=== PATIENT | female | born 1955 | race Caucasian/White ===

== ENCOUNTER 2017-04-08 17:59 | Inpatient (IN) | payer MEDICARE, OTHER ==
[~2017-04-08] VITALS: Ht 162.6 cm; Wt 87.8 kg
[~2017-04-08 17:59] MED LIST: AMLO10 PO; ASPI81TA45 PO; CITA-48 PO; COLL30OI3 TOP; DOCU1CAP39 PO; ERTA1P IVPB; HYDRA50 PO; LANSO30 PO; LEVEMIR SQ; METO25 PO; NOVOINJ SQ; NYSTT TOP; POTA10IN2 PO; VITA500C PO; [UNRECOGNIZED DRUG - CODE] PO; [UNRECOGNIZED DRUG - CODE] PO
[2017-04-08 18:08] VITALS: BP 173/101; PULSE 96; RESP 28; TEMP 97.7; O2SAT 97
[2017-04-08] MEDS ORDERED: THERM PO (18:49)
[2017-04-08] MEDS ORDERED: METO25TA3 PO (18:49)
[2017-04-08] MEDS ORDERED: FERR325T8 PO (18:49)
[2017-04-08] MEDS ORDERED: HYDR-3583 PO (18:49)
[2017-04-08] MEDS ORDERED: BUME1TAB PO (18:49)
[2017-04-08] MEDS ORDERED: [UNRECOGNIZED DRUG - CODE] PO (18:49)
[2017-04-08] MEDS ORDERED: GABA100C4 PO (18:49)
[2017-04-08] MEDS ORDERED: AMLO10TA2 PO (18:49)
[2017-04-08] MEDS ORDERED: SERT-132 PO (18:49)
[2017-04-08] MEDS ORDERED: SENN8.6T36 PO (18:49)
[2017-04-08] MEDS ORDERED: POTA10CA PO (18:49)
[2017-04-08] MEDS ORDERED: HYDR-3801 PO (18:49)
[2017-04-08] MEDS ORDERED: LEVEMIR SQ (18:49)
[2017-04-08] MEDS ORDERED: OMEP20TA PO (18:49)
[2017-04-08] MEDS ORDERED: SPIR25TA PO (18:49)
[2017-04-08] MEDS ORDERED: LORA-373 PO (18:49)
[2017-04-08] MEDS ORDERED: ASPI81TA11 PO (18:49)
[2017-04-08] MEDS ORDERED: RISP0.5T2 PO (18:49)
--- NOTE | 2017-04-08 19:01 | PD ---
HPI Chief Complaint: Respiratory Symptoms Time Seen by Provider: 18:43 Travel History International Travel<30 days: No Contact w/Intl Traveler<30days: No Traveled to known affect area: No History of Present Illness HPI 61-year-old female brought in from [facility] with question of pneumonia. Patient has history of left hemiplegia and hemiparesis following a cerebral infarction, GCS of 6, history of essential hypertension, dysphagia, or depressive disorder, type 2 diabetes, schizophrenia, and history of atrial fibrillation. Patient has a history of MRSA. Patient is very limited in her ability to converse. Call was placed to the nursing facility to determine why they sent her over here specifically. [facility] staff reported that she was found with cyanosis around the lips and mottling of the hands and fingers with decreased O2 sat. Patient was placed on 4 L of O2 and did improve, but then had episodes of dropping into the high 80s low 90s on an O2 sat. EMS was called have her evaluated here. She is noted to be 100% on room air with 2 L nasal cannula. Vital signs are stable. Temperature is 97.7 orally. Patient has history of MRSA as well as recurrent urinary tract infections. Patient has no known drug allergies. PFSH Past Medical History Anemia: Yes Arthritis: Yes Asthma: No Atrial Fibrillation: Yes Blood Disorders: No Bipolar Disorder: Yes Anxiety: Yes Depression: Yes Heart Rhythm Problems: Yes (TACHYCARDIA ) Cancer: No Cardiac Catheterization: Yes (2007) Cardiovascular Problems: Yes High Cholesterol: No Chemotherapy: No Chest Pain: No Congestive Heart Failure: No COPD: No Cerebrovascular Accident: Yes Coronary Artery Disease: Yes Diabetes: Yes Patient Takes Glucophage: No Diminished Hearing: No GERD: No Glaucoma: No Genitourinary: Yes (HYDRONEPHROSIS, KIDNEY CALCULUS ) Headaches: Yes Hepatitis: No Hiatal Hernia: No Hypertension: Yes Kidney Stones: No Musculoskeletal: Yes Neurologic: Yes Psychiatric: Yes Immunizations Current: No Migraines: No Myocardial Infarction: No Radiation Therapy: No Renal Failure: No Schizophrenia: Yes Seizures: No Sickle Cell Disease: No Sleep Apnea: No Thyroid Disease: No Ulcer: No PNEUMOCCOCAL Vaccine (Year): 1 Menopausal: Yes : 1 Para: 1 Past Surgical History Abdominal Surgery: Yes (HYSTERECTOMY) AICD: No Appendectomy: No Arteriovenous Shunt: No Body Medical Devices: CARDIAC STENT Section: Yes Cholecystectomy: No Coronary Stent: Yes Endocrine Surgery: No Gynecologic Surgery: Yes (HYSTRECTOMY ) Hysterectomy: Yes (1988) Insulin Pump: No Joint Replacement: No Neurologic Surgery: Yes (unknown) Oral Surgery: Yes (EXTRACTION) Pacemaker: No Tonsillectomy: Yes Other Surgery: Yes Social History Alcohol Use: No Tobacco Use: No Substance Use: No Allergies-Medications (Allergen,Severity, Reaction): Coded Allergies: *MDRO Multi-Drug Resistant Organism (Verified Adverse Reaction, Unknown, 05/23/15) 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 ESBL + E. 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 Thera M Plus (Multivitamins/Minerals Therapeutic) 1 Tab 1 Tab PO DAILY Spironolactone 25 Mg Tab 25 Mg PO DAILY Sertraline (Sertraline HCl) 50 Mg Tab 50 Mg PO DAILY Senna-Tabs (Sennosides) 8.6 Mg Tab 8.6 Mg PO BID Risperidone 0.5 Mg Tab 0.5 Mg PO TID Potassium Chloride ER (Potassium Chloride) 10 Meq Cap 10 Meq PO DAILY Omeprazole 20 Mg Tab 20 Mg PO DAILY Metoprolol Tartrate 25 Mg Tab 25 Mg PO BID Lorazepam 0.5 Mg Tab 0.5 Mg PO TID PRN Hydrocodone-Acetaminophen 10-325 mg Tab 1 Tab PO Q4H PRN Hydralazine (Hydralazine HCl) 100 Mg Tab 50 Mg PO TID Take with meals Review of Systems ROS Limitations: Unresponsive, Speech Impaired, Poor Historian, Other: (GCS 6 is her norm.) General / Constitutional: No: Fever Eyes: No: Visual changes HENT: No: Headaches Cardiovascular: No: Chest Pain or Discomfort Respiratory: No: Shortness of Breath Gastrointestinal: No: Abdominal Pain Genitourinary: No: Dysuria Musculoskeletal: No: Pain Skin: No Rash Neurologic: No: Weakness Psychiatric: No: Depression Endocrine: No: Polydipsia Hematologic/Lymphatic: No: Easy Bruising Physical Exam Narrative GENERAL: Patient appears to be resting comfortably. SKIN: Warm and dry. Normal color. Normal turgor. HEAD: Atraumatic. Normocephalic. EYES: Pupils equal and round. No scleral icterus. No injection or drainage. Patient has cataract and older appearing ulceration of the right eye. Left eye appears normal with reactive pupil. ENT: No nasal bleeding or discharge. Mucous membranes pink and moist. NECK: Trachea midline. Supple. CARDIOVASCULAR: Regular rate and rhythm. RESPIRATORY: No accessory muscle use. Clear to auscultation. Breath sounds equal bilaterally. GASTROINTESTINAL: Abdomen soft, non-tender, nondistended. Hepatic and splenic margins not palpable. MUSCULOSKELETAL: Extremities without clubbing, cyanosis, or edema. No obvious deformities. NEUROLOGICAL: Awake and alert. No obvious cranial nerve deficits. Motor grossly within normal limits. Five out of 5 muscle strength in the arms and legs. Normal speech. PSYCHIATRIC: Appropriate mood and affect; insight and judgment normal. Data Data Last Documented VS Vital Signs Date Time Temp Pulse Resp B/P (MAP) Pulse Ox O2 Delivery O2 Flow Rate FiO2 04/08/17 20:18 100 3.00 04/08/17 20:18 Nasal Cannula 04/08/17 19:19 75 12 Orders Orders Electrocardiogram (04/08/17 19:02) Complete Blood Count With Diff (04/08/17 19:02) Comprehensive Metabolic Panel (04/08/17 19:02) Lactic Acid Sepsis Protocol (04/08/17 19:02) Magnesium (Mg) (04/08/17 19:02) Urinalysis - C+S If Indicated (04/08/17 19:02) Blood Culture (04/08/17 19:02) Chest, Single Ap (04/08/17 19:02) Blood Glucose (04/08/17 19:02) Ecg Monitoring (04/08/17 19:02) Iv Access Insert/Monitor (04/08/17 19:02) Cath For Specimen (04/08/17:02) Oximetry (04/08/17 19:02) Oxygen Administration (04/08/17 19:02) Sodium Chlorid 0.9% 500 Ml Inj (Ns 500 M (04/08/17 20:45) Urinary Catheter Insert/Apply (04/08/17 20:59) Ct Brain W/O Iv Contrast(Rout) (04/08/17 21:06) Admit Order (Ed Use Only) (04/08/17 21:28) Primer Inspector / Telemetry ROSITA.Q8H (04/08/17 21:28) Vital Signs (Adult) Q4H (04/08/17 21:28) Activity Bed Rest (04/08/17 21:28) Notify Dr: Other (04/08/17 21:28) Labs Laboratory Tests Test 04/08/17 19:45 White Blood Count 13.7 TH/MM3 Red Blood Count 3.67 MIL/MM3 Hemoglobin 10.1 GM/DL Hematocrit 32.0 % Mean Corpuscular Volume 87.2 FL Mean Corpuscular Hemoglobin 27.5 PG Mean Corpuscular Hemoglobin Concent 31.5 % Red Cell Distribution Width 14.6 % Platelet Count 246 TH/MM3 Mean Platelet Volume 9.3 FL Neutrophils (%) (Auto) 74.5 % Lymphocytes (%) (Auto) 17.7 % Monocytes (%) (Auto) 6.5 % Eosinophils (%) (Auto) 0.8 % Basophils (%) (Auto) 0.5 % Neutrophils # (Auto) 10.2 TH/MM3 Lymphocytes # (Auto) 2.4 TH/MM3 Monocytes # (Auto) 0.9 TH/MM3 Eosinophils # (Auto) 0.1 TH/MM3 Basophils # (Auto) 0.1 TH/MM3 CBC Comment DIFF FINAL Differential Comment Urine Color YELLOW Urine Turbidity CLOUDY Urine pH 7.0 Urine Specific Halsey 1.018 Urine Protein 100 mg/dL Urine Glucose (UA) NEG mg/dL Urine Ketones NEG mg/dL Urine Occult Blood MOD Urine Nitrite NEG Urine Bilirubin NEG Urine Urobilinogen LESS THAN 2.0 MG/DL Urine Leukocyte Esterase LARGE Urine RBC 20 /hpf Urine WBC /hpf Urine Squamous Epithelial Cells 2 /hpf Urine Amorphous Sediment RARE Urine Bacteria MANY /hpf Microscopic Urinalysis Comment CATH-CULTURE IND Blood Urea Nitrogen 56 MG/DL Creatinine 3.43 MG/DL Random Glucose 137 MG/DL Total Protein 8.8 GM/DL Albumin 3.0 GM/DL Calcium Level 10.3 MG/DL Magnesium Level 2.7 MG/DL Alkaline Phosphatase 132 U/L Aspartate Amino Transf (AST/SGOT) 38 U/L Alanine Aminotransferase (ALT/SGPT) 32 U/L Total Bilirubin 0.4 MG/DL Sodium Level 145 MEQ/L Potassium Level 4.5 MEQ/L Chloride Level 105 MEQ/L Carbon Dioxide Level 28.7 MEQ/L Anion Gap 11 MEQ/L Estimat Glomerular Filtration Rate 14 ML/MIN Lactic Acid Level 0.3 mmol/L [facility] Medical Decision Making Medical Screen Exam Complete: Yes Emergency Medical Condition: Yes Differential Diagnosis Hypoxia. PE. Pneumonia. Electrolyte imbalance. Dehydration. Anemia. Renal insufficiency. Sepsis. Narrative Course Patient appears medically stable at time of exam. O2 sat is maintaining her 100 % with 2 L nasal cannula. Labs ordered including CBC, CMP,, blood cultures 2, and urinalysis. CT the head is ordered. Chest x-ray is ordered. CTA of the lungs are ordered to rule out PE pending creatinine. Chest x-ray is read as cardiomegaly with no acute pulmonary disease per radiologist. CBC shows leukocytosis of 13.7. Hemoglobin was 10.1. Hematocrit is 32.1. Chemistries show normal electrolytes but a BUN of 56, creatinine of 3.43 which is markedly elevated from her previous creatinine of 2.27 from October 2016. Random glucose is 137, calcium is 10.3, MBs of 2.7, AST is 38, ALT is 32, alkaline phosphatase 132, Lactic acid is 0.3. CTA of the lungs is canceled. IV bolus of 500 mL of normal saline. Patient is discussed with Dr. Perdomo who agrees with this plan. The hospitalist was called for admission due to the patient's acute on chronic kidney failure, elevated serum creatinine, and dehydration. Diagnosis Primary Impression: Acute on chronic kidney failure Qualified Codes: N17.9 - Acute kidney failure, unspecified; N18.9 - Chronic kidney disease, unspecified Additional Impressions: Elevated serum creatinine Dehydration Admitting Information Admitting Physician Requests: Admit Condition: Stable Julio Morales Apr 08, 2017 19:01
[2017-04-08 19:19] VITALS: BP 134/72; PULSE 75; RESP 12; O2SAT 100
--- NOTE | 2017-04-08 19:47 | RADRPT ---
EXAM DATE/TIME: 04/08/2017 19:12 [facility] COMPARISON: CHEST SINGLE AP, June 01, 2015, 13:36. INDICATIONS : Cough. MEDICAL HISTORY : unobtainable SURGICAL HISTORY : unobtainable ENCOUNTER: Initial ACUITY: 1 day PAIN SCORE: Non-responsive. LOCATION: Bilateral chest FINDINGS: The cardiac silhouette is enlarged in transverse diameter. The lungs are free of acute parenchymal op acity. No effusions are identified. The aortic knob is prominent with tortuosity of the descending th oracic aorta. CONCLUSION: 1. Cardiomegaly. No acute pulmonary disease. Lexa Glass MD on April 08, 2017 at 19:45 Board Certified Radiologist. This report was verified electronically.
[2017-04-08 20:00] LABS: AUTOMATED NEUTROPHIL # 10.2 TH/MM3 (1.8-7.7); BASOPHIL # 0.1 TH/MM3 (0-0.2); BASOPHIL % 0.5 % (0.0-2.0); EOSINOPHIL # 0.1 TH/MM3 (0-0.4); EOSINOPHIL % 0.8 % (0.0-4.0); HEMO FLAGS DIFF FINAL; LYMPH % 17.7 % (9.0-44.0); LYMPHOCYTE # 2.4 TH/MM3 (1.0-4.8); MEAN CELL VOLUME 87.2 FL (80.0-100.0); MEAN CORPUSCULAR HEMOGLOBIN 27.5 PG (27.0-34.0); MEAN CORPUSCULAR HGB CONC 31.5 % (32.0-36.0); MONO % 6.5 % (0.0-8.0); NEUT % 74.5 % (16.0-70.0); PLATELET COUNT 246 TH/MM3 (150-450); RED BLOOD COUNT 3.67 MIL/MM3 (4.00-5.30); RED CELL DISTRIBUTION WIDTH 14.6 % (11.6-17.2); WHITE BLOOD COUNT 13.7 TH/MM3 (4.0-11.0)
[2017-04-08 20:15] LABS: ALT (GPT) 32 U/L (10-53)
[2017-04-08 20:18] VITALS: O2SAT 100
[2017-04-08 20:18] LABS: ALKALINE PHOSPHATASE 132 U/L (45-117); TOTAL BILIRUBIN ADULT 0.4 MG/DL (0.2-1.0)
[2017-04-08 20:21] LABS: ANION GAP 11 MEQ/L (5-15); AST (GOT) 38 U/L (15-37); BICARBONATE 28.7 MEQ/L (21.0-32.0); BLOOD UREA NITROGEN 56 MG/DL (7-18); CHLORIDE 105 MEQ/L (98-107); GLOMERULAR FILTRATION RATE 14 ML/MIN (>89); MAGNESIUM 2.7 MG/DL (1.5-2.5); POTASSIUM 4.5 MEQ/L (3.5-5.1); SODIUM (NA) 145 MEQ/L (136-145)
[2017-04-08] MEDS ORDERED: SODIUM CHLORID 0.9% 500 ML INJ 500 ML IV ONE (20:45)
[2017-04-08 21:40] LABS: BACTERIA, URINE MANY /hpf; BLOOD, URINE MOD (NEG); GLUCOSE,URINE NEG (NEG); KETONE, URINE NEG (NEG); NITRITE,URINE NEG (NEG); SQUAMOUS EPITHELIAL CELL URINE 2 /hpf (0-5); URINE COLOR YELLOW (YELLW/STRAW)
[2017-04-08 21:41] LABS: COMMENT (UR) CATH-CULTURE IND; CULTURE IF INDICATED CATH CULTURE IND
[2017-04-08] MEDS ORDERED: cefTRIAXone INJ 1,000 MG in SODIUM CHLORIDE 0.9% INJ 100 ML IV SCH (22:45)
[2017-04-08] MEDS ORDERED: NALOXONE HCL 0.4 MG/ML AMP IV PUSH PRN (22:45)
[2017-04-08] MEDS ORDERED: ACETAMINOPHEN 325 MG TAB PO PRN (22:45)
[2017-04-08] MEDS ORDERED: BISACODYL 10 MG SUPP RECTAL PRN (22:45)
[2017-04-08] MEDS ORDERED: SODIUM CHLORIDE 0.9% FLUSH 10 ML FLUSH IV FLUSH PRN (22:45)
[2017-04-08] MEDS ORDERED: MAGNESIUM HYDROXIDE SUSP 30 ML CUP PO PRN (22:45)
[2017-04-08] MEDS ORDERED: ONDANSETRON HCL 4 MG/2 ML VIAL IVP PRN (22:45)
[2017-04-08] MEDS ORDERED: SENNOSIDES 8.6 MG TAB PO PRN (22:45)
[2017-04-08] MEDS ORDERED: LACTULOSE SYRUP 20 GM/30 ML CUP PO PRN (22:45)
--- NOTE | 2017-04-08 22:46 | RADRPT ---
EXAM DATE/TIME: 04/08/2017 22:35 [facility] COMPARISON: CT BRAIN W/O CONTRAST, February 10, 2014, 6:23. INDICATIONS : Altered mental status. RADIATION DOSE: 32.52 CTDIvol (mGy) MEDICAL HISTORY : Cardiovascular disease. Cerebrovascular disease. Hypertension. SURGICAL HISTORY : Coronary artery stent. Hysterectomy. ENCOUNTER: Initial ACUITY: 1 day PAIN SCALE: Non-responsive LOCATION: cranial TECHNIQUE: Multiple contiguous axial images were obtained of the head. Using automated exposure control and adj ustment of the mA and/or kV according to patient size, radiation dose was kept as low as reasonably a chievable to obtain optimal diagnostic quality images. DICOM format image data is available electro nically for review and comparison. FINDINGS: There is no evidence of acute cortical infarction, acute hemorrhage, mass effect or midline shift. Th ere is old right temporoparietal infarct with cystic encephalomalacia and calcification. There is ex vacuo dilatation of the body of the right lateral ventricle. Posterior fossa structures are unremarka ble. CONCLUSION: 1. Large old right temporoparietal infarct. 2. No evidence of acute intracranial pathology. No masses are identified. Lexa Glass MD on April 08, 2017 at 22:43 Board Certified Radiologist. This report was verified electronically.
[2017-04-08 23:00] VITALS: O2SAT 99
[2017-04-08] MEDS: HEPARIN SODIUM - SQ 10,000 UNITS/ML VIAL SQ SCH (23:49)
[2017-04-08] MEDS: SODIUM CHLOR 0.45% 1000 ML INJ 1,000 ML IV SCH (23:49)
[2017-04-09] VITALS (8 sets, daily range): BP systolic 123–143; BP diastolic 55–79; PULSE 60–99; RESP 14–18; TEMP 97.5–98.2; O2SAT 95–100
[2017-04-09] MEDS: SODIUM CHLORIDE 0.9% FLUSH 10 ML FLUSH IV FLUSH SCH ×2 (07:30→19:35)
[2017-04-09 08:22] LABS: AUTOMATED NEUTROPHIL # 9.2 TH/MM3 (1.8-7.7); BASOPHIL % 0.4 % (0.0-2.0); EOSINOPHIL # 0.1 TH/MM3 (0-0.4); HEMATOCRIT 31.7 % (35.0-46.0); HEMO FLAGS DIFF FINAL; LYMPH % 16.8 % (9.0-44.0); LYMPHOCYTE # 2.1 TH/MM3 (1.0-4.8); MEAN CORPUSCULAR HEMOGLOBIN 27.8 PG (27.0-34.0); MEAN CORPUSCULAR HGB CONC 31.6 % (32.0-36.0); MONO % 6.4 % (0.0-8.0); NEUT % 75.4 % (16.0-70.0); PLATELET COUNT 228 TH/MM3 (150-450); RED BLOOD COUNT 3.61 MIL/MM3 (4.00-5.30); RED CELL DISTRIBUTION WIDTH 14.4 % (11.6-17.2); WHITE BLOOD COUNT 12.2 TH/MM3 (4.0-11.0)
[2017-04-09 08:47] LABS: POTASSIUM 4.1 MEQ/L (3.5-5.1)
[2017-04-09] MEDS ORDERED: RESP: ALBUTEROL 2.5 MG/IPRATROPIUM 0.5 MG NEB (PRN) NEB (09:30)
--- NOTE | 2017-04-09 09:56 | EKG ---
Date Performed: 04/08/2017 Time Performed: 21:07:45 PTAGE: 61 years EKG: Sinus rhythm NONSPECIFIC T-WAVE ABNORMALITY BORDERLINE ECG Compared to prior tracing no significant change DOCTOR: Lexa So Interpretating Date/Time 04/09/2017 09:55:30
--- NOTE | 2017-04-09 11:52 | HHI.HP ---
[facility] Unknown Admission Diagnosis Elevated Troponin/Dehydration Diagnoses: Chief Complaint: low saturation Travel History International Travel<30 Days: No Contact w/Intl Traveler <30 Da: No Traveled to Known Affected Are: No History of Present Illness Mrs. Wilson is a 61-year-old white female is a resident from a local prison , significant past medical history of stroke with left-sided hemiparesis, frequent UTIs and hematuria, renal stones, history of ESBL infection, hypertension, schizophrenia, type 2 diabetes, renal insufficiency. Patient was sent from a local prison after she was noted cyanotic around the lips and mottling of the hands and fingers with decreased O2 sats. Patient was placed on 2 L and sats improved. She was noted dropping sats to the 80s 90s. EMS was called, she was noted with 100% sats on 2 L. There was no reported fever, no chills. Patient is not able to provide any information, at this time she is lethargic. Patient was evaluated in the emergency room, laboratory workup was completed. CT of the head was unremarkable. Chest x-ray show cardiomegaly but no acute findings. CBC remarkable for leukocytosis of 13.7, hemoglobin 10.1 hematocrit 32.1. BMP remarkable for BUN of 56, creatinine 3.43. The rest of the laboratory workup was unremarkable. Lactic acid was 0.3. Rebolledo catheter was inserted. Urinalysis positive for leukocyte esterase, bacteriuria. Patient was given IV fluid bolus, cultures were obtained and she was started on empiric antibiotics. Facility send medical records, patient does have a history of hematuria and renal stones. She follows up with Dr. Ascencio. Apparently she had a recent renal ultrasound that showed right hydronephrosis and left atrophic kidney. She had a follow-up CT of the abdomen that showed bilateral nonobstructive stones. No intervention was indicated at that time. Patient is now evaluated, she is lethargic, she awakes to voice but falls back asleep. She's noted with diffuse coarse rhonchi. Sats are 97% on 3 L. She's noted dehydrated. Patient is a full code, there are no advance directives. Patient is admitted for further evaluation and treatment. Review of Systems ROS Limitations: Clinical Condition, Altered Mental Status Past Family Social History Past Medical History CVA with left-sided hemiparesis, bipolar, schizophrenia, depression and anxiety , CAD, hypertension, atrial fibrillation on Xarelto, hyperlipidemia, diabetes mellitus, osteoarthritis, decubitus ulcer on heel and sacral area chronic, history of carotid stenosis and recently hospitalized March 2015 for severe sepsis History kidney stones, hematuria. History of ESBL infection Past Surgical History Hysterectomy, cardiac stent RCA and LAD, tonsillectomy, ORIF left hip, dental extractions, placement of urinary stent Reported Medications Reported Meds & Active Scripts Active Reported Gabapentin 100 Mg Cap 100 Mg PO DAILY Ferrous Sulfate 325 Mg (65 Mg Iron) Tablet 325 Mg PO TIDPC Bumetanide 1 Mg Tab 1 Mg PO DAILY Aspirin EC (Aspirin) 81 Mg Tabdr 81 Mg PO DAILY Amlodipine (Amlodipine Besylate) 10 Mg Tab 10 Mg PO DAILY Glytrol (Nut.tx.gluc.intoler,Lac-Fr,Soy) 1,000 Ml Liquid 60 Ml PO TID Levemir Inj (Insulin Detemir) 1,000 unit/ 10 ML Vial 7 Units SQ HS Do not mix with any other Insulin. Thera M Plus (Multivitamins/Minerals Therapeutic) 1 Tab 1 Tab PO DAILY Spironolactone 25 Mg Tab 25 Mg PO DAILY Sertraline (Sertraline HCl) 50 Mg Tab 50 Mg PO DAILY Senna-Tabs (Sennosides) 8.6 Mg Tab 8.6 Mg PO BID Risperidone 0.5 Mg Tab 0.5 Mg PO TID Potassium Chloride ER (Potassium Chloride) 10 Meq Cap 10 Meq PO DAILY Omeprazole 20 Mg Tab 20 Mg PO DAILY Metoprolol Tartrate 25 Mg Tab 25 Mg PO BID Lorazepam 0.5 Mg Tab 0.5 Mg PO TID PRN Hydrocodone-Acetaminophen 10-325 mg Tab 1 Tab PO Q4H PRN Hydralazine (Hydralazine HCl) 100 Mg Tab 50 Mg PO TID Take with meals Allergies: Coded Allergies: *MDRO Multi-Drug Resistant Organism (Verified Adverse Reaction, Unknown, 05/23/15) 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 ESBL + E. 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 Ordered Medications Inpatient Medications Acetaminophen (Tylenol) 650 mg Q4H PRN PO TEMP > 100.4; Start 04/08/17 at 22:45 Albuterol/ Ipratropium (Duoneb Neb) 1 ampule Q4HR NEB PRN NEB WHEEZING; Start 04/09/17 at 09:30 Amlodipine Besylate (Norvasc) 10 mg DAILY PO ; Start 04/10/17 at 09:00 Aspirin (Ecotrin Ec) 81 mg DAILY PO ; Start 04/10/17 at 09:00 Bisacodyl (Dulcolax Supp) 10 mg DAILY PRN RECTAL SEVERE CONSITIPATION; Start 04/08/17 at 22:45 Ceftriaxone Sodium 1000 mg/ Sodium Chloride 100 ml @ 200 mls/hr Q24H IV Last administered on 04/08/17t 23:49; Start 04/08/17 at 22:45 Ferrous Sulfate (Ferrous Sulfate) 325 mg TIDPC PO ; Start 04/09/17 at 09:30 Heparin Sodium (Porcine) (Heparin Inj) 5,000 units Q12H SQ Last administered on 04/08/17 23:49; Start 04/08/17 at 23:00 Hydralazine HCl (Apresoline) 50 mg TID PO ; Start 04/09/17 at 13:00 Lactulose (Lactulose Liq) 30 ml DAILY PRN PO SEVERE CONSITIPATION; Start at 22:45 Lorazepam (Ativan) 0.5 mg TID PRN PO ANXIETY; Start 04/09/17 at 09:30 Magnesium Hydroxide (Milk Of Magnesia Liq) 30 ml Q12H PRN PO MILD - MODERATE CONSTIPATION; Start 04/08/17 at 22:45 Metoprolol Tartrate (Lopressor) 25 mg BID PO ; Start 04/09/17 at 21:00 Naloxone HCl (Narcan Inj) 0.4 mg UNSCH PRN IV PUSH SEE LABEL COMMENTS; Start 04/08/17 at 22:45 Ondansetron HCl (Zofran Inj) 4 mg Q6H PRN IVP NAUSEA OR VOMITING; Start at 22:45 Pantoprazole Sodium (Protonix) 20 mg DAILY PO ; Start 04/10/17 at 09:00 Potassium Chloride (KCl) 10 meq DAILY PO ; Start 04/10/17 at 09:00 Risperidone (risperDAL) 0.5 mg TID PO ; Start 04/09/17 at 13:00 Sennosides (Senokot) 17.2 mg Q12H PRN PO MODERATE - SEVERE CONSTIPATION; Start 04/08/17 at 22:45 Sertraline HCl (Zoloft) 50 mg DAILY PO ; Start 04/10/17 at 09:00 Sodium Chloride 1,000 ml @ 100 mls/hr Q10H IV Last administered on 04/08/17 23:49; Start 04/08/17 at 23:00 Sodium Chloride (NS Flush) 2 ml BID IV FLUSH Last administered on 04/09/17 07 :30; Start 04/09/17 at 09:00 Family History Reviewed and noncontributory Social History Patient currently lives [facility] No report of EtOH use tobacco use or illicit drug use Physical Exam Vital Signs Vital Signs Date Time Temp Pulse Resp B/P (MAP) Pulse Ox O2 Delivery O2 Flow Rate FiO2 04/09/17 11:24 Nasal Cannula 3.00 04/09/17 08:06 98.0 70 18 127/58 (81) 100 04/09/17 04:00 97.5 64 16 129/79 (96) 100 04/09/17 02:58 60 04/09/17 01:45 Nasal Cannula 3.00 04/09/17 01:20 98.0 88 14 124/76 (92) 97 04/08/17 23:00 99 Nasal Cannula 3.00 04/08/17 20:18 100 3.00 04/08/17 20:18 100 Nasal Cannula 3.00 04/08/17 20:18 100 Nasal Cannula 3.00 04/08/17 19:19 75 12 134/72 (92) 100 Physical Exam GENERAL: This is a chronically ill appearing female, appears older than stated age. Lethargic. SKIN: No rashes, ecchymoses or lesions. Cool and dry. HEAD: Atraumatic. Normocephalic. No temporal or scalp tenderness. EYES: Pupils equal round and reactive. Extraocular motions intact. No scleral icterus. No injection or drainage. ENT: Nose without bleeding, purulent drainage or septal hematoma. Airway patent. Oral mucosa with dry secretions, mucosa dry. NECK: Trachea midline. No JVD or lymphadenopathy. Supple, nontender, no meningeal signs. CARDIOVASCULAR: Regular rate and rhythm without murmurs, gallops, or rubs. RESPIRATORY: Coarse rhonchi throughout. GASTROINTESTINAL: Abdomen soft, non-tender, nondistended. No hepato-splenomegaly , or palpable masses. No guarding. : Cloudy urine via Rebolledo MUSCULOSKELETAL: Atrophy noted to both lower extremities. Left wrist contracture. Bilateral lower extremities with trace pretibial edema. Pedal pulses 2+ bilaterally. NEUROLOGICAL: Lethargic, verbalizing very little. Not following commands. Left -sided hemiparesis from previous CVA. Laboratory Laboratory Tests Test 04/08/17 19:45 04/09/17 06:45 White Blood Count 13.7 12.2 Red Blood Count 3.67 3.61 Hemoglobin 10.1 10.0 Hematocrit 32.0 31.7 Mean Corpuscular Volume 87.2 88.0 Mean Corpuscular Hemoglobin 27.5 27.8 Mean Corpuscular Hemoglobin Concent 31.5 31.6 Red Cell Distribution Width 14.6 14.4 Platelet Count 246 228 Mean Platelet Volume 9.3 9.0 Neutrophils (%) (Auto) 74.5 75.4 Lymphocytes (%) (Auto) 17.7 16.8 Monocytes (%) (Auto) 6.5 6.4 Eosinophils (%) (Auto) 0.8 1.0 Basophils (%) (Auto) 0.5 0.4 Neutrophils # (Auto) 10.2 9.2 Lymphocytes # (Auto) 2.4 2.1 Monocytes # (Auto) 0.9 0.8 Eosinophils # (Auto) 0.1 0.1 Basophils # (Auto) 0.1 0.0 CBC Comment DIFF FINAL DIFF FINAL Differential Comment Urine Color YELLOW Urine Turbidity CLOUDY Urine pH 7.0 Urine Specific [place] 1.018 Urine Protein 100 Urine Glucose (UA) NEG Urine Ketones NEG Urine Occult Blood MOD Urine Nitrite NEG Urine Bilirubin NEG Urine Urobilinogen LESS THAN 2.0 Urine Leukocyte Esterase LARGE Urine RBC 20 Urine WBC Urine Squamous Epithelial Cells 2 Urine Amorphous Sediment RARE Urine Bacteria MANY Microscopic Urinalysis Comment CATH-CULTURE IND Blood Urea Nitrogen 56 56 Creatinine 3.43 3.30 Random Glucose 137 141 Total Protein 8.8 Albumin 3.0 Calcium Level 10.3 10.1 Magnesium Level 2.7 Alkaline Phosphatase 132 Aspartate Amino Transf (AST/SGOT) 38 Alanine Aminotransferase (ALT/SGPT) 32 Total Bilirubin 0.4 Sodium Level 145 145 Potassium Level 4.5 4.1 Chloride Level 105 108 Carbon Dioxide Level 28.7 28.0 Anion Gap 11 9 Estimat Glomerular Filtration Rate 14 14 Lactic Acid Level 0.3 Date/Time Source Procedure Growth Status 04/08/17 19:46 Blood Peripheral Aerobic Blood Culture - Preliminary NO GROWTH IN 1 DAY Resulted 04/08/17 19:46 Anaerobic Blood Culture - Preliminary Gram Negative Chapo Resulted 04/08/17 19:45 Urine Catheterized Urine Urine Culture Pending Received Result Diagram: 04/09/17 0645 04/09/17 0645 Imaging Last Impressions Head CT 04/08/[id number] Signed Impressions: Service Date/Time: Saturday, April 08, 2017 22:35 - CONCLUSION: 1. Large old right temporoparietal infarct. 2. No evidence of acute intracranial pathology. No masses are identified. Lexa Glass MD Chest X-Ray 04/08/[id number] Signed Impressions: Service Date/Time: Saturday, April 08, 2017 19:12 - CONCLUSION: 1. Cardiomegaly. No acute pulmonary disease. MD Kendal Herzog VTE Risk Assessment Caprini VTE Risk Assessment: Mod/High Risk (score >= 2) Caprini Risk Assessment Model Point Value = 1 Point Value = 2 Point Value = 3 Point Value = 5 Age 41-60 Minor surgery BMI > 25 kg/m2 Swollen legs Varicose veins or History of unexplained or recurrent spontaneous Oral contraceptives or hormone replacement Sepsis (< 1 month) Serious lung disease, including pneumonia (< 1 month) Abnormal pulmonary function Acute myocardial infarction Congestive heart failure (< 1 month) History of inflammatory bowel disease Medical patient at bed rest Age 61-74 Arthroscopic surgery Major open surgery (> 45 min) Laparoscopic surgery (> 45 min) Malignancy Confined to bed (> 72 hours) Immobilizing plaster cast Central venous access Age >= 75 History of VTE Family history of VTE Factor V Leiden Prothrombin [id number] Lupus anticoagulant Anticardiolipin antibodies Elevated serum homocysteine Heparin-induced thrombocytopenia Other congenital or acquired thrombophilia Stroke (< 1 month) Elective arthroplasty Hip, pelvis, or leg fracture Acute spinal cord injury (< 1 month) Prophylaxis Regimen Total Risk Factor Score Risk Level Prophylaxis Regimen 0-1 Low Early ambulation 2 Moderate Order ONE of the following: *Sequential Compression Device (SCD) *Heparin 5000 units SQ BID 3-4 Higher Order ONE of the following medications: *Heparin 5000 units SQ TID *Enoxaparin/Lovenox 40 mg SQ daily (WT < 150 kg, CrCl > 30 mL/min) *Enoxaparin/Lovenox 30 mg SQ daily (WT < 150 kg, CrCl > 10-29 mL/min) *Enoxaparin/Lovenox 30 mg SQ BID (WT < 150 kg, CrCl > 30 mL/min) AND/OR *Sequential Compression Device (SCD) 5 or more Highest Order ONE of the following medications: *Heparin 5000 units SQ TID (Preferred with Epidurals) *Enoxaparin/Lovenox 40 mg SQ daily (WT < 150 kg, CrCl > 30 mL/min) *Enoxaparin/Lovenox 30 mg SQ daily (WT < 150 kg, CrCl > 10-29 mL/min) *Enoxaparin/Lovenox 30 mg SQ BID (WT < 150 kg, CrCl > 30 mL/min) AND *Sequential Compression Device (SCD) Assessment and Plan Problem List: (1) Altered mental status ICD Codes: R41.82 - Altered mental status, unspecified Status: Acute (2) Hypoxia ICD Codes: R09.02 - Hypoxemia Status: Acute (3) Dehydration ICD Codes: E86.0 - Dehydration Status: Acute (4) Acute on chronic kidney failure ICD Codes: N17.9 - Acute kidney failure, unspecified; N18.9 - Chronic kidney disease, unspecified Status: Acute (5) History of CVA with residual deficit ICD Codes: I69.30 - Unspecified sequelae of cerebral infarction Status: Chronic (6) UTI (urinary tract infection) ICD Codes: N39.0 - Urinary tract infection, site not specified Status: Acute (7) Atrial fibrillation ICD Codes: I48.91 - Unspecified atrial fibrillation Status: Chronic (8) Kidney calculus ICD Codes: N20.0 - Calculus of kidney Status: Acute (9) CAD (coronary artery disease) ICD Codes: I25.10 - CAD (coronary artery disease) Status: Chronic (10) Dyslipidemia ICD Codes: E78.5 - Hyperlipidemia, unspecified Status: Chronic (11) Schizophrenia ICD Codes: F20.9 - Schizophrenia, unspecified Status: Chronic Assessment and Plan Admit to Dr. Huerta 61-year-old female with history of CVA, kidney stones, UTI. Patient was [facility] from prison for hypoxia, altered mental status. Altered mental status, likely multifactorial -secondary to infectious process, dehydration, acute kidney injury -Continue with IV fluids -Monitor neuro status -Check ammonia now -Keep nothing by mouth for now Recurrent UTI, history of ESBL in the past -Continue with empiric antibiotics and follow cultures Reported hypoxia Noted with coarse rhonchi, possibly pulmonary process -Continue with oxygen at 2 L to keep his sats greater than 92 -We'll repeat chest x-ray in the morning. -DuoNeb's 4 times a day and when necessary Acute on chronic kidney injury, history of renal stones. Dehydration -Continue with Rebolledo catheter -Avoid nephrotoxic agents -We'll check renal ultrasound -Continue with IV fluid -BMP in the morning History of CVA with left-sided hemiparesis -Continue with medical management History of A. fib, currently sinus rhythm. Patient used to be on Xarelto, no longer on anticoagulation due to hematuria. -Continuous cardiac telemetry -Continue beta brayan History Schizophrenia -Continue medical management Home medications have been reviewed, initiated as indicated Heparin 5000 units subcutaneous twice a day for DVT prophylaxis Per review of prison records, patient has no advance directives. She is to remain a full code Plan of care has been discussed with attending and RN. Further management of the patient will be dependent on the hospital course Condition is guarded This patient was seen by myself and Dr. Huerta, this H&P is written on his behalf Physician Certification 2 Midnight Certification Type: Admission for Inpatient Services Order for Inpatient Services The services are ordered in accordance with Medicare regulations or non- Medicare payer requirements, as applicable. In the case of services not specified as inpatient-only, they are appropriately provided as inpatient services in accordance with the 2-midnight benchmark. Estimated LOS (days): 2 2 days is the estimated time the patient will need to remain in the hospital, assuming treatment plan goals are met and no additional complications. Post-Hospital Plan: SNF Problem Qualifiers (1) Altered mental status: Qualified Codes: R41.82 - Altered mental status, unspecified (2) Acute on chronic kidney failure: Qualified Codes: N17.9 - Acute kidney failure, unspecified; N18.9 - Chronic kidney disease, unspecified (3) UTI (urinary tract infection): (4) Atrial fibrillation: Qualified Codes: I48.91 - Unspecified atrial fibrillation (5) CAD (coronary artery disease): Qualified Codes: I25.10 - Atherosclerotic heart disease of [place] coronary artery without angina pectoris (6) Schizophrenia: Qualified Codes: F20.9 - Schizophrenia, unspecified Taylor Nielson Apr 09, 2017 11:52
[2017-04-09] MEDS: FERROUS SULFATE 325 MG (65 MG ELEMENTAL IRON) TAB PO SCH ×3 (13:30→18:30)
[2017-04-09] MEDS: hydrALAZINE HCL 50 MG TAB PO SCH ×2 (13:40→18:00)
[2017-04-09] MEDS: HEPARIN SODIUM - SQ 10,000 UNITS/ML VIAL SQ SCH ×2 (13:42→22:31)
[2017-04-09] MEDS: SODIUM CHLOR 0.45% 1000 ML INJ 1,000 ML IV SCH ×2 (13:42→19:35)
[2017-04-09] MEDS: risperiDONE 0.5 MG TAB PO SCH ×2 (13:51→18:00)
[2017-04-09] MEDS: AZITHROMYCIN INJ 500 MG in SODIUM CHLOR 0.9% 250 ML INJ 250 ML IV SCH (13:51)
--- NOTE | 2017-04-09 15:48 | RADRPT ---
EXAM DATE/TIME: 04/09/2017 14:33 [facility] COMPARISON: CHEST SINGLE AP, April 08, 2017, 19:12. CT ABDOMEN & PELVIS W/O CONTRAST, June 01, 2015, 16:04 . US KIDNEY/RENAL/BLADDER, May 25, 2015, 11:59. INDICATIONS : Increased Bun and Creatinine. MEDICAL HISTORY : Renal calculus. Cardiovascular disease. Cerebrovascular disease. Hypertension. SURGICAL HISTORY : Coronary artery stent. Hysterectomy. ENCOUNTER: Subsequent ACUITY: 1 day PAIN SCORE: Nonresponsive. LOCATION: Bilateral flank MEASUREMENTS: RIGHT KIDNEY: 12.1 x 7.1 x 5.9 cm LEFT KIDNEY: Non visualized FINDINGS: There are multiple stones within the right kidney without hydronephrosis the largest measuring 15 mm in the renal pelvis. There is echogenic debris within the calyces which may reflect pyonephrosis. Th e left kidney is not visualized but is small and atrophic on previous CT scan. CONCLUSION: 1. Right renal stone with possible pyonephrosis. Lexa Glass MD on April 09, 2017 at 15:39 Board Certified Radiologist. This report was verified electronically.
[2017-04-09] MEDS: RESP: ALBUTEROL 2.5 MG/IPRATROPIUM 0.5 MG NEB (SCH) NEB ×2 (16:19→20:54)
[2017-04-09] MEDS ORDERED: MIDAZOLAM HCL 2 MG/2 ML VIAL ONE ×2 (16:54→17:38)
[2017-04-09] MEDS ORDERED: Vancomycin Consult Pharmacy 1 EA OTHER SCH (17:45)
[2017-04-09] MEDS ORDERED: VANCOMYCIN INJ 1,000 MG in SODIUM CHLOR 0.9% 250 ML INJ 250 ML IV ONE (17:45)
--- NOTE | 2017-04-09 17:53 | PD.RAD ---
Post Procedure Progress Note Pre Procedure Diagnosis: (1) Fever Post Procedure Diagnosis: (1) Fever Procedure Date: Apr 09, 2017 Supervising Radiologist: Lexa Glass Proceduralist/Assist: Marilu Greene, RT(R)(), RT Nicholas(R) Anesthesia: Conscious Sedation Plan of Activity Patient to Unit: Nursing Unit Patient Condition: Fair See PACS Report for procedural detail/treatment Drainage Procedure Procedure 1 Imaging Guidance: Fluoroscopy Side: Right Procedure Type: Nephrostomy Procedure: Placement Welsh: 8 (pyonephrosis present specimen sent to lab) Drainage: [place] drainage Fluid Description: Cloudy, Purulent Lexa Glass MD Apr 09, 2017 17:53
[2017-04-09] MEDS ORDERED: IOHEXOL 350 MG/ML 50 ML BTL (for RAD DIAG) OTHER ONE (18:03)
[2017-04-09] MEDS ORDERED: CEFEPIME INJ 2,000 MG in SODIUM CHLORIDE 0.9% INJ 100 ML IV SCH ×2 (18:06→21:00)
[2017-04-09] MEDS ORDERED: VANCOMYCIN INJ 2,000 MG in SODIUM CHLORID 0.9% 500 ML INJ 500 ML IV ONE (18:30)
[2017-04-09] MEDS: METOPROLOL TARTRATE 25 MG TAB PO SCH (20:20)
[2017-04-10] VITALS (9 sets, daily range): BP systolic 114–148; BP diastolic 55–68; PULSE 61–77; RESP 16–24; TEMP 98.3–99.5; O2SAT 93–98
--- NOTE | 2017-04-10 06:42 | RADRPT ---
EXAM DATE/TIME: 04/10/2017 05:58 [facility] COMPARISON: CHEST SINGLE AP, April 08, 2017, 19:12. INDICATIONS : Congestion. MEDICAL HISTORY : Renal calculi. SURGICAL HISTORY : Coronary artery stent. Hysterectomy. ENCOUNTER: Subsequent ACUITY: 2 days PAIN SCORE: Non-responsive. LOCATION: Bilateral chest FINDINGS: A single view of the chest demonstrates the lungs to be symmetrically aerated without evidence of mas s, infiltrate or effusion. The cardiomediastinal contours are unremarkable. Osseous structures are intact. CONCLUSION: No acute disease. Vinny Blount MD on April 10, 2017 at 6:41 Board Certified Radiologist. This report was verified electronically.
[2017-04-10] MEDS: PANTOPRAZOLE SOD 20 MG DELAYED RELEASE TAB PO SCH (09:17)
[2017-04-10] MEDS: ASPIRIN EC 81 MG TABEC PO SCH (09:17)
[2017-04-10] MEDS: SERTRALINE HCL 50 MG TAB PO SCH (09:17)
[2017-04-10] MEDS: hydrALAZINE HCL 50 MG TAB PO SCH ×3 (09:17→17:13)
[2017-04-10] MEDS: risperiDONE 0.5 MG TAB PO SCH ×3 (09:17→17:13)
[2017-04-10] MEDS: METOPROLOL TARTRATE 25 MG TAB PO SCH ×2 (09:17→21:19)
[2017-04-10] MEDS: FERROUS SULFATE 325 MG (65 MG ELEMENTAL IRON) TAB PO SCH ×3 (09:17→17:13)
[2017-04-10] MEDS: SODIUM CHLOR 0.45% 1000 ML INJ 1,000 ML IV SCH ×3 (09:18→18:30)
[2017-04-10] MEDS: HEPARIN SODIUM - SQ 10,000 UNITS/ML VIAL SQ SCH ×2 (09:18→21:20)
[2017-04-10] MEDS: POTASSIUM CHLORIDE 10 MEQ CAP PO SCH (09:18)
[2017-04-10] MEDS: SODIUM CHLORIDE 0.9% FLUSH 10 ML FLUSH IV FLUSH SCH ×2 (09:18→21:19)
[2017-04-10 09:29] LABS: HEMATOCRIT 28.8 % (35.0-46.0); MEAN CELL VOLUME 87.9 FL (80.0-100.0); MEAN CORPUSCULAR HEMOGLOBIN 28.1 PG (27.0-34.0); MEAN CORPUSCULAR HGB CONC 31.9 % (32.0-36.0); PLATELET COUNT 249 TH/MM3 (150-450); RED BLOOD COUNT 3.28 MIL/MM3 (4.00-5.30); RED CELL DISTRIBUTION WIDTH 14.6 % (11.6-17.2); REVIEW FLAG FINAL; WHITE BLOOD COUNT 8.9 TH/MM3 (4.0-11.0)
[2017-04-10 09:59] LABS: BICARBONATE 25.5 MEQ/L (21.0-32.0); POTASSIUM 4.1 MEQ/L (3.5-5.1)
[2017-04-10] MEDS: RESP: ALBUTEROL 2.5 MG/IPRATROPIUM 0.5 MG NEB (SCH) NEB ×3 (11:34→20:02)
--- NOTE | 2017-04-10 12:03 | RADRPT ---
EXAM DATE/TIME: 04/09/2017 17:00 [facility] COMPARISON: NEPHROSTOMY, RIGHT, April 12, 2015, 14:46. INDICATIONS : Patient presents with renal failure in need of right nephrostomy tube placement for drainage. MEDICAL HISTORY : CVA with left-sided hemiparesis Bipolar SchizophreniA Depression and anxiety CAD, Hypertension Atrial fibrillation Hyperlipidemia Diabetes mellitus Osteoarthritis Decubitus ulcer on heel and sacral area Chronic history of carotid stenosis and recently hospitalized Severe sepsis History kidney stones Hematuria. History of ESBL infection SURGICAL HISTORY : Hysterectomy Cardiac stent RCA and LAD Tonsillectomy ORIF left hip Dental extractions Placement of urinary stent ENCOUNTER: Initial ACUITY: 1 day PAIN SCORE: Non-responsive LOCATION: N/A FLUORO TIME: 6.4 minutes IMAGE SERIES: 4 SEDATION TIME: 40 minutes CONTRAST: 40 cc Omnipaque (iohexol) 350 MEDICATION(S): 1.) 3 mg midazolam (Versed) IV 2.) 150 mcg fentanyl (Sublimaze) IV DEVICE(S): 1.) 8 Colombian 25CM EXPEL nephrostomy catheter PROCEDURE : 1. Ultrasound-guided puncture of the kidney. 2. Antegrade percutaneous pyelogram. 3. Percutaneous nephrostomy placement. 4. Conscious sedation with continuous EKG and oximetry monitoring. The risks, benefits and alternatives to the procedure were explained and verbal and written consent w as obtained. The site was prepped in sterile fashion. Full sterile technique was used, including ca p, mask, sterile gloves and gown and a large sterile sheet. Hand hygiene and 2% chlorhexidine and/or betadine/alcohol prep was utilized per protocol for cutaneous antisepsis. Sterile gel and sterile probe cover were utilized for ultrasound guidance. The skin and subcutaneous tissues were infiltrate d with local anesthetic solution. With ultrasound and fluoroscopic guidance the selected kidney was punctured and a percutaneous antegr rosa pyelogram was performed demonstrating a dilated collecting system. Serial dilatation was perform ed and a prescribed nephrostomy tube was placed within the renal pelvis and sutured in place. Specimen demonstrated andrea hydronephrosis and was sent to the lab Conscious sedation was performed with the prescribed dosages and duration as above in the presence of an independent trained radiology nurse to assist in the monitoring of the patient. EKG and oximetry remained stable throughout the procedure. The patient tolerated the procedure well and there were n o complications. The patient was sent to post anesthesia recovery in stable condition. CONCLUSION: Uncomplicated nephrostomy tube placement as above. Lexa Glass MD on April 10, 2017 at 10:48 Board Certified Radiologist. This report was verified electronically.
[2017-04-10] MEDS: AZITHROMYCIN INJ 500 MG in SODIUM CHLOR 0.9% 250 ML INJ 250 ML IV SCH (12:52)
--- NOTE | 2017-04-10 16:46 | PD.CONS ---
HPI Service Urology Consult Requested By Dr. Huerta Reason for Consult Pyonephrosis right kidney Primary Care Physician Unknown Diagnosis: History of Present Illness 61-year-old female with multiple medical problems who is a patient of Dr. Pelletier and status post placement of a right ureteral stent back in 2014 for multiple right renal calculi. Patient was recently admitted from a local longterm as she was noted to have cyanosis involving her lips and mottling of her hands and fingers with decreased O2 sats. Upon arrival to the emergency room the patient was noted to have leukocytosis, elevation of serum creatinine and urinalysis consistent with a UTI. Further workup included a renal ultrasound that demonstrated changes consistent with Pyonephrosis of the right kidney without hydronephrosis as well as a atrophic left kidney. An interventional radiology consult was placed and the patient underwent percutaneous placement of a right nephrostomy tube with immediate drainage of purulent urine. The interventional radiologist had contact me and he informed me that it appeared that the indwelling right ureteral stent was markedly calcified with stone formation involving the proximal loop. At the time of consultation the patient's nephrostomy tube was draining janae appearing urine. Patient denied any pain. Apparently the patient had a recent CT scan done which demonstrated bilateral nonobstructing renal calculi. Review of Systems Constitutional: DENIES: Fever Cardiovascular: DENIES: Chest pain Gastrointestinal: DENIES: Abdominal pain Genitourinary: DENIES: Hematuria Musculoskeletal: DENIES: Back pain Except as stated in HPI: all other systems reviewed are Neg Past Family Social History Past Medical History History CVA Diabetes mellitus Hypertension Schizophrenia Coronary artery disease Atrial fibrillation Hyperlipidemia Osteoarthritis Anxiety/depression Carotid artery stenosis Past Surgical History Hysterectomy Status post cardiac stent placement Status post open reduction internal fixation left hip Status post right ureteral stent placed 2014 Reported Medications Refer to EMR Allergies: Coded Allergies: *MDRO Multi-Drug Resistant Organism (Verified Adverse Reaction, Unknown, 05/23/15) 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 ESBL + E. 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 Ordered Medications Refer to EMR Family History Reviewed and noncontributory Social History longterm resident No history tobacco, alcohol or intravenous drug abuse Physical Exam Vital Signs Date Time Temp Pulse Resp B/P (MAP) Pulse Ox O2 Delivery O2 Flow Rate FiO2 04/10/17 12:00 98.7 64 18 120/68 (85) 93 04/10/17 09:08 Nasal Cannula 3.00 04/10/17 08:18 97 Nasal Cannula 3.00 04/10/17 08:00 98.4 61 18 119/62 (81) 98 04/10/17 04:00 98.6 71 16 114/55 (74) 98 04/10/17 00:00 99.5 76 16 125/60 (81) 98 04/09/17 20:55 97 Nasal Cannula 3.00 04/09/17 20:00 Nasal Cannula 3.00 04/09/17 20:00 71 04/09/17 20:00 97.6 71 16 123/55 (77) 96 04/09/17 18:43 75 12 111/57 (75) 97 Nasal Cannula 3 04/09/17 18:30 75 12 118/61 (80) 97 Nasal Cannula 3 04/09/17 18:15 98.7 79 12 106/44 (64) 98 Nasal Cannula 3 Physical Exam GENERAL: Resting quietly and in no apparent distress. SKIN: No rashes, ecchymoses or lesions. Cool and dry. HEAD: Atraumatic. Normocephalic. No temporal or scalp tenderness. EYES: Pupils equal round and reactive. Extraocular motions intact. No scleral icterus. No injection or drainage. ENT: Nose without bleeding, purulent drainage or septal hematoma. Throat without erythema, tonsillar hypertrophy or exudate. Uvula midline. Airway patent. NECK: Trachea midline. No JVD or lymphadenopathy. Supple, nontender, no meningeal signs. GASTROINTESTINAL: Abdomen soft, non-tender, nondistended. No hepato-splenomegaly , or palpable masses. No guarding. GENITOURINARY: Right Nephrostomy tube in place draining janae urine. MUSCULOSKELETAL: Extremities without clubbing, cyanosis, or edema. NEUROLOGICAL: Awake and alert. Normal speech. Lab results reviewed: Yes Laboratory Tests Test 04/10/17 07:35 White Blood Count 8.9 Red Blood Count 3.28 Hemoglobin 9.2 Hematocrit 28.8 Mean Corpuscular Volume 87.9 Mean Corpuscular Hemoglobin 28.1 Mean Corpuscular Hemoglobin Concent 31.9 Red Cell Distribution Width 14.6 Platelet Count 249 Mean Platelet Volume 9.3 Blood Urea Nitrogen 50 Creatinine 3.07 Random Glucose 134 Calcium Level 10.0 Sodium Level 148 Potassium Level 4.1 Chloride Level 112 Carbon Dioxide Level 25.5 Anion Gap 11 Estimat Glomerular Filtration Rate 15 Date/Time Source Procedure Growth Status 04/08/17 19:46 Blood Peripheral Aerobic Blood Culture - Final Escherichia Coli Esbl Positive Resulted 04/08/17 19:46 Anaerobic Blood Culture - Preliminary Escherichia Coli Resulted 04/08/17 19:45 Urine Catheterized Urine Urine Culture - Preliminary Escherichia Coli Esbl Positive Gram Negative Chapo Resulted 04/09/17 17:43 Abscess Other Gram Stain - Final Resulted 04/09/17 17:43 Wound Culture - Preliminary Gram Negative Chapo Resulted Result Diagram: 04/10/17 0735 04/10/17 0735 Personally reviewed images: Yes Imaging Last Impressions Chest X-Ray 04/10/17 0600 Signed Impressions: Service Date/Time: Monday, April 10, 2017 05:58 - CONCLUSION: No acute disease. Vinny Blount MD Renal Ultrasound 04/09/17 0000 Signed Impressions: Service Date/Time: Sunday, April 09, 2017 14:33 - CONCLUSION: 1. Right renal stone with possible pyonephrosis. Lexa Glass MD Nephrostomy 04/09/17 0000 Signed Impressions: Service Date/Time: Sunday, April 09, 2017 17:00 - CONCLUSION: Uncomplicated nephrostomy tube placement as above. Lexa Glass MD Head CT 04/08/172105 Signed Impressions: Service Date/Time: Saturday, April 08, 2017 22:35 - CONCLUSION: 1. Large old right temporoparietal infarct. 2. No evidence of acute intracranial pathology. No masses are identified. Lexa Glass MD Assessment and Plan Assessment and Plan Urologic impression: #1 right pyonephrosis secondary to long-standing retained ureteral stent with calcified proximal loop #2 status post placement of a right nephrostomy tube #3 atrophic left kidney Recommendations: #1 continue right nephrostomy to gravity drainage #2 agree with antibiotic therapy #3 patient will require extracorporeal shockwave lithotripsy of the calcified right ureteral stent prior to removal #4 patient may elect to follow up with her established urologist Dr. Pelletier for further urologic care after hospital discharge Edgar Chong MD Apr 10, 2017 16:46
--- NOTE | 2017-04-10 17:59 | HHI.PR ---
Subjective Remarks Patient has some mild ache in her back otherwise no complaint She is alert and oriented 3 Has no chest pain no shortness of breath no abdominal pain [place] no nausea vomiting Review of system for 10 point system otherwise unremarkable Objective Objective Results - Vital Signs Date Time Temp Pulse Resp B/P (MAP) Pulse Ox O2 Delivery O2 Flow Rate FiO2 04/10/17 16:00 99.2 69 18 127/68 (87) 93 04/10/17 12:00 98.7 64 18 120/68 (85) 93 04/10/17 09:08 Nasal Cannula 3.00 04/10/17 08:18 97 Nasal Cannula 3.00 04/10/17 08:00 98.4 61 18 119/62 (81) 98 04/10/17 04:00 98.6 71 16 114/55 (74) 98 04/10/17 00:00 99.5 76 16 125/60 (81) 98 04/09/17 20:55 97 Nasal Cannula 3.00 04/09/17 20:00 Nasal Cannula 3.00 04/09/17 20:00 71 04/09/17 20:00 97.6 71 16 123/55 (77) 96 04/09/17 18:43 75 12 111/57 (75) 97 Nasal Cannula 3 04/09/17 18:30 75 12 118/61 (80) 97 Nasal Cannula 3 04/09/17 18:15 98.7 79 12 106/44 (64) 98 Nasal Cannula 3 I/O 04/09/17 04/09/17 04/09/17 04/10/17 04/10/17 04/10/17 06:59 14:59 22:59 06:59 14:59 22:59 Intake Total 1000 ml 420 ml Output Total 650 ml 1300 ml 950 ml 1075 ml Balance -650 ml 1000 ml -880 ml -950 ml -1075 ml Intake Oral 420 ml IV Total 1000 ml Output Urine Total 650 ml 1300 ml 100 ml Drainage Total 850 ml 1075 ml # Bowel Movements 1 Result Diagram: 04/10/17 0735 04/10/17 0735 Imaging Last Impressions Head CT 04/08/172105 Signed Impressions: Service Date/Time: Saturday, April 08, 2017 22:35 - CONCLUSION: 1. Large old right temporoparietal infarct. 2. No evidence of acute intracranial pathology. No masses are identified. Lexa Glass MD Chest X-Ray 04/08/171901 Signed Impressions: Service Date/Time: Saturday, April 08, 2017 19:12 - CONCLUSION: 1. Cardiomegaly. No acute pulmonary disease. Lexa Glass MD Other Results Laboratory Tests Test 04/10/17 07:35 White Blood Count 8.9 Red Blood Count 3.28 Hemoglobin 9.2 Hematocrit 28.8 Mean Corpuscular Volume 87.9 Mean Corpuscular Hemoglobin 28.1 Mean Corpuscular Hemoglobin Concent 31.9 Red Cell Distribution Width 14.6 Platelet Count 249 Mean Platelet Volume 9.3 Blood Urea Nitrogen 50 Creatinine 3.07 Random Glucose 134 Calcium Level 10.0 Sodium Level 148 Potassium Level 4.1 Chloride Level 112 Carbon Dioxide Level 25.5 Anion Gap 11 Estimat Glomerular Filtration Rate 15 Date/Time Source Procedure Growth Status 04/08/17 19:46 Blood Peripheral Aerobic Blood Culture - Final Escherichia Coli Esbl Positive Resulted 04/08/17 19:46 Anaerobic Blood Culture - Preliminary Escherichia Coli Resulted 04/08/17 19:45 Urine Catheterized Urine Urine Culture - Preliminary Escherichia Coli Esbl Positive Gram Negative Chapo Resulted 04/09/17 17:43 Abscess Other Gram Stain - Final Resulted 04/09/17 17:43 Wound Culture - Preliminary Gram Negative Chapo Resulted Physical Exam Physical Exam GENERAL: This is a chronically ill appearing female, appears older than stated age. Alert oriented SKIN: No rashes, ecchymoses or lesions. Cool and dry. HEAD: Atraumatic. Normocephalic. No temporal or scalp tenderness. EYES: Pupils equal round and reactive. Extraocular motions intact. No scleral icterus. No injection or drainage. ENT: Oral mucosa moist NECK: Trachea midline. No JVD or lymphadenopathy. Supple, nontender, no meningeal signs. CARDIOVASCULAR: Regular rate and rhythm without murmurs, gallops, or rubs. RESPIRATORY: Coarse breathing. GASTROINTESTINAL: Abdomen soft, non-tender, nondistended. No hepato-splenomegaly , or palpable masses. No guarding. : Clear urine in urine bag from urostomy tube MUSCULOSKELETAL: Atrophy noted to both lower extremities. Left wrist contracture. Bilateral lower extremities with trace pretibial edema. Pedal pulses 2+ bilaterally. NEUROLOGICAL: Alert oriented. Left-sided hemiparesis from previous CVA. A/P Assessment and Plan (1) Altered mental status ICD Codes: R41.82 - Altered mental status, unspecified Status: Acute (2) Hypoxia ICD Codes: R09.02 - Hypoxemia Status: Acute (3) Dehydration ICD Codes: E86.0 - Dehydration Status: Acute (4) Acute on chronic kidney failure ICD Codes: N17.9 - Acute kidney failure, unspecified; N18.9 - Chronic kidney disease, unspecified Status: Acute (5) History of CVA with residual deficit ICD Codes: I69.30 - Unspecified sequelae of cerebral infarction Status: Chronic (6) UTI (urinary tract infection) ICD Codes: N39.0 - Urinary tract infection, site not specified Status: Acute (7) Atrial fibrillation ICD Codes: I48.91 - Unspecified atrial fibrillation Status: Chronic (8) Kidney calculus ICD Codes: N20.0 - Calculus of kidney Status: Acute (9) CAD (coronary artery disease) ICD Codes: I25.10 - CAD (coronary artery disease) Status: Chronic (10) Dyslipidemia ICD Codes: E78.5 - Hyperlipidemia, unspecified Status: Chronic (11) Schizophrenia ICD Codes: F20.9 - Schizophrenia, unspecified Status: Chronic Plan Admit to Dr. Huerta 61-year-old female with history of CVA, kidney stones, UTI. Patient was sent from [facility] for hypoxia, altered mental status. Altered mental status, likely multifactorial -secondary to infectious process, dehydration, acute kidney injury. Metabolic encephalopathy on admission now seems like back to baseline -Continue with IV fluids -Monitor neuro status -Within normal ammonia now Recurrent UTI, history of ESBL in the past -Continue with empiric antibiotics and urine culture showing ESBL will change antibiotic plan for ID cancer Reported hypoxia Noted with coarse rhonchi, possibly pulmonary process -Continue with oxygen at 2 L to keep his sats greater than 92 -We'll repeat chest x-ray in the morning. -DuoNeb's 4 times a day and when necessary Acute on chronic kidney injury, history of renal stones. Dehydration -Continue with Rebolledo catheter -Avoid nephrotoxic agents -Report of renal ultrasound reviewed showing pyelonephrosis status post urostomy tube right side -Continue with IV fluid -Labs reviewed. Hypernatremia will monitor and adjust IV fluids History of CVA with left-sided hemiparesis -Continue with medical management History of A. fib, currently sinus rhythm. Patient used to be on Xarelto, no longer on anticoagulation due to hematuria. -Continuous cardiac telemetry -Continue beta brayan History Schizophrenia -Continue medical management Home medications have been reviewed, initiated as indicated Heparin 5000 units subcutaneous twice a day for DVT prophylaxis Per review of [facility] records, patient has no advance directives. She is to remain a full code Plan of care has been discussed with patient. Further management of the patient will be dependent on the hospital course Israel Huerta MD Apr 10, 2017 17:59
[2017-04-10] MEDS ORDERED: ERTAPENEM SODIUM 1000 MG VIAL IM SCH (22:00)
[2017-04-11] VITALS (10 sets, daily range): BP systolic 119–153; BP diastolic 63–83; PULSE 69–76; RESP 16–20; TEMP 97.3–97.8; O2SAT 68–100
[2017-04-11] MEDS: SODIUM CHLOR 0.45% 1000 ML INJ 1,000 ML IV SCH ×2 (05:55→14:51)
[2017-04-11 07:33] LABS: HEMATOCRIT 30.5 % (35.0-46.0); MEAN CORPUSCULAR HEMOGLOBIN 27.7 PG (27.0-34.0); MEAN CORPUSCULAR HGB CONC 31.8 % (32.0-36.0); PLATELET COUNT 274 TH/MM3 (150-450); RED BLOOD COUNT 3.51 MIL/MM3 (4.00-5.30); RED CELL DISTRIBUTION WIDTH 14.2 % (11.6-17.2); REVIEW FLAG FINAL; WHITE BLOOD COUNT 8.7 TH/MM3 (4.0-11.0)
[2017-04-11 08:02] LABS: BICARBONATE 24.5 MEQ/L (21.0-32.0); POTASSIUM 4.3 MEQ/L (3.5-5.1)
[2017-04-11] MEDS: RESP: ALBUTEROL 2.5 MG/IPRATROPIUM 0.5 MG NEB (SCH) NEB ×4 (08:52→21:04)
[2017-04-11] MEDS: SODIUM CHLORIDE 0.9% FLUSH 10 ML FLUSH IV FLUSH SCH ×2 (09:00→21:55)
[2017-04-11] MEDS: risperiDONE 0.5 MG TAB PO SCH ×3 (09:36→17:43)
[2017-04-11] MEDS: PANTOPRAZOLE SOD 20 MG DELAYED RELEASE TAB PO SCH (09:36)
[2017-04-11] MEDS: FERROUS SULFATE 325 MG (65 MG ELEMENTAL IRON) TAB PO SCH ×3 (09:36→17:49)
[2017-04-11] MEDS: POTASSIUM CHLORIDE 10 MEQ CAP PO SCH (09:36)
[2017-04-11] MEDS: ASPIRIN EC 81 MG TABEC PO SCH (09:37)
[2017-04-11] MEDS: SERTRALINE HCL 50 MG TAB PO SCH (09:37)
[2017-04-11] MEDS: hydrALAZINE HCL 50 MG TAB PO SCH ×3 (09:37→17:43)
[2017-04-11] MEDS: METOPROLOL TARTRATE 25 MG TAB PO SCH ×2 (09:37→21:55)
--- NOTE | 2017-04-11 10:12 | PD.ID.CON ---
History of Present Illness Service ID Consult Requested By Reason for Consult Evaluation and Mment of Sepsis, ESBL bacteremia and recurrent UTI in pt with renal stent. Primary Care Physician Unknown Diagnoses: History of Present Illness Mrs. Wilson is a 61-year-old white female is a resident from a local snf , significant past medical history of stroke with left-sided hemiparesis, frequent UTIs and hematuria, renal stones, history of ESBL infection, hypertension, schizophrenia, type 2 diabetes, renal insufficiency. Patient was sent from a local snf after she was noted cyanotic around the lips and mottling of the hands and fingers with decreased O2 sats. Patient was placed on 2 L and sats improved. She was noted dropping sats to the 80s 90s. EMS was called, she was noted with 100% sats on 2 L. There was no reported fever, no chills. Patient is not able to provide any information, at this time she is lethargic. Patient was evaluated in the emergency room, laboratory workup was completed. CT of the head was unremarkable. Chest x-ray show cardiomegaly but no acute findings. CBC remarkable for leukocytosis of 13.7, hemoglobin 10.1 hematocrit 32.1. BMP remarkable for BUN of 56, creatinine 3.43. The rest of the laboratory workup was unremarkable. Lactic acid was 0.3. Rebolledo catheter was inserted. Urinalysis positive for leukocyte esterase, bacteriuria. Patient was given IV fluid bolus, cultures were obtained and she was started on empiric antibiotics. Facility send medical records, patient does have a history of hematuria and renal stones. She follows up with Dr. Ascencio. Apparently she had a recent renal ultrasound that showed right hydronephrosis and left atrophic kidney. She had a follow-up CT of the abdomen that showed bilateral nonobstructive stones. No intervention was indicated at that time. Patient is now evaluated, she is lethargic, she awakes to voice but falls back asleep. She's noted with diffuse coarse rhonchi. Sats are 97% on 3 L. Sepsis workup positive for ESBL bacteremia and UTI. s.p Nephrostomy tube placement. ID consulted for evaluation and Mment of Sepsis, ESBL bacteremia, ESBL UTI. Review of Systems ROS Limitations: Altered Mental Status Past Family Social History Allergies: Coded Allergies: *MDRO Multi-Drug Resistant Organism (Verified Adverse Reaction, Unknown, 05/23/15) 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 ESBL + E. 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 Past Medical History CVA with left-sided hemiparesis, bipolar, schizophrenia, depression anxiety, CAD, hypertension, atrial fibrillation on Xarelto, hyperlipidemia, diabetes mellitus, osteoarthritis, decubitus ulcer on heel and sacral area chronic, history of carotid stenosis and recently hospitalized March 2015 for severe sepsis History kidney stones, hematuria. History of ESBL infection *MDRO Multi-Drug Resistant Organism (Verified Adverse Reaction, Unknown, ) 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 ESBL + E. 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 Past Surgical History Hysterectomy, cardiac stent RCA and LAD, tonsillectomy, ORIF left hip, dental extractions, placement of urinary stent Reported Medications I attest I obtained, reviewed or updated the home and current meds for name, dose, freq and route of administration. Reported Meds & Active Scripts Active Reported Gabapentin 100 Mg Cap 100 Mg PO DAILY Ferrous Sulfate 325 Mg (65 Mg Iron) Tablet 325 Mg PO TIDPC Bumetanide 1 Mg Tab 1 Mg PO DAILY Aspirin EC (Aspirin) 81 Mg Tabdr 81 Mg PO DAILY Amlodipine (Amlodipine Besylate) 10 Mg Tab 10 Mg PO DAILY Glytrol (Nut.tx.gluc.intoler,Lac-Fr,Soy) 1,000 Ml Liquid 60 Ml PO TID Levemir Inj (Insulin Detemir) 1,000 unit/ 10 ML Vial 7 Units SQ HS Do not mix with any other Insulin. Thera M Plus (Multivitamins/Minerals Therapeutic) 1 Tab 1 Tab PO DAILY Spironolactone 25 Mg Tab 25 Mg PO DAILY Sertraline (Sertraline HCl) 50 Mg Tab 50 Mg PO DAILY Senna-Tabs (Sennosides) 8.6 Mg Tab 8.6 Mg PO BID Risperidone 0.5 Mg Tab 0.5 Mg PO TID Potassium Chloride ER (Potassium Chloride) 10 Meq Cap 10 Meq PO DAILY Omeprazole 20 Mg Tab 20 Mg PO DAILY Metoprolol Tartrate 25 Mg Tab 25 Mg PO BID Lorazepam 0.5 Mg Tab 0.5 Mg PO TID PRN Hydrocodone-Acetaminophen 10-325 mg Tab 1 Tab PO Q4H PRN Hydralazine (Hydralazine HCl) 100 Mg Tab 50 Mg PO TID Take with meals Active Ordered Medications Current Medications Medications (Trade) Dose Ordered Sig/Sukhi Route Start Time Stop Time Status Last Admin (NS Flush) 2 ml UNSCH PRN IV FLUSH 04/08/17 22:45 (NS Flush) 2 ml BID IV FLUSH 04/09/17 09:00 04/10/17 21:19 (Tylenol) 650 mg Q4H PRN PO 04/08/17 22:45 (Zofran Inj) 4 mg Q6H PRN IVP 04/08/17 22:45 (Heparin Inj) 5,000 units Q12H SQ 04/08/17 23:00 04/10/17 21:20 (Narcan Inj) 0.4 mg UNSCH PRN IV PUSH 04/08/17 22:45 (Milk Of Magnesia Liq) 30 ml Q12H PRN PO 04/08/17 22:45 (Senokot) 17.2 mg Q12H PRN PO 04/08/17 22:45 (Dulcolax Supp) 10 mg DAILY PRN RECTAL 04/08/17 22:45 (Lactulose Liq) 30 ml DAILY PRN PO 04/08/17 22:45 (Duoneb Neb) 1 ampule QID NEB NEB 04/09/17 12:00 04/11/17 08:52 (Duoneb Neb) 1 ampule Q4HR NEB PRN NEB 04/09/17 09:30 (Norvasc) 10 mg DAILY PO 04/10/17 09:00 04/11/17 09:37 (Ecotrin Ec) 81 mg DAILY PO 04/10/17 09:00 04/11/17 09:37 (Ferrous Sulfate) 325 mg TIDPC PO 04/09/17 09:30 04/11/17 09:36 (Apresoline) 50 mg TID PO 04/09/17 13:00 04/11/17 09:37 (Ativan) 0.5 mg TID PRN PO 04/09/17 09:30 (Lopressor) 25 mg BID PO 04/09/17 21:00 04/11/17 09:37 (KCl) 10 meq DAILY PO 04/10/17 09:00 04/11/17 09:36 (risperDAL) 0.5 mg TID PO 04/09/17 13:00 04/11/17 09:36 (Zoloft) 50 mg DAILY PO 04/10/17 09:00 04/11/17 09:37 (Protonix) 20 mg DAILY PO 04/10/17 09:00 04/11/17 09:36 Azithromycin 500 mg/Sodium Chloride 250 ml @ 250 mls/hr Q24H IV 04/09/17 13:00 04/10/17 12:52 (INVanz INJ) 1,000 mg DAILY IM 04/10/17 22:00 04/11/17 00:01 Sodium Chloride 1,000 ml @ 84 mls/hr [id number] IV 04/10/17 18:00 04/11/17 05:55 Family History could not be obtained. Social History Patient currently lives shelter [facility] No report of EtOH use tobacco use or illicit drug use Physical Exam Vital Signs Vital Signs Date Time Temp Pulse Resp B/P (MAP) Pulse Ox O2 Delivery O2 Flow Rate FiO2 04/11/17 08:54 97 Nasal Cannula 2.00 04/11/17 08:00 97.7 69 20 153/83 (106) 100 04/11/17 04:35 97.5 69 18 125/75 (92) 68 04/11/17 03:29 97 04/10/17 23:50 99.0 77 20 148/65 (92) 97 04/10/17 20:12 98.3 76 24 138/63 (88) 93 04/10/17 20:00 74 04/10/17 20:00 Nasal Cannula 3.00 04/10/17 16:00 99.2 69 18 127/68 (87) 93 04/10/17 12:00 98.7 64 18 120/68 (85) 93 Physical Exam GENERAL: This is a well-nourished, well-developed patient, in no apparent distress. SKIN: No rashes, ecchymoses or lesions. Cool and dry. HEAD: Atraumatic. Normocephalic. No temporal or scalp tenderness. EYES: Pupils equal round and reactive. Extraocular motions intact. No scleral icterus. No injection or drainage. ENT: Nose without bleeding, purulent drainage or septal hematoma. Throat without erythema, tonsillar hypertrophy or exudate. Uvula midline. Airway patent. NECK: Trachea midline. Supple, nontender, no meningeal signs. CARDIOVASCULAR: Regular rate and rhythm RESPIRATORY: Clear to auscultation. Breath sounds equal bilaterally. No wheezes , rales, or rhonchi. GASTROINTESTINAL: Abdomen soft, non-tender, nondistended. No hepato-splenomegaly , or palpable masses. No guarding. MUSCULOSKELETAL: Extremities without clubbing, cyanosis, or edema. No joint tenderness, effusion, or edema noted. No calf tenderness. Negative Homans sign bilaterally. NEUROLOGICAL: Awake and alert. follows commands. ? orientation. baseline not known. Psych cooperative IV line sites with no e.o infection. Laboratory Laboratory Tests Test 04/11/17 06:36 White Blood Count 8.7 Red Blood Count 3.51 Hemoglobin 9.7 Hematocrit 30.5 Mean Corpuscular Volume 87.0 Mean Corpuscular Hemoglobin 27.7 Mean Corpuscular Hemoglobin Concent 31.8 Red Cell Distribution Width 14.2 Platelet Count 274 Mean Platelet Volume 9.2 Blood Urea Nitrogen 45 Creatinine 2.64 Random Glucose 164 Calcium Level 9.4 Sodium Level 139 Potassium Level 4.3 Chloride Level 107 Carbon Dioxide Level 24.5 Anion Gap 8 Estimat Glomerular Filtration Rate 18 Random Vancomycin Level 21.1 Date/Time Source Procedure Growth Status 04/08/17 19:46 Blood Peripheral Aerobic Blood Culture - Final Escherichia Coli Esbl Positive Resulted 04/08/17 19:46 Anaerobic Blood Culture - Preliminary Escherichia Coli Resulted 04/08/17 19:45 Urine Catheterized Urine Urine Culture - Preliminary Escherichia Coli Esbl Positive Gram Negative Chapo Resulted 04/09/17 17:43 Abscess Other Gram Stain - Final Resulted 04/09/17 17:43 Wound Culture - Preliminary Gram Negative Chapo Resulted Result Diagram: 04/11/17 0636 04/11/17 0636 Imaging Last Impressions Chest X-Ray 04/10/17 0600 Signed Impressions: Service Date/Time: Monday, April 10, 2017 05:58 - CONCLUSION: No acute disease. Vinny Blount MD Renal Ultrasound 04/09/17 0000 Signed Impressions: Service Date/Time: Sunday, April 09, 2017 14:33 - CONCLUSION: 1. Right renal stone with possible pyonephrosis. Lexa Glass MD Nephrostomy 04/09/17 0000 Signed Impressions: Service Date/Time: Sunday, April 09, 2017 17:00 - CONCLUSION: Uncomplicated nephrostomy tube placement as above. Lexa Glass MD Head CT 04/08/172105 Signed Impressions: Service Date/Time: Saturday, April 08, 2017 22:35 - CONCLUSION: 1. Large old right temporoparietal infarct. 2. No evidence of acute intracranial pathology. No masses are identified. Lexa Glass MD Assessment and Plan Assessment and Plan ESBL E.coli bacteremia ESBL E.coli UTI Renal stent with calcification. s/p right nephrostomy this admission ? baseline Dementia Recs Continue Ertapenem IV Repeat blood cultures Follow cultures Follow clinically. Will d/w Urology about the plan for stent replacement timing. Will need IV antibiotics on discharge. No PICC till cleared by ID. Discussed Condition With Patient is a full code, there are no advance directives in alf records. Will attempt to contact family. Teagan Landaverde MD Apr 11, 2017 10:12
[2017-04-11] MEDS ORDERED: Vancomycin Consult Pharmacy 1 EA OTHER SCH (14:30)
[2017-04-11] MEDS: HEPARIN SODIUM - SQ 10,000 UNITS/ML VIAL SQ SCH ×2 (14:44→23:50)
--- NOTE | 2017-04-11 20:58 | HHI.PR ---
Subjective Remarks Patient has some mild ache in her back otherwise no complaint She is alert and oriented 3 Has no chest pain no shortness of breath no abdominal pain [place] no nausea vomiting Review of system for 10 point system otherwise unremarkable dw rn had some body ach this am Objective Objective Results - Vital Signs Date Time Temp Pulse Resp B/P (MAP) Pulse Ox O2 Delivery O2 Flow Rate FiO2 04/11/17 16:00 97.6 75 20 135/68 (90) 97 04/11/17 12:00 97.8 73 20 119/63 (81) 97 04/11/17 09:36 Nasal Cannula 2.00 04/11/17 08:54 97 Nasal Cannula 2.00 04/11/17 08:00 97.7 69 20 153/83 (106) 100 04/11/17 04:35 97.5 69 18 125/75 (92) 68 04/11/17 03:29 97 04/10/17 23:50 99.0 77 20 148/65 (92) 97 I/O 04/10/17 04/10/17 04/10/17 04/11/17 04/11/17 04/11/17 06:59 14:59 22:59 06:59 14:59 22:59 Intake Total 960 ml 2240 ml 1000 ml 720 ml Output Total 950 ml 2000 ml 1750 ml 1100 ml Balance -950 ml -1040 ml 490 ml 1000 ml -380 ml Intake Oral 960 ml 240 ml 720 ml IV Total 2000 ml 1000 ml Output Urine Total 100 ml 150 ml 250 ml 500 ml Drainage Total 850 ml 1850 ml 1500 ml 600 ml # Bowel Movements 0 0 0 Result Diagram: 04/11/1736 04/11/1736 Imaging Last Impressions Head CT 04/08/172105 Signed Impressions: Service Date/Time: Saturday, April 08, 2017 22:35 - CONCLUSION: 1. Large old right temporoparietal infarct. 2. No evidence of acute intracranial pathology. No masses are identified. Lexa Glass MD Chest X-Ray 04/08/171901 Signed Impressions: Service Date/Time: Saturday, April 08, 2017 19:12 - CONCLUSION: 1. Cardiomegaly. No acute pulmonary disease. Lexa Glass MD Other Results Laboratory Tests Test 04/11/17 06:36 White Blood Count 8.7 Red Blood Count 3.51 Hemoglobin 9.7 Hematocrit 30.5 Mean Corpuscular Volume 87.0 Mean Corpuscular Hemoglobin 27.7 Mean Corpuscular Hemoglobin Concent 31.8 Red Cell Distribution Width 14.2 Platelet Count 274 Mean Platelet Volume 9.2 Blood Urea Nitrogen 45 Creatinine 2.64 Random Glucose 164 Calcium Level 9.4 Sodium Level 139 Potassium Level 4.3 Chloride Level 107 Carbon Dioxide Level 24.5 Anion Gap 8 Estimat Glomerular Filtration Rate 18 Random Vancomycin Level 21.1 Date/Time Source Procedure Growth Status 04/11/17 14:26 Blood Other Aerobic Blood Culture Pending Received 04/11/17 14:26 Blood Other Anaerobic Blood Culture Pending Received 04/08/17 19:45 Urine Catheterized Urine Urine Culture - Final Escherichia Coli Esbl Positive Escherichia Coli Viridans Streptococcus Grp Complete 04/09/17 17:43 Abscess Other Gram Stain - Final Resulted 04/09/17 17:43 Wound Culture - Preliminary Escherichia Coli Gram Negative Chapo Group D Enterococcus Resulted Physical Exam Physical Exam GENERAL: This is a chronically ill appearing female, appears older than stated age. Alert oriented SKIN: No rashes, ecchymoses or lesions. Cool and dry. HEAD: Atraumatic. Normocephalic. No temporal or scalp tenderness. EYES: Pupils equal round and reactive. Extraocular motions intact. No scleral icterus. No injection or drainage. ENT: Oral mucosa moist NECK: Trachea midline. No JVD or lymphadenopathy. Supple, nontender, no meningeal signs. CARDIOVASCULAR: Regular rate and rhythm without murmurs, gallops, or rubs. RESPIRATORY: Coarse breathing. GASTROINTESTINAL: Abdomen soft, non-tender, nondistended. No hepato-splenomegaly , or palpable masses. No guarding. : Clear urine in urine bag from urostomy tube MUSCULOSKELETAL: Atrophy noted to both lower extremities. Left wrist contracture. Bilateral lower extremities with trace pretibial edema. Pedal pulses 2+ bilaterally. NEUROLOGICAL: Alert oriented. Left-sided hemiparesis from previous CVA. A/P Assessment and Plan (1) Altered mental status ICD Codes: R41.82 - Altered mental status, unspecified Status: Acute (2) Hypoxia ICD Codes: R09.02 - Hypoxemia Status: Acute (3) Dehydration ICD Codes: E86.0 - Dehydration Status: Acute (4) Acute on chronic kidney failure ICD Codes: N17.9 - Acute kidney failure, unspecified; N18.9 - Chronic kidney disease, unspecified Status: Acute (5) History of CVA with residual deficit ICD Codes: I69.30 - Unspecified sequelae of cerebral infarction Status: Chronic (6) UTI (urinary tract infection) ICD Codes: N39.0 - Urinary tract infection, site not specified Status: Acute (7) Atrial fibrillation ICD Codes: I48.91 - Unspecified atrial fibrillation Status: Chronic (8) Kidney calculus ICD Codes: N20.0 - Calculus of kidney Status: Acute (9) CAD (coronary artery disease) ICD Codes: I25.10 - CAD (coronary artery disease) Status: Chronic (10) Dyslipidemia ICD Codes: E78.5 - Hyperlipidemia, unspecified Status: Chronic (11) Schizophrenia ICD Codes: F20.9 - Schizophrenia, unspecified Status: Chronic Plan 61-year-old female with history of CVA, kidney stones, UTI. [facility], altered mental status. Altered mental status, likely multifactorial -secondary to infectious process, dehydration, acute kidney injury. Metabolic encephalopathy on admission now seems like back to baseline -Continue with IV fluids -Monitor neuro status -Within normal ammonia now Recurrent UTI, history of ESBL in the past -Continue with empiric antibiotics and urine culture showing ESBL kelly ID input abx per ID Reported hypoxia Noted with coarse rhonchi, now good air entry -Continue with oxygen at 2 L to keep his sats greater than 92 -xrray report reviewed. -DuoNeb's 4 times a day and when necessary Acute on chronic kidney injury, history of renal stones. Dehydration -Continue with Rebolledo catheter -Avoid nephrotoxic agents -Report of renal ultrasound reviewed showing pyelonephrosis status post urostomy tube right side -Continue with IV fluid -Labs reviewed. Hypernatremia improved - kidney fx improving History of CVA with left-sided hemiparesis -Continue with medical management History of A. fib, currently sinus rhythm. Patient used to be on Xarelto, no longer on anticoagulation due to hematuria. -Continuous cardiac telemetry -Continue beta brayan History Schizophrenia -Continue medical management Home medications have been reviewed, initiated as indicated Heparin 5000 units subcutaneous twice a day for DVT prophylaxis Per review of [facility] records, patient has no advance directives. She is to remain a full code Plan of care has been discussed with patient. Further management of the patient will be dependent on the hospital course Israel Huerta MD Apr 11, 2017 20:58
[2017-04-11] MEDS: ERTAPENEM 1,000 MG/NS 100 ML IV SCH ×2 (21:47)
[2017-04-11] MEDS: ACETAMINOPHEN/HYDROcodone 325 MG/5 MG TAB PO PRN (23:59)
[2017-04-12] VITALS (10 sets, daily range): BP systolic 121–147; BP diastolic 68–79; PULSE 51–83; RESP 16–20; TEMP 97.4–99; O2SAT 95–99
[2017-04-12] MEDS: SODIUM CHLOR 0.45% 1000 ML INJ 1,000 ML IV SCH ×2 (03:25→17:40)
[2017-04-12] MEDS: ACETAMINOPHEN/HYDROcodone 325 MG/5 MG TAB PO PRN ×2 (06:25→21:52)
[2017-04-12 08:10] LABS: HEMATOCRIT 30.7 % (35.0-46.0); MEAN CELL VOLUME 86.4 FL (80.0-100.0); MEAN CORPUSCULAR HEMOGLOBIN 27.3 PG (27.0-34.0); MEAN CORPUSCULAR HGB CONC 31.6 % (32.0-36.0); PLATELET COUNT 284 TH/MM3 (150-450); RED BLOOD COUNT 3.55 MIL/MM3 (4.00-5.30); RED CELL DISTRIBUTION WIDTH 14.3 % (11.6-17.2); REVIEW FLAG FINAL; WHITE BLOOD COUNT 7.8 TH/MM3 (4.0-11.0)
[2017-04-12] MEDS: RESP: ALBUTEROL 2.5 MG/IPRATROPIUM 0.5 MG NEB (SCH) NEB ×4 (08:25→19:30)
[2017-04-12 08:46] LABS: BICARBONATE 23.5 MEQ/L (21.0-32.0)
[2017-04-12] MEDS: SODIUM CHLORIDE 0.9% FLUSH 10 ML FLUSH IV FLUSH SCH ×2 (09:00→21:52)
[2017-04-12] MEDS: METOPROLOL TARTRATE 25 MG TAB PO SCH ×2 (10:06→21:52)
[2017-04-12] MEDS: FERROUS SULFATE 325 MG (65 MG ELEMENTAL IRON) TAB PO SCH ×3 (10:06→17:48)
[2017-04-12] MEDS: ASPIRIN EC 81 MG TABEC PO SCH (10:06)
[2017-04-12] MEDS: POTASSIUM CHLORIDE 10 MEQ CAP PO SCH (10:06)
[2017-04-12] MEDS: SERTRALINE HCL 50 MG TAB PO SCH (10:06)
[2017-04-12] MEDS: hydrALAZINE HCL 50 MG TAB PO SCH ×3 (10:06→17:48)
[2017-04-12] MEDS: PANTOPRAZOLE SOD 20 MG DELAYED RELEASE TAB PO SCH (10:06)
[2017-04-12] MEDS: risperiDONE 0.5 MG TAB PO SCH ×3 (10:07→17:48)
[2017-04-12] MEDS: HEPARIN SODIUM - SQ 10,000 UNITS/ML VIAL SQ SCH ×2 (11:00→21:51)
--- NOTE | 2017-04-12 14:13 | EKG ---
Date Performed: 04/12/2017 Time Performed: 11:00:27 PTAGE: 61 years EKG: Sinus rhythm LOW QRS VOLTAGE IN PRECORDIAL LEADS NONSPECIFIC T-WAVE ABNORMALITY BORDERLINE ECG PREVIOUS TRACING : 04/08/2017 21.07 No change from previous tracing noted DOCTOR: Rj Steward Interpretating Date/Time 04/12/2017 14:11:24
--- NOTE | 2017-04-12 14:58 | HHI.IDPN ---
Subjective Subjective Remarks Mrs. Wilson is a 61-year-old white female is a resident from a local [facility] , significant past medical history of stroke with left-sided hemiparesis, frequent UTIs and hematuria, renal stones, history of ESBL infection, hypertension, schizophrenia, type 2 diabetes, renal insufficiency. Patient was sent from a local [facility] after she was noted cyanotic around the lips and mottling of the hands and fingers with decreased O2 sats. Patient was placed on 2 L and sats improved. She was noted dropping sats to the 80s 90s. EMS was called, she was noted with 100% sats on 2 L. There was no reported fever, no chills. Patient is not able to provide any information, at this time she is lethargic. Patient was evaluated in the emergency room, laboratory workup was completed. CT of the head was unremarkable. Chest x-ray show cardiomegaly but no acute findings. CBC remarkable for leukocytosis of 13.7, hemoglobin 10.1 hematocrit 32.1. BMP remarkable for BUN of 56, creatinine 3.43. The rest of the laboratory workup was unremarkable. Lactic acid was 0.3. Rebolledo catheter was inserted. Urinalysis positive for leukocyte esterase, bacteriuria. Patient was given IV fluid bolus, cultures were obtained and she was started on empiric antibiotics. Facility send medical records, patient does have a history of hematuria and renal stones. She follows up with Dr. Ascencio. Apparently she had a recent renal ultrasound that showed right hydronephrosis and left atrophic kidney. She had a follow-up CT of the abdomen that showed bilateral nonobstructive stones. No intervention was indicated at that time. Patient is now evaluated, she is lethargic, she awakes to voice but falls back asleep. She's noted with diffuse coarse rhonchi. Sats are 97% on 3 L. Sepsis workup positive for ESBL bacteremia and UTI. s.p Nephrostomy tube placement. ID consulted for evaluation and Mment of Sepsis, ESBL bacteremia, ESBL UTI. Overnight events with reviewed. No fever No rash No diarrhea Mentation appears to be at baseline. Antibiotics Ertapenem IV Vanco IV Lines Line sites with no e.o infection Past Medical History reviewed Allergies: Coded Allergies: *MDRO Multi-Drug Resistant Organism (Verified Adverse Reaction, Unknown, 05/23/15) 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 ESBL + E. 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 Vital Signs Date Time Temp Pulse Resp B/P (MAP) Pulse Ox O2 Delivery O2 Flow Rate FiO2 04/12/17 12:00 97.6 63 18 147/68 (94) 99 04/12/17 08:26 98 Nasal Cannula 2.00 04/12/17 08:02 51 04/12/17 08:00 97.4 60 16 121/69 (86) 99 04/12/17 04:15 97.5 67 16 130/71 (90) 99 04/11/17 23:38 97.7 72 16 126/79 (95) 98 04/11/17 21:06 97 Nasal Cannula 2.00 04/11/17 20:30 74 04/11/17 20:30 Nasal Cannula 2.00 04/11/17 20:12 97.3 76 16 126/77 (93) 98 04/11/17 16:00 97.6 75 20 135/68 (90) 97 . Laboratory Tests Test 04/11/17 06:36 04/12/17 07:08 White Blood Count 8.7 TH/MM3 7.8 TH/MM3 Red Blood Count 3.51 MIL/MM3 3.55 MIL/MM3 Hemoglobin 9.7 GM/DL 9.7 GM/DL Hematocrit 30.5 % 30.7 % Mean Corpuscular Volume 87.0 FL 86.4 FL Mean Corpuscular Hemoglobin 27.7 PG 27.3 PG Mean Corpuscular Hemoglobin Concent 31.8 % 31.6 % Red Cell Distribution Width 14.2 % 14.3 % Platelet Count 274 TH/MM3 284 TH/MM3 Mean Platelet Volume 9.2 FL 8.5 FL Laboratory Tests Test 04/11/17 06:36 04/12/17 07:08 Blood Urea Nitrogen 45 MG/DL 39 MG/DL Creatinine 2.64 MG/DL 2.19 MG/DL Random Glucose 164 MG/DL 130 MG/DL Calcium Level 9.4 MG/DL 9.7 MG/DL Sodium Level 139 MEQ/L 137 MEQ/L Potassium Level 4.3 MEQ/L 4.0 MEQ/L Chloride Level 107 MEQ/L 104 MEQ/L Carbon Dioxide Level 24.5 MEQ/L 23.5 MEQ/L Anion Gap 8 MEQ/L 10 MEQ/L Estimat Glomerular Filtration Rate 18 ML/MIN 23 ML/MIN Magnesium Level 2.1 MG/DL Microbiology Date/Time Source Procedure Growth Status 04/11/17 14:26 Blood Other Aerobic Blood Culture - Preliminary NO GROWTH IN 1 DAY Resulted 04/11/17 14:26 Blood Other Anaerobic Blood Culture - Preliminary NO GROWTH IN 1 DAY Resulted 04/11/17 14:21 Blood Other Aerobic Blood Culture - Preliminary NO GROWTH IN 1 DAY Resulted 04/11/17 14:21 Blood Other Anaerobic Blood Culture - Preliminary NO GROWTH IN 1 DAY Resulted 04/09/17 17:43 Abscess Other Gram Stain - Final Resulted 04/09/17 17:43 Wound Culture - Preliminary Escherichia Coli Proteus Mirabilis Enterococcus Faecalis Resulted Imaging Last Impressions Chest X-Ray 04/10/17 0600 Signed Impressions: Service Date/Time: Monday, April 10, 2017 05:58 - CONCLUSION: No acute disease. Vinny Blount MD Renal Ultrasound 04/09/17 0000 Signed Impressions: Service Date/Time: Sunday, April 09, 2017 14:33 - CONCLUSION: 1. Right renal stone with possible pyonephrosis. Lexa Glass MD Nephrostomy 04/09/17 0000 Signed Impressions: Service Date/Time: Sunday, April 09, 2017 17:00 - CONCLUSION: Uncomplicated nephrostomy tube placement as above. Lexa Glass MD Head CT 04/08/172105 Signed Impressions: Service Date/Time: Saturday, April 08, 2017 22:35 - CONCLUSION: 1. Large old right temporoparietal infarct. 2. No evidence of acute intracranial pathology. No masses are identified. Lexa Glass MD Physical Exam GENERAL: This is a well-nourished, well-developed patient, in no apparent distress. SKIN: No rashes, ecchymoses or lesions. Cool and dry. HEAD: Atraumatic. Normocephalic. No temporal or scalp tenderness. EYES: Pupils equal round and reactive. Extraocular motions intact. No scleral icterus. No injection or drainage. ENT: Nose without bleeding, purulent drainage or septal hematoma. Throat without erythema, tonsillar hypertrophy or exudate. Uvula midline. Airway patent. NECK: Trachea midline. Supple, nontender, no meningeal signs. CARDIOVASCULAR: Regular rate and rhythm RESPIRATORY: Clear to auscultation. Breath sounds equal bilaterally. No wheezes , rales, or rhonchi. GASTROINTESTINAL: Abdomen soft, non-tender, nondistended. No hepato-splenomegaly , or palpable masses. No guarding. MUSCULOSKELETAL: Extremities without clubbing, cyanosis, or edema. No joint tenderness, effusion, or edema noted. No calf tenderness. Negative Homans sign bilaterally. NEUROLOGICAL: Awake and alert. follows commands. ? orientation. baseline not known. Psych cooperative IV line sites with no e.o infection. Assessment & Plan Remarks ESBL E.coli bacteremia ESBL E.coli UTI Renal stent with calcification. s/p right nephrostomy this admission ? baseline Dementia Recs Continue Ertapenem IV Continue vanco IV Follow repeat blood cultures Follow cultures Follow clinically. Will d/w Urology about the plan for stent replacement timing. Will need IV antibiotics on discharge. No PICC till cleared by ID. Teagan Landaverde MD Apr 12, 2017 14:58
[2017-04-12] MEDS ORDERED: VANCOMYCIN INJ 1,750 MG in SODIUM CHLORID 0.9% 500 ML INJ 500 ML IV ONE (15:00)
[2017-04-12] MEDS: LEVOFLOXACIN 500 MG TAB PO SCH (16:16)
--- NOTE | 2017-04-12 16:59 | HHI.PR ---
Subjective Remarks Patient is more alert and active looking No pain today She is alert and oriented 3 Has no chest pain no shortness of breath no abdominal pain [place] no nausea vomiting Review of system for 10 point system otherwise unremarkable Objective Objective Results - Vital Signs Date Time Temp Pulse Resp B/P (MAP) Pulse Ox O2 Delivery O2 Flow Rate FiO2 04/12/17 15:29 04/12/17 15:28 68 04/12/17 12:00 97.6 63 18 147/68 (94) 99 04/12/17 09:00 Nasal Cannula 2.00 04/12/17 08:26 98 Nasal Cannula 2.00 04/12/17 08:02 51 04/12/17 08:00 97.4 60 16 121/69 (86) 99 04/12/17 04:15 97.5 67 16 130/71 (90) 99 04/11/17 23:38 97.7 72 16 126/79 (95) 98 04/11/17 21:06 97 Nasal Cannula 2.00 04/11/17 20:30 74 04/11/17 20:30 Nasal Cannula 2.00 04/11/17 20:12 97.3 76 16 126/77 (93) 98 I/O 04/11/17 04/11/17 04/11/17 04/12/17 04/12/17 04/12/17 07:00 15:00 23:00 07:00 15:00 23:00 Intake Total 2240 ml 1000 ml 820 ml 240 ml Output Total 1750 ml 1100 ml 1550 ml Balance 490 ml 1000 ml -280 ml -1310 ml Intake Oral 240 ml 720 ml 240 ml IV Total 2000 ml 1000 ml 100 ml Output Urine Total 250 ml 500 ml 100 ml Drainage Total 1500 ml 600 ml 1450 ml # Bowel Movements 0 0 1 Result Diagram: 04/12/17 0708 04/12/17 0708 Imaging Last Impressions Head CT 04/08/172105 Signed Impressions: Service Date/Time: Saturday, April 08, 2017 22:35 - CONCLUSION: 1. Large old right temporoparietal infarct. 2. No evidence of acute intracranial pathology. No masses are identified. Lexa Glass MD Chest X-Ray 04/08/17 1902 Signed Impressions: Service Date/Time: Saturday, April 08, 2017 19:12 - CONCLUSION: 1. Cardiomegaly. No acute pulmonary disease. Lexa Glass MD Other Results Laboratory Tests Test 04/12/17 07:08 White Blood Count 7.8 Red Blood Count 3.55 Hemoglobin 9.7 Hematocrit 30.7 Mean Corpuscular Volume 86.4 Mean Corpuscular Hemoglobin 27.3 Mean Corpuscular Hemoglobin Concent 31.6 Red Cell Distribution Width 14.3 Platelet Count 284 Mean Platelet Volume 8.5 Blood Urea Nitrogen 39 Creatinine 2.19 Random Glucose 130 Calcium Level 9.7 Sodium Level 137 Potassium Level 4.0 Chloride Level 104 Carbon Dioxide Level 23.5 Anion Gap 10 Estimat Glomerular Filtration Rate 23 Magnesium Level 2.1 Random Vancomycin Level 16.3 Date/Time Source Procedure Growth Status 04/11/17 14:26 Blood Other Aerobic Blood Culture - Preliminary NO GROWTH IN 1 DAY Resulted 04/11/17 14:26 Blood Other Anaerobic Blood Culture - Preliminary NO GROWTH IN 1 DAY Resulted 04/08/17 19:45 Urine Catheterized Urine Urine Culture - Final Escherichia Coli Esbl Positive Escherichia Coli Viridans Streptococcus Grp Complete 04/09/17 17:43 Abscess Other Gram Stain - Final Resulted 04/09/17 17:43 Wound Culture - Preliminary Escherichia Coli Proteus Mirabilis Enterococcus Faecalis Resulted Physical Exam Physical Exam GENERAL: This is a chronically ill appearing female, appears older than stated age. Alert oriented SKIN: No rashes, ecchymoses or lesions. Cool and dry. HEAD: Atraumatic. Normocephalic. No temporal or scalp tenderness. EYES: Pupils equal round and reactive. Extraocular motions intact. No scleral icterus. No injection or drainage. ENT: Oral mucosa moist NECK: Trachea midline. No JVD or lymphadenopathy. Supple, nontender, no meningeal signs. CARDIOVASCULAR: Regular rate and rhythm without murmurs, gallops, or rubs. RESPIRATORY: Coarse breathing. GASTROINTESTINAL: Abdomen soft, non-tender, nondistended. No hepato-splenomegaly , or palpable masses. No guarding. : Clear urine in urine bag from urostomy tube MUSCULOSKELETAL: Atrophy noted to both lower extremities. Left wrist contracture. Bilateral lower extremities with trace pretibial edema. Pedal pulses 2+ bilaterally. NEUROLOGICAL: Alert oriented. Left-sided hemiparesis from previous CVA. A/P Assessment and Plan (1) Altered mental status ICD Codes: R41.82 - Altered mental status, unspecified Status: Acute (2) Hypoxia ICD Codes: R09.02 - Hypoxemia Status: Acute (3) Dehydration ICD Codes: E86.0 - Dehydration Status: Acute (4) Acute on chronic kidney failure ICD Codes: N17.9 - Acute kidney failure, unspecified; N18.9 - Chronic kidney disease, unspecified Status: Acute (5) History of CVA with residual deficit ICD Codes: I69.30 - Unspecified sequelae of cerebral infarction Status: Chronic (6) UTI (urinary tract infection) ICD Codes: N39.0 - Urinary tract infection, site not specified Status: Acute (7) Atrial fibrillation ICD Codes: I48.91 - Unspecified atrial fibrillation Status: Chronic (8) Kidney calculus ICD Codes: N20.0 - Calculus of kidney Status: Acute (9) CAD (coronary artery disease) ICD Codes: I25.10 - CAD (coronary artery disease) Status: Chronic (10) Dyslipidemia ICD Codes: E78.5 - Hyperlipidemia, unspecified Status: Chronic (11) Schizophrenia ICD Codes: F20.9 - Schizophrenia, unspecified Status: Chronic Plan 61-year-old female with history of CVA, kidney stones, UTI. Patient was sent from assisted for hypoxia, altered mental status. Altered mental status, likely multifactorial -secondary to infectious process, dehydration, acute kidney injury. Metabolic encephalopathy on admission now seems like back to baseline -Continue with IV fluids -Monitor neuro status -Within normal ammonia now Recurrent UTI, history of ESBL in the past -Continue with empiric antibiotics and urine culture showing ESBL kelly ID input abx per ID Reported hypoxia Noted with coarse rhonchi on admission, now good air entry -Continue with oxygen at 2 L to keep his sats greater than 92 -xrray report reviewed. -DuoNeb's 4 times a day and when necessary Acute on chronic kidney injury, history of renal stones. Dehydration -Continue with Rebolledo catheter -Avoid nephrotoxic agents -Report of renal ultrasound reviewed showing pyelonephrosis status post urostomy tube right side -Continue with IV fluid -Labs reviewed. Hypernatremia improved - kidney fx improving -Appreciate urology input to follow as outpatient with primary urologist, as per hospital urologist History of CVA with left-sided hemiparesis -Continue with medical management History of A. fib, currently sinus rhythm. Patient used to be on Xarelto, no longer on anticoagulation due to hematuria. -Continuous cardiac telemetry -Continue beta brayan History Schizophrenia -Continue medical management Home medications have been reviewed, initiated as indicated Heparin 5000 units subcutaneous twice a day for DVT prophylaxis Per review of assisted records, patient has no advance directives. She is to remain a full code Plan of care has been discussed with patient. Further management of the patient will be dependent on the hospital course Israel Huerta MD Apr 12, 2017 16:59
[2017-04-12] MEDS: ERTAPENEM 1,000 MG/NS 100 ML IV SCH ×2 (21:52)
[2017-04-13] VITALS (8 sets, daily range): BP systolic 121–149; BP diastolic 66–80; PULSE 63–85; RESP 16–20; TEMP 97.4–98.6; O2SAT 95–99
[2017-04-13] MEDS: SODIUM CHLOR 0.45% 1000 ML INJ 1,000 ML IV SCH ×2 (06:16→17:30)
[2017-04-13 08:53] LABS: BICARBONATE 20.8 MEQ/L (21.0-32.0); POTASSIUM 4.1 MEQ/L (3.5-5.1)
[2017-04-13] MEDS: FERROUS SULFATE 325 MG (65 MG ELEMENTAL IRON) TAB PO SCH ×3 (10:46→18:30)
[2017-04-13] MEDS: METOPROLOL TARTRATE 25 MG TAB PO SCH ×2 (10:46→21:30)
[2017-04-13] MEDS: LEVOFLOXACIN 500 MG TAB PO SCH (10:46)
[2017-04-13] MEDS: POTASSIUM CHLORIDE 10 MEQ CAP PO SCH (10:46)
[2017-04-13] MEDS: risperiDONE 0.5 MG TAB PO SCH ×3 (10:46→18:00)
[2017-04-13] MEDS: PANTOPRAZOLE SOD 20 MG DELAYED RELEASE TAB PO SCH (10:47)
[2017-04-13] MEDS: SERTRALINE HCL 50 MG TAB PO SCH (10:47)
[2017-04-13] MEDS: hydrALAZINE HCL 50 MG TAB PO SCH ×3 (10:47→18:00)
[2017-04-13] MEDS: ASPIRIN EC 81 MG TABEC PO SCH (10:47)
[2017-04-13] MEDS: SODIUM CHLORIDE 0.9% FLUSH 10 ML FLUSH IV FLUSH SCH ×2 (10:49→21:00)
[2017-04-13] MEDS: HEPARIN SODIUM - SQ 10,000 UNITS/ML VIAL SQ SCH ×2 (10:52→23:47)
[2017-04-13] MEDS: ACETAMINOPHEN/HYDROcodone 325 MG/5 MG TAB PO PRN (10:52)
--- NOTE | 2017-04-13 11:04 | HHI.PR ---
Subjective Remarks Patient is more alert and active looking No pain today She is alert and oriented 3 Has no chest pain no shortness of breath no abdominal pain [place] no nausea vomiting Review of system for 10 point system otherwise unremarkable Objective Objective Results - Vital Signs Date Time Temp Pulse Resp B/P (MAP) Pulse Ox O2 Delivery O2 Flow Rate FiO2 04/13/17 08:06 98.3 74 20 132/66 (88) 96 04/13/17 04:00 98.0 73 18 130/80 (97) 95 04/13/17 00:00 98.6 68 18 121/74 (90) 96 04/12/17 20:15 Nasal Cannula 2.00 04/12/17 20:15 79 04/12/17 20:00 99.0 83 18 138/75 (96) 96 04/12/17 19:32 95 04/12/17 16:00 98.0 82 20 126/79 (95) 98 04/12/17 15:29 04/12/17 15:28 68 04/12/17 12:00 97.6 63 18 147/68 (94) 99 I/O 04/12/17 04/12/17 04/12/17 04/13/17 04/13/17 04/13/17 07:00 15:00 23:00 07:00 15:00 23:00 Intake Total 240 ml 480 ml 2780 ml 1000 ml Output Total 1550 ml 550 ml 1500 ml Balance -1310 ml -70 ml 2780 ml -500 ml Intake Oral 240 ml 480 ml IV Total 2780 ml 1000 ml Output Urine Total 100 ml 550 ml 550 ml Drainage Total 1450 ml 950 ml # Bowel Movements 1 0 Result Diagram: 04/12/17 0708 04/13/17 07 Imaging Last Impressions Head CT 04/08/172105 Signed Impressions: Service Date/Time: Saturday, April 08, 2017 22:35 - CONCLUSION: 1. Large old right temporoparietal infarct. 2. No evidence of acute intracranial pathology. No masses are identified. Lexa Glass MD Chest X-Ray 04/08/171901 Signed Impressions: Service Date/Time: Saturday, April 08, 2017 19:12 - CONCLUSION: 1. Cardiomegaly. No acute pulmonary disease. Lexa Glass MD Other Results Laboratory Tests Test 04/13/17 07:05 Blood Urea Nitrogen 31 Creatinine 1.94 Random Glucose 115 Calcium Level 9.3 Sodium Level 134 Potassium Level 4.1 Chloride Level 104 Carbon Dioxide Level 20.8 Anion Gap 9 Estimat Glomerular Filtration Rate 26 Date/Time Source Procedure Growth Status 04/11/17 14:26 Blood Other Aerobic Blood Culture - Preliminary NO GROWTH IN 1 DAY Resulted 04/11/17 14:26 Blood Other Anaerobic Blood Culture - Preliminary NO GROWTH IN 1 DAY Resulted 04/08/17 19:45 Urine Catheterized Urine Urine Culture - Final Escherichia Coli Esbl Positive Escherichia Coli Viridans Streptococcus Grp Complete 04/09/17 17:43 Abscess Other Gram Stain - Final Resulted 04/09/17 17:43 Wound Culture - Preliminary Escherichia Coli Proteus Mirabilis Enterococcus Faecalis S. Aureus Mrsa Resulted Physical Exam Physical Exam GENERAL: This is a chronically ill appearing female, appears older than stated age. Alert oriented SKIN: No rashes, ecchymoses or lesions. Cool and dry. HEAD: Atraumatic. Normocephalic. No temporal or scalp tenderness. EYES: Pupils equal round and reactive. Extraocular motions intact. No scleral icterus. No injection or drainage. ENT: Oral mucosa moist NECK: Trachea midline. No JVD or lymphadenopathy. Supple, nontender, no meningeal signs. CARDIOVASCULAR: Regular rate and rhythm without murmurs, gallops, or rubs. RESPIRATORY: Coarse breathing. GASTROINTESTINAL: Abdomen soft, non-tender, nondistended. No hepato-splenomegaly , or palpable masses. No guarding. : Clear urine in urine bag from urostomy tube MUSCULOSKELETAL: Atrophy noted to both lower extremities. Left wrist contracture. Bilateral lower extremities with trace pretibial edema. Pedal pulses 2+ bilaterally. NEUROLOGICAL: Alert oriented. Left-sided hemiparesis from previous CVA. A/P Assessment and Plan (1) Altered mental status ICD Codes: R41.82 - Altered mental status, unspecified Status: Acute (2) Hypoxia ICD Codes: R09.02 - Hypoxemia Status: Acute (3) Dehydration ICD Codes: E86.0 - Dehydration Status: Acute (4) Acute on chronic kidney failure ICD Codes: N17.9 - Acute kidney failure, unspecified; N18.9 - Chronic kidney disease, unspecified Status: Acute (5) History of CVA with residual deficit ICD Codes: I69.30 - Unspecified sequelae of cerebral infarction Status: Chronic (6) UTI (urinary tract infection) ICD Codes: N39.0 - Urinary tract infection, site not specified Status: Acute (7) Atrial fibrillation ICD Codes: I48.91 - Unspecified atrial fibrillation Status: Chronic (8) Kidney calculus ICD Codes: N20.0 - Calculus of kidney Status: Acute (9) CAD (coronary artery disease) ICD Codes: I25.10 - CAD (coronary artery disease) Status: Chronic (10) Dyslipidemia ICD Codes: E78.5 - Hyperlipidemia, unspecified Status: Chronic (11) Schizophrenia ICD Codes: F20.9 - Schizophrenia, unspecified Status: Chronic Plan 61-year-old female with history of CVA, kidney stones, UTI. Patient was sent from [facility] for hypoxia, altered mental status. Altered mental status, likely multifactorial -secondary to infectious process, dehydration, acute kidney injury. Metabolic encephalopathy on admission now seems like back to baseline -Continue with IV fluids -Monitor neuro status. Better back to the baseline -Within normal ammonia now Recurrent UTI, history of ESBL in the past -Continue with empiric antibiotics and urine culture showing ESBL kelly ID input abx per ID Reported hypoxia Noted with coarse rhonchi on admission, now good air entry -Continue with oxygen at 2 L to keep his sats greater than 92 -xrray report reviewed. -DuoNeb's 4 times a day and when necessary Acute on chronic kidney injury, history of renal stones. Dehydration -Continue with Rebolledo catheter -Avoid nephrotoxic agents -Report of renal ultrasound reviewed showing pyelonephrosis status post urostomy tube right side -Continue with IV fluid -Labs reviewed. Hypernatremia improved - kidney fx improving -Appreciate urology input to follow as outpatient with primary urologist, as per hospital urologist History of CVA with left-sided hemiparesis -Continue with medical management History of A. fib, currently sinus rhythm. Patient used to be on Xarelto, no longer on anticoagulation due to hematuria. -Continuous cardiac telemetry -Continue beta brayan History Schizophrenia -Continue medical management Home medications have been reviewed, initiated as indicated Heparin 5000 units subcutaneous twice a day for DVT prophylaxis Per review of [facility] records, patient has no advance directives. She is to remain a full code Plan of care has been discussed with patient. Further management of the patient will be dependent on the hospital course BMP for tomorrow Israel Huerta MD Apr 13, 2017 11:04
[2017-04-13] MEDS ORDERED: Vancomycin Consult Pharmacy 1 EA OTHER SCH (17:30)
[2017-04-13] MEDS ORDERED: VANCOMYCIN 1,000 MG/NS 250 ML IV ONE ×2 (17:30)
[2017-04-13] MEDS: ERTAPENEM 1,000 MG/NS 100 ML IV SCH ×2 (21:30)
[2017-04-14] VITALS (10 sets, daily range): BP systolic 150–164; BP diastolic 74–80; PULSE 65–81; RESP 16–20; TEMP 97.1–98.7; O2SAT 93–98
[2017-04-14] MEDS: LORazepam 0.5 MG TAB PO PRN ×2 (00:05→23:19)
[2017-04-14] MEDS: SODIUM CHLOR 0.45% 1000 ML INJ 1,000 ML IV SCH ×3 (05:25→21:53)
[2017-04-14 08:20] LABS: BICARBONATE 20.4 MEQ/L (21.0-32.0)
[2017-04-14] MEDS: ASPIRIN EC 81 MG TABEC PO SCH (09:04)
[2017-04-14] MEDS: risperiDONE 0.5 MG TAB PO SCH ×3 (09:04→18:44)
[2017-04-14] MEDS: SERTRALINE HCL 50 MG TAB PO SCH (09:04)
[2017-04-14] MEDS: PANTOPRAZOLE SOD 20 MG DELAYED RELEASE TAB PO SCH (09:04)
[2017-04-14] MEDS: hydrALAZINE HCL 50 MG TAB PO SCH ×3 (09:04→18:44)
[2017-04-14] MEDS: POTASSIUM CHLORIDE 10 MEQ CAP PO SCH (09:04)
[2017-04-14] MEDS: FERROUS SULFATE 325 MG (65 MG ELEMENTAL IRON) TAB PO SCH ×3 (09:04→18:44)
[2017-04-14] MEDS: LEVOFLOXACIN 500 MG TAB PO SCH (09:04)
[2017-04-14] MEDS: METOPROLOL TARTRATE 25 MG TAB PO SCH ×2 (09:04→21:54)
[2017-04-14] MEDS: SODIUM CHLORIDE 0.9% FLUSH 10 ML FLUSH IV FLUSH SCH ×2 (09:05→21:00)
[2017-04-14] MEDS: ACETAMINOPHEN/HYDROcodone 325 MG/5 MG TAB PO PRN ×2 (09:15→18:44)
--- NOTE | 2017-04-14 13:23 | HHI.PR ---
Subjective Remarks Patient is more alert and active looking some nausea today and some back pain today She is alert and oriented 3 Has no chest pain no shortness of breath no abdominal pain [place] no nausea vomiting Review of system for 10 point system otherwise unremarkable Objective Objective Results - Vital Signs Date Time Temp Pulse Resp B/P (MAP) Pulse Ox O2 Delivery O2 Flow Rate FiO2 04/14/17 08:06 98.4 77 19 164/75 (104) 97 04/14/17 04:00 97.1 80 16 162/74 (103) 98 04/14/17 04:00 Nasal Cannula 2.00 04/14/17 00:00 98.7 76 16 158/80 (106) 97 04/14/17 00:00 Nasal Cannula 2.00 04/13/17 23:58 Nasal Cannula 2.00 04/13/17 21:02 98 21 04/13/17 20:00 77 04/13/17 20:00 97.7 79 16 143/74 (97) 99 04/13/17 16:06 97.4 70 20 140/74 (96) 98 I/O 04/13/17 04/13/17 04/13/17 04/14/17 04/14/17 04/14/17 07:00 15:00 23:00 07:00 15:00 23:00 Intake Total 1000 ml 584 ml Output Total 1500 ml 1300 ml 1900 ml Balance -500 ml -716 ml -1900 ml IV Total 1000 ml 584 ml Output Urine Total 550 ml 500 ml Drainage Total 950 ml 1300 ml 1400 ml Result Diagram: 04/12/17 0708 04/14/17 0611 Imaging Last Impressions Head CT 04/08/172105 Signed Impressions: Service Date/Time: Saturday, April 08, 2017 22:35 - CONCLUSION: 1. Large old right temporoparietal infarct. 2. No evidence of acute intracranial pathology. No masses are identified. Lexa Glass MD Chest X-Ray 04/08/171901 Signed Impressions: Service Date/Time: Saturday, April 08, 2017 19:12 - CONCLUSION: 1. Cardiomegaly. No acute pulmonary disease. Lexa Glass MD Other Results Laboratory Tests Test 04/14/17 06:11 Blood Urea Nitrogen 27 Creatinine 1.77 Random Glucose 132 Calcium Level 9.2 Sodium Level 136 Potassium Level 4.0 Chloride Level 105 Carbon Dioxide Level 20.4 Anion Gap 11 Estimat Glomerular Filtration Rate 29 Random Vancomycin Level 36.3 Date/Time Source Procedure Growth Status 04/11/17 14:26 Blood Other Aerobic Blood Culture - Preliminary NO GROWTH IN 3 DAYS Resulted 04/11/17 14:26 Blood Other Anaerobic Blood Culture - Preliminary NO GROWTH IN 3 DAYS Resulted 04/08/17 19:45 Urine Catheterized Urine Urine Culture - Final Escherichia Coli Esbl Positive Escherichia Coli Viridans Streptococcus Grp Complete 04/09/17 17:43 Abscess Other Gram Stain - Final Complete 04/09/17 17:43 Wound Culture - Final Escherichia Coli Proteus Mirabilis Enterococcus Faecalis S. Aureus Mrsa Complete Physical Exam Physical Exam GENERAL: This is a chronically ill appearing female, appears older than stated age. Alert oriented SKIN: No rashes, ecchymoses or lesions. Cool and dry. HEAD: Atraumatic. Normocephalic. No temporal or scalp tenderness. EYES: Pupils equal round and reactive. Extraocular motions intact. No scleral icterus. No injection or drainage. ENT: Oral mucosa moist NECK: Trachea midline. No JVD or lymphadenopathy. Supple, nontender, no meningeal signs. CARDIOVASCULAR: Regular rate and rhythm without murmurs, gallops, or rubs. RESPIRATORY: Coarse breathing. GASTROINTESTINAL: Abdomen soft, non-tender, nondistended. No hepato-splenomegaly , or palpable masses. No guarding. : Clear urine in urine bag from urostomy tube MUSCULOSKELETAL: Atrophy noted to both lower extremities. Left wrist contracture. Bilateral lower extremities with trace pretibial edema. Pedal pulses 2+ bilaterally. NEUROLOGICAL: Alert oriented. Left-sided hemiparesis from previous CVA. A/P Assessment and Plan (1) Altered mental status ICD Codes: R41.82 - Altered mental status, unspecified Status: Acute (2) Hypoxia ICD Codes: R09.02 - Hypoxemia Status: Acute (3) Dehydration ICD Codes: E86.0 - Dehydration Status: Acute (4) Acute on chronic kidney failure ICD Codes: N17.9 - Acute kidney failure, unspecified; N18.9 - Chronic kidney disease, unspecified Status: Acute (5) History of CVA with residual deficit ICD Codes: I69.30 - Unspecified sequelae of cerebral infarction Status: Chronic (6) UTI (urinary tract infection) ICD Codes: N39.0 - Urinary tract infection, site not specified Status: Acute (7) Atrial fibrillation ICD Codes: I48.91 - Unspecified atrial fibrillation Status: Chronic (8) Kidney calculus ICD Codes: N20.0 - Calculus of kidney Status: Acute (9) CAD (coronary artery disease) ICD Codes: I25.10 - CAD (coronary artery disease) Status: Chronic (10) Dyslipidemia ICD Codes: E78.5 - Hyperlipidemia, unspecified Status: Chronic (11) Schizophrenia ICD Codes: F20.9 - Schizophrenia, unspecified Status: Chronic Plan 61-year-old female with history of CVA, kidney stones, UTI. Patient was sent [facility] for hypoxia, altered mental status. Altered mental status, likely multifactorial -secondary to infectious process, dehydration, acute kidney injury. Metabolic encephalopathy on admission now seems like back to baseline -Continue with IV fluids -Monitor neuro status. Better back to the baseline -Within normal ammonia now Recurrent UTI, history of ESBL in the past -Continue with empiric antibiotics and urine culture showing ESBL kelly ID input abx per ID Reported hypoxia Noted with coarse rhonchi on admission, now good air entry -Continue with oxygen at 2 L to keep his sats greater than 92 -xrray report reviewed. -DuoNeb's 4 times a day and when necessary Acute on chronic kidney injury, history of renal stones. Dehydration -Continue with Rebolledo catheter -Avoid nephrotoxic agents -Report of renal ultrasound reviewed showing pyelonephrosis status post urostomy tube right side -Continue with IV fluid -Labs reviewed. Hypernatremia improved - kidney fx improving -Appreciate urology input to follow as outpatient with primary urologist, as per hospital urologist -has MRSa in abcess culture add vanco and pharmacy to dose History of CVA with left-sided hemiparesis -Continue with medical management History of A. fib, currently sinus rhythm. Patient used to be on Xarelto, no longer on anticoagulation due to hematuria. -Continuous cardiac telemetry -Continue beta brayan History Schizophrenia -Continue medical management Home medications have been reviewed, initiated as indicated Heparin 5000 units subcutaneous twice a day for DVT prophylaxis Per review of long-term records, patient has no advance directives. She is to remain a full code Plan of care has been discussed with patient. Further management of the patient will be dependent on the hospital course Israel Huerta MD Apr 14, 2017 13:23
[2017-04-14] MEDS: HEPARIN SODIUM - SQ 10,000 UNITS/ML VIAL SQ SCH ×2 (13:31→23:19)
[2017-04-14] MEDS: ERTAPENEM 1,000 MG/NS 100 ML IV SCH ×2 (21:54)
[2017-04-15] VITALS (8 sets, daily range): BP systolic 99–158; BP diastolic 53–83; PULSE 45–73; RESP 16–21; TEMP 97.6–98.6; O2SAT 94–98
--- NOTE | 2017-04-15 08:58 | HHI.PR ---
Subjective Remarks Patient is more alert and active looking some nausea today and some back pain today She is alert and oriented 3 Has no chest pain no shortness of breath no abdominal pain [place] no nausea vomiting Review of system for 10 point system otherwise unremarkable Objective Objective Results - Vital Signs Date Time Temp Pulse Resp B/P (MAP) Pulse Ox O2 Delivery O2 Flow Rate FiO2 04/15/17 04:00 Nasal Cannula 2.00 04/15/17 04:00 98.6 68 19 108/58 (75) 94 04/15/17 00:00 Nasal Cannula 2.00 04/15/17 00:00 98.2 65 17 99/53 (68) 96 04/14/17 21:06 96 21 04/14/17 20:00 Nasal Cannula 2.00 04/14/17 20:00 97.9 81 20 150/76 (100) 93 04/14/17 19:57 74 04/14/17 17:00 96 04/14/17 16:02 98.2 76 19 158/74 (102) 98 04/14/17 12:06 98.4 77 19 164/75 (104) 97 I/O 04/14/17 04/14/17 04/14/17 04/15/17 04/15/17 04/15/17 07:00 15:00 23:00 07:00 15:00 23:00 Intake Total 2845 ml 480 ml Output Total 1900 ml 2750 ml 2250 ml Balance -1900 ml 95 ml -1770 ml Intake Oral 380 ml 480 ml IV Total 2465 ml Output Urine Total 500 ml 1200 ml 500 ml Drainage Total 1400 ml 1550 ml 1750 ml # Bowel Movements 0 1 Result Diagram: 04/12/17 0708 04/14/17 0611 Imaging Last Impressions Head CT 04/08/172105 Signed Impressions: Service Date/Time: Saturday, April 08, 2017 22:35 - CONCLUSION: 1. Large old right temporoparietal infarct. 2. No evidence of acute intracranial pathology. No masses are identified. Lexa Glass MD Chest X-Ray 04/08/171901 Signed Impressions: Service Date/Time: Saturday, April 08, 2017 19:12 - CONCLUSION: 1. Cardiomegaly. No acute pulmonary disease. Lexa Glass MD Other Results Laboratory Tests Test 04/15/17 06:47 Random Vancomycin Level 26.5 Date/Time Source Procedure Growth Status 04/11/17 14:26 Blood Other Aerobic Blood Culture - Preliminary NO GROWTH IN 3 DAYS Resulted 04/11/17 14:26 Blood Other Anaerobic Blood Culture - Preliminary NO GROWTH IN 3 DAYS Resulted 04/08/17 19:45 Urine Catheterized Urine Urine Culture - Final Escherichia Coli Esbl Positive Escherichia Coli Viridans Streptococcus Grp Complete 04/09/17 17:43 Abscess Other Gram Stain - Final Complete 04/09/17 17:43 Wound Culture - Final Escherichia Coli Proteus Mirabilis Enterococcus Faecalis S. Aureus Mrsa Complete Physical Exam Physical Exam GENERAL: This is a chronically ill appearing female, appears older than stated age. Alert oriented SKIN: No rashes, ecchymoses or lesions. Cool and dry. HEAD: Atraumatic. Normocephalic. No temporal or scalp tenderness. EYES: Pupils equal round and reactive. Extraocular motions intact. No scleral icterus. No injection or drainage. ENT: Oral mucosa moist NECK: Trachea midline. No JVD or lymphadenopathy. Supple, nontender, no meningeal signs. CARDIOVASCULAR: Regular rate and rhythm without murmurs, gallops, or rubs. RESPIRATORY: Coarse breathing. GASTROINTESTINAL: Abdomen soft, non-tender, nondistended. No hepato-splenomegaly , or palpable masses. No guarding. : Clear urine in urine bag from urostomy tube MUSCULOSKELETAL: Atrophy noted to both lower extremities. Left wrist contracture. Bilateral lower extremities with trace pretibial edema. Pedal pulses 2+ bilaterally. NEUROLOGICAL: Alert oriented. Left-sided hemiparesis from previous CVA. A/P Assessment and Plan (1) Altered mental status ICD Codes: R41.82 - Altered mental status, unspecified Status: Acute (2) Hypoxia ICD Codes: R09.02 - Hypoxemia Status: Acute (3) Dehydration ICD Codes: E86.0 - Dehydration Status: Acute (4) Acute on chronic kidney failure ICD Codes: N17.9 - Acute kidney failure, unspecified; N18.9 - Chronic kidney disease, unspecified Status: Acute (5) History of CVA with residual deficit ICD Codes: I69.30 - Unspecified sequelae of cerebral infarction Status: Chronic (6) UTI (urinary tract infection) ICD Codes: N39.0 - Urinary tract infection, site not specified Status: Acute (7) Atrial fibrillation ICD Codes: I48.91 - Unspecified atrial fibrillation Status: Chronic (8) Kidney calculus ICD Codes: N20.0 - Calculus of kidney Status: Acute (9) CAD (coronary artery disease) ICD Codes: I25.10 - CAD (coronary artery disease) Status: Chronic (10) Dyslipidemia ICD Codes: E78.5 - Hyperlipidemia, unspecified Status: Chronic (11) Schizophrenia ICD Codes: F20.9 - Schizophrenia, unspecified Status: Chronic Plan 61-year-old female with history of CVA, kidney stones, UTI. Patient was sent from [facility] for hypoxia, altered mental status. Altered mental status, likely multifactorial -secondary to infectious process, dehydration, acute kidney injury. Metabolic encephalopathy on admission now seems like back to baseline -Continue with IV fluids -Monitor neuro status. Better back to the baseline -Within normal ammonia now Recurrent UTI, history of ESBL in the past -Continue with empiric antibiotics and urine culture showing ESBL kelly ID input , abx per ID Reported hypoxia Noted with coarse rhonchi on admission, now good air entry -Continue with oxygen at 2 L to keep his sats greater than 92 -xrray report reviewed. -DuoNeb's 4 times a day and when necessary Acute on chronic kidney injury, history of renal stones. Dehydration -Continue with Rebolledo catheter -Avoid nephrotoxic agents -Report of renal ultrasound reviewed showing pyelonephrosis status post urostomy tube right side -Continue with IV fluid -Labs reviewed. Hypernatremia improved - kidney fx improving -Appreciate urology input to follow as outpatient with primary urologist, as per hospital urologist -has MRSa in abcess culture add vanco and pharmacy to dose History of CVA with left-sided hemiparesis -Continue with medical management History of A. fib, currently sinus rhythm. Patient used to be on Xarelto, no longer on anticoagulation due to hematuria. -Continuous cardiac telemetry -Continue beta brayan History Schizophrenia -Continue medical management Home medications have been reviewed, initiated as indicated Heparin 5000 units subcutaneous twice a day for DVT prophylaxis Per review of [facility] records, patient has no advance directives. She is to remain a full code Plan of care has been discussed with patient. Further management of the patient will be dependent on the hospital course plan for labs tomorrow Israel Huerta MD Apr 15, 2017 08:58
[2017-04-15] MEDS: LEVOFLOXACIN 500 MG TAB PO SCH (09:06)
[2017-04-15] MEDS: risperiDONE 0.5 MG TAB PO SCH ×3 (09:06→18:39)
[2017-04-15] MEDS: hydrALAZINE HCL 50 MG TAB PO SCH ×3 (09:06→18:39)
[2017-04-15] MEDS: METOPROLOL TARTRATE 25 MG TAB PO SCH ×2 (09:06→22:09)
[2017-04-15] MEDS: PANTOPRAZOLE SOD 20 MG DELAYED RELEASE TAB PO SCH (09:06)
[2017-04-15] MEDS: FERROUS SULFATE 325 MG (65 MG ELEMENTAL IRON) TAB PO SCH ×3 (09:06→18:39)
[2017-04-15] MEDS: SERTRALINE HCL 50 MG TAB PO SCH (09:07)
[2017-04-15] MEDS: ASPIRIN EC 81 MG TABEC PO SCH (09:07)
[2017-04-15] MEDS: ACETAMINOPHEN/HYDROcodone 325 MG/5 MG TAB PO PRN (09:07)
[2017-04-15] MEDS: POTASSIUM CHLORIDE 10 MEQ CAP PO SCH (09:07)
[2017-04-15] MEDS: SODIUM CHLORIDE 0.9% FLUSH 10 ML FLUSH IV FLUSH SCH ×2 (09:08→21:00)
[2017-04-15] MEDS: SODIUM CHLOR 0.45% 1000 ML INJ 1,000 ML IV SCH ×2 (11:02→17:10)
--- NOTE | 2017-04-15 12:29 | HHI.IDPN ---
Subjective Subjective Remarks ID COVERAGE Mrs. Wilson is a 61-year-old white female is a resident from a local skilled nursing , significant past medical history of stroke with left-sided hemiparesis, frequent UTIs and hematuria, renal stones, history of ESBL infection, hypertension, schizophrenia, type 2 diabetes, renal insufficiency. Patient was sent from a local skilled nursing after she was noted cyanotic around the lips and mottling of the hands and fingers with decreased O2 sats. Patient was placed on 2 L and sats improved. She was noted dropping sats to the 80s 90s. EMS was called, she was noted with 100% sats on 2 L. There was no reported fever, no chills. Patient is not able to provide any information, at this time she is lethargic. Patient was evaluated in the emergency room, laboratory workup was completed. CT of the head was unremarkable. Chest x-ray show cardiomegaly but no acute findings. CBC remarkable for leukocytosis of 13.7, hemoglobin 10.1 hematocrit 32.1. BMP remarkable for BUN of 56, creatinine 3.43. The rest of the laboratory workup was unremarkable. Lactic acid was 0.3. Rebolledo catheter was inserted. Urinalysis positive for leukocyte esterase, bacteriuria. Patient was given IV fluid bolus, cultures were obtained and she was started on empiric antibiotics. Facility send medical records, patient does have a history of hematuria and renal stones. She follows up with Dr. Ascencio. Apparently she had a recent renal ultrasound that showed right hydronephrosis and left atrophic kidney. She had a follow-up CT of the abdomen that showed bilateral nonobstructive stones. No intervention was indicated at that time. Patient is now evaluated, she is lethargic, she awakes to voice but falls back asleep. She's noted with diffuse coarse rhonchi. Sats are 97% on 3 L. Sepsis workup positive for ESBL bacteremia and UTI. s.p Nephrostomy tube placement. ID consulted for evaluation and Mment of Sepsis, ESBL bacteremia, ESBL UTI. Notes reviewed Has R PCN C/S from PCN with E coli, Proteus, Enterococcus and MRSA Creatinine is improving Temps ok WBC down to normal No fever No rash No diarrhea Mentation appears to be at baseline. Antibiotics Ertapenem IV Vanco IV Lines Line sites with no e.o infection Past Medical History reviewed Allergies: Coded Allergies: *MDRO Multi-Drug Resistant Organism (Verified Adverse Reaction, Unknown, 05/23/15) 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 ESBL + E. 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 Vital Signs Date Time Temp Pulse Resp B/P (MAP) Pulse Ox O2 Delivery O2 Flow Rate FiO2 04/15/17 08:04 97.6 71 20 158/74 (102) 98 04/15/17 04:00 Nasal Cannula 2.00 04/15/17 04:00 98.6 68 19 108/58 (75) 94 04/15/17 00:00 Nasal Cannula 2.00 04/15/17 00:00 98.2 65 17 99/53 (68) 96 04/14/17 21:06 96 21 04/14/17 20:00 Nasal Cannula 2.00 04/14/17 20:00 97.9 81 20 150/76 (100) 93 04/14/17 19:57 74 04/14/17 17:00 96 04/14/17 16:02 98.2 76 19 158/74 (102) 98 04/15/17 04/15/17 04/16/17 15:00 23:00 07:00 Intake Total 1000 ml Balance 1000 ml IV Total 1000 ml . Laboratory Tests Test 04/14/17 06:11 Blood Urea Nitrogen 27 MG/DL Creatinine 1.77 MG/DL Random Glucose 132 MG/DL Calcium Level 9.2 MG/DL Sodium Level 136 MEQ/L Potassium Level 4.0 MEQ/L Chloride Level 105 MEQ/L Carbon Dioxide Level 20.4 MEQ/L Anion Gap 11 MEQ/L Estimat Glomerular Filtration Rate 29 ML/MIN Imaging Last Impressions Chest X-Ray 04/10/17 0600 Signed Impressions: Service Date/Time: Monday, April 10, 2017 05:58 - CONCLUSION: No acute disease. Vinny Blount MD Renal Ultrasound 04/09/17 0000 Signed Impressions: Service Date/Time: Sunday, April 09, 2017 14:33 - CONCLUSION: 1. Right renal stone with possible pyonephrosis. Lexa Glass MD Nephrostomy 04/09/17 0000 Signed Impressions: Service Date/Time: Sunday, April 09, 2017 17:00 - CONCLUSION: Uncomplicated nephrostomy tube placement as above. Lexa Glass MD Head CT 04/08/172105 Signed Impressions: Service Date/Time: Saturday, April 08, 2017 22:35 - CONCLUSION: 1. Large old right temporoparietal infarct. 2. No evidence of acute intracranial pathology. No masses are identified. Lexa Glass MD Physical Exam GENERAL: Awake and alert, following commands, in no apparent distress. SKIN: No rashes, ecchymoses or lesions. Cool and dry. HEAD: Atraumatic. Normocephalic. No temporal or scalp tenderness. EYES: Pupils equal round and reactive. Extraocular motions intact. No scleral icterus. No injection or drainage. ENT: Nose without bleeding, purulent drainage or septal hematoma. Throat without erythema, tonsillar hypertrophy or exudate. Uvula midline. Airway patent. NECK: Trachea midline. Supple, nontender, no meningeal signs. CARDIOVASCULAR: Regular rate and rhythm RESPIRATORY: Clear to auscultation. Breath sounds equal bilaterally. No wheezes , rales, or rhonchi. GASTROINTESTINAL: Abdomen soft, non-tender, nondistended. No hepato-splenomegaly , or palpable masses. No guarding. MUSCULOSKELETAL: Extremities without clubbing, cyanosis. Mild pedal edema. No joint tenderness. No calf tenderness. . NEUROLOGICAL: Awake and alert. follows commands. Psych cooperative IV line sites with no e.o infection. Rebolledo in place, and has R PCN - urine looks clear Assessment & Plan Remarks ESBL E.coli bacteremia UTI, complicated, C/S E coli, proteus, MRSA and Enterococcus Renal stent with calcification. s/p right nephrostomy this admission ? baseline Dementia Recs Continue Ertapenem IV Continue vanco IV - pharmacy doing dosing Follow repeat blood cultures Repeat UA and C/S Follow cultures Follow clinically. Will need IV antibiotics on discharge. No PICC till cleared by ID. Nicole oMctezuma MD Apr 15, 2017 12:29
[2017-04-15] MEDS: HEPARIN SODIUM - SQ 10,000 UNITS/ML VIAL SQ SCH (14:33)
[2017-04-15 18:10] LABS: BACTERIA, URINE OCC /hpf; BLOOD, URINE MOD (NEG); COMMENT (UR) CULTURE INDICATED; CULTURE IF INDICATED CULTURE INDICATED; GLUCOSE,URINE NEG (NEG); HYALINE CAST, URINE 1 /lpf (RARE); KETONE, URINE NEG (NEG); NITRITE,URINE NEG (NEG); URINE COLOR LIGHT-YELLOW (YELLW/STRAW)
[2017-04-15] MEDS: ERTAPENEM 1,000 MG/NS 100 ML IV SCH ×2 (22:08)
[2017-04-16] VITALS (8 sets, daily range): BP systolic 141–161; BP diastolic 69–78; PULSE 52–73; RESP 18–20; TEMP 97.6–98.6; O2SAT 96–100
[2017-04-16] MEDS: SODIUM CHLOR 0.45% 1000 ML INJ 1,000 ML IV SCH (00:34)
[2017-04-16] MEDS: HEPARIN SODIUM - SQ 10,000 UNITS/ML VIAL SQ SCH ×3 (00:35→22:49)
[2017-04-16 08:10] LABS: MEAN CELL VOLUME 85.9 FL (80.0-100.0); MEAN CORPUSCULAR HEMOGLOBIN 27.9 PG (27.0-34.0); MEAN CORPUSCULAR HGB CONC 32.5 % (32.0-36.0); PLATELET COUNT 224 TH/MM3 (150-450); RED CELL DISTRIBUTION WIDTH 14.2 % (11.6-17.2); REVIEW FLAG FINAL; WHITE BLOOD COUNT 8.3 TH/MM3 (4.0-11.0)
[2017-04-16 08:38] LABS: BICARBONATE 22.2 MEQ/L (21.0-32.0); POTASSIUM 4.4 MEQ/L (3.5-5.1)
[2017-04-16] MEDS: SODIUM CHLORIDE 0.9% FLUSH 10 ML FLUSH IV FLUSH SCH ×2 (09:00→22:46)
[2017-04-16] MEDS: hydrALAZINE HCL 50 MG TAB PO SCH ×3 (09:56→18:01)
[2017-04-16] MEDS: FERROUS SULFATE 325 MG (65 MG ELEMENTAL IRON) TAB PO SCH ×3 (09:56→18:01)
[2017-04-16] MEDS: POTASSIUM CHLORIDE 10 MEQ CAP PO SCH (09:57)
[2017-04-16] MEDS: SERTRALINE HCL 50 MG TAB PO SCH (09:57)
[2017-04-16] MEDS: PANTOPRAZOLE SOD 20 MG DELAYED RELEASE TAB PO SCH (09:57)
[2017-04-16] MEDS: LEVOFLOXACIN 500 MG TAB PO SCH (09:57)
[2017-04-16] MEDS: risperiDONE 0.5 MG TAB PO SCH ×3 (09:57→18:01)
[2017-04-16] MEDS: ASPIRIN EC 81 MG TABEC PO SCH (09:57)
[2017-04-16] MEDS: METOPROLOL TARTRATE 25 MG TAB PO SCH ×2 (09:57→22:45)
--- NOTE | 2017-04-16 10:57 | HHI.PR ---
Subjective Remarks Patient is more alert and active looking some nausea today and some back pain today She is alert and oriented 3 Has no chest pain no shortness of breath no abdominal pain no nausea vomiting Review of system for 10 point system otherwise unremarkable Objective Objective Results - Vital Signs Date Time Temp Pulse Resp B/P (MAP) Pulse Ox O2 Delivery O2 Flow Rate FiO2 04/16/17 08:00 98.0 54 18 158/78 (104) 100 04/16/17 05:19 97.9 70 18 142/69 (93) 96 04/16/17 01:24 97.6 73 18 156/74 (101) 98 04/15/17 21:00 Nasal Cannula 2.00 04/15/17 21:00 70 04/15/17 20:26 98.4 73 16 152/83 (106) 98 04/15/17 16:04 98.2 62 20 158/72 (100) 96 04/15/17 12:04 98.1 58 21 134/63 (86) 98 I/O 04/15/17 04/15/17 04/15/17 04/16/17 04/16/17 04/16/17 07:00 15:00 23:00 07:00 15:00 23:00 Intake Total 480 ml 1000 ml 1608 ml 1100 ml Output Total 2250 ml 1430 ml 1000 ml Balance -1770 ml 1000 ml 178 ml 100 ml Intake Oral 480 ml 600 ml IV Total 1000 ml 1008 ml 1100 ml Output Urine Total 500 ml 150 ml 200 ml Drainage Total 1750 ml 1280 ml 800 ml # Bowel Movements 1 1 Result Diagram: 04/16/1771104/16/17711 Imaging Last Impressions Head CT 04/08/172105 Signed Impressions: Service Date/Time: Saturday, April 08, 2017 22:35 - CONCLUSION: 1. Large old right temporoparietal infarct. 2. No evidence of acute intracranial pathology. No masses are identified. Lexa Glass MD Chest X-Ray 04/08/171901 Signed Impressions: Service Date/Time: Saturday, April 08, 2017 19:12 - CONCLUSION: 1. Cardiomegaly. No acute pulmonary disease. Lexa Glass MD Other Results Laboratory Tests Test 04/15/17 17:15 04/16/17 07:12 Urine Color LIGHT-YELLOW Urine Turbidity HAZY Urine pH 6.0 Urine Specific Randolph 1.010 Urine Protein 30 Urine Glucose (UA) NEG Urine Ketones NEG Urine Occult Blood MOD Urine Nitrite NEG Urine Bilirubin NEG Urine Urobilinogen LESS THAN 2.0 Urine Leukocyte Esterase LARGE Urine RBC 127 Urine WBC 107 Urine WBC Clumps FEW Urine Bacteria OCC Urine Hyaline Casts 1 Microscopic Urinalysis Comment CULTURE INDICATED White Blood Count 8.3 Red Blood Count 3.50 Hemoglobin 9.8 Hematocrit 30.0 Mean Corpuscular Volume 85.9 Mean Corpuscular Hemoglobin 27.9 Mean Corpuscular Hemoglobin Concent 32.5 Red Cell Distribution Width 14.2 Platelet Count 224 Mean Platelet Volume 8.5 Blood Urea Nitrogen 24 Creatinine 1.51 Random Glucose 118 Calcium Level 9.8 Sodium Level 137 Potassium Level 4.4 Chloride Level 107 Carbon Dioxide Level 22.2 Anion Gap 8 Estimat Glomerular Filtration Rate 35 Random Vancomycin Level 20.8 Date/Time Source Procedure Growth Status 04/11/17 14:26 Blood Other Aerobic Blood Culture - Preliminary NO GROWTH IN 4 DAYS Resulted 04/11/17 14:26 Blood Other Anaerobic Blood Culture - Preliminary NO GROWTH IN 4 DAYS Resulted 04/15/17 17:15 Urine Clean Catch Urine Culture Pending Received 04/09/17 17:43 Abscess Other Gram Stain - Final Complete 04/09/17 17:43 Wound Culture - Final Escherichia Coli Proteus Mirabilis Enterococcus Faecalis S. Aureus Mrsa Complete Physical Exam Physical Exam GENERAL: This is a chronically ill appearing female, appears older than stated age. Alert oriented SKIN: No rashes, ecchymoses or lesions. Cool and dry. HEAD: Atraumatic. Normocephalic. No temporal or scalp tenderness. EYES: Pupils equal round and reactive. Extraocular motions intact. No scleral icterus. No injection or drainage. ENT: Oral mucosa moist NECK: Trachea midline. No JVD or lymphadenopathy. Supple, nontender, no meningeal signs. CARDIOVASCULAR: Regular rate and rhythm without murmurs, gallops, or rubs. RESPIRATORY: Coarse breathing. GASTROINTESTINAL: Abdomen soft, non-tender, nondistended. No hepato-splenomegaly , or palpable masses. No guarding. : Clear urine in urine bag from urostomy tube MUSCULOSKELETAL: Atrophy noted to both lower extremities. Left wrist contracture. Bilateral lower extremities with trace pretibial edema. Pedal pulses 2+ bilaterally. NEUROLOGICAL: Alert oriented. Left-sided hemiparesis from previous CVA. A/P Assessment and Plan (1) Altered mental status ICD Codes: R41.82 - Altered mental status, unspecified Status: Acute (2) Hypoxia ICD Codes: R09.02 - Hypoxemia Status: Acute (3) Dehydration ICD Codes: E86.0 - Dehydration Status: Acute (4) Acute on chronic kidney failure ICD Codes: N17.9 - Acute kidney failure, unspecified; N18.9 - Chronic kidney disease, unspecified Status: Acute (5) History of CVA with residual deficit ICD Codes: I69.30 - Unspecified sequelae of cerebral infarction Status: Chronic (6) UTI (urinary tract infection) ICD Codes: N39.0 - Urinary tract infection, site not specified Status: Acute (7) Atrial fibrillation ICD Codes: I48.91 - Unspecified atrial fibrillation Status: Chronic (8) Kidney calculus ICD Codes: N20.0 - Calculus of kidney Status: Acute (9) CAD (coronary artery disease) ICD Codes: I25.10 - CAD (coronary artery disease) Status: Chronic (10) Dyslipidemia ICD Codes: E78.5 - Hyperlipidemia, unspecified Status: Chronic (11) Schizophrenia ICD Codes: F20.9 - Schizophrenia, unspecified Status: Chronic Plan 61-year-old female with history of CVA, kidney stones, UTI. Patient was sent from care home for hypoxia, altered mental status. Altered mental status, likely multifactorial -secondary to infectious process, dehydration, acute kidney injury. Metabolic encephalopathy on admission now seems like back to baseline -Continue with IV fluids -Monitor neuro status. Better back to the baseline -Within normal ammonia now Recurrent UTI, history of ESBL in the past -Continue with empiric antibiotics and urine culture showing ESBL kelly ID input , abx per ID Reported hypoxia Noted with coarse rhonchi on admission, now good air entry -Continue with oxygen at 2 L to keep his sats greater than 92 -xrray report reviewed. -DuoNeb's 4 times a day and when necessary Acute on chronic kidney injury, history of renal stones. Dehydration -Continue with Rebolledo catheter -Avoid nephrotoxic agents -Report of renal ultrasound reviewed showing pyelonephrosis status post urostomy tube right side -Continue with IV fluid -Labs reviewed. Hypernatremia improved - kidney fx improving -Appreciate urology input to follow as outpatient with primary urologist, as per hospital urologist -has MRSa in abcess culture add vanco and pharmacy to dose History of CVA with left-sided hemiparesis -Continue with medical management History of A. fib, currently sinus rhythm. Patient used to be on Xarelto, no longer on anticoagulation due to hematuria. -Continuous cardiac telemetry -Continue beta brayan History Schizophrenia -Continue medical management Anemia stable H&H Home medications have been reviewed, initiated as indicated Heparin 5000 units subcutaneous twice a day for DVT prophylaxis Per review of care home records, patient has no advance directives. She is to remain a full code Plan of care has been discussed with patient. Further management of the patient will be dependent on the hospital course Israel Huerta MD Apr 16, 2017 10:57
--- NOTE | 2017-04-16 14:38 | HHI.IDPN ---
Subjective Subjective Remarks ID COVERAGE Mrs. Wilson is a 61-year-old white female is a resident from a local longterm , significant past medical history of stroke with left-sided hemiparesis, frequent UTIs and hematuria, renal stones, history of ESBL infection, hypertension, schizophrenia, type 2 diabetes, renal insufficiency. Patient was sent from a local longterm after she was noted cyanotic around the lips and mottling of the hands and fingers with decreased O2 sats. Patient was placed on 2 L and sats improved. She was noted dropping sats to the 80s 90s. EMS was called, she was noted with 100% sats on 2 L. There was no reported fever, no chills. Patient is not able to provide any information, at this time she is lethargic. Patient was evaluated in the emergency room, laboratory workup was completed. CT of the head was unremarkable. Chest x-ray show cardiomegaly but no acute findings. CBC remarkable for leukocytosis of 13.7, hemoglobin 10.1 hematocrit 32.1. BMP remarkable for BUN of 56, creatinine 3.43. The rest of the laboratory workup was unremarkable. Lactic acid was 0.3. Rebolledo catheter was inserted. Urinalysis positive for leukocyte esterase, bacteriuria. Patient was given IV fluid bolus, cultures were obtained and she was started on empiric antibiotics. Facility send medical records, patient does have a history of hematuria and renal stones. She follows up with Dr. Ascencio. Apparently she had a recent renal ultrasound that showed right hydronephrosis and left atrophic kidney. She had a follow-up CT of the abdomen that showed bilateral nonobstructive stones. No intervention was indicated at that time. Patient is now evaluated, she is lethargic, she awakes to voice but falls back asleep. She's noted with diffuse coarse rhonchi. Sats are 97% on 3 L. Sepsis workup positive for ESBL bacteremia and UTI. s.p Nephrostomy tube placement. ID consulted for evaluation and Mment of Sepsis, ESBL bacteremia, ESBL UTI. Notes reviewed Repeat UA for PCN still with pyuria Repeat UC negative so far Creatinine better Temps ok Mental status better Has R PCN C/S from PCN with E coli, Proteus, Enterococcus and MRSA WBC down to normal No fever No rash No diarrhea Vanco level - 20 Antibiotics Ertapenem IV Vanco IV Lines Line sites with no e.o infection Past Medical History reviewed Allergies: Coded Allergies: *MDRO Multi-Drug Resistant Organism (Verified Adverse Reaction, Unknown, 05/23/15) 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 ESBL + E. 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 Vital Signs Date Time Temp Pulse Resp B/P (MAP) Pulse Ox O2 Delivery O2 Flow Rate FiO2 04/16/17 08:00 98.0 54 18 158/78 (104) 100 04/16/17 05:19 97.9 70 18 142/69 (93) 96 04/16/17 01:24 97.6 73 18 156/74 (101) 98 04/15/17 21:00 Nasal Cannula 2.00 04/15/17 21:00 70 04/15/17 20:26 98.4 73 16 152/83 (106) 98 04/15/17 16:04 98.2 62 20 158/72 (100) 96 . Laboratory Tests Test 04/16/17 07:12 White Blood Count 8.3 TH/MM3 Red Blood Count 3.50 MIL/MM3 Hemoglobin 9.8 GM/DL Hematocrit 30.0 % Mean Corpuscular Volume 85.9 FL Mean Corpuscular Hemoglobin 27.9 PG Mean Corpuscular Hemoglobin Concent 32.5 % Red Cell Distribution Width 14.2 % Platelet Count 224 TH/MM3 Mean Platelet Volume 8.5 FL Laboratory Tests Test 04/16/17 07:12 Blood Urea Nitrogen 24 MG/DL Creatinine 1.51 MG/DL Random Glucose 118 MG/DL Calcium Level 9.8 MG/DL Sodium Level 137 MEQ/L Potassium Level 4.4 MEQ/L Chloride Level 107 MEQ/L Carbon Dioxide Level 22.2 MEQ/L Anion Gap 8 MEQ/L Estimat Glomerular Filtration Rate 35 ML/MIN Microbiology Date/Time Source Procedure Growth Status 04/15/17 17:15 Urine Clean Catch Urine Culture - Preliminary NO GROWTH IN 24 HOURS. Resulted Imaging Last Impressions Chest X-Ray 04/10/17 0600 Signed Impressions: Service Date/Time: Monday, April 10, 2017 05:58 - CONCLUSION: No acute disease. Vinny Blount MD Renal Ultrasound 04/09/17 0000 Signed Impressions: Service Date/Time: Sunday, April 09, 2017 14:33 - CONCLUSION: 1. Right renal stone with possible pyonephrosis. Lexa Glass MD Nephrostomy 04/09/17 0000 Signed Impressions: Service Date/Time: Sunday, April 09, 2017 17:00 - CONCLUSION: Uncomplicated nephrostomy tube placement as above. Lexa Glass MD Head CT 04/08/17 2106 Signed Impressions: Service Date/Time: Saturday, April 08, 2017 22:35 - CONCLUSION: 1. Large old right temporoparietal infarct. 2. No evidence of acute intracranial pathology. No masses are identified. Lexa Glass MD Physical Exam GENERAL: Awake and alert, following commands, in no apparent distress. SKIN: No rashes, ecchymoses or lesions. Cool and dry. HEAD: Atraumatic. Normocephalic. No temporal or scalp tenderness. EYES: Pupils equal round and reactive. Extraocular motions intact. No scleral icterus. No injection or drainage. ENT: Nose without bleeding, purulent drainage or septal hematoma. Throat without erythema, tonsillar hypertrophy or exudate. Uvula midline. Airway patent. NECK: Trachea midline. Supple, nontender, no meningeal signs. CARDIOVASCULAR: Regular rate and rhythm RESPIRATORY: Clear to auscultation. Breath sounds equal bilaterally. No wheezes , rales, or rhonchi. GASTROINTESTINAL: Abdomen soft, non-tender, nondistended. No hepato-splenomegaly , or palpable masses. No guarding. MUSCULOSKELETAL: Extremities without clubbing, cyanosis. Mild pedal edema. No joint tenderness. No calf tenderness. . NEUROLOGICAL: Awake and alert. follows commands. Psych cooperative IV line sites with no e.o infection. Rebolledo in place, and has R PCN - urine looks clear Assessment & Plan Remarks ESBL E.coli bacteremia UTI, complicated, C/S E coli, proteus, MRSA and Enterococcus Renal stent with calcification. s/p right nephrostomy this admission ? baseline Dementia Recs Continue Ertapenem IV Continue vanco IV - pharmacy doing dosing Follow repeat blood cultures - if negative should be ok to place PICC Follow cultures Monitor progress Will need IV antibiotics on discharge. Nicole Moctezuma MD Apr 16, 2017 14:38
[2017-04-16] MEDS: ERTAPENEM 1,000 MG/NS 100 ML IV SCH ×2 (23:59)
[2017-04-17] VITALS (8 sets, daily range): BP systolic 120–146; BP diastolic 61–71; PULSE 54–68; RESP 16–18; TEMP 96.3–98.7; O2SAT 96–99
[2017-04-17] MEDS: SODIUM CHLOR 0.45% 1000 ML INJ 1,000 ML IV SCH ×2 (06:11→12:48)
[2017-04-17] MEDS: SODIUM CHLORIDE 0.9% FLUSH 10 ML FLUSH IV FLUSH SCH (07:38)
[2017-04-17] MEDS: LEVOFLOXACIN 500 MG TAB PO SCH (09:19)
[2017-04-17] MEDS: FERROUS SULFATE 325 MG (65 MG ELEMENTAL IRON) TAB PO SCH ×3 (09:19→17:19)
[2017-04-17] MEDS: risperiDONE 0.5 MG TAB PO SCH ×3 (09:19→17:19)
[2017-04-17] MEDS: ASPIRIN EC 81 MG TABEC PO SCH (09:19)
[2017-04-17] MEDS: PANTOPRAZOLE SOD 20 MG DELAYED RELEASE TAB PO SCH (09:19)
[2017-04-17] MEDS: hydrALAZINE HCL 50 MG TAB PO SCH ×3 (09:19→17:19)
[2017-04-17] MEDS: METOPROLOL TARTRATE 25 MG TAB PO SCH (09:19)
[2017-04-17] MEDS: SERTRALINE HCL 50 MG TAB PO SCH (09:19)
[2017-04-17] MEDS: POTASSIUM CHLORIDE 10 MEQ CAP PO SCH (09:19)
--- NOTE | 2017-04-17 10:48 | HHI.FF ---
Infusion Therapy Location of Infusion Therapy: [facility] Infusion Therapy Order Patient Information Patient Weight 87.8 kg Diagnosis: Diagnosis E coli sepsis Coded Allergies: *MDRO Multi-Drug Resistant Organism (Verified Adverse Reaction, Unknown, 05/23/15) 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 ESBL + E. 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 Administer Medication Ertapenem 1 gram IV q 24 hours Stop Treatment: Apr 25, 2017 Administer Medication Levaquin 500 mg po daily Start Treatment: Apr 25, 2017 Stop Treatment: May 02, 2017 Additional Information Venous access: Other (Midline) Additional Instructions [x] Peripheral flush and dressing changes per protocol [x] Implanted port and central interline clerk: * Implanted port: 10 ml Normal Saline followed by 5 ml Heparin 100 units/ml Heparin flush after each use and monthly to maintain. [] May leave port accessed during therapy. [] May leave peripheral site accessed for duration of therapy. [x] If patient has SOB or respiratory distress, check oxygen saturation. If less than 90% or clinical signs of respiratory distress, administer oxygen at 2 L/min. via nasal cannula and notify physician. [x] Anaphylaxis/Reaction orders: * Stop infusion. * Keep IV line open with saline flush. * Notify physician. * Monitor vital signs every 15 minutes until symptoms resolve. * Check Oxygen saturation; Oxygen at 2 L/min. via nasal cannula if less than 90% or clinical signs of respiratory distress. * Administer diphenhydramine (Benadryl) 25 mg IV STAT, (unless patient has received as pre-med). May repeat once, if necessary. * Solu-Cortef 250 mg IVP over 30-60 seconds, use 100 mg vials for each dissolution. * Epinephrine (1mg/1 ml) 0.3 mg subcutaneously or IVP now with any signs of respiratory distress. * Check with physician for new additional pre-med orders if patient is re- challenged or re-treated. [x] May remove PICC line when treatment complete, after confirming with Physician. [x] If the patient is admitted to the hospital, the ED, or transferred via [facility] , complete transfer form including medication reconciliation order sheet. Laboratory Tests Weekly Labs: CBC w/diff, Creatinine (On Tuesdays while on IV Abx) Nicole Moctezuma MD Apr 17, 2017 10:48
[2017-04-17] MEDS ORDERED: VANCOMYCIN INJ 1,500 MG in SODIUM CHLORID 0.9% 500 ML INJ 500 ML IV ONE (11:00)
--- NOTE | 2017-04-17 12:07 | HHI.PR ---
Subjective Remarks Patient is more alert and active looking Offering no complaint She is alert and oriented 3 Has no chest pain no shortness of breath no abdominal pain no nausea vomiting Review of system for 10 point system otherwise unremarkable Objective Objective Results - Vital Signs Date Time Temp Pulse Resp B/P (MAP) Pulse Ox O2 Delivery O2 Flow Rate FiO2 04/17/17 10:58 99 Nasal Cannula 2.00 04/17/17 08:00 96.3 59 18 122/65 (84) 99 04/17/17 06:48 66 04/17/17 04:00 97.8 68 16 146/64 (91) 96 04/17/17 00:00 98.6 66 16 120/61 (80) 97 04/16/17 20:00 98.6 71 18 141/72 (95) 99 04/16/17 19:34 98.6 71 18 141/72 (95) 99 04/16/17 19:28 Nasal Cannula 2.00 04/16/17 16:02 97.8 56 20 154/76 (102) 98 04/16/17 16:00 98.0 62 18 151/70 (97) 98 I/O 04/16/17 04/16/17 04/16/17 04/17/17 04/17/17 04/17/17 06:59 14:59 22:59 06:59 14:59 22:59 Intake Total 1100 ml 480 ml 1100 ml Output Total 1450 ml 3100 ml 1560 ml Balance -350 ml -2620 ml -460 ml Intake Oral 480 ml IV Total 1100 ml 1100 ml Output Urine Total 300 ml 1625 ml 500 ml Drainage Total 1150 ml 1475 ml 1060 ml # Bowel Movements 0 Result Diagram: 04/16/1712 04/16/17711 Imaging Last Impressions Head CT 04/08/172105 Signed Impressions: Service Date/Time: Saturday, April 08, 2017 22:35 - CONCLUSION: 1. Large old right temporoparietal infarct. 2. No evidence of acute intracranial pathology. No masses are identified. Lexa Glass MD Chest X-Ray 04/08/171901 Signed Impressions: Service Date/Time: Saturday, April 08, 2017 19:12 - CONCLUSION: 1. Cardiomegaly. No acute pulmonary disease. Lexa Glass MD Other Results Laboratory Tests Test 04/17/17 06:01 Random Vancomycin Level 14.6 Date/Time Source Procedure Growth Status 04/11/17 14:26 Blood Other Aerobic Blood Culture - Final NO GROWTH IN 5 DAYS Complete 04/11/17 14:26 Blood Other Anaerobic Blood Culture - Final NO GROWTH IN 5 DAYS Complete 04/15/17 17:15 Urine Clean Catch Urine Culture - Final NO GROWTH IN 48 HOURS. Complete 04/09/17 17:43 Abscess Other Gram Stain - Final Complete 04/09/17 17:43 Wound Culture - Final Escherichia Coli Proteus Mirabilis Enterococcus Faecalis S. Aureus Mrsa Complete Physical Exam Physical Exam GENERAL: This is a chronically ill appearing female, appears older than stated age. Alert oriented SKIN: No rashes, ecchymoses or lesions. Cool and dry. HEAD: Atraumatic. Normocephalic. No temporal or scalp tenderness. EYES: Pupils equal round and reactive. Extraocular motions intact. No scleral icterus. No injection or drainage. ENT: Oral mucosa moist NECK: Trachea midline. No JVD or lymphadenopathy. Supple, nontender, no meningeal signs. CARDIOVASCULAR: Regular rate and rhythm without murmurs, gallops, or rubs. RESPIRATORY: Coarse breathing. GASTROINTESTINAL: Abdomen soft, non-tender, nondistended. No hepato-splenomegaly , or palpable masses. No guarding. : Clear urine in urine bag from urostomy tube MUSCULOSKELETAL: Atrophy noted to both lower extremities. Left wrist contracture. Bilateral lower extremities with trace pretibial edema. Pedal pulses 2+ bilaterally. NEUROLOGICAL: Alert oriented. Left-sided hemiparesis from previous CVA. A/P Assessment and Plan (1) Altered mental status ICD Codes: R41.82 - Altered mental status, unspecified Status: Acute (2) Hypoxia ICD Codes: R09.02 - Hypoxemia Status: Acute (3) Dehydration ICD Codes: E86.0 - Dehydration Status: Acute (4) Acute on chronic kidney failure ICD Codes: N17.9 - Acute kidney failure, unspecified; N18.9 - Chronic kidney disease, unspecified Status: Acute (5) History of CVA with residual deficit ICD Codes: I69.30 - Unspecified sequelae of cerebral infarction Status: Chronic (6) UTI (urinary tract infection) ICD Codes: N39.0 - Urinary tract infection, site not specified Status: Acute (7) Atrial fibrillation ICD Codes: I48.91 - Unspecified atrial fibrillation Status: Chronic (8) Kidney calculus ICD Codes: N20.0 - Calculus of kidney Status: Acute (9) CAD (coronary artery disease) ICD Codes: I25.10 - CAD (coronary artery disease) Status: Chronic (10) Dyslipidemia ICD Codes: E78.5 - Hyperlipidemia, unspecified Status: Chronic (11) Schizophrenia ICD Codes: F20.9 - Schizophrenia, unspecified Status: Chronic Plan 61-year-old female with history of CVA, kidney stones, UTI. Patient was sent from group home for hypoxia, altered mental status. Altered mental status, likely multifactorial -secondary to infectious process, dehydration, acute kidney injury. Metabolic encephalopathy on admission now seems like back to baseline -IV fluids -Monitor neuro status. Better back to the baseline -Within normal ammonia now Recurrent UTI, history of ESBL in the past -Continue with antibiotics and urine culture showing ESBL kelly ID input ,abx per ID . Discussed with ID on the floor Reported hypoxia now good air entry -On oxygen at 2 L to keep his sats greater than 99% -xrray report reviewed. -DuoNeb's 4 times a day and when necessary basis Acute on chronic kidney injury, history of renal stones. Dehydration -Continue with Rebolledo catheter -Avoid nephrotoxic agents -Report of renal ultrasound reviewed showing pyelonephrosis status post urostomy tube right side -Continue with IV fluid -Labs reviewed. Hypernatremia improved - kidney fx improving significantly better -Appreciate urology input to follow as outpatient with primary urologist, as per hospital urologist -has MRSa in abcess culture add vanco and pharmacy to dose History of CVA with left-sided hemiparesis -Continue with medical management History of A. fib, currently sinus rhythm. Patient used to be on Xarelto, no longer on anticoagulation due to hematuria. -Continuous cardiac telemetry -Continue beta brayan History Schizophrenia -Continue medical management Anemia stable H&H Home medications have been reviewed, initiated as indicated On Heparin 5000 units subcutaneous twice a day for DVT prophylaxis Per review of group home records, patient has no advance directives. She is to remain a full code Plan of care has been discussed with explained to patient. Discussed with RN no acute event or issues. Discussed with infectious disease Plan to discharge her back to her facility Discussed with disease case manager about DC planning Israel Huerta MD Apr 17, 2017 12:07
[2017-04-17] MEDS: HEPARIN SODIUM - SQ 10,000 UNITS/ML VIAL SQ SCH (12:08)
[2017-04-17] MEDS ORDERED: LORA-373 PO (12:11)
[2017-04-17] MEDS ORDERED: HYDR-3583 PO (12:11)
[2017-04-17] MEDS ORDERED: LEVA500T20 PO (12:11)
[2017-04-17] MEDS ORDERED: ZYVO600T PO (12:13)
--- NOTE | 2017-04-17 12:56 | HHI.IDPN ---
Subjective Subjective Remarks ID COVERAGE Mrs. Wilson is a 61-year-old white female is a [facility] a local [facility] , significant past medical history of stroke with left-sided hemiparesis, frequent UTIs and hematuria, renal stones, history of ESBL infection, hypertension, schizophrenia, type 2 diabetes, renal insufficiency. Patient was sent from a local [facility] after she was noted cyanotic around the lips and mottling of the hands and fingers with decreased O2 sats. Patient was placed on 2 L and sats improved. She was noted dropping sats to the 80s 90s. EMS was called, she was noted with 100% sats on 2 L. There was no reported fever, no chills. Patient is not able to provide any information, at this time she is lethargic. Patient was evaluated in the emergency room, laboratory workup was completed. CT of the head was unremarkable. Chest x-ray show cardiomegaly but no acute findings. CBC remarkable for leukocytosis of 13.7, hemoglobin 10.1 hematocrit 32.1. BMP remarkable for BUN of 56, creatinine 3.43. The rest of the laboratory workup was unremarkable. Lactic acid was 0.3. Rebolledo catheter was inserted. Urinalysis positive for leukocyte esterase, bacteriuria. Patient was given IV fluid bolus, cultures were obtained and she was started on empiric antibiotics. Facility send medical records, patient does have a history of hematuria and renal stones. She follows up with Dr. Ascencio. Apparently she had a recent renal ultrasound that showed right hydronephrosis and left atrophic kidney. She had a follow-up CT of the abdomen that showed bilateral nonobstructive stones. No intervention was indicated at that time. Patient is now evaluated, she is lethargic, she awakes to voice but falls back asleep. She's noted with diffuse coarse rhonchi. Sats are 97% on 3 L. Sepsis workup positive for ESBL bacteremia and UTI. s.p Nephrostomy tube placement. ID consulted for evaluation and Mment of Sepsis, ESBL bacteremia, ESBL UTI. Notes reviewed D/W Dr Huerta No fever NO complaints Repeat UA for PCN still with pyuria, but UC negative NO new (+) BC One BC withh E coli (not ESBL+) First UC with E coli ESBL, E coli, Viridans Strep R PCN UC with E coli, Proteus, MRSA, Enterococcus Repeat UC negative so far Creatinine better WBC down to normal No fever No rash No diarrhea Antibiotics Ertapenem IV Vanco IV Lines Line sites with no e.o infection Past Medical History reviewed Allergies: Coded Allergies: *MDRO Multi-Drug Resistant Organism (Verified Adverse Reaction, Unknown, 05/23/15) 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 ESBL + E. 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 Vital Signs Date Time Temp Pulse Resp B/P (MAP) Pulse Ox O2 Delivery O2 Flow Rate FiO2 04/17/17 10:58 99 Nasal Cannula 2.00 04/17/17 08:00 96.3 59 18 122/65 (84) 99 04/17/17 06:48 66 04/17/17 04:00 97.8 68 16 146/64 (91) 96 04/17/17 00:00 98.6 66 16 120/61 (80) 97 04/16/17 20:00 98.6 71 18 141/72 (95) 99 04/16/17 19:34 98.6 71 18 141/72 (95) 99 04/16/17 19:28 Nasal Cannula 2.00 04/16/17 16:02 97.8 56 20 154/76 (102) 98 04/16/17 16:00 98.0 62 18 151/70 (97) 98 . Laboratory Tests Test 04/16/17 07:12 White Blood Count 8.3 TH/MM3 Red Blood Count 3.50 MIL/MM3 Hemoglobin 9.8 GM/DL Hematocrit 30.0 % Mean Corpuscular Volume 85.9 FL Mean Corpuscular Hemoglobin 27.9 PG Mean Corpuscular Hemoglobin Concent 32.5 % Red Cell Distribution Width 14.2 % Platelet Count 224 TH/MM3 Mean Platelet Volume 8.5 FL Laboratory Tests Test 04/16/17 07:12 Blood Urea Nitrogen 24 MG/DL Creatinine 1.51 MG/DL Random Glucose 118 MG/DL Calcium Level 9.8 MG/DL Sodium Level 137 MEQ/L Potassium Level 4.4 MEQ/L Chloride Level 107 MEQ/L Carbon Dioxide Level 22.2 MEQ/L Anion Gap 8 MEQ/L Estimat Glomerular Filtration Rate 35 ML/MIN Microbiology Date/Time Source Procedure Growth Status 04/15/17 17:15 Urine Clean Catch Urine Culture - Final NO GROWTH IN 48 HOURS. Complete Imaging Last Impressions Chest X-Ray 04/10/17 0600 Signed Impressions: Service Date/Time: Monday, April 10, 2017 05:58 - CONCLUSION: No acute disease. Vinny Blount MD Renal Ultrasound 04/09/17 0000 Signed Impressions: Service Date/Time: Sunday, April 09, 2017 14:33 - CONCLUSION: 1. Right renal stone with possible pyonephrosis. Lexa Glass MD Nephrostomy 04/09/17 0000 Signed Impressions: Service Date/Time: Sunday, April 09, 2017 17:00 - CONCLUSION: Uncomplicated nephrostomy tube placement as above. Lexa Glass MD Head CT 04/08/17 2106 Signed Impressions: Service Date/Time: Saturday, April 08, 2017 22:35 - CONCLUSION: 1. Large old right temporoparietal infarct. 2. No evidence of acute intracranial pathology. No masses are identified. Lexa Glass MD Physical Exam GENERAL: Awake and alert, following commands, in no apparent distress. SKIN: No rashes, ecchymoses or lesions. Cool and dry. HEAD: Atraumatic. Normocephalic. No temporal or scalp tenderness. EYES: Pupils equal round and reactive. Extraocular motions intact. No scleral icterus. No injection or drainage. ENT: Nose without bleeding, purulent drainage or septal hematoma. Throat without erythema, tonsillar hypertrophy or exudate. Uvula midline. Airway patent. NECK: Trachea midline. Supple, nontender, no meningeal signs. CARDIOVASCULAR: Regular rate and rhythm RESPIRATORY: Clear to auscultation. Breath sounds equal bilaterally. No wheezes , rales, or rhonchi. GASTROINTESTINAL: Abdomen soft, non-tender, nondistended. No hepato-splenomegaly , or palpable masses. No guarding. MUSCULOSKELETAL: Extremities without clubbing, cyanosis. Mild pedal edema. No joint tenderness. No calf tenderness. . NEUROLOGICAL: Awake and alert. follows commands. Psych cooperative IV line sites with no e.o infection. Rebolledo in place, and has R PCN - urine looks clear Assessment & Plan Remarks ESBL E.coli bacteremia UTI, complicated, C/S E coli, proteus, MRSA and Enterococcus Renal stent with calcification. s/p right nephrostomy this admission ? baseline Dementia Recs Continue Ertapenem IV - give 14 days then po levaquin Zyvox on D/C Midline Abx form filled out OK for D/C Urology follow-up to decide on removal of stent - per here will need lithotripsy D/W Nicole Lorenz MD Apr 17, 2017 12:56
[2017-04-17] MEDS: ERTAPENEM 1,000 MG/NS 100 ML IV SCH ×2 (15:42)
== END 2017-04-17 18:17 | DRG 71 ==
LOC: NEPC 17:59 → NEDA 21:33 → N04B 04-09 01:42
PROVIDERS: ADMIT Specialist; ATTEND Specialist
PROC: 0T9B70Z Drainage of Bladder with Drainage Device, Via Natural or Artificial Opening (ICD-10-PCS; 2017-04-08)
PROC: 0T9030Z Drainage of Right Kidney with Drainage Device, Percutaneous Approach (ICD-10-PCS; principal; 2017-04-09)
DX: G93.41 Metabolic encephalopathy (principal); N17.9 Acute kidney failure, unspecified; E87.0 Hyperosmolality and hypernatremia; E11.22 Type 2 diabetes mellitus with diabetic chronic kidney disease; F03.90 Unspecified dementia, unspecified severity, without behavioral disturbance, psychotic disturbance, mood disturbance, and anxiety; I69.354 Hemiplegia and hemiparesis following cerebral infarction affecting left non-dominant side; N13.6 Pyonephrosis; I48.91 Unspecified atrial fibrillation; I12.9 Hypertensive chronic kidney disease with stage 1 through stage 4 chronic kidney disease, or unspecified chronic kidney disease; E86.0 Dehydration; R13.10 Dysphagia, unspecified; N18.9 Chronic kidney disease, unspecified; Z86.14 Personal history of Methicillin resistant Staphylococcus aureus infection; I25.10 Atherosclerotic heart disease of native coronary artery without angina pectoris; Z95.5 Presence of coronary angioplasty implant and graft; Z87.442 Personal history of urinary calculi; Z87.440 Personal history of urinary (tract) infections; F20.9 Schizophrenia, unspecified; F31.9 Bipolar disorder, unspecified; M19.90 Unspecified osteoarthritis, unspecified site; R74.8 Abnormal levels of other serum enzymes; N20.0 Calculus of kidney; E78.5 Hyperlipidemia, unspecified; R09.02 Hypoxemia; F41.9 Anxiety disorder, unspecified; I65.29 Occlusion and stenosis of unspecified carotid artery; B96.20 Unspecified Escherichia coli [E. coli] as the cause of diseases classified elsewhere; Z16.12 Extended spectrum beta lactamase (ESBL) resistance; D64.9 Anemia, unspecified
CPT/HCPCS: 36569; 50432; 70450; 71010; 76775; 76937; 80048; 80053; 80202; 81001; 82140; 83605; 83735; 85025; 85027; 86403; 87040; 87070; 87077; 87086; 87147; 87186; 87205; 93005; 94640; 94664; 96360; 99152; 99153; C1729; C1769; J0456; J0692; J0696; J1335; J1644; J2250; J2405; J3010; J3370; J7040; J7050; Q9967

== ENCOUNTER 2017-06-05 05:40 | Inpatient (IN) | payer MEDICARE, OTHER ==
[2017-06-05] VITALS (9 sets, daily range): BP systolic 108–166; BP diastolic 52–84; PULSE 68–98; RESP 12–20; TEMP 98.8–99.3; O2SAT 92–100
[~2017-06-05] VITALS: Ht 177.8 cm; Wt 88.0 kg
[~2017-06-05 05:40] MED LIST changes: -AMLO10 PO; +AMLO10TA2 PO; +ASPI81TA23 PO; -ASPI81TA45 PO; -CITA-48 PO; -COLL30OI3 TOP; -DOCU1CAP39 PO; -ERTA1P IVPB; +FERR325T18 PO; +GABA100C4 PO; +HYDR-3583 PO; +HYDR-3801 PO; -HYDRA50 PO; -LANSO30 PO; +LEVA500T33 PO; +LORA0.5T PO; -METO25 PO; +METO25TA3 PO; -NOVOINJ SQ; -NYSTT TOP; +OMEP20TA93 PO; +POTA10CA PO; -POTA10IN2 PO; +RISP0.5T2 PO; +SENN8.6T36 PO; +SERT-132 PO; +SPIR25TA PO; +THERM PO; -VITA500C PO; +ZYVO600T PO; +[UNRECOGNIZED DRUG - CODE] PO; -[UNRECOGNIZED DRUG - CODE] PO; -[UNRECOGNIZED DRUG - CODE] PO
[2017-06-05] MEDS ORDERED: NALOXONE HCL 0.4 MG/ML AMP IV PUSH ONE (06:15)
[2017-06-05] MEDS: RESP: ALBUTEROL 2.5 MG/IPRATROPIUM 0.5 MG NEB (SCH) INH (06:21)
[2017-06-05 06:23] LABS: AUTOMATED NEUTROPHIL # 11.9 TH/MM3 (1.8-7.7); BASOPHIL # 0.1 TH/MM3 (0-0.2); BASOPHIL % 0.5 % (0.0-2.0); EOSINOPHIL # 0.5 TH/MM3 (0-0.4); EOSINOPHIL % 3.2 % (0.0-4.0); HEMATOCRIT 31.6 % (35.0-46.0); HEMO FLAGS DIFF FINAL; LYMPH % 14.8 % (9.0-44.0); LYMPHOCYTE # 2.3 TH/MM3 (1.0-4.8); MEAN CELL VOLUME 85.8 FL (80.0-100.0); MEAN CORPUSCULAR HGB CONC 31.4 % (32.0-36.0); MONO % 4.7 % (0.0-8.0); NEUT % 76.8 % (16.0-70.0); PLATELET COUNT 246 TH/MM3 (150-450); RED BLOOD COUNT 3.69 MIL/MM3 (4.00-5.30); RED CELL DISTRIBUTION WIDTH 15.4 % (11.6-17.2); WHITE BLOOD COUNT 15.4 TH/MM3 (4.0-11.0)
--- NOTE | 2017-06-05 06:25 | RADRPT ---
EXAM DATE/TIME: 06/05/2017 06:04 [facility] COMPARISON: CHEST SINGLE AP, April 10, 2017, 5:58. INDICATIONS : Shortness of breath. MEDICAL HISTORY : Hypertension. Cardiovascular disease. SURGICAL HISTORY : Coronary artery stent. ENCOUNTER: Initial ACUITY: 1 day PAIN SCORE: Non-responsive. LOCATION: Bilateral chest FINDINGS: A single view of the chest demonstrates the lungs to be symmetrically aerated without evidence of mas s, infiltrate or effusion. The cardiomediastinal contours are unremarkable. Osseous structures are intact. CONCLUSION: No acute disease. Rosales Jay MD on June 05, 2017 at 6:23 Board Certified Radiologist. This report was verified electronically.
[2017-06-05] MEDS ORDERED: LOPE2TAB21 PO (06:29)
[2017-06-05] MEDS ORDERED: ALUMSUS3 PO (06:29)
[2017-06-05] MEDS ORDERED: BISA10SU3 RECTAL (06:29)
[2017-06-05] MEDS ORDERED: TYLE325T PO (06:29)
[2017-06-05 06:34] LABS: BACTERIA, URINE MOD /hpf; BLOOD, URINE MOD (NEG); GLUCOSE,URINE NEG (NEG); KETONE, URINE NEG (NEG); MUCUS URINE FEW /lpf (OCC); NITRITE,URINE POS (NEG); SQUAMOUS EPITHELIAL CELL URINE 1 /hpf (0-5); URINE COLOR YELLOW (YELLW/STRAW)
[2017-06-05 06:35] LABS: COMMENT (UR) CATH-CULTURE IND; CULTURE IF INDICATED CATH CULTURE IND
[2017-06-05 06:39] LABS: ANION GAP 8 MEQ/L (5-15); AST (GOT) 10 U/L (15-37); BLOOD UREA NITROGEN 34 MG/DL (7-18); CHLORIDE 103 MEQ/L (98-107); GLOMERULAR FILTRATION RATE 23 ML/MIN (>89); POTASSIUM 5.4 MEQ/L (3.5-5.1); SODIUM (NA) 136 MEQ/L (136-145)
[2017-06-05 06:40] LABS: ALT (GPT) 11 U/L (10-53)
[2017-06-05 06:42] LABS: ALKALINE PHOSPHATASE 91 U/L (45-117); TOTAL BILIRUBIN ADULT 0.3 MG/DL (0.2-1.0)
[2017-06-05] MEDS ORDERED: SODIUM CHLOR 0.9% 1000 ML INJ 1,000 ML IV ONE (06:45)
[2017-06-05] MEDS ORDERED: cefTRIAXone INJ 1,000 MG in SODIUM CHLORIDE 0.9% INJ 100 ML IV ONE (06:45)
--- NOTE | 2017-06-05 06:49 | PD ---
HPI Chief Complaint: Complaint Time Seen by Provider: 05:54 Travel History International Travel<30 days: No Contact w/Intl Traveler<30days: No Traveled to known affect area: No History of Present Illness HPI 61-year-old female with history of left hemiparesis from a stroke and some the prison after dislodging her left nephrostomy tube. Patient has the tube put in for a large ureteral calculus. She also has a indwelling Rebolledo catheter. As per the paramedics patient was awake en route. However after coming to the ER at the registration patient suddenly became unresponsive. She did maintain her airway breathing spontaneously. Her oxygenation dropped to high 80s and she was started on nasal cannula. When she was awake en route she was alert, aao 3 and talking. No history of any pain as per the paramedics. However when I saw the patient she was somnolent enough where she was unable to answer any questions. PFSH Past Medical History Narrative Medical List of her past medical, surgical, social and family history is reviewed from the nursing note. Anemia: Yes Arthritis: Yes Asthma: No Atrial Fibrillation: Yes Blood Disorders: No Bipolar Disorder: Yes Anxiety: Yes Depression: Yes Heart Rhythm Problems: Yes (TACHYCARDIA ) Cancer: No Cardiac Catheterization: Yes (2007) Cardiovascular Problems: Yes High Cholesterol: No Chemotherapy: No Chest Pain: No Congestive Heart Failure: No COPD: No Cerebrovascular Accident: Yes Coronary Artery Disease: Yes Diabetes: Yes Patient Takes Glucophage: No Diminished Hearing: No GERD: No Glaucoma: No Genitourinary: Yes (HYDRONEPHROSIS, KIDNEY CALCULUS ) Headaches: Yes (unknown) Hepatitis: No Hiatal Hernia: No Hypertension: Yes (unknown) Kidney Stones: No Musculoskeletal: Yes Neurologic: Yes Psychiatric: Yes Immunizations Current: No Migraines: No Myocardial Infarction: No Radiation Therapy: No Renal Failure: No Schizophrenia: Yes Seizures: No Sickle Cell Disease: No Sleep Apnea: No Thyroid Disease: No Ulcer: No PNEUMOCCOCAL Vaccine (Year): 1 Menopausal: Yes : 1 Para: 1 Past Surgical History Abdominal Surgery: Yes (HYSTERECTOMY) AICD: No Appendectomy: No Arteriovenous Shunt: No Body Medical Devices: CARDIAC STENT Section: Yes Cholecystectomy: No Coronary Stent: Yes Endocrine Surgery: No Gynecologic Surgery: Yes (HYSTRECTOMY ) Hysterectomy: Yes (1988) Insulin Pump: No Joint Replacement: No Neurologic Surgery: Yes (UNKNOWN) Oral Surgery: Yes (EXTRACTION) Pacemaker: No Tonsillectomy: Yes Other Surgery: Yes Social History Alcohol Use: No Tobacco Use: No Substance Use: No Allergies-Medications (Allergen,Severity, Reaction): Coded Allergies: *MDRO Multi-Drug Resistant Organism (Verified Adverse Reaction, Unknown, 06/05/17) 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 ESBL + E. 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 Comments List of her allergies reviewed from the nursing note. Reported Meds & Prescriptions Reported Meds & Active Scripts Active Reported Bisacodyl Supp (Bisacodyl) 10 Mg Supp 10 Mg RECTAL DAILY PRN Gabapentin 100 Mg Cap 100 Mg PO DAILY Ferrous Sulfate 325 Mg (65 Mg Iron) Tablet 325 Mg PO TIDPC Aspirin EC (Aspirin) 81 Mg Tabdr 81 Mg PO DAILY Amlodipine (Amlodipine Besylate) 10 Mg Tab 10 Mg PO DAILY Glytrol (Nut.tx.gluc.intoler,Lac-Fr,Soy) 1,000 Ml Liquid 60 Ml PO TID Levemir Inj (Insulin Detemir) 1,000 unit/ 10 ML Vial 7 Units SQ HS Do not mix with any other Insulin. Thera M Plus (Multivitamins/Minerals Therapeutic) 1 Tab 1 Tab PO DAILY Sertraline (Sertraline HCl) 50 Mg Tab 50 Mg PO DAILY Senna-Tabs (Sennosides) 8.6 Mg Tab 8.6 Mg PO BID Risperidone 0.5 Mg Tab 0.5 Mg PO TID Omeprazole 20 Mg Tab 20 Mg PO DAILY Metoprolol Tartrate 25 Mg Tab 25 Mg PO BID Hydralazine (Hydralazine HCl) 100 Mg Tab 50 Mg PO TID Take with meals Narrative Medication List of her home medications reviewed from the nursing note. Review of Systems ROS Limitations: Altered Mental Status Except as stated in HPI: all other systems reviewed are Neg Physical Exam Narrative GENERAL: Obese, bedbound, unresponsive SKIN: Focused skin assessment warm/dry. Pale HEAD: Atraumatic. Normocephalic. EYES: Pupils equal and round. No scleral icterus. No injection or drainage. ENT: No nasal bleeding or discharge. Mucous membranes pink and moist. NECK: Trachea midline. No JVD. CARDIOVASCULAR: Regular rate and rhythm. No murmur appreciated. RESPIRATORY: No accessory muscle use. Clear to auscultation. Breath sounds equal bilaterally. GASTROINTESTINAL: Abdomen soft, non-tender, nondistended. Hepatic and splenic margins not palpable. MUSCULOSKELETAL: No obvious deformities. No clubbing. No cyanosis. No edema. NEUROLOGICAL: GCS of 10 PSYCHIATRIC: Unable to assess Data Data Last Documented VS Orders Orders Sepsis Workup Initiated (06/05/17 ) Complete Blood Count With Diff (06/05/17 05:54) Comprehensive Metabolic Panel (06/05/17 05:54) Lactic Acid Sepsis Protocol (06/05/17 05:54) Urinalysis - C+S If Indicated (06/05/17 05:54) Blood Culture (06/05/17 05:54) Chest, Single Ap (06/05/17 05:54) Blood Glucose (06/05/17 05:54) Ecg Monitoring (06/05/17 05:54) Iv Access Insert/Monitor (06/05/17 05:54) Oximetry (06/05/17 05:54) Oxygen Administration (06/05/17 05:54) Ct Abd/Pel W/O Iv Contrast (06/05/17 ) Type And Screen (06/05/17 05:54) Ct Brain W/O Iv Contrast(Rout) (06/05/17 ) Naloxone Inj (Narcan Inj) (06/05/17 06:15) Albuterol-Ipratropium Neb (Duoneb Neb) (06/05/17 06:15) Urine Culture (06/05/17 06:05) Sodium Chlor 0.9% 1000 Ml Inj (Ns 1000 M (06/05/17 06:45) Ceftriaxone Inj (Rocephin Inj) (06/05/17 06:45) Sodium Chlorid 0.9% 500 Ml Inj (Ns 500 M (06/05/17 10:30) Admit Order (Ed Use Only) (06/05/17 10:43) Place In Observation (06/05/17 ) Vital Signs (Adult) Q4H (06/05/17 10:43) Activity Oob With Assistance (06/05/17 10:43) Sodium Chlor 0.9% 1000 Ml Inj (Ns 1000 M (06/05/17 10:43) Sodium Chloride 0.9% Flush (Ns Flush) (06/05/17 10:45) Sodium Chloride 0.9% Flush (Ns Flush) (06/05/17 21:00) Ondansetron Inj (Zofran Inj) (06/05/17 10:45) Basic Metabolic Panel (Bmp) (06/06/17 06:00) Comprehensive Metabolic Panel (06/06/17 06:00) Scd Bilateral/Knee High ROSITA.BID (06/05/17 10:43) Naloxone Inj (Narcan Inj) (06/05/17 10:45) Docusate Sodium-Senna (Wendi-Colace) (06/05/17 21:00) Magnesium Hydroxide Liq (Milk Of Magnesi (06/05/17 10:45) Sennosides (Senokot) (06/05/17 10:45) Bisacodyl Supp (Dulcolax Supp) (06/05/17 10:45) Lactulose Liq (Lactulose Liq) (06/05/17 10:45) Ceftriaxone Inj (Rocephin Inj) (06/06/17 09:00) Nephrostomy (06/07/17 ) Labs Laboratory Tests Test 06/05/17 06:05 06/05/17 06:10 Urine Color YELLOW Urine Turbidity CLOUDY Urine pH 7.0 Urine Specific [place] 1.013 Urine Protein 100 mg/dL Urine Glucose (UA) NEG mg/dL Urine Ketones NEG mg/dL Urine Occult Blood MOD Urine Nitrite POS Urine Bilirubin NEG Urine Urobilinogen LESS THAN 2.0 MG/DL Urine Leukocyte Esterase LARGE Urine RBC 88 /hpf Urine WBC /hpf Urine WBC Clumps MANY Urine Squamous Epithelial Cells 1 /hpf Urine Bacteria MOD /hpf Urine Mucus FEW /lpf Microscopic Urinalysis Comment CATH-CULTURE IND White Blood Count 15.4 TH/MM3 Red Blood Count 3.69 MIL/MM3 Hemoglobin 9.9 GM/DL Hematocrit 31.6 % Mean Corpuscular Volume 85.8 FL Mean Corpuscular Hemoglobin 27.0 PG Mean Corpuscular Hemoglobin Concent 31.4 % Red Cell Distribution Width 15.4 % Platelet Count 246 TH/MM3 Mean Platelet Volume 8.4 FL Neutrophils (%) (Auto) 76.8 % Lymphocytes (%) (Auto) 14.8 % Monocytes (%) (Auto) 4.7 % Eosinophils (%) (Auto) 3.2 % Basophils (%) (Auto) 0.5 % Neutrophils # (Auto) 11.9 TH/MM3 Lymphocytes # (Auto) 2.3 TH/MM3 Monocytes # (Auto) 0.7 TH/MM3 Eosinophils # (Auto) 0.5 TH/MM3 Basophils # (Auto) 0.1 TH/MM3 CBC Comment DIFF FINAL Differential Comment Blood Urea Nitrogen 34 MG/DL Creatinine 2.13 MG/DL Random Glucose 89 MG/DL Total Protein 7.9 GM/DL Albumin 3.4 GM/DL Calcium Level 9.3 MG/DL Alkaline Phosphatase 91 U/L Aspartate Amino Transf (AST/SGOT) 10 U/L Alanine Aminotransferase (ALT/SGPT) 11 U/L Total Bilirubin 0.3 MG/DL Sodium Level 136 MEQ/L Potassium Level 5.4 MEQ/L Chloride Level 103 MEQ/L Carbon Dioxide Level 25.0 MEQ/L Anion Gap 8 MEQ/L Estimat Glomerular Filtration Rate 23 ML/MIN Lactic Acid Level 2.0 mmol/L MDM Medical Decision Making Medical Screen Exam Complete: Yes Emergency Medical Condition: Yes Medical Record Reviewed: Yes Differential Diagnosis Sepsis, intracranial bleed, metabolic encephalopathy Narrative Course 6:48 AM patient was given 0.4 mg of Narcan after which she woke up significantly. GCS improved to 14. Blood test results of back and patient has leukocytosis as well as renal insufficiency. UA strongly positive for UTI. I' ve ordered CT scan of her brain and abdomen and pelvis given the fact that the tube recently got dislodged and 2 cc the current location of the stone. Patient will require to be admitted if she has significant obstruction on the affected could be have ordered IV fluid as well as IV Rocephin. Case will be signed over to the oncoming ER physician. Procedures EKG Prior to Arrival: No Scripts Ertapenem Inj (Invanz Inj) 1 Gm Addvial 1 GM IV Q24H for Infection for 10 Days, INJECTION 0 Refills ADMINISTER IN 100ML NS Prov: Jana Sweeney MD 06/08/17 Epinephrine Inj (Epinephrine Inj) 1 Mg/Ml (1 Ml) Inj 0.3 MG SQ ONCE Y for ALLERGIC REACTION, #1 VIAL Give with any signs of respiratory distress. Prov: Jana Sweeney MD 06/08/17 Epinephrine Inj (Epinephrine Inj) 1 Mg/Ml (1 Ml) Inj 0.3 MG IV PUSH ONCE Y for ALLERGIC REACTION, #1 VIAL Prov: Jana Sweeney MD 06/08/17 Hydrocortisone Inj (Solu-Cortef Inj) 250 Mg/2 Ml Inj 250 MG IV PUSH ONCE Y for ALLERGIC REACTION, #1 VIAL 0 Refills Give over 30-60 seconds. Prov: Jana Sweeney MD 06/08/17 Lorazepam (Ativan) 0.5 Mg Tab 0.5 MG PO DAILY Y for ANXIETY, #3 TAB Prov: Sid Singh MD 06/08/17 Hydrocodone-Acetaminophen (Hydrocodone-Acetaminophen) 10-325 mg Tab 1 TAB PO Q8H Y for PAIN for 14 Days, #12 TAB 0 Refills Prov: Sid Singh MD 06/08/17 Hannah Ferguson MD Jun 05, 2017 06:49
--- NOTE | 2017-06-05 06:57 | RADRPT ---
EXAM DATE/TIME: 06/05/2017 06:42 [facility] COMPARISON: CT BRAIN W/O CONTRAST, April 08, 2017, 22:35. INDICATIONS : Altered mental status. RADIATION DOSE: 32.06 CTDIvol (mGy) ; Patient motion MEDICAL HISTORY : Cerebrovascular disease. Hypertension. Diabetes. SURGICAL HISTORY : Coronary artery stent. Hysterectomy ENCOUNTER: Initial ACUITY: 1 day PAIN SCALE: 0/10 LOCATION: cranial TECHNIQUE: Multiple contiguous axial images were obtained of the head. Using automated exposure control and adj ustment of the mA and/or kV according to patient size, radiation dose was kept as low as reasonably a chievable to obtain optimal diagnostic quality images. DICOM format image data is available electro nically for review and comparison. FINDINGS: Stable appearance with large area of encephalomalacia involving the right middle cerebral artery territories especially the parietal and occipital lobe. There are multiple stable dystrophic appeari ng calcifications. There is ex vacuo change involving the right lateral ventricle. There is no acute hemorrhage mass effect or midline shift. There is no evidence of acute infarction. No extra-axial flu id collections identified. The posterior fossa and brainstem remain stable and intact. The bone windo ws are unremarkable. CONCLUSION: 1. Stable chronic right middle cerebral artery territory infarct. 2. No acute hemorrhage or mass effect. Rosales Jay MD on June 05, 2017 at 6:51 Board Certified Radiologist. This report was verified electronically.
--- NOTE | 2017-06-05 07:23 | RADRPT ---
EXAM DATE/TIME: 06/05/2017 06:47 [facility] COMPARISON: CT ABDOMEN & PELVIS W/O CONTRAST, June 01, 2015, 16:04. INDICATIONS : Abdominal pain, right nephrostomy tube came out. ORAL CONTRAST: No oral contrast ingested. RADIATION DOSE: 23.81 CTDIvol (mGy) MEDICAL HISTORY : Renal calculi. Hydronephrosis. Diabetes. CVA. SURGICAL HISTORY : Hysterectomy. Right kidney stent. ENCOUNTER: Initial ACUITY: 1 day PAIN SCALE: 6/10 LOCATION: Abdomen. TECHNIQUE: Volumetric scanning of the abdomen and pelvis was performed. Using automated exposure control and ad justment of the mA and/or kV according to patient size, radiation dose was kept as low as reasonably achievable to obtain optimal diagnostic quality images. DICOM format image data is available electro nically for review and comparison. FINDINGS: Today's examination is compared to study of 06/01/2015. There is a double-J right nephrostomy tube in place. There is hydronephrosis of the right collecting system. This appears to be mildly increased co mpared to the prior examination. There are calcified stones in the mid and lower pole of the right ki dney. The left kidney is small and atrophic. No left-sided hydronephrosis. There also appears to be s ome calcifications adjacent to the proximal right double-J stents. The liver, spleen, gallbladder, pa ncreas and adrenal are unremarkable and stable. Bowel gas pattern is within normal limits. No inflamm atory changes. There is stool throughout the colon. There is a Rebolledo catheter in the urinary bladder which is decompressed. The bony structures are stable the diffuse degenerative changes. There is a ne w infiltrate in the right lung base. CONCLUSION: 1. There is a double-J stent in the right collecting system. There is hydronephrosis of the right col lecting system which appears to be mildly increased compared to 2014. 2. There are multiple calcified stones in the right kidney and right renal pelvis. 3. Otherwise, no other significant changes compared to the prior exam from 2014. Yo Joiner MD on June 05, 2017 at 7:17 Board Certified Radiologist. This report was verified electronically.
[2017-06-05] MEDS ORDERED: SODIUM CHLORID 0.9% 500 ML INJ 500 ML IV ONE (10:30)
--- NOTE | 2017-06-05 10:40 | PD ---
Physical Exam Narrative GENERAL: Well-nourished, well-developed patient. SKIN: Warm and dry. HEAD: Normocephalic EYES: No injection or drainage. ENT: No nasal drainage noted. NECK: Supple, trachea midline. CARDIOVASCULAR: Regular rate and rhythm RESPIRATORY: no increased effort. No accessory muscle use. NEUROLOGICAL: opens eyes to voice. moves extremities. clear speech. Data Data Last Documented VS Vital Signs Date Time Temp Pulse Resp B/P (MAP) Pulse Ox O2 Delivery O2 Flow Rate FiO2 06/05/17 08:33 75 12 116/62 (80) 99 Nasal Cannula 2.00 06/05/17 05:51 98.8 Orders Orders Sepsis Workup Initiated (06/05/17 ) Complete Blood Count With Diff (06/05/17 05:54) Comprehensive Metabolic Panel (06/05/17 05:54) Lactic Acid Sepsis Protocol (06/05/17 05:54) Urinalysis - C+S If Indicated (06/05/17 05:54) Blood Culture (06/05/17 05:54) Chest, Single Ap (06/05/17 05:54) Blood Glucose (06/05/17 05:54) Ecg Monitoring (06/05/17 05:54) Iv Access Insert/Monitor (06/05/17 05:54) Oximetry (06/05/17 05:54) Oxygen Administration (06/05/17 05:54) Ct Abd/Pel W/O Iv Contrast (06/05/17 ) Type And Screen (06/05/17 05:54) Ct Brain W/O Iv Contrast(Rout) (06/05/17 ) Naloxone Inj (Narcan Inj) (06/05/17 06:15) Albuterol-Ipratropium Neb (Duoneb Neb) (06/05/17 06:15) Urine Culture (06/05/17 06:05) Sodium Chlor 0.9% 1000 Ml Inj (Ns 1000 M (06/05/17 06:45) Ceftriaxone Inj (Rocephin Inj) (06/05/17 06:45) Invasive Rad Dept Consult (06/05/17 ) Sodium Chlorid 0.9% 500 Ml Inj (Ns 500 M (06/05/17 10:30) Admit Order (Ed Use Only) (06/05/17 10:43) Place In Observation (06/05/17 ) Vital Signs (Adult) Q4H (06/05/17 10:43) Activity Oob With Assistance (06/05/17 10:43) Diet Npo (06/05/17 Lunch) Sodium Chlor 0.9% 1000 Ml Inj (Ns 1000 M (06/05/17 10:43) Sodium Chloride 0.9% Flush (Ns Flush) (06/05/17 10:45) Sodium Chloride 0.9% Flush (Ns Flush) (06/05/17 21:00) Ondansetron Inj (Zofran Inj) (06/05/17 10:45) Basic Metabolic Panel (Bmp) (06/06/17 06:00) Comprehensive Metabolic Panel (06/06/17 06:00) Scd Bilateral/Knee High ROSITA.BID (06/05/17 10:43) Naloxone Inj (Narcan Inj) (06/05/17 10:45) Docusate Sodium-Senna (Wendi-Colace) (06/05/17 21:00) Magnesium Hydroxide Liq (Milk Of Magnesi (06/05/17 10:45) Sennosides (Senokot) (06/05/17 10:45) Bisacodyl Supp (Dulcolax Supp) (06/05/17 10:45) Lactulose Liq (Lactulose Liq) (06/05/17 10:45) Ceftriaxone Inj (Rocephin Inj) (06/05/17 10:45) Labs Laboratory Tests Test 06/05/17 06:05 06/05/17 06:10 Urine Color YELLOW Urine Turbidity CLOUDY Urine pH 7.0 Urine Specific [place] 1.013 Urine Protein 100 mg/dL Urine Glucose (UA) NEG mg/dL Urine Ketones NEG mg/dL Urine Occult Blood MOD Urine Nitrite POS Urine Bilirubin NEG Urine Urobilinogen LESS THAN 2.0 MG/DL Urine Leukocyte Esterase LARGE Urine RBC 88 /hpf Urine WBC /hpf Urine WBC Clumps MANY Urine Squamous Epithelial Cells 1 /hpf Urine Bacteria MOD /hpf Urine Mucus FEW /lpf Microscopic Urinalysis Comment CATH-CULTURE IND White Blood Count 15.4 TH/MM3 Red Blood Count 3.69 MIL/MM3 Hemoglobin 9.9 GM/DL Hematocrit 31.6 % Mean Corpuscular Volume 85.8 FL Mean Corpuscular Hemoglobin 27.0 PG Mean Corpuscular Hemoglobin Concent 31.4 % Red Cell Distribution Width 15.4 % Platelet Count 246 TH/MM3 Mean Platelet Volume 8.4 FL Neutrophils (%) (Auto) 76.8 % Lymphocytes (%) (Auto) 14.8 % Monocytes (%) (Auto) 4.7 % Eosinophils (%) (Auto) 3.2 % Basophils (%) (Auto) 0.5 % Neutrophils # (Auto) 11.9 TH/MM3 Lymphocytes # (Auto) 2.3 TH/MM3 Monocytes # (Auto) 0.7 TH/MM3 Eosinophils # (Auto) 0.5 TH/MM3 Basophils # (Auto) 0.1 TH/MM3 CBC Comment DIFF FINAL Differential Comment Blood Urea Nitrogen 34 MG/DL Creatinine 2.13 MG/DL Random Glucose 89 MG/DL Total Protein 7.9 GM/DL Albumin 3.4 GM/DL Calcium Level 9.3 MG/DL Alkaline Phosphatase 91 U/L Aspartate Amino Transf (AST/SGOT) 10 U/L Alanine Aminotransferase (ALT/SGPT) 11 U/L Total Bilirubin 0.3 MG/DL Sodium Level 136 MEQ/L Potassium Level 5.4 MEQ/L Chloride Level 103 MEQ/L Carbon Dioxide Level 25.0 MEQ/L Anion Gap 8 MEQ/L Estimat Glomerular Filtration Rate 23 ML/MIN Lactic Acid Level 2.0 mmol/L [facility] Supervised Visit with KARMEN: No Interpretation(s) Last 24 hours Impressions Chest X-Ray 06/05/17 0554 Signed Impressions: Service Date/Time: Monday, June 05, 2017 06:04 - CONCLUSION: No acute disease. Rosales Jay MD Head CT 06/05/17 0000 Signed Impressions: Service Date/Time: Monday, June 05, 2017 06:42 - CONCLUSION: 1. Stable chronic right middle cerebral artery territory infarct. 2. No acute hemorrhage or mass effect. Rosales Jay MD Abdomen/Pelvis CT 06/05/17 0000 Signed Impressions: Service Date/Time: Monday, June 05, 2017 06:47 - CONCLUSION: 1. There is a double-J stent in the right collecting system. There is hydronephrosis of the right collecting system which appears to be mildly increased compared to 2015. 2. There are multiple calcified stones in the right kidney and right renal pelvis. 3. Otherwise, no other significant changes compared to the prior exam from 2015. Yo Joiner MD Narrative Course signed over to me to follow ct abdomen pelvis and will need IR to replace nephrostomy tube CT abdomen pelvis still shows calculus, patient has mild bump in her renal insufficiency, patient here with leukocytosis and persistent UTI. She'll be admitted to the hospital for observation to continue to get antibiotics while awaiting nephrostomy tube replacement Physician Communication Physician Communication dr amaya agrees to admit Diagnosis Primary Impression: Altered mental status Qualified Codes: R41.82 - Altered mental status, unspecified Additional Impressions: UTI (urinary tract infection) Qualified Codes: N39.0 - Urinary tract infection, site not specified Renal insufficiency Nephrostomy tube displaced Admitting Information Admitting Physician Requests: Observation Sowmya Jean Baptiste MD Jun 05, 2017 10:40
[2017-06-05] MEDS ORDERED: LACTULOSE SYRUP 20 GM/30 ML CUP PO PRN (10:45)
[2017-06-05] MEDS ORDERED: SENNOSIDES 8.6 MG TAB PO PRN (10:45)
[2017-06-05] MEDS ORDERED: MAGNESIUM HYDROXIDE SUSP 30 ML CUP PO PRN (10:45)
[2017-06-05] MEDS ORDERED: NALOXONE HCL 0.4 MG/ML AMP IV PUSH PRN (10:45)
[2017-06-05] MEDS ORDERED: BISACODYL 10 MG SUPP RECTAL PRN ×2 (10:45→21:15)
[2017-06-05] MEDS ORDERED: SODIUM CHLORIDE 0.9% FLUSH 10 ML FLUSH IV FLUSH PRN (10:45)
[2017-06-05] MEDS ORDERED: ONDANSETRON HCL 4 MG/2 ML VIAL IVP PRN (10:45)
[2017-06-05] MEDS ORDERED: IOHEXOL 350 MG/ML 50 ML BTL (for RAD DIAG) OTHER ONE (10:47)
[2017-06-05] MEDS: SODIUM CHLOR 0.9% 1000 ML INJ 1,000 ML IV SCH (12:11)
--- NOTE | 2017-06-05 14:02 | HHI.HP ---
HPI Service [facility] Primary Care Physician Nii Stone M.D. Admission Diagnosis uti, renal insufficiency, altered mental status episode Diagnoses: Chief Complaint: altered mental status Travel History International Travel<30 Days: No Contact w/Intl Traveler <30 Da: No Traveled to Known Affected Are: No History of Present Illness Patient is a 61-year-old female with history of left hemiparesis and speech difficulty from a previous stroke, bipolar, schizophrenia, depression and anxiety, CAD, hypertension, atrial fibrillation, hyperlipidemia, diabetes mellitus, osteoarthritis, decubitus ulcer on heel and sacral area chronic, history of carotid stenosis and recently hospitalized March 2015 for severe sepsis [facility] dis[facility]ging her left nephrostomy tube. Patient has the to put in for a large ureteral calculus. She also has a indwelling Rebolledo catheter. As per the paramedics patient was awake on route. However after coming to the ER at the registration patient suddenly became unresponsive. She did maintain her airway breathing spontaneously. Her oxygenation dropped to high 80s and she was started on nasal cannula. When she was awake on route she was alert, aao 3 and talking. No history of any pain as per the paramedics. Patient is sleepy but able to answer some questions. Review of Systems ROS Limitations: Altered Mental Status, Poor Historian Except as stated in HPI: all other systems reviewed are Neg Past Family Social History Past Medical History CVA with left-sided hemiparesis, bipolar, schizophrenia, depression and anxiety , CAD, hypertension, atrial fibrillation on Xarelto, hyperlipidemia, diabetes mellitus, osteoarthritis, decubitus ulcer on heel and sacral area chronic, history of carotid stenosis and recently hospitalized March 2015 for severe sepsis History kidney stones, hematuria. History of ESBL infection Past Surgical History Hysterectomy, cardiac stent RCA and LAD, tonsillectomy, ORIF left hip, dental extractions, placement of urinary stent, placement nephrostomy tube Reported Medications Reported Meds & Active Scripts Active Zyvox (Linezolid) 600 Mg Tab 600 Mg PO Q12H 7 Days Levaquin (Levofloxacin) 500 Mg Tablet 500 Mg PO DAILY 14 Days Lorazepam 0.5 Mg Tab 0.5 Mg PO TID PRN 10 Days Hydrocodone-Acetaminophen 10-325 mg Tab 1 Tab PO Q4H PRN 14 Days Reported Loperamide (Loperamide HCl) 2 Mg Tablet 4 Mg PO PRN Bisacodyl Supp (Bisacodyl) 10 Mg Supp 10 Mg RECTAL DAILY PRN Alum-Mag Hydroxide-Simeth Liq (Mag Hydrox/Aluminum Hyd/Simeth) 200 Mg-200 Mg-20 Mg/5 Ml Oral.susp 30 Ml PO Q4HR Tylenol (Acetaminophen) 325 Mg Tab 650 Mg PO Q4HR PRN Gabapentin 100 Mg Cap 100 Mg PO DAILY Ferrous Sulfate 325 Mg (65 Mg Iron) Tablet 325 Mg PO TIDPC Aspirin EC (Aspirin) 81 Mg Tabdr 81 Mg PO DAILY Amlodipine (Amlodipine Besylate) 10 Mg Tab 10 Mg PO DAILY Glytrol (Nut.tx.gluc.intoler,Lac-Fr,Soy) 1,000 Ml Liquid 60 Ml PO TID Levemir Inj (Insulin Detemir) 1,000 unit/ 10 ML Vial 7 Units SQ HS Do not mix with any other Insulin. Thera M Plus (Multivitamins/Minerals Therapeutic) 1 Tab 1 Tab PO DAILY Spironolactone 25 Mg Tab 25 Mg PO DAILY Sertraline (Sertraline HCl) 50 Mg Tab 50 Mg PO DAILY Senna-Tabs (Sennosides) 8.6 Mg Tab 8.6 Mg PO BID Risperidone 0.5 Mg Tab 0.5 Mg PO TID Potassium Chloride ER (Potassium Chloride) 10 Meq Cap 10 Meq PO DAILY Omeprazole 20 Mg Tab 20 Mg PO DAILY Metoprolol Tartrate 25 Mg Tab 25 Mg PO BID Hydralazine (Hydralazine HCl) 100 Mg Tab 50 Mg PO TID Take with meals Allergies: Coded Allergies: *MDRO Multi-Drug Resistant Organism (Verified Adverse Reaction, Unknown, 06/05/17) 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 ESBL + E. 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 Physical Exam Vital Signs Vital Signs Date Time Temp Pulse Resp B/P (MAP) Pulse Ox O2 Delivery O2 Flow Rate FiO2 06/05/17 13:14 98.9 80 18 133/66 (88) 100 06/05/17 13:03 06/05/17 10:30 68 20 108/58 (75) 98 Nasal Cannula 2.00 06/05/17 09:30 70 13 111/52 (71) 99 Nasal Cannula 2.00 06/05/17 08:33 75 12 116/62 (80) 99 Nasal Cannula 2.00 06/05/17 05:58 95 Nasal Cannula 2.00 06/05/17 05:58 79 18 128/54 (78) 95 Room Air 06/05/17 05:58 98 BiPAP 06/05/17 05:58 80 20 06/05/17 05:51 98.8 76 18 128/54 (78) 96 Physical Exam GENERAL: This is a 61 yo F, lethargic, well-nourished, well-developed patient. SKIN: No rashes, ecchymoses or lesions. Cool and dry. HEAD: Atraumatic. Normocephalic. No temporal or scalp tenderness. EYES: Pupils equal round and reactive. Extraocular motions intact. No scleral icterus. No injection or drainage. ENT: Nose without bleeding, purulent drainage or septal hematoma. Throat without erythema, tonsillar hypertrophy or exudate. Uvula midline. Airway patent. NECK: Trachea midline. No JVD or lymphadenopathy. Supple, nontender, no meningeal signs. CARDIOVASCULAR: Regular rate and rhythm without murmurs, gallops, or rubs. RESPIRATORY: Clear to auscultation. Breath sounds equal bilaterally. No wheezes , rales, or rhonchi. GASTROINTESTINAL: Abdomen soft, non-tender, nondistended. No hepato-splenomegaly , or palpable masses. No guarding. MUSCULOSKELETAL: Extremities without clubbing, cyanosis, or edema. No joint tenderness, effusion, or edema noted. No calf tenderness. Negative Homans sign bilaterally. NEUROLOGICAL: Lethargic. Laboratory Laboratory Tests Test 06/05/17 06:05 06/05/17 06:10 Urine Color YELLOW Urine Turbidity CLOUDY Urine pH 7.0 Urine Specific [place] 1.013 Urine Protein 100 Urine Glucose (UA) NEG Urine Ketones NEG Urine Occult Blood MOD Urine Nitrite POS Urine Bilirubin NEG Urine Urobilinogen LESS THAN 2.0 Urine Leukocyte Esterase LARGE Urine RBC 88 Urine WBC Urine WBC Clumps MANY Urine Squamous Epithelial Cells 1 Urine Bacteria MOD Urine Mucus FEW Microscopic Urinalysis Comment CATH-CULTURE IND White Blood Count 15.4 Red Blood Count 3.69 Hemoglobin 9.9 Hematocrit 31.6 Mean Corpuscular Volume 85.8 Mean Corpuscular Hemoglobin 27.0 Mean Corpuscular Hemoglobin Concent 31.4 Red Cell Distribution Width 15.4 Platelet Count 246 Mean Platelet Volume 8.4 Neutrophils (%) (Auto) 76.8 Lymphocytes (%) (Auto) 14.8 Monocytes (%) (Auto) 4.7 Eosinophils (%) (Auto) 3.2 Basophils (%) (Auto) 0.5 Neutrophils # (Auto) 11.9 Lymphocytes # (Auto) 2.3 Monocytes # (Auto) 0.7 Eosinophils # (Auto) 0.5 Basophils # (Auto) 0.1 CBC Comment DIFF FINAL Differential Comment Blood Urea Nitrogen 34 Creatinine 2.13 Random Glucose 89 Total Protein 7.9 Albumin 3.4 Calcium Level 9.3 Alkaline Phosphatase 91 Aspartate Amino Transf (AST/SGOT) 10 Alanine Aminotransferase (ALT/SGPT) 11 Total Bilirubin 0.3 Sodium Level 136 Potassium Level 5.4 Chloride Level 103 Carbon Dioxide Level 25.0 Anion Gap 8 Estimat Glomerular Filtration Rate 23 Lactic Acid Level 2.0 Date/Time Source Procedure Growth Status 06/05/17 06:10 Blood Peripheral Aerobic Blood Culture Pending Received 06/05/17 06:10 Blood Peripheral Anaerobic Blood Culture Pending Received 06/05/17 06:05 Urine Catheterized Urine Urine Culture Pending Received Result Diagram: 06/05/17 0610 06/05/17 0610 Caprini VTE Risk Assessment Caprini VTE Risk Assessment: Mod/High Risk (score >= 2) Caprini Risk Assessment Model Point Value = 1 Point Value = 2 Point Value = 3 Point Value = 5 Age 41-60 Minor surgery BMI > 25 kg/m2 Swollen legs Varicose veins or History of unexplained or recurrent spontaneous Oral contraceptives or hormone replacement Sepsis (< 1 month) Serious lung disease, including pneumonia (< 1 month) Abnormal pulmonary function Acute myocardial infarction Congestive heart failure (< 1 month) History of inflammatory bowel disease Medical patient at bed rest Age 61-74 Arthroscopic surgery Major open surgery (> 45 min) Laparoscopic surgery (> 45 min) Malignancy Confined to bed (> 72 hours) Immobilizing plaster cast Central venous access Age >= 75 History of VTE Family history of VTE Factor V Leiden Prothrombin [id number] Lupus anticoagulant Anticardiolipin antibodies Elevated serum homocysteine Heparin-induced thrombocytopenia Other congenital or acquired thrombophilia Stroke (< 1 month) Elective arthroplasty Hip, pelvis, or leg fracture Acute spinal cord injury (< 1 month) Prophylaxis Regimen Total Risk Factor Score Risk Level Prophylaxis Regimen 0-1 Low Early ambulation 2 Moderate Order ONE of the following: *Sequential Compression Device (SCD) *Heparin 5000 units SQ BID 3-4 Higher Order ONE of the following medications: *Heparin 5000 units SQ TID *Enoxaparin/Lovenox 40 mg SQ daily (WT < 150 kg, CrCl > 30 mL/min) *Enoxaparin/Lovenox 30 mg SQ daily (WT < 150 kg, CrCl > 10-29 mL/min) *Enoxaparin/Lovenox 30 mg SQ BID (WT < 150 kg, CrCl > 30 mL/min) AND/OR *Sequential Compression Device (SCD) 5 or more Highest Order ONE of the following medications: *Heparin 5000 units SQ TID (Preferred with Epidurals) *Enoxaparin/Lovenox 40 mg SQ daily (WT < 150 kg, CrCl > 30 mL/min) *Enoxaparin/Lovenox 30 mg SQ daily (WT < 150 kg, CrCl > 10-29 mL/min) *Enoxaparin/Lovenox 30 mg SQ BID (WT < 150 kg, CrCl > 30 mL/min) AND *Sequential Compression Device (SCD) Assessment and Plan Assessment and Plan 61-year-old female with history of CVA, kidney stones with recent nephrostomy tube placement, UTI. Recurrent UTI (urinary tract infection) with multiple organisms, consider ID consult Leukocytosis without sepsis criteria Renal insufficiency Nephrostomy tube displaced Altered mental status, likely multifactorial -secondary to infectious process, dehydration, acute kidney injury CT abdomen pelvis reviewed, shows calculus, nephrostomy tube displaced. Blood cultures, urine cultures pending Start IV abx, rocephin IV continue linezolid PO, ID consult. Consult IR to replace nephrostomy tube Keep NPO Continue with IV fluids Monitor neuro status Consult urology was seen by Dr Chong last admission History of CVA with left-sided hemiparesis Continue home meds as appropriate History of A. fib, currently sinus rhythm. Patient used to be on Xarelto, no longer on anticoagulation due to hematuria. Continue beta brayan. Monitor History of Schizophrenia Continue home meds as appropriate DVT ppx SCD.TEDs consider chemical ppx after nephrostomy tube placement Dafne Louis MD Jun 05, 2017 14:02
[2017-06-05] MEDS ORDERED: ACETAMINOPHEN/HYDROcodone 325 MG/5 MG TAB PO PRN (15:00)
--- NOTE | 2017-06-05 18:50 | PD.CONS ---
HPI Service Urology Consult Requested By Reason for Consult Nephrolithiasis, UTI Primary Care Physician Nii Stone M.D. 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 It is unclear when this stent was placed. However CT scan images identify significant stone burden noted in the right kidney as well as the distal portion of this ureteral stent, suggesting this stent may have been in place for a prolonged period of time. She had a right nephrostomy tube in place which was accidentally pulled out. It appears she is planning to undergo procedure to remove the stone and stents with Dr. Stevenson in the near future. At this time the patient is non verbal, not answering questions appropriately. She does not appear in pain. History obtained from nursing staff and prior notes. Review of Systems ROS Limitations: Clinical Condition Constitutional: DENIES: Fever Eyes: DENIES: Diplopia Ears, nose, mouth, throat: DENIES: Hearing loss Respiratory: DENIES: Cough Cardiovascular: DENIES: Chest pain Gastrointestinal: DENIES: Abdominal pain Genitourinary: DENIES: Hematuria Musculoskeletal: COMPLAINS OF: Back pain Neurologic: DENIES: Headache Psychiatric: COMPLAINS OF: Confusion, DENIES: Anxiety Except as stated in HPI: all other systems reviewed are Neg Past Family Social History Past Medical History CVA with left-sided hemiparesis, bipolar, schizophrenia, depression and anxiety , CAD, hypertension, atrial fibrillation on Xarelto, hyperlipidemia, diabetes mellitus, osteoarthritis, decubitus ulcer on heel and sacral area chronic, history of carotid stenosis and recently hospitalized March 2015 for severe sepsis History kidney stones, hematuria. History of ESBL infection Past Surgical History Hysterectomy, cardiac stent RCA and LAD, tonsillectomy, ORIF left hip, dental extractions, placement of urinary stent, placement nephrostomy tube Reported Medications Reported Meds & Active Scripts Active Zyvox (Linezolid) 600 Mg Tab 600 Mg PO Q12H 7 Days Levaquin (Levofloxacin) 500 Mg Tablet 500 Mg PO DAILY 14 Days Lorazepam 0.5 Mg Tab 0.5 Mg PO TID PRN 10 Days Hydrocodone-Acetaminophen 10-325 mg Tab 1 Tab PO Q4H PRN 14 Days Reported Loperamide (Loperamide HCl) 2 Mg Tablet 4 Mg PO PRN Bisacodyl Supp (Bisacodyl) 10 Mg Supp 10 Mg RECTAL DAILY PRN Alum-Mag Hydroxide-Simeth Liq (Mag Hydrox/Aluminum Hyd/Simeth) 200 Mg-200 Mg-20 Mg/5 Ml Oral.susp 30 Ml PO Q4HR Tylenol (Acetaminophen) 325 Mg Tab 650 Mg PO Q4HR PRN Gabapentin 100 Mg Cap 100 Mg PO DAILY Ferrous Sulfate 325 Mg (65 Mg Iron) Tablet 325 Mg PO TIDPC Aspirin EC (Aspirin) 81 Mg Tabdr 81 Mg PO DAILY Amlodipine (Amlodipine Besylate) 10 Mg Tab 10 Mg PO DAILY Glytrol (Nut.tx.gluc.intoler,Lac-Fr,Soy) 1,000 Ml Liquid 60 Ml PO TID Levemir Inj (Insulin Detemir) 1,000 unit/ 10 ML Vial 7 Units SQ HS Do not mix with any other Insulin. Thera M Plus (Multivitamins/Minerals Therapeutic) 1 Tab 1 Tab PO DAILY Spironolactone 25 Mg Tab 25 Mg PO DAILY Sertraline (Sertraline HCl) 50 Mg Tab 50 Mg PO DAILY Senna-Tabs (Sennosides) 8.6 Mg Tab 8.6 Mg PO BID Risperidone 0.5 Mg Tab 0.5 Mg PO TID Potassium Chloride ER (Potassium Chloride) 10 Meq Cap 10 Meq PO DAILY Omeprazole 20 Mg Tab 20 Mg PO DAILY Metoprolol Tartrate 25 Mg Tab 25 Mg PO BID Hydralazine (Hydralazine HCl) 100 Mg Tab 50 Mg PO TID Take with meals Allergies: Coded Allergies: *MDRO Multi-Drug Resistant Organism (Verified Adverse Reaction, Unknown, 06/05/17) 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 ESBL + E. 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 Ordered Medications Current Medications Medications (Trade) Dose Ordered Sig/Sukhi Route Start Time Stop Time Status Last Admin (NS Flush) 2 ml UNSCH PRN IV FLUSH 06/05/17 10:45 (NS Flush) 2 ml BID IV FLUSH 06/05/17 21:00 (Zofran Inj) 4 mg Q6H PRN IVP 06/05/17 10:45 (Narcan Inj) 0.4 mg UNSCH PRN IV PUSH 06/05/17 10:45 (Wendi-Colace) 1 tab BID PO 06/05/17 21:00 06/06/17 09:00 (Milk Of Magnesia Liq) 30 ml Q12H PRN PO 06/05/17 10:45 (Lactulose Liq) 30 ml DAILY PRN PO 06/05/17 10:45 Ceftriaxone Sodium 1000 mg/ Sodium Chloride 100 ml @ 200 mls/hr Q24H IV 06/06/17 09:00 06/06/17 09:00 (Tylenol) 650 mg Q4HR PRN PO 06/05/17 21:15 (Norvasc) 10 mg DAILY PO 06/06/17 09:00 06/06/17 09:00 (Dulcolax Supp) 10 mg DAILY PRN RECTAL 06/05/17 21:15 (Ferrous Sulfate) 325 mg TIDPC PO 06/06/17 09:30 06/06/17 17:10 (Neurontin) 100 mg DAILY PO 06/06/17 09:00 06/06/17 09:00 (Apresoline) 50 mg TID PO 06/06/17 09:00 06/06/17 17:10 ([place] 10-325 Mg) 1 tab Q4H PRN PO 06/05/17 21:15 (Levemir Inj) 7 units HS SQ 06/06/17 21:00 (Zyvox) 600 mg Q12H PO 06/05/17 23:00 06/06/17 11:00 (Mag-Al Plus Susp Liq) 30 ml Q4HR PO 06/06/17 00:00 06/06/17 17:10 (Lopressor) 25 mg BID PO 06/06/17 09:00 06/06/17 09:00 (Theragran M Tab) 1 tab DAILY PO 06/06/17 09:00 06/06/17 09:00 (KCl) 10 meq DAILY PO 06/06/17 09:00 06/06/17 09:00 (risperDAL) 0.5 mg TID PO 06/06/17 09:00 06/06/17 17:10 (Senokot) 8.6 mg BID PO 06/06/17 09:00 06/06/17 09:00 (Zoloft) 50 mg DAILY PO 06/06/17 09:00 06/06/17 09:00 (Aldactone) 25 mg DAILY PO 06/06/17 09:00 06/06/17 09:00 (Imodium) 4 mg UNSCH X1 PRN PO 06/05/17 21:15 06/12/17 21:14 (Protonix) 20 mg DAILY PO 06/06/17 09:00 06/06/17 09:00 (Ativan) 0.5 mg DAILY PRN PO 06/06/17 14:15 (NovoLOG SUPPLEMENTAL SCALE) 1 ACHS SLIDING SCALE SQ 06/06/17 17:00 (D50w (Vial) Inj) 50 ml UNSCH PRN IV PUSH 06/06/17 14:45 (Glucagon Inj) 1 mg UNSCH PRN OTHER 06/06/17 14:45 Family History Family history reviewed and noncontributory to present illness Social History No report of EtOH use, tobacco use or illicit drug use. Physical Exam Vital Signs Date Time Temp Pulse Resp B/P (MAP) Pulse Ox O2 Delivery O2 Flow Rate FiO2 06/05/17 16:10 99.2 68 20 142/70 (94) 98 06/05/17 13:14 98.9 80 18 133/66 (88) 100 06/05/17 13:03 06/05/17 10:30 68 20 108/58 (75) 98 Nasal Cannula 2.00 06/05/17 09:30 70 13 111/52 (71) 99 Nasal Cannula 2.00 06/05/17 08:33 75 12 116/62 (80) 99 Nasal Cannula 2.00 06/05/17 05:58 95 Nasal Cannula 2.00 06/05/17 05:58 79 18 128/54 (78) 95 Room Air 06/05/17 05:58 98 BiPAP 06/05/17 05:58 80 20 06/05/17 05:51 98.8 76 18 128/54 (78) 96 Physical Exam GENERAL: This is a well-nourished, well-developed patient, in no apparent distress. SKIN: No rashes, ecchymoses or lesions. Cool and dry. HEAD: Atraumatic. Normocephalic. EYES: Extraocular motions intact. No scleral icterus. No injection or drainage. ENT: Nose without bleeding, purulent drainage. Airway patent. NECK: Trachea midline. CARDIOVASCULAR: Normal pulses RESPIRATORY: Nonlabored GASTROINTESTINAL: Abdomen soft, non-tender, nondistended. MUSCULOSKELETAL: Extremities without clubbing, cyanosis, or edema NEUROLOGICAL: Awake, not responding appropriately. Motor and sensory grossly within normal limits, however contraction of the left UE noted Lab results reviewed: Yes Laboratory Tests Test 06/05/17 06:05 06/05/17 06:10 Urine Color YELLOW Urine Turbidity CLOUDY Urine pH 7.0 Urine Specific [place] 1.013 Urine Protein 100 Urine Glucose (UA) NEG Urine Ketones NEG Urine Occult Blood MOD Urine Nitrite POS Urine Bilirubin NEG Urine Urobilinogen LESS THAN 2.0 Urine Leukocyte Esterase LARGE Urine RBC 88 Urine WBC Urine WBC Clumps MANY Urine Squamous Epithelial Cells 1 Urine Bacteria MOD Urine Mucus FEW Microscopic Urinalysis Comment CATH-CULTURE IND White Blood Count 15.4 Red Blood Count 3.69 Hemoglobin 9.9 Hematocrit 31.6 Mean Corpuscular Volume 85.8 Mean Corpuscular Hemoglobin 27.0 Mean Corpuscular Hemoglobin Concent 31.4 Red Cell Distribution Width 15.4 Platelet Count 246 Mean Platelet Volume 8.4 Neutrophils (%) (Auto) 76.8 Lymphocytes (%) (Auto) 14.8 Monocytes (%) (Auto) 4.7 Eosinophils (%) (Auto) 3.2 Basophils (%) (Auto) 0.5 Neutrophils # (Auto) 11.9 Lymphocytes # (Auto) 2.3 Monocytes # (Auto) 0.7 Eosinophils # (Auto) 0.5 Basophils # (Auto) 0.1 CBC Comment DIFF FINAL Differential Comment Blood Urea Nitrogen 34 Creatinine 2.13 Random Glucose 89 Total Protein 7.9 Albumin 3.4 Calcium Level 9.3 Alkaline Phosphatase 91 Aspartate Amino Transf (AST/SGOT) 10 Alanine Aminotransferase (ALT/SGPT) 11 Total Bilirubin 0.3 Sodium Level 136 Potassium Level 5.4 Chloride Level 103 Carbon Dioxide Level 25.0 Anion Gap 8 Estimat Glomerular Filtration Rate 23 Lactic Acid Level 2.0 Date/Time Source Procedure Growth Status 06/05/17 06:10 Blood Peripheral Aerobic Blood Culture Pending Received 06/05/17 06:10 Blood Peripheral Anaerobic Blood Culture Pending Received 06/05/17 06:05 Urine Catheterized Urine Urine Culture Pending Received Result Diagram: 06/05/1710 06/05/17609 Personally reviewed images: Yes Imaging Last Impressions Chest X-Ray 06/05/1754 Signed Impressions: Service Date/Time: Monday, June 05, 2017 06:04 - CONCLUSION: No acute disease. Rosales Jay MD Head CT 06/05/17 0000 Signed Impressions: Service Date/Time: Monday, June 05, 2017 06:42 - CONCLUSION: 1. Stable chronic right middle cerebral artery territory infarct. 2. No acute hemorrhage or mass effect. Rosales Jay MD Abdomen/Pelvis CT 06/05/17 0000 Signed Impressions: Service Date/Time: Monday, June 05, 2017 06:47 - CONCLUSION: 1. There is a double-J stent in the right collecting system. There is hydronephrosis of the right collecting system which appears to be mildly increased compared to 2015. 2. There are multiple calcified stones in the right kidney and right renal pelvis. 3. Otherwise, no other significant changes compared to the prior exam from 2014. Yo Joiner MD Assessment and Plan Assessment and Plan -IR to place new right nephrostomy tube -She will need definitive management of her stone burden with a right PCNL and cystolitholapaxy to remove the the distal portion of the stent and stones surrounding it. Patient is followed by Dr. Stevenson in Urology -Patient is clear for discharge from Urology standpoint after medical stabilization and placement of the right nephrostomy tube with plans for follow- up in Urology Clinic -Please call with questions Nelson Trevizo MD Jun 05, 2017 18:50
[2017-06-05] MEDS: DOCUSATE SODIUM 50 MG/SENNA 8.6 MG TAB PO SCH (21:00)
[2017-06-05] MEDS: SODIUM CHLORIDE 0.9% FLUSH 10 ML FLUSH IV FLUSH SCH (21:00)
[2017-06-05] MEDS ORDERED: ACETAMINOPHEN 325 MG TAB PO PRN (21:15)
[2017-06-05] MEDS ORDERED: LOPERAMIDE HCL 2 MG CAP PO PRN (21:15)
[2017-06-05] MEDS ORDERED: LORazepam 0.5 MG TAB PO PRN (21:15)
[2017-06-06] MEDS: ALUMINUM/MAGNESIUM/SIMETH 30 ML CUP PO SCH ×6 (00:47→21:33)
[2017-06-06] MEDS: LINEZOLID 600 MG TAB PO SCH ×3 (00:47→21:33)
[2017-06-06] MEDS: SODIUM CHLOR 0.9% 1000 ML INJ 1,000 ML IV SCH ×2 (03:23→11:23)
[2017-06-06 03:37] VITALS: BP 156/78; PULSE 93; RESP 18; TEMP 98.5; O2SAT 99
[2017-06-06 07:16] LABS: ALKALINE PHOSPHATASE 77 U/L (45-117); ALT (GPT) 13 U/L (10-53); ANION GAP 7 MEQ/L (5-15); AST (GOT) 8 U/L (15-37); BICARBONATE 25.6 MEQ/L (21.0-32.0); BLOOD UREA NITROGEN 28 MG/DL (7-18); CHLORIDE 109 MEQ/L (98-107); GLOMERULAR FILTRATION RATE 27 ML/MIN (>89); POTASSIUM 4.6 MEQ/L (3.5-5.1); SODIUM (NA) 142 MEQ/L (136-145); TOTAL BILIRUBIN ADULT 0.2 MG/DL (0.2-1.0)
[2017-06-06 08:53] VITALS: BP 158/79; PULSE 70; RESP 18; TEMP 98.6; O2SAT 95
[2017-06-06] MEDS: cefTRIAXone INJ 1,000 MG in SODIUM CHLORIDE 0.9% INJ 100 ML IV SCH (09:00)
[2017-06-06] MEDS: METOPROLOL TARTRATE 25 MG TAB PO SCH ×2 (09:00→21:33)
[2017-06-06] MEDS: risperiDONE 0.5 MG TAB PO SCH ×3 (09:00→17:10)
[2017-06-06] MEDS: SODIUM CHLORIDE 0.9% FLUSH 10 ML FLUSH IV FLUSH SCH ×2 (09:00→21:33)
[2017-06-06] MEDS: POTASSIUM CHLORIDE 10 MEQ CAP PO SCH (09:00)
[2017-06-06] MEDS: GABAPENTIN 100 MG CAP PO SCH (09:00)
[2017-06-06] MEDS: MULTIVITAMINS/MINERALS THERAPEUTIC TAB PO SCH (09:00)
[2017-06-06] MEDS: hydrALAZINE HCL 100 MG TAB PO SCH ×3 (09:00→17:10)
[2017-06-06] MEDS ORDERED: NUT TX GLUC INTOLER LAC FR SOY PO SCH (09:00)
[2017-06-06] MEDS: SPIRONOLACTONE 25 MG TAB PO SCH (09:00)
[2017-06-06] MEDS: PANTOPRAZOLE SOD 20 MG DELAYED RELEASE TAB PO SCH (09:00)
[2017-06-06] MEDS: SERTRALINE HCL 50 MG TAB PO SCH (09:00)
[2017-06-06] MEDS: DOCUSATE SODIUM 50 MG/SENNA 8.6 MG TAB PO SCH ×2 (09:00→21:33)
[2017-06-06] MEDS ORDERED: [UNRECOGNIZED DRUG - OTHER] PO SCH (09:00)
[2017-06-06] MEDS: SENNOSIDES 8.6 MG TAB PO SCH ×2 (09:00→21:33)
[2017-06-06] MEDS: FERROUS SULFATE 325 MG (65 MG ELEMENTAL IRON) TAB PO SCH ×3 (09:30→17:10)
[2017-06-06 11:27] VITALS: BP 148/92; PULSE 70; RESP 16; TEMP 97.8; O2SAT 99
--- NOTE | 2017-06-06 13:54 | HHI.PR ---
Subjective Remarks The patient was being fed a medication from her nurse. The patient was not very coherent with her speech. She described generalized pain in her lower extremities. Discussed with nursing and KARMEN. Objective Vitals Vital Signs Date Time Temp Pulse Resp B/P (MAP) Pulse Ox O2 Delivery O2 Flow Rate FiO2 06/06/17 11:27 97.8 70 16 148/92 (110) 99 06/06/17 08:53 98.6 70 18 158/79 (105) 95 06/06/17 03:37 98.5 93 18 156/78 (104) 99 06/05/17 23:57 99.3 98 18 166/84 (111) 92 06/05/17 21:33 98.8 83 18 152/72 (98) 94 06/05/17 16:10 99.2 68 20 142/70 (94) 98 I/O 06/05/17 06/05/17 06/05/17 06/06/17 06/06/17 06/06/17 07:00 15:00 23:00 07:00 15:00 23:00 Intake Total 1600 ml 240 ml Balance 1600 ml 240 ml Intake Oral 240 ml IV Total 1600 ml Result Diagram: 06/05/17 0610 06/06/17 0610 Imaging Last Impressions Chest X-Ray 06/05/17 0554 Signed Impressions: Service Date/Time: Monday, June 05, 2017 06:04 - CONCLUSION: No acute disease. Rosales Jay MD Head CT 06/05/17 0000 Signed Impressions: Service Date/Time: Monday, June 05, 2017 06:42 - CONCLUSION: 1. Stable chronic right middle cerebral artery territory infarct. 2. No acute hemorrhage or mass effect. Rosales Jay MD Abdomen/Pelvis CT 06/05/17 0000 Signed Impressions: Service Date/Time: Monday, June 05, 2017 06:47 - CONCLUSION: 1. There is a double-J stent in the right collecting system. There is hydronephrosis of the right collecting system which appears to be mildly increased compared to 2015. 2. There are multiple calcified stones in the right kidney and right renal pelvis. 3. Otherwise, no other significant changes compared to the prior exam from 2014. Yo Joiner MD Objective Remarks GENERAL: No distress. SKIN: No rashes, ecchymoses or lesions. Cool and dry. HEAD: Atraumatic. Normocephalic. No temporal or scalp tenderness. EYES: Pupils equal round and reactive. Extraocular motions intact. No scleral icterus. No injection or drainage. ENT: Nose without bleeding, purulent drainage or septal hematoma. Throat without erythema, tonsillar hypertrophy or exudate. Uvula midline. Airway patent. NECK: Trachea midline. No JVD or lymphadenopathy. Supple, nontender, no meningeal signs. CARDIOVASCULAR: Regular rate and rhythm without murmurs, gallops, or rubs. RESPIRATORY: Clear to auscultation. Breath sounds equal bilaterally. No wheezes , rales, or rhonchi. GASTROINTESTINAL: Abdomen soft, non-tender, nondistended. No hepato-splenomegaly , or palpable masses. No guarding. MUSCULOSKELETAL: Extremities with 2+ edema in the LLE, 1+ edema in the RLE. NEUROLOGICAL: Awake and confused. Medications and IVs Current Medications Medications (Trade) Dose Ordered Sig/Sukhi Route Start Time Stop Time Status Last Admin Sodium Chloride 1,000 ml @ 60 mls/hr [id number] IV 06/05/17 10:43 06/06/17 11:23 (NS Flush) 2 ml UNSCH PRN IV FLUSH 06/05/17 10:45 (NS Flush) 2 ml BID IV FLUSH 06/05/17 21:00 (Zofran Inj) 4 mg Q6H PRN IVP 06/05/17 10:45 (Narcan Inj) 0.4 mg UNSCH PRN IV PUSH 06/05/17 10:45 (Wendi-Colace) 1 tab BID PO 06/05/17 21:00 06/06/17 09:00 (Milk Of Magnesia Liq) 30 ml Q12H PRN PO 06/05/17 10:45 (Lactulose Liq) 30 ml DAILY PRN PO 06/05/17 10:45 Ceftriaxone Sodium 1000 mg/ Sodium Chloride 100 ml @ 200 mls/hr Q24H IV 06/06/17 09:00 06/06/17 09:00 (Tylenol) 650 mg Q4HR PRN PO 06/05/17 21:15 (Norvasc) 10 mg DAILY PO 06/06/17 09:00 06/06/17 09:00 (Dulcolax Supp) 10 mg DAILY PRN RECTAL 06/05/17 21:15 (Ferrous Sulfate) 325 mg TIDPC PO 06/06/17 09:30 06/06/17 13:54 (Neurontin) 100 mg DAILY PO 06/06/17 09:00 06/06/17 09:00 (Apresoline) 50 mg TID PO 06/06/17 09:00 06/06/17 13:54 ([place] 10-325 Mg) 1 tab Q4H PRN PO 06/05/17 21:15 (Levemir Inj) 7 units HS SQ 06/06/17 21:00 (Zyvox) 600 mg Q12H PO 06/05/17 23:00 06/06/17 11:00 (Ativan) 0.5 mg TID PRN PO 06/05/17 21:15 (Mag-Al Plus Susp Liq) 30 ml Q4HR PO 06/06/17 00:00 06/06/17 13:54 (Lopressor) 25 mg BID PO 06/06/17 09:00 06/06/17 09:00 (Theragran M Tab) 1 tab DAILY PO 06/06/17 09:00 06/06/17 09:00 (KCl) 10 meq DAILY PO 06/06/17 09:00 06/06/17 09:00 (risperDAL) 0.5 mg TID PO 06/06/17 09:00 06/06/17 13:54 (Senokot) 8.6 mg BID PO 06/06/17 09:00 06/06/17 09:00 (Zoloft) 50 mg DAILY PO 06/06/17 09:00 06/06/17 09:00 (Aldactone) 25 mg DAILY PO 06/06/17 09:00 06/06/17 09:00 (Imodium) 4 mg UNSCH X1 PRN PO 06/05/17 21:15 06/12/17 21:14 (Protonix) 20 mg DAILY PO 06/06/17 09:00 06/06/17 09:00 A/P Assessment and Plan 61-year-old female with history of CVA, kidney stones with recent nephrostomy tube placement, UTI. Acute on chronic renal insufficiency CT abdomen pelvis reviewed, shows calculus, nephrostomy tube displaced. Urology consult appreciated. Creatinine currently stable. - Consult IR to replace nephrostomy tube. The pt medically needs the nephrostomy tube placed to prevent worsening of her medical condition. FIDELINA Rolon agrees with medical necessity of nephrostomy tube placement. - NPO with IVFs. - IR to place nephrostomy tube. - urology following. - d/c IVFs. UTI/ Leukocytosis Has a history of ESBL. - Blood cultures, urine cultures pending. - continue PO linezolid. Start IV ceftriaxone. - consider ID consult. - repeat CBC. Altered mental status Multifactorial. Has a history of CVA with left-sided hemiparesis. - treat infection as above. - resume home meds. Hold unnecessary sedating meds. - PT/ OT. History of A. fib Currently sinus rhythm. Patient used to be on Xarelto, no longer on anticoagulation due to hematuria. - Continue beta brayan. Monitor DVT ppx SCD.TEDs consider chemical ppx after nephrostomy tube placement Discharge Planning Awaiting nephrostomy tube placement Rosales Lucero DO Jun 06, 2017 13:54
[2017-06-06] MEDS ORDERED: LORazepam 0.5 MG TAB PO PRN (14:15)
[2017-06-06] MEDS ORDERED: GLUCAGON 1 MG/ML VIAL OTHER PRN (14:45)
[2017-06-06] MEDS ORDERED: DEXTROSE 50% IN WATER 50 ML VIAL(D50) IV PUSH PRN (14:45)
[2017-06-06 16:00] LABS: AUTOMATED NEUTROPHIL # 7.3 TH/MM3 (1.8-7.7); BASOPHIL # 0.1 TH/MM3 (0-0.2); BASOPHIL % 0.8 % (0.0-2.0); EOSINOPHIL # 0.3 TH/MM3 (0-0.4); EOSINOPHIL % 2.9 % (0.0-4.0); HEMATOCRIT 31.8 % (35.0-46.0); HEMO FLAGS DIFF FINAL; LYMPH % 17.4 % (9.0-44.0); LYMPHOCYTE # 1.7 TH/MM3 (1.0-4.8); MEAN CELL VOLUME 85.8 FL (80.0-100.0); MEAN CORPUSCULAR HGB CONC 32.7 % (32.0-36.0); MONO % 3.7 % (0.0-8.0); NEUT % 75.2 % (16.0-70.0); PLATELET COUNT 223 TH/MM3 (150-450); RED CELL DISTRIBUTION WIDTH 14.8 % (11.6-17.2); WHITE BLOOD COUNT 9.7 TH/MM3 (4.0-11.0)
[2017-06-06 16:07] LABS: APTT (PATIENT) 31.6 SEC (24.3-30.1); PROTHROMBIN TIME - PATIENT 10.5 SEC (9.8-11.6)
[2017-06-06 16:09] VITALS: BP 146/77; PULSE 68; RESP 16; TEMP 98.1; O2SAT 99
[2017-06-06] MEDS: INSULIN ASPART SUPPLEMENTAL SCALE SQ SCH ×2 (17:00→20:28)
[2017-06-06 20:36] VITALS: BP 153/69; PULSE 77; RESP 18; TEMP 98.8; O2SAT 95
[2017-06-06] MEDS: INSULIN DETEMIR 100 UNITS/ML VIAL SQ SCH (21:33)
[2017-06-07] VITALS (8 sets, daily range): BP systolic 135–146; BP diastolic 71–84; PULSE 54–71; RESP 17–19; TEMP 97.8–99.1; O2SAT 97–99
[2017-06-07] MEDS: ALUMINUM/MAGNESIUM/SIMETH 30 ML CUP PO SCH ×7 (05:32→23:29)
[2017-06-07] MEDS: INSULIN ASPART SUPPLEMENTAL SCALE SQ SCH ×4 (07:30→21:00)
[2017-06-07] MEDS ORDERED: MIDAZOLAM HCL 2 MG/2 ML VIAL ONE (08:04)
--- NOTE | 2017-06-07 10:39 | RADRPT ---
EXAM DATE/TIME: 06/07/2017 09:22 [facility] COMPARISON: NEPHROSTOMY, RIGHT, April 09, 2017, 17:00. INDICATIONS : Patient with history of prior nephrostomy catheter, accidentally removed approximately 2.5 days ago. Attempted catheter replacement through existing tract or new percutaneous access has been requested. MEDICAL HISTORY : CVA, CAD, HTN, A-Fib, HLD, Diabetes, Carotid stenosis, Severe sepsis, Kidney stones, Anemia, Tachycar cely SURGICAL HISTORY : Cardiac stent, Hysterectomy, Urinary stent ENCOUNTER: Subsequent ACUITY: 2 months PAIN SCORE: Non-responsive FLUORO TIME: 1.5 minutes IMAGE SERIES: 0 SEDATION TIME: 15 minutes CONTRAST: 15 cc Omnipaque (iohexol) 350 MEDICATION(S): 1.) 2 mg midazolam (Versed) IV 2.) 100 mcg fentanyl (Sublimaze) IV DEVICE(S): 1.) 8 [place] [id number] Expel nephrostomy catheter PROCEDURE : 1. Ultrasound-guided puncture of the kidney. 2. Placement of new per cutaneous nephrostomy catheter through existing tract 4. Conscious sedation with continuous EKG and oximetry monitoring. The risks, benefits and alternatives to the procedure were explained and verbal and written consent w as obtained. The site was prepped in sterile fashion. Full sterile technique was used, including ca p, mask, sterile gloves and gown and a large sterile sheet. Hand hygiene and 2% chlorhexidine and/or betadine/alcohol prep was utilized per protocol for cutaneous antisepsis. Sterile gel and sterile probe cover were utilized for ultrasound guidance. The skin and subcutaneous tissues were infiltrate d with local anesthetic solution. 4 [place] dilator was advanced through the existing tract and a Glidewire the following multiple attem pts was successfully advanced into the renal collecting system. Position was confirmed a small amount of contrast. Next, tract was dilated and a new 8 [place] catheter was advanced over the wire and form ed into position. Catheter was then secured to the skin with suture. Conscious sedation was performed with the prescribed dosages and duration as above in the presence of an independent trained radiology nurse to assist in the monitoring of the patient. EKG and oximetry remained stable throughout the procedure. The patient tolerated the procedure well and there were n o complications. The patient was sent to post anesthesia recovery in stable condition. CONCLUSION: 1. Technically successful placement of new nephrostomy catheter through existing percutaneous tract. Jadon Canales MD on June 07, 2017 at 9:17 Board Certified Radiologist. This report was verified electronically.
[2017-06-07] MEDS: cefTRIAXone INJ 1,000 MG in SODIUM CHLORIDE 0.9% INJ 100 ML IV SCH (10:41)
[2017-06-07] MEDS: SODIUM CHLORIDE 0.9% FLUSH 10 ML FLUSH IV FLUSH SCH ×2 (10:42→21:14)
[2017-06-07] MEDS ORDERED: MISCELLANEOUS PHARMACY INFORMATION XX PRN (12:00)
[2017-06-07] MEDS ORDERED: ASP: ID consult, note reason in consult order PRN (12:00)
--- NOTE | 2017-06-07 12:07 | HHI.PR ---
Subjective Remarks The patient was resting comfortably following nephrostomy tube placement. She had no acute complaints at this time. Objective Vitals Vital Signs Date Time Temp Pulse Resp B/P (MAP) Pulse Ox O2 Delivery O2 Flow Rate FiO2 06/07/17 09:45 56 17 137/74 (95) 98 06/07/17 09:15 54 18 139/71 (93) 98 06/07/17 09:00 97.8 58 17 139/75 (96) 97 06/07/17 03:19 98.1 64 18 146/84 (104) 97 06/07/17 00:15 98.4 71 18 136/78 (97) 98 06/06/17 20:36 98.8 77 18 153/69 (97) 95 06/06/17 16:09 98.1 68 16 146/77 (100) 99 I/O 06/06/17 06/06/17 06/06/17 06/07/17 06/07/17 06/07/17 07:00 15:00 23:00 07:00 15:00 23:00 Output Total 2000 ml 700 ml Balance -2000 ml -700 ml Output Urine Total 2000 ml 700 ml Result Diagram: 06/06/17 1515 06/06/17 0610 Imaging Last Impressions Nephrostomy 06/07/17 0000 Signed Impressions: Service Date/Time: Wednesday, June 07, 2017 09:22 - CONCLUSION: 1. Technically successful placement of new nephrostomy catheter through existing percutaneous tract. Jadon Canales MD Chest X-Ray 06/05/17 0554 Signed Impressions: Service Date/Time: Monday, June 05, 2017 06:04 - CONCLUSION: No acute disease. Rosales Jay MD Head CT 06/05/17 0000 Signed Impressions: Service Date/Time: Monday, June 05, 2017 06:42 - CONCLUSION: 1. Stable chronic right middle cerebral artery territory infarct. 2. No acute hemorrhage or mass effect. Rosales Jay MD Abdomen/Pelvis CT 06/05/17 0000 Signed Impressions: Service Date/Time: Monday, June 05, 2017 06:47 - CONCLUSION: 1. There is a double-J stent in the right collecting system. There is hydronephrosis of the right collecting system which appears to be mildly increased compared to 2015. 2. There are multiple calcified stones in the right kidney and right renal pelvis. 3. Otherwise, no other significant changes compared to the prior exam from 2015. Yo Joiner MD Objective Remarks GENERAL: No distress. SKIN: No rashes, ecchymoses or lesions. Cool and dry. HEAD: Atraumatic. Normocephalic. No temporal or scalp tenderness. EYES: Pupils equal round and reactive. Extraocular motions intact. No scleral icterus. No injection or drainage. ENT: Nose without bleeding, purulent drainage or septal hematoma. Throat without erythema, tonsillar hypertrophy or exudate. Uvula midline. Airway patent. NECK: Trachea midline. No JVD or lymphadenopathy. Supple, nontender, no meningeal signs. CARDIOVASCULAR: Regular rate and rhythm without murmurs, gallops, or rubs. RESPIRATORY: Clear to auscultation. Breath sounds equal bilaterally. No wheezes , rales, or rhonchi. GASTROINTESTINAL: Abdomen soft, non-tender, nondistended. No hepato-splenomegaly , or palpable masses. No guarding. MUSCULOSKELETAL: Extremities with 1+ edema in the LEs. Nephrostomy tube on the right. NEUROLOGICAL: No gross deficits. Procedures Nephrostomy tube placement Medications and IVs Current Medications Medications (Trade) Dose Ordered Sig/Sukhi Route Start Time Stop Time Status Last Admin (NS Flush) 2 ml UNSCH PRN IV FLUSH 06/05/17 10:45 (NS Flush) 2 ml BID IV FLUSH 06/05/17 21:00 06/07/17 10:42 (Zofran Inj) 4 mg Q6H PRN IVP 06/05/17 10:45 (Narcan Inj) 0.4 mg UNSCH PRN IV PUSH 06/05/17 10:45 (Wendi-Colace) 1 tab BID PO 06/05/17 21:00 06/06/17 21:33 (Milk Of Magnesia Liq) 30 ml Q12H PRN PO 06/05/17 10:45 (Lactulose Liq) 30 ml DAILY PRN PO 06/05/17 10:45 (Tylenol) 650 mg Q4HR PRN PO 06/05/17 21:15 (Norvasc) 10 mg DAILY PO 06/06/17 09:00 06/06/17 09:00 (Dulcolax Supp) 10 mg DAILY PRN RECTAL 06/05/17 21:15 (Ferrous Sulfate) 325 mg TIDPC PO 06/06/17 09:30 06/06/17 17:10 (Neurontin) 100 mg DAILY PO 06/06/17 09:00 06/06/17 09:00 (Apresoline) 50 mg TID PO 06/06/17 09:00 06/06/17 17:10 ([place] 10-325 Mg) 1 tab Q4H PRN PO 06/05/17 21:15 (Levemir Inj) 7 units HS SQ 06/06/17 21:00 06/06/17 21:33 (Zyvox) 600 mg Q12H PO 06/05/17 23:00 06/06/17 21:33 (Mag-Al Plus Susp Liq) 30 ml Q4HR PO 06/06/17 00:00 06/07/17 05:32 (Lopressor) 25 mg BID PO 06/06/17 09:00 06/06/17 21:33 (Theragran M Tab) 1 tab DAILY PO 06/06/17 09:00 06/06/17 09:00 (KCl) 10 meq DAILY PO 06/06/17 09:00 06/06/17 09:00 (risperDAL) 0.5 mg TID PO 06/06/17 09:00 06/06/17 17:10 (Senokot) 8.6 mg BID PO 06/06/17 09:00 06/06/17 21:33 (Zoloft) 50 mg DAILY PO 06/06/17 09:00 06/06/17 09:00 (Aldactone) 25 mg DAILY PO 06/06/17 09:00 06/06/17 09:00 (Imodium) 4 mg UNSCH X1 PRN PO 06/05/17 21:15 06/12/17 21:14 (Protonix) 20 mg DAILY PO 06/06/17 09:00 06/06/17 09:00 (Ativan) 0.5 mg DAILY PRN PO 06/06/17 14:15 (NovoLOG SUPPLEMENTAL SCALE) 1 ACHS SLIDING SCALE SQ 06/06/17 17:00 (D50w (Vial) Inj) 50 ml UNSCH PRN IV PUSH 06/06/17 14:45 (Glucagon Inj) 1 mg UNSCH PRN OTHER 06/06/17 14:45 (ASP Crit: Infectious disease consult) 1 UNSCH X1 PRN XX 06/07/17 12:00 06/08/17 11:59 UNV ([facility] 1 UNSCH X1 PRN XX 06/07/17 12:00 06/08/17 11:59 UNV Ertapenem 1000 mg/ Sodium Chloride 100 ml @ 200 mls/hr Q24H IV 06/07/17 12:00 UNV A/P Assessment and Plan 61-year-old female with history of CVA, kidney stones with recent nephrostomy tube placement, UTI. Acute on chronic renal insufficiency CT abdomen pelvis reviewed, shows calculus, nephrostomy tube displaced. Urology consult appreciated. Creatinine currently stable. S/p nephrostomy tube replacement by IR. - urology following. - d/c IVFs. - follow BMP and avoid nephrotoxic agents. UTI/ Leukocytosis Has a history of ESBL. Urine culture growing ESBL. - Blood cultures pending. - continue PO linezolid. D/c IV ceftriaxone. Start IV ertapenem. - ID consult placed. - repeat CBC. Altered mental status Multifactorial. Has a history of CVA with left-sided hemiparesis. - treat infection as above. - resume home meds. Hold unnecessary sedating meds. - PT/ OT. History of A. fib Currently sinus rhythm. Patient used to be on Xarelto, no longer on anticoagulation due to hematuria. - Continue beta brayan. Monitor DVT ppx: Heparin Discharge Planning Awaiting ID consult Rosales Lucero DO Jun 07, 2017 12:07
[2017-06-07] MEDS: risperiDONE 0.5 MG TAB PO SCH ×3 (13:00→21:13)
[2017-06-07] MEDS: hydrALAZINE HCL 100 MG TAB PO SCH ×3 (13:00→18:00)
[2017-06-07] MEDS: FERROUS SULFATE 325 MG (65 MG ELEMENTAL IRON) TAB PO SCH ×3 (13:30→18:23)
[2017-06-07 13:40] LABS: HEMATOCRIT 33.8 % (35.0-46.0); MEAN CORPUSCULAR HEMOGLOBIN 28.3 PG (27.0-34.0); MEAN CORPUSCULAR HGB CONC 32.6 % (32.0-36.0); PLATELET COUNT 214 TH/MM3 (150-450); RED BLOOD COUNT 3.89 MIL/MM3 (4.00-5.30); RED CELL DISTRIBUTION WIDTH 14.8 % (11.6-17.2); REVIEW FLAG FINAL; WHITE BLOOD COUNT 9.1 TH/MM3 (4.0-11.0)
[2017-06-07] MEDS: SPIRONOLACTONE 25 MG TAB PO SCH (13:41)
[2017-06-07] MEDS: METOPROLOL TARTRATE 25 MG TAB PO SCH ×2 (13:42→21:13)
[2017-06-07] MEDS: PANTOPRAZOLE SOD 20 MG DELAYED RELEASE TAB PO SCH (13:42)
[2017-06-07] MEDS: POTASSIUM CHLORIDE 10 MEQ CAP PO SCH (13:43)
[2017-06-07] MEDS: MULTIVITAMINS/MINERALS THERAPEUTIC TAB PO SCH (13:43)
[2017-06-07] MEDS: SENNOSIDES 8.6 MG TAB PO SCH ×2 (13:43→21:13)
[2017-06-07 13:44] LABS: BICARBONATE 24.8 MEQ/L (21.0-32.0); MAGNESIUM 2.4 MG/DL (1.5-2.5)
[2017-06-07] MEDS: SERTRALINE HCL 50 MG TAB PO SCH (13:44)
[2017-06-07] MEDS: DOCUSATE SODIUM 50 MG/SENNA 8.6 MG TAB PO SCH ×2 (13:44→21:13)
[2017-06-07] MEDS: LINEZOLID 600 MG TAB PO SCH ×2 (13:44→22:13)
[2017-06-07] MEDS: GABAPENTIN 100 MG CAP PO SCH (13:44)
[2017-06-07 13:49] LABS: POTASSIUM 4.6 MEQ/L (3.5-5.1)
[2017-06-07] MEDS: ERTAPENEM INJ 1,000 MG in SODIUM CHLORIDE 0.9% INJ 100 ML IV SCH (16:01)
--- NOTE | 2017-06-07 18:05 | PD.ID.CON ---
History of Present Illness Service ID Consult Requested By Dr Lucero Reason for Consult ESBL + E.coli UTI Primary Care Physician Nii Stone M.D. Diagnoses: History of Present Illness 61 yo female with history of stroke resulting in left-sided hemiparesis as well as schizophrenia, diabetes as well as history of nephrolithiasis with an indwelling right ureteral stent in place. It is unclear when this stent was placed. Pt has a indwelling Rebolledo catheter. After coming to the ER at the registration patient suddenly became unresponsive. Pt was evaluated by urologist , found to have dislodged left nephrostomy tube. IR replaced it today Urine clx + for ESBL + E.coli Pt was switched from CFTX to Ertapenem At presentation pt had substantial leukocytosis of 15 K and worsening renal function Her creatinine is going down Blood clx are negative @ 2 days Review of Systems ROS Limitations: Clinical Condition, Altered Mental Status, Poor Historian Past Family Social History Allergies: Coded Allergies: *MDRO Multi-Drug Resistant Organism (Verified Adverse Reaction, Unknown, 06/05/17) 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 ESBL + E. 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 Past Medical History CVA with left-sided hemiparesis, bipolar, schizophrenia, depression and anxiety , CAD, hypertension, atrial fibrillation on Xarelto, hyperlipidemia, diabetes mellitus, osteoarthritis, decubitus ulcer on heel and sacral area chronic, history of carotid stenosis and recently hospitalized March 2015 for severe sepsis History kidney stones, hematuria. History of ESBL infection Past Surgical History Hysterectomy, cardiac stent RCA and LAD, tonsillectomy, ORIF left hip, dental extractions, placement of urinary stent, placement nephrostomy tube Active Ordered Medications Medications where reviewed in EMR Antibiotics Include: Ertapenem Family History reviewed non contributory Social History No report of EtOH use, tobacco use or illicit drug use. Physical Exam Vital Signs Vital Signs Date Time Temp Pulse Resp B/P (MAP) Pulse Ox O2 Delivery O2 Flow Rate FiO2 06/07/17 13:33 99.1 66 18 135/74 (94) 06/07/17 09:45 56 17 137/74 (95) 98 06/07/17 09:15 54 18 139/71 (93) 98 06/07/17 09:00 97.8 58 17 139/75 (96) 97 06/07/17 03:19 98.1 64 18 146/84 (104) 97 06/07/17 00:15 98.4 71 18 136/78 (97) 98 06/06/17 20:36 98.8 77 18 153/69 (97) 95 Physical Exam CONSTITUTIONAL/GENERAL: This is an obese elderly female patient, in no apparent distress. TUBES/LINES/DRAINS: SKIN: No jaundice, rashes, or lesions. Ecchymoses on upper extremities. No wounds seen anteriorly. Skin temperature appropriate. Not diaphoretic. HEAD: Atraumatic. Normocephalic. EYES: Pupils equal and round and reactive. Extraocular motions intact. No scleral icterus. No injection or drainage. Fundi not examined. ENT: Hearing grossly normal. Nose without bleeding or purulent drainage. Throat without visible erythema, exudates, masses, or lesions. NECK: Trachea midline. Supple, nontender. CARDIOVASCULAR: Regular rate and rhythm without murmurs, gallops, or rubs. No JVD. Peripheral pulses symmetric. RESPIRATORY/CHEST: Symmetric, unlabored respirations. Clear to auscultation. Breath sounds equal bilaterally. No wheezes, rales, or rhonchi. GASTROINTESTINAL: Abdomen soft, non-tender, nondistended. No hepato-splenomegaly , or palpable masses. No guarding. Bowel sounds present. GENITOURINARY: Without palpable bladder distension. Rebolledo catheter in place with cloudy urine R nephrostomy in place with faily clear urine MUSCULOSKELETAL: Extremities without clubbing, cyanosis, or edema. No joint tenderness or effusion noted. No calf tenderness. No mottling or clubbing. LYMPHATICS: No palpable cervical or supraclavicular adenopathy. NEUROLOGICAL: Awake and alert. Very confuse d. Orineted x 1 only. Motor and sensory grossly within normal limits. Follows commands. Incoherent speech. Moves all extremities. PSYCHIATRIC: Flat affect Laboratory Laboratory Tests Test 06/07/17 12:58 White Blood Count 9.1 Red Blood Count 3.89 Hemoglobin 11.0 Hematocrit 33.8 Mean Corpuscular Volume 87.0 Mean Corpuscular Hemoglobin 28.3 Mean Corpuscular Hemoglobin Concent 32.6 Red Cell Distribution Width 14.8 Platelet Count 214 Mean Platelet Volume 8.6 Blood Urea Nitrogen 24 Creatinine 1.76 Random Glucose 82 Calcium Level 9.5 Magnesium Level 2.4 Sodium Level 138 Potassium Level 4.6 Chloride Level 108 Carbon Dioxide Level 24.8 Anion Gap 5 Estimat Glomerular Filtration Rate 29 Date/Time Source Procedure Growth Status 06/05/17 06:10 Blood Peripheral Aerobic Blood Culture - Preliminary NO GROWTH IN 2 DAYS Resulted 06/05/17 06:10 Blood Peripheral Anaerobic Blood Culture - Preliminary NO GROWTH IN 2 DAYS Resulted 06/05/17 06:05 Urine Catheterized Urine Urine Culture - Final Escherichia Coli Esbl Positive Complete Result Diagram: 06/07/17 1258 06/07/17 1258 Imaging Last Impressions Nephrostomy 06/07/17 0000 Signed Impressions: Service Date/Time: Wednesday, June 07, 2017 09:22 - CONCLUSION: 1. Technically successful placement of new nephrostomy catheter through existing percutaneous tract. Jadon Canales MD Chest X-Ray 06/05/17 0554 Signed Impressions: Service Date/Time: Monday, June 05, 2017 06:04 - CONCLUSION: No acute disease. Rosales Jay MD Head CT 06/05/17 0000 Signed Impressions: Service Date/Time: Monday, June 05, 2017 06:42 - CONCLUSION: 1. Stable chronic right middle cerebral artery territory infarct. 2. No acute hemorrhage or mass effect. Rosales Jay MD Abdomen/Pelvis CT 06/05/17 0000 Signed Impressions: Service Date/Time: Monday, June 05, 2017 06:47 - CONCLUSION: 1. There is a double-J stent in the right collecting system. There is hydronephrosis of the right collecting system which appears to be mildly increased compared to 2015. 2. There are multiple calcified stones in the right kidney and right renal pelvis. 3. Otherwise, no other significant changes compared to the prior exam from 2014. Yo Joiner MD Assessment and Plan Assessment and Plan Complicate ESBL+ E.coli UTI in pt with R sided nephrostomy Leukocytosis - clinciallly improved Sp new nephrostomy placement Ertapenem x 2 weeks (ASP: no reliable sensitivity to other abx, including R to FQ and bactrim) PICC Jana Sweeney MD Jun 07, 2017 18:05
[2017-06-07] MEDS: INSULIN DETEMIR 100 UNITS/ML VIAL SQ SCH (21:00)
[2017-06-07] MEDS: ACETAMINOPHEN/HYDROcodone 325 MG/10 MG TAB PO PRN (21:14)
[2017-06-08] VITALS: BP 95/58; PULSE 60; RESP 18; TEMP 97.5; O2SAT 99
[2017-06-08] MEDS: ALUMINUM/MAGNESIUM/SIMETH 30 ML CUP PO SCH ×2 (04:00→08:54)
[2017-06-08 06:43] LABS: BICARBONATE 20.1 MEQ/L (21.0-32.0); MAGNESIUM 2.2 MG/DL (1.5-2.5); MEAN CELL VOLUME 90.4 FL (80.0-100.0); MEAN CORPUSCULAR HEMOGLOBIN 28.7 PG (27.0-34.0); MEAN CORPUSCULAR HGB CONC 31.7 % (32.0-36.0); PLATELET COUNT 175 TH/MM3 (150-450); POTASSIUM 4.5 MEQ/L (3.5-5.1); RED BLOOD COUNT 3.31 MIL/MM3 (4.00-5.30); REVIEW FLAG FINAL; WHITE BLOOD COUNT 7.8 TH/MM3 (4.0-11.0)
[2017-06-08 08:00] VITALS: BP 139/69; PULSE 61; RESP 15; TEMP 96.8; O2SAT 98
[2017-06-08] MEDS: INSULIN ASPART SUPPLEMENTAL SCALE SQ SCH ×4 (08:53→19:40)
[2017-06-08] MEDS: hydrALAZINE HCL 100 MG TAB PO SCH ×3 (08:54→17:43)
[2017-06-08] MEDS: risperiDONE 0.5 MG TAB PO SCH ×3 (08:54→17:43)
[2017-06-08] MEDS: SPIRONOLACTONE 25 MG TAB PO SCH (08:55)
[2017-06-08] MEDS: MULTIVITAMINS/MINERALS THERAPEUTIC TAB PO SCH (08:56)
[2017-06-08] MEDS: PANTOPRAZOLE SOD 20 MG DELAYED RELEASE TAB PO SCH (08:56)
[2017-06-08] MEDS: METOPROLOL TARTRATE 25 MG TAB PO SCH ×2 (08:56→19:38)
[2017-06-08] MEDS: FERROUS SULFATE 325 MG (65 MG ELEMENTAL IRON) TAB PO SCH ×3 (08:56→17:43)
[2017-06-08] MEDS: GABAPENTIN 100 MG CAP PO SCH (08:56)
[2017-06-08] MEDS: DOCUSATE SODIUM 50 MG/SENNA 8.6 MG TAB PO SCH ×2 (08:56→19:38)
[2017-06-08] MEDS: SENNOSIDES 8.6 MG TAB PO SCH (08:56)
[2017-06-08] MEDS: POTASSIUM CHLORIDE 10 MEQ CAP PO SCH (08:57)
[2017-06-08] MEDS: SODIUM CHLORIDE 0.9% FLUSH 10 ML FLUSH IV FLUSH SCH ×2 (08:58→19:38)
[2017-06-08] MEDS: LINEZOLID 600 MG TAB PO SCH (09:02)
[2017-06-08] MEDS: ACETAMINOPHEN/HYDROcodone 325 MG/10 MG TAB PO PRN (11:30)
[2017-06-08 12:00] VITALS: BP 128/83; PULSE 62; RESP 17; TEMP 97.9; O2SAT 98
[2017-06-08] MEDS ORDERED: SODIUM CHLOR 0.9% 1000 ML INJ 1,000 ML IV SCH (12:30)
[2017-06-08] MEDS: ERTAPENEM INJ 1,000 MG in SODIUM CHLORIDE 0.9% INJ 100 ML IV SCH (14:22)
--- NOTE | 2017-06-08 14:39 | HHI.PR ---
Subjective Remarks Follow-up complicated UTI. Complains of back pain when she has a nephrostomy tube. Discussed with RN, patient states she has chronic indwelling catheter. We will exchange Objective Vitals Vital Signs Date Time Temp Pulse Resp B/P (MAP) Pulse Ox O2 Delivery O2 Flow Rate FiO2 06/08/17 12:00 97.9 62 17 128/83 (98) 98 06/08/17 08:00 96.8 61 15 139/69 (92) 98 06/08/17 00:00 97.5 60 18 95/58 (70) 99 06/07/17 20:00 Nasal Cannula 2.00 06/07/17 20:00 97.9 62 19 140/82 (101) 98 06/07/17 17:59 98.3 63 18 145/71 (95) 99 I/O 06/07/17 06/07/17 06/07/17 06/08/17 06/08/17 06/08/17 07:00 15:00 23:00 07:00 15:00 23:00 Intake Total 0 ml 180 ml Output Total 700 ml 300 ml 200 ml 1350 ml Balance -700 ml -300 ml -200 ml -1170 ml Intake Oral 180 ml IV Total 0 ml Output Urine Total 700 ml 200 ml 100 ml Drainage Total 300 ml 1250 ml # Bowel Movements 1 Result Diagram: 06/08/1729 06/08/1729 Imaging Last Impressions Nephrostomy 06/07/17 0000 Signed Impressions: Service Date/Time: Wednesday, June 07, 2017 09:22 - CONCLUSION: 1. Technically successful placement of new nephrostomy catheter through existing percutaneous tract. Jadon Canales MD Chest X-Ray 06/05/17 0554 Signed Impressions: Service Date/Time: Monday, June 05, 2017 06:04 - CONCLUSION: No acute disease. Rosales Jay MD Head CT 06/05/17 0000 Signed Impressions: Service Date/Time: Monday, June 05, 2017 06:42 - CONCLUSION: 1. Stable chronic right middle cerebral artery territory infarct. 2. No acute hemorrhage or mass effect. Rosales Jay MD Abdomen/Pelvis CT 06/05/17 0000 Signed Impressions: Service Date/Time: Monday, June 05, 2017 06:47 - CONCLUSION: 1. There is a double-J stent in the right collecting system. There is hydronephrosis of the right collecting system which appears to be mildly increased compared to 2015. 2. There are multiple calcified stones in the right kidney and right renal pelvis. 3. Otherwise, no other significant changes compared to the prior exam from 2015. Yo Joiner MD Objective Remarks GENERAL: No distress. Well-developed and well-nourished SKIN: No rashes, ecchymoses or lesions. Cool and dry. CARDIOVASCULAR: Regular rate and rhythm without murmurs, gallops, or rubs. RESPIRATORY: Clear to auscultation. Breath sounds equal bilaterally. No wheezes , rales, or rhonchi. GASTROINTESTINAL: Abdomen soft, non-tender, nondistended. No guarding. MUSCULOSKELETAL: Extremities with 1+ edema in the LEs. Nephrostomy tube on the right. NEUROLOGICAL: Awake with chronic left-sided weakness Procedures Nephrostomy tube placement A/P Problem List: (1) UTI (urinary tract infection) ICD Code: N39.0 - Urinary tract infection, site not specified Status: Acute (2) History of CVA with residual deficit ICD Code: I69.30 - Unspecified sequelae of cerebral infarction Status: Chronic Assessment and Plan 61-year-old female with history of CVA, kidney stones with recent nephrostomy tube placement, UTI. Acute on chronic kidney disease stage CT abdomen pelvis reviewed, shows calculus, nephrostomy tube displaced. Urology consult appreciated. Creatinine slightly worse. S/p nephrostomy tube replacement by IR. - urology following. - Gentle IV hydration until tonight. - follow BMP and avoid nephrotoxic agents. Discontinue Aldactone UTI/ Leukocytosis Has a history of ESBL. Urine culture growing ESBL. - Blood cultures negative to date -Status post linezolid. D/c IV ceftriaxone. Continue IV ertapenem. - ID recommended 2 weeks of IV ertapenem via PICC line Altered mental status resolved, patient awake and answering questions appropriately and following simple commands Multifactorial. Has a history of CVA with left-sided hemiparesis. - treat infection as above. - resume home meds. Hold unnecessary sedating meds. - PT/ OT. History of A. fib Currently sinus rhythm. Patient used to be on Xarelto, no longer on anticoagulation due to hematuria. - Continue beta brayan. Monitor DVT ppx: Heparin Problem Qualifiers (1) UTI (urinary tract infection): Qualified Codes: N39.0 - Urinary tract infection, site not specified Sid Singh MD Jun 08, 2017 14:39
[2017-06-08] MEDS ORDERED: HYDR-3583 PO (14:45)
[2017-06-08] MEDS ORDERED: LORA-392 PO (14:45)
--- NOTE | 2017-06-08 14:46 | HHI.DCPOC ---
Discharge Care Plan Diagnosis: (1) UTI (urinary tract infection) Your Health Problems Are: Difficulty with ADL Exercise Tolerance Goals to Promote Your Health * To prevent worsening of your condition and complications * To maintain your health at the optimal level Directions to Meet Your Goals Take your medications as prescribed Follow your dietary instruction Follow activity as directed Keep your appointments as scheduled Take your immunizations and boosters as scheduled If your symptoms worsen call your PCP, if no PCP go to Urgent Care Center or Emergency Room Smoking is Dangerous to Your Health. Avoid second hand smoke Call the 24-hour hour crisis hotline for domestic abuse at Sid Singh MD Jun 08, 2017 14:46
[2017-06-08 16:00] VITALS: BP 116/65; PULSE 78; RESP 16; TEMP 98.3; O2SAT 97
[2017-06-08] MEDS: HEPARIN SODIUM - SQ 10,000 UNITS/ML VIAL SQ SCH (19:38)
[2017-06-08] MEDS: INSULIN DETEMIR 100 UNITS/ML VIAL SQ SCH (19:38)
[2017-06-08 20:02] VITALS: BP 121/67; PULSE 72; RESP 17; TEMP 98.7; O2SAT 99
--- NOTE | 2017-06-08 20:11 | HHI.FF ---
Infusion Therapy Location of Infusion Therapy: [facility] Infusion Therapy Order Patient Information Patient Weight 88.2 kg Diagnosis: Diagnosis UTI Coded Allergies: *MDRO Multi-Drug Resistant Organism (Verified Adverse Reaction, Unknown, 06/05/17) 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 ESBL + E. 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 [] May leave port accessed during therapy. [] May leave peripheral site accessed for duration of therapy. [x] If patient has SOB or respiratory distress, check oxygen saturation. If less than 90% or clinical signs of respiratory distress, administer oxygen at 2 L/min. via nasal cannula and notify physician. [x] Anaphylaxis/Reaction orders: * Stop infusion. * Keep IV line open with saline flush. * Notify physician. * Monitor vital signs every 15 minutes until symptoms resolve. * Check Oxygen saturation; Oxygen at 2 L/min. via nasal cannula if less than 90% or clinical signs of respiratory distress. * Administer diphenhydramine (Benadryl) 25 mg IV STAT, (unless patient has received as pre-med). May repeat once, if necessary. * Solu-Cortef 250 mg IVP over 30-60 seconds, use 100 mg vials for each dissolution. * Epinephrine (1mg/1 ml) 0.3 mg subcutaneously or IVP now with any signs of respiratory distress. * Check with physician for new additional pre-med orders if patient is re- challenged or re-treated. [x] May remove PICC line when treatment complete, after confirming with Physician. [x] If the patient is admitted to the hospital, the ED, or transferred via [facility] , complete transfer form including medication reconciliation order sheet. Laboratory Tests Weekly Labs: CBC w/diff, Creatinine Jana Sweeney MD Jun 08, 2017 20:11
[2017-06-08] MEDS ORDERED: INVA1INJ IV (20:12)
[2017-06-08] MEDS ORDERED: SOLU250I IV PUSH (20:12)
[2017-06-08] MEDS ORDERED: EPIN1INJ21 SQ (20:12)
[2017-06-08] MEDS ORDERED: EPIN1INJ21 IV PUSH (20:12)
[2017-06-08 23:53] VITALS: BP 128/61; PULSE 75; RESP 18; TEMP 96.8; O2SAT 95
[2017-06-09 08:00] VITALS: BP 152/76; PULSE 71; RESP 15; TEMP 97.9; O2SAT 98
[2017-06-09] MEDS: INSULIN ASPART SUPPLEMENTAL SCALE SQ SCH ×4 (08:00→19:45)
[2017-06-09 08:28] LABS: AUTOMATED NEUTROPHIL # 5.6 TH/MM3 (1.8-7.7); BASOPHIL # 0.1 TH/MM3 (0-0.2); BASOPHIL % 0.7 % (0.0-2.0); EOSINOPHIL # 0.2 TH/MM3 (0-0.4); EOSINOPHIL % 2.8 % (0.0-4.0); HEMATOCRIT 28.1 % (35.0-46.0); HEMO FLAGS DIFF FINAL; LYMPH % 17.8 % (9.0-44.0); LYMPHOCYTE # 1.4 TH/MM3 (1.0-4.8); MEAN CELL VOLUME 86.9 FL (80.0-100.0); MEAN CORPUSCULAR HEMOGLOBIN 28.1 PG (27.0-34.0); MEAN CORPUSCULAR HGB CONC 32.4 % (32.0-36.0); MONO % 7.9 % (0.0-8.0); NEUT % 70.8 % (16.0-70.0); PLATELET COUNT 178 TH/MM3 (150-450); RED BLOOD COUNT 3.23 MIL/MM3 (4.00-5.30); RED CELL DISTRIBUTION WIDTH 14.8 % (11.6-17.2); WHITE BLOOD COUNT 7.9 TH/MM3 (4.0-11.0)
[2017-06-09 08:50] LABS: BICARBONATE 25.6 MEQ/L (21.0-32.0); MAGNESIUM 2.2 MG/DL (1.5-2.5)
[2017-06-09] MEDS: FERROUS SULFATE 325 MG (65 MG ELEMENTAL IRON) TAB PO SCH ×3 (09:05→17:12)
[2017-06-09] MEDS: risperiDONE 0.5 MG TAB PO SCH ×3 (09:05→17:12)
[2017-06-09] MEDS: DOCUSATE SODIUM 50 MG/SENNA 8.6 MG TAB PO SCH ×2 (09:05→19:43)
[2017-06-09] MEDS: ASPIRIN EC 81 MG TABEC PO SCH (09:05)
[2017-06-09] MEDS: GABAPENTIN 100 MG CAP PO SCH (09:06)
[2017-06-09] MEDS: hydrALAZINE HCL 100 MG TAB PO SCH ×3 (09:06→17:12)
[2017-06-09] MEDS: PANTOPRAZOLE SOD 20 MG DELAYED RELEASE TAB PO SCH (09:06)
[2017-06-09] MEDS: METOPROLOL TARTRATE 25 MG TAB PO SCH ×2 (09:06→19:43)
[2017-06-09] MEDS: MULTIVITAMINS/MINERALS THERAPEUTIC TAB PO SCH (09:06)
[2017-06-09] MEDS: SODIUM CHLORIDE 0.9% FLUSH 10 ML FLUSH IV FLUSH SCH ×2 (09:07→19:42)
[2017-06-09] MEDS: HEPARIN SODIUM - SQ 10,000 UNITS/ML VIAL SQ SCH ×2 (09:07→19:43)
[2017-06-09 12:00] VITALS: BP 121/55; PULSE 65; RESP 17; TEMP 97.8; O2SAT 97
--- NOTE | 2017-06-09 13:54 | HHI.PR ---
Subjective Remarks Follow-up UTI. She is doing okay awaiting PICC line consent from son. Discussed with RN Objective Vitals Vital Signs Date Time Temp Pulse Resp B/P (MAP) Pulse Ox O2 Delivery O2 Flow Rate FiO2 06/09/17 12:00 97.8 65 17 121/55 (77) 97 06/09/17 08:00 97.9 71 15 152/76 (101) 98 06/08/17 23:53 96.8 75 18 128/61 (83) 95 06/08/17 20:02 98.7 72 17 121/67 (85) 99 06/08/17 19:38 Nasal Cannula 2.00 06/08/17 16:00 98.3 78 16 116/65 (82) 97 I/O 06/08/17 06/08/17 06/08/17 06/09/17 06/09/17 06/09/17 06:59 14:59 22:59 06:59 14:59 22:59 Intake Total 180 ml 718 ml 480 ml Output Total 1350 ml 800 ml Balance -1170 ml 718 ml -320 ml Intake Oral 180 ml 300 ml 480 ml IV Total 418 ml Output Urine Total 100 ml 100 ml Drainage Total 1250 ml 700 ml # Bowel Movements 0 Result Diagram: 06/09/17 0731 06/09/17 0731 Imaging Last Impressions Nephrostomy 06/07/17 0000 Signed Impressions: Service Date/Time: Wednesday, June 07, 2017 09:22 - CONCLUSION: 1. Technically successful placement of new nephrostomy catheter through existing percutaneous tract. Jadon Canales MD Chest X-Ray 06/05/17 0554 Signed Impressions: Service Date/Time: Monday, June 05, 2017 06:04 - CONCLUSION: No acute disease. Rosales Jay MD Head CT 06/05/17 0000 Signed Impressions: Service Date/Time: Monday, June 05, 2017 06:42 - CONCLUSION: 1. Stable chronic right middle cerebral artery territory infarct. 2. No acute hemorrhage or mass effect. Rosales Jay MD Abdomen/Pelvis CT 06/05/17 0000 Signed Impressions: Service Date/Time: Monday, June 05, 2017 06:47 - CONCLUSION: 1. There is a double-J stent in the right collecting system. There is hydronephrosis of the right collecting system which appears to be mildly increased compared to 2015. 2. There are multiple calcified stones in the right kidney and right renal pelvis. 3. Otherwise, no other significant changes compared to the prior exam from 2015. Yo Joiner MD Objective Remarks GENERAL: No distress. Well-developed and well-nourished SKIN: No rashes, ecchymoses or lesions. Cool and dry. CARDIOVASCULAR: Regular rate and rhythm without murmurs, gallops, or rubs. RESPIRATORY: Clear to auscultation. Breath sounds equal bilaterally. No wheezes , rales, or rhonchi. GASTROINTESTINAL: Abdomen soft, non-tender, nondistended. No guarding. MUSCULOSKELETAL: Extremities with 1+ edema in the LEs. Nephrostomy tube on the right. NEUROLOGICAL: Awake with chronic left-sided weakness Procedures Nephrostomy tube placement A/P Problem List: (1) UTI (urinary tract infection) ICD Code: N39.0 - Urinary tract infection, site not specified Status: Acute (2) History of CVA with residual deficit ICD Code: I69.30 - Unspecified sequelae of cerebral infarction Status: Chronic Assessment and Plan 61-year-old female with history of CVA, kidney stones with recent nephrostomy tube placement, UTI. Acute on chronic kidney disease stage 3 CT abdomen pelvis reviewed, shows calculus, nephrostomy tube displaced. Urology consult appreciated. Creatinine improving status post IV hydration. S/p nephrostomy tube replacement by IR. - urology following. - follow BMP and avoid nephrotoxic agents. Discontinue Aldactone UTI/ Leukocytosis Has a history of ESBL. Urine culture growing ESBL. - Blood cultures negative to date - Status post linezolid. D/c IV ceftriaxone. Continue IV ertapenem until June 20. - ID recommended 2 weeks of IV ertapenem via PICC line Altered mental status resolved, patient awake and answering questions appropriately and following simple commands Multifactorial. Has a history of CVA with left-sided hemiparesis. - treat infection as above. - resume home meds. Hold unnecessary sedating meds. - PT/ OT. History of A. fib Currently sinus rhythm. Patient used to be on Xarelto, no longer on anticoagulation due to hematuria. - Continue beta brayan. Monitor DVT ppx: Heparin Discharge Planning Stable for discharge after PICC line placement Problem Qualifiers (1) UTI (urinary tract infection): Qualified Codes: N39.0 - Urinary tract infection, site not specified Sid Singh MD Jun 09, 2017 13:53
--- NOTE | 2017-06-09 13:54 | HHI.DS ---
Discharge Summary Admission Date Jun 07, 2017 at 12:07 Discharge Date: Jun 10, 2017 Admitting Diagnosis uti, renal insufficiency, altered mental status episode (1) UTI (urinary tract infection) ICD Code: N39.0 - Urinary tract infection, site not specified Diagnosis: Principal Status: Acute (2) History of CVA with residual deficit ICD Code: I69.30 - Unspecified sequelae of cerebral infarction Diagnosis: Principal Status: Chronic Procedures Nephrostomy tube placement Brief History - From Admission Patient is a 61-year-old female with history of left hemiparesis and speech difficulty from a previous stroke, bipolar, schizophrenia, depression and anxiety, CAD, hypertension, atrial fibrillation, hyperlipidemia, diabetes mellitus, osteoarthritis, decubitus ulcer on heel and sacral area chronic, history of carotid stenosis and recently hospitalized March 2015 for severe sepsis She came from the halfway after dislodging her left nephrostomy tube. Patient has the to put in for a large ureteral calculus. She also has a indwelling Rebolledo catheter. As per the paramedics patient was awake on route. However after coming to the ER at the registration patient suddenly became unresponsive. She did maintain her airway breathing spontaneously. Her oxygenation dropped to high 80s and she was started on nasal cannula. When she was awake on route she was alert, aao 3 and talking. No history of any pain as per the paramedics. Patient is sleepy but able to answer some questions. CBC/BMP: 06/09/17 0731 06/09/17 0731 Significant Findings Laboratory Tests Test 06/06/17 15:15 06/07/17 12:58 06/08/17 05:29 06/09/17 07:31 Red Blood Count 3.70 MIL/MM3 (4.00-5.30) 3.89 MIL/MM3 (4.00-5.30) 3.31 MIL/MM3 (4.00-5.30) 3.23 MIL/MM3 (4.00-5.30) Hemoglobin 10.4 GM/DL (11.6-15.3) 11.0 GM/DL (11.6-15.3) 9.5 GM/DL (11.6-15.3) 9.1 GM/DL (11.6-15.3) Hematocrit 31.8 % (35.0-46.0) 33.8 % (35.0-46.0) 30.0 % (35.0-46.0) 28.1 % (35.0-46.0) Neutrophils (%) (Auto) 75.2 % (16.0-70.0) 70.8 % (16.0-70.0) Activated Partial Thromboplast Time 31.6 SEC (24.3-30.1) Blood Urea Nitrogen 24 MG/DL (7-18) 22 MG/DL (7-18) 21 MG/DL (7-18) Creatinine 1.76 MG/DL (0.50-1.00) 1.87 MG/DL (0.50-1.00) 1.77 MG/DL (0.50-1.00) Chloride Level 108 MEQ/L (98-107) 109 MEQ/L (98-107) 111 MEQ/L (98-107) Estimat Glomerular Filtration Rate 29 ML/MIN (>89) 27 ML/MIN (>89) 29 ML/MIN (>89) Mean Corpuscular Hemoglobin Concent 31.7 % (32.0-36.0) Carbon Dioxide Level 20.1 MEQ/L (21.0-32.0) Imaging Last Impressions Nephrostomy 06/07/17 0000 Signed Impressions: Service Date/Time: Wednesday, June 07, 2017 09:22 - CONCLUSION: 1. Technically successful placement of new nephrostomy catheter through existing percutaneous tract. Jadon Canales MD Chest X-Ray 06/05/17 0554 Signed Impressions: Service Date/Time: Monday, June 05, 2017 06:04 - CONCLUSION: No acute disease. Rosales Jay MD Head CT 06/05/17 0000 Signed Impressions: Service Date/Time: Monday, June 05, 2017 06:42 - CONCLUSION: 1. Stable chronic right middle cerebral artery territory infarct. 2. No acute hemorrhage or mass effect. Rosales Jay MD Abdomen/Pelvis CT 06/05/17 0000 Signed Impressions: Service Date/Time: Monday, June 05, 2017 06:47 - CONCLUSION: 1. There is a double-J stent in the right collecting system. There is hydronephrosis of the right collecting system which appears to be mildly increased compared to 2015. 2. There are multiple calcified stones in the right kidney and right renal pelvis. 3. Otherwise, no other significant changes compared to the prior exam from 2015. Yo Joiner MD PE at Discharge GENERAL: No distress. Well-developed and well-nourished SKIN: No rashes, ecchymoses or lesions. Cool and dry. CARDIOVASCULAR: Regular rate and rhythm without murmurs, gallops, or rubs. RESPIRATORY: Clear to auscultation. Breath sounds equal bilaterally. No wheezes , rales, or rhonchi. GASTROINTESTINAL: Abdomen soft, non-tender, nondistended. No guarding. MUSCULOSKELETAL: Extremities with 1+ edema in the LEs. Nephrostomy tube on the right. NEUROLOGICAL: Awake with chronic left-sided weakness Hospital Course 61-year-old female with history of CVA, kidney stones with recent nephrostomy tube placement, UTI. Acute on chronic kidney disease stage 3 CT abdomen pelvis reviewed, shows calculus, nephrostomy tube displaced. Urology consult appreciated. Creatinine improving status post IV hydration. S/p nephrostomy tube replacement by IR. - urology following. - follow BMP and avoid nephrotoxic agents. Discontinue Aldactone UTI/ Leukocytosis Has a history of ESBL. Urine culture growing ESBL. - Blood cultures negative to date - Status post linezolid. D/c IV ceftriaxone. Continue IV ertapenem until June 20. - ID recommended 2 weeks of IV ertapenem via PICC line Altered mental status resolved, patient awake and answering questions appropriately and following simple commands Multifactorial. Has a history of CVA with left-sided hemiparesis. - treat infection as above. - resume home meds. Hold unnecessary sedating meds. - PT/ OT. History of A. fib Currently sinus rhythm. Patient used to be on Xarelto, no longer on anticoagulation due to hematuria. - Continue beta brayan. Monitor DVT ppx: Heparin Pt Condition on Discharge: Stable Discharge Disposition: Discharge to SNF Discharge Time: > 30 minutes Discharge Instructions DIET: Follow Instructions for: Heart Healthy Diet, Diabetic Diet Speech Therapy-Diet Recommends: Pureed, [place] Thickened Liquids Activities you can perform: Regular-No Restrictions, Non Weight Bearing Follow up Referrals: PCP Follow-up - 1 Week New Orders: BASIC METABOLIC PROF - 06/12/17 New Medications: Epinephrine Inj (Epinephrine Inj) 1 Mg/Ml (1 Ml) Inj 0.3 MG IV PUSH ONCE PRN for ALLERGIC REACTION, #1 VIAL Epinephrine Inj (Epinephrine Inj) 1 Mg/Ml (1 Ml) Inj 0.3 MG SQ ONCE PRN for ALLERGIC REACTION, #1 VIAL Give with any signs of respiratory distress. Ertapenem Inj (Invanz Inj) 1 Gm Addvial 1 GM IV Q24H for Infection for 10 Days, INJECTION 0 Refills ADMINISTER IN 100ML NS Hydrocortisone Inj (Solu-Cortef Inj) 250 Mg/2 Ml Inj 250 MG IV PUSH ONCE PRN for ALLERGIC REACTION, #1 VIAL 0 Refills Give over 30-60 seconds. Lorazepam (Ativan) 0.5 Mg Tab 0.5 MG PO DAILY PRN for ANXIETY, #3 TAB Changed Medications: Hydrocodone-Acetaminophen (Hydrocodone-Acetaminophen) 10-325 mg Tab 1 TAB PO Q8H PRN for PAIN for 14 Days, #12 TAB 0 Refills (Changed from: Q4H; 84) Continued Medications: Amlodipine (Amlodipine) 10 Mg Tab 10 MG PO DAILY for Blood Pressure Management, #30 TAB [address] (Aspirin EC) 81 Mg Tabdr 81 MG PO DAILY, TAB 0 Refills Bisacodyl Supp (Bisacodyl Supp) 10 Mg Supp 10 MG RECTAL DAILY PRN for CONSTIPATION, SUPP 0 Refills Ferrous Sulfate (Ferrous Sulfate) 325 Mg (65 Mg Iron) Tablet 325 MG PO TIDPC for Nutritional Supplement, #90 TAB 0 Refills Gabapentin (Gabapentin) 100 Mg Cap 100 MG PO DAILY, #60 CAP 0 Refills Hydralazine (Hydralazine) 100 Mg Tab 50 MG PO TID for Blood Pressure Management, TAB 0 Refills Take with meals Insulin Detemir Inj (Levemir Inj) 1,000 unit/ 10 ML Vial 7 UNITS SQ HS for Blood Sugar Management, VIAL 0 Refills Do not mix with any other Insulin. Metoprolol Tartrate (Metoprolol Tartrate) 25 Mg Tab 25 MG PO BID, #60 TAB 0 Refills Multiple Vitamins W/ Minerals (Thera M Plus) 1 Tab 1 TAB PO DAILY for Nutritional Supplement, TAB 0 Refills Nut.tx.gluc.intoler,Lac-Fr,Soy (Glytrol) 1,000 Ml Liquid 60 ML PO TID Omeprazole (Omeprazole) 20 Mg Tab 20 MG PO DAILY, #30 TAB 0 Refills Risperidone (Risperidone) 0.5 Mg Tab 0.5 MG PO TID, #30 TAB 0 Refills Sennosides (Senna-Tabs) 8.6 Mg Tab 8.6 MG PO BID for Constipation, #30 TAB 0 Refills Sertraline (Sertraline) 50 Mg Tab 50 MG PO DAILY, #30 TAB 0 Refills Discontinued Medications: Acetaminophen (Tylenol) 325 Mg Tab 650 MG PO Q4HR PRN for PAIN SCALE 5 TO 7, #1 TAB 0 Refills Levofloxacin (Levaquin) 500 Mg Tablet 500 MG PO DAILY for infection for 14 Days, #14 TAB Linezolid (Zyvox) 600 Mg Tab 600 MG PO Q12H for Infection for 7 Days, #14 TAB 0 Refills Loperamide HCl (Loperamide) 2 Mg Tablet 4 MG PO PRN for Diarrhea Lorazepam (Lorazepam) 0.5 Mg Tab 0.5 MG PO TID PRN for ANXIETY for 10 Days, TAB 0 Refills Mag Hydrox/Aluminum Hyd/Simeth (Alum-Mag Hydroxide-Simeth Liq) 200 Mg-200 Mg-20 Mg/5 Ml Oral.susp 30 ML PO Q4HR Potassium Chloride ER (Potassium Chloride ER) 10 Meq Cap 10 MEQ PO DAILY for Electrolyte Replacement, #30 CAP 0 Refills Spironolactone (Spironolactone) 25 Mg Tab 25 MG PO DAILY, #30 TAB 0 Refills Sid Singh MD Jun 09, 2017 13:54
[2017-06-09 16:00] VITALS: BP 131/65; PULSE 65; RESP 16; TEMP 98.7; O2SAT 97
[2017-06-09] MEDS: ERTAPENEM INJ 1,000 MG in SODIUM CHLORIDE 0.9% INJ 100 ML IV SCH (17:05)
[2017-06-09] MEDS: INSULIN DETEMIR 100 UNITS/ML VIAL SQ SCH (19:45)
[2017-06-09 20:15] VITALS: BP 159/76; PULSE 68; RESP 17; TEMP 96.7; O2SAT 96
[2017-06-10 00:22] VITALS: BP 134/72; PULSE 74; RESP 18; TEMP 96.3; O2SAT 96
[2017-06-10 08:00] VITALS: BP 145/66; PULSE 62; RESP 18; TEMP 98.1; O2SAT 97
[2017-06-10 08:18] LABS: BICARBONATE 26.9 MEQ/L (21.0-32.0); MAGNESIUM 2.2 MG/DL (1.5-2.5); POTASSIUM 4.2 MEQ/L (3.5-5.1)
[2017-06-10] MEDS: INSULIN ASPART SUPPLEMENTAL SCALE SQ SCH ×3 (09:16→17:00)
[2017-06-10] MEDS: DOCUSATE SODIUM 50 MG/SENNA 8.6 MG TAB PO SCH (09:18)
[2017-06-10] MEDS: GABAPENTIN 100 MG CAP PO SCH (09:18)
[2017-06-10] MEDS: METOPROLOL TARTRATE 25 MG TAB PO SCH (09:18)
[2017-06-10] MEDS: HEPARIN SODIUM - SQ 10,000 UNITS/ML VIAL SQ SCH (09:18)
[2017-06-10] MEDS: MULTIVITAMINS/MINERALS THERAPEUTIC TAB PO SCH (09:18)
[2017-06-10] MEDS: SODIUM CHLORIDE 0.9% FLUSH 10 ML FLUSH IV FLUSH SCH (09:18)
[2017-06-10] MEDS: risperiDONE 0.5 MG TAB PO SCH ×3 (09:18→17:50)
[2017-06-10] MEDS: ASPIRIN EC 81 MG TABEC PO SCH (09:18)
[2017-06-10] MEDS: PANTOPRAZOLE SOD 20 MG DELAYED RELEASE TAB PO SCH (09:18)
[2017-06-10] MEDS: hydrALAZINE HCL 100 MG TAB PO SCH ×3 (09:18→17:50)
[2017-06-10] MEDS: FERROUS SULFATE 325 MG (65 MG ELEMENTAL IRON) TAB PO SCH ×3 (09:18→17:50)
[2017-06-10 12:00] VITALS: BP 139/70; PULSE 66; RESP 20; TEMP 98.1; O2SAT 96
[2017-06-10] MEDS: ACETAMINOPHEN/HYDROcodone 325 MG/10 MG TAB PO PRN (13:04)
[2017-06-10] MEDS: ERTAPENEM INJ 1,000 MG in SODIUM CHLORIDE 0.9% INJ 100 ML IV SCH (15:27)
[2017-06-10 16:00] VITALS: BP 141/77; PULSE 63; RESP 20; TEMP 96.9; O2SAT 95
== END 2017-06-10 18:25 | DRG 699 ==
LOC: NEPC 05:40 → NEDA 10:46 → NEPFCDU 13:12 → OBSVTOIN 06-07 12:07 → N07A 06-07 17:10
PROVIDERS: ADMIT Internal Medicine; ATTEND Internal Medicine
PROC: 0T9030Z Drainage of Right Kidney with Drainage Device, Percutaneous Approach (ICD-10-PCS; principal; 2017-06-07)
PROC: 02HV33Z Insertion of Infusion Device into Superior Vena Cava, Percutaneous Approach (ICD-10-PCS; 2017-06-10)
DX: T83.022A Displacement of nephrostomy catheter, initial encounter (principal); N17.9 Acute kidney failure, unspecified; E11.22 Type 2 diabetes mellitus with diabetic chronic kidney disease; I69.354 Hemiplegia and hemiparesis following cerebral infarction affecting left non-dominant side; N18.3 Chronic kidney disease, stage 3 (moderate); I48.91 Unspecified atrial fibrillation; I12.9 Hypertensive chronic kidney disease with stage 1 through stage 4 chronic kidney disease, or unspecified chronic kidney disease; E86.0 Dehydration; N13.2 Hydronephrosis with renal and ureteral calculous obstruction; N39.0 Urinary tract infection, site not specified; F20.9 Schizophrenia, unspecified; M19.90 Unspecified osteoarthritis, unspecified site; I25.10 Atherosclerotic heart disease of native coronary artery without angina pectoris; E78.5 Hyperlipidemia, unspecified; R41.82 Altered mental status, unspecified; F31.9 Bipolar disorder, unspecified; F41.9 Anxiety disorder, unspecified; B96.20 Unspecified Escherichia coli [E. coli] as the cause of diseases classified elsewhere; Y73.2 Prosthetic and other implants, materials and accessory gastroenterology and urology devices associated with adverse incidents; Z16.12 Extended spectrum beta lactamase (ESBL) resistance; Z79.01 Long term (current) use of anticoagulants; Z79.4 Long term (current) use of insulin; Z95.5 Presence of coronary angioplasty implant and graft
CPT/HCPCS: 50432; 70450; 71010; 74176; 80048; 80053; 81001; 82948; 83605; 83735; 85025; 85027; 85610; 85730; 86850; 86900; 86901; 87040; 87077; 87086; 87186; 94640; 94664; 96361; 96365; 96366; 96375; 99152; C1729; C1769; G0378; G8996-GN; G8997-GN; J0696; J1335; J1644; J1815; J2250; J2310; J3010; J7030; J7040; Q9967

== ENCOUNTER 2017-07-16 17:05 | Observation (INO) | payer MEDICARE, OTHER ==
[~2017-07-16] VITALS: Ht 172.7 cm; Wt 89.0 kg
[~2017-07-16 17:05] MED LIST changes: +BISA10SU3 RECTAL; +EPIN1INJ21 IV PUSH; +EPIN1INJ21 SQ; +INVA1INJ IV; -LEVA500T33 PO; +LORA-392 PO; -LORA0.5T PO; -POTA10CA PO; +SOLU250I IV PUSH; -SPIR25TA PO; -ZYVO600T PO
[2017-07-16 17:15] VITALS: BP 141/85; PULSE 65; RESP 16; TEMP 98.1; O2SAT 98
[2017-07-16] MEDS ORDERED: TYLE325T PO (18:25)
[2017-07-16] MEDS ORDERED: HYDR-3800 PO (18:25)
[2017-07-16] MEDS ORDERED: PERC5TAB12 PO (18:25)
--- NOTE | 2017-07-16 18:29 | PD ---
HPI Chief Complaint: Complaint Time Seen by Provider: 18:15 Travel History International Travel<30 days: No Contact w/Intl Traveler<30days: No Traveled to known affect area: No History of Present Illness HPI 62-year-old female with a history of CVA with left hemiparesis, aphasia, bipolar disorder, schizophrenia, atrial fibrillation, diabetes presents emergency department from her shelter facility, [facility], with a request for right nephrostomy tube replacement. Patient seems alert and oriented although does not know why she is here today. Patient does complain of left flank pain but says this as chronic. She is a poor historian. PFSH Past Medical History Anemia: Yes Arthritis: Yes Asthma: No Atrial Fibrillation: Yes Blood Disorders: No Bipolar Disorder: Yes Anxiety: Yes Depression: Yes Heart Rhythm Problems: Yes (TACHYCARDIA ) Cancer: No Cardiac Catheterization: Yes (2007) Cardiovascular Problems: Yes High Cholesterol: No Chemotherapy: No Chest Pain: No Congestive Heart Failure: No COPD: No Cerebrovascular Accident: Yes Coronary Artery Disease: Yes Diabetes: Yes Patient Takes Glucophage: No Diminished Hearing: No GERD: No Glaucoma: No Genitourinary: Yes (HYDRONEPHROSIS, KIDNEY CALCULUS ) Headaches: Yes (unknown) Hepatitis: No Hiatal Hernia: No Hypertension: Yes (unknown) Kidney Stones: No Musculoskeletal: Yes Neurologic: Yes Psychiatric: Yes Immunizations Current: No Migraines: No Myocardial Infarction: No Radiation Therapy: No Renal Failure: No Schizophrenia: Yes Seizures: No Sickle Cell Disease: No Sleep Apnea: No Thyroid Disease: No Ulcer: No Tetanus Vaccination: > 5 Years Influenza Vaccination: Yes PNEUMOCCOCAL Vaccine (Year): 1 ?: Not Menopausal: Yes : 1 Para: 1 Past Surgical History Abdominal Surgery: Yes (HYSTERECTOMY) AICD: No Appendectomy: No Arteriovenous Shunt: No Body Medical Devices: CARDIAC STENT Section: Yes Cholecystectomy: No Coronary Stent: Yes Endocrine Surgery: No Gynecologic Surgery: Yes (HYSTRECTOMY ) Hysterectomy: Yes (1988) Insulin Pump: No Joint Replacement: No Neurologic Surgery: Yes (UNKNOWN) Oral Surgery: Yes (EXTRACTION) Pacemaker: No Tonsillectomy: Yes Other Surgery: Yes Social History Alcohol Use: No Tobacco Use: No Substance Use: No Allergies-Medications (Allergen,Severity, Reaction): Coded Allergies: *MDRO Multi-Drug Resistant Organism (Verified Adverse Reaction, Unknown, 06/05/17) 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 ESBL + E. 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 Reported Meds & Prescriptions Reported Meds & Active Scripts Active Hydrocodone-Acetaminophen 10-325 mg Tab 1 Tab PO Q8H PRN 14 Days Reported Tylenol (Acetaminophen) 325 Mg Tab 650 Mg PO Q6H PRN Percocet (Oxycodone-Acetaminophen) 5-325 mg Tab 1-2 Tab PO Q6H PRN Hydralazine HCl 50 Mg Tablet 50 Mg PO TID Bisacodyl Supp (Bisacodyl) 10 Mg Supp 10 Mg RECTAL DAILY PRN Gabapentin 100 Mg Cap 100 Mg PO BID Ferrous Sulfate 325 Mg (65 Mg Iron) Tablet 325 Mg PO TIDPC Aspirin EC (Aspirin) 81 Mg Tabdr 81 Mg PO DAILY Amlodipine (Amlodipine Besylate) 10 Mg Tab 10 Mg PO DAILY Glytrol (Nut.tx.gluc.intoler,Lac-Fr,Soy) 1,000 Ml Liquid 60 Ml PO TID Levemir Inj (Insulin Detemir) 1,000 unit/ 10 ML Vial 7 Units SQ HS Do not mix with any other Insulin. Thera M Plus (Multivitamins/Minerals Therapeutic) 1 Tab 1 Tab PO DAILY Sertraline (Sertraline HCl) 50 Mg Tab 50 Mg PO DAILY Senna-Tabs (Sennosides) 8.6 Mg Tab 8.6 Mg PO BID Risperidone 0.5 Mg Tab 0.5 Mg PO TID Omeprazole 20 Mg Tab 20 Mg PO DAILY Metoprolol Tartrate 25 Mg Tab 25 Mg PO BID Review of Systems Except as stated in HPI: all other systems reviewed are Neg Physical Exam Narrative GENERAL: Well-developed well-nourished obese, non toxic appearing. SKIN: Focused skin assessment warm/dry. right flank with dry dressing where previous tube placed. HEAD: Atraumatic. Normocephalic. EYES: Pupils equal and round. No scleral icterus. No injection or drainage. ENT: No nasal bleeding or discharge. Mucous membranes pink and moist. NECK: Trachea midline. No JVD. No lymphadenopathy CARDIOVASCULAR: Regular rate and rhythm. No murmur appreciated. RESPIRATORY: No accessory muscle use. Clear to auscultation. Breath sounds equal bilaterally. GASTROINTESTINAL: Abdomen soft, non-tender, nondistended. Protuberant abdomen. hepatic and splenic margins not palpable. Nephrostomy tube port right sided without drainage. MUSCULOSKELETAL: No obvious deformities. No clubbing. No cyanosis. No edema. Left upper extremity severe contracture : indwelling catheter in place with scant urine. NEUROLOGICAL: Awake and alert. Motor grossly within normal limits. Patient answering yes or no questions only, chronic PSYCHIATRIC: Appropriate mood and affect; insight and judgment normal. Data Data Last Documented VS Vital Signs Date Time Temp Pulse Resp B/P (MAP) Pulse Ox O2 Delivery O2 Flow Rate FiO2 07/16/17 19:02 16 07/16/17 17:15 98.1 65 141/85 (103) 98 Orders Orders Morphine Inj (Morphine Inj) (07/16/17 18:45) Ct Abd/Pel W/O Iv Contrast (07/16/17 ) Complete Blood Count With Diff (07/16/17 18:58) Comprehensive Metabolic Panel (07/16/17 18:58) Lipase (07/16/17 18:58) Prothrombin Time / Inr (Pt) (07/16/17 18:58) Act Partial Throm Time (Ptt) (07/16/17 18:58) Urinalysis - C+S If Indicated (07/16/17 18:58) Urine Culture (07/16/17 19:30) Morphine Inj (Morphine Inj) (07/16/17 20:45) Sodium Chlorid 0.9% 500 Ml Inj (Ns 500 M (07/16/17 21:30) Piperacil-Tazo 3.375 Gm Premix (Zosyn 3. (07/16/17 21:30) Admit Order (Ed Use Only) (07/16/17 21:24) Labs Laboratory Tests Test 07/16/17 19:30 White Blood Count 10.0 TH/MM3 Red Blood Count 3.92 MIL/MM3 Hemoglobin 10.6 GM/DL Hematocrit 33.2 % Mean Corpuscular Volume 84.7 FL Mean Corpuscular Hemoglobin 27.0 PG Mean Corpuscular Hemoglobin Concent 31.9 % Red Cell Distribution Width 14.9 % Platelet Count 231 TH/MM3 Mean Platelet Volume 8.8 FL Neutrophils (%) (Auto) 56.3 % Lymphocytes (%) (Auto) 32.9 % Monocytes (%) (Auto) 5.3 % Eosinophils (%) (Auto) 4.9 % Basophils (%) (Auto) 0.6 % Neutrophils # (Auto) 5.6 TH/MM3 Lymphocytes # (Auto) 3.3 TH/MM3 Monocytes # (Auto) 0.5 TH/MM3 Eosinophils # (Auto) 0.5 TH/MM3 Basophils # (Auto) 0.1 TH/MM3 CBC Comment AUTO DIFF Differential Comment AUTO DIFF CONFIRMED Toxic Vacuolation PRESENT Platelet Estimate NORMAL Platelet Morphology Comment NORMAL Red Cell Morphology Comment NORMAL Prothrombin Time 10.3 SEC Prothromb Time International Ratio 1.0 RATIO Activated Partial Thromboplast Time 28.3 SEC Urine Color YELLOW Urine Turbidity CLOUDY Urine pH 7.0 Urine Specific [place] 1.014 Urine Protein 100 mg/dL Urine Glucose (UA) NEG mg/dL Urine Ketones NEG mg/dL Urine Occult Blood MOD Urine Nitrite NEG Urine Bilirubin NEG Urine Urobilinogen LESS THAN 2.0 MG/DL Urine Leukocyte Esterase LARGE Urine RBC /hpf Urine WBC /hpf Urine WBC Clumps MANY Urine Squamous Epithelial Cells 4 /hpf Urine Bacteria MANY /hpf Microscopic Urinalysis Comment CULTURE INDICATED Blood Urea Nitrogen 34 MG/DL Creatinine 1.75 MG/DL Random Glucose 83 MG/DL Total Protein 8.1 GM/DL Albumin 3.4 GM/DL Calcium Level 9.3 MG/DL Alkaline Phosphatase 84 U/L Aspartate Amino Transf (AST/SGOT) 16 U/L Alanine Aminotransferase (ALT/SGPT) 17 U/L Total Bilirubin 0.2 MG/DL Sodium Level 139 MEQ/L Potassium Level 4.3 MEQ/L Chloride Level 106 MEQ/L Carbon Dioxide Level 25.6 MEQ/L Anion Gap 7 MEQ/L Estimat Glomerular Filtration Rate 29 ML/MIN Lipase 200 U/L [facility] Medical Decision Making Medical Screen Exam Complete: Yes Emergency Medical Condition: Yes 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 Patient seems alert and oriented although does not know why she is here today. Patient does complain of left flank pain but says this as chronic. She is a poor historian. Vital signs stable. Physical exam findings consistent with a 62y female with significant left upper extremity contractures, nephrostomy port clean and dry. Abdomen protuberant and nontender. Mild lower extremity edema. Scant urine in hernandez catheter. I spoke with Dr. Flores regarding the CT abdomen pelvis and he recommended a urology consult. I discussed this case with Dr. Rendon, urology, who recommended an IR consult for nephrostomy tube replacement in the morning as her right kidney as the only functioning kidney. In addition, her double j stent is calcified and which is concerning for future obstruction. Left kidney atrophied. 500cc NS bolus will be administered along with Zosyn for possible UTI. Reviewed previous C&S and she has a history of EBSL, sensitive to Zosyn. Pt complained of flank pain during the visit so total 4mg IV morphine administered throughout ER stay. Patient will be admitted to OBs with IR consult for nephrostomy tube replacement in the morning. Pt was stable as of transfer of care. Diagnosis Primary Impression: Nephrostomy tube displaced Additional Impression: UTI (urinary tract infection) Qualified Codes: T83.511A - Infection and inflammatory reaction due to indwelling urethral catheter, initial encounter; N39.0 - Urinary tract infection , site not specified Admitting Information Admitting Physician Requests: Observation Condition: Stable Margaret Woodall Jul 16, 2017 18:29
[2017-07-16] MEDS ORDERED: MORPHINE SULFATE 2 MG/ML INJ IV PUSH ONE ×2 (18:45→20:45)
--- NOTE | 2017-07-16 19:23 | RADRPT ---
EXAM DATE/TIME: 07/16/2017 19:06 [facility] COMPARISON: CT ABDOMEN & PELVIS W/O CONTRAST, June 05, 2017, 6:47. INDICATIONS : Abdominal pain, right nephrostomy tube came out. ORAL CONTRAST: No oral contrast ingested. RADIATION DOSE: 16.86 CTDIvol (mGy) MEDICAL HISTORY : Renal calculi. Hydronephrosis. Diabetes. CVA. SURGICAL HISTORY : Hysterectomy. Right kidney stent. ENCOUNTER: Initial ACUITY: 1 day PAIN SCALE: 4/10 LOCATION: Abdomen. TECHNIQUE: Volumetric scanning of the abdomen and pelvis was performed. Using automated exposure control and ad justment of the mA and/or kV according to patient size, radiation dose was kept as low as reasonably achievable to obtain optimal diagnostic quality images. DICOM format image data is available electro nically for review and comparison. FINDINGS: LOWER LUNGS: The visualized lower lungs are clear. LIVER: Homogeneous density without lesion. There is no dilation of the biliary tree. No calcified gallston es. SPLEEN: Normal size without lesion. PANCREAS: Within normal limits. KIDNEYS: The left kidney is very atrophic and unchanged in the prior study. Right kidney shows a double-J sten t in good position. A tract is seen from prior nephrostomy tube. Multiple renal calculi are seen thro ughout the collecting system of the right kidney. There is mild hydronephrosis. Overall this appearan ce is unchanged from the prior exam. In particular, the degree of distention of the collecting system is no different. ADRENAL GLANDS: Within normal limits. VASCULAR: There is no aortic aneurysm. BOWEL/MESENTERY: The stomach, small bowel, and colon demonstrate no acute abnormality. There is no free intraperitone al air or fluid. ABDOMINAL WALL: Within normal limits. RETROPERITONEUM: There is no lymphadenopathy. BLADDER: No wall thickening or mass. There is calcification seen involving the urinary bladder centered around the distal cope of the double-J stent. REPRODUCTIVE: Within normal limits. INGUINAL: There is no lymphadenopathy or hernia. MUSCULOSKELETAL: Bilateral femoral neck screws with intramedullary rods. Degenerative changes involving the SI joints and lumbar spine. CONCLUSION: 1. The left kidney is very atrophic. 2. No nephrostomy tube seen on the right although a tract is seen leading from the skin to the kidney . This patient does have a double-J stent on the right. There is mild hydronephrosis on the right whi ch is unchanged from the prior exam. 3. Multiple renal stones on the right. The largest measures 1.5 cm. 4. Calcification associated with the distal cope of the double-J stent within the urinary bladder. I' m unsure if this relates to a bladder stone or significant calcification involving the stent itself. Chetan Flores Jr., MD on July 16, 2017 at 19:15 Board Certified Radiologist. This report was verified electronically.
[2017-07-16 20:07] LABS: PROTHROMBIN TIME - PATIENT 10.3 SEC (9.8-11.6)
[2017-07-16 20:11] LABS: AUTOMATED NEUTROPHIL # 5.6 TH/MM3 (1.8-7.7); BASOPHIL # 0.1 TH/MM3 (0-0.2); BASOPHIL % 0.6 % (0.0-2.0); EOSINOPHIL # 0.5 TH/MM3 (0-0.4); EOSINOPHIL % 4.9 % (0.0-4.0); HEMATOCRIT 33.2 % (35.0-46.0); HEMOGLOBIN 10.6 GM/DL (11.6-15.3); LYMPH % 32.9 % (9.0-44.0); LYMPHOCYTE # 3.3 TH/MM3 (1.0-4.8); MEAN CELL VOLUME 84.7 FL (80.0-100.0); MEAN CORPUSCULAR HGB CONC 31.9 % (32.0-36.0); MEAN PLATELET VOLUME 8.8 FL (7.0-11.0); MONO % 5.3 % (0.0-8.0); MONOCYTE # 0.5 TH/MM3 (0-0.9); NEUT % 56.3 % (16.0-70.0); PLATELET COUNT 231 TH/MM3 (150-450); RED BLOOD COUNT 3.92 MIL/MM3 (4.00-5.30); RED CELL DISTRIBUTION WIDTH 14.9 % (11.6-17.2)
[2017-07-16 20:13] LABS: BACTERIA, URINE MANY /hpf; BILIRUBIN, URINE NEG (NEG); BLOOD, URINE MOD (NEG); GLUCOSE,URINE NEG (NEG); KETONE, URINE NEG (NEG); NITRITE,URINE NEG (NEG); SQUAMOUS EPITHELIAL CELL URINE 4 /hpf (0-5); URINE COLOR YELLOW (YELLW/STRAW); URINE LEUKOCYTE ESTERASE LARGE (NEG); WHITE BLOOD CELL CLUMPS MANY
[2017-07-16 20:27] LABS: ALBUMIN 3.4 GM/DL (3.4-5.0); AST (GOT) 16 U/L (15-37); BICARBONATE 25.6 MEQ/L (21.0-32.0); BLOOD UREA NITROGEN 34 MG/DL (7-18); CALCIUM 9.3 MG/DL (8.5-10.1); CHLORIDE 106 MEQ/L (98-107); CREATININE 1.75 MG/DL (0.50-1.00); GLOMERULAR FILTRATION RATE 29 ML/MIN (>89); GLUCOSE,RANDOM 83 MG/DL (74-106); LIPASE 200 U/L (73-393); SODIUM (NA) 139 MEQ/L (136-145)
[2017-07-16 20:28] LABS: ALT (GPT) 17 U/L (10-53)
[2017-07-16 20:30] LABS: ALKALINE PHOSPHATASE 84 U/L (45-117); TOTAL BILIRUBIN ADULT 0.2 MG/DL (0.2-1.0); TOTAL PROTEIN 8.1 GM/DL (6.4-8.2)
[2017-07-16] MEDS ORDERED: IOHEXOL 350 MG/ML 50 ML BTL (for RAD DIAG) OTHER ONE (21:27)
[2017-07-16] MEDS ORDERED: PIPERACIL-TAZO 3.375 GM PREMIX 50 ML IV ONE (21:30)
[2017-07-16] MEDS ORDERED: SODIUM CHLORID 0.9% 500 ML INJ 500 ML IV ONE (21:30)
[2017-07-16 21:34] LABS: TOXIC VACUOLATION PRESENT (NONE SEEN)
[2017-07-16] MEDS ORDERED: NALOXONE HCL 0.4 MG/ML AMP IV PUSH PRN (21:45)
[2017-07-16] MEDS ORDERED: SODIUM CHLORIDE 0.9% FLUSH 10 ML FLUSH IV FLUSH PRN (21:45)
[2017-07-17] VITALS (8 sets, daily range): BP systolic 139–167; BP diastolic 69–79; PULSE 62–86; RESP 12–24; TEMP 98–99; O2SAT 96–97
--- NOTE | 2017-07-17 04:38 | HHI.HP ---
[facility] Service [place] [facility] Primary Care Physician Nii Stone M.D. Admission Diagnosis UTI, nephrostomy tube dislodged Diagnoses: Travel History International Travel<30 Days: No Contact w/Intl Traveler <30 Da: No Traveled to Known Affected Are: No History of Present Illness History from ER PA communication, review of medical records, and residential transfer notes. Patient herself is elderly lady who looks much older than her age. She only answers yes or no questions. However she does not answer most of them though. She has baseline left hemiparesis secondary to prior CVA. Per residential transfer notes, patient was sent to the hospital for nephrostomy tube dislodgment. Her case was discussed with invasive radiology doctors by ER PA. They have requested for patient to be admitted overnight for observation with plans for nephrostomy to be placed in the morning. Patient herself only complains about lower extremity pains. She has chronic peripheral lower extremity edema. She was recently admitted to our hospital around June 09, 2017. She has history of atrial fibrillation and was on Xarelto. This was stopped for hematuria. Review of Systems ROS Limitations: Altered Mental Status (since to have baseline encephalopathy from prior CVA. Does not answer most questions.), Poor Historian Past Family Social History Past Medical History Hypertension Hyperlipidemia Diabetes CAD Atrial fibrillation on Xarelto. This was stopped on June 09, 2017 hospital admission due to hematuria CVA with left-sided hemiparesis History of carotid artery stenosis History of sepsis History of renal stones History of ESBL infection/VRE/MRSA Decubitus ulcer on heel and sacral area chronic Osteoarthritis Schizophrenia/bipolar disorder Past Surgical History Coronary angiogram with stenting in RCA and LAD Hysterectomy Tonsillectomy Left hip ORIF Urinary stent Nephrostomy tube placements Dental extractions Allergies: Coded Allergies: *MDRO Multi-Drug Resistant Organism (Verified Adverse Reaction, Unknown, 06/05/17) 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 ESBL + E. 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 Family History Unknown per EMR Social History Per EMR: No prior history of alcohol abuse/smoking/drug abuse. Currently residential patient Physical Exam Vital Signs Vital Signs Date Time Temp Pulse Resp B/P (MAP) Pulse Ox O2 Delivery O2 Flow Rate FiO2 07/17/17 04:35 63 07/17/17 04:09 98.4 63 22 167/72 (103) 07/17/17 00:00 86 16 142/72 (95) 96 Room Air 07/16/17 19:02 16 07/16/17 17:15 98.1 65 16 141/85 (103) 98 07/16/17 17:15 17 Physical Exam GENERAL: This is an elderly lady, looks much older than her age, mostly staring SKIN: No rashes, ecchymoses or lesions. Cool and dry. HEAD: Atraumatic. Normocephalic. No temporal or scalp tenderness. EYES: . No scleral icterus. No injection or drainage. ENT: Nose without bleeding, purulent drainage or septal hematoma. Airway patent. NECK: Trachea midline. No JVD Supple, nontender, no meningeal signs. CARDIOVASCULAR: Regular rate and rhythm without murmurs, gallops, or rubs. RESPIRATORY: Bilaterally decreased air entry. Poor inspiratory effort. GASTROINTESTINAL: Abdomen soft, non-tender, nondistended. Obese abdomen. No guarding. MUSCULOSKELETAL: Extremities without clubbing, cyanosis. Bilateral lower extremity 3+ pitting edema all the way up to thighs. Left upper extremity contracture NEUROLOGICAL: Awake.. Normal speech. Would not follow commands to perform full neurologic exam. Left upper extremity contracted power is 0 out of 5. Lower extremities with chronic edema and chronic impaired mobility. Laboratory Laboratory Tests Test 07/16/17 19:30 White Blood Count 10.0 Red Blood Count 3.92 Hemoglobin 10.6 Hematocrit 33.2 Mean Corpuscular Volume 84.7 Mean Corpuscular Hemoglobin 27.0 Mean Corpuscular Hemoglobin Concent 31.9 Red Cell Distribution Width 14.9 Platelet Count 231 Mean Platelet Volume 8.8 Neutrophils (%) (Auto) 56.3 Lymphocytes (%) (Auto) 32.9 Monocytes (%) (Auto) 5.3 Eosinophils (%) (Auto) 4.9 Basophils (%) (Auto) 0.6 Neutrophils # (Auto) 5.6 Lymphocytes # (Auto) 3.3 Monocytes # (Auto) 0.5 Eosinophils # (Auto) 0.5 Basophils # (Auto) 0.1 CBC Comment AUTO DIFF Differential Comment AUTO DIFF CONFIRMED Toxic Vacuolation PRESENT Platelet Estimate NORMAL Platelet Morphology Comment NORMAL Red Cell Morphology Comment NORMAL Prothrombin Time 10.3 Prothromb Time International Ratio 1.0 Activated Partial Thromboplast Time 28.3 Urine Color YELLOW Urine Turbidity CLOUDY Urine pH 7.0 Urine Specific [place] 1.014 Urine Protein 100 Urine Glucose (UA) NEG Urine Ketones NEG Urine Occult Blood MOD Urine Nitrite NEG Urine Bilirubin NEG Urine Urobilinogen LESS THAN 2.0 Urine Leukocyte Esterase LARGE Urine RBC Urine WBC Urine WBC Clumps MANY Urine Squamous Epithelial Cells 4 Urine Bacteria MANY Microscopic Urinalysis Comment CULTURE INDICATED Blood Urea Nitrogen 34 Creatinine 1.75 Random Glucose 83 Total Protein 8.1 Albumin 3.4 Calcium Level 9.3 Alkaline Phosphatase 84 Aspartate Amino Transf (AST/SGOT) 16 Alanine Aminotransferase (ALT/SGPT) 17 Total Bilirubin 0.2 Sodium Level 139 Potassium Level 4.3 Chloride Level 106 Carbon Dioxide Level 25.6 Anion Gap 7 Estimat Glomerular Filtration Rate 29 Lipase 200 Date/Time Source Procedure Growth Status 07/16/17 19:30 Urine Random Urine Urine Culture Pending Worksheet Result Diagram: 07/16/17192907/16/171929 Imaging Last 48 hours Impressions Abdomen/Pelvis CT 07/16/17 0000 Signed Impressions: Service Date/Time: Sunday, July 16, 2017 19:06 - CONCLUSION: 1. The left kidney is very atrophic. 2. No nephrostomy tube seen on the right although a tract is seen leading from the skin to the kidney. This patient does have a double-J stent on the right. There is mild hydronephrosis on the right which is unchanged from the prior exam. 3. Multiple renal stones on the right. The largest measures 1.5 cm. 4. Calcification associated with the distal cope of the double-J stent within the urinary bladder. I'm unsure if this relates to a bladder stone or significant calcification involving the stent itself. MD Hamilton Bauer Jr.i VTE Risk Assessment Caprini VTE Risk Assessment: Mod/High Risk (score >= 2) Caprini Risk Assessment Model Point Value = 1 Point Value = 2 Point Value = 3 Point Value = 5 Age 41-60 Minor surgery BMI > 25 kg/m2 Swollen legs Varicose veins or History of unexplained or recurrent spontaneous Oral contraceptives or hormone replacement Sepsis (< 1 month) Serious lung disease, including pneumonia (< 1 month) Abnormal pulmonary function Acute myocardial infarction Congestive heart failure (< 1 month) History of inflammatory bowel disease Medical patient at bed rest Age 61-74 Arthroscopic surgery Major open surgery (> 45 min) Laparoscopic surgery (> 45 min) Malignancy Confined to bed (> 72 hours) Immobilizing plaster cast Central venous access Age >= 75 History of VTE Family history of VTE Factor V Leiden Prothrombin [id number] Lupus anticoagulant Anticardiolipin antibodies Elevated serum homocysteine Heparin-induced thrombocytopenia Other congenital or acquired thrombophilia Stroke (< 1 month) Elective arthroplasty Hip, pelvis, or leg fracture Acute spinal cord injury (< 1 month) Prophylaxis Regimen Total Risk Factor Score Risk Level Prophylaxis Regimen 0-1 Low Early ambulation 2 Moderate Order ONE of the following: *Sequential Compression Device (SCD) *Heparin 5000 units SQ BID 3-4 Higher Order ONE of the following medications: *Heparin 5000 units SQ TID *Enoxaparin/Lovenox 40 mg SQ daily (WT < 150 kg, CrCl > 30 mL/min) *Enoxaparin/Lovenox 30 mg SQ daily (WT < 150 kg, CrCl > 10-29 mL/min) *Enoxaparin/Lovenox 30 mg SQ BID (WT < 150 kg, CrCl > 30 mL/min) AND/OR *Sequential Compression Device (SCD) 5 or more Highest Order ONE of the following medications: *Heparin 5000 units SQ TID (Preferred with Epidurals) *Enoxaparin/Lovenox 40 mg SQ daily (WT < 150 kg, CrCl > 30 mL/min) *Enoxaparin/Lovenox 30 mg SQ daily (WT < 150 kg, CrCl > 10-29 mL/min) *Enoxaparin/Lovenox 30 mg SQ BID (WT < 150 kg, CrCl > 30 mL/min) AND *Sequential Compression Device (SCD) Assessment and Plan Assessment and Plan Impression: Nephrostomy tube dislodgment Abnormal UA. Unsure whether she is symptomatic as she is poor historian. Hypertension Hyperlipidemia Diabetes CAD Atrial fibrillation on Xarelto. This was stopped on June 09, 2017 hospital admission due to hematuria CVA with left-sided hemiparesis History of carotid artery stenosis History of sepsis History of renal stones History of ESBL infection/VRE/MRSA Decubitus ulcer on heel and sacral area chronic Osteoarthritis Schizophrenia/bipolar disorder Plan: Nothing by mouth for breakfast. Invasive radiology is aware of the case. Patient to go for nephrostomy tube placement in a.m. Currently patient has Rebolledo catheter draining urine. Monitor fingersticks every 4 hours. Hold long-acting insulin and oral hypoglycemics. Patient was given Zosyn in ER for UTI. We'll continue Zosyn as patient will be going for a urology procedure as well. Upon discharge to residential, which likely discharge patient on Cipro. [facility]FP M.D. to decide antibiotics choice based on cultures and sensitivity results. lactobacilus Resume residential meds. DVT prophylaxis with Lovenox post procedure. Discussed Condition With patient, her nurse, ER Cielo Schumacher MD Jul 17, 2017 04:38
[2017-07-17] MEDS ORDERED: oxyCODONE/ACETAMINOPHEN 5 MG/325 MG TAB PO PRN (04:45)
[2017-07-17] MEDS ORDERED: ACETAMINOPHEN 325 MG TAB PO PRN (04:45)
[2017-07-17] MEDS ORDERED: BISACODYL 10 MG SUPP RECTAL PRN (04:45)
[2017-07-17] MEDS ORDERED: GLUCAGON 1 MG/ML VIAL OTHER PRN (05:15)
[2017-07-17] MEDS ORDERED: PIPERACIL-TAZO 4.5 GM PREMIX 100 ML IV SCH (05:15)
[2017-07-17] MEDS ORDERED: DEXTROSE 50% IN WATER 50 ML VIAL(D50) IV PUSH PRN (05:15)
[2017-07-17 06:48] LABS: AUTOMATED NEUTROPHIL # 5.4 TH/MM3 (1.8-7.7); BASOPHIL % 0.6 % (0.0-2.0); EOSINOPHIL # 0.3 TH/MM3 (0-0.4); EOSINOPHIL % 4.2 % (0.0-4.0); HEMATOCRIT 30.7 % (35.0-46.0); HEMOGLOBIN 10.1 GM/DL (11.6-15.3); LYMPH % 22.2 % (9.0-44.0); LYMPHOCYTE # 1.8 TH/MM3 (1.0-4.8); MEAN CELL VOLUME 84.5 FL (80.0-100.0); MEAN CORPUSCULAR HEMOGLOBIN 27.9 PG (27.0-34.0); MEAN PLATELET VOLUME 8.8 FL (7.0-11.0); MONO % 5.3 % (0.0-8.0); MONOCYTE # 0.4 TH/MM3 (0-0.9); NEUT % 67.7 % (16.0-70.0); PLATELET COUNT 211 TH/MM3 (150-450); RED BLOOD COUNT 3.64 MIL/MM3 (4.00-5.30); RED CELL DISTRIBUTION WIDTH 14.9 % (11.6-17.2)
[2017-07-17 07:13] LABS: BICARBONATE 29.6 MEQ/L (21.0-32.0); CREATININE 1.63 MG/DL (0.50-1.00)
[2017-07-17] MEDS: risperiDONE 0.5 MG TAB PO SCH ×3 (09:00→17:30)
[2017-07-17] MEDS: SODIUM CHLORIDE 0.9% FLUSH 10 ML FLUSH IV FLUSH SCH ×2 (09:00→20:05)
[2017-07-17] MEDS: hydrALAZINE HCL 50 MG TAB PO SCH ×3 (09:00→17:31)
[2017-07-17] MEDS: SENNOSIDES 8.6 MG TAB PO SCH (09:00)
[2017-07-17] MEDS: MULTIVITAMINS/MINERALS THERAPEUTIC TAB PO SCH (09:00)
[2017-07-17] MEDS: LACTOBACILLUS ACIDOPHILUS 1 GM PACKET PO SCH ×3 (09:00→17:31)
[2017-07-17] MEDS: SERTRALINE HCL 50 MG TAB PO SCH (09:00)
--- NOTE | 2017-07-17 10:06 | HHI.PR ---
Subjective Remarks Follow up on patient with nephrostomy tube dislodgment. Patient seen and examined. Patient tracks with her eyes but does not verbally respond to any of my questioning. She is scheduled to undergo nephrostomy tube placement by IR later this morning. Objective Vitals Vital Signs Date Time Temp Pulse Resp B/P (MAP) Pulse Ox O2 Delivery O2 Flow Rate FiO2 07/17/17 08:30 98.0 62 24 145/73 (97) 96 07/17/17 04:35 63 07/17/17 04:09 98.4 63 22 167/72 (103) 07/17/17 00:00 86 16 142/72 (95) 96 Room Air 07/16/17 19:02 16 07/16/17 17:15 98.1 65 16 141/85 (103) 98 07/16/17 17:15 17 I/O 07/16/17 07/16/17 07/16/17 07/17/17 07/17/17 07/17/17 07:00 15:00 23:00 07:00 15:00 23:00 Output Total 750 ml Balance -750 ml Output Urine Total 750 ml Result Diagram: 07/17/17 0611 07/17/17 0611 Imaging Last Impressions Abdomen/Pelvis CT 07/16/17 0000 Signed Impressions: Service Date/Time: Sunday, July 16, 2017 19:06 - CONCLUSION: 1. The left kidney is very atrophic. 2. No nephrostomy tube seen on the right although a tract is seen leading from the skin to the kidney. This patient does have a double-J stent on the right. There is mild hydronephrosis on the right which is unchanged from the prior exam. 3. Multiple renal stones on the right. The largest measures 1.5 cm. 4. Calcification associated with the distal cope of the double-J stent within the urinary bladder. I'm unsure if this relates to a bladder stone or significant calcification involving the stent itself. Chetan Flores Jr., MD Objective Remarks GENERAL: This is an elderly lady, looks much older than her age, mostly staring. Nonverbal. Tracks with her eyes. SKIN: No rashes, ecchymoses or lesions. Warm and dry. HEAD: Atraumatic. Normocephalic. EYES: . No scleral icterus. No injection or drainage. ENT: Nose without bleeding, purulent drainage or septal hematoma. Airway patent. NECK: Trachea midline. CARDIOVASCULAR: Regular rate and rhythm without murmurs, gallops, or rubs. RESPIRATORY: Poor inspiratory effort. Bilaterally decreased air entry. GASTROINTESTINAL: Abdomen soft, non-tender, nondistended. No guarding. MUSCULOSKELETAL: Extremities without clubbing, cyanosis. Bilateral lower extremity 3+ pitting edema all the way up to thighs. Left upper extremity contracture. NEUROLOGICAL: Awake. Nonverbal. Would not follow commands to perform full neurologic exam. Left upper extremity contracted, motor function 0 out of 5. Lower extremities with chronic edema and chronic impaired mobility. Medications and IVs Current Medications Medications (Trade) Dose Ordered Sig/Sukhi Route Start Time Stop Time Status Last Admin (NS Flush) 2 ml UNSCH PRN IV FLUSH 07/16/17 21:45 (NS Flush) 2 ml BID IV FLUSH 07/17/17 09:00 (Narcan Inj) 0.4 mg UNSCH PRN IV PUSH 07/16/17 21:45 (Tylenol) 650 mg Q6H PRN PO 07/17/17 04:45 (Norvasc) 10 mg DAILY PO 07/17/17 09:00 (Ecotrin Ec) 81 mg DAILY PO 07/17/17 09:00 (Dulcolax Supp) 10 mg DAILY PRN RECTAL 07/17/17 04:45 (Ferrous Sulfate) 325 mg TIDPC PO 07/17/17 09:30 (Neurontin) 100 mg BID PO 07/17/17 09:00 (Apresoline) 50 mg TID PO 07/17/17 09:00 (Levemir Inj) 7 units HS SQ 07/17/17 21:00 (Lopressor) 25 mg BID PO 07/17/17 09:00 (Theragran M Tab) 1 tab DAILY PO 07/17/17 09:00 (Percocet 5-325 Mg) 1 tab Q6H PRN PO 07/17/17 04:45 (risperDAL) 0.5 mg TID PO 07/17/17 09:00 (Senokot) 8.6 mg BID PO 07/17/17 09:00 (Zoloft) 50 mg DAILY PO 07/17/17 09:00 (Protonix) 20 mg DAILY PO 07/17/17 09:00 (D50w (Vial) Inj) 50 ml UNSCH PRN IV PUSH 07/17/17 05:15 (Glucagon Inj) 1 mg UNSCH PRN OTHER 07/17/17 05:15 (Lactinex Pkt) 1 gm QID PO 07/17/17 09:00 A/P Assessment and Plan Nephrostomy tube dislodgment - IR consulted for replacement - keep NPO for now UTI Hx of ESBL/VRE/MRSA - continue on IV Zosyn - follow up on urine culture results Atrial fibrillation - rate controlled - previously on Xarelto but discontinued 06/09/17 due to hematuria - continue on Metoprolol 25mg BID Hypertension - adequate control - continue patient on Norvasc 10mg daily, hydralazine 50mg TID, metoprolol 25mg BID - monitor BP and adjust treatment accordingly CAD CVA with left sided hemiparesis - continue on ASA daily DM - resume home Levemir dose 7u sq - accuchek - ISS CKD - creatinine appears to be near baseline - avoid nephrotoxic agents - monitor kidney function as indicated Anemia - suspect due to chronic disease - chronic, stable Decubitus ulcer on heel and sacral area - chronic - float heels off bed - wound care consult Schizophrenia Bipolar disorder - chronic - resume home meds DVT prophylaxis - hold chemoprophylaxis secondary to IR procedure - bilateral SCDs Eli Rolon Jul 17, 2017 10:06
[2017-07-17] MEDS: FERROUS SULFATE 325 MG (65 MG ELEMENTAL IRON) TAB PO SCH ×3 (10:16→17:31)
[2017-07-17] MEDS: ASPIRIN EC 81 MG TABEC PO SCH (10:16)
[2017-07-17] MEDS: PANTOPRAZOLE SOD 20 MG DELAYED RELEASE TAB PO SCH (10:16)
[2017-07-17] MEDS: GABAPENTIN 100 MG CAP PO SCH (10:16)
[2017-07-17] MEDS: METOPROLOL TARTRATE 25 MG TAB PO SCH (10:16)
[2017-07-17] MEDS ORDERED: SODIUM CHLOR 0.9% 1000 ML INJ 1,000 ML IV SCH (17:30)
[2017-07-17] MEDS: DEXT 5%-NACL 0.9% 1000 ML INJ 1,000 ML IV SCH (17:44)
[2017-07-17] MEDS ORDERED: LORazepam 2 MG/ML VIAL ONE (18:25)
[2017-07-17] MEDS ORDERED: fentaNYL CITRATE 250 MCG/5 ML AMP ONE (18:25)
--- NOTE | 2017-07-17 19:12 | PD.RAD ---
Post Procedure Progress Note Pre Procedure Diagnosis: (1) Hydronephrosis (2) Severe sepsis with acute organ dysfunction Post Procedure Diagnosis: (1) Hydronephrosis (2) Severe sepsis with acute organ dysfunction Procedure Date: Jul 17, 2017 Supervising Radiologist: Manpreet Zamudio Estimated blood loss: none Anesthesia: Local, Analgesia Plan of Activity Patient to Unit: Other Patient Condition: Poor Additional Comments: Right Nephrostomy tube replaced without difficulty through the existing tract. New tube verified in good position. 5cc of purulent material aspirated from the new tube. New tube placed to bag drainage See PACS Report for procedural detail/treatment Manpreet Zamudio MD Jul 17, 2017 19:12
[2017-07-17] MEDS ORDERED: INSULIN DETEMIR 100 UNITS/ML VIAL SQ SCH (21:00)
[2017-07-18] VITALS (9 sets, daily range): BP systolic 120–190; BP diastolic 74–99; PULSE 59–88; RESP 17–20; TEMP 97.7–98.7; O2SAT 95–98
[2017-07-18] MEDS ORDERED: MORPHINE SULFATE 2 MG/ML INJ IV PUSH ONE (02:45)
[2017-07-18] MEDS: DEXT 5%-NACL 0.9% 1000 ML INJ 1,000 ML IV SCH ×2 (06:27→20:54)
--- NOTE | 2017-07-18 08:52 | HHI.PR ---
Subjective Remarks More awake and alert today. Deneis any fevers or chills.No abd pain. No n/v/d/ c. patient failed bedside swallow eval, awaiting ST evaluation. Objective Vitals Vital Signs Date Time Temp Pulse Resp B/P (MAP) Pulse Ox O2 Delivery O2 Flow Rate FiO2 07/18/17 08:00 97.7 75 18 176/77 (110) 95 07/18/17 04:00 68 07/18/17 02:37 98.6 66 18 174/83 (113) 97 07/18/17 00:02 98.6 64 18 178/81 (113) 97 07/18/17 00:00 59 07/17/17 19:53 98.8 66 18 139/69 (92) 96 07/17/17 16:35 69 07/17/17 14:22 99.0 63 18 151/75 (100) 97 07/17/17 12:00 98.8 64 12 164/79 (107) 96 I/O 07/17/17 07/17/17 07/17/17 07/18/17 07/18/17 07/18/17 07:00 15:00 23:00 07:00 15:00 23:00 Intake Total 5 ml Output Total 750 ml 750 ml 875 ml 1350 ml Balance -750 ml -750 ml -870 ml -1350 ml Intake IV Total 5 ml Output Urine Total 750 ml 750 ml 875 ml 1350 ml Result Diagram: 07/17/17 0611 07/17/17 0611 Imaging Last Impressions Abdomen/Pelvis CT 07/16/17 0000 Signed Impressions: Service Date/Time: Sunday, July 16, 2017 19:06 - CONCLUSION: 1. The left kidney is very atrophic. 2. No nephrostomy tube seen on the right although a tract is seen leading from the skin to the kidney. This patient does have a double-J stent on the right. There is mild hydronephrosis on the right which is unchanged from the prior exam. 3. Multiple renal stones on the right. The largest measures 1.5 cm. 4. Calcification associated with the distal cope of the double-J stent within the urinary bladder. I'm unsure if this relates to a bladder stone or significant calcification involving the stent itself. Chetan Flores Jr., MD Objective Remarks GENERAL: This is an elderly lady, looks much older than her age, mostly staring. Nonverbal. Tracks with her eyes. CARDIOVASCULAR: Regular rate and rhythm without murmurs, gallops, or rubs. RESPIRATORY: Poor inspiratory effort. Bilaterally decreased air entry. GASTROINTESTINAL: Abdomen soft, non-tender, nondistended. No guarding. MUSCULOSKELETAL: Extremities without clubbing, cyanosis. Bilateral lower extremity 3+ pitting edema all the way up to thighs. Left upper extremity contracture. NEUROLOGICAL: Awake. Nonverbal. Would not follow commands to perform full neurologic exam. Left upper extremity contracted, motor function 0 out of 5. Lower extremities with chronic edema and chronic impaired mobility. A/P Assessment and Plan Nephrostomy tube dislodgment - S/p replacement by IR. Discussed with Dr Winslow IR patient with medical necessity to have nephrostomy tube replaced. UTI Hx of ESBL/VRE/MRSA - continue on IV Zosyn - follow up on urine culture results Atrial fibrillation - rate controlled - previously on Xarelto but discontinued 06/09/17 due to hematuria - continue on Metoprolol 25mg BID Hypertension - adequate control - continue patient on Norvasc 10mg daily, hydralazine 50mg TID, metoprolol 25mg BID - monitor BP and adjust treatment accordingly CAD CVA with left sided hemiparesis - continue on ASA daily DM - resume home Levemir dose 7u sq - accuchek - ISS CKD - creatinine appears to be near baseline - avoid nephrotoxic agents - monitor kidney function as indicated Anemia - suspect due to chronic disease - chronic, stable Decubitus ulcer on heel and sacral area - chronic - float heels off bed - wound care consult Schizophrenia Bipolar disorder - chronic - resume home meds DVT prophylaxis - hold chemoprophylaxis secondary to IR procedure - bilateral SCDs Dafne Louis MD Jul 18, 2017 08:52
[2017-07-18] MEDS: SODIUM CHLORIDE 0.9% FLUSH 10 ML FLUSH IV FLUSH SCH ×2 (09:00→21:00)
--- NOTE | 2017-07-18 09:36 | RADRPT ---
EXAM DATE/TIME: 07/17/2017 19:36 [place] COMPARISON: PERCUTANEOUS ANTEGRADE PYELO,RT, July 17, 2017, 0:00. INDICATIONS : Patient with a history of dislodged nephrostomy tube, needs replaced. MEDICAL HISTORY : HTN Hyperlipidemia Diabetes CAD AFIB CVA History of sepsis History of carotid artery stenosis History of renal stones Osteoarthritis SURGICAL HISTORY : Coronary angiogram Hysterectomy Tonsillectomy Left hip ORIF Urinary stent Nephrostomy tube placements ENCOUNTER: Subsequent ACUITY: 3 months PAIN SCORE: 0/10 FLUORO TIME: 3.6 minutes IMAGE SERIES: 1 CONTRAST: 10 cc Omnipaque (iohexol) 350 MEDICATION(S): 1.) 1 mg lorazepam (Ativan) IV DEVICE(S): 1.) 8 [place] nephrostomy catheter PROCEDURE : 1. Ultrasound-guided puncture of the kidney. 2. Antegrade percutaneous pyelogram. 3. Percutaneous nephrostomy placement. 4. Conscious sedation with continuous EKG and oximetry monitoring. The patient had an indwelling right nephrostomy tube which was dislodged. The patient is currently se ptic. The patient has a known ureteral stent in place on the right as well. We're asked to replace th e nephrostomy tube. The risks, benefits and alternatives to the procedure were explained to the patient. The patient was not being competent to sign consent. There were multiple attempts made to contact the family member o mina a 12 hour period. The attending physician was contacted via telephone. The attending physician fe lt this was medically emergent due to the patient's sepsis. The site was prepped in sterile fashion. Full sterile technique was used, including cap, mask, ster ile gloves and gown and a large sterile sheet. Hand hygiene and 2% chlorhexidine and/or betadine/alc ohol prep was utilized per protocol for cutaneous antisepsis. Sterile gel and sterile probe cover w ere utilized for ultrasound guidance. The skin and subcutaneous tissues were infiltrated with local anesthetic solution. The tract from the previous tube was identified. A small injection of contrast through the track demo nstrate connection down to the collecting system. A 0.035 angled Glidewire was advanced through the t ract into the kidney. A 8 Australian nephrostomy tube was advanced over the wire. There was immediate ret urn of approximately 50 cc of purulent urine. Analgesia was performed with the prescribed dosages and duration as above in the presence of an [facility] trained radiology nurse to assist in the monitoring of the patient. EKG and oximetry remained stable throughout the procedure. The patient tolerated the procedure well and there were no complic ations. The patient was sent to post anesthesia recovery in stable condition. CONCLUSION: Uncomplicated nephrostomy tube replacement as above. Manpreet Zamudio MD on July 18, 2017 at 9:31 Board Certified Radiologist. This report was verified electronically.
--- NOTE | 2017-07-18 14:29 | PD.CONS ---
Consult Service Palliative Care Consult Requested By Dr. Rolon . Primary Care Physician Nii Stone M.D. . Reason for Consultation a. To assist with evaluation and management of symptoms including: Agitation, suspected pain b. To assist medical decision maker(s) with: better understanding of current medical conditions; weighing benefits/burdens of medical treatment options; making medical treatment decisions. . HPI History of Present Illness This 62-year-old female, with a past history of right MCA stroke with left hemiparesis, diabetes, CAD/stenting, psychiatric illness, anemia, and chronic kidney disease, was sent back to the hospital because her nephrostomy tube was displaced. This appears to be the 27th hospital admission for this patient, many of those admissions for exacerbations of psychiatric illness, but also including admissions for severe sepsis in 2014, elevated troponin last year, the right MCA stroke in 2013, etc. The patient has been a resident at a [facility] for many years, and she currently resides at [facility]. Upon arrival at the emergency department here on 07/16/17, findings included: * Alert, hypertonic legs and left arm * Temp 98.9, pulse 63, respirations 22, blood pressure 167/72, oxygen saturation 96% on room air * White count 10.0, hemoglobin 10.6 * Sodium 139, creatinine 1.75, albumin 3.4 * CT abdomen/pelvis with mild hydronephrosis on the right and an absent nephrostomy tube on the right Following admission, the patient was taken to interventional radiology where the nephrostomy tube was replaced. Some purulent material was noted during the procedure. A speech therapy evaluation on 07/17/17 revealed evidence of some dysphagia and dysarthria. A pured diet was recommended. It is apparent from reading records from the past 14 years that this patient has been a long-term group home resident and has been declining during that time, particularly since her stroke 4 years ago. She reportedly says just a word or 2 now at a time, but does follow commands and apparently makes her needs known. Speech therapy has requested that she be fed. There has been no obvious pain during this hospital stay, and she has not appeared to have hallucinations or marked agitation. Palliative Care was consulted to assist with symptom management, and to engage family in a discussion of the patient's many medical problems, her prognosis, and the benefits and burdens of various treatment choices. . Function/Cognitive Trajectory The patient is a long-term group home resident, and is nonambulatory. She reportedly says a couple words at a time, but does not carry on a conversation. . Review of Systems ROS Limitations: Clinical Condition (ROS from current hospital records and visual appearance/exam), Altered Mental Status (psychiatric illness and large stroke) Constitutional: DENIES: Fever Endocrine: DENIES: Polyuria Eyes: DENIES: Eye inflammation Ears, nose, mouth, throat: DENIES: Epistaxis Respiratory: DENIES: Shortness of breath Cardiovascular: DENIES: Lower Extremity Edema Gastrointestinal: DENIES: Bloody stools, Diarrhea Genitourinary: DENIES: Hematuria Musculoskeletal: DENIES: Joint Swelling Integumentary: DENIES: Rash Hematologic/Lymphatics: DENIES: Bruising Immunologic/Allergic: DENIES: Urticaria Neurologic: COMPLAINS OF: Headache (history of migraines), Localized weakness ( left arm contracted, both legs hypertonic in extension) Psychiatric: DENIES: Hallucinations (none obvious), Agitation (none apparent) Past Family Social History Coded Allergies: *MDRO Multi-Drug Resistant Organism (Verified Adverse Reaction, Unknown, 06/05/17) 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 ESBL + E. 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 Past Medical History * Psychiatric illness, long-standing, multiple prior hospitalizations * Chronic kidney disease * CAD, history of coronary stent * Right MCA stroke 2013, with left hemiparesis * Diabetes * COPD * History of chronic headaches * Anemia * History of atrial fibrillation * Renal calculi * Bilateral nephrostomy tubes * Carotid stenosis * History of decubiti * History of sepsis * Hypertension . Past Surgical History * Coronary angiogram with stenting in RCA and LAD * Hysterectomy * Tonsillectomy * Left hip ORIF 2013 * Right hip ORIF 2005 * Right knee surgery * Urinary stent, nephrostomy tubes * Left ankle ORIF . Reported Medications . Reported Meds & Active Scripts Active Hydrocodone-Acetaminophen 10-325 mg Tab 1 Tab PO Q8H PRN 14 Days Reported Tylenol (Acetaminophen) 325 Mg Tab 650 Mg PO Q6H PRN Percocet (Oxycodone-Acetaminophen) 5-325 mg Tab 1-2 Tab PO Q6H PRN Hydralazine HCl 50 Mg Tablet 50 Mg PO TID Bisacodyl Supp (Bisacodyl) 10 Mg Supp 10 Mg RECTAL DAILY PRN Gabapentin 100 Mg Cap 100 Mg PO BID Ferrous Sulfate 325 Mg (65 Mg Iron) Tablet 325 Mg PO TIDPC Aspirin EC (Aspirin) 81 Mg Tabdr 81 Mg PO DAILY Amlodipine (Amlodipine Besylate) 10 Mg Tab 10 Mg PO DAILY Glytrol (Nut.tx.gluc.intoler,Lac-Fr,Soy) 1,000 Ml Liquid 60 Ml PO TID Levemir Inj (Insulin Detemir) 1,000 unit/ 10 ML Vial 7 Units SQ HS Do not mix with any other Insulin. Thera M Plus (Multivitamins/Minerals Therapeutic) 1 Tab 1 Tab PO DAILY Sertraline (Sertraline HCl) 50 Mg Tab 50 Mg PO DAILY Senna-Tabs (Sennosides) 8.6 Mg Tab 8.6 Mg PO BID Risperidone 0.5 Mg Tab 0.5 Mg PO TID Omeprazole 20 Mg Tab 20 Mg PO DAILY Metoprolol Tartrate 25 Mg Tab 25 Mg PO BID . Current Medications Medications (Trade) Dose Ordered Sig/Sukhi Route Start Time Stop Time Status Last Admin (NS Flush) 2 ml UNSCH PRN IV FLUSH 07/16/17 21:45 (NS Flush) 2 ml BID IV FLUSH 07/17/17 09:00 07/17/17 20:05 (Narcan Inj) 0.4 mg UNSCH PRN IV PUSH 07/16/17 21:45 (Norvasc) 10 mg DAILY PO 07/17/17 09:00 Future Hold 07/17/17 10:16 (Ecotrin Ec) 81 mg DAILY PO 07/17/17 09:00 Future Hold 07/17/17 10:16 (Dulcolax Supp) 10 mg DAILY PRN RECTAL 07/17/17 04:45 (Ferrous Sulfate) 325 mg TIDPC PO 07/17/17 09:30 Future Hold 07/17/17 17:31 (Neurontin) 100 mg BID PO 07/17/17 09:00 Future Hold 07/17/17 10:16 (Apresoline) 50 mg TID PO 07/17/17 09:00 Future Hold 07/17/17 17:31 (Levemir Inj) 7 units HS SQ 07/17/17 21:00 Future Hold (Lopressor) 25 mg BID PO 07/17/17 09:00 Future Hold 07/17/17 10:16 (Theragran M Tab) 1 tab DAILY PO 07/17/17 09:00 Future Hold (Percocet 5-325 Mg) 1 tab Q6H PRN PO 07/17/17 04:45 Future Hold (risperDAL) 0.5 mg TID PO 07/17/17 09:00 Future Hold 07/17/17 17:30 (Senokot) 8.6 mg BID PO 07/17/17 09:00 Future Hold (Zoloft) 50 mg DAILY PO 07/17/17 09:00 Future Hold (Protonix) 20 mg DAILY PO 07/17/17 09:00 Future Hold 07/17/17 10:16 (D50w (Vial) Inj) 50 ml UNSCH PRN IV PUSH 07/17/17 05:15 (Glucagon Inj) 1 mg UNSCH PRN OTHER 07/17/17 05:15 (Lactinex Pkt) 1 gm QID PO 07/17/17 09:00 Future Hold 07/17/17 17:31 Dextrose/Sodium Chloride 1,000 ml @ 75 mls/hr [id number] IV 07/17/17 18:00 07/18/17 06:27 Family History Unknown per EMR, patient unable to provide any information, unable to reach son by telephone . Substance Use Tobacco: Reportedly smokes about half pack per day for many years Alcohol: None reported Prescription med abuse: None reported Illicits: None reported . Psychosocial History The patient is a long-term group home resident. The medical record here indicates that she is . The record was 1 son, Dev Wilson, in the computer. . Spiritual/Cultural Factors Evaluation pending . Health Care Surrogate: Copy in medical record Date completed: 04/17/13 . Health Care Surrogate(s): Patient's son, Dev Wilson . Today's verbally stated goals: Patient unable to provide . Family/friends goals: Unable to reach son by telephone . Ethical and Legal Issues There are no ethical issues that would impact her care or decision-making at this time. The patient lacks capacity for decision-making, and she will not regain that capacity. Her healthcare surrogate form signed in 2012 designates her son Dev Wilson as HCS. . Physical Exam Vital Signs Date Time Temp Pulse Resp B/P (MAP) Pulse Ox O2 Delivery O2 Flow Rate FiO2 1/18/18 12:00 98.7 75 18 120/74 (89) 95 07/18/17 08:00 97.7 75 18 176/77 (110) 95 07/18/17 04:00 68 07/18/17 02:37 98.6 66 18 174/83 (113) 97 07/18/17 00:02 98.6 64 18 178/81 (113) 97 07/18/17 00:00 59 07/17/17 19:53 98.8 66 18 139/69 (92) 96 07/17/17 16:35 69 07/17/17 14:22 99.0 63 18 151/75 (100) 97 07/18/17 07/19/17 19:00 07:00 Output Total 450 ml Balance -450 ml Output Urine Total 50 ml Drainage Total 400 ml Exam CONSTITUTIONAL/GENERAL: This is an adequately nourished patient, in no apparent distress. She is nonverbal while I am in the room TUBES/LINES/DRAINS: Padding in a contracted left hand, nephrostomies SKIN: No jaundice, rashes, or lesions. Ecchymoses on upper extremities. No wounds seen anteriorly. Skin temperature appropriate. Not diaphoretic. HEAD: Atraumatic. Normocephalic. EYES: Left pupil round, right pupil obscured by corneal scarring. Extraocular motions intact. No scleral icterus. No injection or drainage. Fundi not examined. ENT: Unable to assess hearing adequately. Nose without bleeding or purulent drainage. NECK: Trachea midline. Supple, nontender. No palpable thyroid enlargement or nodularity. CARDIOVASCULAR: Regular rate and rhythm without murmurs, gallops, or rubs. No JVD. Peripheral pulses diminished. RESPIRATORY/CHEST: Symmetric, unlabored respirations. Clear to auscultation. Breath sounds equal bilaterally. No wheezes, rales, or rhonchi. GASTROINTESTINAL: Abdomen soft, non-tender, nondistended. No hepato-splenomegaly , or palpable masses. No guarding. Bowel sounds present. GENITOURINARY: Without palpable bladder distension. MUSCULOSKELETAL: Extremities without clubbing, cyanosis, or mottling. There is 1-2+ edema of both feet and lower legs. There is hypertonic extension of both legs/ankles/feet, and flexion contractures with hypertonicity of the left arm/ hand. LYMPHATICS: No palpable cervical or supraclavicular adenopathy. NEUROLOGICAL: Awake and alert. There is hypertonic extension of both legs/ankles /feet, and flexion contractures with hypertonicity of the left arm/hand. She follows simple command of squeezing my fingers with her right hand. The nurse reports the patient says a couple words but I was unable to get her to speak. PSYCHIATRIC: No obvious anxiety/depression. no apparent hallucinations or other psychotic thought process. . Diagnostic Tests Laboratory Laboratory Tests Test 07/16/17 19:30 07/17/17 06:11 White Blood Count 10.0 TH/MM3 (4.0-11.0) 8.0 TH/MM3 (4.0-11.0) Red Blood Count 3.92 MIL/MM3 (4.00-5.30) 3.64 MIL/MM3 (4.00-5.30) Hemoglobin 10.6 GM/DL (11.6-15.3) 10.1 GM/DL (11.6-15.3) Hematocrit 33.2 % (35.0-46.0) 30.7 % (35.0-46.0) Mean Corpuscular Volume 84.7 FL (80.0-100.0) 84.5 FL (80.0-100.0) Mean Corpuscular Hemoglobin 27.0 PG (27.0-34.0) 27.9 PG (27.0-34.0) Mean Corpuscular Hemoglobin Concent 31.9 % (32.0-36.0) 33.0 % (32.0-36.0) Red Cell Distribution Width 14.9 % (11.6-17.2) 14.9 % (11.6-17.2) Platelet Count 231 TH/MM3 (150-450) 211 TH/MM3 (150-450) Mean Platelet Volume 8.8 FL (7.0-11.0) 8.8 FL (7.0-11.0) Neutrophils (%) (Auto) 56.3 % (16.0-70.0) 67.7 % (16.0-70.0) Lymphocytes (%) (Auto) 32.9 % (9.0-44.0) 22.2 % (9.0-44.0) Monocytes (%) (Auto) 5.3 % (0.0-8.0) 5.3 % (0.0-8.0) Eosinophils (%) (Auto) 4.9 % (0.0-4.0) 4.2 % (0.0-4.0) Basophils (%) (Auto) 0.6 % (0.0-2.0) 0.6 % (0.0-2.0) Neutrophils # (Auto) 5.6 TH/MM3 (1.8-7.7) 5.4 TH/MM3 (1.8-7.7) Lymphocytes # (Auto) 3.3 TH/MM3 (1.0-4.8) 1.8 TH/MM3 (1.0-4.8) Monocytes # (Auto) 0.5 TH/MM3 (0-0.9) 0.4 TH/MM3 (0-0.9) Eosinophils # (Auto) 0.5 TH/MM3 (0-0.4) 0.3 TH/MM3 (0-0.4) Basophils # (Auto) 0.1 TH/MM3 (0-0.2) 0.0 TH/MM3 (0-0.2) CBC Comment AUTO DIFF DIFF FINAL Differential Comment AUTO DIFF CONFIRMED Toxic Vacuolation PRESENT (NONE SEEN) Platelet Estimate NORMAL (NORMAL) Platelet Morphology Comment NORMAL (NORMAL) Red Cell Morphology Comment NORMAL (NORMAL) Prothrombin Time 10.3 SEC (9.8-11.6) Prothromb Time International Ratio 1.0 RATIO Activated Partial Thromboplast Time 28.3 SEC (24.3-30.1) Urine Color YELLOW (YELLW/STRAW) Urine Turbidity CLOUDY (CLEAR) Urine pH 7.0 (5.0-8.5) Urine Specific [place] 1.014 (1.002-1.035) Urine Protein 100 mg/dL (NEG-TRACE) Urine Glucose (UA) NEG mg/dL (NEG) Urine Ketones NEG mg/dL (NEG) Urine Occult Blood MOD (NEG) Urine Nitrite NEG (NEG) Urine Bilirubin NEG (NEG) Urine Urobilinogen LESS THAN 2.0 MG/DL (LESS Urine Leukocyte Esterase LARGE (NEG) Urine RBC /hpf (0-3) Urine WBC /hpf (0-5) Urine WBC Clumps MANY (NONE) Urine Squamous Epithelial Cells 4 /hpf (0-5) Urine Bacteria MANY /hpf (NONE) Microscopic Urinalysis Comment CULTURE INDICATED Blood Urea Nitrogen 34 MG/DL (7-18) 33 MG/DL (7-18) Creatinine 1.75 MG/DL (0.50-1.00) 1.63 MG/DL (0.50-1.00) Random Glucose 83 MG/DL (74-106) 82 MG/DL (74-106) Total Protein 8.1 GM/DL (6.4-8.2) Albumin 3.4 GM/DL (3.4-5.0) Calcium Level 9.3 MG/DL (8.5-10.1) 9.0 MG/DL (8.5-10.1) Alkaline Phosphatase 84 U/L (45-117) Aspartate Amino Transf (AST/SGOT) 16 U/L (15-37) Alanine Aminotransferase (ALT/SGPT) 17 U/L (10-53) Total Bilirubin 0.2 MG/DL (0.2-1.0) Sodium Level 139 MEQ/L (136-145) 143 MEQ/L (136-145) Potassium Level 4.3 MEQ/L (3.5-5.1) 4.0 MEQ/L (3.5-5.1) Chloride Level 106 MEQ/L (98-107) 108 MEQ/L (98-107) Carbon Dioxide Level 25.6 MEQ/L (21.0-32.0) 29.6 MEQ/L (21.0-32.0) Anion Gap 7 MEQ/L (5-15) 5 MEQ/L (5-15) Estimat Glomerular Filtration Rate 29 ML/MIN (>89) 32 ML/MIN (>89) Lipase 200 U/L (73-393) Result Diagram: 07/17/17 0611 07/17/17 0611 Microbiology Microbiology Date/Time Source Procedure Growth Status 07/16/17 19:30 Urine Random Urine Urine Culture - Preliminary Pseudomonas Species Resulted Imaging Last Impressions Nephrostomy 07/17/17 0000 Signed Impressions: Service Date/Time: Monday, July 17, 2017 19:36 - CONCLUSION: Uncomplicated nephrostomy tube replacement as above. Manpreet Zamudio MD Abdomen/Pelvis CT 07/16/17 0000 Signed Impressions: Service Date/Time: Sunday, July 16, 2017 19:06 - CONCLUSION: 1. The left kidney is very atrophic. 2. No nephrostomy tube seen on the right although a tract is seen leading from the skin to the kidney. This patient does have a double-J stent on the right. There is mild hydronephrosis on the right which is unchanged from the prior exam. 3. Multiple renal stones on the right. The largest measures 1.5 cm. 4. Calcification associated with the distal cope of the double-J stent within the urinary bladder. I'm unsure if this relates to a bladder stone or significant calcification involving the stent itself. Chetan Flores Jr., MD Procedures Replacement of right nephrostomy tube 07/17/17 . Patient/Family Conference Present at Family Conference: I have been unable to reach the patient's son on either of the phone numbers that I have available. There are no voice mails on either one. . Issues Discussed: These issues will be discussed if I'm able to reach the patient's son: * Palliative care role, purpose, approach * Additional medical, psychosocial, and spiritual history * Patients general health, functional status, and cognitive changes in the months leading up to the current hospitalization * Patient/family understanding of the current medical problems * Patient/family understanding of prognosis * Patients goals of care as best understood from advance directives and/or conversations and/or values * Current medical treatment options and benefits/burdens of those options * Likely scenarios comparing ongoing aggressive care with a transition to comfort measures only * Questions answered to the best of my ability * Palliative care contact information provided Assessment and Plan Disease Oriented Problem List: (1) dislodging of nephrostomy tube, replaced 07/17/17 (2) probable UTI, recurrent (3) psychiatric illness, long history with multiple hospitalizations (4) chronic kidney disease (5) renal calculi with nephrostomy tubes (6) coronary artery disease, history of stents (7) right MCA stroke 2013, with left hemiparesis (8) COPD (9) depression (10) carotid stenosis (11) history of decubiti (12) hypertension Symptom Scale: (1) pain 0-10 Scale: Unable to quantify (history of chronic headaches, stroke with hypertonicity and flexion contracture, bedbound status) Pertinent Non-Medical Issues Psychosocial: Long-term psychiatric illness and long-term group home care. One son is listed in the computer. Spiritual: Unknown Legal: The patient lacks capacity for decision-making, and she will not regain that capacity. Her healthcare surrogate form signed in 2012 designates her son Dev Wilson as HCS. Ethical issues impacting care: None . Important Contacts Son: Dev Wilson [phone], the number indicated on the healthcare surrogate form from 2013; no answer or voicemail on multiple attempts [phone], the number listed in the "contacts" in the computer record; no answer or voicemail on multiple attempts . Prognosis The patient has multiple medical problems and has been declining over the past few years, particularly since her stroke in 2013. However, her nutritional status seems to be adequate and she has no obvious terminal illness at this time. Because of her multiple comorbidities and group home existence, one would not expect her to live very many months or years, but rather to have repeated complications such as infections. . Code Status: Full Code Plan * FULL CODE (I see no indication of any other CODE STATUS in prior records) * DECISION-MAKING: The patient lacks capacity for decision-making, and she will not regain that capacity. Her healthcare surrogate form signed in 2012 designates her son Dev Wilson as HCS. * GOALS: Both phone numbers that I have for the patient's son (Dev Wilson) go unanswered with no voice mails. I will continue trying. * SYMPTOMS: Pain: The patient has a history of chronic headaches, and has bedbound status with history of decubiti as well as flexion contractures and hypertonic limbs, so she probably has musculoskeletal or neuropathic discomfort. At her group home, she had PRN Percocet and scheduled Neurontin, and it would be reasonable to continue those here... * Palliative Care will continue to follow the patient during this hospitalization. . Thank you for the opportunity to participate in the care of Ms. Wilson. Attestation To help prompt me to consider important information that might be impacting today's encounter and assessment, information from prior notes written by myself or my colleagues may have been "brought forward" into today's note. My signature on this note, however, is an attestation that I personally performed the exam, history, and/or decision-making noted today, and, unless otherwise indicated, the interactions with patient, family, and staff as well as the review of records all occurred today. I also attest that the listed assessment and stated plan reflect my best clinical judgment today based on the combination of historical information, prior notes, and today's exam/ interactions. When time spent is documented, it refers only to time spent today by the signer, or if indicated, combined time spent today by collaborating physician/nurse practitioner. Darya Vasquez MD Jul 18, 2017 14:29
[2017-07-18] MEDS: ACETAMINOPHEN/HYDROcodone 325 MG/5 MG TAB PO PRN (16:17)
[2017-07-19] VITALS: PULSE 64
[2017-07-19] MEDS: ACETAMINOPHEN/HYDROcodone 325 MG/5 MG TAB PO PRN (01:50)
[2017-07-19 04:00] VITALS: PULSE 59
[2017-07-19 04:54] VITALS: BP 164/72; PULSE 68; RESP 16; TEMP 98.8; O2SAT 98
[2017-07-19 07:46] VITALS: BP 143/81; PULSE 69; RESP 18; TEMP 99.5; O2SAT 97
[2017-07-19] MEDS ORDERED: cefTRIAXone INJ 1,000 MG in SODIUM CHLORIDE 0.9% INJ 100 ML IV SCH (08:00)
[2017-07-19] MEDS: SODIUM CHLORIDE 0.9% FLUSH 10 ML FLUSH IV FLUSH SCH (09:00)
[2017-07-19] MEDS: DEXT 5%-NACL 0.9% 1000 ML INJ 1,000 ML IV SCH (09:07)
--- NOTE | 2017-07-19 09:18 | HHI.PR ---
Subjective Remarks ore awake and alert. Feels improving. No n/v/d/c. Denies chest pain or sob. Feels better and wants to go back to snf. Objective Vitals Vital Signs Date Time Temp Pulse Resp B/P (MAP) Pulse Ox O2 Delivery O2 Flow Rate FiO2 07/19/17 07:46 99.5 69 18 143/81 (101) 97 07/19/17 04:54 98.8 68 16 164/72 (102) 98 07/19/17 04:00 59 07/19/17 02:50 15 07/19/17 00:00 64 07/18/17 23:05 98.5 86 17 190/89 (122) 98 07/18/17 20:00 98.7 72 17 133/83 (100) 95 07/18/17 20:00 70 07/18/17 16:21 98.6 88 20 185/99 (127) 97 07/18/17 12:00 98.7 75 18 120/74 (89) 95 I/O 07/18/17 07/18/17 07/18/17 07/19/17 07/19/17 07/19/17 07:00 15:00 23:00 07:00 15:00 23:00 Output Total 1350 ml 450 ml 800 ml 850 ml Balance -1350 ml -450 ml -800 ml -850 ml Output Urine Total 1350 ml 50 ml Drainage Total 400 ml 800 ml 850 ml Result Diagram: 07/17/17 0611 07/17/17 0611 Imaging Last Impressions Nephrostomy 07/17/17 0000 Signed Impressions: Service Date/Time: Monday, July 17, 2017 19:36 - CONCLUSION: Uncomplicated nephrostomy tube replacement as above. Manpreet Zamudio MD Abdomen/Pelvis CT 07/16/17 0000 Signed Impressions: Service Date/Time: Sunday, July 16, 2017 19:06 - CONCLUSION: 1. The left kidney is very atrophic. 2. No nephrostomy tube seen on the right although a tract is seen leading from the skin to the kidney. This patient does have a double-J stent on the right. There is mild hydronephrosis on the right which is unchanged from the prior exam. 3. Multiple renal stones on the right. The largest measures 1.5 cm. 4. Calcification associated with the distal cope of the double-J stent within the urinary bladder. I'm unsure if this relates to a bladder stone or significant calcification involving the stent itself. Chetan Flores Jr., MD Objective Remarks GENERAL: This is an elderly lady, looks much older than her age, mostly staring. Nonverbal. Tracks with her eyes. CARDIOVASCULAR: Regular rate and rhythm without murmurs, gallops, or rubs. RESPIRATORY: Poor inspiratory effort. Bilaterally decreased air entry. GASTROINTESTINAL: Abdomen soft, non-tender, nondistended. No guarding. MUSCULOSKELETAL: Extremities without clubbing, cyanosis. Bilateral lower extremity 3+ pitting edema all the way up to thighs. Left upper extremity contracture. NEUROLOGICAL: Awake. Nonverbal. Would not follow commands to perform full neurologic exam. Left upper extremity contracted, motor function 0 out of 5. Lower extremities with chronic edema and chronic impaired mobility. A/P Assessment and Plan Nephrostomy tube dislodgment - S/p replacement by IR. Discussed with Dr Winslow IR patient with medical necessity to have nephrostomy tube replaced. Patient imprpved significantly after tube replaced. UTI Hx of ESBL/VRE/MRSA - continue on IV Zosyn - follow up on urine culture results Atrial fibrillation - rate controlled - previously on Xarelto but discontinued 06/09/17 due to hematuria - continue on Metoprolol 25mg BID Hypertension - adequate control - continue patient on Norvasc 10mg daily, hydralazine 50mg TID, metoprolol 25mg BID - monitor BP and adjust treatment accordingly CAD CVA with left sided hemiparesis - continue on ASA daily DM - resume home Levemir dose 7u sq - accuchek - ISS CKD - creatinine appears to be near baseline - avoid nephrotoxic agents - monitor kidney function as indicated Anemia - suspect due to chronic disease - chronic, stable Decubitus ulcer on heel and sacral area - chronic - float heels off bed - wound care consult Schizophrenia Bipolar disorder - chronic - resume home meds DVT prophylaxis - hold chemoprophylaxis secondary to IR procedure - bilateral SCDs Dafne Louis MD Jul 19, 2017 09:18
[2017-07-19] MEDS ORDERED: PERC5TAB12 PO (09:20)
[2017-07-19] MEDS ORDERED: CEFU1TAB18 PO (09:20)
[2017-07-19] MEDS ORDERED: LACTCHW3 CHEW (09:21)
--- NOTE | 2017-07-19 09:21 | HHI.DS ---
Discharge Summary Admission Date Jul 16, 2017 at 21:26 Discharge Date: Jul 19, 2017 Admitting Diagnosis UTI, nephrostomy tube dislodged (1) CVA (cerebral infarction) ICD Code: I63.9 - CVA (cerebral infarction) Status: Acute (2) Diabetes mellitus ICD Code: E11.9 - Diabetes mellitus Status: Acute (3) dislodging of nephrostomy tube, replaced 07/17/17 (4) Nephrostomy tube displaced ICD Code: T83.022A - Displacement of nephrostomy catheter, initial encounter Status: Acute (5) UTI (urinary tract infection) ICD Code: N39.0 - Urinary tract infection, site not specified Status: Acute Procedures replacement of dislodged nephrostomy tube by IR on 07/17/17 Brief History - From Admission History from ER PA communication, review of medical records, and skilled nursing transfer notes. Patient herself is elderly lady who looks much older than her age. She only answers yes or no questions. However she does not answer most of them though. She has baseline left hemiparesis secondary to prior CVA. Per skilled nursing transfer notes, patient was sent to the hospital for nephrostomy tube dislodgment. Her case was discussed with invasive radiology doctors by ER PA. They have requested for patient to be admitted overnight for observation with plans for nephrostomy to be placed in the morning. Patient herself only complains about lower extremity pains. She has chronic peripheral lower extremity edema. She was recently admitted to our hospital around June 09, 2017. She has history of atrial fibrillation and was on Xarelto. This was stopped for hematuria. CBC/BMP: 07/17/17 0611 07/17/17 0611 Significant Findings Laboratory Tests Test 07/16/17 19:30 07/17/17 06:11 Red Blood Count 3.92 MIL/MM3 (4.00-5.30) 3.64 MIL/MM3 (4.00-5.30) Hemoglobin 10.6 GM/DL (11.6-15.3) 10.1 GM/DL (11.6-15.3) Hematocrit 33.2 % (35.0-46.0) 30.7 % (35.0-46.0) Mean Corpuscular Hemoglobin Concent 31.9 % (32.0-36.0) Eosinophils (%) (Auto) 4.9 % (0.0-4.0) 4.2 % (0.0-4.0) Eosinophils # (Auto) 0.5 TH/MM3 (0-0.4) Toxic Vacuolation PRESENT (NONE SEEN) Urine Turbidity CLOUDY (CLEAR) Urine Protein 100 mg/dL (NEG-TRACE) Urine Occult Blood MOD (NEG) Urine Leukocyte Esterase LARGE (NEG) Urine WBC Clumps MANY (NONE) Urine Bacteria MANY /hpf (NONE) Blood Urea Nitrogen 34 MG/DL (7-18) 33 MG/DL (7-18) Creatinine 1.75 MG/DL (0.50-1.00) 1.63 MG/DL (0.50-1.00) Estimat Glomerular Filtration Rate 29 ML/MIN (>89) 32 ML/MIN (>89) Chloride Level 108 MEQ/L (98-107) Imaging Last Impressions Nephrostomy 07/17/17 0000 Signed Impressions: Service Date/Time: Monday, July 17, 2017 19:36 - CONCLUSION: Uncomplicated nephrostomy tube replacement as above. Manpreet Zamudio MD Abdomen/Pelvis CT 07/16/17 0000 Signed Impressions: Service Date/Time: Sunday, July 16, 2017 19:06 - CONCLUSION: 1. The left kidney is very atrophic. 2. No nephrostomy tube seen on the right although a tract is seen leading from the skin to the kidney. This patient does have a double-J stent on the right. There is mild hydronephrosis on the right which is unchanged from the prior exam. 3. Multiple renal stones on the right. The largest measures 1.5 cm. 4. Calcification associated with the distal cope of the double-J stent within the urinary bladder. I'm unsure if this relates to a bladder stone or significant calcification involving the stent itself. Chetan Flores Jr., MD PE at Discharge GENERAL: This is an elderly lady, looks much older than her age, mostly staring. Nonverbal. Tracks with her eyes. CARDIOVASCULAR: Regular rate and rhythm without murmurs, gallops, or rubs. RESPIRATORY: Poor inspiratory effort. Bilaterally decreased air entry. GASTROINTESTINAL: Abdomen soft, non-tender, nondistended. No guarding. MUSCULOSKELETAL: Extremities without clubbing, cyanosis. Bilateral lower extremity 3+ pitting edema all the way up to thighs. Left upper extremity contracture. NEUROLOGICAL: Awake. Nonverbal. Would not follow commands to perform full neurologic exam. Left upper extremity contracted, motor function 0 out of 5. Lower extremities with chronic edema and chronic impaired mobility. Hospital Course Nephrostomy tube dislodgment- S/p replacement by IR. Discussed with Dr Winslow IR patient with medical necessity to have nephrostomy tube replaced. Patient imprpved significantly after tube replaced. UTI,. Received IV Zosyn. Urine culture pseudomonas, discharged on ceftin Atrial fibrillation, rate controlled. previously on Xarelto but discontinued 04/16 due to hematuria, continue on Metoprolol 25mg BID continue patient on Norvasc 10mg daily, hydralazine 50mg TID, metoprolol 25mg BID Hypertension, adequate control on home meds CAD/ CVA with left sided hemiparesis, continue on ASA daily DM, resume home Levemir dose 7u sq CKD, creatinine appears to be near baseline, avoid nephrotoxic agents, monitor kidney function as indicated Anemia, suspect due to chronic disease Decubitus ulcer on heel and sacral area, wound care consult Schizophrenia/ Bipolar disorder, chronic, resume home meds Improved, DC to snf instable condition to follow up as OP with pcp and consultants Pt Condition on Discharge: Stable Discharge Disposition: Discharge to SNF Discharge Time: > 30 minutes Discharge Instructions DIET: Follow Instructions for: Heart Healthy Diet, Diabetic Diet Speech Therapy-Diet Recommends: Pureed, [place] Thickened Liquids Activities you can perform: Regular-No Restrictions Follow up Referrals: PCP Follow-up - 2-3 Days New Medications: Cefuroxime (Ceftin) 250 Mg Tab 250 MG PO BID for uti for 7 Days, #14 TAB Lactobacillus Acidophilus (Lactinex) 1 Chew 1 TAB CHEW DAILY for Nutritional Supplement, #30 TAB 0 Refills Continued Medications: Acetaminophen (Tylenol) 325 Mg Tab 650 MG PO Q6H PRN for PAIN/DISCOMFORT/TEMP >101, TAB 0 Refills Amlodipine (Amlodipine) 10 Mg Tab 10 MG PO DAILY for Blood Pressure Management, #30 TAB [address] (Aspirin EC) 81 Mg Tabdr 81 MG PO DAILY, TAB 0 Refills Bisacodyl Supp (Bisacodyl Supp) 10 Mg Supp 10 MG RECTAL DAILY PRN for CONSTIPATION, SUPP 0 Refills Ferrous Sulfate (Ferrous Sulfate) 325 Mg (65 Mg Iron) Tablet 325 MG PO TIDPC for Nutritional Supplement, #90 TAB 0 Refills Gabapentin (Gabapentin) 100 Mg Cap 100 MG PO BID for Neuropathy Pain, #60 CAP 0 Refills Hydralazine HCl (Hydralazine HCl) 50 Mg Tablet 50 MG PO TID Insulin Detemir Inj (Levemir Inj) 1,000 unit/ 10 ML Vial 7 UNITS SQ HS for Blood Sugar Management, VIAL 0 Refills Do not mix with any other Insulin. Metoprolol Tartrate (Metoprolol Tartrate) 25 Mg Tab 25 MG PO BID, #60 TAB 0 Refills Multiple Vitamins W/ Minerals (Thera M Plus) 1 Tab 1 TAB PO DAILY for Nutritional Supplement, TAB 0 Refills Nut.tx.gluc.intoler,Lac-Fr,Soy (Glytrol) 1,000 Ml Liquid 60 ML PO TID for Nutritional Supplement Omeprazole (Omeprazole) 20 Mg Tab 20 MG PO DAILY, #30 TAB 0 Refills Oxycodone-Acetaminophen (Percocet) 5-325 mg Tab 1-2 TAB PO Q6H PRN for MILD TO SEVERE PAIN, #20 TAB 0 Refills (This prescription has been renewed) Risperidone (Risperidone) 0.5 Mg Tab 0.5 MG PO TID, #30 TAB 0 Refills Sennosides (Senna-Tabs) 8.6 Mg Tab 8.6 MG PO BID for Constipation, #30 TAB 0 Refills Sertraline (Sertraline) 50 Mg Tab 50 MG PO DAILY, #30 TAB 0 Refills Discontinued Medications: Hydrocodone-Acetaminophen (Hydrocodone-Acetaminophen) 10-325 mg Tab 1 TAB PO Q8H PRN for PAIN for 14 Days, #12 TAB 0 Refills Dafne Louis MD Jul 19, 2017 09:21
[2017-07-19] MEDS: ASPIRIN EC 81 MG TABEC PO SCH (10:18)
[2017-07-19] MEDS: hydrALAZINE HCL 50 MG TAB PO SCH (10:18)
[2017-07-19] MEDS: SENNOSIDES 8.6 MG TAB PO SCH (10:18)
[2017-07-19] MEDS: risperiDONE 0.5 MG TAB PO SCH (10:19)
[2017-07-19] MEDS: METOPROLOL TARTRATE 25 MG TAB PO SCH (10:19)
[2017-07-19] MEDS: FERROUS SULFATE 325 MG (65 MG ELEMENTAL IRON) TAB PO SCH (10:19)
[2017-07-19] MEDS: PANTOPRAZOLE SOD 20 MG DELAYED RELEASE TAB PO SCH (10:19)
[2017-07-19] MEDS: GABAPENTIN 100 MG CAP PO SCH (10:19)
[2017-07-19] MEDS: LACTOBACILLUS ACIDOPHILUS 1 GM PACKET PO SCH (10:19)
[2017-07-19] MEDS: MULTIVITAMINS/MINERALS THERAPEUTIC TAB PO SCH (10:19)
[2017-07-19] MEDS: SERTRALINE HCL 50 MG TAB PO SCH (10:19)
--- NOTE | 2017-07-19 11:18 | PD.WCN.NOT ---
Wound Consult Description: Received consult from Eli KITCHEN for evaluation of pressure injury to sacrum and L heel Communicated with: FARNAZ ROCKWELL and Doctor Louis Recommendation: 1.Please keep sacral, buttocks and coccyx areas clean and dry. 2. Please turn patient every 2 hours and PRN for comfort and offloading pressure from chung prominences 3. Please obtain heel raiser boots for patient to offload pressure from heel areas Additional Information: Patient seen on G pod for evaluation of pressure injury to sacrum and L heel. Assessed heels with FARNAZ Hernandez assisting. Patient presents with bilateral foot drop, Blanchable Erythema noted to L heel. Patinet was then positioned to R side and brief was removed to reveal scar tissue to the L buttock area, but otherwise skin is unremarkable to sacral and coccyx areas. No pressure injuries are seen at this time. Isabelle Wilson [facility] Jul 19, 2017 11:18
== END 2017-07-19 17:03 | disposition home or self-care (01) ==
LOC: NEPC 17:05 → NEDA 21:26 → NEDH 07-17 02:08 → NEPGCP 07-17 14:19
PROVIDERS: ADMIT Hospitalist; ATTEND Hospitalist
DX: T83.022A Displacement of nephrostomy catheter, initial encounter (principal); T83.511A Infection and inflammatory reaction due to indwelling urethral catheter, initial encounter; N39.0 Urinary tract infection, site not specified; B96.5 Pseudomonas (aeruginosa) (mallei) (pseudomallei) as the cause of diseases classified elsewhere; I69.354 Hemiplegia and hemiparesis following cerebral infarction affecting left non-dominant side; I69.320 Aphasia following cerebral infarction; N13.2 Hydronephrosis with renal and ureteral calculous obstruction; M21.371 Foot drop, right foot; M21.372 Foot drop, left foot; L89.609 Pressure ulcer of unspecified heel, unspecified stage; I12.9 Hypertensive chronic kidney disease with stage 1 through stage 4 chronic kidney disease, or unspecified chronic kidney disease; N18.9 Chronic kidney disease, unspecified; E11.22 Type 2 diabetes mellitus with diabetic chronic kidney disease; E78.5 Hyperlipidemia, unspecified; I25.10 Atherosclerotic heart disease of native coronary artery without angina pectoris; I48.91 Unspecified atrial fibrillation; F17.210 Nicotine dependence, cigarettes, uncomplicated; F20.9 Schizophrenia, unspecified; F31.9 Bipolar disorder, unspecified; J44.9 Chronic obstructive pulmonary disease, unspecified; M19.90 Unspecified osteoarthritis, unspecified site; Z79.01 Long term (current) use of anticoagulants; Y73.2 Prosthetic and other implants, materials and accessory gastroenterology and urology devices associated with adverse incidents; Y84.6 Urinary catheterization as the cause of abnormal reaction of the patient, or of later complication, without mention of misadventure at the time of the procedure; Z95.5 Presence of coronary angioplasty implant and graft; Z90.710 Acquired absence of both cervix and uterus
CPT/HCPCS: 50432; 74176; 80048; 80053; 81001; 82948; 83690; 85025; 85610; 85730; 87077; 87086; 87186; 92526; 92610; 96361; 96365; 96374; 96375; 96376; 99285; C1729; C1769; G0378; G8996; G8997; J0696; J2060; J2270; J2543; J3010; J7030; J7040; J7042; Q9967

== ENCOUNTER 2017-08-19 11:16 | Emergency (ER) | payer MEDICARE, OTHER ==
[~2017-08-19 11:16] MED LIST changes: +CEFU1TAB18 PO; -EPIN1INJ21 IV PUSH; -EPIN1INJ21 SQ; -HYDR-3583 PO; +HYDR-3800 PO; -HYDR-3801 PO; -INVA1INJ IV; +LACTCHW3 CHEW; -LORA-392 PO; +PERC5TAB12 PO; -SOLU250I IV PUSH; +TYLE325T PO
[2017-08-19] MEDS ORDERED: IOHEXOL 350 MG/ML 10 ML VIAL (for RAD DIAG) IVCONTRAST ONE (11:17)
[2017-08-19 11:38] VITALS: BP 157/76; PULSE 58; RESP 19; TEMP 99.4; O2SAT 97
--- NOTE | 2017-08-19 11:57 | PD ---
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 [facility] neph[facility]omy tube dislodged today. Patient is not able to provide any history or review of systems. She is nonverbal and has had a massive stroke in the past. Her nephrostomy tube was replaced by radiology one month ago and is now pulled out again. PFSH Past Medical History Anemia: Yes Arthritis: Yes Asthma: No Atrial Fibrillation: Yes Blood Disorders: No Bipolar Disorder: Yes Anxiety: Yes Depression: Yes Heart Rhythm Problems: Yes (TACHYCARDIA ) Cancer: No Cardiac Catheterization: Yes (2007) Cardiovascular Problems: Yes (HTN/A-FIB) High Cholesterol: No Chemotherapy: No Chest Pain: No Congestive Heart Failure: No COPD: No Cerebrovascular Accident: Yes Coronary Artery Disease: Yes Diabetes: Yes Diminished Hearing: No GERD: No Glaucoma: No Genitourinary: Yes (HYDRONEPHROSIS, KIDNEY CALCULUS ) Headaches: Yes (unknown) Hepatitis: No Hiatal Hernia: No Hypertension: Yes (unknown) Kidney Stones: No Musculoskeletal: Yes Neurologic: Yes Psychiatric: Yes Immunizations Current: No Migraines: No Myocardial Infarction: No Radiation Therapy: No Renal Failure: No Schizophrenia: Yes Seizures: No Sickle Cell Disease: No Sleep Apnea: No Thyroid Disease: No Ulcer: No PNEUMOCCOCAL Vaccine (Year): 1 Menopausal: Yes : 1 Para: 1 Past Surgical History Abdominal Surgery: Yes (HYSTERECTOMY) AICD: No Appendectomy: No Arteriovenous Shunt: No Body Medical Devices: CARDIAC STENT Section: Yes Cholecystectomy: No Coronary Stent: Yes Endocrine Surgery: No Gynecologic Surgery: Yes (HYSTRECTOMY ) Hysterectomy: Yes (1988) Insulin Pump: No Joint Replacement: No Neurologic Surgery: Yes (UNKNOWN) Oral Surgery: Yes (EXTRACTION) Pacemaker: No Tonsillectomy: Yes Other Surgery: Yes Social History Alcohol Use: No Tobacco Use: No Substance Use: No Allergies-Medications (Allergen,Severity, Reaction): Coded Allergies: *MDRO Multi-Drug Resistant Organism (Verified Adverse Reaction, Unknown, ) 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 ESBL + E. 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 Reported Meds & Prescriptions Reported Meds & Active Scripts Active Lactinex (Lactobacillus Acidophilus) 1 Chew 1 Tab CHEW DAILY Percocet (Oxycodone-Acetaminophen) 5-325 mg Tab 1-2 Tab PO Q6H PRN Reported Cefepime Inj (Cefepime HCl) 1 Gm/50 Ml Bagp 1 Gm IV Q12H Tylenol (Acetaminophen) 325 Mg Tab 650 Mg PO Q6H PRN Hydralazine HCl 50 Mg Tablet 50 Mg PO TID Bisacodyl Supp (Bisacodyl) 10 Mg Supp 10 Mg RECTAL DAILY PRN Gabapentin 100 Mg Cap 100 Mg PO BID Ferrous Sulfate 325 Mg (65 Mg Iron) Tablet 325 Mg PO TIDPC Aspirin EC (Aspirin) 81 Mg Tabdr 81 Mg PO DAILY Amlodipine (Amlodipine Besylate) 10 Mg Tab 10 Mg PO DAILY Glytrol (Nut.tx.gluc.intoler,Lac-Fr,Soy) 1,000 Ml Liquid 60 Ml PO TID Levemir Inj (Insulin Detemir) 1,000 unit/ 10 ML Vial 7 Units SQ HS Do not mix with any other Insulin. Thera M Plus (Multivitamins/Minerals Therapeutic) 1 Tab 1 Tab PO DAILY Sertraline (Sertraline HCl) 50 Mg Tab 50 Mg PO DAILY Senna-Tabs (Sennosides) 8.6 Mg Tab 8.6 Mg PO BID Risperidone 0.5 Mg Tab 0.5 Mg PO TID Omeprazole 20 Mg Tab 20 Mg PO DAILY Metoprolol Tartrate 25 Mg Tab 25 Mg PO BID Review of Systems ROS Limitations: Clinical Condition, Poor Historian Physical Exam Narrative GENERAL: Nonverbal obtunded well-developed patient in no apparent distress. SKIN: Focused skin assessment reveals a diffuse scaly rash on the back. Skin is Warm and dry. HEAD: Atraumatic. Normocephalic. EYES: Pupils equal and round. No scleral icterus. No injection or drainage. ENT: No nasal bleeding or discharge. Mucous membranes pink and moist. NECK: Trachea midline. No JVD. CARDIOVASCULAR: Regular rate and rhythm. No murmur appreciated. RESPIRATORY: No accessory muscle use. Clear to auscultation. Breath sounds equal bilaterally. GASTROINTESTINAL: Abdomen soft, non-tender, nondistended. Hepatic and splenic margins not palpable. MUSCULOSKELETAL: No obvious deformities. No clubbing. No cyanosis. No edema. Has a PICC line in place. There is a hole in her right flank were nephrostomy tube was. NEUROLOGICAL: Not particularly responsive. Impossible to accurately check strength or sensation. Nonverbal . PSYCHIATRIC: Impossible to accurately gauge mood and affect; insight and judgment poor . Data Data Last Documented VS Vital Signs Date Time Temp Pulse Resp B/P (MAP) Pulse Ox O2 Delivery O2 Flow Rate FiO2 08/19/17 11:38 99.4 58 19 157/76 (103) 97 Orders Orders Isolation 08,20 (08/19/17 11:48) Equip, Isolation Cart (08/19/17 11:48) Fentanyl Inj (Fentanyl Inj) (08/19/17 16:10) Midazolam Inj (Versed Inj) (08/19/17 16:10) Levofloxacin 500 Mg Premix Inj (Levaquin (08/19/17 16:22) Nephrostomy (08/19/17 ) Iohexol 350 Inj (Omnipaque 350 Inj) (08/19/17 11:17) [facility] Medical Decision Making Medical Screen Exam Complete: Yes Emergency Medical Condition: Yes Medical Record Reviewed: Yes Differential Diagnosis Displaced nephrostomy tube, malfunction, replacement needed Narrative Course I have reviewed the patient's electronic medical record. Reviewed her discharge summary from last month. Her nephrostomy is replaced one month ago I called and spoke with radiology specials They're going to replace the nephrostomy tube today. They report they don't need any specific lab studies. I did note to them that she was on a blood thinner Patient's power of banking attorney was not available by phone to obtain consent. The patient herself cannot provide any consent Radiology wouldn't do the procedure and less I then a note saying he was medically necessary which I do believe it is. I have discussed sign with Dr. Hdz. Patient is currently now in radiology getting a replacement nephrostomy tube. She will come back to the emergency room and after any sedation has worn off she will be sent [facility] to the [facility]. Diagnosis Primary Impression: Displacement of nephrostomy catheter, initial encounter Additional Instructions: Follow-up with [facility] Med/Other Pt SpecificInfo: Other Disposition: 03 DISCHARGE TO SNF Condition: Stable Don Watts MD Aug 19, 2017 11:56
[2017-08-19] MEDS ORDERED: CEFE1INJ2 IV (12:09)
[2017-08-19] MEDS ORDERED: MIDAZOLAM HCL 2 MG/2 ML VIAL ONE (16:10)
[2017-08-19] MEDS ORDERED: LEVOFLOXACIN 500 MG PREMIX INJ 100 ML IV ONE (16:22)
[2017-08-19 16:56] VITALS: BP 145/73; PULSE 95; RESP 16; O2SAT 97
--- NOTE | 2017-08-19 16:56 | RADRPT ---
EXAM DATE/TIME: 08/19/2017 17:08 [place] COMPARISON: NEPHROSTOMY, RIGHT, July 17, 2017, 19:36. 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 Patient present s secondary to accidental removal. MEDICAL HISTORY : Anemia Arthritis Afib Tackycardia HTN Stroke CAD Kidney calculus SURGICAL HISTORY : Hysterectomy Cardia stent Tonsillectomy ENCOUNTER: Subsequent ACUITY: 1 day PAIN SCORE: Non-responsive FLUORO TIME: 5.2 minutes IMAGE SERIES: 0 SEDATION TIME: 40 minutes CONTRAST: 30 cc Omnipaque (iohexol) 350 MEDICATION(S): 1.) 1.5 mg midazolam (Versed) IV 2.) 75 mcg fentanyl (Sublimaze) IV Intra-procedural antibiotics were given as prescribed above. DEVICE(S): 1.) 10 Czech nephrostomy catheter PROCEDURE : 1. Ultrasound-guided puncture of the kidney. 2. Antegrade percutaneous pyelogram. 3. Percutaneous nephrostomy placement. 4. Conscious sedation with continuous EKG and oximetry monitoring. The risks, benefits and alternatives to the procedure were explained and verbal and written consent w as obtained. The site was prepped in sterile fashion. Full sterile technique was used, including ca p, mask, sterile gloves and gown and a large sterile sheet. Hand hygiene and 2% chlorhexidine and/or betadine/alcohol prep was utilized per protocol for cutaneous antisepsis. Sterile gel and sterile probe cover were utilized for ultrasound guidance. The skin and subcutaneous tissues were infiltrate d with local anesthetic solution. Multiple attempts to advance a 4 Czech dilator through the existing nephrostomy tract were unsuccess ful. Therefore, this she was made to place a new nephrostomy catheter. Ultrasound evaluation did not demonstrate the calyces are sufficiently for ultrasound guided access. Therefore, a 21 gauge needle was advanced into the renal pelvis under fluoroscopic guidance. The pelv is was subsequently opacified with contrast and a posterior pole calyx was targeted with a blunt tip Jiménez needle. Access was obtained following a single puncture. Serial dilatation was performed and a prescribed nephrostomy tube was placed within the renal pelvis and sutured in place. Conscious sedation was performed with the prescribed dosages and duration as above in the presence of an independent trained radiology nurse to assist in the monitoring of the patient. EKG and oximetry remained stable throughout the procedure. The patient tolerated the procedure well and there were n o complications. The patient was sent to post anesthesia recovery in stable condition. CONCLUSION: 1. Existing nephrostomy tract is occluded and was not able to be traversed despite multiple attempts. 2. Uncomplicated placement of new 10 Czech pectineus nephrostomy catheter. Jadon Canales MD on August 19, 2017 at 16:49 Board Certified Radiologist. This report was verified electronically.
[2017-08-19 17:19] VITALS: BP 162/94; PULSE 90; RESP 18; O2SAT 98
[2017-08-19 17:45] VITALS: BP 150/85; PULSE 85; RESP 18; O2SAT 95
[2017-08-19 18:22] VITALS: BP 136/65; PULSE 80; RESP 16; O2SAT 95
[2017-08-20 00:28] VITALS: BP 117/57; PULSE 76; RESP 18; O2SAT 97
[2017-08-20 03:30] VITALS: BP 122/59; PULSE 83; RESP 18; O2SAT 96
[2017-08-20 07:40] VITALS: BP 130/65; PULSE 80; RESP 16; O2SAT 96
== END 2017-08-20 10:45 ==
LOC: NEPD 11:16
DX: T83.022A Displacement of nephrostomy catheter, initial encounter (principal); I10 Essential (primary) hypertension; I25.10 Atherosclerotic heart disease of native coronary artery without angina pectoris; I69.30 Unspecified sequelae of cerebral infarction; I48.91 Unspecified atrial fibrillation; E11.9 Type 2 diabetes mellitus without complications; F31.9 Bipolar disorder, unspecified; F20.9 Schizophrenia, unspecified; Z95.5 Presence of coronary angioplasty implant and graft; Z79.4 Long term (current) use of insulin; Z79.82 Long term (current) use of aspirin; Z79.899 Other long term (current) drug therapy
CPT/HCPCS: 50432; 96374; 99152; 99153; 99284; C1729; C1769; C1894; J1956; J2250; J3010; Q9967

== ENCOUNTER 2017-11-10 05:53 | Inpatient (IN) | payer MEDICARE, OTHER ==
[2017-11-10] VITALS (10 sets, daily range): BP systolic 95–147; BP diastolic 56–87; PULSE 57–107; RESP 16–18; TEMP 98–101.4; O2SAT 95–99
[~2017-11-10] VITALS: Ht 172.7 cm; Wt 89.3 kg
[~2017-11-10 05:53] MED LIST changes: -CEFU1TAB18 PO; +FENT12DI T-DERMAL; -LACTCHW3 CHEW; +LACTTAB13 PO
[2017-11-10] MEDS ORDERED: SODIUM CHLOR 0.9% 1000 ML INJ 100 ML IV ONE (06:01)
[2017-11-10] MEDS ORDERED: SODIUM CHLOR 0.9% 1000 ML INJ 1,000 ML IV ONE ×2 (06:01)
[2017-11-10] MEDS ORDERED: PIPERACIL-TAZO 4.5 GM PREMIX 100 ML IV STA (06:01)
[2017-11-10] MEDS ORDERED: ACETAMINOPHEN 650 MG SUPP RECTAL ONE (06:15)
[2017-11-10 06:25] LABS: HEMATOCRIT 24.9 % (35.0-46.0); HEMOGLOBIN 7.7 GM/DL (11.6-15.3); MEAN CELL VOLUME 81.1 FL (80.0-100.0); MEAN CORPUSCULAR HEMOGLOBIN 25.2 PG (27.0-34.0); PLATELET COUNT 236 TH/MM3 (150-450); RED BLOOD COUNT 3.07 MIL/MM3 (4.00-5.30); RED CELL DISTRIBUTION WIDTH 17.1 % (11.6-17.2); WHITE BLOOD COUNT 18.2 TH/MM3 (4.0-11.0)
[2017-11-10 06:40] LABS: ALBUMIN 2.6 GM/DL (3.4-5.0); ALT (GPT) 14 U/L (10-53); AST (GOT) 13 U/L (15-37); BICARBONATE 23.9 MEQ/L (21.0-32.0); BLOOD UREA NITROGEN 61 MG/DL (7-18); CHLORIDE 110 MEQ/L (98-107); CREATININE 3.97 MG/DL (0.50-1.00); GLOMERULAR FILTRATION RATE 11 ML/MIN (>89); GLUCOSE,RANDOM 165 MG/DL (74-106); SODIUM (NA) 144 MEQ/L (136-145)
--- NOTE | 2017-11-10 06:41 | PD ---
HPI Chief Complaint: Fever Time Seen by Provider: 06:01 Travel History International Travel<30 days: No Contact w/Intl Traveler<30days: No Traveled to known affect area: No History of Present Illness HPI 63-year-old female arrives by EMS. She is a resident at [facility]. She is they are due to CVA in addition to a recent septic episode. Evidently she was encountered this morning by personnel with gurgling respirations and tachypnea with an O2 sat in the 50s. Patient is nonverbal in the ED limiting history. EMS reports an axillary temp of 102.9. Nonrebreather was applied and the O2 sat increased to 100%. Heart rate 107 with a blood pressure of 147/73. Strong odor of urine was noted by EMS. PFSH Past Medical History Anemia: Yes Arthritis: Yes Asthma: No Atrial Fibrillation: Yes Blood Disorders: No Bipolar Disorder: Yes Anxiety: Yes Depression: Yes Heart Rhythm Problems: Yes (TACHYCARDIA ) Cancer: No Cardiac Catheterization: Yes (2007) Cardiovascular Problems: Yes (HTN/A-FIB) High Cholesterol: No Chemotherapy: No Chest Pain: No Congestive Heart Failure: No COPD: No Cerebrovascular Accident: Yes (LEFT SIDE DEFICIT) Coronary Artery Disease: Yes Diabetes: Yes Patient Takes Glucophage: No Diminished Hearing: No GERD: No Glaucoma: No Genitourinary: Yes (HYDRONEPHROSIS, KIDNEY CALCULUS ) Headaches: Yes Hepatitis: No Hiatal Hernia: No Hypertension: Yes (unknown) Kidney Stones: No Musculoskeletal: Yes Neurologic: Yes Psychiatric: Yes Immunizations Current: No Migraines: No Myocardial Infarction: No Radiation Therapy: No Renal Failure: No Schizophrenia: Yes Seizures: No Sickle Cell Disease: No Sleep Apnea: No Thyroid Disease: No Ulcer: No PNEUMOCCOCAL Vaccine (Year): 1 Menopausal: Yes : 1 Para: 1 Past Surgical History Abdominal Surgery: Yes (HYSTERECTOMY) AICD: No Appendectomy: No Arteriovenous Shunt: No Body Medical Devices: CARDIAC STENT Section: Yes Cholecystectomy: No Coronary Stent: Yes Endocrine Surgery: No Gynecologic Surgery: Yes (HYSTRECTOMY ) Hysterectomy: Yes (1988) Insulin Pump: No Joint Replacement: No Neurologic Surgery: Yes (UNKNOWN) Oral Surgery: Yes (EXTRACTION) Pacemaker: No Tonsillectomy: Yes Other Surgery: Yes Social History Alcohol Use: No Tobacco Use: No Substance Use: No Allergies-Medications (Allergen,Severity, Reaction): Coded Allergies: *MDRO Multi-Drug Resistant Organism (Verified Adverse Reaction, Unknown, ) 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 ESBL + E. 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 Reported Meds & Prescriptions Reported Meds & Active Scripts Active Percocet (Oxycodone-Acetaminophen) 5-325 mg Tab 1-2 Tab PO Q6H PRN Reported Floranex (Lactobacillus Acidophilus) 1 Tab 4 Tab PO QID Fentanyl Patch 72 HR (Fentanyl) 12 Mcg/Hr Patch 1 Patch T-DERMAL Q72H Remove old patch when new one placed. Tylenol (Acetaminophen) 325 Mg Tab 650 Mg PO Q6H PRN Hydralazine HCl 50 Mg Tablet 50 Mg PO TID Bisacodyl Supp (Bisacodyl) 10 Mg Supp 10 Mg RECTAL DAILY PRN Gabapentin 100 Mg Cap 100 Mg PO BID Ferrous Sulfate 325 Mg (65 Mg Iron) Tablet 325 Mg PO TIDPC Aspirin EC (Aspirin) 81 Mg Tabdr 81 Mg PO DAILY Amlodipine (Amlodipine Besylate) 10 Mg Tab 10 Mg PO DAILY Glytrol (Nut.tx.gluc.intoler,Lac-Fr,Soy) 1,000 Ml Liquid 60 Ml PO TID Levemir Inj (Insulin Detemir) 1,000 unit/ 10 ML Vial 7 Units SQ HS Do not mix with any other Insulin. Thera M Plus (Multivitamins/Minerals Therapeutic) 1 Tab 1 Tab PO DAILY Sertraline (Sertraline HCl) 50 Mg Tab 50 Mg PO DAILY Senna-Tabs (Sennosides) 8.6 Mg Tab 8.6 Mg PO BID Risperidone 0.5 Mg Tab 0.5 Mg PO TID Omeprazole 20 Mg Tab 20 Mg PO DAILY Metoprolol Tartrate 25 Mg Tab 25 Mg PO BID Review of Systems ROS Limitations: Poor Historian General / Constitutional: Positive: Fever Physical Exam Narrative GENERAL: 62 yo-year-old female moderate distress, odor of urine present Axillary temp 102.9 Vital Signs Date Time Temp Pulse Resp B/P (MAP) Pulse Ox O2 Delivery O2 Flow Rate FiO2 11/10/17 06:16 94 Nasal Cannula 3.00 11/10/17 06:02 100 Nasal Cannula 2.00 11/10/17 05:56 107 16 147/73 (97) SKIN: Warm and dry. HEAD: Atraumatic. Normocephalic. EYES: Pupils equal and round. No scleral icterus. No injection or drainage. ENT: No nasal bleeding or discharge. Mucous membranes pink and moist. NECK: Trachea midline. No JVD. CARDIOVASCULAR: Tachycardia. Regular rhythm. RESPIRATORY: No accessory muscle use. Clear to auscultation. Breath sounds equal bilaterally. GASTROINTESTINAL: Abdomen is distended. Groaning is noted with palpation. MUSCULOSKELETAL: Extremities without clubbing, cyanosis, or edema. No obvious deformities. NEUROLOGICAL: Patient groans out loud. There is a verbal response to pain. PSYCHIATRIC: Unable to assess Data Data Last Documented VS Vital Signs Date Time Temp Pulse Resp B/P (MAP) Pulse Ox O2 Delivery O2 Flow Rate FiO2 11/10/17 06:16 94 Nasal Cannula 3.00 11/10/17 05:56 107 16 147/73 (97) Orders Orders Sepsis Workup Initiated (11/10/17 ) Complete Blood Count With Diff (11/10/17 06:01) Comprehensive Metabolic Panel (11/10/17 06:01) Lactic Acid Sepsis Protocol (11/10/17 06:01) Urinalysis - C+S If Indicated (11/10/17 06:01) Blood Culture (11/10/17 06:01) Chest, Single Ap (11/10/17 06:01) Blood Glucose (11/10/17 06:01) Ecg Monitoring (11/10/17 06:01) Iv Access Insert/Monitor (11/10/17 06:01) Oximetry (11/10/17 06:01) Oxygen Administration (11/10/17 06:01) Acetaminophen Supp (Tylenol Supp) (11/10/17 06:15) Ct Abd/Pel W Iv Contrast(Rout) (11/10/17 06:01) Piperacil-Tazo 4.5 Gm Premix (Zosyn 4.5 (11/10/17 06:01) Sodium Chlor 0.9% 1000 Ml Inj (Ns 1000 M (11/10/17 06:01) Sodium Chlor 0.9% 1000 Ml Inj (Ns 1000 M (11/10/17 06:01) Sodium Chlor 0.9% 1000 Ml Inj (Ns 1000 M (11/10/17 06:01) Labs Laboratory Tests Test 5/13/18 06:10 White Blood Count 18.2 TH/MM3 Red Blood Count 3.07 MIL/MM3 Hemoglobin 7.7 GM/DL Hematocrit 24.9 % Mean Corpuscular Volume 81.1 FL Mean Corpuscular Hemoglobin 25.2 PG Mean Corpuscular Hemoglobin Concent 31.0 % Red Cell Distribution Width 17.1 % Platelet Count 236 TH/MM3 Mean Platelet Volume 9.0 FL CBC Comment AUTO DIFF MDM Medical Decision Making Medical Screen Exam Complete: Yes Emergency Medical Condition: Yes Medical Record Reviewed: Yes Differential Diagnosis Sepsis, multiorgan failure, pneumonia, UTI, urinary obstruction Narrative Course Patient meets sepsis criteria upon arrival. The sepsis workup was initiated upon arrival. There is concern for urinary in etiology potentially pneumonia as well and her intra-abdominal pathology. Zosyn started. Blood cultures drawn. IV fluids initiated. Tylenol given. Case discussed with oncoming provider Dr. Hdz at 7 AM. Follow-up blood work and imaging studies with the plan to admit the patient. It should be noted that the patient's Rebolledo catheter was found inside her diaper, outside of the urinary bladder. Manpreet Woodward MD November 10, 2017 06:41
[2017-11-10 06:42] LABS: ALKALINE PHOSPHATASE 91 U/L (45-117); TOTAL BILIRUBIN ADULT 0.3 MG/DL (0.2-1.0); TOTAL PROTEIN 7.7 GM/DL (6.4-8.2)
--- NOTE | 2017-11-10 06:43 | RADRPT ---
EXAM DATE/TIME: 11/10/2017 06:17 [facility] COMPARISON: CHEST SINGLE AP, June 05, 2017, 6:04. INDICATIONS : Difficulty breathing. MEDICAL HISTORY : Left side deficit cerebrovascular accident. Hypertnesion. AFIB. Coronary artery disease. Tachycardia. Hydronephrosis. Kidney stones. Arthritis. Diabetes. Anemia. SURGICAL HISTORY : Tonsillectomy. section. Cardiac cath. Cornary stent. Hysterectomy. Left hip fracture repair . ENCOUNTER: Initial ACUITY: 1 day PAIN SCORE: Non-responsive. LOCATION: Bilateral chest FINDINGS: A single view of the chest demonstrates the lungs to be symmetrically aerated without evidence of mas s, infiltrate or effusion. The cardiomediastinal contours are unremarkable. Osseous structures are intact. CONCLUSION: No acute disease. Rosales Jay MD on November 10, 2017 at 6:41 Board Certified Radiologist. This report was verified electronically.
[2017-11-10 06:45] LABS: BACTERIA, URINE MANY /hpf; BILIRUBIN, URINE NEG (NEG); BLOOD, URINE LARGE (NEG); GLUCOSE,URINE NEG (NEG); KETONE, URINE TRACE mg/dL (NEG); NITRITE,URINE NEG (NEG); URINE COLOR LIGHT-RED (YELLW/STRAW); URINE LEUKOCYTE ESTERASE LARGE (NEG); WHITE BLOOD CELL CLUMPS MANY
[2017-11-10] MEDS ORDERED: MILKSUS PO (06:55)
[2017-11-10] MEDS ORDERED: MAALSUS17 (06:55)
[2017-11-10] MEDS ORDERED: [UNRECOGNIZED DRUG - CODE] PO (06:55)
[2017-11-10 07:59] LABS: BANDS 10 % (0-6); LYMPHOCYTES 10 % (9-44); MONOCYTES 4 % (0-8); NEUTROPHIL # MANUAL DIFF 15.7 TH/MM3 (1.8-7.7); POLYS (SEG NEUTROPHILS) 76 % (16-70)
[2017-11-10 08:00] LABS: KERATOCYTES 1+ (NORMAL)
--- NOTE | 2017-11-10 08:23 | RADRPT ---
EXAM DATE/TIME: 11/10/2017 07:44 [facility] COMPARISON: CT ABDOMEN & PELVIS W/O CONTRAST, July 16, 2017, 19:06. INDICATIONS : Abdominal distention. ORAL CONTRAST: No oral contrast ingested. RADIATION DOSE: 16.98 CTDIvol (mGy) MEDICAL HISTORY : Hypertension. Renal calculi. diabetes SURGICAL HISTORY : Hysterectomy. nephrostomy ENCOUNTER: Initial ACUITY: 1 day PAIN SCALE: Non-responsive LOCATION: Bilateral abdomen TECHNIQUE: Volumetric scanning of the abdomen and pelvis was performed. Using automated exposure control and ad justment of the mA and/or kV according to patient size, radiation dose was kept as low as reasonably achievable to obtain optimal diagnostic quality images. DICOM format image data is available electro nically for review and comparison. FINDINGS: LOWER LUNGS: There are small bilateral pleural effusions present. LIVER: Homogeneous density without lesion. There is no dilation of the biliary tree. No calcified gallston es. SPLEEN: Normal size without lesion. PANCREAS: Within normal limits. KIDNEYS: There is a right-sided nephrostomy tube present as well as a pigtail catheter involving the right kid giuseppe. Multiple coarse calcifications consistent with large renal stones and persistent moderate dilati on of the right renal collecting system. There is persistent circumferential soft tissue thickening s urrounding the proximal right ureter. The left kidney is atretic. ADRENAL GLANDS: Within normal limits. VASCULAR: There is no aortic aneurysm. There is extensive atherosclerosis present. BOWEL/MESENTERY: There is asymmetric abnormal wall thickening surrounding the colon in the region of the hepatic flexu re with the wall thickening measuring 9 mm. There is fluid surrounding this segment of bowel with flu id tracking within the right paracolic gutter and anterior to the right pararenal space. The remainde r of the large and small bowel is unremarkable. ABDOMINAL WALL: Within normal limits. RETROPERITONEUM: There is no lymphadenopathy. BLADDER: Decompressed. REPRODUCTIVE: Patient is status post prior hysterectomy. INGUINAL: There is no lymphadenopathy or hernia. MUSCULOSKELETAL: Surgical hardware identified within the bilateral femurs. Extensive osteopenia and degenerative escobar e. CONCLUSION: 1.Focal abnormal circumferential wall thickening involving the descending colon at the level of the h epatic flexure with significant adjacent fluid tracking within the right paracardiac color. Given the extensive atherosclerosis and focal finding concern is for possible infarct. Infection is also withi n the differential diagnosis. 2. Interval placement of a right-sided percutaneous nephrostomy tube. Stable appearance of the right kidney with multiple renal stones. Josefa Hair MD on November 10, 2017 at 8:09 Board Certified Radiologist. This report was verified electronically.
[2017-11-10] MEDS ORDERED: NALOXONE HCL 0.4 MG/ML AMP IV PUSH PRN (11:15)
[2017-11-10] MEDS ORDERED: SODIUM CHLORIDE 0.9% FLUSH 10 ML FLUSH IV FLUSH PRN (11:15)
[2017-11-10] MEDS ORDERED: ONDANSETRON ODT 4 MG TAB PO PRN (11:15)
--- NOTE | 2017-11-10 11:40 | HHI.HP ---
HPI Service [facility] Hospitalists Primary Care Physician Unknown Admission Diagnosis sepsis, multiorgan failure, uti Diagnoses: Chief Complaint: Altered mental status. Travel History International Travel<30 Days: No Contact w/Intl Traveler <30 Da: No Traveled to Known Affected Are: No Sepsis Criteria SIRS Criteria (2 or more): Temp > 100.9 or < 96.8, Heart rate over 90, WBC > 19662, < 4000 or > 10% bands Sepsis Criteria (SIRS+source): Infect source susp/known Severe Sepsis (+one): Acute Oliguria/Renal Failure Criteria Outcome: Meets sepsis criteria History of Present Illness This is a 59-year-old female with past medical history as stated below and history of CVA who presents to [facility]. The patient is a resident at [facility]. The patient is there due to a CVA in addition to a recent septic episode. Please note that the patient is lethargic and unable to provide any type of history. History is obtained from medical records and ED physicians documentation and verbal report. Apparently the patient was encountered this morning by personnel with gurgling respirations, tachypnea and oxygen saturation in the 50s. EMS reported Temp of 102.9, the patient was placed on a nonrebreather mask and her oxygen saturation increased to 100%. There was reported a strong odor of urine by EMS. Review of Systems Unable to obtain secondary to lethargy. Past Family Social History Past Medical History Hypertension Hyperlipidemia Diabetes CAD Atrial fibrillation on Xarelto. This was stopped on June 09, 2017 hospital admission due to hematuria CVA with left-sided hemiparesis History of carotid artery stenosis History of sepsis History of renal stones History of ESBL infection/VRE/MRSA Decubitus ulcer on heel and sacral area chronic Osteoarthritis Schizophrenia/bipolar disorder Past Surgical History Coronary angiogram with stenting in RCA and LAD Hysterectomy Tonsillectomy Left hip ORIF Urinary stent Nephrostomy tube placements Dental extractions Reported Medications Reported Meds & Active Scripts Active Percocet (Oxycodone-Acetaminophen) 5-325 mg Tab 1-2 Tab PO Q6H PRN Reported Milk of Magnesia Liq (Magnesium Hydroxide) 400 Mg/5 Ml Susp 30 Ml PO DAILY PRN Maalox Maximum Strength Susp (Mag Hydrox/Aluminum Hyd/Simeth) 400 Mg-400 Mg-40 Mg/5 Ml Oral.susp Glytrol (Nut.tx.gluc.intoler,Lac-Fr,Soy) 1,000 Ml Liquid 3 Can PO DAILY Tylenol (Acetaminophen) 325 Mg Tab 650 Mg PO Q6H PRN Hydralazine HCl 50 Mg Tablet 50 Mg PO TID Bisacodyl Supp (Bisacodyl) 10 Mg Supp 10 Mg RECTAL DAILY PRN Gabapentin 100 Mg Cap 100 Mg PO BID Glytrol (Nut.tx.gluc.intoler,Lac-Fr,Soy) 1,000 Ml Liquid 60 Ml PO TID Levemir Inj (Insulin Detemir) 1,000 unit/ 10 ML Vial 7 Units SQ HS Do not mix with any other Insulin. Thera M Plus (Multivitamins/Minerals Therapeutic) 1 Tab 1 Tab PO DAILY Sertraline (Sertraline HCl) 50 Mg Tab 50 Mg PO DAILY Senna-Tabs (Sennosides) 8.6 Mg Tab 8.6 Mg PO BID Risperidone 0.5 Mg Tab 0.5 Mg PO TID Omeprazole 20 Mg Tab 20 Mg PO DAILY Metoprolol Tartrate 25 Mg Tab 25 Mg PO BID Allergies: Coded Allergies: *MDRO Multi-Drug Resistant Organism (Verified Adverse Reaction, Unknown, ) 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 ESBL + E. 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 Family History Unable to obtain due to lethargy. Social History Unable to obtain due to lethargy. Physical Exam Vital Signs Vital Signs Date Time Temp Pulse Resp B/P (MAP) Pulse Ox O2 Delivery O2 Flow Rate FiO2 11/10/17 09:43 78 18 122/87 (99) 97 Nasal Cannula 2.00 11/10/17 07:00 92 18 145/61 (89) 95 Nasal Cannula 4.00 11/10/17 06:16 94 Nasal Cannula 3.00 11/10/17 06:02 100 Nasal Cannula 2.00 11/10/17 05:56 101.4 107 16 147/73 (97) Physical Exam GENERAL: This is a well-nourished, well-developed patient, lethargic. SKIN: No rashes, ecchymoses or lesions. Cool and dry. HEAD: Atraumatic. Normocephalic. No temporal or scalp tenderness. EYES: Pupils equal round and reactive. Extraocular motions intact. No scleral icterus. No injection or drainage. ENT: Nose without bleeding, purulent drainage or septal hematoma. Throat without erythema, tonsillar hypertrophy or exudate. Uvula midline. Airway patent. NECK: Trachea midline. No JVD or lymphadenopathy. Supple, nontender, no meningeal signs. CARDIOVASCULAR: Regular rate and rhythm without murmurs, gallops, or rubs. RESPIRATORY: Clear to auscultation. Breath sounds equal bilaterally. No wheezes , rales, + coarse rhochi BL. GASTROINTESTINAL: Abdomen soft, tender to palpation, distended. No hepato- splenomegaly, or palpable masses. No guarding. MUSCULOSKELETAL: Extremities without clubbing, cyanosis, or edema. No joint tenderness, effusion, or edema noted. No calf tenderness. Negative Homans sign bilaterally. NEUROLOGICAL:Lethargic, moans when painful stimuli inflicted. Unavble to asses rest of mental status. Laboratory Laboratory Tests Test 11/10/17 06:10 11/10/17 06:20 White Blood Count 18.2 Red Blood Count 3.07 Hemoglobin 7.7 Hematocrit 24.9 Mean Corpuscular Volume 81.1 Mean Corpuscular Hemoglobin 25.2 Mean Corpuscular Hemoglobin Concent 31.0 Red Cell Distribution Width 17.1 Platelet Count 236 Mean Platelet Volume 9.0 CBC Comment AUTO DIFF Differential Total Cells Counted 100 Neutrophils % (Manual) 76 Band Neutrophils % 10 Lymphocytes % 10 Monocytes % 4 Neutrophils # (Manual) 15.7 Differential Comment FINAL DIFF MANUAL Platelet Estimate NORMAL Platelet Morphology Comment NORMAL Keratocytes 1+ Blood Urea Nitrogen 61 Creatinine 3.97 Random Glucose 165 Total Protein 7.7 Albumin 2.6 Calcium Level 9.0 Alkaline Phosphatase 91 Aspartate Amino Transf (AST/SGOT) 13 Alanine Aminotransferase (ALT/SGPT) 14 Total Bilirubin 0.3 Sodium Level 144 Potassium Level 4.1 Chloride Level 110 Carbon Dioxide Level 23.9 Anion Gap 10 Estimat Glomerular Filtration Rate 11 Lactic Acid Level 0.9 Urine Color LIGHT-RED Urine Turbidity CLOUDY Urine pH 6.0 Urine Specific Dyke 1.025 Urine Protein 300 Urine Glucose (UA) NEG Urine Ketones TRACE Urine Occult Blood LARGE Urine Nitrite NEG Urine Bilirubin NEG Urine Urobilinogen LESS THAN 2.0 Urine Leukocyte Esterase LARGE Urine RBC Urine WBC Urine WBC Clumps MANY Urine Bacteria MANY Microscopic Urinalysis Comment CATH-CULTURE IND Date/Time Source Procedure Growth Status 11/10/17 06:15 Blood Peripheral Aerobic Blood Culture Pending Received 11/10/17 06:15 Blood Peripheral Anaerobic Blood Culture Pending Received 11/10/17 06:20 Urine Catheterized Urine Urine Culture Pending Received Result Diagram: 11/10/1760911/10/17609 Imaging Last Impressions Chest X-Ray 11/10/17600 Signed Impressions: Service Date/Time: Friday, November 10, 2017 06:17 - CONCLUSION: No acute disease. Rosales Jay MD Abdomen/Pelvis CT 11/10/17600 Signed Impressions: Service Date/Time: Friday, November 10, 2017 07:44 - CONCLUSION: 1.Focal abnormal circumferential wall thickening involving the descending colon at the level of the hepatic flexure with significant adjacent fluid tracking within the right paracardiac color. Given the extensive atherosclerosis and focal finding concern is for possible infarct. Infection is also within the differential diagnosis. 2. Interval placement of a right-sided percutaneous nephrostomy tube. Stable appearance of the right kidney with multiple renal stones. Josefa Hair MD Reviewed by me Edmonds VTE Risk Assessment Caprini VTE Risk Assessment: Mod/High Risk (score >= 2) Caprini Risk Assessment Model Point Value = 1 Point Value = 2 Point Value = 3 Point Value = 5 Age 41-60 Minor surgery BMI > 25 kg/m2 Swollen legs Varicose veins or History of unexplained or recurrent spontaneous Oral contraceptives or hormone replacement Sepsis (< 1 month) Serious lung disease, including pneumonia (< 1 month) Abnormal pulmonary function Acute myocardial infarction Congestive heart failure (< 1 month) History of inflammatory bowel disease Medical patient at bed rest Age 61-74 Arthroscopic surgery Major open surgery (> 45 min) Laparoscopic surgery (> 45 min) Malignancy Confined to bed (> 72 hours) Immobilizing plaster cast Central venous access Age >= 75 History of VTE Family history of VTE Factor V Leiden Prothrombin [id number] Lupus anticoagulant Anticardiolipin antibodies Elevated serum homocysteine Heparin-induced thrombocytopenia Other congenital or acquired thrombophilia Stroke (< 1 month) Elective arthroplasty Hip, pelvis, or leg fracture Acute spinal cord injury (< 1 month) Prophylaxis Regimen Total Risk Factor Score Risk Level Prophylaxis Regimen 0-1 Low Early ambulation 2 Moderate Order ONE of the following: *Sequential Compression Device (SCD) *Heparin 5000 units SQ BID 3-4 Higher Order ONE of the following medications: *Heparin 5000 units SQ TID *Enoxaparin/Lovenox 40 mg SQ daily (WT < 150 kg, CrCl > 30 mL/min) *Enoxaparin/Lovenox 30 mg SQ daily (WT < 150 kg, CrCl > 10-29 mL/min) *Enoxaparin/Lovenox 30 mg SQ BID (WT < 150 kg, CrCl > 30 mL/min) AND/OR *Sequential Compression Device (SCD) 5 or more Highest Order ONE of the following medications: *Heparin 5000 units SQ TID (Preferred with Epidurals) *Enoxaparin/Lovenox 40 mg SQ daily (WT < 150 kg, CrCl > 30 mL/min) *Enoxaparin/Lovenox 30 mg SQ daily (WT < 150 kg, CrCl > 10-29 mL/min) *Enoxaparin/Lovenox 30 mg SQ BID (WT < 150 kg, CrCl > 30 mL/min) AND *Sequential Compression Device (SCD) Assessment and Plan Problem List: (1) UTI (urinary tract infection) ICD Code: N39.0 - Urinary tract infection, site not specified (2) Encephalopathy acute ICD Code: G93.40 - Encephalopathy, unspecified (3) Leukocytosis ICD Code: D72.829 - Elevated white blood cell count, unspecified (4) Abnormal CT scan ICD Code: R93.8 - Abnormal findings on diagnostic imaging of other specified body structures (5) SIMBA (acute kidney injury) ICD Code: N17.9 - Acute kidney failure, unspecified (6) Diabetes ICD Code: E11.9 - Type 2 diabetes mellitus without complications (7) Severe sepsis ICD Code: A41.9 - Sepsis, unspecified organism; R65.20 - Severe sepsis without septic shock Assessment and Plan Sepsis present on admission with leukocytosis, tachycardia and fever. Sepsis likely secondary to UTI and suspected abscess versus intestinal ischemia. UA positive, CT of the abdomen reviewed by me showed a focal abnormal circumferential wall thickening involving the descending colon at the level of the hepatic flexure with significant adjacent fluid tracking within the right. Focal findings concerning for possible infarct versus infection. Admit the patient is a significant care unit given the degree of lethargy. Encephalopathy likely metabolic. Placed on IV normal saline, the patient was given IV Zosyn in the ER which will be continued. Monitor vital signs Consult general surgery. Keep n.p.o. Zofran as needed for nausea vomiting. Objective Tylenol as needed for fever. I will stat head CT without contrast to assess for any acute ischemic process especially since patient has a history of CVA. Follow-up blood and urine cultures. SCDs for DVT prophylaxis, once acute process without by CT scan of the head and will start on heparin subcutaneously. We will place on SSI with insulin NovoLog and hold outpatient insulin for now. Monitor Accu-Cheks. Patient has a SIMBA on CKD stage III. Baseline creatinine around 1.6-1.7. Likely prerenal azotemia versus ATN given current sepsis syndrome. Place Rebolledo catheter and continue IV fluids. Monitor BUN/creatinine, we nephrotoxins and strict I's and O's. Code Status Full code Discussed Condition With ED physician, RN. Physician Certification 2 Midnight Certification Type: Admission for Inpatient Services Order for Inpatient Services The services are ordered in accordance with Medicare regulations or non- Medicare payer requirements, as applicable. In the case of services not specified as inpatient-only, they are appropriately provided as inpatient services in accordance with the 2-midnight benchmark. Estimated LOS (days): 3 days is the estimated time the patient will need to remain in the hospital, assuming treatment plan goals are met and no additional complications. 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
[2017-11-10] MEDS ORDERED: ACETAMINOPHEN 325 MG TAB PO PRN (11:45)
[2017-11-10] MEDS ORDERED: SODIUM CHLOR 0.9% 250 ML INJ 250 ML IV ONE (11:45)
[2017-11-10] MEDS ORDERED: diphenhydrAMINE HCL 25 MG CAP PO PRN (11:45)
--- NOTE | 2017-11-10 12:08 | RADRPT ---
EXAM DATE/TIME: 11/10/2017 11:22 [place] COMPARISON: CT BRAIN W/O CONTRAST, June 05, 2017, 6:42. INDICATIONS : Altered mental status. RADIATION DOSE: 56.35 CTDIvol (mGy) ; Patient motion MEDICAL HISTORY : Cerebrovascular disease. AFIB SURGICAL HISTORY : Hysterectomy. ENCOUNTER: Initial ACUITY: 1 day PAIN SCALE: 0/10 LOCATION: cranial TECHNIQUE: Multiple contiguous axial images were obtained of the head. Using automated exposure control and adj ustment of the mA and/or kV according to patient size, radiation dose was kept as low as reasonably a chievable to obtain optimal diagnostic quality images. DICOM format image data is available electro nically for review and comparison. FINDINGS: CEREBRUM: Stable area of extensive encephalomalacia involving the right middle cerebral artery territories with in the parietal and occipital lobe. Stable dystrophic calcifications. Extraocular dilation of the keith tricles secondary to old infarct and diffuse atrophic white matter changes. No new abnormality. POSTERIOR FOSSA: The cerebellum and brainstem are intact. The 4th ventricle is midline. The cerebellopontine angle i s unremarkable. EXTRACRANIAL: The visualized portion of the orbits is intact. SKULL: The calvaria is intact. No evidence of skull fracture. CONCLUSION: Stable exam. No acute abnormality.. Josefa Hair MD on November 10, 2017 at 12:03 Board Certified Radiologist. This report was verified electronically.
[2017-11-10] MEDS: SODIUM CHLOR 0.45% 1000 ML INJ 1,000 ML IV SCH (12:43)
--- NOTE | 2017-11-10 12:45 | PD.CONS ---
HPI Service General Surgery Consult Requested By Dr. Jackson Reason for Consult colitis Primary Care Physician Nii Stone M.D. History of Present Illness 62 yo F presents from [facility] due to altered mental status and fever. It looks like she had a nephrostomy tube on the right side replaced 3 days ago. She was reported to have had a fever of 102 at the facility and 101.4 here in the emergency department. She has leukocytosis of 18,000 with 10 % bands. UA is consistent with urinary tract infection. CT the abdomen and pelvis shows inflammation and thickening of the colon mainly at the hepatic flexure, and extensive atherosclerotic disease. There is concern for ischemic colon. The patient can give no history. I placed a call to the patient's son but cannot get an answer. My history is from the EMR and from transfer paperwork. Review of Systems ROS Limitations: Clinical Condition, Altered Mental Status Constitutional: COMPLAINS OF: Fever Other Unable to obtain any clinical information from the patient Past Family Social History Past Medical History Hypertension Hyperlipidemia Diabetes CAD Atrial fibrillation on Xarelto. This was stopped on June 09, 2017 hospital admission due to hematuria CVA with left-sided hemiparesis History of carotid artery stenosis History of sepsis History of renal stones History of ESBL infection/VRE/MRSA Decubitus ulcer on heel and sacral area chronic Osteoarthritis Schizophrenia/bipolar disorder Past Surgical History Coronary angiogram with stenting in RCA and LAD Hysterectomy Tonsillectomy Left hip ORIF Urinary stent Nephrostomy tube placements Dental extractions Reported Medications Reported Meds & Active Scripts Active Percocet (Oxycodone-Acetaminophen) 5-325 mg Tab 1-2 Tab PO Q6H PRN Reported Milk of Magnesia Liq (Magnesium Hydroxide) 400 Mg/5 Ml Susp 30 Ml PO DAILY PRN Maalox Maximum Strength Susp (Mag Hydrox/Aluminum Hyd/Simeth) 400 Mg-400 Mg-40 Mg/5 Ml Oral.susp Glytrol (Nut.tx.gluc.intoler,Lac-Fr,Soy) 1,000 Ml Liquid 3 Can PO DAILY Tylenol (Acetaminophen) 325 Mg Tab 650 Mg PO Q6H PRN Hydralazine HCl 50 Mg Tablet 50 Mg PO TID Bisacodyl Supp (Bisacodyl) 10 Mg Supp 10 Mg RECTAL DAILY PRN Gabapentin 100 Mg Cap 100 Mg PO BID Glytrol (Nut.tx.gluc.intoler,Lac-Fr,Soy) 1,000 Ml Liquid 60 Ml PO TID Levemir Inj (Insulin Detemir) 1,000 unit/ 10 ML Vial 7 Units SQ HS Do not mix with any other Insulin. Thera M Plus (Multivitamins/Minerals Therapeutic) 1 Tab 1 Tab PO DAILY Sertraline (Sertraline HCl) 50 Mg Tab 50 Mg PO DAILY Senna-Tabs (Sennosides) 8.6 Mg Tab 8.6 Mg PO BID Risperidone 0.5 Mg Tab 0.5 Mg PO TID Omeprazole 20 Mg Tab 20 Mg PO DAILY Metoprolol Tartrate 25 Mg Tab 25 Mg PO BID Allergies: Coded Allergies: *MDRO Multi-Drug Resistant Organism (Verified Adverse Reaction, Unknown, ) 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 ESBL + E. 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 Ordered Medications Current Medications Medications (Trade) Dose Ordered Sig/Sukhi Route Start Time Stop Time Status Last Admin Sodium Chloride 1,000 ml @ 75 mls/hr [id number] IV 11/10/17 11:13 (NS Flush) 2 ml UNSCH PRN IV FLUSH 11/10/17 11:15 (NS Flush) 2 ml BID IV FLUSH 11/10/17 21:00 (Zofran Odt) 4 mg Q6H PRN PO 11/10/17 11:15 (Narcan Inj) 0.4 mg UNSCH PRN IV PUSH 11/10/17 11:15 Piperacillin Sod/ Tazobactam Sod 50 ml @ 100 mls/hr Q8H IV 11/10/17 14:00 Sodium Chloride 250 ml @ 15 mls/hr ONCE ONCE IV 11/10/17 11:45 11/11/17 04:24 (Tylenol) 650 mg Q4H PRN PO 11/10/17 11:45 (Benadryl) 25 mg Q4H PRN PO 11/10/17 11:45 Family History Noncontributory Social History Lives at [facility] currently. Do not know status of tobacco and alcohol use. Physical Exam Vital Signs Vital Signs Date Time Temp Pulse Resp B/P (MAP) Pulse Ox O2 Delivery O2 Flow Rate FiO2 11/10/17 09:43 78 18 122/87 (99) 97 Nasal Cannula 2.00 11/10/17 07:00 92 18 145/61 (89) 95 Nasal Cannula 4.00 11/10/17 06:16 94 Nasal Cannula 3.00 11/10/17 06:02 100 Nasal Cannula 2.00 11/10/17 05:56 101.4 107 16 147/73 (97) Physical Exam GENERAL: Altered. Difficult to arouse. Obese. HEAD: Normocephalic. Atraumatic. EYES: Pupils left side round and reactive. Right side cloudy. Pale conjunctivae. NECK: Trachea midline. CHEST: Nonlabored. No respiratory distress. CARDIOVASCULAR: Regular rate and rhythm. ABDOMEN: Lower midline scar. Distended. Soft, no guarding. Groans significantly with bilateral upper abdominal palpation. SKIN: Pale. Laboratory Laboratory Tests Test 11/10/17 06:10 11/10/17 06:20 White Blood Count 18.2 Red Blood Count 3.07 Hemoglobin 7.7 Hematocrit 24.9 Mean Corpuscular Volume 81.1 Mean Corpuscular Hemoglobin 25.2 Mean Corpuscular Hemoglobin Concent 31.0 Red Cell Distribution Width 17.1 Platelet Count 236 Mean Platelet Volume 9.0 CBC Comment AUTO DIFF Differential Total Cells Counted 100 Neutrophils % (Manual) 76 Band Neutrophils % 10 Lymphocytes % 10 Monocytes % 4 Neutrophils # (Manual) 15.7 Differential Comment FINAL DIFF MANUAL Platelet Estimate NORMAL Platelet Morphology Comment NORMAL Keratocytes 1+ Blood Urea Nitrogen 61 Creatinine 3.97 Random Glucose 165 Total Protein 7.7 Albumin 2.6 Calcium Level 9.0 Alkaline Phosphatase 91 Aspartate Amino Transf (AST/SGOT) 13 Alanine Aminotransferase (ALT/SGPT) 14 Total Bilirubin 0.3 Sodium Level 144 Potassium Level 4.1 Chloride Level 110 Carbon Dioxide Level 23.9 Anion Gap 10 Estimat Glomerular Filtration Rate 11 Lactic Acid Level 0.9 Urine Color LIGHT-RED Urine Turbidity CLOUDY Urine pH 6.0 Urine Specific [place] 1.025 Urine Protein 300 Urine Glucose (UA) NEG Urine Ketones TRACE Urine Occult Blood LARGE Urine Nitrite NEG Urine Bilirubin NEG Urine Urobilinogen LESS THAN 2.0 Urine Leukocyte Esterase LARGE Urine RBC Urine WBC Urine WBC Clumps MANY Urine Bacteria MANY Microscopic Urinalysis Comment CATH-CULTURE IND Date/Time Source Procedure Growth Status 11/10/17 06:15 Blood Peripheral Aerobic Blood Culture Pending Received 11/10/17 06:15 Blood Peripheral Anaerobic Blood Culture Pending Received 11/10/17 06:20 Urine Catheterized Urine Urine Culture Pending Received Result Diagram: 11/10/17 0610 11/10/1710 Imaging Last Impressions Chest X-Ray 11/10/17600 Signed Impressions: Service Date/Time: Friday, November 10, 2017 06:17 - CONCLUSION: No acute disease. Rosales Jay MD Abdomen/Pelvis CT 11/10/17600 Signed Impressions: Service Date/Time: Friday, November 10, 2017 07:44 - CONCLUSION: 1.Focal abnormal circumferential wall thickening involving the descending colon at the level of the hepatic flexure with significant adjacent fluid tracking within the right paracardiac color. Given the extensive atherosclerosis and focal finding concern is for possible infarct. Infection is also within the differential diagnosis. 2. Interval placement of a right-sided percutaneous nephrostomy tube. Stable appearance of the right kidney with multiple renal stones. Josefa Hair MD Head CT 11/10/17 0000 Signed Impressions: Service Date/Time: Friday, November 10, 2017 11:22 - CONCLUSION: Stable exam. No acute abnormality.. Josefa Hair MD Assessment and Plan Assessment and Plan 62-year-old female history of CVA with right-sided nephrostomy tube who has an urinary tract infection and colitis most notable at the hepatic flexure. Unclear the etiology of the colitis. Could be infectious versus ischemic especially with the vascular calcifications and her urinary tract infection which may have created a low flow state. We will check for C. difficile. She is on Zosyn and add Flagyl. Await C. difficile testing. I discussed the case with Dr. Jackson. Also discussed with Dr. Bonilla and will consult him for consideration of colonoscopy if he feels this will be beneficial. I will plan to reevaluate in the morning or after colonoscopy. If worsening she may require operative intervention for at least evaluation of the colon and possible treatment. Luke Guerrero MD November 10, 2017 12:45
--- NOTE | 2017-11-10 14:08 | PD.CONS ---
HPI History of Present Illness This is a 62 year old F with significant PMH who is a resident at [facility] S/P CVA and septic episode. Pt was transferred to ER due to reports of decreased O2 saturation with abnormal respirations. In ER pt was found to be febrile with leukocytosis. CT abdomen and pelvis W/O IV contrast was done which reveals focal abnormal circumferential wall thickening involving the descending colon at the level of the hepatic flexure with significant adjacent fluid tracking within the right paracardiac color. Given the extensive arthrosclerosis and focal finding concern is for possible infarct, infection is also within differential diagnosis. Pt with known a-fib and was previously on Xarelto, this was discontinued in May for hematuria. Surgery has evaluated pt and ordered a C. diff stool test and started pt on IV Flagyl. (Teresa Martinez) PFSH Past Medical History Hypertension Hyperlipidemia Diabetes CAD Atrial fibrillation on Xarelto. This was stopped on June 09, 2017 hospital admission due to hematuria CVA with left-sided hemiparesis History of carotid artery stenosis History of sepsis History of renal stones History of ESBL infection/VRE/MRSA Decubitus ulcer on heel and sacral area chronic Osteoarthritis Schizophrenia/bipolar disorder Past Surgical History Coronary angiogram with stenting in RCA and LAD Hysterectomy Tonsillectomy Left hip ORIF Urinary stent Nephrostomy tube placements Dental extractions (Teresa Martinez) Coded Allergies: *MDRO Multi-Drug Resistant Organism (Verified Adverse Reaction, Unknown, ) 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 ESBL + E. 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 Family History Unable to obtain due to lethargy. Social History Unable to obtain due to lethargy. (Teresa Martinez) Review of Systems Unable to obtain (Teresa Martinez) GI Exam Vitals I&O Vital Signs Date Time Temp Pulse Resp B/P (MAP) Pulse Ox O2 Delivery O2 Flow Rate FiO2 11/10/17 12:39 99.9 66 18 133/68 (89) 99 Nasal Cannula 3.00 11/10/17 09:43 78 18 122/87 (99) 97 Nasal Cannula 2.00 11/10/17 07:00 92 18 145/61 (89) 95 Nasal Cannula 4.00 11/10/17 06:16 94 Nasal Cannula 3.00 11/10/17 06:02 100 Nasal Cannula 2.00 11/10/17 05:56 101.4 107 16 147/73 (97) I/O 11/09/17 11/09/17 11/09/17 11/10/17 11/10/17 11/10/17 07:00 15:00 23:00 07:00 15:00 23:00 Output Total 320 ml Balance -320 ml Output Urine Total 300 ml Drainage Total 20 ml # Voids 0 Imaging Last Impressions Chest X-Ray 11/10/17600 Signed Impressions: Service Date/Time: Friday, November 10, 2017 06:17 - CONCLUSION: No acute disease. Rosales Jay MD Abdomen/Pelvis CT 11/10/17600 Signed Impressions: Service Date/Time: Friday, November 10, 2017 07:44 - CONCLUSION: 1.Focal abnormal circumferential wall thickening involving the descending colon at the level of the hepatic flexure with significant adjacent fluid tracking within the right paracardiac color. Given the extensive atherosclerosis and focal finding concern is for possible infarct. Infection is also within the differential diagnosis. 2. Interval placement of a right-sided percutaneous nephrostomy tube. Stable appearance of the right kidney with multiple renal stones. Josefa Hair MD Head CT 11/10/17 0000 Signed Impressions: Service Date/Time: Friday, November 10, 2017 11:22 - CONCLUSION: Stable exam. No acute abnormality.. Josefa Hair MD Laboratory Test 11/10/17 06:10 11/10/17 06:20 White Blood Count 18.2 TH/MM3 Red Blood Count 3.07 MIL/MM3 Hemoglobin 7.7 GM/DL Hematocrit 24.9 % Mean Corpuscular Volume 81.1 FL Mean Corpuscular Hemoglobin 25.2 PG Mean Corpuscular Hemoglobin Concent 31.0 % Red Cell Distribution Width 17.1 % Platelet Count 236 TH/MM3 Mean Platelet Volume 9.0 FL CBC Comment AUTO DIFF Differential Total Cells Counted 100 Neutrophils % (Manual) 76 % Band Neutrophils % 10 % Lymphocytes % 10 % Monocytes % 4 % Neutrophils # (Manual) 15.7 TH/MM3 Differential Comment FINAL DIFF MANUAL Platelet Estimate NORMAL Platelet Morphology Comment NORMAL Keratocytes 1+ Blood Urea Nitrogen 61 MG/DL Creatinine 3.97 MG/DL Random Glucose 165 MG/DL Total Protein 7.7 GM/DL Albumin 2.6 GM/DL Calcium Level 9.0 MG/DL Alkaline Phosphatase 91 U/L Aspartate Amino Transf (AST/SGOT) 13 U/L Alanine Aminotransferase (ALT/SGPT) 14 U/L Total Bilirubin 0.3 MG/DL Sodium Level 144 MEQ/L Potassium Level 4.1 MEQ/L Chloride Level 110 MEQ/L Carbon Dioxide Level 23.9 MEQ/L Anion Gap 10 MEQ/L Estimat Glomerular Filtration Rate 11 ML/MIN Lactic Acid Level 0.9 mmol/L Urine Color LIGHT-RED Urine Turbidity CLOUDY Urine pH 6.0 Urine Specific [place] 1.025 Urine Protein 300 mg/dL Urine Glucose (UA) NEG mg/dL Urine Ketones TRACE mg/dL Urine Occult Blood LARGE Urine Nitrite NEG Urine Bilirubin NEG Urine Urobilinogen LESS THAN 2.0 MG/DL Urine Leukocyte Esterase LARGE Urine RBC /hpf Urine WBC /hpf Urine WBC Clumps MANY Urine Bacteria MANY /hpf Microscopic Urinalysis Comment CATH-CULTURE IND Date/Time Source Procedure Growth Status 11/10/17 06:15 Blood Peripheral Aerobic Blood Culture Pending Received 11/10/17 06:15 Blood Peripheral Anaerobic Blood Culture Pending Received 11/10/17 06:20 Urine Catheterized Urine Urine Culture Pending Received Physical Examination HEENT: Normocephalic; atraumatic CHEST: Even/unlabored- 3 L O2 via NC ABDOMEN: Distended, soft, bowel sounds active EXTREMITIES: No clubbing, cyanosis, or edema. SKIN: Pale (Bonnette,Teresa SENIOR RESEARCH PROJECT MANAGER) Assessment and Plan Plan Assessment: - Colitis- infectious vs ischemic- unable to obtain history from patient CT abdomen and pelvis W/O IV contrast (11/10) --> Focal abnormal circumferential wall thickening involving the descending colon at the level of the hepatic flexure with significant adjacent fluid tracking within the right paracardiac color. Given the extensive atherosclerosis and focal finding concern is for possible infarct. Infection is also within the differential diagnosis. Interval placement of a right-sided percutaneous nephrostomy tube. Stable appearance of the right kidney with multiple renal stones. Febrile with leukocytosis C diff stool ordered by GS, pt started on IV Flagyl and Zosyn - Anemia, microcytic, hypochromic- hgb 10 in July Plan: Colonoscopy tomorrow Obtain consent NPO after MN Place NG tube for bowel prep Half-lytely prep through NG C diff pending Flagyl and Zosyn Further recommendations based on findings of above and clinical course Pt has been seen and examined by myself and Dr. Bonilla and this note is written on his behalf (Teresa Martinez) Physician Comments Seen and examined with SENIOR RESEARCH PROJECT MANAGER, colonoscopy planned for tomorrow if can tolerate prep. NG for bowel prep. Stool studies, discussed with Dr. Guerrero. Dr. Donahue will follow. Thank you (Anny Bonilla MD) Teresa Martinez November 10, 2017 14:08 Anny Bonilla MD November 10, 2017 21:00
[2017-11-10] MEDS: metroNIDAZOLE 500 MG INJ 100 ML IV SCH ×2 (14:44→18:11)
[2017-11-10] MEDS ORDERED: PEG (High)/E-LYTE SOLN 4000 ML BTL NG ONE (15:00)
[2017-11-10] MEDS: PIPERACIL-TAZO 2.25 GM PREMIX 50 ML IV SCH ×2 (17:00→21:50)
[2017-11-10] MEDS: SODIUM CHLORIDE 0.9% FLUSH 10 ML FLUSH IV FLUSH SCH (21:49)
[2017-11-11] VITALS (9 sets, daily range): BP systolic 133–176; BP diastolic 64–87; PULSE 62–83; RESP 18–22; TEMP 98–99.9; O2SAT 92–97
[2017-11-11] MEDS: SODIUM CHLOR 0.45% 1000 ML INJ 1,000 ML IV SCH ×2 (00:12→13:14)
[2017-11-11] MEDS: metroNIDAZOLE 500 MG INJ 100 ML IV SCH ×4 (00:15→18:08)
[2017-11-11] MEDS: PIPERACIL-TAZO 2.25 GM PREMIX 50 ML IV SCH ×3 (05:03→23:08)
[2017-11-11 06:59] LABS: AUTOMATED NEUTROPHIL # 11.9 TH/MM3 (1.8-7.7); BASOPHIL # 0.1 TH/MM3 (0-0.2); BASOPHIL % 0.5 % (0.0-2.0); EOSINOPHIL # 0.3 TH/MM3 (0-0.4); EOSINOPHIL % 2.4 % (0.0-4.0); HEMATOCRIT 25.6 % (35.0-46.0); HEMOGLOBIN 8.4 GM/DL (11.6-15.3); LYMPH % 10.7 % (9.0-44.0); LYMPHOCYTE # 1.6 TH/MM3 (1.0-4.8); MEAN CELL VOLUME 80.9 FL (80.0-100.0); MEAN CORPUSCULAR HEMOGLOBIN 26.4 PG (27.0-34.0); MEAN CORPUSCULAR HGB CONC 32.7 % (32.0-36.0); MEAN PLATELET VOLUME 8.8 FL (7.0-11.0); MONO % 4.6 % (0.0-8.0); MONOCYTE # 0.7 TH/MM3 (0-0.9); NEUT % 81.8 % (16.0-70.0); PLATELET COUNT 227 TH/MM3 (150-450); RED BLOOD COUNT 3.17 MIL/MM3 (4.00-5.30); RED CELL DISTRIBUTION WIDTH 16.6 % (11.6-17.2); WHITE BLOOD COUNT 14.6 TH/MM3 (4.0-11.0)
[2017-11-11 07:25] LABS: ALBUMIN 2.2 GM/DL (3.4-5.0); AST (GOT) 11 U/L (15-37); BICARBONATE 24.2 MEQ/L (21.0-32.0); BLOOD UREA NITROGEN 56 MG/DL (7-18); CALCIUM 8.5 MG/DL (8.5-10.1); CHLORIDE 116 MEQ/L (98-107); CREATININE 3.05 MG/DL (0.50-1.00); GLOMERULAR FILTRATION RATE 15 ML/MIN (>89); GLUCOSE,RANDOM 108 MG/DL (74-106); SODIUM (NA) 149 MEQ/L (136-145)
[2017-11-11 07:26] LABS: ALT (GPT) 11 U/L (10-53)
[2017-11-11 07:29] LABS: ALKALINE PHOSPHATASE 75 U/L (45-117); TOTAL BILIRUBIN ADULT 0.5 MG/DL (0.2-1.0); TOTAL PROTEIN 6.9 GM/DL (6.4-8.2)
--- NOTE | 2017-11-11 07:56 | HHI.PR ---
Subjective Subjective Notes She looks better. Awake and alert, watching tv. She is able to respond to some questioning. She does say yes when asked if her abdomen hurts. It looks like she has not had much of the bowel prep. Objective Vitals/I&O Vital Signs Date Time Temp Pulse Resp B/P (MAP) Pulse Ox O2 Delivery O2 Flow Rate FiO2 11/11/17 04:20 99.1 74 22 159/74 (102) 93 11/10/17 19:45 Nasal Cannula 3.00 Labs Laboratory Tests Test 11/11/17 06:20 White Blood Count 14.6 Red Blood Count 3.17 Hemoglobin 8.4 Hematocrit 25.6 Mean Corpuscular Volume 80.9 Mean Corpuscular Hemoglobin 26.4 Mean Corpuscular Hemoglobin Concent 32.7 Red Cell Distribution Width 16.6 Platelet Count 227 Mean Platelet Volume 8.8 Neutrophils (%) (Auto) 81.8 Lymphocytes (%) (Auto) 10.7 Monocytes (%) (Auto) 4.6 Eosinophils (%) (Auto) 2.4 Basophils (%) (Auto) 0.5 Neutrophils # (Auto) 11.9 Lymphocytes # (Auto) 1.6 Monocytes # (Auto) 0.7 Eosinophils # (Auto) 0.3 Basophils # (Auto) 0.1 CBC Comment DIFF FINAL Differential Comment Blood Urea Nitrogen 56 Creatinine 3.05 Random Glucose 108 Total Protein 6.9 Albumin 2.2 Calcium Level 8.5 Alkaline Phosphatase 75 Aspartate Amino Transf (AST/SGOT) 11 Alanine Aminotransferase (ALT/SGPT) 11 Total Bilirubin 0.5 Sodium Level 149 Potassium Level 3.4 Chloride Level 116 Carbon Dioxide Level 24.2 Anion Gap 9 Estimat Glomerular Filtration Rate 15 Date/Time Source Procedure Growth Status 11/10/17 06:15 Blood Peripheral Aerobic Blood Culture Pending Received 11/10/17 06:15 Blood Peripheral Anaerobic Blood Culture Pending Received 11/10/17 06:20 Urine Catheterized Urine Urine Culture Pending Received Radiology Last Impressions Chest X-Ray 11/10/17 0601 Signed Impressions: Service Date/Time: Friday, November 10, 2017 06:17 - CONCLUSION: No acute disease. Rosales Jay MD Abdomen/Pelvis CT 11/10/17 0601 Signed Impressions: Service Date/Time: Friday, November 10, 2017 07:44 - CONCLUSION: 1.Focal abnormal circumferential wall thickening involving the descending colon at the level of the hepatic flexure with significant adjacent fluid tracking within the right paracardiac color. Given the extensive atherosclerosis and focal finding concern is for possible infarct. Infection is also within the differential diagnosis. 2. Interval placement of a right-sided percutaneous nephrostomy tube. Stable appearance of the right kidney with multiple renal stones. Josefa Hair MD Head CT 11/10/17 0000 Signed Impressions: Service Date/Time: Friday, November 10, 2017 11:22 - CONCLUSION: Stable exam. No acute abnormality.. Josefa Hair MD Narrative Exam Awake. Much more alert than last night. CV: RRR Abd: distended. left side nontender. RLQ mild ttp, RUQ severe ttp. A/P Assessment and Plan 62 yo F with h/o CVA, with UTI and colitis at hepatic flexure. Infectious vs ischemic colitis. C dif has not been sent. Planned for colonoscopy although it doesn't look like she has had prep. WBC improved, mental status improved, persistent abdominal tenderness. Await colonoscopy results, c dif testing, continue IV zosyn and flagyl. D/w patient's bedside nurse Jack and charge nurse. CesarLuke MD November 11, 2017 07:56
[2017-11-11] MEDS: SODIUM CHLORIDE 0.9% FLUSH 10 ML FLUSH IV FLUSH SCH ×2 (08:47→23:08)
--- NOTE | 2017-11-11 11:07 | HHI.GIFU ---
Subjective Remarks Pt was to have colonoscopy today but she pulled out NGT before getting much of her prep. Nurse has not been able to reach her son for consents. She denies abd pain. + BM yesterday. (Mayra Avery) Objective Vitals I&O Vital Signs Date Time Temp Pulse Resp B/P (MAP) Pulse Ox O2 Delivery O2 Flow Rate FiO2 11/11/17 08:00 98.2 74 18 147/72 (97) 93 11/11/17 08:00 71 11/11/17 04:20 99.1 74 22 159/74 (102) 93 11/11/17 00:20 98.9 62 20 133/64 (87) 96 11/11/17 00:00 62 11/10/17 21:56 98.8 69 16 136/69 96 11/10/17 21:56 98.8 69 16 136/69 (91) 96 11/10/17 20:00 57 11/10/17 19:45 99 Nasal Cannula 3.00 11/10/17 18:56 98.2 63 18 122/58 99 11/10/17 18:17 98.1 74 18 134/63 95 11/10/17 15:30 98.0 67 16 95/56 (69) 98 11/10/17 12:39 99.9 66 18 133/68 (89) 99 Nasal Cannula 3.00 I/O 11/10/17 11/10/17 11/10/17 11/11/17 11/11/17 11/11/17 06:59 14:59 22:59 06:59 14:59 22:59 Intake Total 600 ml 150 ml Output Total 320 ml 300 ml 950 ml Balance -320 ml 300 ml -800 ml Intake IV Total 50 ml 150 ml Packed Cells 400 ml Blood Product IV Normal Saline Flush 150 ml Output Urine Total 300 ml 300 ml 725 ml Drainage Total 20 ml 225 ml # Voids 0 Laboratory Laboratory Tests Test 11/11/17 06:20 White Blood Count 14.6 Red Blood Count 3.17 Hemoglobin 8.4 Hematocrit 25.6 Mean Corpuscular Volume 80.9 Mean Corpuscular Hemoglobin 26.4 Mean Corpuscular Hemoglobin Concent 32.7 Red Cell Distribution Width 16.6 Platelet Count 227 Mean Platelet Volume 8.8 Neutrophils (%) (Auto) 81.8 Lymphocytes (%) (Auto) 10.7 Monocytes (%) (Auto) 4.6 Eosinophils (%) (Auto) 2.4 Basophils (%) (Auto) 0.5 Neutrophils # (Auto) 11.9 Lymphocytes # (Auto) 1.6 Monocytes # (Auto) 0.7 Eosinophils # (Auto) 0.3 Basophils # (Auto) 0.1 CBC Comment DIFF FINAL Differential Comment Blood Urea Nitrogen 56 Creatinine 3.05 Random Glucose 108 Total Protein 6.9 Albumin 2.2 Calcium Level 8.5 Alkaline Phosphatase 75 Aspartate Amino Transf (AST/SGOT) 11 Alanine Aminotransferase (ALT/SGPT) 11 Total Bilirubin 0.5 Sodium Level 149 Potassium Level 3.4 Chloride Level 116 Carbon Dioxide Level 24.2 Anion Gap 9 Estimat Glomerular Filtration Rate 15 Date/Time Source Procedure Growth Status 11/10/17 06:15 Blood Peripheral Aerobic Blood Culture Pending Received 11/10/17 06:15 Blood Peripheral Anaerobic Blood Culture Pending Received 11/10/17 06:20 Urine Catheterized Urine Urine Culture Pending Received Imaging Last Impressions Chest X-Ray 11/10/17600 Signed Impressions: Service Date/Time: Friday, November 10, 2017 06:17 - CONCLUSION: No acute disease. Rosales Jay MD Abdomen/Pelvis CT 11/10/17 06 Signed Impressions: Service Date/Time: Friday, November 10, 2017 07:44 - CONCLUSION: 1.Focal abnormal circumferential wall thickening involving the descending colon at the level of the hepatic flexure with significant adjacent fluid tracking within the right paracardiac color. Given the extensive atherosclerosis and focal finding concern is for possible infarct. Infection is also within the differential diagnosis. 2. Interval placement of a right-sided percutaneous nephrostomy tube. Stable appearance of the right kidney with multiple renal stones. Josefa Hair MD Head CT 11/10/17 0000 Signed Impressions: Service Date/Time: Friday, November 10, 2017 11:22 - CONCLUSION: Stable exam. No acute abnormality.. Josefa Hair MD Physical Exam HEENT: PERRL; normocephalic; atraumatic; no jaundice. CHEST: rhonchi CARDIAC: RRR ABDOMEN: semifirm, distended, nontender; no hepatosplenomegaly; bowel sounds are present in all four quadrants. EXTREMITIES: No clubbing, cyanosis, or edema. SKIN: Normal; no rash; no jaundice. 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 Given the extensive atherosclerosis and focal finding concern is for possible infarct. Infection is also within the differential diagnosis. Interval placement of a right-sided percutaneous nephrostomy tube. Stable appearance of the right kidney with multiple renal stones. Febrile with leukocytosis C diff stool ordered by GS, pt started on IV Flagyl and Zosyn - Anemia, microcytic, hypochromic- hgb 10 in 11/11/17 pulled out NGT before completing prep. agitated somewhat. Son has not been reached for consents. RN unable to reach. I tried this morning 1100 and there is no answer or voicemail. d/w primary, they will attempt to reinsert NGT this afternoon and do prep for colonoscopy. If unsuccessful placing NGT , can do EGD to place and colonoscopy following day? had BM yesterday, reportedly hard and pebbly Plan: Colonoscopy tomorrow if consent obtained continue trying to reach son for consent clears today NPO after MN Place NG tube for bowel prep Half-lytely prep through NG Flagyl and Zosyn Pt has been seen and examined by myself and and myself (Mayra Avery) Physician Comments seen, examined ngt could not be inserted, possible egd/ngt placement in am medically necessary consent if family cannot be located speech therapy evaluation as she seems to have difficult time handling secretions consider flexisigmoidoscopy in am- if bowel prep cannot be done, we can administer enemas (Maura Donahue MD) Mayra Avery November 11, 2017 11:07 Maura Donahue MD November 11, 2017 17:42
--- NOTE | 2017-11-11 11:27 | HHI.PR ---
Subjective Remarks Nursing reports that the patient apparently appears to be in acute distress possibly secondary to pain. Also there is reports of the NG tube being pulled out by the patient last night, and the oral prep designated for the colonoscopy was thus not administered. When I asked the patient myself, she is clearly impaired in her speech which is likely a chronic problem since her most recent stroke. When I lightly touch her abdomen lightly touch her thighs in the presence of the nurse, she yells out loudly. Objective Vital Signs Date Time Temp Pulse Resp B/P (MAP) Pulse Ox O2 Delivery O2 Flow Rate FiO2 11/11/17 08:00 98.2 74 18 147/72 (97) 93 11/11/17 08:00 71 11/11/17 04:20 99.1 74 22 159/74 (102) 93 11/11/17 00:20 98.9 62 20 133/64 (87) 96 11/11/17 00:00 62 11/10/17 21:56 98.8 69 16 136/69 96 11/10/17 21:56 98.8 69 16 136/69 (91) 96 11/10/17 20:00 57 11/10/17 19:45 99 Nasal Cannula 3.00 11/10/17 18:56 98.2 63 18 122/58 99 11/10/17 18:17 98.1 74 18 134/63 95 11/10/17 15:30 98.0 67 16 95/56 (69) 98 11/10/17 12:39 99.9 66 18 133/68 (89) 99 Nasal Cannula 3.00 I/O 11/10/17 11/10/17 11/10/17 11/11/17 11/11/17 11/11/17 07:00 15:00 23:00 07:00 15:00 23:00 Intake Total 600 ml 150 ml Output Total 320 ml 300 ml 950 ml Balance -320 ml 300 ml -800 ml Intake IV Total 50 ml 150 ml Packed Cells 400 ml Blood Product IV Normal Saline Flush 150 ml Output Urine Total 300 ml 300 ml 725 ml Drainage Total 20 ml 225 ml # Voids 0 Result Diagram: 11/11/17 0620 11/11/17 0620 Objective Remarks Slurred speech, very limited conversive vocabulary, left wrist is chronically clenched, abdomen is soft, minimally distended, no guarding, expiratory wheezing heard otherwise is unlabored in her breathing, no focal crackles heard, on nasal cannula A/P Assessment and Plan 62-year-old white female admitted from a long-term facility for sepsis and acute hypoxic respiratory failure Acute hypoxic respiratory failure -Chest x-ray is negative, nasal cannula, -Improving since yesterday possible aspiration, monitor Sepsis likely secondary to UTI and/or colitis - BCs pending, UC pending, abx pending Possible UTI -Continue Zosyn and Flagyl Colitis -Infectious versus ischemic dylan given radiology read concerning for infarct -Continue antibiotics as above, will start aspirin, will start Lipitor, obtain EKG to see if there is any A. 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 CT head is negative for any acute findings. -improving SIMBA on CKD -IVFs, improving, BMP in AM hx of CVA -aspirin, starting lipitor restarting home metoprolol and oxycodone heparin Discharge Planning Admitted for sepsis, consulting palliative care to assess goals of care and needing surrogate decision maker for consenting to procedures including NG tube insertion and colonoscopy Storm Draper MD November 11, 2017 11:27
[2017-11-11] MEDS ORDERED: ASPIRIN 325 MG TAB PO ONE (12:00)
--- NOTE | 2017-11-11 14:36 | PD.CONS ---
Consult Service Palliative Care Consult Requested By Dr Draper Primary Care Physician Nii Stone M.D. Reason for Consultation a. To assist with evaluation and management of symptoms including: b. To assist medical decision maker(s) with: better understanding of current medical conditions; weighing benefits/burdens of medical treatment options; making medical treatment decisions. HPI History of Present Illness This 62-year-old patient presented to the ED on 11/10/17, from her nursing facility with reports of gurgling respirations, tachypnea and O2 sats in the 50s. She apparently is a resident of [facility] due to CVA, sepsis. She is nonverbal in the ED. ED reports temperature 102.9. They applied nonrebreather with O2 sats improved to 100%. Strong urine odor was reported by EMS * ED course: WBC 18.2. Hemoglobin 7.7/hematocrit 24.9. UA positive, culture obtained. Lactic acid 0.9. BUN 61/creatinine 3.97, GFR 11. blood cultures obtained. CXR no acute process. Abdomen pelvis CT=1.Focal abnormal circumferential wall thickening involving the descending colon at the level of the hepatic flexure with significant adjacent fluid tracking within the right paracardiac color. Given the extensive atherosclerosis and focal finding concern is for possible infarct. Infection is also within the differential diagnosis. 2. Interval placement of a right-sided percutaneous nephrostomy tube. Stable appearance of the right kidney with multiple renal stones. Concern for infarct/ ischemic: Versus infection. Patient admitted for sepsis. * Acute on chronic kidney injury noted likely prerenal acidemia versus ATN given sepsis. Rebolledo catheter placed. Transfused 2 units packed cells for acute anemia. * General surgery was consulted due to CT abdomen findings. Patient with colitis most notable at hepatic flexure. Unclear etiology of colitis. Infectious versus ischemic especially with vascular calcifications, and UTI which may have created a low flow state. Will rule out C. difficile. Already on Zosyn, add Flagyl. GI consulted to consider colonoscopy if we will provide additional information. General surgery to follow. If condition worsens may require operative intervention for evaluation of colon. * GI consulted; GI plan for colonoscopy NG tube to be placed for bowel prep. C. difficile pending. * 11/11 patient apparently discontinued NG tube herself, and prep for colonoscopy was unable to be completely administered. Documented providers have not been able to reach son to provide consent. * 11/11 palliative care consulted to assist with clarification of goals of treatment. Patient seen in room no visitors present. She has eyes closed however she does respond to my verbal and interaction. She primarily states yes and no to my questions and makes grunting, groaning sounds. Asked her who her son is and she states Dev. Ask her when she saw him she says yesterday. Not clear that he has been in not sure if this is accurate. Asked her if she knows his phone number she says no. When asked if she knows where she is at currently she does not answer. Asked where she lives she said [place]. She does not answer other questions regarding orientation. She tells me she is hungry and she wants lunch. Advised I will notify her nursing and aide so they can assist her , she tells me she can eat it. Observe clear liquid tray at bedside. To exam of feet, lower extremities she begins moaning loudly even with light touch. She says her legs hurt when I asked her though she is unable to further qualify. No obvious signs of inflammation etc. to exam. Bilateral foot drop noted. Following exam attempted to call both numbers we have listed for Michele, these are the same as listed on facility facesheet-[phone] number with no answer. The [phone] number person indicates that is not his number no one affiliated with patient at that number. Discussed with primary nurse, she has not seen any visitors. They have also attempted listed number with no answer. *ACCURINTS has been requested per case management to assist with location of possible family for decision making. Function/Cognitive Trajectory Long-term resident [facility], she has also been to [facility], and [facility]. Reported to use a wheelchair in facility though not clear if she is able to transfer or requires lift. Prior records indicate patient may have been transferred using a lift. Required assistance for all ADLs. + Speech deficit secondary to CVA. Per review of available electronic records and prior admissions patient able to answer a few yes and no questions, not completely oriented baseline left hemiparesis from prior CVA.[We are able to speak with son Daniela, falling patient's first stroke she lived with him for about 7 years with some assistance, after her second stroke required full care at that point she lived in a nursing facility, has lived there about 4 years. He reports baseline very mild confusion, at times in the past has required psychiatric medications for the most recently is mildly confused and cooperative.] Review of Systems ROS Limitations: Altered Mental Status, Speech Impaired, Poor Historian (s/p CVA) Constitutional: COMPLAINS OF: Pain (to legs per pt) Respiratory: COMPLAINS OF: Shortness of breath (*per facility) Psychiatric: COMPLAINS OF: Confusion Past Family Social History Coded Allergies: *MDRO Multi-Drug Resistant Organism (Verified Adverse Reaction, Unknown, ) 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 ESBL + E. 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 Past Medical History Hypertension Hyperlipidemia Diabetes CAD Atrial fibrillation on Xarelto. This was stopped on June 09, 2017 hospital admission due to hematuria CVA with left-sided hemiparesis History of carotid artery stenosis History of sepsis History of renal stones History of ESBL infection/VRE/MRSA Decubitus ulcer on heel and sacral area chronic Osteoarthritis Schizophrenia/bipolar disorder . Past Surgical History Coronary angiogram with stenting in RCA and LAD Hysterectomy Tonsillectomy Left hip ORIF Urinary stent Nephrostomy tube replacements 11/07/17 Dental extractions Reported Medications Milk of Magnesia Liq (Magnesium Hydroxide) 400 Mg/5 Ml Susp 30 Ml PO DAILY PRN Maalox Maximum Strength Susp (Mag Hydrox/Aluminum Hyd/Simeth) 400 Mg-400 Mg-40 Mg/5 Ml Oral.susp Glytrol (Nut.tx.gluc.intoler,Lac-Fr,Soy) 1,000 Ml Liquid 3 Can PO DAILY Tylenol (Acetaminophen) 325 Mg Tab 650 Mg PO Q6H PRN Hydralazine HCl 50 Mg Tablet 50 Mg PO TID Bisacodyl Supp (Bisacodyl) 10 Mg Supp 10 Mg RECTAL DAILY PRN Gabapentin 100 Mg Cap 100 Mg PO BID Glytrol (Nut.tx.gluc.intoler,Lac-Fr,Soy) 1,000 Ml Liquid 60 Ml PO TID Levemir Inj (Insulin Detemir) 1,000 unit/ 10 ML Vial 7 Units SQ HS Do not mix with any other Insulin. Thera M Plus (Multivitamins/Minerals Therapeutic) 1 Tab 1 Tab PO DAILY Sertraline (Sertraline HCl) 50 Mg Tab 50 Mg PO DAILY Senna-Tabs (Sennosides) 8.6 Mg Tab 8.6 Mg PO BID Risperidone 0.5 Mg Tab 0.5 Mg PO TID Omeprazole 20 Mg Tab 20 Mg PO DAILY Metoprolol Tartrate 25 Mg Tab 25 Mg PO BID . Current Medications Medications (Trade) Dose Ordered Sig/Sukhi Route Start Time Stop Time Status Last Admin Sodium Chloride 1,000 ml @ 75 mls/hr [id number] IV 11/10/17 11:13 11/11/17 13:14 (NS Flush) 2 ml UNSCH PRN IV FLUSH 11/10/17 11:15 (NS Flush) 2 ml BID IV FLUSH 11/10/17 21:00 11/11/17 08:47 (Zofran Odt) 4 mg Q6H PRN PO 11/10/17 11:15 (Narcan Inj) 0.4 mg UNSCH PRN IV PUSH 11/10/17 11:15 Piperacillin Sod/ Tazobactam Sod 50 ml @ 100 mls/hr Q8H IV 11/10/17 14:00 11/11/17 13:01 (Tylenol) 650 mg Q4H PRN PO 11/10/17 11:45 (Benadryl) 25 mg Q4H PRN PO 11/10/17 11:45 Metronidazole 100 ml @ 100 mls/hr Q6H IV 11/10/17 13:00 11/11/17 13:00 (Ecotrin Ec) 81 mg DAILY PO 11/12/17 09:00 Family History Son reports family history of hypertension. Her mother is still living at age 89 and fairly healthy Substance Use Tobacco: Per EMR history of smoking 1/2 PPD x many years Alcohol: None per EMR Prescription med abuse: None per EMR Illicits: None per EMR . Psychosocial History Per review of available records: Long-term resident of [facility]. She is . Noted to have one son . *Later able to speak with son. 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 Retired due to medical issues. Lived with him for many years after her first stroke though required shelter placement after her second stroke. Only has 1 son. Spiritual/Cultural Factors None recorded . Health Care Surrogate: Copy in medical record Date completed: 03/2013 Health Care Surrogate(s): Son Dev Wilson--this was misspelled by person completing form son's name is Daniela Ethical and Legal Issues Patient confused baseline, does not appear to have capacity to make medical decisions does not appear she will regain capacity. Her son is designated as healthcare surrogate on document dated 2012. They have not been able to reach him this admission for consent, of note palliative care was consulted on this patient in July 2017 and at that time there was no answer or voicemail on my multiple attempts. Physical Exam Vital Signs Date Time Temp Pulse Resp B/P (MAP) Pulse Ox O2 Delivery O2 Flow Rate FiO2 11/11/17 12:00 78 11/11/17 12:00 98.6 79 20 171/87 (115) 92 11/11/17 08:00 98.2 74 18 147/72 (97) 93 11/11/17 08:00 71 11/11/17 04:20 99.1 74 22 159/74 (102) 93 11/11/17 00:20 98.9 62 20 133/64 (87) 96 11/11/17 00:00 62 11/10/17 21:56 98.8 69 16 136/69 96 11/10/17 21:56 98.8 69 16 136/69 (91) 96 11/10/17 20:00 57 11/10/17 19:45 99 Nasal Cannula 3.00 11/10/17 18:56 98.2 63 18 122/58 99 11/10/17 18:17 98.1 74 18 134/63 95 11/10/17 15:30 98.0 67 16 95/56 (69) 98 Exam CONSTITUTIONAL/GENERAL: Well-nourished female, in no distress TUBES/LINES/DRAINS: Peripheral IV upper extremity. Nasal cannula, Rebolledo catheter SKIN: No jaundice, rashes, or lesions. Ecchymoses on upper extremities. No wounds seen anteriorly. Skin temperature appropriate. Not diaphoretic. HEAD: Atraumatic. Normocephalic. EYES: Pupils equal and round and reactive. Extraocular motions intact. Does not fully open eyes or appear to focus, appears may have visual deficits. no scleral icterus. No injection or drainage. Fundi not examined. ENT: . Nose without bleeding or purulent drainage. Throat without visible erythema, exudates, masses, or lesions. Poor dentition. NECK: Trachea midline. Supple, nontender. No palpable thyroid enlargement or nodularity. CARDIOVASCULAR: Regular rate and rhythm without murmur. No JVD. Peripheral pulses symmetric. RESPIRATORY/CHEST: Symmetric, unlabored respirations. Scattered rhonchi. Breath sounds equal bilaterally. On nasal cannula. GASTROINTESTINAL: Abdomen soft, mildly tender, +distended. No hepato- splenomegaly, or palpable masses. + guarding. Bowel sounds hypoactive. GENITOURINARY: Without palpable bladder distension. Rebolledo catheter in place. MUSCULOSKELETAL: Extremities without clubbing, cyanosis. Trace pedal edema. + Tenderness to entire lower legs even to light touch patient unable to further qualify. Trace edema otherwise no apparent issues, did not test range of motion as she is moaning in pain.+ Bilateral foot drop. LYMPHATICS: No palpable cervical or supraclavicular adenopathy. NEUROLOGICAL: Awake . Appears oriented to self, son, prior residence in [place]. Confused to hospitalization. Limited verbalization primarily yes /no and occasional few other words. Does not consistently follow commands. Left upper extremity rigid, contracted. Right upper extremity with generalized weak movement. Does not move lower extremities to command. PSYCHIATRIC: Initially calm, though moaning out with exam to lower extremities Diagnostic Tests Laboratory Laboratory Tests Test 11/10/17 06:10 11/10/17 06:20 11/11/17 06:20 White Blood Count 18.2 TH/MM3 (4.0-11.0) 14.6 TH/MM3 (4.0-11.0) Red Blood Count 3.07 MIL/MM3 (4.00-5.30) 3.17 MIL/MM3 (4.00-5.30) Hemoglobin 7.7 GM/DL (11.6-15.3) 8.4 GM/DL (11.6-15.3) Hematocrit 24.9 % (35.0-46.0) 25.6 % (35.0-46.0) Mean Corpuscular Volume 81.1 FL (80.0-100.0) 80.9 FL (80.0-100.0) Mean Corpuscular Hemoglobin 25.2 PG (27.0-34.0) 26.4 PG (27.0-34.0) Mean Corpuscular Hemoglobin Concent 31.0 % (32.0-36.0) 32.7 % (32.0-36.0) Red Cell Distribution Width 17.1 % (11.6-17.2) 16.6 % (11.6-17.2) Platelet Count 236 TH/MM3 (150-450) 227 TH/MM3 (150-450) Mean Platelet Volume 9.0 FL (7.0-11.0) 8.8 FL (7.0-11.0) CBC Comment AUTO DIFF DIFF FINAL Differential Total Cells Counted 100 Neutrophils % (Manual) 76 % (16-70) Band Neutrophils % 10 % (0-6) Lymphocytes % 10 % (9-44) Monocytes % 4 % (0-8) Neutrophils # (Manual) 15.7 TH/MM3 (1.8-7.7) Differential Comment FINAL DIFF MANUAL Platelet Estimate NORMAL (NORMAL) Platelet Morphology Comment NORMAL (NORMAL) Keratocytes 1+ (NORMAL) Blood Urea Nitrogen 61 MG/DL (7-18) 56 MG/DL (7-18) Creatinine 3.97 MG/DL (0.50-1.00) 3.05 MG/DL (0.50-1.00) Random Glucose 165 MG/DL (74-106) 108 MG/DL (74-106) Total Protein 7.7 GM/DL (6.4-8.2) 6.9 GM/DL (6.4-8.2) Albumin 2.6 GM/DL (3.4-5.0) 2.2 GM/DL (3.4-5.0) Calcium Level 9.0 MG/DL (8.5-10.1) 8.5 MG/DL (8.5-10.1) Alkaline Phosphatase 91 U/L (45-117) 75 U/L (45-117) Aspartate Amino Transf (AST/SGOT) 13 U/L (15-37) 11 U/L (15-37) Alanine Aminotransferase (ALT/SGPT) 14 U/L (10-53) 11 U/L (10-53) Total Bilirubin 0.3 MG/DL (0.2-1.0) 0.5 MG/DL (0.2-1.0) Sodium Level 144 MEQ/L (136-145) 149 MEQ/L (136-145) Potassium Level 4.1 MEQ/L (3.5-5.1) 3.4 MEQ/L (3.5-5.1) Chloride Level 110 MEQ/L (98-107) 116 MEQ/L (98-107) Carbon Dioxide Level 23.9 MEQ/L (21.0-32.0) 24.2 MEQ/L (21.0-32.0) Anion Gap 10 MEQ/L (5-15) 9 MEQ/L (5-15) Estimat Glomerular Filtration Rate 11 ML/MIN (>89) 15 ML/MIN (>89) Lactic Acid Level 0.9 mmol/L (0.4-2.0) Urine Color LIGHT-RED (YELLW/STRAW) Urine Turbidity CLOUDY (CLEAR) Urine pH 6.0 (5.0-8.5) Urine Specific [place] 1.025 (1.002-1.035) Urine Protein 300 mg/dL (NEG-TRACE) Urine Glucose (UA) NEG mg/dL (NEG) Urine Ketones TRACE mg/dL (NEG) Urine Occult Blood LARGE (NEG) Urine Nitrite NEG (NEG) Urine Bilirubin NEG (NEG) Urine Urobilinogen LESS THAN 2.0 MG/DL (LESS Urine Leukocyte Esterase LARGE (NEG) Urine RBC /hpf (0-3) Urine WBC /hpf (0-5) Urine WBC Clumps MANY (NONE) Urine Bacteria MANY /hpf (NONE) Microscopic Urinalysis Comment CATH-CULTURE IND Neutrophils (%) (Auto) 81.8 % (16.0-70.0) Lymphocytes (%) (Auto) 10.7 % (9.0-44.0) Monocytes (%) (Auto) 4.6 % (0.0-8.0) Eosinophils (%) (Auto) 2.4 % (0.0-4.0) Basophils (%) (Auto) 0.5 % (0.0-2.0) Neutrophils # (Auto) 11.9 TH/MM3 (1.8-7.7) Lymphocytes # (Auto) 1.6 TH/MM3 (1.0-4.8) Monocytes # (Auto) 0.7 TH/MM3 (0-0.9) Eosinophils # (Auto) 0.3 TH/MM3 (0-0.4) Basophils # (Auto) 0.1 TH/MM3 (0-0.2) Result Diagram: 11/11/1761911/11/17619 Microbiology Microbiology Date/Time Source Procedure Growth Status 11/10/17 06:15 Blood Peripheral Aerobic Blood Culture - Preliminary NO GROWTH IN 1 DAY Resulted 11/10/17 06:15 Blood Peripheral Anaerobic Blood Culture - Preliminary NO GROWTH IN 1 DAY Resulted 11/10/17 06:10 Blood Peripheral Aerobic Blood Culture - Preliminary NO GROWTH IN 1 DAY Resulted 11/10/17 06:10 Blood Peripheral Anaerobic Blood Culture - Preliminary NO GROWTH IN 1 DAY Resulted 11/10/17 06:20 Urine Catheterized Urine Urine Culture - Preliminary Pseudomonas Aeruginosa Resulted Imaging Last Impressions Chest X-Ray 11/10/17600 Signed Impressions: Service Date/Time: Friday, November 10, 2017 06:17 - CONCLUSION: No acute disease. Rosales Jay MD Abdomen/Pelvis CT 11/10/17600 Signed Impressions: Service Date/Time: Friday, November 10, 2017 07:44 - CONCLUSION: 1.Focal abnormal circumferential wall thickening involving the descending colon at the level of the hepatic flexure with significant adjacent fluid tracking within the right paracardiac color. Given the extensive atherosclerosis and focal finding concern is for possible infarct. Infection is also within the differential diagnosis. 2. Interval placement of a right-sided percutaneous nephrostomy tube. Stable appearance of the right kidney with multiple renal stones. Josefa Hair MD Head CT 11/10/17 0000 Signed Impressions: Service Date/Time: Friday, November 10, 2017 11:22 - CONCLUSION: Stable exam. No acute abnormality.. Josefa Hair MD Patient/Family Conference Family Conference Time (mins): 20 Family Conference Location: Telephone Issues Discussed: 1700----- Later able to reach son, palliative public health social worker able to establish contact with him. Discussion included the following: * Palliative care role, team members, reason for consult * Additional medical/social/spiritual history * Patient cognitive / functional status in the months to weeks prior to this admission * Patient and/or family understanding of current medical conditions, prognosis, options * Review of option to transition to comfort focus at any point, patient condition currently not critical or terminal though she does remain high risk for ongoing complications and sequelae of chronic debility and multiple medical conditions. * CODE STATUS[] full code at this time based on patient's last known wishes, son indicates he has had ongoing conversations with the patient and that she has wanted to keep trying to live that she has had some reasonable quality of life in the shelter setting. * Palliative care contact information provided All questions answered to the best of my ability, provided son with palliative contact information. Called back to nursing unit notified nursing of updated contact information, provided with correct telephone number and name for son. . Assessment and Plan Disease Oriented Problem List: (1) Anemia (2) Hematuria (3) Acute kidney injury (4) ESBL (extended spectrum beta-lactamase) producing bacteria infection (5) Atrial fibrillation (6) CAD (coronary artery disease) (7) Schizophrenia (8) Dyslipidemia (9) UTI (urinary tract infection) (10) Hydronephrosis (11) Severe sepsis with acute organ dysfunction (12) right MCA stroke 2013, with left hemiparesis (13) hypertension (14) history of decubiti (15) chronic kidney disease (16) coronary artery disease, history of stents (17) dislodging of nephrostomy tube, replaced 07/17/17 Symptom Scale: (1) Confusion 0-10 Scale: Unable to quantify (2) Dyspnea 0-10 Scale: Unable to quantify (3) pain 0-10 Scale: Unable to quantify Pertinent Non-Medical Issues Psychosocial: Spiritual: Legal:Patient confused baseline, does not appear to have capacity to make medical decisions does not appear she will regain capacity. Her son is designated as healthcare surrogate on document dated 2012. They have not been able to reach him this admission for consent, of note palliative care was consulted on this patient in July 2017 and at that time there was no answer or voicemail on my multiple attempts. Her review further of old records in May 2017 case management requested wellness checks at patient's son possible address, this person did not live there. Apparently at some point in 2014 the son was incarcerated per CM notes. Not clear his location at this time , per palliative public health social worker review of [employer] record search 10/16/17 appears a Dev Wilson was arrested through [employer] however he was not incarcerated was released-- not clear if this person is related to pt. Will request Material WrldINT search to identify possible decision makers. 11/11/17 palliative public health social worker reviewed findings of accurint report and social network search--able to locate and initiate contact through Son's girlfriend number, son is actually DANIELA Wilson [phone] Ethical issues impacting care: none identified Important Contacts SON/HCS Daniela Wilson [phone] NOT Dev Wilson [phone], [phone]-->this # is NOT anyone related to pt . Prognosis This patient has multiple chronic medical conditions. She has been debilitated and lives in a shelter long-term. Due to these multiple conditions, she will likely continue to have ongoing complications, setbacks and recurrent hospitalizations. . Code Status: Full Code Plan * Legal decision maker:Patient confused baseline, does not appear to have capacity to make medical decisions does not appear she will regain capacity. Her son is designated as healthcare surrogate on document dated 2012. They have not been able to reach him this admission for consent, of note palliative care was consulted on this patient in July 2017 and at that time there was no answer or voicemail on my multiple attempts. Her review further of old records in May 2017 case management requested wellness checks at patient's son possible address, this person did not live there. Apparently at some point in 2014 the son was incarcerated per CM notes. Not clear his location at this time, per palliative public health social worker review of [employer] record search 10/16/17 appears a Dev Wilson was arrested through [email or web address] system however he was not incarcerated was released-- not clear if this person is related to pt. Will request ACCURINT search to identify possible decision makers. 11/11/17 palliative public health social worker reviewed findings of accurint report and social network search--able to locate and initiate contact through Son's girlfriend number, son is actually DANIELA Wilson [phone] * Goals: Aggressive for now, cont available treatments, including full code. I Called back to nursing unit notified nursing of updated contact information, provided with correct telephone number and name for son. * CODE STATUS: full code * SYMPTOMS: --Encephalopathy-patient status post CVA likely with some residual cognitive deficits. Also with long psychiatric history per records. May be baseline status? --Dyspnea-EMS activated for respiratory distress, low O2 sats. CXR no acute process. Tolerating nasal cannula currently.+ Some upper airway rhonchi but no apparent respiratory distress, will continue to evaluate --Pain-patient appears very tender/painful with minimal touch and exam to both lower extremities. Unable to determine specific location or quality of pain she begins moaning with any type of exam to lower extremities. No obvious erythema or edema. Trace pedal edema. Bilateral foot drop. ? Etiology chronic immobility/bedbound status. It is noted she is on gabapentin 100 mg twice daily, may have some neuropathic pain. May require additional analgesics if pain persists/worsens , though difficult to further assess/quantify, will continue to evaluate. Appears comfortable when at rest and lower extremities are not disturbed. per d/w son pt w chronic pain to BLE since bedbound. May consider tylenol prn, cautious use of opiates * Palliative care will continue to follow during hospital course as condition evolves, to assist patient/decision-maker with understanding of medical conditions, weighing benefits/burdens of treatment options, for clarification of goals of treatment. Additionally will assist with any symptoms of palliative concern . Time Spent Total Floor Time (mins): 70 (Chart review, PE, discussion with nursing, discussion with son once able to reach via phone) Thank you for the opportunity to participate in the care of Ms. Wilson. Attestation To help prompt me to consider important information that might be impacting today's encounter and assessment, information from prior notes written by myself or my colleagues may have been "brought forward" into today's note. My signature on this note, however, is an attestation that I personally performed the exam, history, and/or decision-making noted today, and, unless otherwise indicated, the interactions with patient, family, and staff as well as the review of records all occurred today. I also attest that the listed assessment and stated plan reflect my best clinical judgment today based on the combination of historical information, prior notes, and today's exam/ interactions. When time spent is documented, it refers only to time spent today by the signer, or if indicated, combined time spent today by collaborating physician/nurse practitioner. Emperatriz Morales November 11, 2017 14:35
--- NOTE | 2017-11-11 15:39 | HHI.HCPN ---
Accurint results obtained: Son: Surinder Wilson * [phone]: number just rings * [phone]: wrong number * Found potential match on social media-- private message sent. Marta Wilson, relationship unknown * [phone]: number just rings * [phone]: left message requesting call back * [phone]: Not related * [phone]: voicemail not activated * [phone]: number rings busy/disconnected * [phone]: number rings busy/disconnected * [phone]: voicemail not activated * Found potential match on social media-- private message sent All numbers listed above to same address. No other possible matches on google search. Kamla Flores, DIRECTOR OF HOTEL November 11, 2017 15:39
[2017-11-11] MEDS: oxyCODONE/ACETAMINOPHEN 5 MG/325 MG TAB PO PRN (18:58)
[2017-11-11] MEDS: GABAPENTIN 100 MG CAP PO SCH (23:07)
[2017-11-11] MEDS: ATORVASTATIN 40 MG TAB PO SCH (23:08)
[2017-11-11] MEDS: METOPROLOL TARTRATE 25 MG TAB PO SCH (23:08)
[2017-11-12] VITALS (9 sets, daily range): BP systolic 137–180; BP diastolic 60–85; PULSE 58–81; RESP 18–20; TEMP 97.3–99; O2SAT 95–99
[2017-11-12] MEDS: metroNIDAZOLE 500 MG INJ 100 ML IV SCH ×4 (01:00→18:21)
[2017-11-12] MEDS: SODIUM CHLOR 0.45% 1000 ML INJ 1,000 ML IV SCH ×2 (02:27→16:33)
[2017-11-12] MEDS ORDERED: METOPROLOL TARTRATE 25 MG TAB PO PRN (04:30)
[2017-11-12] MEDS ORDERED: INSULIN HUMAN REGULAR 1,000 UNITS/10 ML VIAL SQ PRN (04:30)
[2017-11-12] MEDS ORDERED: POVIDONE IODINE 5% (ANTISEPSIS KIT) 4 APPLICATIONS EACH NARE PRN (04:30)
[2017-11-12] MEDS ORDERED: LACTATED RINGER'S 1000 ML IV PRN (04:30)
[2017-11-12] MEDS ORDERED: SODIUM CHLORID 0.9% 500 ML IV PRN (04:30)
[2017-11-12] MEDS ORDERED: CHLORHEXIDINE GLUCONATE 2 % 1 PACK (2 CLOTHS) TOPICAL PRN (04:30)
[2017-11-12] MEDS: PIPERACIL-TAZO 2.25 GM PREMIX 50 ML IV SCH ×3 (05:18→20:32)
[2017-11-12] MEDS: oxyCODONE/ACETAMINOPHEN 5 MG/325 MG TAB PO PRN ×2 (05:18→20:32)
[2017-11-12 06:31] LABS: AUTOMATED NEUTROPHIL # 13.8 TH/MM3 (1.8-7.7); BASOPHIL # 0.1 TH/MM3 (0-0.2); BASOPHIL % 0.6 % (0.0-2.0); EOSINOPHIL # 0.3 TH/MM3 (0-0.4); EOSINOPHIL % 1.7 % (0.0-4.0); HEMOGLOBIN 8.9 GM/DL (11.6-15.3); LYMPH % 9.1 % (9.0-44.0); LYMPHOCYTE # 1.5 TH/MM3 (1.0-4.8); MEAN CELL VOLUME 81.3 FL (80.0-100.0); MEAN CORPUSCULAR HEMOGLOBIN 25.8 PG (27.0-34.0); MEAN CORPUSCULAR HGB CONC 31.7 % (32.0-36.0); MEAN PLATELET VOLUME 9.1 FL (7.0-11.0); MONO % 4.7 % (0.0-8.0); MONOCYTE # 0.8 TH/MM3 (0-0.9); NEUT % 83.9 % (16.0-70.0); PLATELET COUNT 253 TH/MM3 (150-450); RED BLOOD COUNT 3.44 MIL/MM3 (4.00-5.30); RED CELL DISTRIBUTION WIDTH 17.1 % (11.6-17.2); WHITE BLOOD COUNT 16.5 TH/MM3 (4.0-11.0)
[2017-11-12 07:48] LABS: CALCIUM 8.5 MG/DL (8.5-10.1); CREATININE 2.66 MG/DL (0.50-1.00)
[2017-11-12] MEDS: SERTRALINE HCL 50 MG TAB PO SCH (08:49)
[2017-11-12] MEDS: GABAPENTIN 100 MG CAP PO SCH ×2 (08:49→20:31)
[2017-11-12] MEDS: MORPHINE SULFATE 4 MG/ML INJ IV PRN ×2 (08:50→15:19)
[2017-11-12] MEDS: ASPIRIN EC 81 MG TABEC PO SCH (08:50)
[2017-11-12] MEDS: risperiDONE 0.5 MG TAB PO SCH ×3 (08:50→18:00)
[2017-11-12] MEDS: METOPROLOL TARTRATE 25 MG TAB PO SCH ×2 (08:51→20:31)
[2017-11-12] MEDS: SODIUM CHLORIDE 0.9% FLUSH 10 ML FLUSH IV FLUSH SCH ×2 (08:51→20:31)
--- NOTE | 2017-11-12 09:38 | EKG ---
Date Performed: 11/11/2017 Time Performed: 11:07:20 PTAGE: 62 years EKG: Sinus rhythm . Anterolateral ST-T changes are nonspecific Borderline ECG Since the PREVIOUS TRACING , no significant change noted PREVIOUS TRACIN04/12/2017 11.00 DOCTOR: Nina Conner Interpretating Date/Time 11/12/2017 09:38:01
--- NOTE | 2017-11-12 10:04 | GIPROC ---
[facility] [address] [facility]. [facility], [id number] COLONOSCOPY PROCEDURE REPORT EXAM DATE: 11/12/2017 PATIENT NAME: Cleo Wilson MR #: [id number] BIRTHDATE: 1955 ENDOSCOPIST: Maura Donahue MD ORDER #: [id number] BUSINESS SYSTEMS ADMINISTRATOR: Kb Roque and Yvonne Perez STATUS: inpatient INDICATIONS: The patient is a 62 yr old female here for a colonoscopy due to abnormal ct PROCEDURE PERFORMED: Colonoscopy with biopsy MEDICATIONS: None and Per Anesthesia. PREP QUALITY: poor PREP TYPE:Other: ESTIMATED BLOOD LOSS: None CONSENT: The patient understands the risks and benefits of the procedure and understands that these risks include, but are not limited to: sedation, allergic reaction, infection, perforation and/or bleeding. Alternative means of evaluation and treatment include, among others: physical exam, x-rays, and/or surgical intervention. The patient elects to proceed with this endoscopic procedure. medical equipment was checked for proper function. Hand hygiene and appropriate measures for infection prevention was taken. After the risks, benefits and alternatives of the procedure were thoroughly explained, Informed consent was verified, confirmed and timeout was successfully executed by the treatment team. A digital exam revealed external hemorrhoids The Pentax EC-[id number] endoscope was introduced through the anus and advanced to the cecum, which was identified by both the appendix and ileocecal valve. The instrument was then slowly withdrawn as the colon was fully examined. COLON FINDINGS: Severe diverticulosis sigmoid,descending poor prep. Biopsy descending colon egd was not done as no consent was obtained fro it ngt was palced by anesthesia with no incident , placement cecked. Retroflexed views revealed internal hemorrhoids and Retroflexed views revealed small internal hemorrhoids The scope was then completely withdrawn from the patient and the procedure terminated. ADVERSE EVENTS: There were no complications. IMPRESSIONS: 1. Severe diverticulosis sigmoid,descending poor prep 2. Retroflexed views revealed internal hemorrhoids 3. Retroflexed views revealed small internal hemorrhoids 4. Revealed external hemorrhoids RECOMMENDATIONS: 1. Await biopsy results. Biopsy results will not be ready for 7-10 days. If you don't hear from us in two weeks, call our office for results. 2. Diet as per speech therapy RECALL: Return 3 months Colonoscopy Maura Donahue MD eSigned: Maura Donahue MD 11/12/2017 10:04 AM cc:
[2017-11-12] MEDS ORDERED: DO NOT ADM ANY ANTICOAGULANT DRUGS PRN (10:08)
[2017-11-12] MEDS: *LABETALOL HCL 100 MG/20 ML VIAL PERIprocedural Use ONLY ONE (10:18)
--- NOTE | 2017-11-12 11:40 | HHI.PR ---
Subjective Subjective Notes She denies abdominal pain when questioned. Had colonoscopy showing severe diverticulosis, poor prep. Objective Vitals/I&O Vital Signs Date Time Temp Pulse Resp B/P (MAP) Pulse Ox O2 Delivery O2 Flow Rate FiO2 11/12/17 10:40 97.6 72 16 157/72 (100) 96 Nasal Cannula 2 Labs Laboratory Tests Test 11/12/17 04:28 White Blood Count 16.5 Red Blood Count 3.44 Hemoglobin 8.9 Hematocrit 28.0 Mean Corpuscular Volume 81.3 Mean Corpuscular Hemoglobin 25.8 Mean Corpuscular Hemoglobin Concent 31.7 Red Cell Distribution Width 17.1 Platelet Count 253 Mean Platelet Volume 9.1 Neutrophils (%) (Auto) 83.9 Lymphocytes (%) (Auto) 9.1 Monocytes (%) (Auto) 4.7 Eosinophils (%) (Auto) 1.7 Basophils (%) (Auto) 0.6 Neutrophils # (Auto) 13.8 Lymphocytes # (Auto) 1.5 Monocytes # (Auto) 0.8 Eosinophils # (Auto) 0.3 Basophils # (Auto) 0.1 CBC Comment DIFF FINAL Differential Comment Blood Urea Nitrogen 44 Creatinine 2.66 Random Glucose 105 Calcium Level 8.5 Sodium Level 149 Potassium Level 3.5 Chloride Level 116 Carbon Dioxide Level 23.0 Anion Gap 10 Estimat Glomerular Filtration Rate 18 Date/Time Source Procedure Growth Status 11/10/17 06:15 Blood Peripheral Aerobic Blood Culture - Preliminary NO GROWTH IN 2 DAYS Resulted 11/10/17 06:15 Blood Peripheral Anaerobic Blood Culture - Preliminary NO GROWTH IN 2 DAYS Resulted 11/10/17 06:20 Urine Catheterized Urine Urine Culture - Preliminary Pseudomonas Aeruginosa Multi-Drug Resistant Gram Negative Chapo Group D Enterococcus Resulted Radiology Last Impressions Chest X-Ray 11/10/17600 Signed Impressions: Service Date/Time: Friday, November 10, 2017 06:17 - CONCLUSION: No acute disease. Rosales Jay MD Abdomen/Pelvis CT 11/10/17600 Signed Impressions: Service Date/Time: Friday, November 10, 2017 07:44 - CONCLUSION: 1.Focal abnormal circumferential wall thickening involving the descending colon at the level of the hepatic flexure with significant adjacent fluid tracking within the right paracardiac color. Given the extensive atherosclerosis and focal finding concern is for possible infarct. Infection is also within the differential diagnosis. 2. Interval placement of a right-sided percutaneous nephrostomy tube. Stable appearance of the right kidney with multiple renal stones. Josefa Hair MD Head CT 11/10/17 0000 Signed Impressions: Service Date/Time: Friday, November 10, 2017 11:22 - CONCLUSION: Stable exam. No acute abnormality.. Josefa Hair MD Narrative Exam Awake and alert. Abd: distended. Groans with palpation both upper quadrants. A/P Assessment and Plan 62 yo F with h/o CVA, with UTI and colitis at hepatic flexure. Infectious vs ischemic colitis. D/w Dr. Donahue. Colonoscopy showed severe diverticulosis, no evidence of ischemia but prep was poor. WBC slightly increased from yesterday. Has UTI. No evidence of need for surgical intervention. Ok to proceed with slowly introducing diet from my standpoint. I will sign off and be available as needed. Luke Guerrero MD November 12, 2017 11:40
[2017-11-12] MEDS ORDERED: LIDOCAINE HCL 1% PF 5 ML SYRINGE OTHER ONE (12:00)
[2017-11-12] MEDS ORDERED: PROPOFOL 200 MG/20 ML AMP IV ONE (12:00)
--- NOTE | 2017-11-12 13:23 | HHI.PR ---
Subjective Remarks Nursing denies any deterioration since last night. Nursing reports that they were able to get consent from the son for the NG tube to EGD and the colonoscopy procedures. Patient had NG tube placed this morning, per nursing is in need of assisting restraints due to the patient trying to disrupt NG tube. Objective Vital Signs Date Time Temp Pulse Resp B/P (MAP) Pulse Ox O2 Delivery O2 Flow Rate FiO2 11/12/17 12:08 61 11/12/17 12:00 98.5 81 19 160/75 (103) 99 11/12/17 10:40 97.6 72 16 157/72 (100) 96 Nasal Cannula 2 11/12/17 10:30 67 16 162/75 (104) 95 Nasal Cannula 2 11/12/17 10:15 65 16 184/77 (112) 95 Nasal Cannula 2 11/12/17 10:08 98.0 62 16 139/65 (89) 100 Nasal Cannula 3 11/12/17 09:06 98.2 70 18 167/77 (107) 94 11/12/17 08:00 Nasal Cannula 2.00 11/12/17 08:00 99.0 70 19 170/81 (110) 95 11/12/17 04:05 58 11/12/17 04:00 99.0 69 18 168/85 (112) 97 11/12/17 04:00 Nasal Cannula 2.00 11/12/17 00:01 99.0 69 18 168/85 (112) 97 11/12/17 00:01 Nasal Cannula 2.00 11/11/17 23:53 79 11/11/17 20:00 99.9 79 19 176/84 (114) 97 11/11/17 20:00 Nasal Cannula 2.00 11/11/17 19:57 83 11/11/17 16:00 67 11/11/17 16:00 98.0 83 18 176/79 (111) 93 I/O 11/11/17 11/11/17 11/11/17 11/12/17 11/12/17 11/12/17 07:00 15:00 23:00 07:00 15:00 23:00 Intake Total 150 ml 150 ml 220 ml 1435 ml 200 ml Output Total 950 ml 1000 ml 1450 ml 350 ml Balance -800 ml 150 ml -780 ml -15 ml -150 ml Intake Oral 120 ml 480 ml IV Total 150 ml 150 ml 100 ml 955 ml 200 ml Output Urine Total 725 ml 1000 ml 950 ml 350 ml Drainage Total 225 ml 500 ml # Voids 2 # Bowel Movements 0 4 Result Diagram: 11/12/1742711/12/17427 Objective Remarks Slurred speech, very limited conversive vocabulary, left wrist is chronically clenched, abdomen is soft, obese overall, mild to moderately distended with minimal tenderness over the epigastrium and right sided quadrant A/P Assessment and Plan 62-year-old white female admitted from a long-term facility for sepsis and acute hypoxic respiratory failure Acute hypoxic respiratory failure -Chest x-ray is negative, nasal cannula, -Improving since yesterday possible aspiration, monitor Sepsis likely secondary to UTI and/or colitis - BCs pending, UC pending, abx pending Possible UTI -Continue Zosyn and Flagyl -Appears to show colonization Colitis -Infectious versus ischemic dylan given radiology read concerning for infarct -Continue antibiotics as above -aspirin, Lipitor, -Independently reviewed EKG and I see no A. fib ; monitor on telemetry to shredder picker any obvious arrhythmias -Discussed with general surgery who sees no need for surgical intervention and is signing off -GI following, status post sigmoidoscopy with no significant pertinent positive findings apart from poor prep Encephalopathy -Likely multifactorial,likely secondary to sepsis superimposed on chronic cognitive impairment secondary to prior CVA. CT head is negative for any acute findings. -improving Aspiration risks -Likely from prior CVA, speech therapy has concluded patient is not a candidate for p.o. intake. Tube feeds is safest option, placing dietitian consult and notifying palliative care to help assess goals of care especially with son's input SIMBA on CKD -IVFs, improving -BMP in AM hx of CVA -aspirin, starting lipitor home metoprolol and oxycodone heparin Discharge Planning speech therapy has concluded patient is not a candidate for p.o. intake. Tube feeds is safest option, placing dietitian consult and notifying palliative care to help assess goals of care especially with son's input. Could possibly be a candidate for hospice at long-term living facility. I called the son's phone number, no answer, left voicemail. Storm Draper MD November 12, 2017 13:23
--- NOTE | 2017-11-12 14:54 | HHI.HCPN ---
Reason for visit a. To assist with evaluation and management of symptoms including: dysphagia ,dyspnea, pain b. To assist medical decision maker(s) with: better understanding of current medical conditions; weighing benefits/burdens of medical treatment options; making medical treatment decisions. Subjective/Interval History *Palliative care reconsulted today by medical attending, palliative care already involved/ actively following this patient. Pt seen today to follow up on comfort/goals. S/p colonoscopy per GI: +findings Severe diverticulosis sigmoid,descending colon. + Hemorrhoids. Biopsy obtained , pathology pending. General surgery signed off no need for surgical intervention at this time. WBC remains elevated at 16.5. BUN and creatinine slowly improving 44/2.66. Urine culture:Pseudomonas Aeruginosa, Multi-Drug Resistant, Gram Negative Chapo, Group D Enterococcus. Patient on Zosyn, Flagyl. ST following, recommends NPO [PATIENT IS CURRENTLY DEMONSTRATING SEVERE PHARYNGEAL PHASE AND MODERATE TO SEVERE ORAL PHASE DYSPHAGIA WITH HIGH RISK OF ASPIRATION. THIS IS A DECLINE IN FUNCTION IN COMPARISON TO PRIOR GASOLINE CATALYST OPERATOR EVALUATIONS.] Known history of dysphasia and dysarthria and prior barium swallow studies. During May 2017 evaluation patient was tolerating pured diet with nectar thickened liquids. Dietitian also following patient recommendations: Glucerna 1.5 at 55 mL's an hour to provide 1980 kcals. Patient seen today in room with primary nurse Jack at bedside. Patient is alert, oriented to self and son. She does not appear to understand she is in the hospital. Limited verbalization 1 or 2 words and yes/no. Explore with her recent diagnostics explained colonoscopy findings, explained speech therapy recommendations and reason for placement of NG tube in her nose. Explore with her that I will call her son to discuss further. Ask her if there is anything she would like me to tell him, she says " come see me ". Ask her how she is feeling she does not answer, ask if she has pain she says in her legs. Ask if they hurt sometimes her all the time she says always. She is unable to further quantify or qualify. Mildly tachypneic at times. NG tube in place. Wrist restraints in place, nursing indicates patient previously pulled out NG tube. Nursing indicates spoke with son earlier on the phone and he indicated he would proceed with feeding tube if indicated. . Family/friend interactions Following exam call to son Daniela, no answer, voicemail left with my contact information. . Advance Directives Health Care Surrogate: Copy in medical record Advance Directive Specifics Date completed: 03/2013 Health Care Surrogate(s): Son Dev Wilson--this was misspelled by person completing form son's name is Daniela Objective Vital Signs Date Time Temp Pulse Resp B/P (MAP) Pulse Ox O2 Delivery O2 Flow Rate FiO2 11/12/17 12:08 61 11/12/17 12:00 98.5 81 19 160/75 (103) 99 11/12/17 10:40 97.6 72 16 157/72 (100) 96 Nasal Cannula 2 11/12/17 10:30 67 16 162/75 (104) 95 Nasal Cannula 2 11/12/17 10:15 65 16 184/77 (112) 95 Nasal Cannula 2 11/12/17 10:08 98.0 62 16 139/65 (89) 100 Nasal Cannula 3 11/12/17 09:06 98.2 70 18 167/77 (107) 94 11/12/17 08:00 Nasal Cannula 2.00 11/12/17 08:00 99.0 70 19 170/81 (110) 95 11/12/17 04:05 58 11/12/17 04:00 99.0 69 18 168/85 (112) 97 11/12/17 04:00 Nasal Cannula 2.00 11/12/17 00:01 99.0 69 18 168/85 (112) 97 11/12/17 00:01 Nasal Cannula 2.00 11/11/17 23:53 79 11/11/17 20:00 99.9 79 19 176/84 (114) 97 11/11/17 20:00 Nasal Cannula 2.00 11/11/17 19:57 83 11/11/17 16:00 67 11/11/17 16:00 98.0 83 18 176/79 (111) 93 Intake & Output 11/12/17 11/12/17 07:00 19:00 Intake Total 1535 ml 200 ml Output Total 1450 ml 350 ml Balance 85 ml -150 ml Intake Oral 480 ml IV Total 1055 ml 200 ml Output Urine Total 950 ml 350 ml Drainage Total 500 ml # Voids 2 # Bowel Movements 4 Physical Exam CONSTITUTIONAL/GENERAL: Well-nourished female, in no distress TUBES/LINES/DRAINS: Peripheral IV upper extremity. Nasal cannula, Rebolledo catheter SKIN: No jaundice, rashes, or lesions. No wounds seen anteriorly. Skin warm/dry CARDIOVASCULAR: Regular rate and rhythm without murmur. No JVD. Peripheral pulses symmetric. RESPIRATORY/CHEST: Symmetric, unlabored respirations, mildly tachypneic at times. scattered rhonchi. Breath sounds equal bilaterally. On nasal cannula. GASTROINTESTINAL: Abdomen soft, mildly tender, +distended. No hepato- splenomegaly, or palpable masses. + guarding. Bowel sounds hypoactive. GENITOURINARY: Without palpable bladder distension. Rebolledo catheter in place. MUSCULOSKELETAL: Extremities without clubbing, cyanosis. Trace pedal edema. + Edema right upper extremity. + Tenderness to entire lower legs even to light touch patient unable to further qualify. Trace edema otherwise no apparent NEUROLOGICAL: Awake . Appears oriented to self, son, prior residence in [place]. Confused to hospitalization. Limited verbalization primarily yes /no and occasional few other words. Does not consistently follow commands. Left upper extremity rigid, contracted. Right upper extremity with generalized weak movement. Does not move lower extremities to command. PSYCHIATRIC: Calm no apparent anxiety Diagnostic Tests Laboratory Laboratory Tests Test 11/10/17 06:10 11/10/17 06:20 11/11/17 06:20 11/12/17 04:28 White Blood Count 18.2 TH/MM3 (4.0-11.0) 14.6 TH/MM3 (4.0-11.0) 16.5 TH/MM3 (4.0-11.0) Red Blood Count 3.07 MIL/MM3 (4.00-5.30) 3.17 MIL/MM3 (4.00-5.30) 3.44 MIL/MM3 (4.00-5.30) Hemoglobin 7.7 GM/DL (11.6-15.3) 8.4 GM/DL (11.6-15.3) 8.9 GM/DL (11.6-15.3) Hematocrit 24.9 % (35.0-46.0) 25.6 % (35.0-46.0) 28.0 % (35.0-46.0) Mean Corpuscular Volume 81.1 FL (80.0-100.0) 80.9 FL (80.0-100.0) 81.3 FL (80.0-100.0) Mean Corpuscular Hemoglobin 25.2 PG (27.0-34.0) 26.4 PG (27.0-34.0) 25.8 PG (27.0-34.0) Mean Corpuscular Hemoglobin Concent 31.0 % (32.0-36.0) 32.7 % (32.0-36.0) 31.7 % (32.0-36.0) Red Cell Distribution Width 17.1 % (11.6-17.2) 16.6 % (11.6-17.2) 17.1 % (11.6-17.2) Platelet Count 236 TH/MM3 (150-450) 227 TH/MM3 (150-450) 253 TH/MM3 (150-450) Mean Platelet Volume 9.0 FL (7.0-11.0) 8.8 FL (7.0-11.0) 9.1 FL (7.0-11.0) CBC Comment AUTO DIFF DIFF FINAL DIFF FINAL Differential Total Cells Counted 100 Neutrophils % (Manual) 76 % (16-70) Band Neutrophils % 10 % (0-6) Lymphocytes % 10 % (9-44) Monocytes % 4 % (0-8) Neutrophils # (Manual) 15.7 TH/MM3 (1.8-7.7) Differential Comment FINAL DIFF MANUAL Platelet Estimate NORMAL (NORMAL) Platelet Morphology Comment NORMAL (NORMAL) Keratocytes 1+ (NORMAL) Blood Urea Nitrogen 61 MG/DL (7-18) 56 MG/DL (7-18) 44 MG/DL (7-18) Creatinine 3.97 MG/DL (0.50-1.00) 3.05 MG/DL (0.50-1.00) 2.66 MG/DL (0.50-1.00) Random Glucose 165 MG/DL (74-106) 108 MG/DL (74-106) 105 MG/DL (74-106) Total Protein 7.7 GM/DL (6.4-8.2) 6.9 GM/DL (6.4-8.2) Albumin 2.6 GM/DL (3.4-5.0) 2.2 GM/DL (3.4-5.0) Calcium Level 9.0 MG/DL (8.5-10.1) 8.5 MG/DL (8.5-10.1) 8.5 MG/DL (8.5-10.1) Alkaline Phosphatase 91 U/L (45-117) 75 U/L (45-117) Aspartate Amino Transf (AST/SGOT) 13 U/L (15-37) 11 U/L (15-37) Alanine Aminotransferase (ALT/SGPT) 14 U/L (10-53) 11 U/L (10-53) Total Bilirubin 0.3 MG/DL (0.2-1.0) 0.5 MG/DL (0.2-1.0) Sodium Level 144 MEQ/L (136-145) 149 MEQ/L (136-145) 149 MEQ/L (136-145) Potassium Level 4.1 MEQ/L (3.5-5.1) 3.4 MEQ/L (3.5-5.1) 3.5 MEQ/L (3.5-5.1) Chloride Level 110 MEQ/L (98-107) 116 MEQ/L (98-107) 116 MEQ/L (98-107) Carbon Dioxide Level 23.9 MEQ/L (21.0-32.0) 24.2 MEQ/L (21.0-32.0) 23.0 MEQ/L (21.0-32.0) Anion Gap 10 MEQ/L (5-15) 9 MEQ/L (5-15) 10 MEQ/L (5-15) Estimat Glomerular Filtration Rate 11 ML/MIN (>89) 15 ML/MIN (>89) 18 ML/MIN (>89) Lactic Acid Level 0.9 mmol/L (0.4-2.0) Urine Color LIGHT-RED (YELLW/STRAW) Urine Turbidity CLOUDY (CLEAR) Urine pH 6.0 (5.0-8.5) Urine Specific Rose 1.025 (1.002-1.035) Urine Protein 300 mg/dL (NEG-TRACE) Urine Glucose (UA) NEG mg/dL (NEG) Urine Ketones TRACE mg/dL (NEG) Urine Occult Blood LARGE (NEG) Urine Nitrite NEG (NEG) Urine Bilirubin NEG (NEG) Urine Urobilinogen LESS THAN 2.0 MG/DL (LESS Urine Leukocyte Esterase LARGE (NEG) Urine RBC /hpf (0-3) Urine WBC /hpf (0-5) Urine WBC Clumps MANY (NONE) Urine Bacteria MANY /hpf (NONE) Microscopic Urinalysis Comment CATH-CULTURE IND Neutrophils (%) (Auto) 81.8 % (16.0-70.0) 83.9 % (16.0-70.0) Lymphocytes (%) (Auto) 10.7 % (9.0-44.0) 9.1 % (9.0-44.0) Monocytes (%) (Auto) 4.6 % (0.0-8.0) 4.7 % (0.0-8.0) Eosinophils (%) (Auto) 2.4 % (0.0-4.0) 1.7 % (0.0-4.0) Basophils (%) (Auto) 0.5 % (0.0-2.0) 0.6 % (0.0-2.0) Neutrophils # (Auto) 11.9 TH/MM3 (1.8-7.7) 13.8 TH/MM3 (1.8-7.7) Lymphocytes # (Auto) 1.6 TH/MM3 (1.0-4.8) 1.5 TH/MM3 (1.0-4.8) Monocytes # (Auto) 0.7 TH/MM3 (0-0.9) 0.8 TH/MM3 (0-0.9) Eosinophils # (Auto) 0.3 TH/MM3 (0-0.4) 0.3 TH/MM3 (0-0.4) Basophils # (Auto) 0.1 TH/MM3 (0-0.2) 0.1 TH/MM3 (0-0.2) Result Diagram: 11/12/178 11/12/17 0428 Microbiology Microbiology Date/Time Source Procedure Growth Status 11/10/17 06:15 Blood Peripheral Aerobic Blood Culture - Preliminary NO GROWTH IN 2 DAYS Resulted 11/10/17 06:15 Blood Peripheral Anaerobic Blood Culture - Preliminary NO GROWTH IN 2 DAYS Resulted 11/10/17 06:10 Blood Peripheral Aerobic Blood Culture - Preliminary NO GROWTH IN 2 DAYS Resulted 11/10/17 06:10 Blood Peripheral Anaerobic Blood Culture - Preliminary NO GROWTH IN 2 DAYS Resulted 11/10/17 06:20 Urine Catheterized Urine Urine Culture - Preliminary Pseudomonas Aeruginosa Multi-Drug Resistant Gram Negative Chapo Group D Enterococcus Resulted Imaging Last Impressions Chest X-Ray 11/10/17 0601 Signed Impressions: Service Date/Time: Friday, November 10, 2017 06:17 - CONCLUSION: No acute disease. Rosales Jay MD Abdomen/Pelvis CT 11/10/17 0601 Signed Impressions: Service Date/Time: Friday, November 10, 2017 07:44 - CONCLUSION: 1.Focal abnormal circumferential wall thickening involving the descending colon at the level of the hepatic flexure with significant adjacent fluid tracking within the right paracardiac color. Given the extensive atherosclerosis and focal finding concern is for possible infarct. Infection is also within the differential diagnosis. 2. Interval placement of a right-sided percutaneous nephrostomy tube. Stable appearance of the right kidney with multiple renal stones. Josefa Hair MD Head CT 11/10/17 0000 Signed Impressions: Service Date/Time: Friday, November 10, 2017 11:22 - CONCLUSION: Stable exam. No acute abnormality.. Josefa Hair MD Assessment and Plan Disease Oriented Problem List: (1) Anemia (2) Hematuria (3) Acute kidney injury (4) ESBL (extended spectrum beta-lactamase) producing bacteria infection (5) Atrial fibrillation (6) CAD (coronary artery disease) (7) Schizophrenia (8) Dyslipidemia (9) UTI (urinary tract infection) (10) Hydronephrosis (11) Severe sepsis with acute organ dysfunction (12) right MCA stroke 2013, with left hemiparesis (13) hypertension (14) history of decubiti (15) chronic kidney disease (16) coronary artery disease, history of stents (17) dislodging of nephrostomy tube, replaced 07/17/17 Symptom Scale: (1) Confusion 0-10 Scale: Unable to quantify (2) Dyspnea 0-10 Scale: Unable to quantify (3) pain 0-10 Scale: Unable to quantify (4) Dysphagia 0-10 Scale: Unable to quantify Pertinent Non-Medical Issues Psychosocial: Spiritual: Legal:Patient confused baseline, does not appear to have capacity to make medical decisions does not appear she will regain capacity. Her son is designated as healthcare surrogate on document dated 2012. They have not been able to reach him this admission for consent, of note palliative care was consulted on this patient in July 2017 and at that time there was no answer or voicemail on my multiple attempts. Her review further of old records in May 2017 case management requested wellness checks at patient's son possible address, this person did not live there. Apparently at some point in 2014 the son was incarcerated per CM notes. Not clear his location at this time , per palliative psychologist social review of [employer] record search 10/16/17 appears a Dev Wilson was arrested through [employer] system however he was not incarcerated was released-- not clear if this person is related to pt. Will request ACCURINT search to identify possible decision makers. 11/11/17 palliative psychologist social reviewed findings of accurint report and social network search--able to locate and initiate contact through Son's girlfriend number, son is actually DANIELA Wilson [phone] Ethical issues impacting care: none identified Important Contacts SON/HCS Daniela Wilson [phone] NOT Dev Wilson [phone], [phone]-->this # is NOT anyone related to pt . Prognosis This patient has multiple chronic medical conditions. She has been debilitated and lives in a fpc long-term. Due to these multiple conditions, she will likely continue to have ongoing complications, setbacks and recurrent hospitalizations. . Code Status: Full Code Plan * Legal decision maker:Patient confused baseline, does not appear to have capacity to make medical decisions does not appear she will regain capacity. Her son is designated as healthcare surrogate on document dated 2012. They have not been able to reach him this admission for consent, of note palliative care was consulted on this patient in July 2017 and at that time there was no answer or voicemail on my multiple attempts. Her review further of old records in May 2017 case management requested wellness checks at patient's son possible address, this person did not live there. Apparently at some point in 2014 the son was incarcerated per CM notes. Not clear his location at this time, per palliative psychologist social review of [employer] record search 10/16/17 appears a Dev Wilson was arrested through [employer] system however he was not incarcerated was released-- not clear if this person is related to pt. Will request ACCURINT search to identify possible decision makers. 11/11/17 palliative psychologist social reviewed findings of accurint report and social network search--able to locate and initiate contact through Son's girlfriend number, son is actually DANIELA Wilson [phone] * Goals: Aggressive for now, cont available treatments, including full code. attempted to reach son again today 11/12 to discuss conditions, goals voicemail left. Nursing spoke with him earlier via phone and reported that he indicated he would proceed with feeding tube if indicated. * CODE STATUS: full code * SYMPTOMS: --Encephalopathy-patient status post CVA likely with some residual cognitive deficits. Also with long psychiatric history per records. May be baseline status? --Dyspnea-EMS activated for respiratory distress, low O2 sats. CXR no acute process. Tolerating nasal cannula currently.+ Some upper airway rhonchi but no apparent respiratory distress, will continue to evaluate --Pain-patient appears very tender/painful with minimal touch and exam to both lower extremities. Unable to determine specific location or quality of pain she begins moaning with any type of exam to lower extremities. No obvious erythema or edema. Trace pedal edema. Bilateral foot drop. ? Etiology chronic immobility/bedbound status. It is noted she is on gabapentin 100 mg twice daily, may have some neuropathic pain.consider uptitration. May require additional analgesics if pain persists/worsens , though difficult to further assess/quantify, will continue to evaluate. Appears comfortable when at rest and lower extremities are not disturbed. per d/w son pt w chronic pain to BLE since bedbound. May consider tylenol prn, cautious use of opiates. Patient today able to verbalize pain to her legs. She is unable to quantify or qualify but says they always hurt. Her son confirmed this during discussion with him yesterday, he indicated she had been having some lower extremity of pain since becoming immobile and bedbound. -- dysphagia- s/p multiple CVAs. Appears has had some degree of ongoing chronic dysphagia 2/2 to, with diet modifications in place. May be worsened this admission 2/2 to acute infectious process?, or progressive debility/ weakness, rec. ST cont to follow as swallowing ability may again improve to baseline, or she may require bypass feeding via PEG. NGT in place currently, medical administrative technician has made TF recommendations. During May 2017 evaluation patient was tolerating pured diet with nectar thickened liquids * Palliative care will continue to follow during hospital course as condition evolves, to assist patient/decision-maker with understanding of medical conditions, weighing benefits/burdens of treatment options, for clarification of goals of treatment. Additionally will assist with any symptoms of palliative concern . Time Spent Total Floor Time (mins): 25 (Chart review, PE, discussion with nursing, attempted call to family ) Attestation To help prompt me to consider important information that might be impacting today's encounter and assessment, information from prior notes written by myself or my colleagues may have been "brought forward" into today's note. My signature on this note, however, is an attestation that I personally performed the exam, history, and/or decision-making noted today, and, unless otherwise indicated, the interactions with patient, family, and staff as well as the review of records all occurred today. I also attest that the listed assessment and stated plan reflect my best clinical judgment today based on the combination of historical information, prior notes, and today's exam/ interactions. When time spent is documented, it refers only to time spent today by the signer, or if indicated, combined time spent today by collaborating physician/nurse practitioner. Emperatriz Morales November 12, 2017 14:54
[2017-11-12] MEDS: ATORVASTATIN 40 MG TAB PO SCH (20:31)
[2017-11-13] VITALS (13 sets, daily range): BP systolic 143–185; BP diastolic 72–88; PULSE 56–96; RESP 12–25; TEMP 97.8–100.3; O2SAT 94–100
[2017-11-13] MEDS: metroNIDAZOLE 500 MG INJ 100 ML IV SCH ×4 (00:54→18:23)
[2017-11-13] MEDS: PIPERACIL-TAZO 2.25 GM PREMIX 50 ML IV SCH ×3 (05:03→22:34)
[2017-11-13] MEDS: oxyCODONE/ACETAMINOPHEN 5 MG/325 MG TAB PO PRN ×2 (05:04→13:48)
[2017-11-13] MEDS: SODIUM CHLOR 0.45% 1000 ML INJ 1,000 ML IV SCH (05:53)
[2017-11-13] MEDS: SODIUM CHLORIDE 0.9% FLUSH 10 ML FLUSH IV FLUSH SCH ×2 (07:43→22:32)
[2017-11-13 08:35] LABS: BICARBONATE 25.1 MEQ/L (21.0-32.0); CALCIUM 8.4 MG/DL (8.5-10.1); CREATININE 2.14 MG/DL (0.50-1.00)
[2017-11-13] MEDS: GABAPENTIN 100 MG CAP PO SCH ×2 (08:50→22:33)
[2017-11-13] MEDS: METOPROLOL TARTRATE 25 MG TAB PO SCH ×2 (08:50→21:00)
[2017-11-13] MEDS: risperiDONE 0.5 MG TAB PO SCH ×3 (08:50→18:00)
[2017-11-13] MEDS: ASPIRIN EC 81 MG TABEC PO SCH (08:50)
[2017-11-13] MEDS: SERTRALINE HCL 50 MG TAB PO SCH (08:50)
--- NOTE | 2017-11-13 11:12 | HHI.GIFU ---
Subjective Remarks Pt resting in bed, in restraints. TF running via NGT 20ml/hr. (Mayra Avery) Objective Vitals I&O Vital Signs Date Time Temp Pulse Resp B/P (MAP) Pulse Ox O2 Delivery O2 Flow Rate FiO2 11/13/17 08:00 99.1 69 16 163/76 (105) 100 11/13/17 04:07 58 11/13/17 04:00 Nasal Cannula 2.00 11/13/17 04:00 97.8 64 22 165/75 (105) 98 11/13/17 00:17 70 11/13/17 00:00 98.2 65 20 174/72 (106) 98 11/13/17 00:00 Nasal Cannula 2.00 11/12/17 20:36 98.0 68 20 180/79 (112) 98 11/12/17 20:36 Nasal Cannula 2.00 11/12/17 20:05 58 11/12/17 16:00 97.3 67 19 137/60 (85) 98 11/12/17 16:00 71 11/12/17 12:08 62 11/12/17 12:00 98.5 81 19 160/75 (103) 99 11/12/17 12:00 70 I/O 11/12/17 11/12/17 11/12/17 11/13/17 11/13/17 11/13/17 07:00 15:00 23:00 07:00 15:00 23:00 Intake Total 1435 ml 300 ml 250 ml 957 ml Output Total 1450 ml 350 ml 950 ml 950 ml Balance -15 ml -50 ml -700 ml 7 ml Intake Oral 480 ml 0 ml IV Total 955 ml 300 ml 250 ml 805 ml Tube Feeding 92 ml Other 60 ml Output Urine Total 950 ml 350 ml 950 ml 800 ml Drainage Total 500 ml 150 ml # Voids 2 # Bowel Movements 4 0 Laboratory Laboratory Tests Test 11/13/17 07:10 Blood Urea Nitrogen 37 Creatinine 2.14 Random Glucose 116 Calcium Level 8.4 Sodium Level 150 Potassium Level 3.0 Chloride Level 116 Carbon Dioxide Level 25.1 Anion Gap 9 Estimat Glomerular Filtration Rate 23 Date/Time Source Procedure Growth Status 11/10/17 06:15 Blood Peripheral Aerobic Blood Culture - Preliminary NO GROWTH IN 3 DAYS Resulted 11/10/17 06:15 Blood Peripheral Anaerobic Blood Culture - Preliminary NO GROWTH IN 3 DAYS Resulted 11/10/17 06:20 Urine Catheterized Urine Urine Culture - Preliminary Pseudomonas Aeruginosa Multi-Drug Resistant Escherichia Coli Esbl Positive Group D Enterococcus Resulted Imaging Last Impressions Chest X-Ray 11/10/17600 Signed Impressions: Service Date/Time: Friday, November 10, 2017 06:17 - CONCLUSION: No acute disease. Rosales Jay MD Abdomen/Pelvis CT 11/10/17600 Signed Impressions: Service Date/Time: Friday, November 10, 2017 07:44 - CONCLUSION: 1.Focal abnormal circumferential wall thickening involving the descending colon at the level of the hepatic flexure with significant adjacent fluid tracking within the right paracardiac color. Given the extensive atherosclerosis and focal finding concern is for possible infarct. Infection is also within the differential diagnosis. 2. Interval placement of a right-sided percutaneous nephrostomy tube. Stable appearance of the right kidney with multiple renal stones. Josefa Hair MD Head CT 11/10/17 0000 Signed Impressions: Service Date/Time: Friday, November 10, 2017 11:22 - CONCLUSION: Stable exam. No acute abnormality.. Josefa Hair MD Physical Exam HEENT: PERRL; normocephalic; atraumatic; no jaundice. NGT CHEST: rhonchi CARDIAC: RRR ABDOMEN: soft, distended, nontender; no hepatosplenomegaly; bowel sounds are present in all four quadrants. EXTREMITIES: No clubbing, cyanosis, or edema. +restraints SKIN: Normal; no rash; no jaundice. BIOINFORMATICS ASSISTANT: mildly agitated, oriented to self (Mayra Avery CABIN CLEANING SUPERVISOR) Assessment and Plan Plan Assessment: - Colitis- infectious vs ischemic- unable to obtain history from patient CT abdomen and pelvis W/O IV contrast (11/10) --> Focal abnormal circumferential wall thickening involving the descending colon at the level of the hepatic flexure with significant adjacent fluid tracking within the right paracardiac color. Given the extensive atherosclerosis and focal finding concern is for possible infarct. Infection is also within the differential diagnosis. Interval placement of a right-sided percutaneous nephrostomy tube. Stable appearance of the right kidney with multiple renal stones. Febrile with leukocytosis C diff stool ordered by GS, pt started on IV Flagyl and Zosyn - Anemia, microcytic, hypochromic- hgb 10 in 11/11/17 pulled out NGT before completing prep. agitated somewhat. Son has not been reached for consents. RN unable to reach. I tried this morning 1100 and there is no answer or voicemail. d/w primary, they will attempt to reinsert NGT this afternoon and do prep for colonoscopy. If unsuccessful placing NGT , can do EGD to place and colonoscopy following day? had BM yesterday, reportedly hard and pebbly 11/13/17 s/p colonoscopy with poor prep, found severe diverticulosis. failed swallow eval, NPo per FRIED CAKE MAKER. TF running 20ml/hr. has UTI, hematuria Plan: await bx cont TF cont speech therapy, if continue to fail may need PEG await palliative care follow up Pt has been seen and examined by myself and and myself (Mayra Avery) Physician Comments seen, examined agree with above edema of legs up to tights possible ct finding related to recent urological procedure anemia -consider egd, if no improvement in po intake may need peg tsh iron, vit b12, ferritin abdominal us with mesenteric vessel eval for mesenteric ischemia (Maura Donahue MD) Mayra Avery November 13, 2017 11:12 Maura Donahue MD November 13, 2017 14:36
--- NOTE | 2017-11-13 15:45 | HHI.HCPN ---
Reason for visit a. To assist with evaluation and management of symptoms including: dysphagia ,dyspnea, pain b. To assist medical decision maker(s) with: better understanding of current medical conditions; weighing benefits/burdens of medical treatment options; making medical treatment decisions. Subjective/Interval History *Palliative care reconsulted 11/12/17 by medical attending, palliative care already involved/ actively following this patient. Pt seen today to follow up on comfort/goals. S/p colonoscopy per GI: +findings Severe diverticulosis sigmoid,descending colon. + Hemorrhoids. Biopsy obtained , pathology pending. General surgery signed off no need for surgical intervention. Renal function continues to slowly improve BUN 37/creatinine 2.14. ST following, recommends NPO --patient still demonstrating aspiration. Recommends bypass feedings for now. Ongoing ST evaluation. Known history of dysphasia and dysarthria and prior barium swallow studies. During May 2017 evaluation patient was tolerating pured diet with nectar thickened liquids. Patient seen in room no visitors present. She is alert appears oriented to self ,and son. She answers with 1 or 2 words only, primarily yes or no answers. She denies shortness of breath. When asked about pain she indicates her legs still hurt though they might be a little better. She complains of a headache. Explain NG tube in place explore rationale, attempt to explore if she recalls having a PEG tube in the past she does not answer any of these questions. Following exam call to cong [facility], voicemail left. Also discussed with primary nurse regarding headache, she indicates she just gave patient a Percocet. . Advance Directives Health Care Surrogate: Copy in medical record Advance Directive Specifics Date completed: 03/2013 Health Care Surrogate(s): Cong Wilson--this was misspelled by person completing form son's name is Daniela Objective Vital Signs Date Time Temp Pulse Resp B/P (MAP) Pulse Ox O2 Delivery O2 Flow Rate FiO2 11/13/17 12:00 98.2 69 16 160/73 (102) 98 11/13/17 11:37 97 Nasal Cannula 2.00 11/13/17 08:00 99.1 69 16 163/76 (105) 100 11/13/17 04:07 58 11/13/17 04:00 Nasal Cannula 2.00 11/13/17 04:00 97.8 64 22 165/75 (105) 98 11/13/17 00:17 70 11/13/17 00:00 98.2 65 20 174/72 (106) 98 11/13/17 00:00 Nasal Cannula 2.00 11/12/17 20:36 98.0 68 20 180/79 (112) 98 11/12/17 20:36 Nasal Cannula 2.00 11/12/17 20:05 58 11/12/17 16:00 97.3 67 19 137/60 (85) 98 11/12/17 16:00 71 Intake & Output 11/13/17 11/13/17 07:00 19:00 Intake Total 1107 ml Output Total 950 ml Balance 157 ml Intake Oral 0 ml IV Total 955 ml Tube Feeding 92 ml Other 60 ml Output Urine Total 800 ml Drainage Total 150 ml # Bowel Movements 0 Physical Exam CONSTITUTIONAL/GENERAL: Well-nourished female, in no distress TUBES/LINES/DRAINS: Peripheral IV upper extremity. NG tube. Nasal cannula, Rebolledo catheter SKIN: No jaundice, rashes, or lesions. No wounds seen anteriorly. Skin warm/dry CARDIOVASCULAR: Regular rate and rhythm without murmur. No JVD. Peripheral pulses symmetric. RESPIRATORY/CHEST: Symmetric, unlabored respirations, scattered rhonchi. Breath sounds equal bilaterally. On nasal cannula. GASTROINTESTINAL: Abdomen soft, nontender, nondistended. No hepato-splenomegaly , or palpable masses. Bowel sounds hypoactive. GENITOURINARY: Without palpable bladder distension. Rebolledo catheter in place. MUSCULOSKELETAL: Extremities without clubbing, cyanosis. Trace pedal edema. + Edema right upper extremity. + Tenderness to entire lower legs even to light touch patient unable to further qualify. Trace edema otherwise no apparent NEUROLOGICAL: Awake .oriented to self, son. Confused to hospitalization. Limited verbalization primarily yes/no and occasional few other words. Follows some simple commands. Left upper extremity rigid, contracted. Right upper extremity with generalized weak movement. Does not move lower extremities to command. PSYCHIATRIC: Calm no apparent anxiety Diagnostic Tests Laboratory Laboratory Tests Test 11/11/17 06:20 11/12/17 04:28 11/13/17 07:10 White Blood Count 14.6 TH/MM3 (4.0-11.0) 16.5 TH/MM3 (4.0-11.0) Red Blood Count 3.17 MIL/MM3 (4.00-5.30) 3.44 MIL/MM3 (4.00-5.30) Hemoglobin 8.4 GM/DL (11.6-15.3) 8.9 GM/DL (11.6-15.3) Hematocrit 25.6 % (35.0-46.0) 28.0 % (35.0-46.0) Mean Corpuscular Volume 80.9 FL (80.0-100.0) 81.3 FL (80.0-100.0) Mean Corpuscular Hemoglobin 26.4 PG (27.0-34.0) 25.8 PG (27.0-34.0) Mean Corpuscular Hemoglobin Concent 32.7 % (32.0-36.0) 31.7 % (32.0-36.0) Red Cell Distribution Width 16.6 % (11.6-17.2) 17.1 % (11.6-17.2) Platelet Count 227 TH/MM3 (150-450) 253 TH/MM3 (150-450) Mean Platelet Volume 8.8 FL (7.0-11.0) 9.1 FL (7.0-11.0) Neutrophils (%) (Auto) 81.8 % (16.0-70.0) 83.9 % (16.0-70.0) Lymphocytes (%) (Auto) 10.7 % (9.0-44.0) 9.1 % (9.0-44.0) Monocytes (%) (Auto) 4.6 % (0.0-8.0) 4.7 % (0.0-8.0) Eosinophils (%) (Auto) 2.4 % (0.0-4.0) 1.7 % (0.0-4.0) Basophils (%) (Auto) 0.5 % (0.0-2.0) 0.6 % (0.0-2.0) Neutrophils # (Auto) 11.9 TH/MM3 (1.8-7.7) 13.8 TH/MM3 (1.8-7.7) Lymphocytes # (Auto) 1.6 TH/MM3 (1.0-4.8) 1.5 TH/MM3 (1.0-4.8) Monocytes # (Auto) 0.7 TH/MM3 (0-0.9) 0.8 TH/MM3 (0-0.9) Eosinophils # (Auto) 0.3 TH/MM3 (0-0.4) 0.3 TH/MM3 (0-0.4) Basophils # (Auto) 0.1 TH/MM3 (0-0.2) 0.1 TH/MM3 (0-0.2) CBC Comment DIFF FINAL DIFF FINAL Differential Comment Blood Urea Nitrogen 56 MG/DL (7-18) 44 MG/DL (7-18) 37 MG/DL (7-18) Creatinine 3.05 MG/DL (0.50-1.00) 2.66 MG/DL (0.50-1.00) 2.14 MG/DL (0.50-1.00) Random Glucose 108 MG/DL (74-106) 105 MG/DL (74-106) 116 MG/DL (74-106) Total Protein 6.9 GM/DL (6.4-8.2) Albumin 2.2 GM/DL (3.4-5.0) Calcium Level 8.5 MG/DL (8.5-10.1) 8.5 MG/DL (8.5-10.1) 8.4 MG/DL (8.5-10.1) Alkaline Phosphatase 75 U/L (45-117) Aspartate Amino Transf (AST/SGOT) 11 U/L (15-37) Alanine Aminotransferase (ALT/SGPT) 11 U/L (10-53) Total Bilirubin 0.5 MG/DL (0.2-1.0) Sodium Level 149 MEQ/L (136-145) 149 MEQ/L (136-145) 150 MEQ/L (136-145) Potassium Level 3.4 MEQ/L (3.5-5.1) 3.5 MEQ/L (3.5-5.1) 3.0 MEQ/L (3.5-5.1) Chloride Level 116 MEQ/L (98-107) 116 MEQ/L (98-107) 116 MEQ/L (98-107) Carbon Dioxide Level 24.2 MEQ/L (21.0-32.0) 23.0 MEQ/L (21.0-32.0) 25.1 MEQ/L (21.0-32.0) Anion Gap 9 MEQ/L (5-15) 10 MEQ/L (5-15) 9 MEQ/L (5-15) Estimat Glomerular Filtration Rate 15 ML/MIN (>89) 18 ML/MIN (>89) 23 ML/MIN (>89) Result Diagram: 11/12/17 0428 11/13/17 0710 Imaging Last Impressions Chest X-Ray 11/10/17 0601 Signed Impressions: Service Date/Time: Friday, November 10, 2017 06:17 - CONCLUSION: No acute disease. Rosales Jay MD Abdomen/Pelvis CT 11/10/17 0601 Signed Impressions: Service Date/Time: Friday, November 10, 2017 07:44 - CONCLUSION: 1.Focal abnormal circumferential wall thickening involving the descending colon at the level of the hepatic flexure with significant adjacent fluid tracking within the right paracardiac color. Given the extensive atherosclerosis and focal finding concern is for possible infarct. Infection is also within the differential diagnosis. 2. Interval placement of a right-sided percutaneous nephrostomy tube. Stable appearance of the right kidney with multiple renal stones. Josfea Hair MD Head CT 11/10/17 0000 Signed Impressions: Service Date/Time: Friday, November 10, 2017 11:22 - CONCLUSION: Stable exam. No acute abnormality.. Josefa Hair MD Assessment and Plan Disease Oriented Problem List: (1) Anemia (2) Hematuria (3) Acute kidney injury (4) ESBL (extended spectrum beta-lactamase) producing bacteria infection (5) Atrial fibrillation (6) CAD (coronary artery disease) (7) Schizophrenia (8) Dyslipidemia (9) UTI (urinary tract infection) (10) Hydronephrosis (11) Severe sepsis with acute organ dysfunction (12) right MCA stroke 2013, with left hemiparesis (13) hypertension (14) history of decubiti (15) chronic kidney disease (16) coronary artery disease, history of stents (17) dislodging of nephrostomy tube, replaced 07/17/17 Symptom Scale: (1) Confusion 0-10 Scale: Unable to quantify (2) Dyspnea 0-10 Scale: Unable to quantify (3) pain 0-10 Scale: Unable to quantify (4) Dysphagia 0-10 Scale: Unable to quantify Pertinent Non-Medical Issues Psychosocial: Spiritual: Legal:Patient confused baseline, does not appear to have capacity to make medical decisions does not appear she will regain capacity. Her son is designated as healthcare surrogate on document dated 2012. They have not been able to reach him this admission for consent, of note palliative care was consulted on this patient in July 2017 and at that time there was no answer or voicemail on my multiple attempts. Her review further of old records in May 2017 case management requested wellness checks at patient's son possible address, this person did not live there. Apparently at some point in 2014 the son was incarcerated per CM notes. Not clear his location at this time , per palliative child welfare social worker review of [employer] record search 10/16/17 appears luana Wilson was arrested through [employer] however he was not incarcerated was released-- not clear if this person is related to pt. Will request [employer] search to identify possible decision makers. 11/11/17 palliative child welfare social worker reviewed findings of accurint report and social network search--able to locate and initiate contact through Son's girlfriend number, son is actually DANIELA Wilson [phone] Ethical issues impacting care: none identified Important Contacts SON/HCS Daniela Wilson [phone] NOT Dev Wilson [phone], [phone]-->this # is NOT anyone related to pt . Prognosis This patient has multiple chronic medical conditions. She has been debilitated and lives in a skilled nursing long-term. Due to these multiple conditions, she will likely continue to have ongoing complications, setbacks and recurrent hospitalizations. . Code Status: Full Code Plan * Legal decision maker:Patient confused baseline, does not appear to have capacity to make medical decisions does not appear she will regain capacity. Her son is designated as healthcare surrogate on document dated 2012. They have not been able to reach him this admission for consent, of note palliative care was consulted on this patient in July 2017 and at that time there was no answer or voicemail on my multiple attempts. Her review further of old records in May 2017 case management requested wellness checks at patient's son possible address, this person did not live there. Apparently at some point in 2014 the son was incarcerated per CM notes. Not clear his location at this time, per palliative child welfare social worker review of [employer] record search 10/16/17 appears luana Wilson was arrested through [employer] however he was not incarcerated was released-- not clear if this person is related to pt. Will request [employer] search to identify possible decision makers. 11/11/17 palliative child welfare social worker reviewed findings of accurint report and social network search--able to locate and initiate contact through Son's girlfriend number, son is actually DANIELA Wilson [phone] * Goals: Aggressive for now, cont available treatments, including full code. attempted to reach son again today 11/12 to discuss conditions, goals voicemail left. Nursing spoke with him earlier via phone and reported that he indicated he would proceed with feeding tube if indicated. * 11/13 voicemail left for son again * CODE STATUS: full code * SYMPTOMS: --Encephalopathy-patient status post CVA likely with some residual cognitive deficits. Also with long psychiatric history per records. May be baseline status? --Dyspnea-EMS activated for respiratory distress, low O2 sats. CXR no acute process. Tolerating nasal cannula currently.+ Some upper airway rhonchi but no apparent respiratory distress, will continue to evaluate --Pain-patient appears very tender/painful with minimal touch and exam to both lower extremities. Unable to determine specific location or quality of pain she begins moaning with any type of exam to lower extremities. No obvious erythema or edema. Trace pedal edema. Bilateral foot drop. ? Etiology chronic immobility/bedbound status. It is noted she is on gabapentin 100 mg twice daily, may have some neuropathic pain.consider uptitration. May require additional analgesics if pain persists/worsens , though difficult to further assess/quantify, will continue to evaluate. Appears comfortable when at rest and lower extremities are not disturbed. per d/w son pt w chronic pain to BLE since bedbound. May consider tylenol prn, cautious use of opiates. Patient today able to verbalize pain to her legs. She is unable to quantify or qualify but says they always hurt. Her son confirmed this during discussion with him , he indicated she had been having some lower extremity of pain since becoming immobile and bedbound. today c/o headache, nurse provided PRN -- dysphagia- s/p multiple CVAs. Appears has had some degree of ongoing chronic dysphagia 2/2 to, with diet modifications in place. May be worsened this admission 2/2 to acute infectious process?, or progressive debility/ weakness, rec. ST cont to follow as swallowing ability may again improve to baseline, or she may require bypass feeding via PEG. NGT in place currently, architecture manager has made TF recommendations. During May 2017 evaluation patient was tolerating pured diet with nectar thickened liquids * Palliative care will continue to follow during hospital course as condition evolves, to assist patient/decision-maker with understanding of medical conditions, weighing benefits/burdens of treatment options, for clarification of goals of treatment. Additionally will assist with any symptoms of palliative concern . Time Spent Total Floor Time (mins): 20 (chart review, PE, d/w nursing) Attestation To help prompt me to consider important information that might be impacting today's encounter and assessment, information from prior notes written by myself or my colleagues may have been "brought forward" into today's note. My signature on this note, however, is an attestation that I personally performed the exam, history, and/or decision-making noted today, and, unless otherwise indicated, the interactions with patient, family, and staff as well as the review of records all occurred today. I also attest that the listed assessment and stated plan reflect my best clinical judgment today based on the combination of historical information, prior notes, and today's exam/ interactions. When time spent is documented, it refers only to time spent today by the signer, or if indicated, combined time spent today by collaborating physician/nurse practitioner. Emperatriz Morlaes November 13, 2017 15:45
[2017-11-13 16:35] LABS: IRON (FE) 13 MCG/DL (50-170)
[2017-11-13] MEDS ORDERED: FUROSEMIDE 40 MG/4 ML VIAL ONE (16:41)
[2017-11-13] MEDS ORDERED: methylPREDNISolone SOD SUCC 125 MG/2 ML VIAL IV PUSH ONE (16:45)
[2017-11-13] MEDS ORDERED: FUROSEMIDE 40 MG/4 ML VIAL IV PUSH ONE (16:45)
[2017-11-13 17:01] LABS: % SATURATION IRON PROFILE 8.4 % (20-50); FERRITIN 328 NG/ML (8-252); TOTAL IRON BINDING CAPACITY 155 MCG/DL (250-450)
--- NOTE | 2017-11-13 17:10 | RADRPT ---
EXAM DATE/TIME: 11/13/2017 16:42 [facility] COMPARISON: CHEST SINGLE AP, November 10, 2017, 6:17. INDICATIONS : Difficulty breathing. Halicat code. MEDICAL HISTORY : Cerebrovascular disease. AFIB SURGICAL HISTORY : Hysterectomy. ENCOUNTER: Subsequent ACUITY: 1 day PAIN SCORE: 0/10 LOCATION: Bilateral chest FINDINGS: A single view of the chest demonstrates the lungs to be symmetrically aerated without evidence of mas s, infiltrate or effusion. Nasogastric tube across the GE junction. Mild cardiomegaly. Osseous str uctures are intact. CONCLUSION: Mild compensated cardiomegaly otherwise negative Gamal Zamudio MD FACR on November 13, 2017 at 17:07 Board Certified Radiologist. This report was verified electronically.
[2017-11-13 17:11] LABS: FOLATE GREATER THAN 20.0 NG/ML (3.1-17.5)
--- NOTE | 2017-11-13 17:21 | PD.CONS ---
[facility] Service Critical Care Medicine Consult Requested By Dr. Louis Reason for Consult acute respiratory failure Primary Care Physician Nii Stone M.D. History of Present Illness This is a 62yF with history of stroke and admitted for acute colitis and multi- organism UTI. She has a history of dysphagia and was currently NPO on tube feeding. Today she had sudden onset of acute hypoxia with spo2 82% on nc o2. she was placed on NRB. She has noted ronchi bilaterally. she has significant edema and grossly appears volume overloaded. she was admitted with Cr >3 and has been gently diuresed and SIMBA is slowly improving. rapid response was called and she was emergently transferred to the ICU. due to her current mental status (and reported baseline mental status), no additional information is obtainable from the patient, and she only moans. ABG demonstrates severe respiratory acidosis. I attempted to contact her son and medical decision maker but was unable to reach him. Palliative care is following and has also not been able to reach him today. ROS unobtainable. Review of Systems ROS Limitations: Clinical Condition, Altered Mental Status Past Family Social History Allergies: Coded Allergies: *MDRO Multi-Drug Resistant Organism (Verified Adverse Reaction, Unknown, ) 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 ESBL + E. 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 Past Medical History unobtainable due to the medical condition of the patient. Please refer to Dr. Jackson's H&P from 11/10 for additional information. Per medical record review: Hypertension Hyperlipidemia Diabetes CAD Atrial fibrillation on Xarelto. This was stopped on June 09, 2017 hospital admission due to hematuria CVA with left-sided hemiparesis History of carotid artery stenosis History of sepsis History of renal stones History of ESBL infection/VRE/MRSA Decubitus ulcer on heel and sacral area chronic Osteoarthritis Schizophrenia/bipolar disorder Past Surgical History unobtainable due to mental status. per medical record review: Coronary angiogram with stenting in RCA and LAD Hysterectomy Tonsillectomy Left hip ORIF Urinary stent Nephrostomy tube placements Dental extractions Reported Medications Percocet (Oxycodone-Acetaminophen) 5-325 mg Tab 1-2 Tab PO Q6H PRN Milk of Magnesia Liq (Magnesium Hydroxide) 400 Mg/5 Ml Susp 30 Ml PO DAILY PRN Maalox Maximum Strength Susp (Mag Hydrox/Aluminum Hyd/Simeth) 400 Mg-400 Mg-40 Mg/5 Ml Oral.susp Glytrol (Nut.tx.gluc.intoler,Lac-Fr,Soy) 1,000 Ml Liquid 3 Can PO DAILY Tylenol (Acetaminophen) 325 Mg Tab 650 Mg PO Q6H PRN Hydralazine HCl 50 Mg Tablet 50 Mg PO TID Bisacodyl Supp (Bisacodyl) 10 Mg Supp 10 Mg RECTAL DAILY PRN Gabapentin 100 Mg Cap 100 Mg PO BID Glytrol (Nut.tx.gluc.intoler,Lac-Fr,Soy) 1,000 Ml Liquid 60 Ml PO TID Levemir Inj (Insulin Detemir) 1,000 unit/ 10 ML Vial 7 Units SQ HS Do not mix with any other Insulin. Thera M Plus (Multivitamins/Minerals Therapeutic) 1 Tab 1 Tab PO DAILY Sertraline (Sertraline HCl) 50 Mg Tab 50 Mg PO DAILY Senna-Tabs (Sennosides) 8.6 Mg Tab 8.6 Mg PO BID Risperidone 0.5 Mg Tab 0.5 Mg PO TID Omeprazole 20 Mg Tab 20 Mg PO DAILY Metoprolol Tartrate 25 Mg Tab 25 Mg PO BID Active Ordered Medications See MAR Family History unobtainable due to the clinical condition of the patient. Social History unobtainable due to the patient's clinical condition. Physical Exam Vital Signs Vital Signs Date Time Temp Pulse Resp B/P (MAP) Pulse Ox O2 Delivery O2 Flow Rate FiO2 11/13/17 12:00 98.2 69 16 160/73 (102) 98 11/13/17 11:37 97 Nasal Cannula 2.00 11/13/17 08:00 99.1 69 16 163/76 (105) 100 11/13/17 04:07 58 11/13/17 04:00 Nasal Cannula 2.00 11/13/17 04:00 97.8 64 22 165/75 (105) 98 11/13/17 00:17 70 11/13/17 00:00 98.2 65 20 174/72 (106) 98 11/13/17 00:00 Nasal Cannula 2.00 11/12/17 20:36 98.0 68 20 180/79 (112) 98 11/12/17 20:36 Nasal Cannula 2.00 11/12/17 20:05 58 Physical Exam gen: middle-aged female lying in bed, appears older than stated age. in severe respiratory distress. heent: nc. at. perrl. mucous membranes moist. neck: +jvd. trachea midline chest: labored. NRB in place. bilateral ronchi. cv: tachycardic rate, regular rhythm. abd: soft, nontender, nondistended, no guarding. extr: 2+ edema. distal pulses palpable neuro: RASS -2. withdraws to pain. protecting airway. does not follow commands. Laboratory Laboratory Tests Test 11/13/17 07:10 11/13/17 16:12 Blood Urea Nitrogen 37 Creatinine 2.14 Random Glucose 116 Calcium Level 8.4 Sodium Level 150 Potassium Level 3.0 Chloride Level 116 Carbon Dioxide Level 25.1 Anion Gap 9 Estimat Glomerular Filtration Rate 23 Iron Level 13 Blood Gas Puncture Site LT RADIAL Blood Gas Patient Temperature 98.6 Blood Gas HCO3 25 Blood Gas Base Excess -2.9 Blood Gas Oxygen Saturation 92 Arterial Blood pH 7.17 Arterial Blood Partial Pressure CO2 71 Arterial Blood Partial Pressure O2 77 Arterial Blood Oxygen Content 13.3 Arterial Blood Carboxyhemoglobin 1.0 Arterial Blood Methemoglobin 1.1 Blood Gas Hemoglobin 10.2 Blood Gas Liter Flow 4 Date/Time Source Procedure Growth Status 11/10/17 06:15 Blood Peripheral Aerobic Blood Culture - Preliminary NO GROWTH IN 3 DAYS Resulted 11/10/17 06:15 Blood Peripheral Anaerobic Blood Culture - Preliminary NO GROWTH IN 3 DAYS Resulted 11/10/17 06:20 Urine Catheterized Urine Urine Culture - Final Pseudomonas Aeruginosa Multi-Drug Resistant Escherichia Coli Esbl Positive Enterococcus Faecalis Complete Result Diagram: 11/12/17 0428 11/13/17 0710 Imaging Last Impressions Chest X-Ray 11/10/17600 Signed Impressions: Service Date/Time: Friday, November 10, 2017 06:17 - CONCLUSION: No acute disease. Rosales Jay MD Abdomen/Pelvis CT 11/10/17600 Signed Impressions: Service Date/Time: Friday, November 10, 2017 07:44 - CONCLUSION: 1.Focal abnormal circumferential wall thickening involving the descending colon at the level of the hepatic flexure with significant adjacent fluid tracking within the right paracardiac color. Given the extensive atherosclerosis and focal finding concern is for possible infarct. Infection is also within the differential diagnosis. 2. Interval placement of a right-sided percutaneous nephrostomy tube. Stable appearance of the right kidney with multiple renal stones. Josefa Hair MD Head CT 11/10/17 0000 Signed Impressions: Service Date/Time: Friday, November 10, 2017 11:22 - CONCLUSION: Stable exam. No acute abnormality.. Josefa Hair MD Septic Shock Reassessment Septic shock perfusion: reassessment completed Assessment and Plan Assessment and Plan Assessment: 62yF with multiple medical problems and now has acute hypoxic and hypercarbic respiratory failure which is now life-threatening. very critically ill. we will attempt NIPPV as life-support, intubation, and mechanical ventilation may be life-ending for her. Would have low threshold for intubation with history of aspiration. Active Problems: Acute hypoxic and hypercarbic respiratory failure Aspiration pneumonia Acute metabolic encephalopathy Plan: admit to ICU BiPAP wean fio2 for goal spo2 > 90% abg in an hour: if no improvements, will proceed with intubation vent bundle hob elevated patient already on broad spectrum coverage for HCAP aspiration agree with palliative involvement. frequent neuro checks avoid long-acting sedatives d/c opiates. NPO Critical care time: 58 minutes, exclusive of separately billable procedures. Kee Cooper MD November 13, 2017 17:21
--- NOTE | 2017-11-13 17:39 | HHI.FPPN ---
Addendum to progress note ADDENDUM Reason for addendum: Additonal documentation Additional information S: Yuriyalbatonya called on overhead intercom at approx [address] Ronquillo responded to Rm 1421 where Ms Wilson had increased RR and was moaning in pain. There was an NG tube in place. Pt was admitted from [facility] for SOB, ESBL Ecoli, MDR Pseudomonas and Enterococcus faecalis UTI, sepsis, multiorgan failure and AMS likely 2/2 sepsis. Nursing noticed a change in her breathing at approx 1610 hours. Pt is on tube feeding. Nursing believes pt may have aspirated. O: Initial VS @ 4:30PM: T: 99.6 / HR 115 / BP 219/98 / RR? / 82% on 4L NC, quickly corrected to 96% on partial rebreather mask In ISC @ 5:26PM: HR 100 / BP 143/80 / RR 19 / 100% BiPAP on 100% FiO2 Vital Signs Date Time Temp Pulse Resp B/P (MAP) Pulse Ox O2 Delivery O2 Flow Rate FiO2 11/13/17 17:05 100 100 11/13/17 16:20 4.00 11/13/17 12:00 98.2 69 16 160/73 (102) 11/13/17 11:37 Nasal Cannula GENERAL: Obese female patient in respiratory distress with partial rebreather at 100% FiO2. SKIN: Warm and dry. HEAD: Normocephalic. EYES: No scleral icterus. No injection or drainage. NECK: Supple, trachea midline. CARDIOVASCULAR: Tachycardic without murmurs, gallops, or rubs. RESPIRATORY: Pt in respiratory distress with accessory muscle use; coarse breath sounds bilaterally. GASTROINTESTINAL: Abdomen soft, non-tender, nondistended. : Healing stage I/II sacral decubitus ulcer on right buttocks; hernandez draining dooley red urine. EXTREMITIES: No cyanosis; 2+ pitting edema over dorsum of bilateral feet. NEUROLOGICAL: Awake, alert, following simple commands. A/P: 62 YO female admitted with UTI, sepsis and dyspnea with possible aspiration event at approx 1610 hours resulting in respiratory distress. Will r/ o cardiac etiology. PLAN: 1. ABG with pH 7.17, PCO2 71, PO2 77, HCO3 25 2. CXR 3. EKG 4. CBC 5. CMP 6. Troponin 7. Lasix 40mg IV push once 8. Solumedrol 125mg 9. Pt transfer to [facility] -Spoke to Dr Casillas to coordinate pt transfer; Dr Cooper came to see pt -Spoke to Dr Louis, pt attending prior to transfer, who oversaw city recorder Rubén Ronquillo MD R1 November 13, 2017 17:39
--- NOTE | 2017-11-13 18:36 | HHI.PR ---
Subjective Remarks late entry The patient was seen earlier today. She complained of some pain. She received [place] around noon. However patient was noted in the afternoon no shortness of breath. Jairt called. The patient is seen at the bedside. Patient is with labored breathing. Chest x-ray, ABG, EKG troponin, CBC, CMP. Will give Lasix 40 mg by 1 time and solu Medrol 125 one time. ABG stat reviewed, patient instructed to the environmental planning engineer care as she may need intubation discussed with Dr. Flores environmental planning engineer Objective Vitals Vital Signs Date Time Temp Pulse Resp B/P (MAP) Pulse Ox O2 Delivery O2 Flow Rate FiO2 11/13/17 17:05 100 100 11/13/17 16:20 94 4.00 11/13/17 12:00 98.2 69 16 160/73 (102) 98 11/13/17 11:37 97 Nasal Cannula 2.00 11/13/17 08:00 99.1 69 16 163/76 (105) 100 11/13/17 04:07 58 11/13/17 04:00 Nasal Cannula 2.00 11/13/17 04:00 97.8 64 22 165/75 (105) 98 11/13/17 00:17 70 11/13/17 00:00 98.2 65 20 174/72 (106) 98 11/13/17 00:00 Nasal Cannula 2.00 11/12/17 20:36 98.0 68 20 180/79 (112) 98 11/12/17 20:36 Nasal Cannula 2.00 11/12/17 20:05 58 I/O 11/12/17 11/12/17 11/12/17 11/13/17 11/13/17 11/13/17 06:59 14:59 22:59 06:59 14:59 22:59 Intake Total 1435 ml 300 ml 250 ml 957 ml Output Total 1450 ml 350 ml 950 ml 950 ml Balance -15 ml -50 ml -700 ml 7 ml Intake Oral 480 ml 0 ml IV Total 955 ml 300 ml 250 ml 805 ml Tube Feeding 92 ml Other 60 ml Output Urine Total 950 ml 350 ml 950 ml 800 ml Drainage Total 500 ml 150 ml # Voids 2 # Bowel Movements 4 0 Result Diagram: 11/12/17 0428 11/13/17 0710 Imaging Last Impressions Chest X-Ray 11/13/17 0000 Signed Impressions: Service Date/Time: Monday, November 13, 2017 16:42 - CONCLUSION: Mild compensated cardiomegaly otherwise negative Gamal Zamudio MD FACR Abdomen/Pelvis CT 11/10/17 0601 Signed Impressions: Service Date/Time: Friday, November 10, 2017 07:44 - CONCLUSION: 1.Focal abnormal circumferential wall thickening involving the descending colon at the level of the hepatic flexure with significant adjacent fluid tracking within the right paracardiac color. Given the extensive atherosclerosis and focal finding concern is for possible infarct. Infection is also within the differential diagnosis. 2. Interval placement of a right-sided percutaneous nephrostomy tube. Stable appearance of the right kidney with multiple renal stones. Josefa Hair MD Head CT 11/10/17 0000 Signed Impressions: Service Date/Time: Friday, November 10, 2017 11:22 - CONCLUSION: Stable exam. No acute abnormality.. Josefa Hair MD Objective Remarks GENERAL: The patient is reading, chronically ill. Acute distress with shortness of breath. SKIN: Warm and dry. HEAD: Normocephalic. EYES: No scleral icterus. No injection or drainage. NECK: Supple, trachea midline. No JVD or lymphadenopathy. CARDIOVASCULAR: Regular rate and rhythm without murmurs, gallops, or rubs. RESPIRATORY: Shortness of breath, in acute distress, labored breathing, positive rhonchi, some accessory muscle use. GASTROINTESTINAL: Abdomen soft, non-tender, nondistended. MUSCULOSKELETAL: No cyanosis, or edema. NEURO: Slurred speech, very limited conversive vocabulary, left wrist is chronically clenched BACK: Nontender without obvious deformity. No CVA tenderness. A/P Problem List: (1) UTI (urinary tract infection) ICD Code: N39.0 - Urinary tract infection, site not specified (2) Encephalopathy acute ICD Code: G93.40 - Encephalopathy, unspecified (3) Leukocytosis ICD Code: D72.829 - Elevated white blood cell count, unspecified (4) Abnormal CT scan ICD Code: R93.8 - Abnormal findings on diagnostic imaging of other specified body structures (5) SIMBA (acute kidney injury) ICD Code: N17.9 - Acute kidney failure, unspecified (6) Diabetes ICD Code: E11.9 - Type 2 diabetes mellitus without complications (7) Severe sepsis ICD Code: A41.9 - Sepsis, unspecified organism; R65.20 - Severe sepsis without septic shock Assessment and Plan 62-year-old white female admitted from a long-term facility for sepsis and acute hypoxic respiratory failure Acute hypoxic and hypercarbic respiratory failure requiring BIPAP and poss intubation Aspiration pneumonia Acute metabolic encephalopathy noted on 11/13 Patient is noted with labored breathing. Chest x-ray, ABG, EKG troponin, CBC, CMP. Will give Lasix 40 mg by 1 time and solu Medrol 125 one time. Placed on BIPAP and trabsfer to ICU ABG stat reviewe Placed on bipap, she may need intubation discussed with Dr. Flores environmental planning engineer. Transfer care to the environmental planning engineer Continue IV abx DC pain meds NPO Sepsis likely secondary to UTI and/or colitis/ aspiration PNA - BCs pending, UC pending, abx pending Possible UTI -Continue Zosyn and Flagyl -Appears to show colonization Colitis -Infectious versus ischemic dylan given radiology read concerning for infarct -Continue antibiotics as above -aspirin, Lipitor, -Independently reviewed EKG and I see no A. fib ; monitor on telemetry to chicken picker any obvious arrhythmias -Discussed with general surgery who sees no need for surgical intervention and is signing off -GI following, status post sigmoidoscopy with no significant pertinent positive findings apart from poor prep Encephalopathy -Likely multifactorial,likely secondary to sepsis superimposed on chronic cognitive impairment secondary to prior CVA. CT head is negative for any acute findings. -improving Aspiration risks -Likely from prior CVA, speech therapy has concluded patient is not a candidate for p.o. intake. Tube feeds is safest option, placing dietitian consult and notifying palliative care to help assess goals of care especially with son's input SIMBA on CKD -IVFs, improving -BMP in AM hx of CVA -aspirin, starting lipitor home metoprolol heparin Discharge Planning candidate for hospice at long-term living facility. pallpiative care ff Patient is full code however Patient reading with acute respiratory failure requiring bipap and poss intubation. 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
[2017-11-13 18:45] LABS: HEMATOCRIT 27.7 % (35.0-46.0); HEMOGLOBIN 8.6 GM/DL (11.6-15.3); MEAN CELL VOLUME 82.2 FL (80.0-100.0); MEAN CORPUSCULAR HEMOGLOBIN 25.4 PG (27.0-34.0); MEAN CORPUSCULAR HGB CONC 30.9 % (32.0-36.0); MEAN PLATELET VOLUME 8.6 FL (7.0-11.0); PLATELET COUNT 263 TH/MM3 (150-450); RED BLOOD COUNT 3.37 MIL/MM3 (4.00-5.30); RED CELL DISTRIBUTION WIDTH 17.2 % (11.6-17.2)
[2017-11-13 19:36] LABS: BANDS 2 % (0-6); LYMPHOCYTES 5 % (9-44); METAMYELOCYTES 1 % (0-1); MONOCYTES 2 % (0-8); NEUTROPHIL # MANUAL DIFF 13.8 TH/MM3 (1.8-7.7); POLYS (SEG NEUTROPHILS) 88 % (16-70); PROMYELOCYTES 1 % (0-0)
[2017-11-13 21:10] LABS: ALBUMIN 2.3 GM/DL (3.4-5.0); ALT (GPT) LESS THAN 6 U/L (10-53); AST (GOT) 13 U/L (15-37); BICARBONATE 22.1 MEQ/L (21.0-32.0); BLOOD UREA NITROGEN 35 MG/DL (7-18); CALCIUM 8.5 MG/DL (8.5-10.1); CHLORIDE 113 MEQ/L (98-107); CREATININE 2.27 MG/DL (0.50-1.00); GLOMERULAR FILTRATION RATE 22 ML/MIN (>89); GLUCOSE,RANDOM 158 MG/DL (74-106); SODIUM (NA) 148 MEQ/L (136-145)
[2017-11-13 21:14] LABS: ALKALINE PHOSPHATASE 84 U/L (45-117); TOTAL BILIRUBIN ADULT 0.3 MG/DL (0.2-1.0); TOTAL PROTEIN 6.9 GM/DL (6.4-8.2); TROPONIN I LESS THAN 0.02 NG/ML (0.02-0.05)
[2017-11-13] MEDS ORDERED: POTASSIUM CHLORIDE 25 MEQ EFFERVESCENT TAB NG ONE (21:45)
[2017-11-13] MEDS: ATORVASTATIN 40 MG TAB PO SCH (22:33)
[2017-11-13] MEDS: hydrALAZINE HCL 20 MG/ML VIAL IV PUSH PRN (22:45)
[2017-11-14] VITALS (14 sets, daily range): BP systolic 148–168; BP diastolic 66–82; PULSE 43–86; RESP 12–20; TEMP 98.3–99; O2SAT 98–100
[2017-11-14] MEDS: metroNIDAZOLE 500 MG INJ 100 ML IV SCH ×4 (01:13→18:47)
[2017-11-14] MEDS: hydrALAZINE HCL 20 MG/ML VIAL IV PUSH PRN (04:43)
[2017-11-14] MEDS: PIPERACIL-TAZO 2.25 GM PREMIX 50 ML IV SCH ×3 (05:01→21:21)
[2017-11-14 06:13] LABS: BASOPHIL % 0.1 % (0.0-2.0); EOSINOPHIL % 0.1 % (0.0-4.0); HEMATOCRIT 31.5 % (35.0-46.0); HEMOGLOBIN 9.9 GM/DL (11.6-15.3); LYMPH % 5.2 % (9.0-44.0); LYMPHOCYTE # 0.8 TH/MM3 (1.0-4.8); MEAN CELL VOLUME 82.1 FL (80.0-100.0); MEAN CORPUSCULAR HEMOGLOBIN 25.8 PG (27.0-34.0); MEAN CORPUSCULAR HGB CONC 31.5 % (32.0-36.0); MEAN PLATELET VOLUME 8.5 FL (7.0-11.0); MONO % 0.5 % (0.0-8.0); MONOCYTE # 0.1 TH/MM3 (0-0.9); NEUT % 94.1 % (16.0-70.0); PLATELET COUNT 313 TH/MM3 (150-450); RED BLOOD COUNT 3.84 MIL/MM3 (4.00-5.30); RED CELL DISTRIBUTION WIDTH 17.5 % (11.6-17.2)
[2017-11-14 07:15] LABS: BANDS 10 % (0-6); LYMPHOCYTES 7 % (9-44); METAMYELOCYTES 1 % (0-1); MONOCYTES 3 % (0-8); MYELOCYTES 3 % (0-0); NEUTROPHIL # MANUAL DIFF 14.4 TH/MM3 (1.8-7.7); POLYS (SEG NEUTROPHILS) 76 % (16-70)
[2017-11-14 07:32] LABS: ALBUMIN 2.6 GM/DL (3.4-5.0); ALT (GPT) 9 U/L (10-53); AST (GOT) 12 U/L (15-37); BICARBONATE 23.4 MEQ/L (21.0-32.0); BLOOD UREA NITROGEN 42 MG/DL (7-18); CALCIUM 9.1 MG/DL (8.5-10.1); CHLORIDE 114 MEQ/L (98-107); CREATININE 2.31 MG/DL (0.50-1.00); GLOMERULAR FILTRATION RATE 21 ML/MIN (>89); GLUCOSE,RANDOM 178 MG/DL (74-106); MAGNESIUM 1.9 MG/DL (1.5-2.5); PHOSPHORUS 3.2 MG/DL (2.5-4.9); SODIUM (NA) 148 MEQ/L (136-145)
[2017-11-14 07:34] LABS: ALKALINE PHOSPHATASE 86 U/L (45-117); TOTAL BILIRUBIN ADULT 0.3 MG/DL (0.2-1.0); TOTAL PROTEIN 7.8 GM/DL (6.4-8.2)
[2017-11-14] MEDS: ASPIRIN EC 81 MG TABEC PO SCH (08:49)
--- NOTE | 2017-11-14 08:59 | HHI.CCPN ---
Subjective Remarks/Hospital Course Hospital Course: This is a 62yF with history of stroke and admitted for acute colitis and multi- organism UTI. She has a history of dysphagia and was currently NPO on tube feeding. Today she had sudden onset of acute hypoxia with spo2 82% on nc o2. she was placed on NRB. She has noted ronchi bilaterally. she has significant edema and grossly appears volume overloaded. she was admitted with Cr >3 and has been gently diuresed and SIMBA is slowly improving. rapid response was called and she was emergently transferred to the ICU. due to her current mental status (and reported baseline mental status), no additional information is obtainable from the patient, and she only moans. ABG demonstrates severe respiratory acidosis. I attempted to contact her son and medical decision maker but was unable to reach him. Palliative care is following and has also not been able to reach him today. ROS unobtainable. Subjective: 11/14: respiratory status improving. acute hypercarbic failure resolved. on 3L nc. mental status back to baseline. lungs are much clearer today. Objective Vital Signs Date Time Temp Pulse Resp B/P (MAP) Pulse Ox O2 Delivery O2 Flow Rate FiO2 11/14/17 07:59 98 Nasal Cannula 3.00 11/14/17 06:00 61 11/14/17 05:45 30 11/14/17 04:00 98.4 12 160/74 (102) Intake and Output 11/14/17 11/14/17 11/15/17 08:00 16:00 00:00 Intake Total 150 ml Output Total 2550 ml Balance -2400 ml Result Diagram: 11/14/17 0600 11/14/17 0600 Other Results Laboratory Tests Test 11/13/17 16:12 11/13/17 17:52 11/14/17 05:55 Blood Gas Puncture Site LT RADIAL RT RADIAL RT RADIAL Blood Gas Patient Temperature 98.6 98.6 98.6 Blood Gas HCO3 25 mmol/L (22-26) 23 mmol/L (22-26) 24 mmol/L (22-26) Blood Gas Base Excess -2.9 mmol/L (-2-2) -1.9 mmol/L (-2-2) -0.9 mmol/L (-2-2) Blood Gas Oxygen Saturation 92 % (90-100) 98 % (90-100) 97 % (90-100) Arterial Blood pH 7.17 (7.380-7.420) 7.31 (7.380-7.420) 7.38 (7.380-7.420) Arterial Blood Partial Pressure CO2 71 mmHg (38-42) 48 mmHg (38-42) 41 mmHg (38-42) Arterial Blood Partial Pressure O2 77 mmHg (61-120) 240 mmHg (61-120) 149 mmHg (61-120) Arterial Blood Oxygen Content 13.3 Vol % (12.0-20.0) 13.0 Vol % (12.0-20.0) 14.7 Vol % (12.0-20.0) Arterial Blood Carboxyhemoglobin 1.0 % (0-4) 1.1 % (0-4) 1.0 % (0-4) Arterial Blood Methemoglobin 1.1 % (0-2) 0.9 % (0-2) 1.1 % (0-2) Blood Gas Hemoglobin 10.2 G/DL (12.0-16.0) 9.0 G/DL (12.0-16.0) 10.6 G/DL (12.0-16.0) Blood Gas Liter Flow 4 L/M Oxygen Delivery Device BIPAP BIPAP Blood Gas Ventilator Setting 15/5/60% 15/5 Blood Gas Inspired Oxygen 60 % 35 % Imaging Last Impressions Chest X-Ray 11/10/17 06 Signed Impressions: Service Date/Time: Friday, November 10, 2017 06:17 - CONCLUSION: No acute disease. Rosales Jay MD Abdomen/Pelvis CT 11/10/17 0601 Signed Impressions: Service Date/Time: Friday, November 10, 2017 07:44 - CONCLUSION: 1.Focal abnormal circumferential wall thickening involving the descending colon at the level of the hepatic flexure with significant adjacent fluid tracking within the right paracardiac color. Given the extensive atherosclerosis and focal finding concern is for possible infarct. Infection is also within the differential diagnosis. 2. Interval placement of a right-sided percutaneous nephrostomy tube. Stable appearance of the right kidney with multiple renal stones. Josefa Hair MD Head CT 11/10/17 0000 Signed Impressions: Service Date/Time: Friday, November 10, 2017 11:22 - CONCLUSION: Stable exam. No acute abnormality.. Josefa Hair MD Objective Remarks gen: middle-aged female lying in bed, appears older than stated age. no acute distress today. heent: nc. at. perrl. mucous membranes moist. neck: -jvd. trachea midline chest: unlabored. 3L o2 by NC. cv: normal rate, regular rhythm. abd: soft, nontender, nondistended, no guarding. extr: 2+ edema. distal pulses palpable neuro: RASS 0. follows commands. from prior documented exams, appears to be back to neurologic baseline. A/P Assessment and Plan Assessment: 62yF with multiple medical problems, complicated by acute hypercarbic respiratory failure which is resolving. continue management of multiple medical comorbidities. will ask hospitalist service to assume care. Active Problems: Acute hypoxic and hypercarbic respiratory failure - resolving. Aspiration pneumonia Acute metabolic encephalopathy- resolving. Plan: nc o2 as tolerated. wean fio2 for goal spo2 > 90% serial abg's have improved. patient already on broad spectrum coverage for HCAP aspiration agree with palliative involvement. avoid long-acting sedatives d/c opiates. NPO speech eval. Kee Cooper MD November 14, 2017 08:59
[2017-11-14] MEDS: METOPROLOL TARTRATE 25 MG TAB PO SCH ×2 (09:00→21:21)
--- NOTE | 2017-11-14 09:07 | RADRPT ---
EXAM DATE/TIME: 11/14/2017 07:56 [place] COMPARISON: CT ABDOMEN & PELVIS W/O CONTRAST, November 10, 2017, 7:44. INDICATIONS : Abnormal CT. MEDICAL HISTORY : Stroke. Hypertension. Atrial fibrillation. Hydronephrosis. Kidney calculus. Schizophrenia. Depressio n. Anxiety. Bipolar disorder. MRSA. SURGICAL HISTORY : Tonsillectomy. Hysterectomy. Cardiac catheterization. Repair fracture to left hip. ENCOUNTER: Initial ACUITY: 1 day PAIN SCORE: 0/10 LOCATION: Abdomen. AORTA: SAGITTAL PROXIMAL: 142 cm/sec SAGITTAL MID: 147 cm/sec SAGITTAL DISTAL: 193 cm/sec CELIAC ARTERY: CA ORIGIN: 149 cm/sec CA PROXIMAL: 147 cm/sec CA MID: 142 cm/sec CA DISTAL: 235 cm/sec HEPATIC ARTERY: 306 cm/sec SPLENIC ARTERY: 247 cm/sec SUPERIOR MESENTERIC ARTERY: SMA PROXIMAL: 355 cm/sec SMA MID: 168 cm/sec SMA DISTAL: 259 cm/sec FINDINGS: The vascular structures appear patent. However, there is elevated velocity in the proximal SMA which raises the possibility of focal stenosis. CONCLUSION: 1. There is elevated velocity within the proximal SMA which raises the possibility of a focal stenosi s. 2. The vessels imaged and appear to be patent. Yo Joiner MD on November 14, 2017 at 9:01 Board Certified Radiologist. This report was verified electronically.
[2017-11-14] MEDS: risperiDONE 0.5 MG TAB PO SCH ×2 (09:25→13:22)
[2017-11-14] MEDS: SERTRALINE HCL 50 MG TAB PO SCH (09:25)
[2017-11-14] MEDS: SODIUM CHLORIDE 0.9% FLUSH 10 ML FLUSH IV FLUSH SCH ×2 (09:25→21:21)
[2017-11-14] MEDS: GABAPENTIN 100 MG CAP PO SCH ×2 (09:25→21:20)
[2017-11-14] MEDS: MORPHINE SULFATE 4 MG/ML INJ IV PRN ×2 (09:48→22:37)
--- NOTE | 2017-11-14 14:11 | HHI.GIFU ---
Subjective Remarks Pt resting in bed Per RN pt had small BM over night Pt has NGT to R nostril, clamped Pt answers yes to some questions but no other verbal response (Teresa Martinez) Objective Vitals I&O Vital Signs Date Time Temp Pulse Resp B/P (MAP) Pulse Ox O2 Delivery O2 Flow Rate FiO2 11/14/17 12:00 98.3 73 16 164/77 (106) 100 11/14/17 12:00 76 11/14/17 10:00 75 11/14/17 09:53 18 11/14/17 08:00 54 11/14/17 08:00 98.4 54 18 164/81 (108) 100 11/14/17 07:59 98 Nasal Cannula 3.00 11/14/17 07:00 99 Bi-Pap 4.00 35 11/14/17 06:00 61 11/14/17 05:45 100 30 11/14/17 04:00 98.4 58 12 160/74 (102) 100 11/14/17 04:00 61 11/14/17 02:00 44 11/14/17 01:24 100 50 11/14/17 00:00 43 11/14/17 00:00 98.3 54 19 154/66 (95) 100 11/13/17 22:00 56 11/13/17 21:02 100 60 11/13/17 20:00 66 11/13/17 20:00 98.7 66 12 185/88 (120) 100 11/13/17 19:00 100 Bi-Pap 60 11/13/17 17:05 100 100 11/13/17 16:20 94 4.00 11/13/17 16:00 100 Bi-Pap 60 11/13/17 16:00 100.3 96 25 143/80 (101) 100 I/O 11/13/17 11/13/17 11/13/17 11/14/17 11/14/17 11/14/17 07:00 15:00 23:00 07:00 15:00 23:00 Intake Total 957 ml 200 ml Output Total 950 ml 830 ml 2550 ml Balance 7 ml -830 ml -2350 ml Intake Oral 0 ml IV Total 805 ml 200 ml Tube Feeding 92 ml Other 60 ml Output Urine Total 800 ml 800 ml 2550 ml Drainage Total 150 ml 30 ml 0 ml # Bowel Movements 0 1 1 Laboratory Laboratory Tests Test 11/13/17 16:12 11/13/17 17:52 11/13/17 18:09 11/14/17 05:55 Blood Gas Puncture Site LT RADIAL RT RADIAL RT RADIAL Blood Gas Patient Temperature 98.6 98.6 98.6 Blood Gas HCO3 25 23 24 Blood Gas Base Excess -2.9 -1.9 -0.9 Blood Gas Oxygen Saturation 92 98 97 Arterial Blood pH 7.17 7.31 7.38 Arterial Blood Partial Pressure CO2 71 48 41 Arterial Blood Partial Pressure O2 77 240 149 Arterial Blood Oxygen Content 13.3 13.0 14.7 Arterial Blood Carboxyhemoglobin 1.0 1.1 1.0 Arterial Blood Methemoglobin 1.1 0.9 1.1 Blood Gas Hemoglobin 10.2 9.0 10.6 Blood Gas Liter Flow 4 Oxygen Delivery Device BIPAP BIPAP Blood Gas Ventilator Setting 15/5/60% 15/5 Blood Gas Inspired Oxygen 60 35 White Blood Count 15.0 Red Blood Count 3.37 Hemoglobin 8.6 Hematocrit 27.7 Mean Corpuscular Volume 82.2 Mean Corpuscular Hemoglobin 25.4 Mean Corpuscular Hemoglobin Concent 30.9 Red Cell Distribution Width 17.2 Platelet Count 263 Mean Platelet Volume 8.6 CBC Comment AUTO DIFF Differential Total Cells Counted 100 Neutrophils % (Manual) 88 Band Neutrophils % 2 Lymphocytes % 5 Monocytes % 2 Eosinophils % 1 Neutrophils # (Manual) 13.8 Metamyelocytes 1 Promyelocytes 1 Differential Comment FINAL DIFF MANUAL Platelet Estimate NORMAL Platelet Morphology Comment NORMAL Blood Urea Nitrogen 35 Creatinine 2.27 Random Glucose 158 Total Protein 6.9 Albumin 2.3 Calcium Level 8.5 Alkaline Phosphatase 84 Aspartate Amino Transf (AST/SGOT) 13 Alanine Aminotransferase (ALT/SGPT) LESS THAN 6 Total Bilirubin 0.3 Sodium Level 148 Potassium Level 3.0 Chloride Level 113 Carbon Dioxide Level 22.1 Anion Gap 13 Estimat Glomerular Filtration Rate 22 Troponin I LESS THAN 0.02 Test 11/14/17 06:00 11/14/17 12:15 White Blood Count 16.0 Red Blood Count 3.84 Hemoglobin 9.9 Hematocrit 31.5 Mean Corpuscular Volume 82.1 Mean Corpuscular Hemoglobin 25.8 Mean Corpuscular Hemoglobin Concent 31.5 Red Cell Distribution Width 17.5 Platelet Count 313 Mean Platelet Volume 8.5 Neutrophils (%) (Auto) 94.1 Lymphocytes (%) (Auto) 5.2 Monocytes (%) (Auto) 0.5 Eosinophils (%) (Auto) 0.1 Basophils (%) (Auto) 0.1 Neutrophils # (Auto) 15.0 Lymphocytes # (Auto) 0.8 Monocytes # (Auto) 0.1 Eosinophils # (Auto) 0.0 Basophils # (Auto) 0.0 CBC Comment AUTO DIFF Differential Total Cells Counted 100 Neutrophils % (Manual) 76 Band Neutrophils % 10 Lymphocytes % 7 Monocytes % 3 Neutrophils # (Manual) 14.4 Metamyelocytes 1 Myelocytes 3 Differential Comment FINAL DIFF MANUAL Platelet Estimate NORMAL Platelet Morphology Comment NORMAL Nasal Screen MRSA (PCR) MRSA DETECTED Blood Urea Nitrogen 42 Creatinine 2.31 Random Glucose 178 Total Protein 7.8 Albumin 2.6 Calcium Level 9.1 Phosphorus Level 3.2 Magnesium Level 1.9 Alkaline Phosphatase 86 Aspartate Amino Transf (AST/SGOT) 12 Alanine Aminotransferase (ALT/SGPT) 9 Total Bilirubin 0.3 Sodium Level 148 Potassium Level 3.8 Chloride Level 114 Carbon Dioxide Level 23.4 Anion Gap 11 Estimat Glomerular Filtration Rate 21 Blood Gas Puncture Site RT RADIAL Blood Gas Patient Temperature 98.6 Blood Gas HCO3 25 Blood Gas Base Excess 0.2 Blood Gas Oxygen Saturation 97 Arterial Blood pH 7.36 Arterial Blood Partial Pressure CO2 45 Arterial Blood Partial Pressure O2 129 Arterial Blood Oxygen Content 14.1 Arterial Blood Carboxyhemoglobin 1.2 Arterial Blood Methemoglobin 1.0 Blood Gas Hemoglobin 10.1 Oxygen Delivery Device NASAL CANNULA Blood Gas Liter Flow 3 Date/Time Source Procedure Growth Status 11/10/17 06:15 Blood Peripheral Aerobic Blood Culture - Preliminary NO GROWTH IN 4 DAYS Resulted 11/10/17 06:15 Blood Peripheral Anaerobic Blood Culture - Preliminary NO GROWTH IN 4 DAYS Resulted 11/10/17 06:20 Urine Catheterized Urine Urine Culture - Final Pseudomonas Aeruginosa Multi-Drug Resistant Escherichia Coli Esbl Positive Enterococcus Faecalis Complete Imaging Last Impressions Abdomen Ultrasound 11/14/17 0000 Signed Impressions: Service Date/Time: October 07:56 - CONCLUSION: 1. There is elevated velocity within the proximal SMA which raises the possibility of a focal stenosis. 2. The vessels imaged and appear to be patent. Yo Joiner MD Chest X-Ray 11/13/17 0000 Signed Impressions: Service Date/Time: Monday, November 13, 2017 16:42 - CONCLUSION: Mild compensated cardiomegaly otherwise negative Gamal Zamudio MD FACR Abdomen/Pelvis CT 11/10/17 0601 Signed Impressions: Service Date/Time: Friday, November 10, 2017 07:44 - CONCLUSION: 1.Focal abnormal circumferential wall thickening involving the descending colon at the level of the hepatic flexure with significant adjacent fluid tracking within the right paracardiac color. Given the extensive atherosclerosis and focal finding concern is for possible infarct. Infection is also within the differential diagnosis. 2. Interval placement of a right-sided percutaneous nephrostomy tube. Stable appearance of the right kidney with multiple renal stones. Josefa Hair MD Head CT 11/10/17 0000 Signed Impressions: Service Date/Time: Friday, November 10, 2017 11:22 - CONCLUSION: Stable exam. No acute abnormality.. Josefa Hair MD Physical Exam HEENT: Normocephalic; atraumatic CHEST: Coarse BS ABDOMEN: Distended, soft, nontender, bowel sounds active SKIN: Normal; no rash; no jaundice. LOTTERY OFFICE MANAGER: Awake, answers yes to some questions (Teresa Martinez) Assessment and Plan Plan Assessment: - Colitis- infectious vs ischemic- unable to obtain history from patient CT abdomen and pelvis W/O IV contrast (11/10) --> Focal abnormal circumferential wall thickening involving the descending colon at the level of the hepatic flexure with significant adjacent fluid tracking within the right paracardiac color. Given the extensive atherosclerosis and focal finding concern is for possible infarct. Infection is also within the differential diagnosis. Interval placement of a right-sided percutaneous nephrostomy tube. Stable appearance of the right kidney with multiple renal stones. Febrile with leukocytosis C diff stool ordered by GS, pt started on IV Flagyl and Zosyn - Anemia, microcytic, hypochromic- hgb 10 in July Colonoscopy (11/12) --> Severe diverticulosis in the sigmoid and descending colon. Poor prep. Biopsy from descending colon. Internal and external hemorrhoids. Pathology ( descending colon) focal acute colitis with non-specific features. (11/14) Pt remains in ICU, respiratory status seems to be improving on NC. She still has NGT to R nostril, not receiving any feedings at this time. PIANO MECHANIC APPRENTICE has recommended NPO Abdominal US with mesenteric vessels --> There is elevated velocity within the proximal SMA which raises the possibility of a focal stenosis. The vessels imaged and appear to be patent. H/H is improving, last transfusion on the . No obvious source of GIB. Iron panel: Iron-13 TIBC-155 %sat-8.4 Ferritin-328 (transfused on the ) TSH WNL. Leukocytosis noted- pt on Zosyn and Flagyl Plan: Start TF- Glucerna 1.5 at 55 mL/hr Monitor H/H- seems to be improving Possible need for EGD/PEG- would be early next week Palliative to determine goals of care Zosyn and Flagyl- pathology consistent with acute colitis Supportive care Further recommendations based on clinical course Pt has been seen and examined by myself and and this note is written on her behalf (Teresa Martinez) Teresa Martinez November 14, 2017 14:11 Maura Donahue MD November 14, 2017 18:12
--- NOTE | 2017-11-14 17:10 | HHI.HCPN ---
Reason for visit a. To assist with evaluation and management of symptoms including: dysphagia ,dyspnea, pain, confusion b. To assist medical decision maker(s) with: better understanding of current medical conditions; weighing benefits/burdens of medical treatment options; making medical treatment decisions. Subjective/Interval History *Palliative care reconsulted 11/12/17 by medical attending, palliative care already involved/ actively following this patient. S/p colonoscopy per GI: +findings Severe diverticulosis sigmoid,descending colon. + Hemorrhoids. Biopsy significant for focal acute colitis with nonspecific features. General surgery signed off no need for surgical intervention. ST following, recommends NPO --patient still demonstrating aspiration. Recommends bypass feedings for now. Ongoing ST evaluation. Known history of dysphasia and dysarthria and prior barium swallow studies. During May 2017 evaluation patient was tolerating pured diet with nectar thickened liquids. Patient was transferred to the intensive care unit yesterday after sudden onset of acute hypoxia with oxygen saturations dropping to 82%. She was placed on a nonrebreather. Patient was noted to have rhonchi bilaterally; she had significant edema and appeared to be volume overloaded. ABG demonstrated severe respiratory acidosis. On exam today, patient's respiratory status appears to have improved. Patient denies feeling short of breath. Oxygen saturations in the high 90s on 3 L via nasal cannula. Patient is alert oriented to self and son. She is able to respond to simple questions with brief, 1-2 word answers, becoming increasingly confused. When asked if she has any other children, patient nods and states "3 million." Patient reporting severe, stabbing pain in her legs bilaterally. Bilateral lower extremities are edematous and painful to touch as evidenced by moaning and grimacing. PRN morphine is available q6 hours and has been administered 1 time in the past 24 hours; will notify nurse. Following exam call to cong Daniela. Patient remains NPO at this time; patient' s son indicating he plans to proceed with PEG tube placement if indicated. Goals remain aggressive. Update provided on patient's clinical condition, plan to transfer patient to regular floor later today. Questions answered to the best of my ability. . . Family/friend interactions See interval history . Advance Directives Health Care Surrogate: Copy in medical record Advance Directive Specifics Date completed: 03/2013 Health Care Surrogate(s): Cong Méndez Steve--this was misspelled by person completing form son's name is Daniela Objective Vital Signs Date Time Temp Pulse Resp B/P (MAP) Pulse Ox O2 Delivery O2 Flow Rate FiO2 11/14/17 16:00 59 11/14/17 12:00 98.3 73 16 164/77 (106) 100 11/14/17 12:00 76 11/14/17 10:00 75 11/14/17 09:53 18 11/14/17 08:00 54 11/14/17 08:00 98.4 54 18 164/81 (108) 100 11/14/17 07:59 98 Nasal Cannula 3.00 11/14/17 07:00 99 Bi-Pap 4.00 35 11/14/17 06:00 61 11/14/17 05:45 100 30 11/14/17 04:00 98.4 58 12 160/74 (102) 100 11/14/17 04:00 61 11/14/17 02:00 44 11/14/17 01:24 100 50 11/14/17 00:00 43 11/14/17 00:00 98.3 54 19 154/66 (95) 100 11/13/17 22:00 56 11/13/17 21:02 100 60 11/13/17 20:00 66 11/13/17 20:00 98.7 66 12 185/88 (120) 100 11/13/17 19:00 100 Bi-Pap 60 11/13/17 17:05 100 100 Intake & Output 11/14/17 11/14/17 07:00 19:00 Intake Total 200 ml 200 ml Output Total 2550 ml 2800 ml Balance -2350 ml -2600 ml IV Total 200 ml 200 ml Output Urine Total 2550 ml 2800 ml Drainage Total 0 ml # Bowel Movements 1 . Physical Exam CONSTITUTIONAL/GENERAL: Well-nourished female, in no distress TUBES/LINES/DRAINS: Peripheral IV upper extremity. NG tube. Nasal cannula, Rebolledo catheter SKIN: No jaundice, rashes, or lesions. No wounds seen anteriorly. Skin warm/dry CARDIOVASCULAR: Regular rate and rhythm without murmur. No JVD. Peripheral pulses symmetric. RESPIRATORY/CHEST: Symmetric, unlabored respirations. Breath sounds diminished bilaterally. On nasal cannula. GASTROINTESTINAL: Abdomen soft, nontender, nondistended. No hepato-splenomegaly , or palpable masses. Bowel sounds hypoactive. GENITOURINARY: Without palpable bladder distension. Rebolledo catheter in place. MUSCULOSKELETAL: Extremities without clubbing, cyanosis. 2+ pedal edema. + Edema right upper extremity. + Tenderness to entire lower legs even to light touch patient unable to further qualify. NEUROLOGICAL: Awake . Oriented to self, son. Intermittently confused stating she has "3 million children. Limited verbalization primarily yes/no and occasional few other words. Left upper extremity rigid, contracted. Right upper extremity with generalized weak movement. Does not move lower extremities to command. PSYCHIATRIC: Calm with no apparent anxiety. . Diagnostic Tests Laboratory Laboratory Tests Test 11/12/17 04:28 11/13/17 07:10 11/13/17 16:12 11/13/17 17:52 White Blood Count 16.5 TH/MM3 (4.0-11.0) Red Blood Count 3.44 MIL/MM3 (4.00-5.30) Hemoglobin 8.9 GM/DL (11.6-15.3) Hematocrit 28.0 % (35.0-46.0) Mean Corpuscular Volume 81.3 FL (80.0-100.0) Mean Corpuscular Hemoglobin 25.8 PG (27.0-34.0) Mean Corpuscular Hemoglobin Concent 31.7 % (32.0-36.0) Red Cell Distribution Width 17.1 % (11.6-17.2) Platelet Count 253 TH/MM3 (150-450) Mean Platelet Volume 9.1 FL (7.0-11.0) Neutrophils (%) (Auto) 83.9 % (16.0-70.0) Lymphocytes (%) (Auto) 9.1 % (9.0-44.0) Monocytes (%) (Auto) 4.7 % (0.0-8.0) Eosinophils (%) (Auto) 1.7 % (0.0-4.0) Basophils (%) (Auto) 0.6 % (0.0-2.0) Neutrophils # (Auto) 13.8 TH/MM3 (1.8-7.7) Lymphocytes # (Auto) 1.5 TH/MM3 (1.0-4.8) Monocytes # (Auto) 0.8 TH/MM3 (0-0.9) Eosinophils # (Auto) 0.3 TH/MM3 (0-0.4) Basophils # (Auto) 0.1 TH/MM3 (0-0.2) CBC Comment DIFF FINAL Differential Comment Blood Urea Nitrogen 44 MG/DL (7-18) 37 MG/DL (7-18) Creatinine 2.66 MG/DL (0.50-1.00) 2.14 MG/DL (0.50-1.00) Random Glucose 105 MG/DL (74-106) 116 MG/DL (74-106) Calcium Level 8.5 MG/DL (8.5-10.1) 8.4 MG/DL (8.5-10.1) Sodium Level 149 MEQ/L (136-145) 150 MEQ/L (136-145) Potassium Level 3.5 MEQ/L (3.5-5.1) 3.0 MEQ/L (3.5-5.1) Chloride Level 116 MEQ/L (98-107) 116 MEQ/L (98-107) Carbon Dioxide Level 23.0 MEQ/L (21.0-32.0) 25.1 MEQ/L (21.0-32.0) Anion Gap 10 MEQ/L (5-15) 9 MEQ/L (5-15) Estimat Glomerular Filtration Rate 18 ML/MIN (>89) 23 ML/MIN (>89) Iron Level 13 MCG/DL (50-170) Total Iron Binding Capacity 155 MCG/DL (250-450) Percent Iron Saturation 8.4 % (20-50) Ferritin 328 NG/ML (8-252) Vitamin B12 Level 590 PG/ML (193-986) Folate GREATER THAN 20.0 NG/ML Thyroid Stimulating Hormone 3rd Gen 1.220 uIU/ML (0.358-3.740) Blood Gas Puncture Site LT RADIAL RT RADIAL Blood Gas Patient Temperature 98.6 98.6 Blood Gas HCO3 25 mmol/L (22-26) 23 mmol/L (22-26) Blood Gas Base Excess -2.9 mmol/L (-2-2) -1.9 mmol/L (-2-2) Blood Gas Oxygen Saturation 92 % (90-100) 98 % (90-100) Arterial Blood pH 7.17 (7.380-7.420) 7.31 (7.380-7.420) Arterial Blood Partial Pressure CO2 71 mmHg (38-42) 48 mmHg (38-42) Arterial Blood Partial Pressure O2 77 mmHg (61-120) 240 mmHg (61-120) Arterial Blood Oxygen Content 13.3 Vol % (12.0-20.0) 13.0 Vol % (12.0-20.0) Arterial Blood Carboxyhemoglobin 1.0 % (0-4) 1.1 % (0-4) Arterial Blood Methemoglobin 1.1 % (0-2) 0.9 % (0-2) Blood Gas Hemoglobin 10.2 G/DL (12.0-16.0) 9.0 G/DL (12.0-16.0) Blood Gas Liter Flow 4 L/M Oxygen Delivery Device BIPAP Blood Gas Ventilator Setting 15/5/60% Blood Gas Inspired Oxygen 60 % Test 11/13/17 18:09 11/14/17 05:55 11/14/17 06:00 11/14/17 12:15 White Blood Count 15.0 TH/MM3 (4.0-11.0) 16.0 TH/MM3 (4.0-11.0) Red Blood Count 3.37 MIL/MM3 (4.00-5.30) 3.84 MIL/MM3 (4.00-5.30) Hemoglobin 8.6 GM/DL (11.6-15.3) 9.9 GM/DL (11.6-15.3) Hematocrit 27.7 % (35.0-46.0) 31.5 % (35.0-46.0) Mean Corpuscular Volume 82.2 FL (80.0-100.0) 82.1 FL (80.0-100.0) Mean Corpuscular Hemoglobin 25.4 PG (27.0-34.0) 25.8 PG (27.0-34.0) Mean Corpuscular Hemoglobin Concent 30.9 % (32.0-36.0) 31.5 % (32.0-36.0) Red Cell Distribution Width 17.2 % (11.6-17.2) 17.5 % (11.6-17.2) Platelet Count 263 TH/MM3 (150-450) 313 TH/MM3 (150-450) Mean Platelet Volume 8.6 FL (7.0-11.0) 8.5 FL (7.0-11.0) CBC Comment AUTO DIFF AUTO DIFF Differential Total Cells Counted 100 100 Neutrophils % (Manual) 88 % (16-70) 76 % (16-70) Band Neutrophils % 2 % (0-6) 10 % (0-6) Lymphocytes % 5 % (9-44) 7 % (9-44) Monocytes % 2 % (0-8) 3 % (0-8) Eosinophils % 1 % (0-4) Neutrophils # (Manual) 13.8 TH/MM3 (1.8-7.7) 14.4 TH/MM3 (1.8-7.7) Metamyelocytes 1 % (0-1) 1 % (0-1) Promyelocytes 1 % (0-0) Differential Comment FINAL DIFF MANUAL FINAL DIFF MANUAL Platelet Estimate NORMAL (NORMAL) NORMAL (NORMAL) Platelet Morphology Comment NORMAL (NORMAL) NORMAL (NORMAL) Blood Urea Nitrogen 35 MG/DL (7-18) 42 MG/DL (7-18) Creatinine 2.27 MG/DL (0.50-1.00) 2.31 MG/DL (0.50-1.00) Random Glucose 158 MG/DL (74-106) 178 MG/DL (74-106) Total Protein 6.9 GM/DL (6.4-8.2) 7.8 GM/DL (6.4-8.2) Albumin 2.3 GM/DL (3.4-5.0) 2.6 GM/DL (3.4-5.0) Calcium Level 8.5 MG/DL (8.5-10.1) 9.1 MG/DL (8.5-10.1) Alkaline Phosphatase 84 U/L (45-117) 86 U/L (45-117) Aspartate Amino Transf (AST/SGOT) 13 U/L (15-37) 12 U/L (15-37) Alanine Aminotransferase (ALT/SGPT) LESS THAN 6 U/L (10-53) 9 U/L (10-53) Total Bilirubin 0.3 MG/DL (0.2-1.0) 0.3 MG/DL (0.2-1.0) Sodium Level 148 MEQ/L (136-145) 148 MEQ/L (136-145) Potassium Level 3.0 MEQ/L (3.5-5.1) 3.8 MEQ/L (3.5-5.1) Chloride Level 113 MEQ/L (98-107) 114 MEQ/L (98-107) Carbon Dioxide Level 22.1 MEQ/L (21.0-32.0) 23.4 MEQ/L (21.0-32.0) Anion Gap 13 MEQ/L (5-15) 11 MEQ/L (5-15) Estimat Glomerular Filtration Rate 22 ML/MIN (>89) 21 ML/MIN (>89) Troponin I LESS THAN 0.02 NG/ML Blood Gas Puncture Site RT RADIAL RT RADIAL Blood Gas Patient Temperature 98.6 98.6 Blood Gas HCO3 24 mmol/L (22-26) 25 mmol/L (22-26) Blood Gas Base Excess -0.9 mmol/L (-2-2) 0.2 mmol/L (-2-2) Blood Gas Oxygen Saturation 97 % (90-100) 97 % (90-100) Arterial Blood pH 7.38 (7.380-7.420) 7.36 (7.380-7.420) Arterial Blood Partial Pressure CO2 41 mmHg (38-42) 45 mmHg (38-42) Arterial Blood Partial Pressure O2 149 mmHg (61-120) 129 mmHg (61-120) Arterial Blood Oxygen Content 14.7 Vol % (12.0-20.0) 14.1 Vol % (12.0-20.0) Arterial Blood Carboxyhemoglobin 1.0 % (0-4) 1.2 % (0-4) Arterial Blood Methemoglobin 1.1 % (0-2) 1.0 % (0-2) Blood Gas Hemoglobin 10.6 G/DL (12.0-16.0) 10.1 G/DL (12.0-16.0) Oxygen Delivery Device BIPAP NASAL CANNULA Blood Gas Ventilator Setting 15/5 Blood Gas Inspired Oxygen 35 % Neutrophils (%) (Auto) 94.1 % (16.0-70.0) Lymphocytes (%) (Auto) 5.2 % (9.0-44.0) Monocytes (%) (Auto) 0.5 % (0.0-8.0) Eosinophils (%) (Auto) 0.1 % (0.0-4.0) Basophils (%) (Auto) 0.1 % (0.0-2.0) Neutrophils # (Auto) 15.0 TH/MM3 (1.8-7.7) Lymphocytes # (Auto) 0.8 TH/MM3 (1.0-4.8) Monocytes # (Auto) 0.1 TH/MM3 (0-0.9) Eosinophils # (Auto) 0.0 TH/MM3 (0-0.4) Basophils # (Auto) 0.0 TH/MM3 (0-0.2) Myelocytes 3 % (0-0) Nasal Screen MRSA (PCR) MRSA DETECTED (NOT DETECT) Phosphorus Level 3.2 MG/DL (2.5-4.9) Magnesium Level 1.9 MG/DL (1.5-2.5) Blood Gas Liter Flow 3 L/M . Result Diagram: 11/14/17 0600 11/14/17 0600 Imaging Last 72 hours Impressions Abdomen Ultrasound 11/14/17 0000 Signed Impressions: Service Date/Time: October 07:56 - CONCLUSION: 1. There is elevated velocity within the proximal SMA which raises the possibility of a focal stenosis. 2. The vessels imaged and appear to be patent. Yo Joiner MD Chest X-Ray 11/13/17 0000 Signed Impressions: Service Date/Time: Monday, November 13, 2017 16:42 - CONCLUSION: Mild compensated cardiomegaly otherwise negative Gamal Zamudio MD FACR . Assessment and Plan Disease Oriented Problem List: (1) Anemia (2) Hematuria (3) Acute kidney injury (4) ESBL (extended spectrum beta-lactamase) producing bacteria infection (5) Atrial fibrillation (6) CAD (coronary artery disease) (7) Schizophrenia (8) Dyslipidemia (9) UTI (urinary tract infection) (10) Hydronephrosis (11) Severe sepsis with acute organ dysfunction (12) right MCA stroke 2013, with left hemiparesis (13) hypertension (14) history of decubiti (15) chronic kidney disease (16) coronary artery disease, history of stents (17) dislodging of nephrostomy tube, replaced 07/17/17 Symptom Scale: (1) Confusion 0-10 Scale: Unable to quantify (2) Dyspnea 0-10 Scale: Unable to quantify (3) pain 0-10 Scale: Unable to quantify (4) Dysphagia 0-10 Scale: Unable to quantify Pertinent Non-Medical Issues Psychosocial: Spiritual: Legal:Patient confused baseline, does not appear to have capacity to make medical decisions does not appear she will regain capacity. Her son is designated as healthcare surrogate on document dated 2012. They have not been able to reach him this admission for consent, of note palliative care was consulted on this patient in July 2017 and at that time there was no answer or voicemail on my multiple attempts. Her review further of old records in May 2017 case management requested wellness checks at patient's son possible address, this person did not live there. Apparently at some point in 2014 the son was incarcerated per CM notes. Not clear his location at this time , per palliative marriage and family social worker review of [employer] record search 10/16/17 appears a Dev Wilson was arrested through [employer] however he was not incarcerated was released-- not clear if this person is related to pt. Will request [employer] search to identify possible decision makers. 11/11/17 palliative marriage and family social worker reviewed findings of accurint report and social network search--able to locate and initiate contact through Son's girlfriend number, son is actually DANIELA Wilson [phone] Ethical issues impacting care: none identified Important Contacts SON/HCS Daniela Wilson [phone] NOT Dev Wilson [phone], [phone]-->this # is NOT anyone related to pt . Prognosis This patient has multiple chronic medical conditions. She has been debilitated and lives in a intermediate long-term. Due to these multiple conditions, she will likely continue to have ongoing complications, setbacks and recurrent hospitalizations. . Code Status: Full Code Plan * Legal decision maker:Patient confused baseline, does not appear to have capacity to make medical decisions does not appear she will regain capacity. Her son is designated as healthcare surrogate on document dated 2012. Son is Daniela Wilson at [phone]. * Goals: Aggressive for now, continue all available treatments, including full code. * CODE STATUS: full code * Following exam call to cong Cadena. Patient remains NPO at this time; patient 's son indicating he plans to proceed with PEG tube placement if indicated. Goals remain aggressive. Update provided on patient's clinical condition, plan to transfer patient to regular floor later today. Questions answered to the best of my ability. * SYMPTOMS: --Encephalopathy-patient status post CVA likely with some residual cognitive deficits. Also with long psychiatric history per records. May be baseline status? --Dyspnea-EMS activated for respiratory distress, low O2 sats. CXR no acute process. Tolerating nasal cannula currently. Rapid response called 11/13/17 secondary to sudden onset, acute respiratory distress with oxygen saturations dropping into the low 80s. Scattered rhonchi noted with edema and volume overload. Patient transferred to [facility]. Symptoms have since resolved and the patient will be returning to the regular floor later today. --Pain-patient appears very tender/painful with minimal touch and exam to both lower extremities. Unable to determine specific location or quality of pain she begins moaning with any type of exam to lower extremities. No obvious erythema or edema. 1+ pedal edema. Bilateral foot drop. ? Etiology chronic immobility/bedbound status. It is noted she is on gabapentin 100 mg twice daily, may have some neuropathic pain. Consider uptitration. May require additional analgesics if pain persists/worsens , though difficult to further assess/quantify, will continue to evaluate. Appears comfortable when at rest and lower extremities are not disturbed. per d/w son pt w chronic pain to BLE since bedbound. May consider tylenol prn, cautious use of opiates. Patient today able to verbalize pain to her legs. She is unable to quantify or qualify but says they always hurt. Her son confirmed this during discussion with him, he indicated she had been having some lower extremity of pain since becoming immobile and bedbound. Current orders for IV morphine PRN; 1 dose administered in the past 24 hours. --Dysphagia- s/p multiple CVAs. Appears has had some degree of ongoing chronic dysphagia 2/2 to, with diet modifications in place. May be worsened this admission 2/2 to acute infectious process?, or progressive debility/ weakness, rec. ST cont to follow as swallowing ability may again improve to baseline, or she may require bypass feeding via PEG. NGT in place currently, lay out technician has made TF recommendations. During May 2017 evaluation patient was tolerating pured diet with nectar thickened liquids. Son plans to proceed with PEG tube placement if indicated. * Palliative care will continue to follow during hospital course as condition evolves, to assist patient/decision-maker with understanding of medical conditions, weighing benefits/burdens of treatment options, for clarification of goals of treatment. Additionally will assist with any symptoms of palliative concern . Attestation To help prompt me to consider important information that might be impacting today's encounter and assessment, information from prior notes written by myself or my colleagues may have been "brought forward" into today's note. My signature on this note, however, is an attestation that I personally performed the exam, history, and/or decision-making noted today, and, unless otherwise indicated, the interactions with patient, family, and staff as well as the review of records all occurred today. I also attest that the listed assessment and stated plan reflect my best clinical judgment today based on the combination of historical information, prior notes, and today's exam/ interactions. When time spent is documented, it refers only to time spent today by the signer, or if indicated, combined time spent today by collaborating physician/nurse practitioner. . Amy Sommers November 14, 2017 17:10
[2017-11-14] MEDS: ATORVASTATIN 40 MG TAB PO SCH (21:21)
[2017-11-15] VITALS (11 sets, daily range): BP systolic 139–188; BP diastolic 67–84; PULSE 57–73; RESP 17–21; TEMP 97.4–98.4; O2SAT 95–100
[2017-11-15] MEDS: metroNIDAZOLE 500 MG INJ 100 ML IV SCH ×4 (01:13→18:56)
[2017-11-15] MEDS: PIPERACIL-TAZO 2.25 GM PREMIX 50 ML IV SCH ×3 (05:10→21:09)
[2017-11-15] MEDS: MORPHINE SULFATE 4 MG/ML INJ IV PRN (05:11)
[2017-11-15 05:37] LABS: BICARBONATE 24.8 MEQ/L (21.0-32.0); CALCIUM 8.8 MG/DL (8.5-10.1); CREATININE 2.43 MG/DL (0.50-1.00)
[2017-11-15 06:25] LABS: HEMATOCRIT 33.9 % (35.0-46.0); HEMOGLOBIN 10.5 GM/DL (11.6-15.3); MEAN CELL VOLUME 82.4 FL (80.0-100.0); MEAN CORPUSCULAR HEMOGLOBIN 25.6 PG (27.0-34.0); MEAN CORPUSCULAR HGB CONC 31.1 % (32.0-36.0); PLATELET COUNT 307 TH/MM3 (150-450); RED BLOOD COUNT 4.11 MIL/MM3 (4.00-5.30); RED CELL DISTRIBUTION WIDTH 18.2 % (11.6-17.2); WHITE BLOOD COUNT 20.3 TH/MM3 (4.0-11.0)
--- NOTE | 2017-11-15 07:29 | HHI.PR ---
Subjective Remarks In bed appears more awake and alert. Has no pain at this time however the patient was asking the nurse for pain ,eds. Patient is breating well, feels tired. Seen by speech therapist will advance diet. Patient is refusing PEG tube placement Will keep the NGT for now. Will do calorie count. Patient denies any n/v/d/. No cp, or sob. Objective Vitals Vital Signs Date Time Temp Pulse Resp B/P (MAP) Pulse Ox O2 Delivery O2 Flow Rate FiO2 11/15/17 04:00 98.4 66 20 152/68 (96) 95 11/15/17 03:56 57 11/15/17 00:11 64 11/15/17 00:00 98.0 67 18 139/67 (91) 97 11/14/17 20:00 99.0 86 20 160/82 (108) 98 11/14/17 20:00 66 11/14/17 20:00 Nasal Cannula 2.00 11/14/17 18:01 Nasal Cannula 3.00 11/14/17 18:00 62 11/14/17 17:37 98.7 75 19 168/74 (105) 100 11/14/17 16:00 59 11/14/17 16:00 98.4 59 20 148/70 (96) 100 11/14/17 12:00 98.3 73 16 164/77 (106) 100 11/14/17 12:00 76 11/14/17 10:00 75 11/14/17 09:53 18 11/14/17 08:00 54 11/14/17 08:00 98.4 54 18 164/81 (108) 100 11/14/17 07:59 98 Nasal Cannula 3.00 I/O 11/14/17 11/14/17 11/14/17 11/15/17 11/15/17 11/15/17 07:00 15:00 23:00 07:00 15:00 23:00 Intake Total 200 ml 200 ml 250 ml 0 ml Output Total 2550 ml 3600 ml 750 ml Balance -2350 ml 200 ml -3350 ml -750 ml Intake Oral 0 ml 0 ml IV Total 200 ml 200 ml 200 ml Tube Irrigant 50 ml Output Urine Total 2550 ml 3600 ml 750 ml Drainage Total 0 ml # Bowel Movements 1 0 0 Result Diagram: 11/15/17 0333 11/15/17 0333 Imaging Last Impressions Abdomen Ultrasound 11/14/17 0000 Signed Impressions: Service Date/Time: October 07:56 - CONCLUSION: 1. There is elevated velocity within the proximal SMA which raises the possibility of a focal stenosis. 2. The vessels imaged and appear to be patent. Yo Joiner MD Chest X-Ray 11/13/17 0000 Signed Impressions: Service Date/Time: Monday, November 13, 2017 16:42 - CONCLUSION: Mild compensated cardiomegaly otherwise negative Gamal Zamudio MD FACR Abdomen/Pelvis CT 11/10/17 0601 Signed Impressions: Service Date/Time: Friday, November 10, 2017 07:44 - CONCLUSION: 1.Focal abnormal circumferential wall thickening involving the descending colon at the level of the hepatic flexure with significant adjacent fluid tracking within the right paracardiac color. Given the extensive atherosclerosis and focal finding concern is for possible infarct. Infection is also within the differential diagnosis. 2. Interval placement of a right-sided percutaneous nephrostomy tube. Stable appearance of the right kidney with multiple renal stones. Josefa Hair MD Head CT 11/10/17 0000 Signed Impressions: Service Date/Time: Friday, November 10, 2017 11:22 - CONCLUSION: Stable exam. No acute abnormality.. Josefa Hair MD Objective Remarks GENERAL: The patient is reading, chronically ill. Acute distress with shortness of breath. SKIN: Warm and dry. HEAD: Normocephalic. EYES: No scleral icterus. No injection or drainage. NECK: Supple, trachea midline. No JVD or lymphadenopathy. CARDIOVASCULAR: Regular rate and rhythm without murmurs, gallops, or rubs. RESPIRATORY: Shortness of breath, in acute distress, labored breathing, positive rhonchi, some accessory muscle use. GASTROINTESTINAL: Abdomen soft, non-tender, nondistended. MUSCULOSKELETAL: No cyanosis, or edema. NEURO: Slurred speech, very limited conversive vocabulary, left wrist is chronically clenched BACK: Nontender without obvious deformity. No CVA tenderness. A/P Problem List: (1) UTI (urinary tract infection) ICD Code: N39.0 - Urinary tract infection, site not specified (2) Encephalopathy acute ICD Code: G93.40 - Encephalopathy, unspecified (3) Leukocytosis ICD Code: D72.829 - Elevated white blood cell count, unspecified (4) Abnormal CT scan ICD Code: R93.8 - Abnormal findings on diagnostic imaging of other specified body structures (5) SIMBA (acute kidney injury) ICD Code: N17.9 - Acute kidney failure, unspecified (6) Diabetes ICD Code: E11.9 - Type 2 diabetes mellitus without complications (7) Severe sepsis ICD Code: A41.9 - Sepsis, unspecified organism; R65.20 - Severe sepsis without septic shock Assessment and Plan 62-year-old white female admitted from a long-term facility for sepsis and acute hypoxic respiratory failure Acute hypoxic and hypercarbic respiratory failure requiring BIPAP . Resolving Aspiration pneumonia, resolving Acute metabolic encephalopathy, resolving noted on 11/13 Patient is noted with labored breathing. and was on bipap Continue IV abx DC pain meds advance per ST. Do calorie count Patient is refusing PG tube Sepsis likely secondary to UTI and/or colitis/ aspiration PNA - BCs pending, UC pending, abx pending Possible UTI -Continue Zosyn and Flagyl -Appears to show colonization Colitis -Infectious versus ischemic dylan given radiology read concerning for infarct -Continue antibiotics as above -aspirin, Lipitor, -Independently reviewed EKG and I see no A. 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 CT head is negative for any acute findings. -improving Aspiration risks -Likely from prior CVA, speech therapy has concluded patient is not a candidate for p.o. intake. Tube feeds is safest option, placing dietitian consult and notifying palliative care to help assess goals of care especially with son's input SIMBA on CKD -IVFs, improving -BMP in AM hx of CVA -aspirin, starting lipitor home metoprolol heparin Discharge Planning candidate for hospice at long-term living facility. pallpiative care ff Patient is full code however Joseph count advance diet per ST recs. Patient is refusing PEG placement Problem Qualifiers (1) Diabetes: Qualified Codes: E11.65 - Type 2 diabetes mellitus with hyperglycemia; Z79.4 - skilled nursing (current) use of insulin Dafne Louis MD November 15, 2017 07:29
[2017-11-15] MEDS: METOPROLOL TARTRATE 25 MG TAB PO SCH ×2 (09:00→21:08)
[2017-11-15] MEDS: SODIUM CHLORIDE 0.9% FLUSH 10 ML FLUSH IV FLUSH SCH ×2 (09:00→21:11)
--- NOTE | 2017-11-15 09:43 | HHI.GIFU ---
Subjective Remarks Pt awake and able to answer some questions States she does not want a feeding tube TF currently running through NGT- Glucerna at 30 mL/hr Would like to try to eat Denies abdominal pain (Teresa Martinez) Objective Vitals I&O Vital Signs Date Time Temp Pulse Resp B/P (MAP) Pulse Ox O2 Delivery O2 Flow Rate FiO2 11/15/17 07:35 98.0 66 18 153/72 (99) 98 11/15/17 04:00 98.4 66 20 152/68 (96) 95 11/15/17 03:56 57 11/15/17 00:11 64 11/15/17 00:00 98.0 67 18 139/67 (91) 97 11/14/17 20:00 99.0 86 20 160/82 (108) 98 11/14/17 20:00 66 11/14/17 20:00 Nasal Cannula 2.00 11/14/17 18:01 Nasal Cannula 3.00 11/14/17 18:00 62 11/14/17 17:37 98.7 75 19 168/74 (105) 100 11/14/17 16:00 59 11/14/17 16:00 98.4 59 20 148/70 (96) 100 11/14/17 12:00 98.3 73 16 164/77 (106) 100 11/14/17 12:00 76 11/14/17 10:00 75 11/14/17 09:53 18 I/O 11/14/17 11/14/17 11/14/17 11/15/17 11/15/17 11/15/17 07:00 15:00 23:00 07:00 15:00 23:00 Intake Total 200 ml 200 ml 300 ml 250 ml Output Total 2550 ml 3600 ml 750 ml Balance -2350 ml 200 ml -3300 ml -500 ml Intake Oral 0 ml 0 ml IV Total 200 ml 200 ml 250 ml 250 ml Tube Irrigant 50 ml Output Urine Total 2550 ml 3600 ml 750 ml Drainage Total 0 ml # Bowel Movements 1 0 0 Laboratory Laboratory Tests Test 11/14/17 12:15 11/15/17 03:33 Blood Gas Puncture Site RT RADIAL Blood Gas Patient Temperature 98.6 Blood Gas HCO3 25 Blood Gas Base Excess 0.2 Blood Gas Oxygen Saturation 97 Arterial Blood pH 7.36 Arterial Blood Partial Pressure CO2 45 Arterial Blood Partial Pressure O2 129 Arterial Blood Oxygen Content 14.1 Arterial Blood Carboxyhemoglobin 1.2 Arterial Blood Methemoglobin 1.0 Blood Gas Hemoglobin 10.1 Oxygen Delivery Device NASAL CANNULA Blood Gas Liter Flow 3 White Blood Count 20.3 Red Blood Count 4.11 Hemoglobin 10.5 Hematocrit 33.9 Mean Corpuscular Volume 82.4 Mean Corpuscular Hemoglobin 25.6 Mean Corpuscular Hemoglobin Concent 31.1 Red Cell Distribution Width 18.2 Platelet Count 307 Mean Platelet Volume 9.0 Blood Urea Nitrogen 49 Creatinine 2.43 Random Glucose 172 Calcium Level 8.8 Sodium Level 150 Potassium Level 3.6 Chloride Level 114 Carbon Dioxide Level 24.8 Anion Gap 11 Estimat Glomerular Filtration Rate 20 Date/Time Source Procedure Growth Status 11/10/17 06:15 Blood Peripheral Aerobic Blood Culture - Preliminary NO GROWTH IN 4 DAYS Resulted 11/10/17 06:15 Blood Peripheral Anaerobic Blood Culture - Preliminary NO GROWTH IN 4 DAYS Resulted 11/10/17 06:20 Urine Catheterized Urine Urine Culture - Final Pseudomonas Aeruginosa Multi-Drug Resistant Escherichia Coli Esbl Positive Enterococcus Faecalis Complete Imaging Last Impressions Abdomen Ultrasound 11/14/17 0000 Signed Impressions: Service Date/Time: October 07:56 - CONCLUSION: 1. There is elevated velocity within the proximal SMA which raises the possibility of a focal stenosis. 2. The vessels imaged and appear to be patent. Yo Joiner MD Chest X-Ray 11/13/17 0000 Signed Impressions: Service Date/Time: Monday, November 13, 2017 16:42 - CONCLUSION: Mild compensated cardiomegaly otherwise negative Gamal Zamudio MD FACR Abdomen/Pelvis CT 11/10/17 0601 Signed Impressions: Service Date/Time: Friday, November 10, 2017 07:44 - CONCLUSION: 1.Focal abnormal circumferential wall thickening involving the descending colon at the level of the hepatic flexure with significant adjacent fluid tracking within the right paracardiac color. Given the extensive atherosclerosis and focal finding concern is for possible infarct. Infection is also within the differential diagnosis. 2. Interval placement of a right-sided percutaneous nephrostomy tube. Stable appearance of the right kidney with multiple renal stones. Josefa Hair MD Head CT 11/10/17 0000 Signed Impressions: Service Date/Time: Friday, November 10, 2017 11:22 - CONCLUSION: Stable exam. No acute abnormality.. Josefa Hair MD Physical Exam HEENT: Normocephalic; atraumatic CHEST: Coarse BS ABDOMEN: Distended, soft, nontender, bowel sounds active SKIN: Normal; no rash; no jaundice. FIELD SERVICE REPRESENTATIVE: Awake, answers some questions (Teresa Martinez) Assessment and Plan Plan Assessment: - Colitis- infectious vs ischemic- unable to obtain history from patient CT abdomen and pelvis W/O IV contrast (11/10) --> Focal abnormal circumferential wall thickening involving the descending colon at the level of the hepatic flexure with significant adjacent fluid tracking within the right paracardiac color. Given the extensive atherosclerosis and focal finding concern is for possible infarct. Infection is also within the differential diagnosis. Interval placement of a right-sided percutaneous nephrostomy tube. Stable appearance of the right kidney with multiple renal stones. Febrile with leukocytosis C diff stool ordered by GS, pt started on IV Flagyl and Zosyn - Anemia, microcytic, hypochromic- hgb 10 in July Colonoscopy (11/12) --> Severe diverticulosis in the sigmoid and descending colon. Poor prep. Biopsy from descending colon. Internal and external hemorrhoids. Pathology ( descending colon) focal acute colitis with non-specific features. (11/14) Pt remains in ICU, respiratory status seems to be improving on NC. She still has NGT to R nostril, not receiving any feedings at this time. MACHINE PECAN PICKER has recommended NPO Abdominal US with mesenteric vessels --> There is elevated velocity within the proximal SMA which raises the possibility of a focal stenosis. The vessels imaged and appear to be patent. H/H is improving, last transfusion on the . No obvious source of GIB. Iron panel: Iron-13 TIBC-155 %sat-8.4 Ferritin-328 (transfused on the ) TSH WNL. Leukocytosis noted- pt on Zosyn and Flagyl (11/15) Pt much more alert today, able to answer some questions. States she does not want a feeding tube. She was on a pureed diet prior to coming to the hospital. Will have speech therapy reassess patient to see if she is able to tolerate pureed diet. Increase in leukocytosis today, afebrile, pt on Zosyn and Flagyl H/H with some improvement today Palliative following and note states that son wishes for aggressive care and would be agreeable to PEG tube if that is indicated Plan: MACHINE PECAN PICKER to reassess- pt more alert now Following for possible need for PEG however pt hoping to avoid this Monitor H/H- seems to be improving Zosyn and Flagyl- pathology consistent with acute colitis Supportive care Further recommendations based on clinical course Pt has been seen and examined by myself and Dr. Donahue and this note is written on her behalf (Teresa Martinez) Teresa Martinez November 15, 2017 09:43 Maura Donahue MD November 15, 2017 18:49
[2017-11-15] MEDS: GABAPENTIN 100 MG CAP PO SCH ×2 (10:11→21:08)
[2017-11-15] MEDS: risperiDONE 0.5 MG TAB PO SCH ×3 (10:12→18:00)
[2017-11-15] MEDS: ASPIRIN EC 81 MG TABEC PO SCH (10:12)
[2017-11-15] MEDS: SERTRALINE HCL 50 MG TAB PO SCH (10:12)
--- NOTE | 2017-11-15 12:03 | EKG ---
Date Performed: 11/13/2017 Time Performed: 16:32:18 PTAGE: 62 years EKG: Sinus tachycardia with sinus arrhythmia. Poor R wave progression - probable normal variant Lateral ST-T changes may be due to myocardial ischemia Low QRS voltages in precordial leads Abnormal ECG PREVIOUS TRACING : 11/11/2017 11.07 DOCTOR: Glory Grande Interpretating Date/Time 11/15/2017 11:53:56
[2017-11-15] MEDS: ATORVASTATIN 40 MG TAB PO SCH (21:08)
[2017-11-16] VITALS (11 sets, daily range): BP systolic 136–160; BP diastolic 60–86; PULSE 58–81; RESP 16–20; TEMP 97.4–99; O2SAT 98–100
[2017-11-16] MEDS: metroNIDAZOLE 500 MG INJ 100 ML IV SCH ×4 (00:46→18:29)
[2017-11-16] MEDS: PIPERACIL-TAZO 2.25 GM PREMIX 50 ML IV SCH ×3 (05:20→21:36)
[2017-11-16] MEDS ORDERED: FUROSEMIDE 40 MG/4 ML VIAL ONE (06:48)
--- NOTE | 2017-11-16 06:51 | HHI.PR ---
Addendum to Inpatient Note Addendum Reason: Additional Documentation Additional Information Halicat [id number]-old white female with past medical history of CVA, schizophrenia admitted for sepsis due to UTI and colitis Resident team received call for a Halicat at 0623. Upon entering the patient's room the team was informed by nursing staff that patient had become tachypneic about 15-20 minutes earlier. She was placed on nonrebreather mask. Of note, she had a previous Halicat on 11/13 for the same symptoms. She was diagnosed with aspiration pneumonia and transferred to the ICU and was transferred back to the floor on the . Nursing staff informed us that patient is usually nonverbal but sometimes answers yes or no questions. When I asked if she had any pain, she said no. She shook her head yes when asked if she was having trouble breathing. O: V/S BP 164/80, HR 118, O2 saturation 99% on nonrebreather mask General: Obese white female laying in bed with increased work of breathing on nonrebreather mask Cardio: Tachycardic, regular rhythm Respiratory: Coarse breath sounds diffusely Extremities: 2+ pitting edema to above knee level laterally A/P: CXR was relatively normal ABG pH 7.28/PO2 337 (on nonrebreather mask)/PCO2 61/HCO3 27 Ordered Lasix 40 mg IV Ordered BiPAP Transfer to ICU Spoke with Dr. Murcia who agreed with her transfer SDW Berenice Broussard MD R1 November 16, 2017 06:51
--- NOTE | 2017-11-16 06:53 | RADRPT ---
EXAM DATE/TIME: 11/16/2017 06:31 [facility] COMPARISON: CHEST SINGLE AP, November 13, 2017, 16:42. INDICATIONS : Shortness of breath. MEDICAL HISTORY : Cerebrovascular disease. A-fib SURGICAL HISTORY : Hysterectomy. ENCOUNTER: Subsequent ACUITY: 4 - 6 days PAIN SCORE: Non-responsive. LOCATION: Bilateral chest FINDINGS: A single view of the chest demonstrates nasogastric tube entering stomach. Minimal basilar atelectasi s. No effusion or pneumothorax. Heart size within normal limits. CONCLUSION: 1. NG enters stomach. Minimal basilar atelectasis. Pascual Jennings MD on November 16, 2017 at 6:50 Board Certified Radiologist. This report was verified electronically.
--- NOTE | 2017-11-16 07:43 | HHI.CCPN ---
Subjective Remarks/Hospital Course This is a 62yF with history of stroke and admitted for acute colitis and multi- organism UTI. She has a history of dysphagia and was currently NPO on tube feeding. Today she had sudden onset of acute hypoxia with spo2 82% on nc o2. she was placed on NRB. She has noted ronchi bilaterally. she has significant edema and grossly appears volume overloaded. she was admitted with Cr >3 and has been gently diuresed and SIMBA is slowly improving. rapid response was called and she was emergently transferred to the ICU. due to her current mental status (and reported baseline mental status), no additional information is obtainable from the patient, and she only moans. ABG demonstrates severe respiratory acidosis. I attempted to contact her son and medical decision maker but was unable to reach him. Palliative care is following and has also not been able to reach him today. ROS unobtainable. 11/14: respiratory status improving. acute hypercarbic failure resolved. on 3L nc. mental status back to baseline. lungs are much clearer today. Subjective 11/16: LALA hand transferred to intensive care unit due to acute hypoxemia/ hypercapnic respiratory failure on the floor. Patient received 40 mg furosemide and was placed on noninvasive ventilation by hospitalist overnight. Eyes are open. Patient has chronic weakness in left upper extremity and lower extremity secondary to a right MCA CVA several years ago. Admitted with abdominal pain. Sigmoid endoscopy revealed colitis. C. difficile is still pending. Possible SMA stenosis on imaging however evaluated by Dr. Guerrero that he is to be a surgical abdomen at this time.. Currently seen on BiPAP and follows commands with right upper lower extremities. Objective Vital Signs Date Time Temp Pulse Resp B/P (MAP) Pulse Ox O2 Delivery O2 Flow Rate FiO2 11/16/17 04:00 98.3 81 20 160/86 (110) 100 11/15/17 20:15 Nasal Cannula 2.00 11/15/17 08:00 35 Intake and Output 11/16/17 11/16/17 11/17/17 08:00 16:00 00:00 Output Total 1300 ml Balance -1300 ml Result Diagram: 11/15/17 0333 11/15/17 0333 Other Results Microbiology Date/Time Source Procedure Growth Status 11/10/17 06:15 Blood Peripheral Aerobic Blood Culture - Final NO GROWTH IN 5 DAYS Complete 11/10/17 06:15 Blood Peripheral Anaerobic Blood Culture - Final NO GROWTH IN 5 DAYS Complete 11/10/17 06:20 Urine Catheterized Urine Urine Culture - Final Pseudomonas Aeruginosa Multi-Drug Resistant Escherichia Coli Esbl Positive Enterococcus Faecalis Complete Imaging Last Impressions Chest X-Ray 11/16/17 0000 Signed Impressions: Service Date/Time: Thursday, November 16, 2017 06:31 - CONCLUSION: 1. NG enters stomach. Minimal basilar atelectasis. Pascual Jennings MD Abdomen Ultrasound 11/14/17 0000 Signed Impressions: Service Date/Time: October 07:56 - CONCLUSION: 1. There is elevated velocity within the proximal SMA which raises the possibility of a focal stenosis. 2. The vessels imaged and appear to be patent. Yo Joiner MD Abdomen/Pelvis CT 11/10/17 0601 Signed Impressions: Service Date/Time: Friday, November 10, 2017 07:44 - CONCLUSION: 1.Focal abnormal circumferential wall thickening involving the descending colon at the level of the hepatic flexure with significant adjacent fluid tracking within the right paracardiac color. Given the extensive atherosclerosis and focal finding concern is for possible infarct. Infection is also within the differential diagnosis. 2. Interval placement of a right-sided percutaneous nephrostomy tube. Stable appearance of the right kidney with multiple renal stones. Josefa Hair MD Head CT 11/10/17 0000 Signed Impressions: Service Date/Time: Friday, November 10, 2017 11:22 - CONCLUSION: Stable exam. No acute abnormality.. Josefa Hair MD Objective Remarks GENERAL: 62-year-old female with mild respiratory distress SKIN: Warm and dry. Well healed sacral/heel ulcers HEAD: Atraumatic. Normocephalic. EYES: Pupils equal and round 3 mm reactive to 2 bilaterally. No scleral icterus. No injection or drainage. ENT: No nasal bleeding or discharge. Mucous membranes pink and moist. NG tube in left nares NECK: Trachea midline. No JVD. CARDIOVASCULAR: Tachycardic in a sinus arrhythmia. S1, S2. No S4, S3. Without murmur. RESPIRATORY: Diffuse coarse rhonchorous breath sounds appreciated anteriorly posteriorly. No accessory muscle use. GASTROINTESTINAL: Abdomen soft, non-tender, nondistended. Hepatic and splenic margins not palpable. MUSCULOSKELETAL: Extremities 1+ bilateral lower extremity edema. No obvious deformities. : Right nephrostomy tube in place with drainage NEUROLOGICAL: Awake and alert. Patient has weakness in left upper lower extremity with contracted left upper extremity. Follows commands with right upper extremities. Urinary Catheter: Yes Assessment to: Continue Rebolledo insert reason: Prolonged Immobilization Vascular Central Line Catheter: No Assessment to: Continue A/P Assessment and Plan Neuro/Psych: Bipolar/schizophrenia History of right MCA CVA with left-sided weakness Chronic narcotic/opioid use with oxycodone/acetaminophen Acetaminophen 650 mg by tube every 6 hours as needed fever/pain Use Ofirmev 1 g IV every 8 hours if n.p.o. Currently on Risperdal 0.5 mg by tube 3 times daily. Continue Continue gabapentin 100 mg twice daily CV: Essential hypertension Hyperlipidemia Coronary artery disease with stents to the RCA and LAD Continue aspirin 81 mg p.o. daily 2D echocardiogram 2049 revealed EF 60-65%. No regional wall motion abnormality. Mild TR. Pulmonary arterial pressure 37 mmHg Continue metoprolol tartrate 25 mg p.o. twice daily. Holding home medication hydralazine 50 mg p.o. 3 times daily. Resume when clinically indicated Resp: Acute hypoxic hypercapnic respiratory failure secondary to aspiration Titrate FiO2/oxygen to maintain saturations greater than or equal to 92% Incentive spirometry while awake Chest x-ray revealed bilateral lower lobe atelectasis. No focal infiltrates and /or effusions. Patient is currently on noninvasive ventilation 04/04 at 50%. Recheck arterial blood gas in 2 hours. Aggressive pulmonary toilet including albuterol/ipratropium aerosols every 6 hours with albuterol aerosols 2 hours as needed dyspnea Chest x-ray in a.m. 11/17 GI: Aspiration Gastroesophageal reflux disease Sigmoid diverticulosis Pancolitis Internal and external hemorrhoids Currently on lansoprazole 30 mg by tube daily. On omeprazole 20 mg daily at home Docusate sodium 100 mg twice daily, senna 8.8 mg twice daily, polyethylene glycol 17 g daily and lactulose 30 cc daily for bowel regimen. No bowel movements for 48 hours. Check KUB Currently on honey thickened/pured diet. Will make n.p.o. at the present time and order a modified barium swallow with speech therapy Patient had sigmoidoscopy endoscopy 11/15 revealed sigmoid diverticulosis, pancolitis with internal and external hemorrhoids. CT abdomen/pelvis revealed descending colon wall thickening. Atherosclerotic vascular disease. Right hydronephrosis. Atrophic left kidney. Evaluated by general surgery/Dr. Guerrero that he is to be a surgical abdomen. Noted high velocities in SMA. Cannot anticoagulate due to history of bleeding : Status post right nephrostomy tube Nephrolithiasis with right hydronephrosis Renal ultrasound revealed atrophic left kidney with right hydronephrosis with pigtail in place/nephrostomy tube Endo: Diabetes mellitus type 2 Holding insulin detemir 7 units at night. Sliding-scale insulin with Novolin R with Accu-Cheks every 6 hours to maintain euglycemia/low regimen Renal: Acute kidney injury in the setting of chronic kidney disease stage III a Right hydronephrosis status post right nephrostomy tube Right nephrolithiasis Maintain nephrostomy tube Monitor urine output Accurate I's and O's A.m. BMP pending Heme: Leukocytosis Normocytic anemia Monitor CBC daily. Follow trends. No indication for transfusion of blood products at this time. Follow-up coags ID: Multidrug-resistant ESBL positive E. coli/multidrug-resistant Pseudomonas and Enterococcus faecalis UTI likely contaminant Currently of piperacillin/tazobactam and metronidazole IV. Blood cultures 2 on admission were no growth today. Urine revealed ESBL positive E. coli. We will replete blood cultures 2, urine and sputum today. FEN: Hypernatremia We will place on half normal saline at 50 cc normal n.p.o. A.m. laboratories all pending MSK: Well healed Sacral decubitus/heel ulcers Wound care evaluation and treat Access -Utilize peripheral IV. Central line if indicated Prophylaxis -GI -lansoprazole -DVT -SCD/holding pharmacological prophylaxis in light of history of hematuria on TSOAC Level 2 follow-up Carlos Murcia MD November 16, 2017 07:43
[2017-11-16] MEDS ORDERED: RESP: ALBUTEROL 2.5 MG/3 ML NEB (PRN) NEB (07:45)
[2017-11-16] MEDS ORDERED: GLUCAGON 1 MG/ML VIAL OTHER PRN (07:45)
[2017-11-16] MEDS ORDERED: DEXTROSE 50% IN WATER 50 ML VIAL(D50) IV PUSH PRN (07:45)
[2017-11-16] MEDS: hydrALAZINE HCL 20 MG/ML VIAL IV PUSH PRN (07:56)
[2017-11-16] MEDS ORDERED: ACETAMINOPHEN 1000 MG/100 ML 100 ML IV PRN (08:00)
[2017-11-16] MEDS: SODIUM CHLOR 0.45% 1000 ML INJ 1,000 ML IV SCH (08:15)
[2017-11-16] MEDS: RESP: ALBUTEROL 2.5 MG/IPRATROPIUM 0.5 MG NEB (SCH) NEB ×3 (08:50→20:40)
[2017-11-16] MEDS: LACTULOSE SYRUP 20 GM/30 ML CUP PO SCH (09:00)
[2017-11-16] MEDS: DOCUSATE SODIUM 100 MG/10 ML UDC PO SCH ×2 (09:00→21:00)
[2017-11-16] MEDS: SODIUM CHLORIDE 0.9% FLUSH 10 ML FLUSH IV FLUSH SCH ×2 (09:00→21:00)
[2017-11-16] MEDS: MUPIROCIN 2% OINT 1 APPLIC/GM SYR EACH NARE SCH ×2 (09:00→21:34)
[2017-11-16] MEDS: SENNOSIDES SYRUP 8.8 MG/5 ML CUP PO SCH ×2 (09:00→21:00)
[2017-11-16] MEDS: ARTIFICIAL TEARS OPTH SOLN 15 ML BTL EACH EYE SCH ×2 (09:00→21:00)
[2017-11-16] MEDS: ASPIRIN EC 81 MG TABEC PO SCH (09:00)
[2017-11-16] MEDS: POLYETHYLENE GLYCOL 17 GM PKG PO SCH (09:00)
--- NOTE | 2017-11-16 09:07 | RADRPT ---
EXAM DATE/TIME: 11/16/2017 08:03 [facility] COMPARISON: ABDOMEN KUB ONLY, April 15, 2015, 11:44. INDICATIONS : Confirm NGT placement. MEDICAL HISTORY : Cerebrovascular disease. A-fib SURGICAL HISTORY : Hysterectomy. ENCOUNTER: Subsequent ACUITY: 1 day PAIN SCORE: Non-responsive. LOCATION: Abdomen. FINDINGS: Frontal view of the right upper abdomen demonstrates gastric tube tip and side port projected within the stomach. Right pigtail stent is also in place. The visualized lower lungs are clear. CONCLUSION: Gastric tube tip and side-port project within the stomach. Chetan Betlre MD on November 16, 2017 at 9:05 Board Certified Radiologist. This report was verified electronically.
--- NOTE | 2017-11-16 10:03 | RADRPT ---
EXAM DATE/TIME: 11/16/2017 08:49 [facility] COMPARISON: US LEG BILATERAL VENOUS DOPPLER, April 16, 2015, 17:45. INDICATIONS : Bilateral leg swelling. MEDICAL HISTORY : Hypertension. Cerebrovascular accident. Confusion. Afib. Coronary artery disease. Headache. Kidney stones. Schizophrenia. Bipolar disorder. Depression. Anxiety. MRSA. VRE. SURGICAL HISTORY : Coronary artery stent.Tonsillectomy. Hysterectomy. section. ENCOUNTER: Initial ACUITY: 1 day PAIN SCORE: 0/10 LOCATION: Bilateral legs. TECHNIQUE: Venous ultrasound of the left and right leg was performed from the inguinal ligament to the proximal calf. Real-time, color Doppler and spectral tracing, compression and augmentation techniques were us ed. FINDINGS: RIGHT LEG: There is normal compressibility of the deep venous system from the inguinal region to the proximal ca lf. No echogenic clot is seen in the lumen of the common femoral, femoral, popliteal, and posterior tibial veins. There is a normal response of the venous system to proximal and distal augmentation an d respiration. LEFT LEG: There is normal compressibility of the deep venous system from the inguinal region to the proximal ca lf. No echogenic clot is seen in the lumen of the common femoral, femoral, popliteal, and posterior tibial veins. Assessment with augmentation was not feasible.. CONCLUSION: No evidence of deep venous thrombosis in either lower extremity. Chetan Beltre MD on November 16, 2017 at 9:51 Board Certified Radiologist. This report was verified electronically.
[2017-11-16 10:11] LABS: BILIRUBIN, URINE NEGATIVE (NEG); GLUCOSE,URINE NEG (NEG); KETONE, URINE NEG (NEG); URINE COLOR RED (YELLW/STRAW)
[2017-11-16 10:12] LABS: BLOOD, URINE LARGE (NEG); NITRITE,URINE NEG (NEG); URINE LEUKOCYTE ESTERASE LARGE (NEG)
[2017-11-16 10:13] LABS: BACTERIA, URINE MOD /hpf; SQUAMOUS EPITHELIAL CELL URINE 5 /hpf (0-5); WHITE BLOOD CELL CLUMPS OCC
[2017-11-16 10:32] LABS: INTERNATIONAL NORMALIZED RATIO 1.1 RATIO; PROTHROMBIN TIME - PATIENT 11.4 SEC (9.8-11.6)
[2017-11-16] MEDS: METOPROLOL TARTRATE 25 MG TAB PO SCH ×2 (10:37→21:00)
[2017-11-16] MEDS: SERTRALINE HCL 50 MG TAB PO SCH (10:37)
[2017-11-16] MEDS: GABAPENTIN 100 MG CAP PO SCH ×2 (10:38→21:33)
[2017-11-16] MEDS: LANSOPRAZOLE SOLUTAB 30 MG TAB NG SCH (10:38)
[2017-11-16] MEDS ORDERED: fentaNYL DRIP 250 ML IV PRN (10:45)
[2017-11-16] MEDS ORDERED: ETOMIDATE 40 MG/20 ML VIAL IV PUSH ONE (10:45)
[2017-11-16] MEDS ORDERED: PROPOFOL 1000 MG/100 ML INJ 100 ML IV PRN (10:45)
[2017-11-16] MEDS ORDERED: ROCURONIUM INJ 100 MG/10 ML VIAL IV ONE (10:45)
[2017-11-16] MEDS ORDERED: ETOMIDATE 40 MG/20 ML VIAL ONE (10:46)
[2017-11-16] MEDS ORDERED: ROCURONIUM INJ 50 MG/5 ML VIAL ONE (10:47)
[2017-11-16 10:51] LABS: CHOLESTEROL 110 MG/DL (120-200)
[2017-11-16 10:54] LABS: CORTISOL 42.9 MCG/DL
[2017-11-16 11:00] LABS: CHOLESTEROL/ HDL RATIO 5.18 RATIO; HDL CHOLESTEROL 21.2 MG/DL (40.0-60.0); LDL CHOLESTEROL 51 MG/DL (0-99); TRIGLYCERIDES 189 MG/DL (42-150); TROPONIN I 0.09 NG/ML (0.02-0.05)
--- NOTE | 2017-11-16 11:18 | EKG ---
Date Performed: 11/16/2017 Time Performed: 09:05:16 PTAGE: 62 years EKG: Sinus rhythm NONSPECIFIC T-WAVE ABNORMALITY BORDERLINE ECG PREVIOUS TRACING : 11/13/2017 16.32 Since the previous tracing, no significant change noted DOCTOR: Popeye Schultz Interpretating Date/Time 11/16/2017 11:15:48
[2017-11-16 11:29] LABS: HEMOGLOBIN A1C 6.1 % (4.3-6.0)
[2017-11-16 11:36] LABS: BASOPHIL # 0.1 TH/MM3 (0-0.2); BASOPHIL % 0.2 % (0.0-2.0); EOSINOPHIL # 0.1 TH/MM3 (0-0.4); EOSINOPHIL % 0.4 % (0.0-4.0); HEMATOCRIT 34.2 % (35.0-46.0); HEMOGLOBIN 10.6 GM/DL (11.6-15.3); LYMPH % 9.3 % (9.0-44.0); LYMPHOCYTE # 2.5 TH/MM3 (1.0-4.8); MEAN CELL VOLUME 83.3 FL (80.0-100.0); MEAN CORPUSCULAR HEMOGLOBIN 25.9 PG (27.0-34.0); MEAN PLATELET VOLUME 8.9 FL (7.0-11.0); MONO % 3.8 % (0.0-8.0); NEUT % 86.3 % (16.0-70.0); PLATELET COUNT 351 TH/MM3 (150-450); RED BLOOD COUNT 4.11 MIL/MM3 (4.00-5.30); RED CELL DISTRIBUTION WIDTH 17.8 % (11.6-17.2); WHITE BLOOD COUNT 26.7 TH/MM3 (4.0-11.0)
--- NOTE | 2017-11-16 11:55 | RADRPT ---
EXAM DATE/TIME: 11/16/2017 11:08 [facility] COMPARISON: CHEST SINGLE AP, November 16, 2017, 6:31. INDICATIONS : Intubation. MEDICAL HISTORY : Cerebrovascular disease. A-fib SURGICAL HISTORY : Hysterectomy. ENCOUNTER: Subsequent ACUITY: 1 week PAIN SCORE: Non-responsive. LOCATION: Bilateral chest FINDINGS: Timeline endotracheal tube tip well above the moises. Gastric tube traverses the [id number]. The lungs are symmetrically aerated and clear. The heart is normal in size. moderate curvature thoraci c spine convex to the right, stable. CONCLUSION: 1. ET tube in good position. 2. The lungs are clear. Chetan Beltre MD on November 16, 2017 at 11:52 Board Certified Radiologist. This report was verified electronically.
[2017-11-16] MEDS: INSULIN NovoLIN REGULAR SUPPLEMENTAL SCALE SQ SCH ×2 (12:00→17:40)
[2017-11-16 12:04] LABS: BLOOD UREA NITROGEN 46 MG/DL (7-18); CALCIUM 8.7 MG/DL (8.5-10.1); CHLORIDE 115 MEQ/L (98-107); CREATININE 2.24 MG/DL (0.50-1.00); GLOMERULAR FILTRATION RATE 22 ML/MIN (>89); GLUCOSE,RANDOM 231 MG/DL (74-106); MAGNESIUM 1.8 MG/DL (1.5-2.5); SODIUM (NA) 152 MEQ/L (136-145)
[2017-11-16 12:05] LABS: AST (GOT) 16 U/L (15-37); PHOSPHORUS 2.9 MG/DL (2.5-4.9)
[2017-11-16 12:06] LABS: BANDS 5 % (0-6); LYMPHOCYTES 10 % (9-44); METAMYELOCYTES 2 % (0-1); MONOCYTES 2 % (0-8); MYELOCYTES 2 % (0-0); NEUTROPHIL # MANUAL DIFF 23.5 TH/MM3 (1.8-7.7); POLYS (SEG NEUTROPHILS) 79 % (16-70); TOTAL BILIRUBIN ADULT 0.4 MG/DL (0.2-1.0); TOTAL PROTEIN 8.4 GM/DL (6.4-8.2)
[2017-11-16 12:22] LABS: ALT (GPT) 11 U/L (10-53); BICARBONATE 26.7 MEQ/L (21.0-32.0)
[2017-11-16 12:24] LABS: ALKALINE PHOSPHATASE 85 U/L (45-117)
[2017-11-16] MEDS ORDERED: POTASSIUM CHLORIDE 20 MEQ PWD PACKET PO ONE (14:00)
[2017-11-16] MEDS ORDERED: MAGNESIUM SULFATE 1 GM PREMIX 100 ML IV ONE (14:00)
--- NOTE | 2017-11-16 15:19 | HHI.GIFU ---
Subjective Remarks Pt was transferred to ICU, now orally intubated Discussed with Dr. Murcia Was Halicat for respiratory distress, likely secondary to aspiration (Teresa MartinezP) Objective Vitals I&O Vital Signs Date Time Temp Pulse Resp B/P (MAP) Pulse Ox O2 Delivery O2 Flow Rate FiO2 11/16/17 12:26 50 11/16/17 12:00 98.0 69 16 137/60 (85) 100 11/16/17 12:00 60 11/16/17 11:48 100 50 11/16/17 08:00 98.1 72 20 156/76 (102) 100 Manual Cuff/Auscultation 11/16/17 07:36 98 30 11/16/17 07:36 98 BiPAP 30 11/16/17 04:00 98.3 81 20 160/86 (110) 100 11/16/17 03:41 73 11/16/17 00:00 97.4 61 19 158/72 (100) 99 11/15/17 23:41 61 11/15/17 20:15 Nasal Cannula 2.00 11/15/17 20:00 98.1 65 17 162/84 (110) 100 11/15/17 19:44 57 11/15/17 16:19 98.3 67 20 178/79 (112) 96 I/O 11/15/17 11/15/17 11/15/17 11/16/17 11/16/17 11/16/17 07:00 15:00 23:00 07:00 15:00 23:00 Intake Total 250 ml 1210 ml Output Total 750 ml 850 ml 1300 ml Balance -500 ml 360 ml -1300 ml Intake Oral 0 ml 120 ml IV Total 250 ml 250 ml Tube Feeding 480 ml Other 360 ml Output Urine Total 750 ml 850 ml 1300 ml # Bowel Movements 0 0 Laboratory Laboratory Tests Test 11/15/17 16:11 11/16/17 06:25 11/16/17 06:46 11/16/17 08:40 Lactic Acid Level 0.7 Blood Gas Puncture Site LT RADIAL Blood Gas Patient Temperature 98.6 Blood Gas HCO3 27 Blood Gas Base Excess 1.2 Blood Gas Oxygen Saturation 98 Arterial Blood pH 7.28 Arterial Blood Partial Pressure CO2 61 Arterial Blood Partial Pressure O2 337 Arterial Blood Oxygen Content 15.6 Arterial Blood Carboxyhemoglobin 1.1 Arterial Blood Methemoglobin 1.0 Blood Gas Hemoglobin 10.8 Oxygen Delivery Device NRB Blood Gas Liter Flow 15 Haptoglobin 541 Random Cortisol 42.9 Urine Color RED Urine Turbidity CLOUDY Urine pH 6.0 Urine Specific Proctor 1.012 Urine Protein 100 Urine Glucose (UA) NEG Urine Ketones NEG Urine Occult Blood LARGE Urine Nitrite NEG Urine Bilirubin NEGATIVE Urine Urobilinogen LESS THAN 2.0 Urine Leukocyte Esterase LARGE Urine RBC Urine WBC Urine WBC Clumps OCC Urine Squamous Epithelial Cells 5 Urine Bacteria MOD Urine Yeast with Hyphae OCC Urine Yeast (Budding) FEW Microscopic Urinalysis Comment CATH-CULTURE IND Test 11/16/17 09:46 11/16/17 09:52 11/16/17 12:11 White Blood Count 26.7 Red Blood Count 4.11 Hemoglobin 10.6 Hematocrit 34.2 Mean Corpuscular Volume 83.3 Mean Corpuscular Hemoglobin 25.9 Mean Corpuscular Hemoglobin Concent 31.0 Red Cell Distribution Width 17.8 Platelet Count 351 Mean Platelet Volume 8.9 Neutrophils (%) (Auto) 86.3 Lymphocytes (%) (Auto) 9.3 Monocytes (%) (Auto) 3.8 Eosinophils (%) (Auto) 0.4 Basophils (%) (Auto) 0.2 Neutrophils # (Auto) 23.0 Lymphocytes # (Auto) 2.5 Monocytes # (Auto) 1.0 Eosinophils # (Auto) 0.1 Basophils # (Auto) 0.1 CBC Comment AUTO DIFF Differential Total Cells Counted 100 Neutrophils % (Manual) 79 Band Neutrophils % 5 Lymphocytes % 10 Monocytes % 2 Neutrophils # (Manual) 23.5 Metamyelocytes 2 Myelocytes 2 Differential Comment FINAL DIFF MANUAL Platelet Estimate NORMAL Platelet Morphology Comment NORMAL Prothrombin Time 11.4 Prothromb Time International Ratio 1.1 Activated Partial Thromboplast Time 25.4 Blood Urea Nitrogen 46 Creatinine 2.24 Random Glucose 231 Total Protein 8.4 Albumin 3.0 Calcium Level 8.7 Phosphorus Level 2.9 Magnesium Level 1.8 Alkaline Phosphatase 85 Aspartate Amino Transf (AST/SGOT) 16 Alanine Aminotransferase (ALT/SGPT) 11 Lactate Dehydrogenase 279 Total Bilirubin 0.4 Sodium Level 152 Potassium Level 3.3 Chloride Level 115 Carbon Dioxide Level 26.7 Anion Gap 10 Estimat Glomerular Filtration Rate 22 Hemoglobin A1c 6.1 Lactic Acid Level 1.4 Ammonia 18 Total Creatine Kinase 71 Troponin I 0.09 Triglycerides Level 189 Cholesterol Level 110 LDL Cholesterol 51 HDL Cholesterol 21.2 Cholesterol/HDL Ratio 5.18 Amylase Level 43 Lipase 632 Thyroid Stimulating Hormone 3rd Gen 1.630 Blood Gas Puncture Site RT RADIAL RT RADIAL Blood Gas Patient Temperature 98.6 98.6 Blood Gas HCO3 27 28 Blood Gas Base Excess 1.4 2.9 Blood Gas Oxygen Saturation 97 97 Arterial Blood pH 7.29 7.35 Arterial Blood Partial Pressure CO2 58 52 Arterial Blood Partial Pressure O2 133 185 Arterial Blood Oxygen Content 15.3 14.2 Arterial Blood Carboxyhemoglobin 1.1 1.2 Arterial Blood Methemoglobin 0.8 0.9 Blood Gas Hemoglobin 11.0 10.1 Oxygen Delivery Device BIPAP VENTILATOR Blood Gas Ventilator Setting IPAP15/[id number] PRVC/AC Blood Gas Inspired Oxygen 35 50 Date/Time Source Procedure Growth Status 11/16/17 12:30 Blood Peripheral Aerobic Blood Culture Pending Received 11/16/17 12:30 Blood Peripheral Anaerobic Blood Culture Pending Received 11/16/17 08:40 Urine Catheterized Urine Urine Culture Pending Received Imaging Last Impressions Lower Extremity Ultrasound 11/16/17 0000 Signed Impressions: Service Date/Time: Thursday, November 16, 2017 08:49 - CONCLUSION: No evidence of deep venous thrombosis in either lower extremity. Chetan Beltre MD Chest X-Ray 11/16/17 0000 Signed Impressions: Service Date/Time: Thursday, November 16, 2017 11:08 - CONCLUSION: 1. ET tube in good position. 2. The lungs are clear. Chetan Beltre MD Abdomen X-Ray 11/16/17 0000 Signed Impressions: Service Date/Time: Thursday, November 16, 2017 08:03 - CONCLUSION: Gastric tube tip and side-port project within the stomach. Chetan Beltre MD Abdomen Ultrasound 11/14/17 0000 Signed Impressions: Service Date/Time: October 07:56 - CONCLUSION: 1. There is elevated velocity within the proximal SMA which raises the possibility of a focal stenosis. 2. The vessels imaged and appear to be patent. Yo Joiner MD Abdomen/Pelvis CT 11/10/17 0601 Signed Impressions: Service Date/Time: Friday, November 10, 2017 07:44 - CONCLUSION: 1.Focal abnormal circumferential wall thickening involving the descending colon at the level of the hepatic flexure with significant adjacent fluid tracking within the right paracardiac color. Given the extensive atherosclerosis and focal finding concern is for possible infarct. Infection is also within the differential diagnosis. 2. Interval placement of a right-sided percutaneous nephrostomy tube. Stable appearance of the right kidney with multiple renal stones. Josefa Hair MD Head CT 11/10/17 0000 Signed Impressions: Service Date/Time: Friday, November 10, 2017 11:22 - CONCLUSION: Stable exam. No acute abnormality.. Josefa Hair MD Physical Exam HEENT: Normocephalic; atraumatic CHEST: Respirations synchronized with vent, ETT ABDOMEN: Distended, soft, bowel sounds active SKIN: Normal; no rash; no jaundice. MAIL DISTRIBUTION SCHEME EXAMINER: Opens eyes (Teresa Martinez) Assessment and Plan Plan Assessment: - Colitis- infectious vs ischemic- unable to obtain history from patient CT abdomen and pelvis W/O IV contrast (11/10) --> Focal abnormal circumferential wall thickening involving the descending colon at the level of the hepatic flexure with significant adjacent fluid tracking within the right paracardiac color. Given the extensive atherosclerosis and focal finding concern is for possible infarct. Infection is also within the differential diagnosis. Interval placement of a right-sided percutaneous nephrostomy tube. Stable appearance of the right kidney with multiple renal stones. Febrile with leukocytosis C diff stool ordered by GS, pt started on IV Flagyl and Zosyn - Anemia, microcytic, hypochromic- hgb 10 in July Colonoscopy (11/12) --> Severe diverticulosis in the sigmoid and descending colon. Poor prep. Biopsy from descending colon. Internal and external hemorrhoids. Pathology ( descending colon) focal acute colitis with non-specific features. (11/14) Pt remains in ICU, respiratory status seems to be improving on NC. She still has NGT to R nostril, not receiving any feedings at this time. SENIOR C SOFTWARE DEVELOPER has recommended NPO Abdominal US with mesenteric vessels --> There is elevated velocity within the proximal SMA which raises the possibility of a focal stenosis. The vessels imaged and appear to be patent. H/H is improving, last transfusion on the . No obvious source of GIB. Iron panel: Iron-13 TIBC-155 %sat-8.4 Ferritin-328 (transfused on the ) TSH WNL. Leukocytosis noted- pt on Zosyn and Flagyl (11/15) Pt much more alert today, able to answer some questions. States she does not want a feeding tube. She was on a pureed diet prior to coming to the hospital. Will have speech therapy reassess patient to see if she is able to tolerate pureed diet. Increase in leukocytosis today, afebrile, pt on Zosyn and Flagyl H/H with some improvement today Palliative following and note states that son wishes for aggressive care and would be agreeable to PEG tube if that is indicated (11/16) Pt transferred to ICU for respiratory distress likely secondary to aspiration. She is now intubated. As previously noted, palliative care notes that son is OK with PEG tube if indicated Plan: EGD with PEG on Saturday if stable obtain consent Currently NPO Monitor H/H- seems to be improving Zosyn and Flagyl- pathology consistent with acute colitis Supportive care Further recommendations based on clinical course Pt has been seen and examined by myself and Dr. Donahue and this note is written on her behalf (Teresa Martinez) Teresa Martinez November 16, 2017 15:19 Maura Donahue MD November 16, 2017 18:15
[2017-11-16] MEDS: FREE WATER G-TUBE SCH (16:43)
[2017-11-16] MEDS: risperiDONE 0.5 MG TAB PO SCH (16:44)
[2017-11-16] MEDS: CHLORHEXIDINE 0.12% (ORAL KIT) 15 ML CUP MT SCH (20:00)
[2017-11-16] MEDS: ATORVASTATIN 40 MG TAB PO SCH (21:33)
[2017-11-16] MEDS: MORPHINE SULFATE 4 MG/ML INJ IV PRN (21:34)
[2017-11-17] VITALS (13 sets, daily range): BP systolic 136–184; BP diastolic 63–79; PULSE 49–89; RESP 1–23; TEMP 98.4–98.7; O2SAT 96–100
[2017-11-17] MEDS: metroNIDAZOLE 500 MG INJ 100 ML IV SCH ×4 (01:00→20:55)
[2017-11-17] MEDS: RESP: ALBUTEROL 2.5 MG/IPRATROPIUM 0.5 MG NEB (SCH) NEB ×4 (03:48→21:47)
--- NOTE | 2017-11-17 04:05 | RADRPT ---
EXAM DATE/TIME: 11/17/2017 03:20 [facility] COMPARISON: CHEST SINGLE AP, November 16, 2017, 11:08. INDICATIONS : Shortness of breath. MEDICAL HISTORY : Hypertension. Cerebrovascular accident. Confusion. Afib. Coronary artery disease. Headache. Kidney st ones. Schizophrenia. Bipolar disorder. Depression. Anxiety. MRSA. VRE SURGICAL HISTORY : Coronary artery stent.Tonsillectomy. Hysterectomy. section ENCOUNTER: Subsequent ACUITY: 1 week PAIN SCORE: Non-responsive. LOCATION: Bilateral chest FINDINGS: Endotracheal tube in good position. NG enters stomach. Mild cardiomegaly. Minimal basal atelectasis. No focal consolidation or significant effusion. CONCLUSION: 1. Minimal basal atelectasis. Endotracheal tube and nasogastric tube in good position. Pascual Jennings MD on November 17, 2017 at 4:03 Board Certified Radiologist. This report was verified electronically.
[2017-11-17] MEDS: SODIUM CHLOR 0.45% 1000 ML INJ 1,000 ML IV SCH (04:15)
[2017-11-17] MEDS: FREE WATER G-TUBE SCH ×4 (05:06→18:00)
[2017-11-17] MEDS: PIPERACIL-TAZO 2.25 GM PREMIX 50 ML IV SCH ×3 (05:07→21:43)
[2017-11-17] MEDS: hydrALAZINE HCL 20 MG/ML VIAL IV PUSH PRN ×3 (05:20→10:12)
[2017-11-17] MEDS: INSULIN NovoLIN REGULAR SUPPLEMENTAL SCALE SQ SCH ×4 (06:00→18:00)
[2017-11-17 07:13] LABS: BICARBONATE 25.4 MEQ/L (21.0-32.0); CALCIUM 8.3 MG/DL (8.5-10.1); CREATININE 1.93 MG/DL (0.50-1.00); PHOSPHORUS 1.2 MG/DL (2.5-4.9)
[2017-11-17 07:37] LABS: AUTOMATED NEUTROPHIL # 9.1 TH/MM3 (1.8-7.7); BASOPHIL # 0.1 TH/MM3 (0-0.2); BASOPHIL % 0.5 % (0.0-2.0); EOSINOPHIL # 0.1 TH/MM3 (0-0.4); EOSINOPHIL % 1.1 % (0.0-4.0); HEMATOCRIT 29.4 % (35.0-46.0); HEMOGLOBIN 9.2 GM/DL (11.6-15.3); LYMPHOCYTE # 2.2 TH/MM3 (1.0-4.8); MEAN CELL VOLUME 81.9 FL (80.0-100.0); MEAN CORPUSCULAR HEMOGLOBIN 25.6 PG (27.0-34.0); MEAN CORPUSCULAR HGB CONC 31.2 % (32.0-36.0); MEAN PLATELET VOLUME 8.6 FL (7.0-11.0); MONO % 4.7 % (0.0-8.0); MONOCYTE # 0.6 TH/MM3 (0-0.9); NEUT % 75.7 % (16.0-70.0); PLATELET COUNT 275 TH/MM3 (150-450); RED BLOOD COUNT 3.59 MIL/MM3 (4.00-5.30); RED CELL DISTRIBUTION WIDTH 17.6 % (11.6-17.2)
[2017-11-17] MEDS: POLYETHYLENE GLYCOL 17 GM PKG PO SCH (07:37)
[2017-11-17] MEDS: LACTULOSE SYRUP 20 GM/30 ML CUP PO SCH (07:37)
[2017-11-17] MEDS: SENNOSIDES SYRUP 8.8 MG/5 ML CUP PO SCH ×2 (07:38→21:00)
[2017-11-17] MEDS ORDERED: POTASSIUM CHLORIDE 20 MEQ PWD PACKET PO ONE (08:00)
[2017-11-17] MEDS: CHLORHEXIDINE 0.12% (ORAL KIT) 15 ML CUP MT SCH ×2 (08:07→20:56)
[2017-11-17] MEDS: METOPROLOL TARTRATE 25 MG TAB PO SCH ×2 (08:08→21:42)
[2017-11-17] MEDS: POTASSIUM CHLOR 10 MEQ PREMIX 100 ML IV SCH ×3 (08:08→10:44)
[2017-11-17] MEDS: ASPIRIN EC 81 MG TABEC PO SCH (08:08)
[2017-11-17] MEDS: GABAPENTIN 100 MG CAP PO SCH ×2 (08:08→21:42)
[2017-11-17] MEDS: DOCUSATE SODIUM 100 MG/10 ML UDC PO SCH ×2 (08:08→21:00)
[2017-11-17] MEDS: MUPIROCIN 2% OINT 1 APPLIC/GM SYR EACH NARE SCH ×2 (08:09→21:00)
[2017-11-17] MEDS: ARTIFICIAL TEARS OPTH SOLN 15 ML BTL EACH EYE SCH ×2 (08:09→21:00)
[2017-11-17] MEDS: SODIUM CHLORIDE 0.9% FLUSH 10 ML FLUSH IV FLUSH SCH ×2 (08:10→21:00)
[2017-11-17] MEDS: LANSOPRAZOLE SOLUTAB 30 MG TAB NG SCH (08:14)
[2017-11-17] MEDS: SERTRALINE HCL 50 MG TAB PO SCH (08:15)
[2017-11-17] MEDS: risperiDONE 0.5 MG TAB PO SCH ×3 (08:15→18:01)
[2017-11-17 08:41] LABS: CREATININE, RANDOM URINE 35.5 MG/DL
[2017-11-17] MEDS ORDERED: POTASSIUM PHOSPHATE INJ 30 MMOL in SODIUM CHLOR 0.9% 250 ML INJ 250 ML IV ONE (09:00)
[2017-11-17] MEDS: MORPHINE SULFATE 4 MG/ML INJ IV PRN (09:31)
[2017-11-17 11:19] LABS: BANDS 4 % (0-6); LYMPHOCYTES 15 % (9-44); METAMYELOCYTES 1 % (0-1); MONOCYTES 2 % (0-8); MYELOCYTES 1 % (0-0); POLYS (SEG NEUTROPHILS) 77 % (16-70)
--- NOTE | 2017-11-17 15:05 | HHI.CCPN ---
Subjective Remarks/Hospital Course This is a 62yF with history of stroke and admitted for acute colitis and multi- organism UTI. She has a history of dysphagia and was currently NPO on tube feeding. Today she had sudden onset of acute hypoxia with spo2 82% on nc o2. she was placed on NRB. She has noted ronchi bilaterally. she has significant edema and grossly appears volume overloaded. she was admitted with Cr >3 and has been gently diuresed and SIMBA is slowly improving. rapid response was called and she was emergently transferred to the ICU. due to her current mental status (and reported baseline mental status), no additional information is obtainable from the patient, and she only moans. ABG demonstrates severe respiratory acidosis. I attempted to contact her son and medical decision maker but was unable to reach him. Palliative care is following and has also not been able to reach him today. ROS unobtainable. 11/14: respiratory status improving. acute hypercarbic failure resolved. on 3L nc. mental status back to baseline. lungs are much clearer today. 11/16: LALA hand transferred to intensive care unit due to acute hypoxemia/ hypercapnic respiratory failure on the floor. Patient received 40 mg furosemide and was placed on noninvasive ventilation by hospitalist overnight. Eyes are open. Patient has chronic weakness in left upper extremity and lower extremity secondary to a right MCA CVA several years ago. Admitted with abdominal pain. Sigmoid endoscopy revealed colitis. C. difficile is still pending. Possible SMA stenosis on imaging however evaluated by Dr. Guerrero that he is to be a surgical abdomen at this time.. Currently seen on BiPAP and follows commands with right upper lower extremities. Subjective 11/17: Remains orotracheally intubated. Currently on PSV trial 10/5-30%. Will initiate tube feeding today. Hemodynamically stable. Objective Vital Signs Date Time Temp Pulse Resp B/P (MAP) Pulse Ox O2 Delivery O2 Flow Rate FiO2 11/17/17 12:00 98.6 65 23 136/63 (87) 100 11/17/17 12:00 30 11/17/17 08:00 Mechanical Ventilator 11/15/17 20:15 2.00 Intake and Output 11/17/17 11/17/17 11/17/17 07:59 15:59 23:59 Intake Total 1559 ml Output Total 700 ml Balance 859 ml Result Diagram: 11/17/17 0514 11/17/17 0514 Other Results Microbiology Date/Time Source Procedure Growth Status 11/16/17 12:30 Blood Peripheral Aerobic Blood Culture - Preliminary NO GROWTH IN 1 DAY Resulted 11/16/17 12:30 Blood Peripheral Anaerobic Blood Culture - Preliminary NO GROWTH IN 1 DAY Resulted 11/16/17 08:40 Urine Catheterized Urine Urine Culture Pending Received Imaging Last Impressions Chest X-Ray 11/17/17 0600 Signed Impressions: Service Date/Time: Friday, November 17, 2017 03:20 - CONCLUSION: 1. Minimal basal atelectasis. Endotracheal tube and nasogastric tube in good position. Pascual Jennings MD Lower Extremity Ultrasound 11/16/17 0000 Signed Impressions: Service Date/Time: Thursday, November 16, 2017 08:49 - CONCLUSION: No evidence of deep venous thrombosis in either lower extremity. Chetan Beltre MD Abdomen X-Ray 11/16/17 0000 Signed Impressions: Service Date/Time: Thursday, November 16, 2017 08:03 - CONCLUSION: Gastric tube tip and side-port project within the stomach. Chetan Beltre MD Abdomen Ultrasound 11/14/17 0000 Signed Impressions: Service Date/Time: October 07:56 - CONCLUSION: 1. There is elevated velocity within the proximal SMA which raises the possibility of a focal stenosis. 2. The vessels imaged and appear to be patent. Yo Joiner MD Abdomen/Pelvis CT 11/10/17 0601 Signed Impressions: Service Date/Time: Friday, November 10, 2017 07:44 - CONCLUSION: 1.Focal abnormal circumferential wall thickening involving the descending colon at the level of the hepatic flexure with significant adjacent fluid tracking within the right paracardiac color. Given the extensive atherosclerosis and focal finding concern is for possible infarct. Infection is also within the differential diagnosis. 2. Interval placement of a right-sided percutaneous nephrostomy tube. Stable appearance of the right kidney with multiple renal stones. Josefa Hair MD Head CT 11/10/17 0000 Signed Impressions: Service Date/Time: Friday, November 10, 2017 11:22 - CONCLUSION: Stable exam. No acute abnormality.. Josefa Hair MD Objective Remarks GENERAL: 62-year-old female currently orotracheally intubated SKIN: Warm and dry. Well healed sacral/heel ulcers HEAD: Atraumatic. Normocephalic. EYES: Pupils equal and round 3 mm reactive to 2 bilaterally. No scleral icterus. No injection or drainage. ENT: No nasal bleeding or discharge. Mucous membranes pink and moist. NG tube in left nares NECK: Trachea midline. No JVD. CARDIOVASCULAR: Tachycardic in a sinus arrhythmia. S1, S2. No S4, S3. Without murmur. RESPIRATORY: Improved rhonchorous breath sounds appreciated anteriorly posteriorly in bilateral upper and lower lung [place]. No accessory muscle use. GASTROINTESTINAL: Abdomen soft, non-tender, nondistended. Hepatic and splenic margins not palpable. MUSCULOSKELETAL: Extremities 1+ bilateral lower extremity edema. No obvious deformities. : Right nephrostomy tube in place with drainage NEUROLOGICAL: Awake and alert. Patient has weakness in left upper lower extremity with contracted left upper extremity. Follows commands with right upper extremities. Urinary Catheter: Yes Assessment to: Continue Rebolledo insert reason: Prolonged Immobilization Vascular Central Line Catheter: No Assessment to: Continue A/P Assessment and Plan Neuro/Psych: Bipolar/schizophrenia History of right MCA CVA with left-sided weakness Chronic narcotic/opioid use with oxycodone/acetaminophen Currently requiring no sedation while on ventilator Acetaminophen 650 mg by tube every 6 hours as needed fever/pain Use Ofirmev 1 g IV every 8 hours if n.p.o. for fever/pain Currently on Risperdal 0.5 mg by tube 3 times daily. Continue Continue gabapentin 100 mg twice daily CV: Essential hypertension Hyperlipidemia Coronary artery disease with stents to the RCA and LAD Continue aspirin 81 mg p.o. daily 2D echocardiogram 08/15 revealed EF 60-65%. No regional wall motion abnormality. Mild TR. Pulmonary arterial pressure 37 mmHg Continue metoprolol tartrate 25 mg p.o. twice daily. Holding home medication hydralazine 50 mg p.o. 3 times daily. Resume when clinically indicated Resp: Acute hypoxic hypercapnic respiratory failure secondary to aspiration PVRC - PSV 04/04 at 30% Chest x-ray revealed bilateral lower lobe atelectasis. No focal infiltrates and /or effusions. Ventilator bundle Aggressive pulmonary toilet including albuterol/ipratropium aerosols every 6 hours with albuterol aerosols 2 hours as needed dyspnea Chest x-ray in a.m. 11/18 GI: Aspiration Gastroesophageal reflux disease Sigmoid diverticulosis Pancolitis Internal and external hemorrhoids Currently on lansoprazole 30 mg by tube daily. On omeprazole 20 mg daily at home Docusate sodium 100 mg twice daily, senna 8.8 mg twice daily 4 bowel movements 11/16 Initiate tube feeding with Glucerna 1.5 goal 50 cc an hour per nutrition recommendations Patient had sigmoidoscopy endoscopy 11/15 revealed sigmoid diverticulosis, pancolitis with internal and external hemorrhoids. CT abdomen/pelvis revealed descending colon wall thickening. Atherosclerotic vascular disease. Right hydronephrosis. Atrophic left kidney. Evaluated by general surgery/Dr. Guerrero that he is to be a surgical abdomen. Noted high velocities in SMA. Cannot anticoagulate due to history of bleeding : Status post right nephrostomy tube Nephrolithiasis with right hydronephrosis Renal ultrasound revealed atrophic left kidney with right hydronephrosis with pigtail in place/nephrostomy tube Endo: Diabetes mellitus type 2 Holding insulin detemir 7 units at night. Sliding-scale insulin with Novolin R with Accu-Cheks every 6 hours to maintain euglycemia/low regimen Renal: Acute kidney injury in the setting of chronic kidney disease stage III a Right hydronephrosis status post right nephrostomy tube Right nephrolithiasis Maintain nephrostomy tube Monitor urine output Accurate I's and O's A.m. BMP pending Heme: Leukocytosis Normocytic anemia Monitor CBC daily. Follow trends. No indication for transfusion of blood products at this time. Follow-up coags ID: Multidrug-resistant ESBL positive E. coli/multidrug-resistant Pseudomonas and Enterococcus faecalis UTI likely contaminant Currently of piperacillin/tazobactam and metronidazole IV. Blood cultures 2 on admission were no growth tod ate. Urine revealed ESBL positive E. coli. Repeat blood cultures 2, urine and sputum 11/16 with sputum not completed. FEN: Hypernatremia Hypophosphatemia -acute Hypokalemia -acute We will place on half normal saline at 50 cc while currently n.p.o. Recheck potassium phosphorus at 1800 hrs. in a.m. replace per ICU electrolyte protocol MSK: Well healed Sacral decubitus/heel ulcers Wound care evaluation and treat Access -Utilize peripheral IV. Central line if indicated Prophylaxis -GI -lansoprazole -DVT -SCD/holding pharmacological prophylaxis in light of history of hematuria on TSOAC Level 2 follow-up Carlos Murcia MD November 17, 2017 15:05
[2017-11-17] MEDS ORDERED: POTASSIUM PHOSPHATE INJ 30 MMOL in SODIUM CHLOR 0.9% 250 ML INJ 250 ML IV PRN (15:15)
[2017-11-17] MEDS ORDERED: SODIUM PHOSPHATE INJ 30 MMOL in SODIUM CHLOR 0.9% 250 ML INJ 240 ML IV PRN (15:15)
[2017-11-17] MEDS ORDERED: MAGNESIUM SULFATE INJ 4 GM in SODIUM CHLORIDE 0.9% INJ 92 ML IV PRN (15:15)
[2017-11-17] MEDS ORDERED: MAGNESIUM OXIDE 400 MG TAB PO PRN (15:15)
[2017-11-17] MEDS ORDERED: POTASSIUM PHOSPHATE MONOBASIC 500 MG TAB PO/TUBE PRN (15:15)
[2017-11-17] MEDS ORDERED: POTASSIUM CHLORIDE 25 MEQ EFFERVESCENT TAB PO PRN (15:15)
[2017-11-17] MEDS ORDERED: POTASSIUM PHOSPHATE MONOBASIC 500 MG TAB PO PRN (15:15)
[2017-11-17] MEDS ORDERED: POTASSIUM CHLOR 40 MEQ PREMIX 100 ML IV PRN ×2 (15:15)
[2017-11-17] MEDS ORDERED: POTASSIUM CHLOR 20 MEQ PREMIX 100 ML IV PRN (15:15)
[2017-11-17] MEDS ORDERED: MAGNESIUM SULFATE INJ 2 GM in SODIUM CHLORIDE 0.9% INJ 96 ML IV PRN (15:15)
[2017-11-17 18:53] LABS: PHOSPHORUS 3.1 MG/DL (2.5-4.9)
[2017-11-17] MEDS: ATORVASTATIN 40 MG TAB PO SCH (21:43)
[2017-11-18] VITALS (14 sets, daily range): BP systolic 134–169; BP diastolic 63–80; PULSE 58–80; RESP 12–19; TEMP 98.5–99.9; O2SAT 99–100
[2017-11-18] MEDS: SODIUM CHLOR 0.45% 1000 ML INJ 1,000 ML IV SCH ×2 (00:15→21:13)
[2017-11-18] MEDS: metroNIDAZOLE 500 MG INJ 100 ML IV SCH ×4 (01:44→17:45)
[2017-11-18] MEDS: FREE WATER G-TUBE SCH ×5 (03:01→23:53)
[2017-11-18] MEDS: RESP: ALBUTEROL 2.5 MG/IPRATROPIUM 0.5 MG NEB (SCH) NEB ×4 (04:28→20:37)
[2017-11-18 05:07] LABS: AUTOMATED NEUTROPHIL # 10.1 TH/MM3 (1.8-7.7); BASOPHIL # 0.1 TH/MM3 (0-0.2); BASOPHIL % 0.4 % (0.0-2.0); EOSINOPHIL # 0.2 TH/MM3 (0-0.4); EOSINOPHIL % 1.6 % (0.0-4.0); HEMATOCRIT 28.4 % (35.0-46.0); LYMPH % 12.9 % (9.0-44.0); LYMPHOCYTE # 1.6 TH/MM3 (1.0-4.8); MEAN CORPUSCULAR HEMOGLOBIN 25.9 PG (27.0-34.0); MEAN CORPUSCULAR HGB CONC 31.6 % (32.0-36.0); MEAN PLATELET VOLUME 8.6 FL (7.0-11.0); MONO % 3.9 % (0.0-8.0); MONOCYTE # 0.5 TH/MM3 (0-0.9); NEUT % 81.2 % (16.0-70.0); PLATELET COUNT 265 TH/MM3 (150-450); RED BLOOD COUNT 3.46 MIL/MM3 (4.00-5.30); RED CELL DISTRIBUTION WIDTH 18.2 % (11.6-17.2); WHITE BLOOD COUNT 12.4 TH/MM3 (4.0-11.0)
--- NOTE | 2017-11-18 05:31 | RADRPT ---
EXAM DATE/TIME: 11/18/2017 03:31 [facility] COMPARISON: CHEST SINGLE AP, November 17, 2017, 3:20. INDICATIONS : Short of breath. MEDICAL HISTORY : Hypertension. Cerebrovascular accident. Confusion. Afib. Coronary artery disease. Headache. Kidney st ones. Schizophrenia. Bipolar disorder.Depression. Anxiety. MRSA. VRE SURGICAL HISTORY : Coronary artery stent.Tonsillectomy. Hysterectomy. section ENCOUNTER: Subsequent ACUITY: 1 week PAIN SCORE: 0/10 LOCATION: Bilateral chest FINDINGS: A single AP portable semierect view of the chest was obtained and again demonstrates endotracheal tub e in place with the tip approximately 4 cm above the moises. The nasogastric tube remains in place. T here are no confluent infiltrates or effusions. The heart size at the upper limits of normal with no perihilar edema. Mild atherosclerotic changes are present in the aorta. There are overlying electroca rdiogram leads and oxygen tubing. CONCLUSION: No significant change. The lungs are clear. Rosales Jay MD on November 18, 2017 at 5:29 Board Certified Radiologist. This report was verified electronically.
[2017-11-18 05:32] LABS: ALBUMIN 2.3 GM/DL (3.4-5.0); ALKALINE PHOSPHATASE 64 U/L (45-117); ALT (GPT) 10 U/L (10-53); AST (GOT) 18 U/L (15-37); BICARBONATE 26.4 MEQ/L (21.0-32.0); BLOOD UREA NITROGEN 29 MG/DL (7-18); CALCIUM 8.2 MG/DL (8.5-10.1); CHLORIDE 115 MEQ/L (98-107); GLOMERULAR FILTRATION RATE 28 ML/MIN (>89); GLUCOSE,RANDOM 124 MG/DL (74-106); PHOSPHORUS 2.4 MG/DL (2.5-4.9); SODIUM (NA) 151 MEQ/L (136-145); TOTAL BILIRUBIN ADULT 0.4 MG/DL (0.2-1.0); TOTAL PROTEIN 6.6 GM/DL (6.4-8.2)
[2017-11-18] MEDS: INSULIN NovoLIN REGULAR SUPPLEMENTAL SCALE SQ SCH ×5 (06:00→23:54)
[2017-11-18] MEDS: PIPERACIL-TAZO 2.25 GM PREMIX 50 ML IV SCH ×4 (06:16→23:53)
[2017-11-18] MEDS: CHLORHEXIDINE 0.12% (ORAL KIT) 15 ML CUP MT SCH ×2 (07:52→21:13)
[2017-11-18] MEDS: MUPIROCIN 2% OINT 1 APPLIC/GM SYR EACH NARE SCH ×2 (07:52→21:12)
[2017-11-18] MEDS: ARTIFICIAL TEARS OPTH SOLN 15 ML BTL EACH EYE SCH ×2 (07:52→21:13)
[2017-11-18] MEDS: SODIUM CHLORIDE 0.9% FLUSH 10 ML FLUSH IV FLUSH SCH ×2 (07:56→21:14)
[2017-11-18] MEDS: ASPIRIN EC 81 MG TABEC PO SCH (07:58)
[2017-11-18] MEDS: GABAPENTIN 100 MG CAP PO SCH ×2 (07:58→21:13)
[2017-11-18] MEDS: LACTULOSE SYRUP 20 GM/30 ML CUP PO SCH (07:58)
[2017-11-18] MEDS: METOPROLOL TARTRATE 25 MG TAB PO SCH ×2 (07:58→21:12)
[2017-11-18] MEDS: DOCUSATE SODIUM 100 MG/10 ML UDC PO SCH ×2 (07:58→20:50)
[2017-11-18] MEDS: LANSOPRAZOLE SOLUTAB 30 MG TAB NG SCH (07:58)
[2017-11-18] MEDS: POLYETHYLENE GLYCOL 17 GM PKG PO SCH (07:58)
[2017-11-18] MEDS: SERTRALINE HCL 50 MG TAB PO SCH (07:59)
[2017-11-18] MEDS: risperiDONE 0.5 MG TAB PO SCH ×3 (07:59→17:45)
[2017-11-18] MEDS: SENNOSIDES SYRUP 8.8 MG/5 ML CUP PO SCH ×2 (07:59→20:51)
[2017-11-18] MEDS ORDERED: POTASSIUM PHOSPHATE INJ 30 MMOL in SODIUM CHLOR 0.9% 250 ML INJ 250 ML IV ONE (08:30)
--- NOTE | 2017-11-18 08:59 | HHI.CCPN ---
Subjective Remarks/Hospital Course This is a 62yF with history of stroke and admitted for acute colitis and multi- organism UTI. She has a history of dysphagia and was currently NPO on tube feeding. Today she had sudden onset of acute hypoxia with spo2 82% on nc o2. she was placed on NRB. She has noted ronchi bilaterally. she has significant edema and grossly appears volume overloaded. she was admitted with Cr >3 and has been gently diuresed and SIMBA is slowly improving. rapid response was called and she was emergently transferred to the ICU. due to her current mental status (and reported baseline mental status), no additional information is obtainable from the patient, and she only moans. ABG demonstrates severe respiratory acidosis. I attempted to contact her son and medical decision maker but was unable to reach him. Palliative care is following and has also not been able to reach him today. ROS unobtainable. 11/14: respiratory status improving. acute hypercarbic failure resolved. on 3L nc. mental status back to baseline. lungs are much clearer today. 11/16: LALA hand transferred to intensive care unit due to acute hypoxemia/ hypercapnic respiratory failure on the floor. Patient received 40 mg furosemide and was placed on noninvasive ventilation by hospitalist overnight. Eyes are open. Patient has chronic weakness in left upper extremity and lower extremity secondary to a right MCA CVA several years ago. Admitted with abdominal pain. Sigmoid endoscopy revealed colitis. C. difficile is still pending. Possible SMA stenosis on imaging however evaluated by Dr. Guerrero that he is to be a surgical abdomen at this time.. Currently seen on BiPAP and follows commands with right upper lower extremities. 11/17: Remains orotracheally intubated. Currently on PSV trial 10/-30%. Will initiate tube feeding today. Hemodynamically stable. Subjective 11/18: Tube feeding currently on hold for plan PEG tube today. Remains orotracheally intubated. Arousable and stares at you on physical examination. Appears comfortable on the ventilator and afebrile Objective Vital Signs Date Time Temp Pulse Resp B/P (MAP) Pulse Ox O2 Delivery O2 Flow Rate FiO2 11/18/17 08:31 100 30 11/18/17 07:00 Mechanical Ventilator 11/18/17 04:00 99.2 62 16 156/70 (98) 11/15/17 20:15 2.00 Intake and Output 11/18/17 11/18/17 11/18/17 07:59 15:59 23:59 Intake Total 150 ml Output Total 1015 ml Balance -865 ml Result Diagram: 11/18/17 0405 11/18/17 0405 Other Results Microbiology Date/Time Source Procedure Growth Status 11/16/17 12:30 Blood Peripheral Aerobic Blood Culture - Preliminary NO GROWTH IN 1 DAY Resulted 11/16/17 12:30 Blood Peripheral Anaerobic Blood Culture - Preliminary NO GROWTH IN 1 DAY Resulted 11/16/17 08:40 Urine Catheterized Urine Urine Culture - Preliminary Yeast Species Pseudomonas Species Resulted Imaging Last Impressions Chest X-Ray 11/18/17 0600 Signed Impressions: Service Date/Time: Saturday, November 18, 2017 03:31 - CONCLUSION: No significant change. The lungs are clear. Rosales Jay MD Lower Extremity Ultrasound 11/16/17 0000 Signed Impressions: Service Date/Time: Thursday, November 16, 2017 08:49 - CONCLUSION: No evidence of deep venous thrombosis in either lower extremity. Chetan Beltre MD Abdomen X-Ray 11/16/17 0000 Signed Impressions: Service Date/Time: Thursday, November 16, 2017 08:03 - CONCLUSION: Gastric tube tip and side-port project within the stomach. Chetan Beltre MD Abdomen Ultrasound 11/14/17 0000 Signed Impressions: Service Date/Time: October 07:56 - CONCLUSION: 1. There is elevated velocity within the proximal SMA which raises the possibility of a focal stenosis. 2. The vessels imaged and appear to be patent. Yo Joiner MD Abdomen/Pelvis CT 11/10/17 0601 Signed Impressions: Service Date/Time: Friday, November 10, 2017 07:44 - CONCLUSION: 1.Focal abnormal circumferential wall thickening involving the descending colon at the level of the hepatic flexure with significant adjacent fluid tracking within the right paracardiac color. Given the extensive atherosclerosis and focal finding concern is for possible infarct. Infection is also within the differential diagnosis. 2. Interval placement of a right-sided percutaneous nephrostomy tube. Stable appearance of the right kidney with multiple renal stones. Josefa Hair MD Head CT 11/10/17 0000 Signed Impressions: Service Date/Time: Friday, November 10, 2017 11:22 - CONCLUSION: Stable exam. No acute abnormality.. Josefa Hair MD Objective Remarks GENERAL: 62-year-old female currently orotracheally intubated SKIN: Warm and dry. Well healed sacral/heel ulcers HEAD: Atraumatic. Normocephalic. EYES: Pupils equal and round 3 mm reactive to 2 bilaterally. No scleral icterus. No injection or drainage. ENT: No nasal bleeding or discharge. Mucous membranes pink and moist. NG tube in left nares NECK: Trachea midline. No JVD. CARDIOVASCULAR: Tachycardic in a sinus arrhythmia. S1, S2. No S4, S3. Without murmur. RESPIRATORY: Improved rhonchorous breath sounds appreciated anteriorly posteriorly in bilateral upper and lower lung [place]. No accessory muscle use. GASTROINTESTINAL: Abdomen soft, non-tender, nondistended. Hepatic and splenic margins not palpable. MUSCULOSKELETAL: Extremities 1+ bilateral lower extremity edema. No obvious deformities. : Right nephrostomy tube in place with drainage NEUROLOGICAL: Awake and alert. Patient has weakness in left upper lower extremity with contracted left upper extremity. Follows commands with right upper extremities. Urinary Catheter: Yes Assessment to: Continue Rebolledo insert reason: Prolonged Immobilization Vascular Central Line Catheter: No Assessment to: Continue A/P Assessment and Plan Neuro/Psych: Bipolar/schizophrenia History of right MCA CVA with left-sided weakness Chronic narcotic/opioid use with oxycodone/acetaminophen Currently requiring no sedation while on ventilator Acetaminophen 650 mg by tube every 6 hours as needed fever/pain Use Ofirmev 1 g IV every 8 hours if n.p.o. for fever/pain Currently on Risperdal 0.5 mg by tube 3 times daily. Continue along with sertraline 50 mg p.o. daily Continue gabapentin 100 mg twice daily CV: Essential hypertension Hyperlipidemia Coronary artery disease with stents to the RCA and LAD Continue aspirin 81 mg p.o. daily 2D echocardiogram 08/15 revealed EF 60-65%. No regional wall motion abnormality. Mild TR. Pulmonary arterial pressure 37 mmHg Continue metoprolol tartrate 25 mg p.o. twice daily. Holding home medication hydralazine 50 mg p.o. 3 times daily. Resume when clinically indicated Resp: Acute hypoxic hypercapnic respiratory failure secondary to aspiration PVRC - PSV 10/5 at 30% Chest x-ray revealed bilateral lower lobe atelectasis. No focal infiltrates and /or effusions. Ventilator bundle Aggressive pulmonary toilet including albuterol/ipratropium aerosols every 6 hours with albuterol aerosols 2 hours as needed dyspnea Chest x-ray in a.m. 11/18 GI: Aspiration Gastroesophageal reflux disease Sigmoid diverticulosis Pancolitis Internal and external hemorrhoids Currently on lansoprazole 30 mg by tube daily. On omeprazole 20 mg daily at home Docusate sodium 100 mg twice daily, senna 8.8 mg twice daily 4 bowel movements 11/16 Initiate tube feeding with Glucerna 1.5 goal 50 cc an hour per nutrition recommendations Patient had sigmoidoscopy endoscopy 11/15 revealed sigmoid diverticulosis, pancolitis with internal and external hemorrhoids. CT abdomen/pelvis revealed descending colon wall thickening. Atherosclerotic vascular disease. Right hydronephrosis. Atrophic left kidney. Evaluated by general surgery/Dr. Guerrero that he is to be a surgical abdomen. Noted high velocities in SMA. Cannot anticoagulate due to history of bleeding : Status post right nephrostomy tube Nephrolithiasis with right hydronephrosis Renal ultrasound revealed atrophic left kidney with right hydronephrosis with pigtail in place/nephrostomy tube Endo: Diabetes mellitus type 2 Holding insulin detemir 7 units at night. Sliding-scale insulin with Novolin R with Accu-Cheks every 6 hours to maintain euglycemia/low regimen Renal: Acute kidney injury in the setting of chronic kidney disease stage III a Right hydronephrosis status post right nephrostomy tube Right nephrolithiasis Maintain nephrostomy tube Monitor urine output Accurate I's and O's A.m. BMP pending Heme: Leukocytosis Normocytic anemia Monitor CBC daily. Follow trends. No indication for transfusion of blood products at this time. Follow-up coags ID: Multidrug-resistant ESBL positive E. coli/multidrug-resistant Pseudomonas and Enterococcus faecalis UTI likely contaminant Currently of piperacillin/tazobactam and metronidazole IV. Blood cultures 2 on admission were no growth tod ate. Urine revealed ESBL positive E. coli. Repeat blood cultures 2, urine and sputum 11/16 with sputum not completed. FEN: Hypernatremia Hypophosphatemia -acute Hypokalemia -acute We will place on half normal saline at 50 cc while currently n.p.o. Recheck potassium phosphorus at 1800 hrs. in a.m. replace per ICU electrolyte protocol MSK: Well healed Sacral decubitus/heel ulcers Wound care evaluation and treat Access -Utilize peripheral IV. Central line if indicated Prophylaxis -GI -lansoprazole -DVT -SCD/holding pharmacological prophylaxis in light of history of hematuria on TSOAC Level 2 follow-up Carlos Murcia MD November 18, 2017 08:59
[2017-11-18] MEDS ORDERED: LIDOCAINE HCL 1% PF 5 ML SYRINGE OTHER ONE (12:00)
[2017-11-18] MEDS ORDERED: PROPOFOL 200 MG/20 ML AMP IV ONE (12:00)
[2017-11-18] MEDS: LABETALOL HCL 100 MG/20 ML VIAL IV PUSH PRN ×2 (13:07→13:58)
[2017-11-18] MEDS: NITROGLYCERIN 2% OINT 1 GM PACKET TOPICAL PRN (14:20)
[2017-11-18] MEDS: niCARdipine INJ 25 MG in SODIUM CHLOR 0.9% 250 ML INJ 250 ML IV PRN (15:16)
--- NOTE | 2017-11-18 17:42 | PD.PROCEDR ---
GI Procedure PROCEDURE PERFORMED EGD with biopsy and PEG placement INDICATION FOR PROCEDURE Respiratory failure needing long-term nutritional access PROCEDURE: The procedure, risks and benefits were discussed with Patient/POA and informed consent was obtained. Anesthesia sedated Patient with Diprivan. Patient was placed in the left lateral decubitus position. EGD: The Pentax videoscope was introduced through the oropharynx and advanced to the second portion of the duodenum under direct visualization. Retroflexion was performed in the stomach. FINDINGS: The esophagus this was normal The stomach there was patchy erythema in the antrum but no ulcerations no erosions no blood or bleeding the rest of the stomach was unremarkable antral biopsies were taken for further evaluation The duodenum the duodenal mucosa appeared to be abnormal with punctate black spots noted throughout the bulb and the descending duodenum of unclear significance this was biopsied Following the evaluation of the stomach and the duodenum the stomach was insufflated with air and the area of PEG placement was identified through indentation and transillumination the area was prepped and draped in usual fashion 5 cc of lidocaine were injected locally a small incision was made then an Angiocath was passed into the stomach through which a guidewire was passed this was retrieved with the scope into that a PEG tube was attached and pulled into place and thereafter secured in usual fashion The patient tolerated procedure well and there are no immediate complications we chose the area of prior PEG placement as an entry point ESTIMATED BLOOD LOSS: None SPECIMENS REMOVED: Gastric and duodenal biopsies COMPLICATIONS: None IMPRESSION: Antral gastritis Abnormal duodenal mucosa of unclear significance Successful PEG placement PLAN: Await biopsies Continue with current supportive care 1. May use PEG tube for medications today 2. May start feeding tomorrow 3. May obtain nutritional consult for tube feeding 4. Flush tube with 50 cc of water every 4-6 hours 5. Always flush tube after feedings 6. Apply abdominal binder as necessary 7. Clamp G-tube after use and flush. Not much to add from a GI perspective at this point we will sign off Blayne Reeves MD November 18, 2017 17:42
--- NOTE | 2017-11-18 17:45 | PD.WCN.NOT ---
Wound Consult Description: Consult for Heel/sacral decubitus ulc per Dr Murcia. Communicated with: Dr Twin Junior RN Recommendation: Continue to apply Calazime skin protectant paste to bilateral buttocks. Continue to reposition patient Q2H and PRN for comfort. Continue to float heels off mattress surface. Additional Information: Patient seen with FARNAZ Junior on [address] for evaluation of heels and sacrum. Bilateral heels were visualized and noted to be intact without drainage and without odor. Scar tissue noted to left heel that is being floated off mattress surface. Patient positioned to her left side for assessment of bilateral buttocks, sacrum, coccyx which were also noted with intact skin. Patient was moist with dark liquid/soft stool and cleansed with a new underpad placed. Calazime was applied to bilateral buttocks for moisture. Patient positioned to her left side prior to leaving room. Hiral Fernandes [facility] November 18, 2017 17:45
[2017-11-18] MEDS ORDERED: MIDAZOLAM HCL 2 MG/2 ML VIAL ONE (17:46)
[2017-11-18] MEDS: ATORVASTATIN 40 MG TAB PO SCH (21:12)
[2017-11-18 22:08] LABS: PHOSPHORUS 3.7 MG/DL (2.5-4.9)
[2017-11-19] VITALS (12 sets, daily range): BP systolic 133–177; BP diastolic 59–82; PULSE 54–77; RESP 15–16; TEMP 98.3–98.7; O2SAT 96–100
[2017-11-19] MEDS: metroNIDAZOLE 500 MG INJ 100 ML IV SCH ×4 (01:51→18:00)
[2017-11-19] MEDS: hydrALAZINE HCL 20 MG/ML VIAL IV PUSH PRN ×3 (03:24→11:36)
[2017-11-19] MEDS: RESP: ALBUTEROL 2.5 MG/IPRATROPIUM 0.5 MG NEB (SCH) NEB ×4 (03:43→20:00)
--- NOTE | 2017-11-19 04:34 | RADRPT ---
EXAM DATE/TIME: 11/19/2017 03:07 [place] COMPARISON: CHEST SINGLE AP, November 18, 2017, 3:31. INDICATIONS : Respiratory failure. MEDICAL HISTORY : Hypertension. Cerebrovascular accident. Confusion. Afib. Coronary artery disease. Headache. Kid giuseppe stones. Schizophrenia. Bipolar disorder. Depression. Anxiety. MRSA. VRE SURGICAL HISTORY : Coronary artery stent. Tonsillectomy. Hysterectomy. scection. ENCOUNTER: Subsequent ACUITY: 1 week PAIN SCORE: Non-responsive. LOCATION: Bilateral chest FINDINGS: A single AP supine view of the chest demonstrates the lungs to be symmetrically aerated without evide nce of mass, infiltrate or effusion. The cardiomediastinal contours are unremarkable. Osseous struc tures are intact. The endotracheal tube remains in place with the tip approximately 5 cm above the ca yoshi. The previously noted nasogastric tube has been removed. CONCLUSION: 1. Interval removal of nasogastric tube. 2. The lungs remain clear. Rosales Jay MD on November 19, 2017 at 4:32 Board Certified Radiologist. This report was verified electronically.
[2017-11-19 04:51] LABS: ALBUMIN 2.5 GM/DL (3.4-5.0); AST (GOT) 13 U/L (15-37); BICARBONATE 24.7 MEQ/L (21.0-32.0); BLOOD UREA NITROGEN 23 MG/DL (7-18); CALCIUM 8.4 MG/DL (8.5-10.1); CHLORIDE 114 MEQ/L (98-107); CREATININE 1.76 MG/DL (0.50-1.00); GLOMERULAR FILTRATION RATE 29 ML/MIN (>89); GLUCOSE,RANDOM 118 MG/DL (74-106); MAGNESIUM 1.8 MG/DL (1.5-2.5); SODIUM (NA) 150 MEQ/L (136-145)
[2017-11-19 04:52] LABS: ALT (GPT) 10 U/L (10-53); PHOSPHORUS 3.2 MG/DL (2.5-4.9)
[2017-11-19 04:54] LABS: ALKALINE PHOSPHATASE 70 U/L (45-117); TOTAL BILIRUBIN ADULT 0.5 MG/DL (0.2-1.0); TOTAL PROTEIN 6.8 GM/DL (6.4-8.2)
[2017-11-19] MEDS: PIPERACIL-TAZO 2.25 GM PREMIX 50 ML IV SCH ×3 (05:19→17:00)
[2017-11-19] MEDS: INSULIN NovoLIN REGULAR SUPPLEMENTAL SCALE SQ SCH ×3 (05:20→17:00)
[2017-11-19] MEDS: FREE WATER G-TUBE SCH ×3 (05:20→17:00)
[2017-11-19 06:41] LABS: AUTOMATED NEUTROPHIL # 11.1 TH/MM3 (1.8-7.7); BASOPHIL # 0.1 TH/MM3 (0-0.2); BASOPHIL % 0.5 % (0.0-2.0); EOSINOPHIL # 0.2 TH/MM3 (0-0.4); EOSINOPHIL % 1.7 % (0.0-4.0); HEMOGLOBIN 9.4 GM/DL (11.6-15.3); LYMPH % 11.7 % (9.0-44.0); LYMPHOCYTE # 1.6 TH/MM3 (1.0-4.8); MEAN CELL VOLUME 81.4 FL (80.0-100.0); MEAN CORPUSCULAR HEMOGLOBIN 25.6 PG (27.0-34.0); MEAN CORPUSCULAR HGB CONC 31.4 % (32.0-36.0); MONOCYTE # 0.5 TH/MM3 (0-0.9); NEUT % 82.1 % (16.0-70.0); PLATELET COUNT 245 TH/MM3 (150-450); RED BLOOD COUNT 3.69 MIL/MM3 (4.00-5.30); RED CELL DISTRIBUTION WIDTH 18.1 % (11.6-17.2); WHITE BLOOD COUNT 13.6 TH/MM3 (4.0-11.0)
[2017-11-19] MEDS: POLYETHYLENE GLYCOL 17 GM PKG PO SCH (07:58)
[2017-11-19] MEDS: SENNOSIDES SYRUP 8.8 MG/5 ML CUP PO SCH ×2 (07:58→20:51)
[2017-11-19] MEDS: CHLORHEXIDINE 0.12% (ORAL KIT) 15 ML CUP MT SCH ×2 (07:59→20:22)
[2017-11-19] MEDS: LACTULOSE SYRUP 20 GM/30 ML CUP PO SCH (07:59)
[2017-11-19] MEDS: DOCUSATE SODIUM 100 MG/10 ML UDC PO SCH ×2 (07:59→20:51)
[2017-11-19] MEDS: LANSOPRAZOLE SOLUTAB 30 MG TAB NG SCH (08:00)
[2017-11-19] MEDS: SERTRALINE HCL 50 MG TAB PO SCH (08:00)
[2017-11-19] MEDS: MUPIROCIN 2% OINT 1 APPLIC/GM SYR EACH NARE SCH ×2 (08:00→20:50)
[2017-11-19] MEDS: GABAPENTIN 100 MG CAP PO SCH ×2 (08:00→20:51)
[2017-11-19] MEDS: ARTIFICIAL TEARS OPTH SOLN 15 ML BTL EACH EYE SCH ×2 (08:00→20:50)
[2017-11-19] MEDS: ASPIRIN 81 MG CHEW TAB CHEW SCH (08:00)
[2017-11-19] MEDS: risperiDONE 0.5 MG TAB PO SCH ×3 (08:00→17:00)
[2017-11-19] MEDS: METOPROLOL TARTRATE 25 MG TAB PO SCH ×2 (08:01→20:51)
[2017-11-19] MEDS: SODIUM CHLORIDE 0.9% FLUSH 10 ML FLUSH IV FLUSH SCH ×2 (08:01→20:50)
--- NOTE | 2017-11-19 12:40 | HHI.CCPN ---
Subjective Remarks/Hospital Course This is a 62yF with history of stroke and admitted for acute colitis and multi- organism UTI. She has a history of dysphagia and was currently NPO on tube feeding. Today she had sudden onset of acute hypoxia with spo2 82% on nc o2. she was placed on NRB. She has noted ronchi bilaterally. she has significant edema and grossly appears volume overloaded. she was admitted with Cr >3 and has been gently diuresed and SIMBA is slowly improving. rapid response was called and she was emergently transferred to the ICU. due to her current mental status (and reported baseline mental status), no additional information is obtainable from the patient, and she only moans. ABG demonstrates severe respiratory acidosis. I attempted to contact her son and medical decision maker but was unable to reach him. Palliative care is following and has also not been able to reach him today. ROS unobtainable. 11/14: respiratory status improving. acute hypercarbic failure resolved. on 3L nc. mental status back to baseline. lungs are much clearer today. 11/16: LALA hand transferred to intensive care unit due to acute hypoxemia/ hypercapnic respiratory failure on the floor. Patient received 40 mg furosemide and was placed on noninvasive ventilation by hospitalist overnight. Eyes are open. Patient has chronic weakness in left upper extremity and lower extremity secondary to a right MCA CVA several years ago. Admitted with abdominal pain. Sigmoid endoscopy revealed colitis. C. difficile is still pending. Possible SMA stenosis on imaging however evaluated by Dr. Guerrero that he is to be a surgical abdomen at this time.. Currently seen on BiPAP and follows commands with right upper lower extremities. 11/17: Remains orotracheally intubated. Currently on PSV trial 10-30%. Will initiate tube feeding today. Hemodynamically stable. 11/18: Tube feeding currently on hold for plan PEG tube today. Remains orotracheally intubated. Arousable and stares at you on physical examination. Appears comfortable on the ventilator and afebrile Subjective 11/19: T-max 99.8. Currently afebrile. Status post PEG tube placement yesterday. Will attempt extubation today. Arousable and stares at you on physical examination again. FiO2 at 30%. Objective Vital Signs Date Time Temp Pulse Resp B/P (MAP) Pulse Ox O2 Delivery O2 Flow Rate FiO2 11/19/17 11:47 100 30 11/19/17 08:00 98.7 77 16 161/74 (103) 11/19/17 07:00 Mechanical Ventilator 11/15/17 20:15 2.00 Intake and Output 11/19/17 11/19/17 11/20/17 08:00 16:00 00:00 Intake Total 400 ml Output Total 700 ml Balance -300 ml Result Diagram: 11/19/17 0407 11/19/17 0407 Other Results Microbiology Date/Time Source Procedure Growth Status 11/16/17 12:30 Blood Peripheral Aerobic Blood Culture - Preliminary NO GROWTH IN 3 DAYS Resulted 11/16/17 12:30 Blood Peripheral Anaerobic Blood Culture - Preliminary NO GROWTH IN 3 DAYS Resulted 11/16/17 08:40 Urine Catheterized Urine Urine Culture - Final Pippa Albicans Pseudomonas Aeruginosa Multi-Drug Resistant Complete Imaging Last Impressions Chest X-Ray 11/19/17 0600 Signed Impressions: Service Date/Time: Sunday, November 19, 2017 03:07 - CONCLUSION: 1. Interval removal of nasogastric tube. 2. The lungs remain clear. Rosales Jay MD Lower Extremity Ultrasound 11/16/17 0000 Signed Impressions: Service Date/Time: Thursday, November 16, 2017 08:49 - CONCLUSION: No evidence of deep venous thrombosis in either lower extremity. Chetan Beltre MD Abdomen X-Ray 11/16/17 0000 Signed Impressions: Service Date/Time: Thursday, November 16, 2017 08:03 - CONCLUSION: Gastric tube tip and side-port project within the stomach. Chetan Beltre MD Abdomen Ultrasound 11/14/17 0000 Signed Impressions: Service Date/Time: October 07:56 - CONCLUSION: 1. There is elevated velocity within the proximal SMA which raises the possibility of a focal stenosis. 2. The vessels imaged and appear to be patent. Yo Joiner MD Abdomen/Pelvis CT 11/10/17 0601 Signed Impressions: Service Date/Time: Friday, November 10, 2017 07:44 - CONCLUSION: 1.Focal abnormal circumferential wall thickening involving the descending colon at the level of the hepatic flexure with significant adjacent fluid tracking within the right paracardiac color. Given the extensive atherosclerosis and focal finding concern is for possible infarct. Infection is also within the differential diagnosis. 2. Interval placement of a right-sided percutaneous nephrostomy tube. Stable appearance of the right kidney with multiple renal stones. Josefa Hair MD Head CT 11/10/17 0000 Signed Impressions: Service Date/Time: Friday, November 10, 2017 11:22 - CONCLUSION: Stable exam. No acute abnormality.. Josefa Hair MD Objective Remarks GENERAL: 62-year-old female currently orotracheally intubated SKIN: Warm and dry. Well healed sacral/heel ulcers HEAD: Atraumatic. Normocephalic. EYES: Pupils equal and round 3 mm reactive to 2 bilaterally. No scleral icterus. No injection or drainage. ENT: No nasal bleeding or discharge. Mucous membranes pink and moist. NG tube in left nares NECK: Trachea midline. No JVD. CARDIOVASCULAR: Tachycardic in a sinus arrhythmia. S1, S2. No S4, S3. Without murmur. RESPIRATORY: Improved rhonchorous breath sounds appreciated anteriorly posteriorly in bilateral upper and lower lung [place]. No accessory muscle use. GASTROINTESTINAL: Abdomen soft, non-tender, nondistended. Hepatic and splenic margins not palpable. MUSCULOSKELETAL: Extremities 1+ bilateral lower extremity edema. No obvious deformities. : Right nephrostomy tube in place with drainage NEUROLOGICAL: Awake and alert. Patient has weakness in left upper lower extremity with contracted left upper extremity. Follows commands with right upper extremities. Urinary Catheter: Yes Assessment to: Continue Rebolledo insert reason: Prolonged Immobilization Vascular Central Line Catheter: No Assessment to: Continue A/P Assessment and Plan Neuro/Psych: Bipolar/schizophrenia History of right MCA CVA with left-sided weakness Chronic narcotic/opioid use with oxycodone/acetaminophen Currently requiring no sedation while on ventilator Acetaminophen 650 mg by tube every 6 hours as needed fever/pain Use Ofirmev 1 g IV every 8 hours if n.p.o. for fever/pain Currently on Risperdal 0.5 mg by tube 3 times daily. Continue along with sertraline 50 mg p.o. daily Continue gabapentin 100 mg twice daily CV: Essential hypertension Hyperlipidemia Coronary artery disease with stents to the RCA and LAD Continue aspirin 81 mg p.o. daily 2D echocardiogram 08/15 revealed EF 60-65%. No regional wall motion abnormality. Mild TR. Pulmonary arterial pressure 37 mmHg Continue metoprolol tartrate 25 mg p.o. twice daily. Holding home medication hydralazine 50 mg p.o. 3 times daily. Resume when clinically indicated Resp: Acute hypoxic hypercapnic respiratory failure secondary to aspiration PVRC - PSV 10/ at 30% Chest x-ray revealed bilateral lower lobe atelectasis. No focal infiltrates and /or effusions. Ventilator bundle Aggressive pulmonary toilet including albuterol/ipratropium aerosols every 6 hours with albuterol aerosols 2 hours as needed dyspnea Chest x-ray in a.m. 11/20 GI: Aspiration Gastroesophageal reflux disease Sigmoid diverticulosis Pancolitis Internal and external hemorrhoids Status post percutaneous and endoscopic gastrostomy tube placed 11/18 Currently on lansoprazole 30 mg by tube daily. On omeprazole 20 mg daily at home Docusate sodium 100 mg twice daily, senna 8.8 mg twice daily Initiate tube feeding daily via PEG tube with Glucerna 1.5 goal 50 cc an hour per nutrition recommendations Patient had sigmoidoscopy endoscopy 11/15 revealed sigmoid diverticulosis, pancolitis with internal and external hemorrhoids. CT abdomen/pelvis revealed descending colon wall thickening. Atherosclerotic vascular disease. Right hydronephrosis. Atrophic left kidney. Evaluated by general surgery/Dr. Guerrero that he is to be a surgical abdomen. Noted high velocities in SMA. Cannot anticoagulate due to history of bleeding : Status post right nephrostomy tube Nephrolithiasis with right hydronephrosis Renal ultrasound revealed atrophic left kidney with right hydronephrosis with pigtail in place/nephrostomy tube Endo: Diabetes mellitus type 2 Holding insulin detemir 7 units at night. Sliding-scale insulin with Novolin R with Accu-Cheks every 6 hours to maintain euglycemia/low regimen Renal: Acute kidney injury in the setting of chronic kidney disease stage III a Right hydronephrosis status post right nephrostomy tube Right nephrolithiasis Maintain nephrostomy tube Monitor urine output Accurate I's and O's A.m. BMP pending Heme: Leukocytosis Normocytic anemia Monitor CBC daily. Follow trends. No indication for transfusion of blood products at this time. Follow-up coags ID: Multidrug-resistant ESBL positive E. coli/multidrug-resistant Pseudomonas and Enterococcus faecalis UTI likely contaminant Currently of piperacillin/tazobactam and metronidazole IV. Blood cultures 2 on admission were no growth tod ate. Urine revealed ESBL positive E. coli. Repeat blood cultures 2, urine and sputum 11/16 with sputum not completed. FEN: Hypernatremia Hypokalemia -acute We will place on half normal saline at 50 cc while currently n.p.o. We will give 40 mEq potassium by tube 1 now. Recheck in a.m. MSK: Well healed Sacral decubitus/heel ulcers Wound care evaluation and treat Access -Utilize peripheral IV. Central line if indicated Prophylaxis -GI -lansoprazole -DVT -SCD/holding pharmacological prophylaxis in light of history of hematuria on TSOAC Level 2 follow-up Carlos Murcia MD November 19, 2017 12:40
[2017-11-19] MEDS ORDERED: POTASSIUM CHLORIDE 20 MEQ PWD PACKET PO ONE (12:45)
[2017-11-19] MEDS ORDERED: DEXAMETHASONE SOD PHOS 4 MG/ML VIAL IV PUSH SCH (14:30)
[2017-11-19] MEDS: SODIUM CHLOR 0.45% 1000 ML INJ 1,000 ML IV SCH (15:33)
--- NOTE | 2017-11-19 16:54 | EKG ---
Date Performed: 11/18/2017 Time Performed: 00:17:28 PTAGE: 62 years EKG: Sinus rhythm . Lead(s) unsuitable for analysis: V4 Prolonged QT interval Borderline ECG PREVIOUS TRACING : 11/16/2017 09.05 Since the previous tracing, no significant change noted DOCTOR: Ray Whitman Interpretating Date/Time 11/19/2017 16:53:27
--- NOTE | 2017-11-19 16:56 | HHI.HCPN ---
Reason for visit a. To assist with evaluation and management of symptoms including: dysphagia ,dyspnea, pain, encephalopathy b. To assist medical decision maker(s) with: better understanding of current medical conditions; weighing benefits/burdens of medical treatment options; making medical treatment decisions. . Subjective/Interval History Patient was transferred back to [facility] on 11/16/2017 secondary to acute hypoxemic/ hypercapnic respiratory failure requiring intubation. Patient remains intubated on mechanical, will likely attempt extubation tomorrow 11/20/2017. FiO2 at 30%. Status post PEG tube placement yesterday 11/18. Dietary recommending Glucerna 1.5 at 30 mL's per hour increase 10 mL's per hour as tolerated to goal rate of 50 mL's per hour. Recent lab work from 11/19/2017 reviewed: =WBC: 13.6, hemoglobin 9.4, hematocrit 30.0, platelets 245, neutrophils 82.1% =Sodium: 150, potassium 3.4, chloride 114, carbon dioxide 24.7, glucose 118, calcium 8.4, phosphorus 3.2, magnesium 1.8 =BUN: 23, creatinine 1.76, GFR 29 =Total bilirubin: 0.5, AST 13, ALT 10, alkaline phosphatase 70 Patient arouses to verbal stimuli. Patient appears to squeeze my hand on command but does not follow any other simple 1 step commands. Following exam call to cong Cadena; he expresses ongoing aggressive goals. Questions answered to the best of my ability. Plan for an patient to return to shelter at discharge. . Advance Directives Health Care Surrogate: Copy in medical record Advance Directive Specifics Date completed: 03/2013 Health Care Surrogate(s): Cong Wilson--this was misspelled by person completing form son's name is Daniela Objective Vital Signs Date Time Temp Pulse Resp B/P (MAP) Pulse Ox O2 Delivery O2 Flow Rate FiO2 11/19/17 15:45 100 30 11/19/17 12:00 30 11/19/17 12:00 98.5 70 15 174/82 (112) 100 11/19/17 12:00 70 11/19/17 11:47 100 30 11/19/17 08:42 30 11/19/17 08:42 98 30 11/19/17 08:00 30 11/19/17 08:00 98.7 77 16 161/74 (103) 100 11/19/17 08:00 77 11/19/17 07:00 100 Mechanical Ventilator 30 11/19/17 04:00 98.3 70 16 164/77 (106) 100 11/19/17 04:00 54 11/19/17 04:00 30 11/19/17 03:44 100 30 11/19/17 00:00 30 11/19/17 00:00 54 11/19/17 00:00 98.3 54 16 133/60 (84) 100 11/18/17 20:37 100 30 11/18/17 20:00 98.6 70 16 134/63 (86) 100 11/18/17 20:00 30 11/18/17 20:00 70 11/18/17 19:00 100 Mechanical Ventilator 30 11/18/17 18:00 72 Intake & Output 11/19/17 11/19/17 07:00 19:00 Intake Total 1400 ml Output Total 700 ml Balance 700 ml IV Total 1200 ml Other 200 ml Output Urine Total 700 ml Drainage Total 0 ml # Bowel Movements 2 . Physical Exam CONSTITUTIONAL/GENERAL: Well-nourished female, intubated on mechanical ventilator TUBES/LINES/DRAINS: Peripheral IV upper extremity, ETT, PEG, Podus boots, Rebolledo catheter SKIN: No jaundice, rashes, or lesions. No wounds seen anteriorly. Skin warm/dry CARDIOVASCULAR: Regular rate and rhythm without murmur. No JVD. Peripheral pulses symmetric. RESPIRATORY/CHEST: Symmetric, unlabored respirations. Breath sounds diminished bilaterally. GASTROINTESTINAL: Abdomen soft, nontender, nondistended. No hepato-splenomegaly , or palpable masses. Bowel sounds hypoactive. GENITOURINARY: Without palpable bladder distension. Rebolledo catheter in place. MUSCULOSKELETAL: Extremities without clubbing, cyanosis. Traqce pedal edema. + Edema right upper extremity. Left foot drop? NEUROLOGICAL: Lethargic; arouses to verbal stimuli. Stares vacantly. Possibly squeezing hand on command but does not follow any other simple, 1 step commands. PSYCHIATRIC: Calm with no apparent anxiety. . Diagnostic Tests Laboratory Laboratory Tests Test 11/17/17 05:14 11/17/17 06:03 11/17/17 17:55 11/18/17 04:05 White Blood Count 12.0 TH/MM3 (4.0-11.0) 12.4 TH/MM3 (4.0-11.0) Red Blood Count 3.59 MIL/MM3 (4.00-5.30) 3.46 MIL/MM3 (4.00-5.30) Hemoglobin 9.2 GM/DL (11.6-15.3) 9.0 GM/DL (11.6-15.3) Hematocrit 29.4 % (35.0-46.0) 28.4 % (35.0-46.0) Mean Corpuscular Volume 81.9 FL (80.0-100.0) 82.0 FL (80.0-100.0) Mean Corpuscular Hemoglobin 25.6 PG (27.0-34.0) 25.9 PG (27.0-34.0) Mean Corpuscular Hemoglobin Concent 31.2 % (32.0-36.0) 31.6 % (32.0-36.0) Red Cell Distribution Width 17.6 % (11.6-17.2) 18.2 % (11.6-17.2) Platelet Count 275 TH/MM3 (150-450) 265 TH/MM3 (150-450) Mean Platelet Volume 8.6 FL (7.0-11.0) 8.6 FL (7.0-11.0) Neutrophils (%) (Auto) 75.7 % (16.0-70.0) 81.2 % (16.0-70.0) Lymphocytes (%) (Auto) 18.0 % (9.0-44.0) 12.9 % (9.0-44.0) Monocytes (%) (Auto) 4.7 % (0.0-8.0) 3.9 % (0.0-8.0) Eosinophils (%) (Auto) 1.1 % (0.0-4.0) 1.6 % (0.0-4.0) Basophils (%) (Auto) 0.5 % (0.0-2.0) 0.4 % (0.0-2.0) Neutrophils # (Auto) 9.1 TH/MM3 (1.8-7.7) 10.1 TH/MM3 (1.8-7.7) Lymphocytes # (Auto) 2.2 TH/MM3 (1.0-4.8) 1.6 TH/MM3 (1.0-4.8) Monocytes # (Auto) 0.6 TH/MM3 (0-0.9) 0.5 TH/MM3 (0-0.9) Eosinophils # (Auto) 0.1 TH/MM3 (0-0.4) 0.2 TH/MM3 (0-0.4) Basophils # (Auto) 0.1 TH/MM3 (0-0.2) 0.1 TH/MM3 (0-0.2) CBC Comment AUTO DIFF DIFF FINAL Differential Total Cells Counted 100 Neutrophils % (Manual) 77 % (16-70) Band Neutrophils % 4 % (0-6) Lymphocytes % 15 % (9-44) Monocytes % 2 % (0-8) Neutrophils # (Manual) 10.0 TH/MM3 (1.8-7.7) Metamyelocytes 1 % (0-1) Myelocytes 1 % (0-0) Differential Comment FINAL DIFF MANUAL Platelet Estimate NORMAL (NORMAL) Platelet Morphology Comment NORMAL (NORMAL) Blood Urea Nitrogen 39 MG/DL (7-18) 29 MG/DL (7-18) Creatinine 1.93 MG/DL (0.50-1.00) 1.80 MG/DL (0.50-1.00) Random Glucose 125 MG/DL (74-106) 124 MG/DL (74-106) Calcium Level 8.3 MG/DL (8.5-10.1) 8.2 MG/DL (8.5-10.1) Phosphorus Level 1.2 MG/DL (2.5-4.9) 3.1 MG/DL (2.5-4.9) 2.4 MG/DL (2.5-4.9) Magnesium Level 2.0 MG/DL (1.5-2.5) 2.0 MG/DL (1.5-2.5) Sodium Level 152 MEQ/L (136-145) 151 MEQ/L (136-145) Potassium Level 2.8 MEQ/L (3.5-5.1) 3.9 MEQ/L (3.5-5.1) 3.5 MEQ/L (3.5-5.1) Chloride Level 115 MEQ/L (98-107) 115 MEQ/L (98-107) Carbon Dioxide Level 25.4 MEQ/L (21.0-32.0) 26.4 MEQ/L (21.0-32.0) Anion Gap 12 MEQ/L (5-15) 10 MEQ/L (5-15) Estimat Glomerular Filtration Rate 26 ML/MIN (>89) 28 ML/MIN (>89) Blood Gas Puncture Site RT RADIAL Blood Gas Patient Temperature 98.6 Blood Gas HCO3 27 mmol/L (22-26) Blood Gas Base Excess 4.0 mmol/L (-2-2) Blood Gas Oxygen Saturation 96 % (90-100) Arterial Blood pH 7.48 (7.380-7.420) Arterial Blood Partial Pressure CO2 37 mmHg (38-42) Arterial Blood Partial Pressure O2 84 mmHg (61-120) Arterial Blood Oxygen Content 11.9 Vol % (12.0-20.0) Arterial Blood Carboxyhemoglobin 1.4 % (0-4) Arterial Blood Methemoglobin 0.9 % (0-2) Blood Gas Hemoglobin 8.8 G/DL (12.0-16.0) Blood Gas Ventilator Setting Blood Gas Inspired Oxygen 30 % Total Protein 6.6 GM/DL (6.4-8.2) Albumin 2.3 GM/DL (3.4-5.0) Alkaline Phosphatase 64 U/L (45-117) Aspartate Amino Transf (AST/SGOT) 18 U/L (15-37) Alanine Aminotransferase (ALT/SGPT) 10 U/L (10-53) Total Bilirubin 0.4 MG/DL (0.2-1.0) Lipase 427 U/L (73-393) Test 11/18/17 12:00 11/18/17 20:28 11/19/17 04:07 Urine Eosinophils RARE /HPF (NONE SEEN) Potassium Level 3.6 MEQ/L (3.5-5.1) 3.4 MEQ/L (3.5-5.1) Phosphorus Level 3.7 MG/DL (2.5-4.9) 3.2 MG/DL (2.5-4.9) White Blood Count 13.6 TH/MM3 (4.0-11.0) Red Blood Count 3.69 MIL/MM3 (4.00-5.30) Hemoglobin 9.4 GM/DL (11.6-15.3) Hematocrit 30.0 % (35.0-46.0) Mean Corpuscular Volume 81.4 FL (80.0-100.0) Mean Corpuscular Hemoglobin 25.6 PG (27.0-34.0) Mean Corpuscular Hemoglobin Concent 31.4 % (32.0-36.0) Red Cell Distribution Width 18.1 % (11.6-17.2) Platelet Count 245 TH/MM3 (150-450) Mean Platelet Volume 9.0 FL (7.0-11.0) Neutrophils (%) (Auto) 82.1 % (16.0-70.0) Lymphocytes (%) (Auto) 11.7 % (9.0-44.0) Monocytes (%) (Auto) 4.0 % (0.0-8.0) Eosinophils (%) (Auto) 1.7 % (0.0-4.0) Basophils (%) (Auto) 0.5 % (0.0-2.0) Neutrophils # (Auto) 11.1 TH/MM3 (1.8-7.7) Lymphocytes # (Auto) 1.6 TH/MM3 (1.0-4.8) Monocytes # (Auto) 0.5 TH/MM3 (0-0.9) Eosinophils # (Auto) 0.2 TH/MM3 (0-0.4) Basophils # (Auto) 0.1 TH/MM3 (0-0.2) CBC Comment DIFF FINAL Differential Comment Blood Urea Nitrogen 23 MG/DL (7-18) Creatinine 1.76 MG/DL (0.50-1.00) Random Glucose 118 MG/DL (74-106) Total Protein 6.8 GM/DL (6.4-8.2) Albumin 2.5 GM/DL (3.4-5.0) Calcium Level 8.4 MG/DL (8.5-10.1) Magnesium Level 1.8 MG/DL (1.5-2.5) Alkaline Phosphatase 70 U/L (45-117) Aspartate Amino Transf (AST/SGOT) 13 U/L (15-37) Alanine Aminotransferase (ALT/SGPT) 10 U/L (10-53) Total Bilirubin 0.5 MG/DL (0.2-1.0) Sodium Level 150 MEQ/L (136-145) Chloride Level 114 MEQ/L (98-107) Carbon Dioxide Level 24.7 MEQ/L (21.0-32.0) Anion Gap 11 MEQ/L (5-15) Estimat Glomerular Filtration Rate 29 ML/MIN (>89) . Result Diagram: 11/19/1740611/19/17406 Imaging Last 72 hours Impressions Chest X-Ray 11/19/17599 Signed Impressions: Service Date/Time: Sunday, November 19, 2017 03:07 - CONCLUSION: 1. Interval removal of nasogastric tube. 2. The lungs remain clear. Rosales Jay MD Chest X-Ray 11/18/17599 Signed Impressions: Service Date/Time: Saturday, November 18, 2017 03:31 - CONCLUSION: No significant change. The lungs are clear. Rosales Jay MD Chest X-Ray 11/17/17599 Signed Impressions: Service Date/Time: Friday, November 17, 2017 03:20 - CONCLUSION: 1. Minimal basal atelectasis. Endotracheal tube and nasogastric tube in good position. Pascual Jennings MD . Procedures 11/16/2017: Intubation 11/18/2017: PEG tube placement . Assessment and Plan Disease Oriented Problem List: (1) Anemia (2) Hematuria (3) Acute kidney injury (4) ESBL (extended spectrum beta-lactamase) producing bacteria infection (5) Atrial fibrillation (6) CAD (coronary artery disease) (7) Schizophrenia (8) Dyslipidemia (9) UTI (urinary tract infection) (10) Hydronephrosis (11) Severe sepsis with acute organ dysfunction (12) right MCA stroke 2013, with left hemiparesis (13) hypertension (14) history of decubiti (15) chronic kidney disease (16) coronary artery disease, history of stents (17) dislodging of nephrostomy tube, replaced 07/17/17 Symptom Scale: (1) Confusion 0-10 Scale: Unable to quantify (2) Dyspnea 0-10 Scale: Unable to quantify (3) pain 0-10 Scale: Unable to quantify (4) Dysphagia 0-10 Scale: Unable to quantify Pertinent Non-Medical Issues Psychosocial: Spiritual: Legal:Patient confused baseline, does not appear to have capacity to make medical decisions does not appear she will regain capacity. Her son is designated as healthcare surrogate on document dated 2012. They have not been able to reach him this admission for consent, of note palliative care was consulted on this patient in July 2017 and at that time there was no answer or voicemail on my multiple attempts. Her review further of old records in May 2017 case management requested wellness checks at patient's son possible address, this person did not live there. Apparently at some point in 2014 the son was incarcerated per notes. Not clear his location at this time , per palliative executive secretary social welfare review of [employer] record search 10/16/17 appears a Dev Wilson was arrested through [employer] however he was not incarcerated was released-- not clear if this person is related to pt. Will request [employer] search to identify possible decision makers. 11/11/17 palliative executive secretary social welfare reviewed findings of accurint report and social network search--able to locate and initiate contact through Son's girlfriend number, son is actually DANIELA Wilson [phone] Ethical issues impacting care: none identified Important Contacts SON/HCS Daniela Wilson [phone] NOT Dev Wilson [phone], [phone]-->this # is NOT anyone related to pt . Prognosis This patient has multiple chronic medical conditions. She has been debilitated and lives in a shelter long-term. Due to these multiple conditions, she will likely continue to have ongoing complications, setbacks and recurrent hospitalizations. . Code Status: Full Code Plan * Legal decision maker:Patient confused baseline, does not appear to have capacity to make medical decisions does not appear she will regain capacity. Her son is designated as healthcare surrogate on document dated 2012. Son is Daniela Wilson at [phone]. * Goals: Aggressive for now, continue all available treatments, including full code. * CODE STATUS: full code * Following exam call to cong Cadena. Patient remains NPO at this time; patient 's son indicating he plans to proceed with PEG tube placement if indicated. Goals remain aggressive. Update provided on patient's clinical condition, plan to transfer patient to regular floor later today. Questions answered to the best of my ability. * SYMPTOMS: --Encephalopathy-patient status post CVA likely with some residual cognitive deficits. Also with long psychiatric history per records. May be baseline status? --Dyspnea-EMS activated for respiratory distress, low O2 sats. CXR no acute process. Rapid response called 11/13/17 and again on 11/16/17; currently intubated. Possible extubation tomorrow 11/20/17 --Pain-patient appears very tender/painful with minimal touch and exam to both lower extremities. Unable to determine specific location or quality of pain she begins moaning with any type of exam to lower extremities. No obvious erythema or edema. 1+ pedal edema. Bilateral foot drop. ? Etiology chronic immobility/bedbound status. It is noted she is on gabapentin 100 mg twice daily, may have some neuropathic pain. Consider uptitration. May require additional analgesics if pain persists/worsens , though difficult to further assess/quantify, will continue to evaluate. Appears comfortable when at rest and lower extremities are not disturbed. per d/w son pt w chronic pain to BLE since bedbound. May consider tylenol prn, cautious use of opiates. Patient today able to verbalize pain to her legs. She is unable to quantify or qualify but says they always hurt. Her son confirmed this during discussion with him, he indicated she had been having some lower extremity of pain since becoming immobile and bedbound. Current orders for IV morphine PRN- none administered in the past 24 hours. --Dysphagia- s/p multiple CVAs. Appears has had some degree of ongoing chronic dysphagia 2/2 to, with diet modifications in place. May be worsened this admission 2/2 to acute infectious process?, or progressive debility/ weakness, rec. ST cont to follow as swallowing ability may again improve to baseline, or she may require bypass feeding via PEG. NGT in place currently, gear design engineer has made TF recommendations. During May 2017 evaluation patient was tolerating pured diet with nectar thickened liquids. Status post PEG tube placement on 11/18/2017 * Palliative care will continue to follow during hospital course as condition evolves, to assist patient/decision-maker with understanding of medical conditions, weighing benefits/burdens of treatment options, for clarification of goals of treatment. Additionally will assist with any symptoms of palliative concern . Attestation To help prompt me to consider important information that might be impacting today's encounter and assessment, information from prior notes written by myself or my colleagues may have been "brought forward" into today's note. My signature on this note, however, is an attestation that I personally performed the exam, history, and/or decision-making noted today, and, unless otherwise indicated, the interactions with patient, family, and staff as well as the review of records all occurred today. I also attest that the listed assessment and stated plan reflect my best clinical judgment today based on the combination of historical information, prior notes, and today's exam/ interactions. When time spent is documented, it refers only to time spent today by the signer, or if indicated, combined time spent today by collaborating physician/nurse practitioner. . Amy Sommers November 19, 2017 16:56
[2017-11-19] MEDS: DEXAMETHASONE SOD PHOS 4 MG/ML VIAL IV PUSH SCH (20:50)
[2017-11-19] MEDS: ATORVASTATIN 40 MG TAB PO SCH (20:51)
[2017-11-20] VITALS (11 sets, daily range): BP systolic 137–181; BP diastolic 65–81; PULSE 55–78; RESP 16–27; TEMP 98.3–98.8; O2SAT 98–100
[2017-11-20] MEDS: FREE WATER G-TUBE SCH ×4 (00:11→17:02)
[2017-11-20] MEDS: PIPERACIL-TAZO 2.25 GM PREMIX 50 ML IV SCH ×4 (00:12→17:01)
[2017-11-20] MEDS: INSULIN NovoLIN REGULAR SUPPLEMENTAL SCALE SQ SCH ×4 (00:27→18:00)
[2017-11-20] MEDS: metroNIDAZOLE 500 MG INJ 100 ML IV SCH ×4 (01:28→18:20)
[2017-11-20] MEDS: DEXAMETHASONE SOD PHOS 4 MG/ML VIAL IV PUSH SCH ×2 (03:04→08:30)
[2017-11-20] MEDS: RESP: ALBUTEROL 2.5 MG/IPRATROPIUM 0.5 MG NEB (SCH) NEB ×4 (03:34→20:57)
[2017-11-20 04:35] LABS: HEMATOCRIT 29.1 % (35.0-46.0); HEMOGLOBIN 9.1 GM/DL (11.6-15.3); MEAN CELL VOLUME 82.2 FL (80.0-100.0); MEAN CORPUSCULAR HEMOGLOBIN 25.6 PG (27.0-34.0); MEAN CORPUSCULAR HGB CONC 31.2 % (32.0-36.0); MEAN PLATELET VOLUME 9.3 FL (7.0-11.0); PLATELET COUNT 257 TH/MM3 (150-450); RED BLOOD COUNT 3.55 MIL/MM3 (4.00-5.30); RED CELL DISTRIBUTION WIDTH 18.2 % (11.6-17.2); WHITE BLOOD COUNT 12.9 TH/MM3 (4.0-11.0)
[2017-11-20 04:50] LABS: BICARBONATE 20.6 MEQ/L (21.0-32.0); CALCIUM 8.5 MG/DL (8.5-10.1); CREATININE 1.6 MG/DL (0.50-1.00)
[2017-11-20] MEDS: CHLORHEXIDINE 0.12% (ORAL KIT) 15 ML CUP MT SCH ×2 (08:28→20:00)
[2017-11-20] MEDS: LANSOPRAZOLE SOLUTAB 30 MG TAB NG SCH (08:28)
[2017-11-20] MEDS: MUPIROCIN 2% OINT 1 APPLIC/GM SYR EACH NARE SCH ×2 (08:28→21:58)
[2017-11-20] MEDS: GABAPENTIN 100 MG CAP PO SCH ×2 (08:28→21:48)
[2017-11-20] MEDS: ASPIRIN 81 MG CHEW TAB CHEW SCH (08:29)
[2017-11-20] MEDS: SODIUM CHLORIDE 0.9% FLUSH 10 ML FLUSH IV FLUSH SCH ×2 (08:29→21:47)
[2017-11-20] MEDS: SENNOSIDES SYRUP 8.8 MG/5 ML CUP PO SCH ×2 (08:30→21:49)
[2017-11-20] MEDS: POLYETHYLENE GLYCOL 17 GM PKG PO SCH (08:30)
[2017-11-20] MEDS: METOPROLOL TARTRATE 25 MG TAB PO SCH ×2 (08:30→21:58)
[2017-11-20] MEDS: LACTULOSE SYRUP 20 GM/30 ML CUP PO SCH (08:30)
[2017-11-20] MEDS: risperiDONE 0.5 MG TAB PO SCH ×3 (08:30→17:01)
[2017-11-20] MEDS: DOCUSATE SODIUM 100 MG/10 ML UDC PO SCH ×2 (08:30→21:47)
[2017-11-20] MEDS: SERTRALINE HCL 50 MG TAB PO SCH (08:33)
[2017-11-20] MEDS: ARTIFICIAL TEARS OPTH SOLN 15 ML BTL EACH EYE SCH ×2 (08:33→21:47)
--- NOTE | 2017-11-20 09:04 | HHI.CCPN ---
Subjective Remarks/Hospital Course This is a 62yF with history of stroke and admitted for acute colitis and multi- organism UTI. She has a history of dysphagia and was currently NPO on tube feeding. Today she had sudden onset of acute hypoxia with spo2 82% on nc o2. she was placed on NRB. She has noted ronchi bilaterally. she has significant edema and grossly appears volume overloaded. she was admitted with Cr >3 and has been gently diuresed and SIMBA is slowly improving. rapid response was called and she was emergently transferred to the ICU. due to her current mental status (and reported baseline mental status), no additional information is obtainable from the patient, and she only moans. ABG demonstrates severe respiratory acidosis. I attempted to contact her son and medical decision maker but was unable to reach him. Palliative care is following and has also not been able to reach him today. ROS unobtainable. 11/14: respiratory status improving. acute hypercarbic failure resolved. on 3L nc. mental status back to baseline. lungs are much clearer today. 11/16: LALA hand transferred to intensive care unit due to acute hypoxemia/ hypercapnic respiratory failure on the floor. Patient received 40 mg furosemide and was placed on noninvasive ventilation by hospitalist overnight. Eyes are open. Patient has chronic weakness in left upper extremity and lower extremity secondary to a right MCA CVA several years ago. Admitted with abdominal pain. Sigmoid endoscopy revealed colitis. C. difficile is still pending. Possible SMA stenosis on imaging however evaluated by Dr. Guerrero that he is to be a surgical abdomen at this time.. Currently seen on BiPAP and follows commands with right upper lower extremities. 11/17: Remains orotracheally intubated. Currently on PSV trial 10-30%. Will initiate tube feeding today. Hemodynamically stable. 11/18: Tube feeding currently on hold for plan PEG tube today. Remains orotracheally intubated. Arousable and stares at you on physical examination. Appears comfortable on the ventilator and afebrile 11/19: T-max 99.8. Currently afebrile. Status post PEG tube placement yesterday. Will attempt extubation today. Arousable and stares at you on physical examination again. FiO2 at 30%. Subjective 11/20: Currently afebrile. Tolerating tube feeds are currently on hold. Patient did have a cuff leak yesterday therefore placed on dexamethasone 1 day. Cuff leak is apparent this a.m. Objective Vital Signs Date Time Temp Pulse Resp B/P (MAP) Pulse Ox O2 Delivery O2 Flow Rate FiO2 11/20/17 08:21 30 11/20/17 08:21 100 11/20/17 04:00 62 11/20/17 04:00 98.8 16 175/81 (112) 11/19/17 19:00 Mechanical Ventilator Intake and Output 11/20/17 11/20/17 11/20/17 07:59 15:59 23:59 Intake Total 535 ml Output Total 900 ml Balance -365 ml Result Diagram: 11/20/17 0351 11/20/17 0351 Other Results Microbiology Date/Time Source Procedure Growth Status 11/16/17 12:30 Blood Peripheral Aerobic Blood Culture - Preliminary NO GROWTH IN 3 DAYS Resulted 11/16/17 12:30 Blood Peripheral Anaerobic Blood Culture - Preliminary NO GROWTH IN 3 DAYS Resulted 11/16/17 08:40 Urine Catheterized Urine Urine Culture - Final Pippa Albicans Pseudomonas Aeruginosa Multi-Drug Resistant Complete Imaging Last Impressions Chest X-Ray 11/19/17 0600 Signed Impressions: Service Date/Time: Sunday, November 19, 2017 03:07 - CONCLUSION: 1. Interval removal of nasogastric tube. 2. The lungs remain clear. Rosales Jay MD Lower Extremity Ultrasound 11/16/17 0000 Signed Impressions: Service Date/Time: Thursday, November 16, 2017 08:49 - CONCLUSION: No evidence of deep venous thrombosis in either lower extremity. Chetan Beltre MD Abdomen X-Ray 11/16/17 0000 Signed Impressions: Service Date/Time: Thursday, November 16, 2017 08:03 - CONCLUSION: Gastric tube tip and side-port project within the stomach. Chetan Beltre MD Abdomen Ultrasound 11/14/17 0000 Signed Impressions: Service Date/Time: October 07:56 - CONCLUSION: 1. There is elevated velocity within the proximal SMA which raises the possibility of a focal stenosis. 2. The vessels imaged and appear to be patent. Yo Joiner MD Abdomen/Pelvis CT 11/10/17 0601 Signed Impressions: Service Date/Time: Friday, November 10, 2017 07:44 - CONCLUSION: 1.Focal abnormal circumferential wall thickening involving the descending colon at the level of the hepatic flexure with significant adjacent fluid tracking within the right paracardiac color. Given the extensive atherosclerosis and focal finding concern is for possible infarct. Infection is also within the differential diagnosis. 2. Interval placement of a right-sided percutaneous nephrostomy tube. Stable appearance of the right kidney with multiple renal stones. Josefa Hair MD Head CT 11/10/17 0000 Signed Impressions: Service Date/Time: Friday, November 10, 2017 11:22 - CONCLUSION: Stable exam. No acute abnormality.. Josefa Hair MD Objective Remarks GENERAL: 62-year-old female currently orotracheally intubated SKIN: Warm and dry. Well healed sacral/heel ulcers HEAD: Atraumatic. Normocephalic. EYES: Pupils equal and round 3 mm reactive to 2 bilaterally. No scleral icterus. No injection or drainage. ENT: No nasal bleeding or discharge. Mucous membranes pink and moist. NG tube in left nares NECK: Trachea midline. No JVD. CARDIOVASCULAR: Tachycardic in a sinus arrhythmia. S1, S2. No S4, S3. Without murmur. RESPIRATORY: Improved rhonchorous breath sounds appreciated anteriorly posteriorly in bilateral upper and lower lung [place]. No accessory muscle use. GASTROINTESTINAL: Abdomen soft, non-tender, nondistended. Hepatic and splenic margins not palpable. MUSCULOSKELETAL: Extremities 1+ bilateral lower extremity edema. No obvious deformities. : Right nephrostomy tube in place with drainage NEUROLOGICAL: Awake and alert. Patient has weakness in left upper lower extremity with contracted left upper extremity. Follows commands with right upper extremities. Urinary Catheter: Yes Assessment to: Continue Rebolledo insert reason: Prolonged Immobilization Vascular Central Line Catheter: No Assessment to: Continue A/P Assessment and Plan Neuro/Psych: Bipolar/schizophrenia History of right MCA CVA with left-sided weakness Chronic narcotic/opioid use with oxycodone/acetaminophen Currently requiring no sedation while on ventilator Acetaminophen 650 mg by tube every 6 hours as needed fever/pain Currently on Risperdal 0.5 mg by tube 3 times daily. Continue along with sertraline 50 mg p.o. daily Continue gabapentin 100 mg twice daily CV: Essential hypertension Hyperlipidemia Coronary artery disease with stents to the RCA and LAD Continue aspirin 81 mg p.o. daily 2D echocardiogram 2/15 revealed EF 60-65%. No regional wall motion abnormality. Mild TR. Pulmonary arterial pressure 37 mmHg Continue metoprolol tartrate 25 mg p.o. twice daily. Hydralazine 50 3 times daily. As needed Nitropaste and nicardipine drip Resp: Acute hypoxic hypercapnic respiratory failure secondary to aspiration PVRC - PSV 02/02 at 30% Chest x-ray revealed bilateral lower lobe atelectasis. No focal infiltrates and /or effusions. Ventilator bundle Aggressive pulmonary toilet including albuterol/ipratropium aerosols every 6 hours with albuterol aerosols 2 hours as needed dyspnea Chest x-ray in a.m. 11/20 GI: Aspiration Gastroesophageal reflux disease Sigmoid diverticulosis Pancolitis Internal and external hemorrhoids Status post percutaneous and endoscopic gastrostomy tube placed 11/18 Currently on lansoprazole 30 mg by tube daily. On omeprazole 20 mg daily at home Docusate sodium 100 mg twice daily, senna 8.8 mg twice daily Initiate tube feeding daily via PEG tube with Glucerna 1.5 goal 50 cc an hour per nutrition recommendations Patient had sigmoidoscopy endoscopy 11/15 revealed sigmoid diverticulosis, pancolitis with internal and external hemorrhoids. CT abdomen/pelvis revealed descending colon wall thickening. Atherosclerotic vascular disease. Right hydronephrosis. Atrophic left kidney. Evaluated by general surgery/Dr. Guerrero that he is to be a surgical abdomen. Noted high velocities in SMA. Cannot anticoagulate due to history of bleeding : Status post right nephrostomy tube Nephrolithiasis with right hydronephrosis Renal ultrasound revealed atrophic left kidney with right hydronephrosis with pigtail in place/nephrostomy tube Endo: Diabetes mellitus type 2 Holding insulin detemir 7 units at night. Sliding-scale insulin with Novolin R with Accu-Cheks every 6 hours to maintain euglycemia/low regimen Renal: Acute kidney injury in the setting of chronic kidney disease stage III a Right hydronephrosis status post right nephrostomy tube Right nephrolithiasis Maintain nephrostomy tube Monitor urine output Accurate I's and O's A.m. BMP pending Heme: Leukocytosis Normocytic anemia Monitor CBC daily. Follow trends. No indication for transfusion of blood products at this time. Follow-up coags ID: Multidrug-resistant ESBL positive E. coli/multidrug-resistant Pseudomonas and Enterococcus faecalis UTI likely contaminant Currently of piperacillin/tazobactam and metronidazole IV. Blood cultures 2 on admission were no growth tod ate. Urine revealed ESBL positive E. coli. Repeat blood cultures 2, urine and sputum 11/16 with sputum not completed. FEN: Hypernatremia We will place on half normal saline at 50 cc while currently n.p.o. MSK: Well healed Sacral decubitus/heel ulcers Wound care evaluation and treat Access -Utilize peripheral IV. Central line if indicated Prophylaxis -GI -lansoprazole -DVT -SCD/holding pharmacological prophylaxis in light of history of hematuria on TSOAC Level 2 follow-up. Stable from critical care medicine standpoint. Assign care to hospitalist in a.m. 11/21. Carlos Murcia MD November 20, 2017 09:04
[2017-11-20] MEDS ORDERED: ACETAMINOPHEN 650 MG/20.3 ML UDC PO PRN (09:15)
[2017-11-20] MEDS: NITROGLYCERIN 2% OINT 1 GM PACKET TOPICAL PRN (11:15)
[2017-11-20] MEDS: niCARdipine INJ 25 MG in SODIUM CHLOR 0.9% 250 ML INJ 250 ML IV PRN ×2 (11:32→14:21)
[2017-11-20] MEDS: SODIUM CHLOR 0.45% 1000 ML INJ 1,000 ML IV SCH (12:51)
[2017-11-20] MEDS: hydrALAZINE HCL 50 MG TAB PO SCH ×2 (13:06→22:53)
[2017-11-20] MEDS: ISOSORBIDE DINITRATE 10 MG TAB PO SCH ×2 (13:06→22:53)
--- NOTE | 2017-11-20 15:41 | PD.CONS ---
HPI Service Urology Consult Requested By Dr Murcia Reason for Consult Decrease Rt PCN output Primary Care Physician Nii Stone M.D. Diagnosis: (1) UTI (urinary tract infection) ICD Code: N39.0 - Urinary tract infection, site not specified (2) Encephalopathy acute ICD Code: G93.40 - Encephalopathy, unspecified (3) Leukocytosis ICD Code: D72.829 - Elevated white blood cell count, unspecified (4) Abnormal CT scan ICD Code: R93.8 - Abnormal findings on diagnostic imaging of other specified body structures (5) SIMBA (acute kidney injury) ICD Code: N17.9 - Acute kidney failure, unspecified (6) Diabetes ICD Code: E11.9 - Type 2 diabetes mellitus without complications (7) Severe sepsis ICD Code: A41.9 - Sepsis, unspecified organism; R65.20 - Severe sepsis without septic shock History of Present Illness 62y.o F known to Urology service for her h/o large right renal stone and recurrent UTI. She has also multiple other medical issues. Currently admitted for multi bacterial and multi resistant Urosepsis and respiratory failure, was intubated. She is currently extubated since yeterday. Urology attempted to do Right PCNL several weeks ago but due to pt's inability to easily move due to contracted arm she could not be positioned into prone position so surgery was canceled. She still has Rt PCN in place as well as right neph-u stent. Stent mainly drains her urine down to her bladder and major part of urine is drained via hernandez. So PCN out put is expected to be low. Review of Systems Except as stated in HPI: all other systems reviewed are Neg Past Family Social History Past Medical History as indicated in primary notes Past Surgical History as before, see primary team notes Allergies: Coded Allergies: *MDRO Multi-Drug Resistant Organism (Verified Adverse Reaction, Unknown, ) 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 ESBL + E. 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 Family History see primary notes Social History see primary notes Physical Exam Vital Signs Date Time Temp Pulse Resp B/P (MAP) Pulse Ox O2 Delivery O2 Flow Rate FiO2 11/20/17 14:21 67 153/68 11/20/17 11:32 58 205/91 11/20/17 10:17 100 Nasal Cannula 2.00 11/20/17 08:21 30 11/20/17 08:21 100 30 11/20/17 08:00 30 11/20/17 08:00 98.8 55 16 181/81 (114) 99 11/20/17 08:00 55 11/20/17 07:15 100 Mechanical Ventilator 30 11/20/17 04:10 98 30 11/20/17 04:00 62 11/20/17 04:00 98.8 62 16 175/81 (112) 100 11/20/17 04:00 30 11/20/17 01:10 100 30 11/20/17 00:00 30 11/20/17 00:00 64 11/20/17 00:00 98.3 64 16 137/65 (89) 100 11/19/17 20:01 100 30 11/19/17 20:00 54 11/19/17 20:00 30 11/19/17 20:00 98.6 54 16 164/74 (104) 99 11/19/17 19:00 100 Mechanical Ventilator 30 11/19/17 16:00 98.3 64 15 177/59 (98) 100 11/19/17 16:00 30 11/19/17 16:00 64 11/19/17 15:45 100 30 Physical Exam GENERAL: This is a well-nourished, well-developed patient, in no apparent distress. CARDIOVASCULAR: Regular rate and rhythm without murmurs RESPIRATORY: Clear to auscultation. Breath sounds equal bilaterally. + mild rhonchi. GASTROINTESTINAL: Abdomen soft, non-tender, nondistended. . GENITOURINARY: Rt PCN and Hernandez are in place NEUROLOGICAL: Awake and alert. Lab results reviewed: Yes Laboratory Tests Test 11/20/17 03:51 White Blood Count 12.9 Red Blood Count 3.55 Hemoglobin 9.1 Hematocrit 29.1 Mean Corpuscular Volume 82.2 Mean Corpuscular Hemoglobin 25.6 Mean Corpuscular Hemoglobin Concent 31.2 Red Cell Distribution Width 18.2 Platelet Count 257 Mean Platelet Volume 9.3 Blood Urea Nitrogen 21 Creatinine 1.60 Random Glucose 144 Calcium Level 8.5 Sodium Level 147 Potassium Level 3.9 Chloride Level 114 Carbon Dioxide Level 20.6 Anion Gap 12 Estimat Glomerular Filtration Rate 33 Date/Time Source Procedure Growth Status 11/16/17 12:30 Blood Peripheral Aerobic Blood Culture - Preliminary NO GROWTH IN 4 DAYS Resulted 11/16/17 12:30 Blood Peripheral Anaerobic Blood Culture - Preliminary NO GROWTH IN 4 DAYS Resulted 11/16/17 08:40 Urine Catheterized Urine Urine Culture - Final Pippa Albicans Pseudomonas Aeruginosa Multi-Drug Resistant Complete Result Diagram: 11/20/17 0351 11/20/17 0351 Personally reviewed images: Yes Imaging Last Impressions Chest X-Ray 11/19/17 0600 Signed Impressions: Service Date/Time: Sunday, November 19, 2017 03:07 - CONCLUSION: 1. Interval removal of nasogastric tube. 2. The lungs remain clear. Rosales Jay MD Lower Extremity Ultrasound 11/16/17 0000 Signed Impressions: Service Date/Time: Thursday, November 16, 2017 08:49 - CONCLUSION: No evidence of deep venous thrombosis in either lower extremity. Chetan Beltre MD Abdomen X-Ray 11/16/17 0000 Signed Impressions: Service Date/Time: Thursday, November 16, 2017 08:03 - CONCLUSION: Gastric tube tip and side-port project within the stomach. Chetan Beltre MD Abdomen Ultrasound 11/14/17 0000 Signed Impressions: Service Date/Time: October 07:56 - CONCLUSION: 1. There is elevated velocity within the proximal SMA which raises the possibility of a focal stenosis. 2. The vessels imaged and appear to be patent. Yo Joiner MD Abdomen/Pelvis CT 11/10/17 0601 Signed Impressions: Service Date/Time: Friday, November 10, 2017 07:44 - CONCLUSION: 1.Focal abnormal circumferential wall thickening involving the descending colon at the level of the hepatic flexure with significant adjacent fluid tracking within the right paracardiac color. Given the extensive atherosclerosis and focal finding concern is for possible infarct. Infection is also within the differential diagnosis. 2. Interval placement of a right-sided percutaneous nephrostomy tube. Stable appearance of the right kidney with multiple renal stones. Josefa Hair MD Head CT 11/10/17 0000 Signed Impressions: Service Date/Time: Friday, November 10, 2017 11:22 - CONCLUSION: Stable exam. No acute abnormality.. Josefa Hair MD Assessment and Plan Assessment and Plan 62y.o F with urosepsis. Has large right renal stone. PCN is in place. Urology consulted for decrease PCN output VS stable. pt is afebrile. Labs are improving as well. - No acute intervention needed - Continue management as per primary team - Since she had 130cc output before and it dropped to 0cc consult IR to evaluate for possible clogging - She failed Rt PCNL due to mobility issues. Pt will need to be seen as outpt by Dr Stevenson once infection is cleared and right ureteroscopy stone extraction will be scheduled Discussed Condition With Dr Stevenosn attending who agrees with this plan Problem Qualifiers (1) Diabetes: Qualified Codes: E11.65 - Type 2 diabetes mellitus with hyperglycemia; Z79.4 - FDC (current) use of insulin Dave Crandall November 20, 2017 15:41
--- NOTE | 2017-11-20 16:06 | HHI.HCPN ---
Reason for visit a. To assist with evaluation and management of symptoms including: dysphagia ,dyspnea, pain, encephalopathy, agitation b. To assist medical decision maker(s) with: better understanding of current medical conditions; weighing benefits/burdens of medical treatment options; making medical treatment decisions. Subjective/Interval History Patient was transferred back to [facility]2017 secondary to acute hypoxemic/ hypercapnic respiratory failure requiring intubation. Patient was successfully extubated earlier today.Respirations are unlabored; oxygen saturation stable at 99% on 2L via nasal cannula. Follow-up chest x-ray yesterday 11/19/2017 demonstrated the lungs to be symmetrically aerated without evidence of mass, infiltrate or effusion. The cardiomediastinal contours were unremarkable. Patient unable to tolerate attempts at modified oral diet per ST. Patient remains NPO after suspected aspiration event for with need for short-term intubation status post PEG tube placement on 11/18/2017. Dietary recommending Glucerna 1.5 at 30 mL's per hour increase 10 mL's per hour as tolerated to goal rate of 50 mL's per hour. Recent lab work from 11/20/2017 reviewed: = WBC: 12.9, hemoglobin 9.1, hematocrit 29.1, platelets 257 = Sodium 147, potassium 3.9, chloride 114, carbon dioxide 20.6, glucose 144, calcium 8.5 = BUN: 21, creatinine 1.60, GFR 33 Patient is awake, staring at this examiner. Does not respond to questions but responds to simple 1 step commands intermittently i.e opens mouth and squeezes with her right hand. Left side paresis is noticed status post previous CVA. Patient begins to yell/moan and attempts to "swing" her right arm at this examiner during assessment. Discussed with RN (Oriana) who stated she had not seen this behavior previously. Attempted to call to cong Cadena after examination; message left on his vm with palliative care contact information. Medical treatment goals have been aggressive, [facility] to [facility]. . Family/friend interactions See interval history Advance Directives Health Care Surrogate: Copy in medical record Advance Directive Specifics Date completed: 03/2013 Health Care Surrogate(s): Cong Wilson--this was misspelled by person completing form son's name is Daniela Objective Vital Signs Date Time Temp Pulse Resp B/P (MAP) Pulse Ox O2 Delivery O2 Flow Rate FiO2 11/20/17 14:21 67 153/68 11/20/17 11:32 58 205/91 11/20/17 10:17 100 Nasal Cannula 2.00 11/20/17 08:21 30 11/20/17 08:21 100 30 11/20/17 08:00 30 11/20/17 08:00 98.8 55 16 181/81 (114) 99 11/20/17 08:00 55 11/20/17 07:15 100 Mechanical Ventilator 30 11/20/17 04:10 98 30 11/20/17 04:00 62 11/20/17 04:00 98.8 62 16 175/81 (112) 100 11/20/17 04:00 30 11/20/17 01:10 100 30 11/20/17 00:00 30 11/20/17 00:00 64 11/20/17 00:00 98.3 64 16 137/65 (89) 100 11/19/17 20:01 100 30 11/19/17 20:00 54 11/19/17 20:00 30 11/19/17 20:00 98.6 54 16 164/74 (104) 99 11/19/17 19:00 100 Mechanical Ventilator 30 11/19/17 16:00 98.3 64 15 177/59 (98) 100 11/19/17 16:00 30 11/19/17 16:00 64 11/19/17 15:45 100 30 Intake & Output 11/20/17 11/20/17 07:00 19:00 Intake Total 535 ml Output Total 900 ml Balance -365 ml IV Total 200 ml Tube Feeding 135 ml Other 200 ml Output Urine Total 900 ml Drainage Total 0 ml # Bowel Movements 1 . Physical Exam CONSTITUTIONAL/GENERAL: Well-nourished female status post extubation tolerating 2 L O2 via nasal cannula TUBES/LINES/DRAINS: Peripheral IV upper extremity, nasal cannula, PEG, Podus boots, Rebolledo catheter, nephrostomy tube SKIN: No jaundice, rashes, or lesions. No wounds seen anteriorly. Skin warm/dry CARDIOVASCULAR: Regular rate and rhythm without murmur. No JVD. Peripheral pulses symmetric. RESPIRATORY/CHEST: Symmetric, unlabored respirations. Breath sounds diminished bilaterally. GASTROINTESTINAL: Abdomen soft, nontender, nondistended. Status post PEG. Normoactive bowel sounds 4 quadrants GENITOURINARY: Without palpable bladder distension. Rebolledo catheter in place. MUSCULOSKELETAL: Extremities without clubbing, cyanosis. Edema in bilateral lower extremities; left >right. + Edema right upper extremity. Left foot drop? NEUROLOGICAL: Awake and alert. Stares vacantly. Does not respond to questions. Follows some simple commands intermittently such as opening mouth and squeezing with her right hand. Residual left-sided hemiparesis status post previous CVA. PSYCHIATRIC: Patient attempted to "swing" at this examiner during assessment . Diagnostic Tests Laboratory Laboratory Tests Test 11/17/17 17:55 11/18/17 04:05 11/18/17 12:00 11/18/17 20:28 Potassium Level 3.9 MEQ/L (3.5-5.1) 3.5 MEQ/L (3.5-5.1) 3.6 MEQ/L (3.5-5.1) Phosphorus Level 3.1 MG/DL (2.5-4.9) 2.4 MG/DL (2.5-4.9) 3.7 MG/DL (2.5-4.9) White Blood Count 12.4 TH/MM3 (4.0-11.0) Red Blood Count 3.46 MIL/MM3 (4.00-5.30) Hemoglobin 9.0 GM/DL (11.6-15.3) Hematocrit 28.4 % (35.0-46.0) Mean Corpuscular Volume 82.0 FL (80.0-100.0) Mean Corpuscular Hemoglobin 25.9 PG (27.0-34.0) Mean Corpuscular Hemoglobin Concent 31.6 % (32.0-36.0) Red Cell Distribution Width 18.2 % (11.6-17.2) Platelet Count 265 TH/MM3 (150-450) Mean Platelet Volume 8.6 FL (7.0-11.0) Neutrophils (%) (Auto) 81.2 % (16.0-70.0) Lymphocytes (%) (Auto) 12.9 % (9.0-44.0) Monocytes (%) (Auto) 3.9 % (0.0-8.0) Eosinophils (%) (Auto) 1.6 % (0.0-4.0) Basophils (%) (Auto) 0.4 % (0.0-2.0) Neutrophils # (Auto) 10.1 TH/MM3 (1.8-7.7) Lymphocytes # (Auto) 1.6 TH/MM3 (1.0-4.8) Monocytes # (Auto) 0.5 TH/MM3 (0-0.9) Eosinophils # (Auto) 0.2 TH/MM3 (0-0.4) Basophils # (Auto) 0.1 TH/MM3 (0-0.2) CBC Comment DIFF FINAL Differential Comment Blood Urea Nitrogen 29 MG/DL (7-18) Creatinine 1.80 MG/DL (0.50-1.00) Random Glucose 124 MG/DL (74-106) Total Protein 6.6 GM/DL (6.4-8.2) Albumin 2.3 GM/DL (3.4-5.0) Calcium Level 8.2 MG/DL (8.5-10.1) Magnesium Level 2.0 MG/DL (1.5-2.5) Alkaline Phosphatase 64 U/L (45-117) Aspartate Amino Transf (AST/SGOT) 18 U/L (15-37) Alanine Aminotransferase (ALT/SGPT) 10 U/L (10-53) Total Bilirubin 0.4 MG/DL (0.2-1.0) Sodium Level 151 MEQ/L (136-145) Chloride Level 115 MEQ/L (98-107) Carbon Dioxide Level 26.4 MEQ/L (21.0-32.0) Anion Gap 10 MEQ/L (5-15) Estimat Glomerular Filtration Rate 28 ML/MIN (>89) Lipase 427 U/L (73-393) Urine Eosinophils RARE /HPF (NONE SEEN) Test 11/19/17 04:07 11/20/17 03:51 White Blood Count 13.6 TH/MM3 (4.0-11.0) 12.9 TH/MM3 (4.0-11.0) Red Blood Count 3.69 MIL/MM3 (4.00-5.30) 3.55 MIL/MM3 (4.00-5.30) Hemoglobin 9.4 GM/DL (11.6-15.3) 9.1 GM/DL (11.6-15.3) Hematocrit 30.0 % (35.0-46.0) 29.1 % (35.0-46.0) Mean Corpuscular Volume 81.4 FL (80.0-100.0) 82.2 FL (80.0-100.0) Mean Corpuscular Hemoglobin 25.6 PG (27.0-34.0) 25.6 PG (27.0-34.0) Mean Corpuscular Hemoglobin Concent 31.4 % (32.0-36.0) 31.2 % (32.0-36.0) Red Cell Distribution Width 18.1 % (11.6-17.2) 18.2 % (11.6-17.2) Platelet Count 245 TH/MM3 (150-450) 257 TH/MM3 (150-450) Mean Platelet Volume 9.0 FL (7.0-11.0) 9.3 FL (7.0-11.0) Neutrophils (%) (Auto) 82.1 % (16.0-70.0) Lymphocytes (%) (Auto) 11.7 % (9.0-44.0) Monocytes (%) (Auto) 4.0 % (0.0-8.0) Eosinophils (%) (Auto) 1.7 % (0.0-4.0) Basophils (%) (Auto) 0.5 % (0.0-2.0) Neutrophils # (Auto) 11.1 TH/MM3 (1.8-7.7) Lymphocytes # (Auto) 1.6 TH/MM3 (1.0-4.8) Monocytes # (Auto) 0.5 TH/MM3 (0-0.9) Eosinophils # (Auto) 0.2 TH/MM3 (0-0.4) Basophils # (Auto) 0.1 TH/MM3 (0-0.2) CBC Comment DIFF FINAL Differential Comment Blood Urea Nitrogen 23 MG/DL (7-18) 21 MG/DL (7-18) Creatinine 1.76 MG/DL (0.50-1.00) 1.60 MG/DL (0.50-1.00) Random Glucose 118 MG/DL (74-106) 144 MG/DL (74-106) Total Protein 6.8 GM/DL (6.4-8.2) Albumin 2.5 GM/DL (3.4-5.0) Calcium Level 8.4 MG/DL (8.5-10.1) 8.5 MG/DL (8.5-10.1) Phosphorus Level 3.2 MG/DL (2.5-4.9) Magnesium Level 1.8 MG/DL (1.5-2.5) Alkaline Phosphatase 70 U/L (45-117) Aspartate Amino Transf (AST/SGOT) 13 U/L (15-37) Alanine Aminotransferase (ALT/SGPT) 10 U/L (10-53) Total Bilirubin 0.5 MG/DL (0.2-1.0) Sodium Level 150 MEQ/L (136-145) 147 MEQ/L (136-145) Potassium Level 3.4 MEQ/L (3.5-5.1) 3.9 MEQ/L (3.5-5.1) Chloride Level 114 MEQ/L (98-107) 114 MEQ/L (98-107) Carbon Dioxide Level 24.7 MEQ/L (21.0-32.0) 20.6 MEQ/L (21.0-32.0) Anion Gap 11 MEQ/L (5-15) 12 MEQ/L (5-15) Estimat Glomerular Filtration Rate 29 ML/MIN (>89) 33 ML/MIN (>89) . Result Diagram: 11/20/1735011/20/17350 Imaging Last 72 hours Impressions Chest X-Ray 11/19/17599 Signed Impressions: Service Date/Time: Sunday, November 19, 2017 03:07 - CONCLUSION: 1. Interval removal of nasogastric tube. 2. The lungs remain clear. Rosales Jay MD Chest X-Ray 11/18/17599 Signed Impressions: Service Date/Time: Saturday, November 18, 2017 03:31 - CONCLUSION: No significant change. The lungs are clear. Rosales Jay MD . Procedures 11/16/2017: Intubation 11/18/2017: PEG tube placement . Assessment and Plan Disease Oriented Problem List: (1) Anemia (2) Hematuria (3) Acute kidney injury (4) ESBL (extended spectrum beta-lactamase) producing bacteria infection (5) Atrial fibrillation (6) CAD (coronary artery disease) (7) Schizophrenia (8) Dyslipidemia (9) UTI (urinary tract infection) (10) Hydronephrosis (11) Severe sepsis with acute organ dysfunction (12) right MCA stroke 2013, with left hemiparesis (13) hypertension (14) history of decubiti (15) chronic kidney disease (16) coronary artery disease, history of stents (17) dislodging of nephrostomy tube, replaced 07/17/17 Symptom Scale: (1) Dyspnea 0-10 Scale: Unable to quantify (2) Dysphagia 0-10 Scale: Unable to quantify (3) Pain 0-10 Scale: Unable to quantify (4) Agitation 0-10 Scale: Unable to quantify (5) Encephalopathy Pertinent Non-Medical Issues Psychosocial: Spiritual: Legal:Patient confused baseline, does not appear to have capacity to make medical decisions does not appear she will regain capacity. Her son is designated as healthcare surrogate on document dated 2012. They have not been able to reach him this admission for consent, of note palliative care was consulted on this patient in July 2017 and at that time there was no answer or voicemail on my multiple attempts. Her review further of old records in May 2017 case management requested wellness checks at patient's son possible address, this person did not live there. Apparently at some point in 2014 the son was incarcerated per CM notes. Not clear his location at this time , per palliative director of social services review of [employer] record search 10/16/17 appears a Dev Wilson was arrested through [employer] however he was not incarcerated was released-- not clear if this person is related to pt. Will request [employer] search to identify possible decision makers. 11/11/17 palliative director of social services reviewed findings of accur[employer] report and social network search--able to locate and initiate contact through Son's girlfriend number, son is actually DANIELA Wilson [phone] Ethical issues impacting care: none identified Important Contacts SON/HCS Daniela Wilson [phone] NOT Dev Wilson [phone], [phone]-->this # is NOT anyone related to pt . Prognosis This patient has multiple chronic medical conditions. She has been debilitated and [facility] in a [facility]. Due to these multiple conditions, she will likely continue to have ongoing complications, setbacks and recurrent hospitalizations. . Code Status: Full Code Plan * FULL CODE * Legal decision maker: Patient confused baseline, does not appear to have capacity to make medical decisions nor does it appear she will regain capacity. Son, Daniela Wilson, is the designated HCS; designation forms completed in 2012. * Goals aggressive for now; continue all available treatments, including full code. * Discussed current medical treatment goals with RN (Oriana). Attempted to call patient's son (Daniela) after examining patient. Message left on Daniela' s voicemail with palliative care contact information. * SYMPTOMS: --Encephalopathy- Patient status post CVA likely with some residual cognitive deficits. Also with long psychiatric history per records. --Dyspnea- EMS activated for respiratory distress, low O2 sats. CXR no acute process. Rapid response called 11/13/17 and again on 11/16/17 for respiratory distress. Status post extubation today 11/20/16-currently tolerating 2L via nasal cannula. --Pain: Patient begins moaning/yelling with any type of exam to lower extremities. BLE are edematous; left > right. Bilateral foot drop. ? Etiology chronic immobility/bedbound status. It is noted she is on Gabapentin 100 mg twice daily, may have some neuropathic pain. Consider uptitration. May require additional analgesics if pain persists/worsens , though difficult to further assess/quantify, will continue to evaluate. Appears comfortable when at rest and lower extremities are not disturbed. Current orders for IV morphine PRN- none administered in the past 24 hours. --Dysphagia- s/p multiple CVAs. Appears has had some degree of ongoing chronic dysphagia 2/2 to, with diet modifications in place. Patient unable to tolerate attempts at modified oral diet per ST. Patient remains NPO after suspected aspiration event for with need for short-term intubation status post PEG tube placement on 11/18/2017. Dietary recommending Glucerna 1.5 at 30 mL's per hour increase 10 mL's per hour as tolerated to goal rate of 50 mL's per hour. --Agitation: Patient with long psychiatric history per records. On risperidone 0.5 mg TID. Patient attempting to "swing" at provider today. If agitation persists or worsens- may consider increasing risperidone dosage or adding PRN Haldol. * Palliative care will continue to follow during hospital course as condition evolves, to assist patient/decision-maker with understanding of medical conditions, weighing benefits/burdens of treatment options, for clarification of goals of treatment. Additionally will assist with any symptoms of palliative concern . Amy Sommers November 20, 2017 16:06
[2017-11-20] MEDS: ATORVASTATIN 40 MG TAB PO SCH (21:48)
[2017-11-21] VITALS (9 sets, daily range): BP systolic 167–181; BP diastolic 74–84; PULSE 60–70; RESP 15–22; TEMP 98.3–98.6; O2SAT 97–100
[2017-11-21] MEDS: FREE WATER G-TUBE SCH ×4 (00:21→17:52)
[2017-11-21] MEDS: INSULIN NovoLIN REGULAR SUPPLEMENTAL SCALE SQ SCH ×4 (00:21→18:17)
[2017-11-21] MEDS: PIPERACIL-TAZO 2.25 GM PREMIX 50 ML IV SCH ×4 (00:21→17:52)
[2017-11-21] MEDS: metroNIDAZOLE 500 MG INJ 100 ML IV SCH ×4 (01:31→18:18)
[2017-11-21] MEDS: RESP: ALBUTEROL 2.5 MG/IPRATROPIUM 0.5 MG NEB (SCH) NEB ×4 (04:10→22:05)
[2017-11-21] MEDS: hydrALAZINE HCL 50 MG TAB PO SCH (05:33)
[2017-11-21] MEDS: ISOSORBIDE DINITRATE 10 MG TAB PO SCH ×3 (05:33→21:39)
[2017-11-21 06:19] LABS: HEMATOCRIT 29.1 % (35.0-46.0); MEAN CELL VOLUME 81.8 FL (80.0-100.0); MEAN CORPUSCULAR HEMOGLOBIN 25.4 PG (27.0-34.0); MEAN PLATELET VOLUME 9.6 FL (7.0-11.0); PLATELET COUNT 289 TH/MM3 (150-450); RED BLOOD COUNT 3.56 MIL/MM3 (4.00-5.30); RED CELL DISTRIBUTION WIDTH 18.1 % (11.6-17.2); WHITE BLOOD COUNT 14.2 TH/MM3 (4.0-11.0)
[2017-11-21 06:47] LABS: BICARBONATE 23.7 MEQ/L (21.0-32.0); CALCIUM 8.4 MG/DL (8.5-10.1); CREATININE 1.76 MG/DL (0.50-1.00); MAGNESIUM 1.9 MG/DL (1.5-2.5); PHOSPHORUS 2.6 MG/DL (2.5-4.9)
[2017-11-21] MEDS: CHLORHEXIDINE 0.12% (ORAL KIT) 15 ML CUP MT SCH ×2 (08:00→19:13)
[2017-11-21] MEDS: MUPIROCIN 2% OINT 1 APPLIC/GM SYR EACH NARE SCH ×2 (08:21→21:38)
[2017-11-21] MEDS: SODIUM CHLOR 0.45% 1000 ML INJ 1,000 ML IV SCH (08:21)
[2017-11-21] MEDS: ASPIRIN 81 MG CHEW TAB CHEW SCH (08:22)
[2017-11-21] MEDS: POLYETHYLENE GLYCOL 17 GM PKG PO SCH (08:22)
[2017-11-21] MEDS: SODIUM CHLORIDE 0.9% FLUSH 10 ML FLUSH IV FLUSH SCH ×2 (08:22→21:38)
[2017-11-21] MEDS: LACTULOSE SYRUP 20 GM/30 ML CUP PO SCH (08:22)
[2017-11-21] MEDS: SERTRALINE HCL 50 MG TAB PO SCH (08:22)
[2017-11-21] MEDS: GABAPENTIN 100 MG CAP PO SCH ×2 (08:22→21:38)
[2017-11-21] MEDS: risperiDONE 0.5 MG TAB PO SCH ×3 (08:22→17:52)
[2017-11-21] MEDS: DOCUSATE SODIUM 100 MG/10 ML UDC PO SCH ×2 (08:22→21:28)
[2017-11-21] MEDS: SENNOSIDES SYRUP 8.8 MG/5 ML CUP PO SCH ×2 (08:22→21:28)
[2017-11-21] MEDS: LANSOPRAZOLE SOLUTAB 30 MG TAB NG SCH (08:22)
[2017-11-21] MEDS: METOPROLOL TARTRATE 25 MG TAB PO SCH ×2 (08:22→21:38)
[2017-11-21] MEDS: POTASSIUM CHLOR 20 MEQ PREMIX 100 ML IV PRN ×2 (08:23→10:43)
[2017-11-21] MEDS: ARTIFICIAL TEARS OPTH SOLN 15 ML BTL EACH EYE SCH ×2 (08:23→21:38)
[2017-11-21] MEDS ORDERED: hydrALAZINE HCL 50 MG TAB PO ONE (09:15)
[2017-11-21] MEDS ORDERED: hydrALAZINE HCL 20 MG/ML VIAL IV PUSH PRN (12:00)
--- NOTE | 2017-11-21 12:08 | RADRPT ---
EXAM DATE: 11/21/2017 11:52 AM EDT AGE/SEX: 62 years / Female INDICATIONS: Distended abdomen CLINICAL DATA: This is the patient's subsequent encounter. Patient reports that signs and symptoms h ave been present for 4 - 6 days and indicates a pain score of Nonresponsive. MEDICAL/SURGICAL HISTORY: Hypertension. cerebrovascular accident, a-fib Coronary artery stent. Hysterectomy. section. COMPARISON: [facility] [place], ABDOMEN KUB ONLY, 11/16/2017. . FINDINGS: The abdominal bowel gas pattern is nonspecific. The previously noted NG tube has been removed. There is a right-sided double-J stent in place. There appears to be a right-sided nephrostomy catheter in place. No significant dilatation of the small or large bowel seen. The bony structures are stable. CONCLUSION: Benign-appearing abdomen. Electronically signed by: Yo Joiner MD 11/21/2017 12:07 PM EDT
[2017-11-21] MEDS: hydrALAZINE HCL 25 MG TAB PO SCH ×2 (13:36→21:39)
--- NOTE | 2017-11-21 14:11 | HHI.PR ---
Subjective Remarks Seen earlier today , discussed with the patient, nurse and Dr Mobley sde Patient has a PEG tube and is strict NPO at this time. Complaints of some abdominal distention, KUB is pending. No n/v/d/c. pain at the PEG site No fever or chills. No diarrhea or constipation. Has decreased [facility] urology consulted recommends IR for eval Objective Vitals Vital Signs Date Time Temp Pulse Resp B/P (MAP) Pulse Ox O2 Delivery O2 Flow Rate FiO2 11/21/17 12:00 98.5 68 22 178/74 (108) 99 11/21/17 12:00 68 11/21/17 08:19 99 11/21/17 08:00 63 11/21/17 08:00 98.6 66 16 181/84 (116) 99 11/21/17 07:00 99 Nasal Cannula 11/21/17 04:13 100 Nasal Cannula 2.00 11/21/17 04:00 66 11/21/17 04:00 98.3 66 15 167/77 (107) 100 11/21/17 00:00 98.3 68 17 173/81 (111) 100 11/21/17 00:00 68 11/20/17 20:58 100 Nasal Cannula 2.00 11/20/17 20:00 78 11/20/17 20:00 98.7 78 27 168/72 (104) 99 11/20/17 19:00 100 Nasal Cannula 2.00 11/20/17 16:00 70 11/20/17 16:00 98.5 70 17 154/72 (99) 100 11/20/17 14:21 67 153/68 I/O 11/20/17 11/20/17 11/20/17 11/21/17 11/21/17 11/21/17 07:00 15:00 23:00 07:00 15:00 23:00 Intake Total 535 ml 1300 ml 755 ml 1011 ml 350 ml Output Total 900 ml 800 ml 500 ml Balance -365 ml 1300 ml -45 ml 511 ml 350 ml IV Total 200 ml 1300 ml 410 ml 200 ml 350 ml Tube Feeding 135 ml 145 ml 611 ml Other 200 ml 200 ml 200 ml Output Urine Total 900 ml 800 ml 500 ml Drainage Total 0 ml 0 ml 0 ml # Bowel Movements 1 1 2 Result Diagram: 11/21/17 0458 11/21/17 0458 Imaging Last Impressions Abdomen X-Ray 11/21/17 0000 Signed Impressions: CONCLUSION: Benign-appearing abdomen. Chest X-Ray 11/19/17 0600 Signed Impressions: Service Date/Time: Sunday, November 19, 2017 03:07 - CONCLUSION: 1. Interval removal of nasogastric tube. 2. The lungs remain clear. Rosales Jay MD Lower Extremity Ultrasound 11/16/17 0000 Signed Impressions: Service Date/Time: Thursday, November 16, 2017 08:49 - CONCLUSION: No evidence of deep venous thrombosis in either lower extremity. Chetan Beltre MD Abdomen Ultrasound 11/14/17 0000 Signed Impressions: Service Date/Time: October 07:56 - CONCLUSION: 1. There is elevated velocity within the proximal SMA which raises the possibility of a focal stenosis. 2. The vessels imaged and appear to be patent. Yo Joiner MD Abdomen/Pelvis CT 11/10/17 0601 Signed Impressions: Service Date/Time: Friday, November 10, 2017 07:44 - CONCLUSION: 1.Focal abnormal circumferential wall thickening involving the descending colon at the level of the hepatic flexure with significant adjacent fluid tracking within the right paracardiac color. Given the extensive atherosclerosis and focal finding concern is for possible infarct. Infection is also within the differential diagnosis. 2. Interval placement of a right-sided percutaneous nephrostomy tube. Stable appearance of the right kidney with multiple renal stones. Josefa Hair MD Head CT 11/10/17 0000 Signed Impressions: Service Date/Time: Friday, November 10, 2017 11:22 - CONCLUSION: Stable exam. No acute abnormality.. Josefa Hair MD Objective Remarks GENERAL: The patient is bedridden, chronically ill. CARDIOVASCULAR: Regular rate and rhythm without murmurs, gallops, or rubs. RESPIRATORY: Shortness of breath, in acute distress, labored breathing, positive rhonchi, some accessory muscle use. GASTROINTESTINAL: Abdomen soft, non-tender, distended. Some pain on palpation at the PEG tube site, PEG tube in place. MUSCULOSKELETAL: No cyanosis, or edema. NEURO: Slurred speech, very limited conversive vocabulary, left wrist is chronically clenched. A/P Problem List: (1) UTI (urinary tract infection) ICD Code: N39.0 - Urinary tract infection, site not specified (2) Encephalopathy acute ICD Code: G93.40 - Encephalopathy, unspecified (3) Leukocytosis ICD Code: D72.829 - Elevated white blood cell count, unspecified (4) Abnormal CT scan ICD Code: R93.8 - Abnormal findings on diagnostic imaging of other specified body structures (5) SIMBA (acute kidney injury) ICD Code: N17.9 - Acute kidney failure, unspecified (6) Diabetes ICD Code: E11.9 - Type 2 diabetes mellitus without complications (7) Severe sepsis ICD Code: A41.9 - Sepsis, unspecified organism; R65.20 - Severe sepsis without septic shock Assessment and Plan 62-year-old white female admitted from a long-term facility for sepsis and acute hypoxic respiratory failure Acute hypoxic hypercapnic respiratory failure secondary to aspiration Was intubated, currently satting well on 3L by NC Chest x-ray revealed bilateral lower lobe atelectasis. No focal infiltrates and /or effusions. However imaging might lag Duonebs every 6 hours with albuterol aerosols 2 hours as needed dyspnea GI: Aspiration Gastroesophageal reflux disease Sigmoid diverticulosis Pancolitis Internal and external hemorrhoids Status post percutaneous and endoscopic gastrostomy tube placed 11/18 Currently on lansoprazole 30 mg by tube daily. On omeprazole 20 mg daily at home Docusate sodium 100 mg twice daily, senna 8.8 mg twice daily Initiate tube feeding daily via PEG tube with Glucerna 1.5 goal 50 cc an hour per nutrition recommendations Patient had sigmoidoscopy endoscopy 11/15 revealed sigmoid diverticulosis, pancolitis with internal and external hemorrhoids. CT abdomen/pelvis revealed descending colon wall thickening. Atherosclerotic vascular disease. Right hydronephrosis. Atrophic left kidney. Evaluated by general surgery/Dr. Guerrero that he is to be a surgical abdomen. Noted high velocities in SMA. Cannot anticoagulate due to history of bleeding Will do KUB 11/21 as noted with abdominal distention : Status post right nephrostomy tube Nephrolithiasis with right hydronephrosis Renal ultrasound revealed atrophic left kidney with right hydronephrosis with pigtail in place/nephrostomy tube Has decreased [facility] urology consulted recommends IR for eval Endo: Bipolar/schizophrenia History of right MCA CVA with left-sided weakness Chronic narcotic/opioid use with oxycodone/acetaminophen Continue Risperdal 0.5 mg by tube 3 times daily. Continue along with sertraline 50 mg p.o. daily Continue gabapentin 100 mg twice daily Avoid narcotics/sedating agents if possible Essential hypertension Hyperlipidemia Coronary artery disease with stents to the RCA and LAD Continue aspirin 81 mg p.o. daily 2D echocardiogram 08/15 revealed EF 60-65%. No regional wall motion abnormality. Mild TR. Pulmonary arterial pressure 37 mmHg Continue metoprolol tartrate 25 mg p.o. twice daily. Hydralazine 50 3 times daily. As needed Nitropaste and nicardipine drip Diabetes mellitus type 2 Holding insulin detemir 7 units at night. Sliding-scale insulin with Novolin R with Accu-Cheks every 6 hours to maintain euglycemia/low regimen Renal: Acute kidney injury in the setting of chronic kidney disease stage III a Right hydronephrosis status post right nephrostomy tube Right nephrolithiasis Maintain nephrostomy tube Monitor urine output Accurate I's and O's A.m. BMP pending Heme: Leukocytosis Normocytic anemia Monitor CBC daily. Follow trends. No indication for transfusion of blood products at this time. Follow-up coags ID: Multidrug-resistant ESBL positive E. coli/multidrug-resistant Pseudomonas and Enterococcus faecalis UTI likely contaminant Currently of piperacillin/tazobactam and metronidazole IV. Blood cultures 2 on admission were no growth tod ate. Urine revealed ESBL positive E. coli. Repeat blood cultures 2, urine and sputum 11/16 with sputum not completed. FEN: Hypernatremia We will place on half normal saline at 50 cc while currently n.p.o. MSK: Well healed Sacral decubitus/heel ulcers Wound care evaluation and treat Prophylaxis -GI -lansoprazole -DVT -SCD/holding pharmacological prophylaxis in light of history of hematuria on TSOAC Discharge Planning Candidate for hospice at long-term living facility. Palliative care is ff Patient is full code however Problem Qualifiers (1) Diabetes: Qualified Codes: E11.65 - Type 2 diabetes mellitus with hyperglycemia; Z79.4 - custodial (current) use of insulin Dafne Louis MD November 21, 2017 14:11
--- NOTE | 2017-11-21 16:59 | ECHRPT ---
Indication: HEART FAILURE CONCLUSIONS Normal left ventricular size. Wall thickness is normal. The left ventricular systolic function is hyperdynamic with an estimated ejection fraction in the ra nge of 65- 70%. There is trace tricuspid valve regurgitation. The estimated pulmonary arterial pressure is 31 mmHg. A prominent epicardial fat pad is present. BP: 163 / 75 HR: 58 Rhythm: Sinus MEASUREMENTS (Male / Female) Normal Values Technical Quality:Fair 2D ECHO LV Diastolic Diameter PLAX 4.5 cm 4.2 - 5.9 / 3.9 - 5.3 cm LV Systolic Diameter PLAX 3.0 cm IVS Diastolic Thickness 1.0 cm 0.6 - 1.0 / 0.6 - 0.9 cm LVPW Diastolic Thickness 1.0 cm 0.6 - 1.0 / 0.6 - 0.9 cm LV Relative Wall Thickness 0.4 RV Internal Dim ED PLAX 2.7 cm LVOT Diameter 1.9 cm Aortic Root Diameter 3.0 cm LA Systolic Diameter LX 3.2 cm 3.0 - 4.0 / 2.7 - 3.8 cm M-MODE AV Cusp Separation MM 2.2 cm DOPPLER AV Peak Velocity 146.0 cm/s AV Peak Gradient 8.5 mmHg AV Mean Gradient 4.0 mmHg AV Velocity Time Integral 29.4 cm LVOT Peak Velocity 80.5 cm/s LVOT Peak Gradient 2.6 mmHg LVOT Velocity Time Integral 14.7 cm AV Area Cont Eq vti 1.4 cm AV Area Cont Eq pk 1.6 cm Mitral E Point Velocity 71.6 cm/s Mitral A Point Velocity 85.4 cm/s Mitral E to A Ratio 0.8 LV E' Lateral Velocity 10.9 cm/s Mitral E to LV E' Lateral Ratio 6.6 LV E' Septal Velocity 8.2 cm/s Mitral E to LV E' Septal Ratio 8.7 TR Peak Velocity 228.0 cm/s TR Peak Gradient 20.8 mmHg Right Atrial Pressure 10.0 mmHg Pulmonary Artery Systolic Pressu 30.8 mmHg Right Ventricular Systolic Press 30.8 mmHg PV Peak Velocity 83.5 cm/s PV Peak Gradient 2.8 mmHg FINDINGS LEFT VENTRICLE Normal left ventricular size. Wall thickness is normal. The left ventricular systolic function is hyperdynamic with an estimated ejection fraction in the ra nge of 65- 70%. RIGHT VENTRICLE Normal right ventricular size and systolic function. LEFT ATRIUM The left atrial size is normal. RIGHT ATRIUM The right atrial size is normal. ATRIAL SEPTUM The interatrial septum not well visualized. AORTA The aortic root and proximal ascending aorta are normal in size on limited imaging. MITRAL VALVE Structurally normal mitral valve. No mitral valve stenosis or regurgitation. AORTIC VALVE Trileaflet aortic valve. No aortic valve stenosis or regurgitation. TRICUSPID VALVE There is trace tricuspid valve regurgitation. The estimated pulmonary arterial pressure is 31 mmHg. PULMONARY VALVE The pulmonary valve is not well visualized. VESSELS The inferior vena cava was not well visualized. PERICARDIUM A prominent epicardial fat pad is present. Kennedy Sweeney MD, FACC, FSCAI (Electronically Signed) Final Date:21 Nov 2017 16:58
[2017-11-21] MEDS ORDERED: IOHEXOL 350 MG/ML 50 ML BTL (for RAD DIAG) OTHER ONE (17:20)
--- NOTE | 2017-11-21 17:20 | HHI.HCPN ---
Reason for visit a. To assist with evaluation and management of symptoms including: dysphagia ,dyspnea, pain, encephalopathy b. To assist medical decision maker(s) with: better understanding of current medical conditions; weighing benefits/burdens of medical treatment options; making medical treatment decisions. . Subjective/Interval History Patient was transferred back to [facility] on 11/16/2017 secondary to acute hypoxemic/ hypercapnic respiratory failure requiring intubation. Patient was successfully extubated earlier today.Respirations are unlabored; oxygen saturation stable at 97% on 2L via nasal cannula. Follow-up chest x-ray yesterday 11/19/2017 demonstrated the lungs to be symmetrically aerated without evidence of mass, infiltrate or effusion. The cardiomediastinal contours were unremarkable. Patient unable to tolerate attempts at modified oral diet per ST. Patient remains NPO after suspected aspiration event for with need for short-term intubation status post PEG tube placement on 11/18/2017. Dietary recommending Glucerna 1.5 at 30 mL's per hour increase 10 mL's per hour as tolerated to goal rate of 50 mL's per hour. Recent lab work from 11/20/2017 reviewed: = WBC: 12.9, hemoglobin 9.1, hematocrit 29.1, platelets 257 = Sodium 147, potassium 3.9, chloride 114, carbon dioxide 20.6, glucose 144, calcium 8.5 = BUN: 21, creatinine 1.60, GFR 33 Patient is awake, staring at this examiner. Yesterday patient did not respond to questions and was quite agitated. Today 11/21/2017, the patient waves to this examiner when I walked into the room. She is alert to person and place. She states she wants to return to the alf where she lives. She asked me to her son the he is with her always. Able to follow simple one-step commands. Patient complains of ongoing chronic pain in her bilateral lower extremities. Currently receiving gabapentin 100 mg 2 times daily. Discussed current medical treatment goals with RN ([facility]) Medical treatment goals have been aggressive; patient will likely return to alf at discharge. . Advance Directives Health Care Surrogate: Copy in medical record Advance Directive Specifics Date completed: 03/2013 Health Care Surrogate(s): Cong Wilson--this was misspelled by person completing form son's name is Daniela Objective Vital Signs Date Time Temp Pulse Resp B/P (MAP) Pulse Ox O2 Delivery O2 Flow Rate FiO2 11/21/17 16:00 64 11/21/17 12:00 98.5 68 22 178/74 (108) 99 11/21/17 12:00 68 11/21/17 08:19 99 11/21/17 08:00 63 11/21/17 08:00 98.6 66 16 181/84 (116) 99 11/21/17 07:00 99 Nasal Cannula 11/21/17 04:13 100 Nasal Cannula 2.00 11/21/17 04:00 66 11/21/17 04:00 98.3 66 15 167/77 (107) 100 11/21/17 00:00 98.3 68 17 173/81 (111) 100 11/21/17 00:00 68 11/20/17 20:58 100 Nasal Cannula 2.00 11/20/17 20:00 78 11/20/17 20:00 98.7 78 27 168/72 (104) 99 11/20/17 19:00 100 Nasal Cannula 2.00 Intake & Output 11/21/17 11/21/17 07:00 19:00 Intake Total 1371 ml 450 ml Output Total 500 ml Balance 871 ml 450 ml IV Total 560 ml 450 ml Tube Feeding 611 ml Other 200 ml Output Urine Total 500 ml Drainage Total 0 ml # Bowel Movements 2 Physical Exam CONSTITUTIONAL/GENERAL: Well-nourished female status post extubation tolerating 2 L O2 via nasal cannula TUBES/LINES/DRAINS: Peripheral IV upper extremity, nasal cannula, PEG, Podus boots, Rebolledo catheter, nephrostomy tube SKIN: No jaundice, rashes, or lesions. No wounds seen anteriorly. Skin warm/dry CARDIOVASCULAR: Regular rate and rhythm without murmur. No JVD. Peripheral pulses symmetric. RESPIRATORY/CHEST: Symmetric, unlabored respirations. Breath sounds diminished bilaterally. GASTROINTESTINAL: Abdomen soft, nontender, nondistended. Status post PEG. Normoactive bowel sounds 4 quadrants GENITOURINARY: Without palpable bladder distension. Rebolledo catheter in place. MUSCULOSKELETAL: Extremities without clubbing, cyanosis. Edema in bilateral lower extremities; left >right. + Edema right upper extremity. Left foot drop? NEUROLOGICAL: Awake and alert. Stares vacantly. Does not respond to questions. Follows some simple commands intermittently such as opening mouth and squeezing with her right hand. Residual left-sided hemiparesis status post previous CVA. PSYCHIATRIC: Patient attempted to "swing" at this examiner during assessment . Diagnostic Tests Laboratory Laboratory Tests Test 11/18/17 20:28 11/19/17 04:07 11/20/17 03:51 11/21/17 04:58 Potassium Level 3.6 MEQ/L (3.5-5.1) 3.4 MEQ/L (3.5-5.1) 3.9 MEQ/L (3.5-5.1) 3.3 MEQ/L (3.5-5.1) Phosphorus Level 3.7 MG/DL (2.5-4.9) 3.2 MG/DL (2.5-4.9) 2.6 MG/DL (2.5-4.9) White Blood Count 13.6 TH/MM3 (4.0-11.0) 12.9 TH/MM3 (4.0-11.0) 14.2 TH/MM3 (4.0-11.0) Red Blood Count 3.69 MIL/MM3 (4.00-5.30) 3.55 MIL/MM3 (4.00-5.30) 3.56 MIL/MM3 (4.00-5.30) Hemoglobin 9.4 GM/DL (11.6-15.3) 9.1 GM/DL (11.6-15.3) 9.0 GM/DL (11.6-15.3) Hematocrit 30.0 % (35.0-46.0) 29.1 % (35.0-46.0) 29.1 % (35.0-46.0) Mean Corpuscular Volume 81.4 FL (80.0-100.0) 82.2 FL (80.0-100.0) 81.8 FL (80.0-100.0) Mean Corpuscular Hemoglobin 25.6 PG (27.0-34.0) 25.6 PG (27.0-34.0) 25.4 PG (27.0-34.0) Mean Corpuscular Hemoglobin Concent 31.4 % (32.0-36.0) 31.2 % (32.0-36.0) 31.0 % (32.0-36.0) Red Cell Distribution Width 18.1 % (11.6-17.2) 18.2 % (11.6-17.2) 18.1 % (11.6-17.2) Platelet Count 245 TH/MM3 (150-450) 257 TH/MM3 (150-450) 289 TH/MM3 (150-450) Mean Platelet Volume 9.0 FL (7.0-11.0) 9.3 FL (7.0-11.0) 9.6 FL (7.0-11.0) Neutrophils (%) (Auto) 82.1 % (16.0-70.0) Lymphocytes (%) (Auto) 11.7 % (9.0-44.0) Monocytes (%) (Auto) 4.0 % (0.0-8.0) Eosinophils (%) (Auto) 1.7 % (0.0-4.0) Basophils (%) (Auto) 0.5 % (0.0-2.0) Neutrophils # (Auto) 11.1 TH/MM3 (1.8-7.7) Lymphocytes # (Auto) 1.6 TH/MM3 (1.0-4.8) Monocytes # (Auto) 0.5 TH/MM3 (0-0.9) Eosinophils # (Auto) 0.2 TH/MM3 (0-0.4) Basophils # (Auto) 0.1 TH/MM3 (0-0.2) CBC Comment DIFF FINAL Differential Comment Blood Urea Nitrogen 23 MG/DL (7-18) 21 MG/DL (7-18) 28 MG/DL (7-18) Creatinine 1.76 MG/DL (0.50-1.00) 1.60 MG/DL (0.50-1.00) 1.76 MG/DL (0.50-1.00) Random Glucose 118 MG/DL (74-106) 144 MG/DL (74-106) 223 MG/DL (74-106) Total Protein 6.8 GM/DL (6.4-8.2) Albumin 2.5 GM/DL (3.4-5.0) Calcium Level 8.4 MG/DL (8.5-10.1) 8.5 MG/DL (8.5-10.1) 8.4 MG/DL (8.5-10.1) Magnesium Level 1.8 MG/DL (1.5-2.5) 1.9 MG/DL (1.5-2.5) Alkaline Phosphatase 70 U/L (45-117) Aspartate Amino Transf (AST/SGOT) 13 U/L (15-37) Alanine Aminotransferase (ALT/SGPT) 10 U/L (10-53) Total Bilirubin 0.5 MG/DL (0.2-1.0) Sodium Level 150 MEQ/L (136-145) 147 MEQ/L (136-145) 148 MEQ/L (136-145) Chloride Level 114 MEQ/L (98-107) 114 MEQ/L (98-107) 114 MEQ/L (98-107) Carbon Dioxide Level 24.7 MEQ/L (21.0-32.0) 20.6 MEQ/L (21.0-32.0) 23.7 MEQ/L (21.0-32.0) Anion Gap 11 MEQ/L (5-15) 12 MEQ/L (5-15) 10 MEQ/L (5-15) Estimat Glomerular Filtration Rate 29 ML/MIN (>89) 33 ML/MIN (>89) 29 ML/MIN (>89) Result Diagram: 11/21/17 0458 11/21/17 0458 Procedures 11/16/2017: Intubation 11/18/2017: PEG tube placement . Assessment and Plan Disease Oriented Problem List: (1) Anemia (2) Hematuria (3) Acute kidney injury (4) ESBL (extended spectrum beta-lactamase) producing bacteria infection (5) Atrial fibrillation (6) CAD (coronary artery disease) (7) Schizophrenia (8) Dyslipidemia (9) UTI (urinary tract infection) (10) Hydronephrosis (11) Severe sepsis with acute organ dysfunction (12) right MCA stroke 2013, with left hemiparesis (13) hypertension (14) history of decubiti (15) chronic kidney disease (16) coronary artery disease, history of stents (17) dislodging of nephrostomy tube, replaced 07/17/17 Symptom Scale: (1) Dyspnea 0-10 Scale: Unable to quantify (2) Dysphagia 0-10 Scale: Unable to quantify (3) Pain 0-10 Scale: Unable to quantify (4) Encephalopathy Pertinent Non-Medical Issues Psychosocial: Spiritual: Legal:Patient confused baseline, does not appear to have capacity to make medical decisions does not appear she will regain capacity. Her son is designated as healthcare surrogate on document dated 2012. They have not been able to reach him this admission for consent, of note palliative care was consulted on this patient in July 2017 and at that time there was no answer or voicemail on my multiple attempts. Her review further of old records in May 2017 case management requested wellness checks at patient's son possible address, this person did not live there. Apparently at some point in 2014 the son was incarcerated per CM notes. Not clear his location at this time , per palliative social director review of [employer] record search 10/16/17 appears a Dev Wilson was arrested through [employer] however he was not incarcerated was released-- not clear if this person is related to pt. Will request [employer] search to identify possible decision makers. 11/11/17 palliative social director reviewed findings of accurint report and social network search--able to locate and initiate contact through Son's girlfriend number, son is actually DANIELA Wilson [phone] Ethical issues impacting care: none identified Important Contacts SON/HCS Daniela Wilson [phone] NOT Dev Wilson [phone], [phone]-->this # is NOT anyone related to pt . Prognosis This patient has multiple chronic medical conditions. She has been debilitated and lives in a alf long-term. Due to these multiple conditions, she will likely continue to have ongoing complications, setbacks and recurrent hospitalizations. . Code Status: Full Code Plan * FULL CODE * Legal decision maker: Patient confused baseline, does not appear to have capacity to make medical decisions nor does it appear she will regain capacity. Son, Daniela Wilson, is the designated HCS; designation forms completed in 2012. * Goals aggressive for now; continue all available treatments, including full code. * Discussed current medical treatment goals with RN ([facility]). * SYMPTOMS: --Encephalopathy- Patient status post CVA likely with some residual cognitive deficits. Also with long psychiatric history per records. --Dyspnea- EMS activated for respiratory distress, low O2 sats. CXR no acute process. Rapid response called 11/13/17 and again on 11/16/17 for respiratory distress. Status post extubation today 11/20/16-currently tolerating 2L via nasal cannula. --Pain: Patient begins moaning/yelling with any type of exam to lower extremities. BLE are edematous; left > right. Bilateral foot drop. ? Etiology chronic immobility/bedbound status. It is noted she is on Gabapentin 100 mg twice daily, may have some neuropathic pain. Consider uptitration. May require additional analgesics if pain persists/worsens , though difficult to further assess/quantify, will continue to evaluate. Appears comfortable when at rest and lower extremities are not disturbed. Current orders for IV morphine PRN- none administered in the past 24 hours. --Dysphagia- s/p multiple CVAs. Appears has had some degree of ongoing chronic dysphagia 2/2 to, with diet modifications in place. Patient unable to tolerate attempts at modified oral diet per ST. Patient remains NPO after suspected aspiration event for with need for short-term intubation status post PEG tube placement on 11/18/2017. Dietary recommending Glucerna 1.5 at 30 mL's per hour increase 10 mL's per hour as tolerated to goal rate of 50 mL's per hour. * Palliative care will continue to follow during hospital course as condition evolves, to assist patient/decision-maker with understanding of medical conditions, weighing benefits/burdens of treatment options, for clarification of goals of treatment. Additionally will assist with any symptoms of palliative concern . Attestation To help prompt me to consider important information that might be impacting today's encounter and assessment, information from prior notes written by myself or my colleagues may have been "brought forward" into today's note. My signature on this note, however, is an attestation that I personally performed the exam, history, and/or decision-making noted today, and, unless otherwise indicated, the interactions with patient, family, and staff as well as the review of records all occurred today. I also attest that the listed assessment and stated plan reflect my best clinical judgment today based on the combination of historical information, prior notes, and today's exam/ interactions. When time spent is documented, it refers only to time spent today by the signer, or if indicated, combined time spent today by collaborating physician/nurse practitioner. . Amy Sommers November 21, 2017 17:20
[2017-11-21] MEDS: ATORVASTATIN 40 MG TAB PO SCH (21:38)
[2017-11-22] VITALS (8 sets, daily range): BP systolic 149–173; BP diastolic 70–89; PULSE 58–76; RESP 18–24; TEMP 98.1–98.7; O2SAT 97–100
[2017-11-22] MEDS: INSULIN NovoLIN REGULAR SUPPLEMENTAL SCALE SQ SCH ×4 (00:46→18:36)
[2017-11-22] MEDS: PIPERACIL-TAZO 2.25 GM PREMIX 50 ML IV SCH ×4 (00:46→18:36)
[2017-11-22] MEDS: FREE WATER G-TUBE SCH ×4 (00:46→18:00)
[2017-11-22] MEDS: metroNIDAZOLE 500 MG INJ 100 ML IV SCH ×4 (01:57→18:35)
[2017-11-22] MEDS: SODIUM CHLOR 0.45% 1000 ML INJ 1,000 ML IV SCH (04:15)
[2017-11-22] MEDS: RESP: ALBUTEROL 2.5 MG/IPRATROPIUM 0.5 MG NEB (SCH) NEB ×4 (04:39→20:53)
[2017-11-22] MEDS: hydrALAZINE HCL 25 MG TAB PO SCH ×3 (06:00→21:41)
[2017-11-22] MEDS: ISOSORBIDE DINITRATE 10 MG TAB PO SCH ×3 (06:00→21:41)
--- NOTE | 2017-11-22 07:53 | RADRPT ---
EXAM DATE: 11/21/2017 6:36 PM EDT AGE/SEX: 62 years / Female INDICATIONS: 62-year-old female with history of obstructing right renal calculi with presumably occlu ded ureteral stent and recently placed nephroureteral ureteral access catheter for planned nephrolith otomy. Procedure could not be completed secondary to concerns for prolonged prone positioning and pat ient's limited upper extremity mobility. Patient has since developed urosepsis with concern for pyeon ephrosis. Plan is to exchange existing nephroureteral ureteral access for nephroureteral drainage cat heter. CLINICAL DATA: This is the patient's subsequent encounter. Patient reports that signs and symptoms h ave been present for 1 week and indicates a pain score of 0/10. MEDICAL/SURGICAL HISTORY: Hypertension. Diabetes. Anemia. CVAA-FibCADKidney stonesEmphysemaM RSA Hysterectomy. Tonsillectomy. Coronary stentNephrostomy catheterUreteral stent COMPARISON: No prior [facility] exams available for comparison. FLUORO TIME (min): 1.5 IMAGE SERIES: 3 SEDATION TIME (min): 15 CONTRAST (cc): 5cc Omnipaque (iohexol) 350 MEDICATION(S): 50mcg fentanyl (Sublimaze) IV DEVICE(S): 8 Sami nephroureteral stent [id number] . . PROCEDURE : 1. Ultrasound-guided puncture of the kidney. 2. Limited antegrade percutaneous pyelogram. 3. Percutaneous nephroureteral stent placement the existing nephroureteral catheter. 4. Conscious sedation with continuous EKG and oximetry monitoring. The risks, benefits and alternatives to the procedure were explained and verbal and written consent w as obtained. The site was prepped in sterile fashion. Full sterile technique was used, including ca p, mask, sterile gloves and gown and a large sterile sheet. Hand hygiene and 2% chlorhexidine and/or betadine/alcohol prep was utilized per protocol for cutaneous antisepsis. Sterile gel and sterile p robe cover were utilized for ultrasound guidance. The skin and subcutaneous tissues were infiltrated with local anesthetic solution. Guidewire was advanced through the existing sheath terminating in the bladder. Sheath was then slowly retracted and contrast injected demonstrating occlusion of the right ureter with moderate hydronephr osis and central filling defect in the renal pelvis. There was no significant drainage of contrast th rough the existing ureteral stent. Next, Serial dilatation was performed and the prescribed nephroure teral stent was placed with the proximal portion within the renal pelvis and the distal extent in the urinary bladder. Approximately 200 cc of purulent appearing urine was immediately removed from the r enal collecting system. Injection of positive contrast demonstrates good position of the catheter. Conscious sedation was performed with the prescribed dosages and duration as above in the presence of an independent trained radiology nurse to assist in the monitoring of the patient. EKG and oximetry remained stable throughout the procedure. The patient tolerated the procedure well and there were n o complications. The patient was sent to post anesthesia recovery in stable condition. CONCLUSION: 1. Uncomplicated nephroureteral stent placement as above. Approximately 200 cc of purulent appearing urine was immediately removed from the renal collecting system. Sample was collected for Gram stain and CS. Findings were also discussed with Dr. Ascencio. Ideally, would need to remove the existing ureteral stent given concern for colonization. However, there are significant calcifications along the proximal and distal portions of the stent and the stent is likely adhered. This along with inferior pole calyx ac cess will make antegrade retrieval attempt very challenging and likely not possible. Electronically signed by: Jadon Canales MD 11/22/2017 7:51 AM EDT
[2017-11-22] MEDS: CHLORHEXIDINE 0.12% (ORAL KIT) 15 ML CUP MT SCH ×2 (08:00→20:00)
[2017-11-22] MEDS: POLYETHYLENE GLYCOL 17 GM PKG PO SCH (08:31)
[2017-11-22] MEDS: SENNOSIDES SYRUP 8.8 MG/5 ML CUP PO SCH ×2 (08:31→20:14)
[2017-11-22] MEDS: LACTULOSE SYRUP 20 GM/30 ML CUP PO SCH (08:31)
[2017-11-22] MEDS: DOCUSATE SODIUM 100 MG/10 ML UDC PO SCH ×2 (08:31→20:14)
[2017-11-22] MEDS: ARTIFICIAL TEARS OPTH SOLN 15 ML BTL EACH EYE SCH ×2 (09:00→20:13)
[2017-11-22] MEDS: LANSOPRAZOLE SOLUTAB 30 MG TAB NG SCH (09:20)
[2017-11-22] MEDS: GABAPENTIN 100 MG CAP PO SCH ×2 (09:20→19:59)
[2017-11-22] MEDS: SODIUM CHLORIDE 0.9% FLUSH 10 ML FLUSH IV FLUSH SCH ×2 (09:21→20:13)
[2017-11-22] MEDS: MORPHINE SULFATE 4 MG/ML INJ IV PRN ×2 (09:23→20:00)
[2017-11-22] MEDS: LABETALOL HCL 100 MG/20 ML VIAL IV PUSH PRN (09:23)
[2017-11-22] MEDS: ASPIRIN 81 MG CHEW TAB CHEW SCH (09:24)
[2017-11-22] MEDS: METOPROLOL TARTRATE 25 MG TAB PO SCH ×2 (09:24→19:59)
[2017-11-22] MEDS: risperiDONE 0.5 MG TAB PO SCH ×3 (09:24→18:36)
[2017-11-22] MEDS: SERTRALINE HCL 50 MG TAB PO SCH (09:24)
[2017-11-22] MEDS: MUPIROCIN 2% OINT 1 APPLIC/GM SYR EACH NARE SCH ×2 (09:24→19:59)
--- NOTE | 2017-11-22 12:37 | HHI.PR ---
Subjective Remarks No acute changes per nursing. Patient appears to deny pain. Objective Vital Signs Date Time Temp Pulse Resp B/P (MAP) Pulse Ox O2 Delivery O2 Flow Rate FiO2 11/22/17 09:28 18 11/22/17 08:30 100 11/22/17 07:00 97 Room Air 11/22/17 04:00 58 11/22/17 04:00 98.1 58 20 150/70 (96) 97 11/22/17 00:00 98.1 68 18 173/75 (107) 97 11/22/17 00:00 68 11/21/17 22:07 97 21 11/21/17 20:00 98.3 60 18 175/81 (112) 99 11/21/17 20:00 60 11/21/17 19:00 98 Room Air 11/21/17 16:00 98.5 70 19 167/74 (105) 99 11/21/17 16:00 64 I/O 11/21/17 11/21/17 11/21/17 11/22/17 11/22/17 11/22/17 07:00 15:00 23:00 07:00 15:00 23:00 Intake Total 1011 ml 350 ml 881 ml 1925 ml Output Total 500 ml 325 ml 1100 ml Balance 511 ml 350 ml 556 ml 825 ml IV Total 200 ml 350 ml 250 ml 1150 ml Tube Feeding 611 ml 431 ml 575 ml Other 200 ml 200 ml 200 ml Output Urine Total 500 ml 325 ml 300 ml Drainage Total 0 ml 0 ml 800 ml # Bowel Movements 2 3 2 Result Diagram: 11/21/17 0458 11/21/17 0458 Objective Remarks GENERAL: Patient sitting up in bed. Appears comfortable. SKIN: Warm and dry. HEAD: Normocephalic. EYES: No scleral icterus. No injection or drainage. NECK: Supple, trachea midline. No JVD. CARDIOVASCULAR: Regular rate and rhythm without murmurs, gallops, or rubs. RESPIRATORY: Breath sounds equal bilaterally. No accessory muscle use. GASTROINTESTINAL: Abdomen soft, non-tender, nondistended. PEG tube in place without any surrounding erythema. MUSCULOSKELETAL: No cyanosis, or edema. BACK: Nontender without obvious deformity. No CVA tenderness. A/P Assessment and Plan =======11/22/17======== //ESBL E. coli UTI //Status post ureteral stent placement 11/21 //Acute kidney injury. -Creatinine 1.7. Worsening. = Nephrology, urology following. =cont abx. Retained stent which cannot be removed. We will consult infectious disease for ESBL UTI. Repeat urinalysis //Nondistention. Negative abdominal film. Continue tube feeding. //Hypernatremia. Add free water flushes. Recheck tomorrow. 62-year-old white female admitted from a long-term facility for sepsis and acute hypoxic respiratory failure //Acute hypoxic hypercapnic respiratory failure secondary to aspiration Was intubated, currently satting well on 3L by NC Chest x-ray revealed bilateral lower lobe atelectasis. No focal infiltrates and /or effusions. However imaging might lag Duonebs every 6 hours with albuterol aerosols 2 hours as needed dyspnea GI: //Aspiration //Gastroesophageal reflux disease ///Sigmoid diverticulosis //Pancolitis //Internal and external hemorrhoids //Status post percutaneous and endoscopic gastrostomy tube placed 11/18 Currently on lansoprazole 30 mg by tube daily. On omeprazole 20 mg daily at home Docusate sodium 100 mg twice daily, senna 8.8 mg twice daily Initiate tube feeding daily via PEG tube with Glucerna 1.5 goal 50 cc an hour per nutrition recommendations Patient had sigmoidoscopy endoscopy 11/15 revealed sigmoid diverticulosis, pancolitis with internal and external hemorrhoids. CT abdomen/pelvis revealed descending colon wall thickening. Atherosclerotic vascular disease. Right hydronephrosis. Atrophic left kidney. Evaluated by general surgery/Dr. Guerrero that he is to be a surgical abdomen. Noted high velocities in SMA. Cannot anticoagulate due to history of bleeding Will do KUB 11/21 as noted with abdominal distention : Status post right nephrostomy tube Nephrolithiasis with right hydronephrosis Renal ultrasound revealed atrophic left kidney with right hydronephrosis with pigtail in place/nephrostomy tube Has decreased UOP urology consulted recommends IR for eval Endo: //Bipolar/schizophrenia //History of right MCA CVA with left-sided weakness //Chronic narcotic/opioid use with oxycodone/acetaminophen Continue Risperdal 0.5 mg by tube 3 times daily. Continue along with sertraline 50 mg p.o. daily Continue gabapentin 100 mg twice daily Avoid narcotics/sedating agents if possible //Essential hypertension //Hyperlipidemia //Coronary artery disease with stents to the RCA and LAD Continue aspirin 81 mg p.o. daily 2D echocardiogram 08/15 revealed EF 60-65%. No regional wall motion abnormality. Mild TR. Pulmonary arterial pressure 37 mmHg Continue metoprolol tartrate 25 mg p.o. twice daily. Hydralazine 50 3 times daily. As needed Nitropaste and nicardipine drip //Diabetes mellitus type 2 Holding insulin detemir 7 units at night. Sliding-scale insulin with Novolin R with Accu-Cheks every 6 hours to maintain euglycemia/low regimen Renal: //Acute kidney injury in the setting of chronic kidney disease stage III a //Right hydronephrosis status post right nephrostomy tube //Right nephrolithiasis Maintain nephrostomy tube Monitor urine output Accurate I's and O's A.m. BMP pending Heme: //Leukocytosis //Normocytic anemia Monitor CBC daily. Follow trends. No indication for transfusion of blood products at this time. Follow-up coags ID: Multidrug-resistant ESBL positive E. coli/multidrug-resistant Pseudomonas and Enterococcus faecalis UTI likely contaminant Currently of piperacillin/tazobactam and metronidazole IV. Blood cultures 2 on admission were no growth tod ate. Urine revealed ESBL positive E. coli. Repeat blood cultures 2, urine and sputum 11/16 with sputum not completed. FEN: //Hypernatremia We will place on half normal saline at 50 cc while currently n.p.o. MSK: //Well healed Sacral decubitus/heel ulcers Wound care evaluation and treat //Prophylaxis -GI -lansoprazole -DVT -SCD/holding pharmacological prophylaxis in light of history of hematuria on TSOAC Discharge Planning Candidate for hospice at long-term living facility. Palliative care is ff Patient is full code however Reed Taylor MD November 22, 2017 12:37
--- NOTE | 2017-11-22 14:41 | HHI.HCPN ---
Reason for visit a. To assist with evaluation and management of symptoms including: dysphagia , pain, altered mental status b. To assist medical decision maker(s) with: better understanding of current medical conditions; weighing benefits/burdens of medical treatment options; making medical treatment decisions. . Subjective/Interval History Patient was transferred back to [facility] on 11/16/2017 secondary to acute hypoxemic/ hypercapnic respiratory failure requiring intubation. Patient was successfully extubated earlier this week. Respirations are unlabored ; oxygen saturation stable at 97% on 2L via nasal cannula. Follow-up chest x- ray yesterday 11/19/2017 demonstrated the lungs to be symmetrically aerated without evidence of mass, infiltrate or effusion. The cardiomediastinal contours were unremarkable. Echocardiogram on 11/21/2017 showed hyperdynamic left ventricular systolic function with EF 65-70%. Trace TR. Pulmonary arterial pressure 31 mmHg Status post ureteral stent placement on 11/21/2017; retained stent which cannot be removed. 11/21/2017: BUN 28, creatinine 1.76, GFR 29. Nephrology and urology following. Infectious disease was consulted for ESBL UTI; repeat urinalysis pending. Patient remains on antibiotics. KUB was ordered 11/21/2017 secondary to distended abdomen-revealed benign appearing abdomen. Tolerating artificial nutrition today. Having frequent, brown liquid stools. Patient is awake, staring vacantly. She would not answer questions and refused physical examination initially. Patient later responded to simple questions with 1-2 words answers and intermittently followed 1 step simple commands. Affect is flat similar to the day before yesterday on 11/20/2017 when the patient became agitated. Nursing reports the patient was quite agitated earlier this morning but states symptoms resolved after the patient received 2mg IV morphine for breakthrough pain. Patient has a history of chronic pain in her bilateral lower extremities. Currently receiving gabapentin 100 mg BID. Discussed current medical treatment goals with RN (Jlues) Medical treatment goals have been aggressive; patient [facility] likely [facility]. . Family/friend interactions See interval history . Advance Directives Health Care Surrogate: Copy in medical record Advance Directive Specifics Date completed: 03/2013 Health Care Surrogate(s): Cong Wilson--this was misspelled by person completing form son's name is Daniela Objective Vital Signs Date Time Temp Pulse Resp B/P (MAP) Pulse Ox O2 Delivery O2 Flow Rate FiO2 5/25/18 09:28 18 11/22/17 08:30 100 11/22/17 07:00 97 Room Air 11/22/17 04:00 58 11/22/17 04:00 98.1 58 20 150/70 (96) 97 11/22/17 00:00 98.1 68 18 173/75 (107) 97 11/22/17 00:00 68 11/21/17 22:07 97 21 11/21/17 20:00 98.3 60 18 175/81 (112) 99 11/21/17 20:00 60 11/21/17 19:00 98 Room Air 11/21/17 16:00 98.5 70 19 167/74 (105) 99 11/21/17 16:00 64 Intake & Output 11/22/17 11/22/17 07:00 19:00 Intake Total 2025 ml Output Total 1100 ml Balance 925 ml IV Total 1250 ml Tube Feeding 575 ml Other 200 ml Output Urine Total 300 ml Drainage Total 800 ml # Bowel Movements 2 . Physical Exam CONSTITUTIONAL/GENERAL: Well-nourished female status post extubation tolerating 2 L O2 via nasal cannula TUBES/LINES/DRAINS: Peripheral IV upper extremity, nasal cannula, PEG, Podus boots, purewick cath, nephrostomy tube SKIN: No jaundice, rashes, or lesions. No wounds seen anteriorly. Skin warm/dry CARDIOVASCULAR: Regular rate and rhythm without murmur. No JVD. Peripheral pulses symmetric. RESPIRATORY/CHEST: Symmetric, unlabored respirations. Breath sounds diminished bilaterally. GASTROINTESTINAL: Abdomen soft, nontender, nondistended. Status post PEG. Normoactive bowel sounds 4 quadrants GENITOURINARY: Without palpable bladder distension. Purewick cath MUSCULOSKELETAL: Extremities without clubbing, cyanosis. Edema in bilateral lower extremities; left >right. + Edema right upper extremity. Left foot drop? NEUROLOGICAL: Awake, stares vacantly. Does not respond to questions and refuses physical exam initially. Later during examination, patient responds to some questions with brief 1-2 word answers. PSYCHIATRIC: Flat affect, intermittently agitated. Attempted to "swing" at provider . Diagnostic Tests Laboratory Laboratory Tests Test 11/20/17 03:51 11/21/17 04:58 White Blood Count 12.9 TH/MM3 (4.0-11.0) 14.2 TH/MM3 (4.0-11.0) Red Blood Count 3.55 MIL/MM3 (4.00-5.30) 3.56 MIL/MM3 (4.00-5.30) Hemoglobin 9.1 GM/DL (11.6-15.3) 9.0 GM/DL (11.6-15.3) Hematocrit 29.1 % (35.0-46.0) 29.1 % (35.0-46.0) Mean Corpuscular Volume 82.2 FL (80.0-100.0) 81.8 FL (80.0-100.0) Mean Corpuscular Hemoglobin 25.6 PG (27.0-34.0) 25.4 PG (27.0-34.0) Mean Corpuscular Hemoglobin Concent 31.2 % (32.0-36.0) 31.0 % (32.0-36.0) Red Cell Distribution Width 18.2 % (11.6-17.2) 18.1 % (11.6-17.2) Platelet Count 257 TH/MM3 (150-450) 289 TH/MM3 (150-450) Mean Platelet Volume 9.3 FL (7.0-11.0) 9.6 FL (7.0-11.0) Blood Urea Nitrogen 21 MG/DL (7-18) 28 MG/DL (7-18) Creatinine 1.60 MG/DL (0.50-1.00) 1.76 MG/DL (0.50-1.00) Random Glucose 144 MG/DL (74-106) 223 MG/DL (74-106) Calcium Level 8.5 MG/DL (8.5-10.1) 8.4 MG/DL (8.5-10.1) Sodium Level 147 MEQ/L (136-145) 148 MEQ/L (136-145) Potassium Level 3.9 MEQ/L (3.5-5.1) 3.3 MEQ/L (3.5-5.1) Chloride Level 114 MEQ/L (98-107) 114 MEQ/L (98-107) Carbon Dioxide Level 20.6 MEQ/L (21.0-32.0) 23.7 MEQ/L (21.0-32.0) Anion Gap 12 MEQ/L (5-15) 10 MEQ/L (5-15) Estimat Glomerular Filtration Rate 33 ML/MIN (>89) 29 ML/MIN (>89) Phosphorus Level 2.6 MG/DL (2.5-4.9) Magnesium Level 1.9 MG/DL (1.5-2.5) . Result Diagram: 11/21/17 0458 11/21/17 0458 Procedures 11/16/2017: Intubation 11/18/2017: PEG tube placement . Assessment and Plan Disease Oriented Problem List: (1) Anemia (2) Hematuria (3) Acute kidney injury (4) ESBL (extended spectrum beta-lactamase) producing bacteria infection (5) Atrial fibrillation (6) CAD (coronary artery disease) (7) Schizophrenia (8) Dyslipidemia (9) UTI (urinary tract infection) (10) Hydronephrosis (11) Severe sepsis with acute organ dysfunction (12) right MCA stroke 2013, with left hemiparesis (13) hypertension (14) history of decubiti (15) chronic kidney disease (16) coronary artery disease, history of stents (17) dislodging of nephrostomy tube, replaced 07/17/17 Symptom Scale: (1) Dysphagia 0-10 Scale: Unable to quantify (2) Pain 0-10 Scale: Unable to quantify (3) Altered mental status Pertinent Non-Medical Issues Psychosocial: Spiritual: Legal:Patient confused baseline, does not appear to have capacity to make medical decisions does not appear she will regain capacity. Her son is designated as healthcare surrogate on document dated 2012. They have not been able to reach him this admission for consent, of note palliative care was consulted on this patient in July 2017 and at that time there was no answer or voicemail on my multiple attempts. Her review further of old records in May 2017 case management requested wellness checks at patient's son possible address, this person did not live there. Apparently at some point in 2014 the son was incarcerated per CM notes. Not clear his location at this time , per palliative social work lecturer review of [employer] record search 10/16/17 appears a Dev Wilson was arrested through [employer] however he was not incarcerated was released-- not clear if this person is related to pt. Will request [employer] search to identify possible decision makers. 11/11/17 palliative social work lecturer reviewed findings of accurint report and social network search--able to locate and initiate contact through Son's girlfriend number, son is actually DANIELA Wilson [phone] Ethical issues impacting care: none identified Important Contacts SON/HCS Daniela Wilson [phone] NOT Dev Wilson [phone], [phone]-->this # is NOT anyone related to pt . Prognosis This patient has multiple chronic medical conditions. She has been debilitated and lives in a [facility]term. Due to these multiple conditions, she will likely continue to have ongoing complications, setbacks and recurrent hospitalizations. . Code Status: Full Code Plan * FULL CODE * Legal decision maker: Patient confused baseline, does not appear to have capacity to make medical decisions nor does it appear she will regain capacity. Son, Daniela Wilson, is the designated HCS; designation forms completed in 2012. * Goals aggressive for now; continue all available treatments, including full code. * Discussed current medical treatment goals with RN (Jules). * SYMPTOMS: --Altered mental status: Patient status post CVA likely with some residual cognitive deficits. Also with long psychiatric history per records. 11/22/2017 : Patient is awake, staring vacantly. She would not answer questions and refused physical examination initially. Patient later responded to simple questions with 1-2 words answers and intermittently followed 1 step simple commands. Affect is flat similar to the day before yesterday on 11/20/2017 when the patient became agitated and attempted to "swig" at provider. Currently on risperidone 0.5 mg TID and sertraline 50 mg daily; may consider consulting psychiatry for recommendations/medication changes. --Pain: Patient begins moaning/yelling with any type of exam to lower extremities. BLE are edematous; left > right. Bilateral foot drop. ? Etiology chronic immobility/bedbound status. It is noted she is on Gabapentin 100 mg twice daily, may have some neuropathic pain. Per nursing report, patient was quite agitated earlier today and the symptoms resolved after the patient was administered PRN morphine. Agitation may be secondary to pain. May want to consider increasing gabapentin dose or starting the patient on a scheduled analgesic if pain persists/worsens. --Dysphagia- s/p multiple CVAs. Appears has had some degree of ongoing chronic dysphagia 2/2 to, with diet modifications in place. Patient unable to tolerate attempts at modified oral diet per ST. Patient remains NPO after suspected aspiration event for with need for short-term intubation status post PEG tube placement on 11/18/2017. Dietary recommending Glucerna 1.5 at 30 mL's per hour increase 10 mL's per hour as tolerated to goal rate of 50 mL's per hour. * Palliative care will continue to follow during hospital course as condition evolves, to assist patient/decision-maker with understanding of medical conditions, weighing benefits/burdens of treatment options, for clarification of goals of treatment. Additionally will assist with any symptoms of palliative concern . Amy Sommers November 22, 2017 14:41
[2017-11-22] MEDS: ATORVASTATIN 40 MG TAB PO SCH (19:59)
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
[2017-11-23] VITALS (10 sets, daily range): BP systolic 141–185; BP diastolic 65–86; PULSE 66–81; RESP 15–18; TEMP 97.5–98.8; O2SAT 96–100
[2017-11-23] MEDS ORDERED: CEFTOLOZANE-TAZOBACTAM INJ 1,500 MG in SODIUM CHLORIDE 0.9% INJ 100 ML IV SCH ×2
[2017-11-23] MEDS: metroNIDAZOLE 500 MG INJ 100 ML IV SCH ×4 (00:46→18:42)
[2017-11-23] MEDS: SODIUM CHLOR 0.45% 1000 ML INJ 1,000 ML IV SCH (00:54)
[2017-11-23] MEDS: INSULIN NovoLIN REGULAR SUPPLEMENTAL SCALE SQ SCH ×4 (01:04→18:47)
[2017-11-23] MEDS: NS IV SCH ×6 (01:07→15:50)
[2017-11-23] MEDS: CEFTOLOZANE TAZOBACTAM IV SCH ×6 (01:07→15:50)
[2017-11-23] MEDS: LABETALOL HCL 100 MG/20 ML VIAL IV PUSH PRN ×2 (01:50→06:06)
[2017-11-23] MEDS: FLUCONAZOLE 100 MG PREMIX BAG 50 ML IV SCH ×2 (01:54→22:37)
[2017-11-23] MEDS: RESP: ALBUTEROL 2.5 MG/IPRATROPIUM 0.5 MG NEB (SCH) NEB ×2 (03:42→09:45)
[2017-11-23] MEDS: FREE WATER G-TUBE SCH ×5 (05:20→20:00)
[2017-11-23] MEDS: hydrALAZINE HCL 25 MG TAB PO SCH ×2 (05:21→14:18)
[2017-11-23] MEDS: ISOSORBIDE DINITRATE 10 MG TAB PO SCH ×3 (05:21→21:01)
[2017-11-23] MEDS: MORPHINE SULFATE 4 MG/ML INJ IV PRN (06:38)
[2017-11-23 06:43] LABS: AUTOMATED NEUTROPHIL # 6.9 TH/MM3 (1.8-7.7); BASOPHIL # 0.1 TH/MM3 (0-0.2); BASOPHIL % 0.7 % (0.0-2.0); EOSINOPHIL # 0.3 TH/MM3 (0-0.4); EOSINOPHIL % 2.8 % (0.0-4.0); HEMATOCRIT 28.1 % (35.0-46.0); LYMPH % 14.7 % (9.0-44.0); LYMPHOCYTE # 1.3 TH/MM3 (1.0-4.8); MEAN CORPUSCULAR HEMOGLOBIN 26.1 PG (27.0-34.0); MEAN CORPUSCULAR HGB CONC 31.9 % (32.0-36.0); MEAN PLATELET VOLUME 9.8 FL (7.0-11.0); MONOCYTE # 0.6 TH/MM3 (0-0.9); NEUT % 75.8 % (16.0-70.0); PLATELET COUNT 201 TH/MM3 (150-450); RED BLOOD COUNT 3.43 MIL/MM3 (4.00-5.30); RED CELL DISTRIBUTION WIDTH 18.9 % (11.6-17.2); WHITE BLOOD COUNT 9.1 TH/MM3 (4.0-11.0)
[2017-11-23 06:47] LABS: ALBUMIN 2.3 GM/DL (3.4-5.0); BICARBONATE 24.9 MEQ/L (21.0-32.0); CALCIUM 8.2 MG/DL (8.5-10.1); CREATININE 1.46 MG/DL (0.50-1.00)
[2017-11-23] MEDS: POLYETHYLENE GLYCOL 17 GM PKG PO SCH (09:00)
[2017-11-23] MEDS: SENNOSIDES SYRUP 8.8 MG/5 ML CUP PO SCH ×2 (09:00→21:00)
[2017-11-23] MEDS: DOCUSATE SODIUM 100 MG/10 ML UDC PO SCH ×2 (09:00→21:00)
[2017-11-23] MEDS: LACTULOSE SYRUP 20 GM/30 ML CUP PO SCH (09:00)
[2017-11-23] MEDS: CHLORHEXIDINE 0.12% (ORAL KIT) 15 ML CUP MT SCH ×2 (09:28→21:02)
[2017-11-23] MEDS: risperiDONE 0.5 MG TAB PO SCH ×3 (10:30→18:44)
[2017-11-23] MEDS: METOPROLOL TARTRATE 25 MG TAB PO SCH ×2 (10:31→21:01)
[2017-11-23] MEDS: SERTRALINE HCL 50 MG TAB PO SCH (10:31)
[2017-11-23] MEDS: GABAPENTIN 100 MG CAP PO SCH ×2 (10:31→21:01)
[2017-11-23] MEDS: LANSOPRAZOLE SOLUTAB 30 MG TAB NG SCH (10:31)
[2017-11-23] MEDS: ASPIRIN 81 MG CHEW TAB CHEW SCH (10:31)
[2017-11-23] MEDS: MUPIROCIN 2% OINT 1 APPLIC/GM SYR EACH NARE SCH ×2 (10:32→21:02)
[2017-11-23] MEDS: SODIUM CHLORIDE 0.9% FLUSH 10 ML FLUSH IV FLUSH SCH ×2 (10:32→21:02)
[2017-11-23] MEDS: ARTIFICIAL TEARS OPTH SOLN 15 ML BTL EACH EYE SCH ×2 (10:32→21:00)
[2017-11-23] MEDS: niCARdipine INJ 25 MG in SODIUM CHLOR 0.9% 250 ML INJ 250 ML IV PRN ×3 (11:54→19:30)
[2017-11-23] MEDS ORDERED: amLODIPine BESYLATE 5 MG TAB PO SCH (12:30)
--- NOTE | 2017-11-23 15:51 | HHI.PR ---
Subjective Remarks Patient seen today around noon. Says she is feeling all right. No complaints. Objective Vital Signs Date Time Temp Pulse Resp B/P (MAP) Pulse Ox O2 Delivery O2 Flow Rate FiO2 11/23/17 15:29 74 149/64 11/23/17 11:54 64 183/81 11/23/17 09:45 98 21 11/23/17 08:00 97.8 75 15 167/74 (105) 99 11/23/17 07:00 99 Room Air 11/23/17 04:00 98.6 66 16 181/86 (117) 99 11/23/17 04:00 66 11/23/17 00:00 79 11/23/17 00:00 98.4 79 18 165/77 (106) 100 11/22/17 20:53 99 11/22/17 20:00 98.2 76 22 168/89 (115) 100 11/22/17 20:00 76 11/22/17 19:00 100 Room Air 11/22/17 16:00 98.1 75 18 149/73 (98) 97 11/22/17 16:00 75 I/O 11/22/17 11/22/17 11/22/17 11/23/17 11/23/17 11/23/17 07:00 15:00 23:00 07:00 15:00 23:00 Intake Total 1925 ml 967 ml 900 ml 1552 ml Output Total 1100 ml 1050 ml 345 ml 900 ml Balance 825 ml -83 ml 555 ml 652 ml IV Total 1150 ml 50 ml 1197 ml Tube Feeding 575 ml 607 ml 550 ml Other 200 ml 360 ml 300 ml 355 ml Output Urine Total 300 ml 25 ml 20 ml Drainage Total 800 ml 1025 ml 325 ml 900 ml # Voids 2 # Bowel Movements 2 2 2 Result Diagram: 11/23/1753011/23/1731 Objective Remarks GENERAL: Patient sitting up in bed. Appears comfortable. Talking today. SKIN: Warm and dry. HEAD: Normocephalic. EYES: No scleral icterus. No injection or drainage. NECK: Supple, trachea midline. No JVD. CARDIOVASCULAR: Regular rate and rhythm without murmurs, gallops, or rubs. RESPIRATORY: Breath sounds equal bilaterally. No accessory muscle use. GASTROINTESTINAL: Abdomen soft, non-tender, nondistended. PEG tube in place without any surrounding erythema. MUSCULOSKELETAL: No cyanosis, or edema. BACK: Nontender without obvious deformity. No CVA tenderness. A/P Assessment and Plan =======11/23/17======== //ESBL E. coli UTI //Status post ureteral stent placement 11/21 //Acute kidney injury. -Creatinine 1. 4 6. Improving = Nephrology, urology following. = White blood cell count improving to 9.1 today. Antibiotics, antifungals adjusted by infectious disease. Appreciate assistance. Repeat cultures pending by ID. //Accelerated hypertension with systolic blood pressures up to the 180s. Will add back amlodipine at 10 mg a day. Increase hydralazine. Nicardipine drip as needed. //Abdominal distention. This has resolved. //Hypernatremia. Add free water flushes. Cussed with nursing again. Recheck tomorrow. 62-year-old white female admitted from a long-term facility for sepsis and acute hypoxic respiratory failure //Acute hypoxic hypercapnic respiratory failure secondary to aspiration Was intubated, currently satting well on 3L by NC Chest x-ray revealed bilateral lower lobe atelectasis. No focal infiltrates and /or effusions. However imaging might lag Duonebs every 6 hours with albuterol aerosols 2 hours as needed dyspnea GI: //Aspiration //Gastroesophageal reflux disease ///Sigmoid diverticulosis //Pancolitis //Internal and external hemorrhoids //Status post percutaneous and endoscopic gastrostomy tube placed 11/18 Currently on lansoprazole 30 mg by tube daily. On omeprazole 20 mg daily at home Docusate sodium 100 mg twice daily, senna 8.8 mg twice daily Initiate tube feeding daily via PEG tube with Glucerna 1.5 goal 50 cc an hour per nutrition recommendations Patient had sigmoidoscopy endoscopy 11/15 revealed sigmoid diverticulosis, pancolitis with internal and external hemorrhoids. CT abdomen/pelvis revealed descending colon wall thickening. Atherosclerotic vascular disease. Right hydronephrosis. Atrophic left kidney. Evaluated by general surgery/Dr. Guerrero that he is to be a surgical abdomen. Noted high velocities in SMA. Cannot anticoagulate due to history of bleeding Will do KUB 11/21 as noted with abdominal distention : Status post right nephrostomy tube Nephrolithiasis with right hydronephrosis Renal ultrasound revealed atrophic left kidney with right hydronephrosis with pigtail in place/nephrostomy tube Has decreased UOP urology consulted recommends IR for eval Endo: //Bipolar/schizophrenia //History of right MCA CVA with left-sided weakness //Chronic narcotic/opioid use with oxycodone/acetaminophen Continue Risperdal 0.5 mg by tube 3 times daily. Continue along with sertraline 50 mg p.o. daily Continue gabapentin 100 mg twice daily Avoid narcotics/sedating agents if possible //Essential hypertension //Hyperlipidemia //Coronary artery disease with stents to the RCA and LAD Continue aspirin 81 mg p.o. daily 2D echocardiogram 08/15 revealed EF 60-65%. No regional wall motion abnormality. Mild TR. Pulmonary arterial pressure 37 mmHg Continue metoprolol tartrate 25 mg p.o. twice daily. Hydralazine 50 3 times daily. As needed Nitropaste and nicardipine drip //Diabetes mellitus type 2 Holding insulin detemir 7 units at night. Sliding-scale insulin with Novolin R with Accu-Cheks every 6 hours to maintain euglycemia/low regimen Renal: //Acute kidney injury in the setting of chronic kidney disease stage III a //Right hydronephrosis status post right nephrostomy tube //Right nephrolithiasis Maintain nephrostomy tube Monitor urine output Accurate I's and O's A.m. BMP pending Heme: //Leukocytosis //Normocytic anemia Monitor CBC daily. Follow trends. No indication for transfusion of blood products at this time. Follow-up coags ID: Multidrug-resistant ESBL positive E. coli/multidrug-resistant Pseudomonas and Enterococcus faecalis UTI likely contaminant Currently of piperacillin/tazobactam and metronidazole IV. Blood cultures 2 on admission were no growth tod ate. Urine revealed ESBL positive E. coli. Repeat blood cultures 2, urine and sputum 11/16 with sputum not completed. FEN: //Hypernatremia We will place on half normal saline at 50 cc while currently n.p.o. MSK: //Well healed Sacral decubitus/heel ulcers Wound care evaluation and treat //Prophylaxis -GI -lansoprazole -DVT -SCD/holding pharmacological prophylaxis in light of history of hematuria on TSOAC Discharge Planning Candidate for hospice at long-term living facility. Palliative care is ff Patient is full code however Reed Taylor MD November 23, 2017 15:51
[2017-11-23] MEDS ORDERED: amLODIPine BESYLATE 5 MG TAB G-TUBE ONE (16:00)
[2017-11-23] MEDS ORDERED: amLODIPine BESYLATE 5 MG TAB PO ONE (16:00)
--- NOTE | 2017-11-23 16:12 | HHI.IDPN ---
Subjective Subjective Remarks is a 62 y/o CF with PMHx of prior Sepsis, CVA, retention of urine s/p Percutaneous Nephrostomy on right side, prior h/o Schizophrenia. Most of the history is by review of medical records. Patient presented to the ED on 2017 from her nursing facility with reports of gurgling respirations, tachypnea and O2 sats in the 50s. She apparently is a resident of [facility] due to CVA, sepsis. While in the ED there is reported temperature of 102.9. Strong urine odor was reported by EMS. In the ED, patient was noted to have WBC 18.2, H/H 7.7/24.9, lactic acid 0.9. BUN 61/creatinine 3.97, GFR 11. Sepsis workup initiated. CXR with no acute process. CT A/P with wall thickening noted. Extensive atherosclerosis noted concerning for infarct. Right side Percutaneous Nephrostomy with multiple renal stones. Patient was transfused 2 units packed cells for acute anemia. General surgery was consulted due to CT abdomen findings. Patient with colitis most notable at hepatic flexure. GI consulted and patient was started on empiric Zosyn, and Flagyl. Patient underwent EGD and Colonoscopy. Colonic path with focal colitis. UA done on admission and repeated thereafter is positive for MDR PSAE and C.albicans. Cath specimens appear to be collected from nephrostomy tubes as there is not much output from the PC Nephrostomy tubes. WBC continues to be elevated. Notes reviewed D/W RN Afebrile BP ok Had placement of new stent R 11/21 Cultures reviewed Creatinine slightly better Antibiotics Zerbaxa Flagyl Diflucan Current Medications Medications (Trade) Dose Ordered Sig/Sukhi Route Start Time Stop Time Status Last Admin (NS Flush) 2 ml UNSCH PRN IV FLUSH 11/10/17 11:15 (NS Flush) 2 ml BID IV FLUSH 11/10/17 21:00 11/23/17 10:32 (Zofran Odt) 4 mg Q6H PRN PO 11/10/17 11:15 (Narcan Inj) 0.4 mg UNSCH PRN IV PUSH 11/10/17 11:15 (Benadryl) 25 mg Q4H PRN PO 11/10/17 11:45 Metronidazole 100 ml @ 100 mls/hr Q6H IV 11/10/17 13:00 11/23/17 12:31 (Morphine Inj) 2 mg Q4H PRN IV 11/11/17 18:30 11/23/17 06:38 (Neurontin) 100 mg BID PO 11/11/17 21:00 11/23/17 10:31 (Lopressor) 25 mg BID PO 11/11/17 21:00 11/23/17 10:31 (risperDAL) 0.5 mg TID PO 11/12/17 09:00 11/23/17 12:01 (Zoloft) 50 mg DAILY PO 11/12/17 09:00 11/23/17 10:31 (Lipitor) 40 mg HS PO 11/11/17 21:00 11/22/17 19:59 (Bactroban Nasal 2% Oint) Taper BID EACH NARE 11/16/17 09:00 11/12/18 08:59 11/23/17 10:32 (D50w (Vial) Inj) 50 ml UNSCH PRN IV PUSH 11/16/17 07:45 (Glucagon Inj) 1 mg UNSCH PRN OTHER 11/16/17 07:45 (NovoLIN R SUPPLEMENTAL SCALE) 1 Q6HR SQ 11/16/17 12:00 11/23/17 12:30 (Prevacid Odt) 30 mg DAILY NG 11/16/17 09:00 11/23/17 10:31 (Albuterol Neb) 2.5 mg Q2HR NEB PRN NEB 11/16/17 07:45 (Colace Liq) 100 mg Q12HR PO 11/16/17 09:00 11/19/17 07:59 (Senna Liq) 8.8 mg Q12HR PO 11/16/17 09:00 11/19/17 07:58 (Miralax) 17 gm DAILY PO 11/16/17 09:00 11/19/17 07:58 (Lactulose Liq) 30 ml DAILY PO 11/16/17 09:00 11/19/17 07:59 (Tears Naturale Opth Soln) 1 drop BID EACH EYE 11/16/17 09:00 11/23/17 10:32 (Nitroglycerin 2% Oint) 2 inch Q6HR PRN TOPICAL 11/16/17 10:00 11/20/17 11:15 (Peridex 0.12% Liq) 15 ml BID@08,20 MT 11/16/17 20:00 11/23/17 09:28 Potassium Chloride 100 ml @ 50 mls/hr Q2H PRN IV 11/17/17 15:15 Potassium Chloride 100 ml @ 50 mls/hr Q2H PRN IV 11/17/17 15:15 (K-Lyte Cl Eff) 50 meq UNSCH PRN PO 11/17/17 15:15 11/19/17 07:35 Potassium Chloride 100 ml @ 25 mls/hr UNSCH PRN IV 11/17/17 15:15 Potassium Chloride 100 ml @ 50 mls/hr Q2H PRN IV 11/17/17 15:15 11/21/17 10:43 Magnesium Sulfate 4 gm/Sodium Chloride 100 ml @ 50 mls/hr UNSCH PRN IV 11/17/17 15:15 (Mag-Ox) 800 mg UNSCH PRN PO 11/17/17 15:15 Magnesium Sulfate 2 gm/Sodium Chloride 100 ml @ 50 mls/hr UNSCH PRN IV 11/17/17 15:15 (K-Phos) 2,000 mg Q4H PRN PO 11/17/17 15:15 Sodium Phosphate 30 mmol/Sodium Chloride 250 ml @ 42 mls/hr UNSCH PRN IV 11/17/17 15:15 (K-Phos) 2,000 mg UNSCH PRN PO/TUBE 11/17/17 15:15 Potassium Phosphate 30 mmol/ Sodium Chloride 260 ml @ 42 mls/hr UNSCH PRN IV 11/17/17 15:15 11/18/17 06:16 (Aspirin Chew) 81 mg DAILY CHEW 11/19/17 09:00 11/23/17 10:31 Nicardipine HCl 25 mg/Sodium Chloride 260 ml @ 52 mls/hr TITRATE PRN IV 11/18/17 14:30 11/23/17 15:29 (Isordil) 10 mg Q8HR PO 11/20/17 14:00 11/23/17 14:17 (Tylenol 650 Mg/ 20 ml Liq) 650 mg Q6H PRN PO 11/20/17 09:15 (Apresoline Inj) 20 mg Q4H PRN IV PUSH 11/21/17 12:00 (Trandate Inj) 10 mg Q4H PRN IV PUSH 11/21/17 12:00 11/23/17 06:06 Fluconazole/ Sodium Chloride 50 ml @ 50 mls/hr Q24H IV 11/22/17 23:00 11/23/17 01:54 Ceftolozane/ Tazobactam 750 mg/ Sodium Chloride 100 ml @ 100 mls/hr Q8H IV 11/23/17 00:00 11/23/17 15:50 (Free Water) 120 ml Q4HR G-TUBE 11/23/17 16:00 11/23/17 15:50 (Norvasc) 10 mg DAILY G-TUBE 11/24/17 09:00 (Apresoline) 100 mg Q8HR G-TUBE 11/23/17 22:00 Lines PIV Past Medical History Reviewed Allergies: Coded Allergies: *MDRO Multi-Drug Resistant Organism (Verified Adverse Reaction, Unknown, ) 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 ESBL + E. 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 Vital Signs Date Time Temp Pulse Resp B/P (MAP) Pulse Ox O2 Delivery O2 Flow Rate FiO2 11/23/17 15:29 74 149/64 11/23/17 11:54 64 183/81 11/23/17 09:45 98 21 11/23/17 08:00 97.8 75 15 167/74 (105) 99 11/23/17 07:00 99 Room Air 11/23/17 04:00 98.6 66 16 181/86 (117) 99 11/23/17 04:00 66 11/23/17 00:00 79 11/23/17 00:00 98.4 79 18 165/77 (106) 100 11/22/17 20:53 99 11/22/17 20:00 98.2 76 22 168/89 (115) 100 11/22/17 20:00 76 11/22/17 19:00 100 Room Air 11/23/17 11/23/17 11/24/17 15:00 23:00 07:00 Intake Total 1552 ml Output Total 900 ml Balance 652 ml IV Total 1197 ml Other 355 ml Drainage Total 900 ml # Voids 2 # Bowel Movements 2 . Laboratory Tests Test 11/23/17 05:31 White Blood Count 9.1 TH/MM3 Red Blood Count 3.43 MIL/MM3 Hemoglobin 9.0 GM/DL Hematocrit 28.1 % Mean Corpuscular Volume 82.0 FL Mean Corpuscular Hemoglobin 26.1 PG Mean Corpuscular Hemoglobin Concent 31.9 % Red Cell Distribution Width 18.9 % Platelet Count 201 TH/MM3 Mean Platelet Volume 9.8 FL Neutrophils (%) (Auto) 75.8 % Lymphocytes (%) (Auto) 14.7 % Monocytes (%) (Auto) 6.0 % Eosinophils (%) (Auto) 2.8 % Basophils (%) (Auto) 0.7 % Neutrophils # (Auto) 6.9 TH/MM3 Lymphocytes # (Auto) 1.3 TH/MM3 Monocytes # (Auto) 0.6 TH/MM3 Eosinophils # (Auto) 0.3 TH/MM3 Basophils # (Auto) 0.1 TH/MM3 CBC Comment DIFF FINAL Differential Comment Laboratory Tests Test 11/23/17 05:31 Blood Urea Nitrogen 25 MG/DL Creatinine 1.46 MG/DL Random Glucose 178 MG/DL Albumin 2.3 GM/DL Calcium Level 8.2 MG/DL Phosphorus Level 2.0 MG/DL Magnesium Level 2.0 MG/DL Sodium Level 149 MEQ/L Potassium Level 3.7 MEQ/L Chloride Level 114 MEQ/L Carbon Dioxide Level 24.9 MEQ/L Anion Gap 10 MEQ/L Estimat Glomerular Filtration Rate 36 ML/MIN Imaging Last Impressions Drainage Catheter Insertion 11/21/17 0000 Signed Impressions: CONCLUSION: 1. Uncomplicated nephroureteral stent placement as above. Approximately 200 cc of purulent appearing urine was immediately removed from the renal collecting system. Sample was collected for Gram stain and C&S. Findings were also discussed with Dr. Ascencio. Ideally, would need to remove the e xisting ureteral stent given concern for colonization. However, there are signi ficant calcifications along the proximal and distal portions of the stent and t he stent is likely adhered. This along with inferior pole calyx access will juani e antegrade retrieval attempt very challenging and likely not possible. Abdomen X-Ray 11/21/17 0000 Signed Impressions: CONCLUSION: Benign-appearing abdomen. Chest X-Ray 11/19/17 0600 Signed Impressions: Service Date/Time: Sunday, November 19, 2017 03:07 - CONCLUSION: 1. Interval removal of nasogastric tube. 2. The lungs remain clear. Rosales Jay MD Lower Extremity Ultrasound 11/16/17 0000 Signed Impressions: Service Date/Time: Thursday, November 16, 2017 08:49 - CONCLUSION: No evidence of deep venous thrombosis in either lower extremity. Chetan Beltre MD Abdomen Ultrasound 11/14/17 0000 Signed Impressions: Service Date/Time: October 07:56 - CONCLUSION: 1. There is elevated velocity within the proximal SMA which raises the possibility of a focal stenosis. 2. The vessels imaged and appear to be patent. Yo Joiner MD Abdomen/Pelvis CT 11/10/17 0601 Signed Impressions: Service Date/Time: Friday, November 10, 2017 07:44 - CONCLUSION: 1.Focal abnormal circumferential wall thickening involving the descending colon at the level of the hepatic flexure with significant adjacent fluid tracking within the right paracardiac color. Given the extensive atherosclerosis and focal finding concern is for possible infarct. Infection is also within the differential diagnosis. 2. Interval placement of a right-sided percutaneous nephrostomy tube. Stable appearance of the right kidney with multiple renal stones. Josefa Hair MD Head CT 11/10/17 0000 Signed Impressions: Service Date/Time: Friday, November 10, 2017 11:22 - CONCLUSION: Stable exam. No acute abnormality.. Josefa Hair MD Physical Exam GENERAL: Awake and alert, has dysarthria, NAD. SKIN: No rashes, ecchymoses or lesions. Cool and dry. HEAD: Atraumatic. Normocephalic. No temporal or scalp tenderness. EYES: Pupils equal round and reactive. . No scleral icterus. No injection or drainage. ENT: Nose without bleeding, purulent drainage or septal hematoma. Moist mucosa NECK: Trachea midline. No JVD or lymphadenopathy. Supple, nontender, no meningeal signs. CARDIOVASCULAR: Regular rate and rhythm without murmurs, gallops, or rubs. RESPIRATORY: Clear to auscultation. Breath sounds equal bilaterally. No wheezes , rales, or rhonchi. Decreased BS at bases GASTROINTESTINAL: Abdomen soft, mildly distended, PEG site ok, has diffuse tenderness, no guarding or rebound. Cath on back R with clear urine MUSCULOSKELETAL: Bilateral pedal edema. NEUROLOGICAL: Awake and alert. Decreased nasolabial fold on R. Weak on L with contractures. Both feet plantar flexed. Has dysarthria Psych: Calm and cooperative. IV line sites with no e.o infection. Assessment & Plan Remarks Assessment and Plan MDR PSAE complicated UTI C.albicans UTI Both grew from nephrostomy tubes. Currently not on steroids and WBC increasing. Rt nephrostomy tube in place. Pain bilateral LE: no DVT on doppler. ? Neuropathy Recs Continue Zerbaxa IV Continue Diflucan IV Send urine from nephrostomy R Follow cultures Monitor progress D/W Nicole Collazo MD November 23, 2017 16:12
[2017-11-23 17:08] LABS: AMORPHOUS SEDIMENT, URINE RARE; BACTERIA, URINE MANY /hpf; BILIRUBIN, URINE NEG (NEG); BLOOD, URINE MOD (NEG); GLUCOSE,URINE NEG (NEG); KETONE, URINE NEG (NEG); NITRITE,URINE NEG (NEG); PH, URINE 6.5 (5.0-8.5); URINE COLOR YELLOW (YELLW/STRAW); URINE LEUKOCYTE ESTERASE LARGE (NEG)
[2017-11-23] MEDS: hydrALAZINE HCL 25 MG TAB G-TUBE SCH (21:01)
[2017-11-23] MEDS: ATORVASTATIN 40 MG TAB PO SCH (21:01)
[2017-11-24] VITALS (11 sets, daily range): BP systolic 119–156; BP diastolic 56–87; PULSE 81–96; RESP 20–39; TEMP 98.4–98.8; O2SAT 96–100
[2017-11-24] MEDS: CEFTOLOZANE TAZOBACTAM IV SCH ×6 (00:59→17:04)
[2017-11-24] MEDS: metroNIDAZOLE 500 MG INJ 100 ML IV SCH ×4 (00:59→18:04)
[2017-11-24] MEDS: NS IV SCH ×6 (00:59→17:04)
[2017-11-24] MEDS: INSULIN NovoLIN REGULAR SUPPLEMENTAL SCALE SQ SCH ×4 (01:11→18:04)
[2017-11-24] MEDS: niCARdipine INJ 25 MG in SODIUM CHLOR 0.9% 250 ML INJ 250 ML IV PRN ×2 (02:44→10:34)
[2017-11-24] MEDS: FREE WATER G-TUBE SCH ×5 (04:00→20:00)
[2017-11-24 05:41] LABS: AUTOMATED NEUTROPHIL # 9.3 TH/MM3 (1.8-7.7); BASOPHIL # 0.1 TH/MM3 (0-0.2); BASOPHIL % 0.6 % (0.0-2.0); EOSINOPHIL # 0.4 TH/MM3 (0-0.4); EOSINOPHIL % 3.3 % (0.0-4.0); HEMATOCRIT 30.8 % (35.0-46.0); HEMOGLOBIN 9.7 GM/DL (11.6-15.3); LYMPH % 12.2 % (9.0-44.0); LYMPHOCYTE # 1.4 TH/MM3 (1.0-4.8); MEAN CORPUSCULAR HEMOGLOBIN 25.8 PG (27.0-34.0); MEAN CORPUSCULAR HGB CONC 31.5 % (32.0-36.0); MEAN PLATELET VOLUME 10.2 FL (7.0-11.0); MONO % 4.8 % (0.0-8.0); MONOCYTE # 0.6 TH/MM3 (0-0.9); NEUT % 79.1 % (16.0-70.0); PLATELET COUNT 249 TH/MM3 (150-450); RED BLOOD COUNT 3.76 MIL/MM3 (4.00-5.30); RED CELL DISTRIBUTION WIDTH 18.8 % (11.6-17.2); WHITE BLOOD COUNT 11.8 TH/MM3 (4.0-11.0)
[2017-11-24 05:52] LABS: ALBUMIN 2.6 GM/DL (3.4-5.0); BICARBONATE 24.1 MEQ/L (21.0-32.0); CALCIUM 8.3 MG/DL (8.5-10.1); CREATININE 1.37 MG/DL (0.50-1.00); MAGNESIUM 2.1 MG/DL (1.5-2.5); PHOSPHORUS 1.8 MG/DL (2.5-4.9)
[2017-11-24] MEDS: hydrALAZINE HCL 25 MG TAB G-TUBE SCH ×3 (06:07→23:24)
[2017-11-24] MEDS: ISOSORBIDE DINITRATE 10 MG TAB PO SCH ×3 (06:07→22:00)
[2017-11-24] MEDS: DOCUSATE SODIUM 100 MG/10 ML UDC PO SCH ×2 (10:19→20:42)
[2017-11-24] MEDS: POLYETHYLENE GLYCOL 17 GM PKG PO SCH (10:19)
[2017-11-24] MEDS: LACTULOSE SYRUP 20 GM/30 ML CUP PO SCH (10:19)
[2017-11-24] MEDS: amLODIPine BESYLATE 5 MG TAB G-TUBE SCH (10:20)
[2017-11-24] MEDS: LANSOPRAZOLE SOLUTAB 30 MG TAB NG SCH (10:20)
[2017-11-24] MEDS: SERTRALINE HCL 50 MG TAB PO SCH (10:20)
[2017-11-24] MEDS: GABAPENTIN 100 MG CAP PO SCH ×2 (10:20→20:41)
[2017-11-24] MEDS: METOPROLOL TARTRATE 25 MG TAB PO SCH ×2 (10:20→20:41)
[2017-11-24] MEDS: SENNOSIDES SYRUP 8.8 MG/5 ML CUP PO SCH ×2 (10:21→20:42)
[2017-11-24] MEDS: SODIUM CHLORIDE 0.9% FLUSH 10 ML FLUSH IV FLUSH SCH ×2 (10:21→20:41)
[2017-11-24] MEDS: MUPIROCIN 2% OINT 1 APPLIC/GM SYR EACH NARE SCH ×2 (10:21→20:42)
[2017-11-24] MEDS: CHLORHEXIDINE 0.12% (ORAL KIT) 15 ML CUP MT SCH ×2 (10:22→20:42)
[2017-11-24] MEDS: ARTIFICIAL TEARS OPTH SOLN 15 ML BTL EACH EYE SCH ×2 (10:22→20:50)
[2017-11-24] MEDS: ASPIRIN 81 MG CHEW TAB CHEW SCH (10:27)
[2017-11-24] MEDS: risperiDONE 0.5 MG TAB PO SCH ×3 (10:51→18:26)
[2017-11-24] MEDS ORDERED: POTASSIUM PHOSPHATE INJ 15 MMOL in SODIUM CHLORIDE 0.9% INJ 150 ML IV ONE (11:00)
--- NOTE | 2017-11-24 11:08 | HHI.PR ---
Subjective Remarks She says she is feeling all right. Denies any pain. Denies any shortness of breath. Limited communication however Objective Vital Signs Date Time Temp Pulse Resp B/P (MAP) Pulse Ox O2 Delivery O2 Flow Rate FiO2 11/24/17 10:34 98 167/75 11/24/17 08:11 100 21 11/24/17 04:00 84 11/24/17 04:00 98.8 84 21 121/56 (77) 99 11/24/17 02:44 82 112/55 11/24/17 00:00 81 11/24/17 00:00 98.4 81 21 119/56 (77) 98 11/23/17 20:17 99 11/23/17 20:00 98.8 81 18 142/65 (90) 99 11/23/17 20:00 81 11/23/17 19:30 81 151/61 11/23/17 19:00 99 Room Air 11/23/17 16:00 98.6 78 17 141/67 (91) 96 11/23/17 16:00 78 11/23/17 15:29 74 149/64 11/23/17 14:00 68 11/23/17 12:00 97.5 67 15 185/81 (115) 99 11/23/17 12:00 67 11/23/17 11:54 64 183/81 I/O 11/23/17 11/23/17 11/23/17 11/24/17 11/24/17 11/24/17 07:00 15:00 23:00 07:00 15:00 23:00 Intake Total 900 ml 1552 ml 532 ml 1370 ml Output Total 345 ml 900 ml 525 ml 900 ml Balance 555 ml 652 ml 7 ml 470 ml IV Total 50 ml 1197 ml 482 ml Tube Feeding 550 ml 1070 ml Other 300 ml 355 ml 50 ml 300 ml Output Urine Total 20 ml Drainage Total 325 ml 900 ml 525 ml 900 ml # Voids 2 # Bowel Movements 2 Result Diagram: 11/24/17 0355 11/24/17 0355 Objective Remarks GENERAL: Patient sitting up in bed. Appears comfortable. Talking today. SKIN: Warm and dry. HEAD: Normocephalic. EYES: No scleral icterus. No injection or drainage. NECK: Supple, trachea midline. No JVD. CARDIOVASCULAR: Regular rate and rhythm without murmurs, gallops, or rubs. RESPIRATORY: Breath sounds equal bilaterally. No accessory muscle use. GASTROINTESTINAL: Abdomen soft, non-tender, nondistended. PEG tube in place without any surrounding erythema. MUSCULOSKELETAL: No cyanosis. Patient with 2+ bilateral lower extremity edema. BACK: Nontender without obvious deformity. No CVA tenderness. A/P Assessment and Plan =======11/24/17======== //ESBL E. coli UTI //Status post ureteral stent placement 11/21 //Acute kidney injury. -Creatinine 1.37 Improving = Nephrology, urology following. = White count up 11.8 but relatively stable. Any antibiotics and antifungals as per infectious disease. Appreciate assistance. Repeat urine cultures pending by ID. //Accelerated hypertension with systolic blood pressures up to the 180s. Improved on amlodipine at 10 mg a day, hydralazine 100 mg 3 times daily. //Hypernatremia. Increase free water flushes.. Cussed with nursing again. Recheck tomorrow. //Bilateral lower extremity edema. Will check BNP. Could be secondary to disuse. 62-year-old white female admitted from a long-term facility for sepsis and acute hypoxic respiratory failure //Acute hypoxic hypercapnic respiratory failure secondary to aspiration Was intubated, currently satting well on 3L by NC Chest x-ray revealed bilateral lower lobe atelectasis. No focal infiltrates and /or effusions. However imaging might lag Duonebs every 6 hours with albuterol aerosols 2 hours as needed dyspnea GI: //Aspiration //Gastroesophageal reflux disease ///Sigmoid diverticulosis //Pancolitis //Internal and external hemorrhoids //Status post percutaneous and endoscopic gastrostomy tube placed 11/18 Currently on lansoprazole 30 mg by tube daily. On omeprazole 20 mg daily at home Docusate sodium 100 mg twice daily, senna 8.8 mg twice daily Initiate tube feeding daily via PEG tube with Glucerna 1.5 goal 50 cc an hour per nutrition recommendations Patient had sigmoidoscopy endoscopy 11/15 revealed sigmoid diverticulosis, pancolitis with internal and external hemorrhoids. CT abdomen/pelvis revealed descending colon wall thickening. Atherosclerotic vascular disease. Right hydronephrosis. Atrophic left kidney. Evaluated by general surgery/Dr. Guerrero that he is to be a surgical abdomen. Noted high velocities in SMA. Cannot anticoagulate due to history of bleeding Will do KUB 11/21 as noted with abdominal distention : Status post right nephrostomy tube Nephrolithiasis with right hydronephrosis Renal ultrasound revealed atrophic left kidney with right hydronephrosis with pigtail in place/nephrostomy tube Has decreased UOP urology consulted recommends IR for eval Endo: //Bipolar/schizophrenia //History of right MCA CVA with left-sided weakness //Chronic narcotic/opioid use with oxycodone/acetaminophen Continue Risperdal 0.5 mg by tube 3 times daily. Continue along with sertraline 50 mg p.o. daily Continue gabapentin 100 mg twice daily Avoid narcotics/sedating agents if possible //Essential hypertension //Hyperlipidemia //Coronary artery disease with stents to the RCA and LAD Continue aspirin 81 mg p.o. daily 2D echocardiogram 08/15 revealed EF 60-65%. No regional wall motion abnormality. Mild TR. Pulmonary arterial pressure 37 mmHg Continue metoprolol tartrate 25 mg p.o. twice daily. Hydralazine 50 3 times daily. As needed Nitropaste and nicardipine drip //Diabetes mellitus type 2 Holding insulin detemir 7 units at night. Sliding-scale insulin with Novolin R with Accu-Cheks every 6 hours to maintain euglycemia/low regimen Renal: //Acute kidney injury in the setting of chronic kidney disease stage III a //Right hydronephrosis status post right nephrostomy tube //Right nephrolithiasis Maintain nephrostomy tube Monitor urine output Accurate I's and O's A.m. BMP pending Heme: //Leukocytosis //Normocytic anemia Monitor CBC daily. Follow trends. No indication for transfusion of blood products at this time. Follow-up coags ID: Multidrug-resistant ESBL positive E. coli/multidrug-resistant Pseudomonas and Enterococcus faecalis UTI likely contaminant Currently of piperacillin/tazobactam and metronidazole IV. Blood cultures 2 on admission were no growth tod ate. Urine revealed ESBL positive E. coli. Repeat blood cultures 2, urine and sputum 11/16 with sputum not completed. FEN: //Hypernatremia We will place on half normal saline at 50 cc while currently n.p.o. MSK: //Well healed Sacral decubitus/heel ulcers Wound care evaluation and treat //Prophylaxis -GI -lansoprazole -DVT -SCD/holding pharmacological prophylaxis in light of history of hematuria on TSOAC Discharge Planning Candidate for hospice at long-term living facility. Palliative care is ff Patient is full code however Reed Taylor MD November 24, 2017 11:08
--- NOTE | 2017-11-24 12:04 | HHI.PR ---
Subjective Patient symptoms today denies pain, fevers, chills. limited communication. Objective Vital Signs Vital Signs Date Time Temp Pulse Resp B/P (MAP) Pulse Ox O2 Delivery O2 Flow Rate FiO2 11/24/17 10:34 98 167/75 11/24/17 08:11 100 21 11/24/17 04:00 84 11/24/17 04:00 98.8 84 21 121/56 (77) 99 11/24/17 02:44 82 112/55 11/24/17 00:00 81 11/24/17 00:00 98.4 81 21 119/56 (77) 98 11/23/17 20:17 99 11/23/17 20:00 98.8 81 18 142/65 (90) 99 11/23/17 20:00 81 11/23/17 19:30 81 151/61 11/23/17 19:00 99 Room Air 11/23/17 16:00 98.6 78 17 141/67 (91) 96 11/23/17 16:00 78 11/23/17 15:29 74 149/64 11/23/17 14:00 68 Intake & Output 11/24/17 11/24/17 07:00 19:00 Intake Total 1370 ml Output Total 900 ml Balance 470 ml Tube Feeding 1070 ml Other 300 ml Drainage Total 900 ml Result Diagram: 11/24/17 0355 11/24/17 0355 Objective Remarks NAD. abd soft Right PCNT draining pink urine Medications and IVs Current Medications Medications (Trade) Dose Ordered Sig/Sukhi Route Start Time Stop Time Status Last Admin (NS Flush) 2 ml UNSCH PRN IV FLUSH 11/10/17 11:15 (NS Flush) 2 ml BID IV FLUSH 11/10/17 21:00 11/24/17 10:21 (Zofran Odt) 4 mg Q6H PRN PO 11/10/17 11:15 (Narcan Inj) 0.4 mg UNSCH PRN IV PUSH 11/10/17 11:15 (Benadryl) 25 mg Q4H PRN PO 11/10/17 11:45 Metronidazole 100 ml @ 100 mls/hr Q6H IV 11/10/17 13:00 11/24/17 06:10 (Morphine Inj) 2 mg Q4H PRN IV 11/11/17 18:30 11/23/17 06:38 (Neurontin) 100 mg BID PO 11/11/17 21:00 11/24/17 10:20 (Lopressor) 25 mg BID PO 11/11/17 21:00 11/24/17 10:20 (risperDAL) 0.5 mg TID PO 11/12/17 09:00 11/24/17 10:51 (Zoloft) 50 mg DAILY PO 11/12/17 09:00 11/24/17 10:20 (Lipitor) 40 mg HS PO 11/11/17 21:00 11/23/17 21:01 (Bactroban Nasal 2% Oint) Taper BID EACH NARE 11/16/17 09:00 11/12/18 08:59 11/24/17 10:21 (D50w (Vial) Inj) 50 ml UNSCH PRN IV PUSH 11/16/17 07:45 (Glucagon Inj) 1 mg UNSCH PRN OTHER 11/16/17 07:45 (NovoLIN R SUPPLEMENTAL SCALE) 1 Q6HR SQ 11/16/17 12:00 11/24/17 06:00 (Prevacid Odt) 30 mg DAILY NG 11/16/17 09:00 11/24/17 10:20 (Albuterol Neb) 2.5 mg Q2HR NEB PRN NEB 11/16/17 07:45 (Colace Liq) 100 mg Q12HR PO 11/16/17 09:00 11/24/17 10:19 (Senna Liq) 8.8 mg Q12HR PO 11/16/17 09:00 11/24/17 10:21 (Miralax) 17 gm DAILY PO 11/16/17 09:00 11/24/17 10:19 (Lactulose Liq) 30 ml DAILY PO 11/16/17 09:00 11/24/17 10:19 (Tears Naturale Opth Soln) 1 drop BID EACH EYE 11/16/17 09:00 11/24/17 10:22 (Nitroglycerin 2% Oint) 2 inch Q6HR PRN TOPICAL 11/16/17 10:00 11/20/17 11:15 (Peridex 0.12% Liq) 15 ml BID@08,20 MT 11/16/17 20:00 11/24/17 10:22 Potassium Chloride 100 ml @ 50 mls/hr Q2H PRN IV 11/17/17 15:15 Potassium Chloride 100 ml @ 50 mls/hr Q2H PRN IV 11/17/17 15:15 (K-Lyte Cl Eff) 50 meq UNSCH PRN PO 11/17/17 15:15 11/19/17 07:35 Potassium Chloride 100 ml @ 25 mls/hr UNSCH PRN IV 11/17/17 15:15 Potassium Chloride 100 ml @ 50 mls/hr Q2H PRN IV 11/17/17 15:15 11/21/17 10:43 Magnesium Sulfate 4 gm/Sodium Chloride 100 ml @ 50 mls/hr UNSCH PRN IV 11/17/17 15:15 (Mag-Ox) 800 mg UNSCH PRN PO 11/17/17 15:15 Magnesium Sulfate 2 gm/Sodium Chloride 100 ml @ 50 mls/hr UNSCH PRN IV 11/17/17 15:15 (K-Phos) 2,000 mg Q4H PRN PO 11/17/17 15:15 Sodium Phosphate 30 mmol/Sodium Chloride 250 ml @ 42 mls/hr UNSCH PRN IV 11/17/17 15:15 (K-Phos) 2,000 mg UNSCH PRN PO/TUBE 11/17/17 15:15 Potassium Phosphate 30 mmol/ Sodium Chloride 260 ml @ 42 mls/hr UNSCH PRN IV 11/17/17 15:15 11/18/17 06:16 (Aspirin Chew) 81 mg DAILY CHEW 11/19/17 09:00 11/24/17 10:27 Nicardipine HCl 25 mg/Sodium Chloride 260 ml @ 52 mls/hr TITRATE PRN IV 11/18/17 14:30 11/24/17 10:34 (Isordil) 10 mg Q8HR PO 11/20/17 14:00 11/24/17 06:07 (Tylenol 650 Mg/ 20 ml Liq) 650 mg Q6H PRN PO 11/20/17 09:15 (Apresoline Inj) 20 mg Q4H PRN IV PUSH 11/21/17 12:00 (Trandate Inj) 10 mg Q4H PRN IV PUSH 11/21/17 12:00 11/23/17 06:06 Fluconazole/ Sodium Chloride 50 ml @ 50 mls/hr Q24H IV 11/22/17 23:00 11/23/17 22:37 Ceftolozane/ Tazobactam 750 mg/ Sodium Chloride 100 ml @ 100 mls/hr Q8H IV 11/23/17 00:00 11/24/17 10:19 (Norvasc) 10 mg DAILY G-TUBE 11/24/17 09:00 11/24/17 10:20 (Apresoline) 100 mg Q8HR G-TUBE 11/23/17 22:00 11/24/17 06:07 (Free Water) 160 ml Q4HR G-TUBE 11/24/17 12:00 Potassium Phosphate 15 mmol/ Sodium Chloride 155 ml @ 38.75 mls/ hr ONCE ONCE IV 11/24/17 11:00 11/24/17 14:59 11/24/17 10:34 Assessment and Plan Assessment and Plan 62y.o F with urosepsis secondary to large right renal stone, retained calcified ureteral stent -Continue antibiotics -She will need to be discharged home with nephrostomy tube in place. She will need multiple endoscopic procedures to remove retained stent. Due to body habitus, in particular, her contracted left arm, she cannot undergo a Percutaneous Nephrolithotomy. Rafi Stevenson MD November 24, 2017 12:04
--- NOTE | 2017-11-24 13:07 | HHI.IDPN ---
Subjective Subjective Remarks is a 62 y/o CF with PMHx of prior Sepsis, CVA, retention of urine s/p Percutaneous Nephrostomy on right side, prior h/o Schizophrenia. Most of the history is by review of medical records. Patient presented to the ED on 2017 from her nursing facility with reports of gurgling respirations, tachypnea and O2 sats in the 50s. She apparently is a resident of [facility] due to CVA, sepsis. While in the ED there is reported temperature of 102.9. Strong urine odor was reported by EMS. In the ED, patient was noted to have WBC 18.2, H/H 7.7/24.9, lactic acid 0.9. BUN 61/creatinine 3.97, GFR 11. Sepsis workup initiated. CXR with no acute process. CT A/P with wall thickening noted. Extensive atherosclerosis noted concerning for infarct. Right side Percutaneous Nephrostomy with multiple renal stones. Patient was transfused 2 units packed cells for acute anemia. General surgery was consulted due to CT abdomen findings. Patient with colitis most notable at hepatic flexure. GI consulted and patient was started on empiric Zosyn, and Flagyl. Patient underwent EGD and Colonoscopy. Colonic path with focal colitis. UA done on admission and repeated thereafter is positive for MDR PSAE and C.albicans. Cath specimens appear to be collected from nephrostomy tubes as there is not much output from the PC Nephrostomy tubes. WBC continues to be elevated. Notes reviewed D/W RN Afebrile BP ok C/O pain Had placement of new stent R 11/21 Cultures reviewed Creatinine slightly better Antibiotics Zerbaxa Diflucan Current Medications Medications (Trade) Dose Ordered Sig/Sukhi Route Start Time Stop Time Status Last Admin (NS Flush) 2 ml UNSCH PRN IV FLUSH 11/10/17 11:15 (NS Flush) 2 ml BID IV FLUSH 11/10/17 21:00 11/24/17 10:21 (Zofran Odt) 4 mg Q6H PRN PO 11/10/17 11:15 (Narcan Inj) 0.4 mg UNSCH PRN IV PUSH 11/10/17 11:15 (Benadryl) 25 mg Q4H PRN PO 11/10/17 11:45 Metronidazole 100 ml @ 100 mls/hr Q6H IV 11/10/17 13:00 11/24/17 06:10 (Morphine Inj) 2 mg Q4H PRN IV 11/11/17 18:30 11/23/17 06:38 (Neurontin) 100 mg BID PO 11/11/17 21:00 11/24/17 10:20 (Lopressor) 25 mg BID PO 11/11/17 21:00 11/24/17 10:20 (risperDAL) 0.5 mg TID PO 11/12/17 09:00 11/24/17 10:51 (Zoloft) 50 mg DAILY PO 11/12/17 09:00 11/24/17 10:20 (Lipitor) 40 mg HS PO 11/11/17 21:00 11/23/17 21:01 (Bactroban Nasal 2% Oint) Taper BID EACH NARE 11/16/17 09:00 11/12/18 08:59 11/24/17 10:21 (D50w (Vial) Inj) 50 ml UNSCH PRN IV PUSH 11/16/17 07:45 (Glucagon Inj) 1 mg UNSCH PRN OTHER 11/16/17 07:45 (NovoLIN R SUPPLEMENTAL SCALE) 1 Q6HR SQ 11/16/17 12:00 11/24/17 12:23 (Prevacid Odt) 30 mg DAILY NG 11/16/17 09:00 11/24/17 10:20 (Albuterol Neb) 2.5 mg Q2HR NEB PRN NEB 11/16/17 07:45 (Colace Liq) 100 mg Q12HR PO 11/16/17 09:00 11/24/17 10:19 (Senna Liq) 8.8 mg Q12HR PO 11/16/17 09:00 11/24/17 10:21 (Miralax) 17 gm DAILY PO 11/16/17 09:00 11/24/17 10:19 (Lactulose Liq) 30 ml DAILY PO 11/16/17 09:00 11/24/17 10:19 (Tears Naturale Opth Soln) 1 drop BID EACH EYE 11/16/17 09:00 11/24/17 10:22 (Nitroglycerin 2% Oint) 2 inch Q6HR PRN TOPICAL 11/16/17 10:00 11/20/17 11:15 (Peridex 0.12% Liq) 15 ml BID@08,20 MT 11/16/17 20:00 11/24/17 10:22 Potassium Chloride 100 ml @ 50 mls/hr Q2H PRN IV 11/17/17 15:15 Potassium Chloride 100 ml @ 50 mls/hr Q2H PRN IV 11/17/17 15:15 (K-Lyte Cl Eff) 50 meq UNSCH PRN PO 11/17/17 15:15 11/19/17 07:35 Potassium Chloride 100 ml @ 25 mls/hr UNSCH PRN IV 11/17/17 15:15 Potassium Chloride 100 ml @ 50 mls/hr Q2H PRN IV 11/17/17 15:15 11/21/17 10:43 Magnesium Sulfate 4 gm/Sodium Chloride 100 ml @ 50 mls/hr UNSCH PRN IV 11/17/17 15:15 (Mag-Ox) 800 mg UNSCH PRN PO 11/17/17 15:15 Magnesium Sulfate 2 gm/Sodium Chloride 100 ml @ 50 mls/hr UNSCH PRN IV 11/17/17 15:15 (K-Phos) 2,000 mg Q4H PRN PO 11/17/17 15:15 Sodium Phosphate 30 mmol/Sodium Chloride 250 ml @ 42 mls/hr UNSCH PRN IV 11/17/17 15:15 (K-Phos) 2,000 mg UNSCH PRN PO/TUBE 11/17/17 15:15 Potassium Phosphate 30 mmol/ Sodium Chloride 260 ml @ 42 mls/hr UNSCH PRN IV 11/17/17 15:15 11/18/17 06:16 (Aspirin Chew) 81 mg DAILY CHEW 11/19/17 09:00 11/24/17 10:27 Nicardipine HCl 25 mg/Sodium Chloride 260 ml @ 52 mls/hr TITRATE PRN IV 11/18/17 14:30 11/24/17 10:34 (Isordil) 10 mg Q8HR PO 11/20/17 14:00 11/24/17 06:07 (Tylenol 650 Mg/ 20 ml Liq) 650 mg Q6H PRN PO 11/20/17 09:15 (Apresoline Inj) 20 mg Q4H PRN IV PUSH 11/21/17 12:00 (Trandate Inj) 10 mg Q4H PRN IV PUSH 11/21/17 12:00 11/23/17 06:06 Fluconazole/ Sodium Chloride 50 ml @ 50 mls/hr Q24H IV 11/22/17 23:00 11/23/17 22:37 Ceftolozane/ Tazobactam 750 mg/ Sodium Chloride 100 ml @ 100 mls/hr Q8H IV 11/23/17 00:00 11/24/17 10:19 (Norvasc) 10 mg DAILY G-TUBE 11/24/17 09:00 11/24/17 10:20 (Apresoline) 100 mg Q8HR G-TUBE 11/23/17 22:00 11/24/17 06:07 (Free Water) 160 ml Q4HR G-TUBE 11/24/17 12:00 11/24/17 12:23 Potassium Phosphate 15 mmol/ Sodium Chloride 155 ml @ 38.75 mls/ hr ONCE ONCE IV 11/24/17 11:00 11/24/17 14:59 11/24/17 10:34 Lines PIV Past Medical History Reviewed Allergies: Coded Allergies: *MDRO Multi-Drug Resistant Organism (Verified Adverse Reaction, Unknown, ) 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 ESBL + E. 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 Vital Signs Date Time Temp Pulse Resp B/P (MAP) Pulse Ox O2 Delivery O2 Flow Rate FiO2 11/24/17 10:34 98 167/75 11/24/17 08:11 100 21 11/24/17 04:00 84 11/24/17 04:00 98.8 84 21 121/56 (77) 99 11/24/17 02:44 82 112/55 11/24/17 00:00 81 11/24/17 00:00 98.4 81 21 119/56 (77) 98 11/23/17 20:17 99 11/23/17 20:00 98.8 81 18 142/65 (90) 99 11/23/17 20:00 81 11/23/17 19:30 81 151/61 11/23/17 19:00 99 Room Air 11/23/17 16:00 98.6 78 17 141/67 (91) 96 11/23/17 16:00 78 11/23/17 15:29 74 149/64 11/23/17 14:00 68 . Laboratory Tests Test 11/23/17 05:31 11/24/17 03:55 White Blood Count 9.1 TH/MM3 11.8 TH/MM3 Red Blood Count 3.43 MIL/MM3 3.76 MIL/MM3 Hemoglobin 9.0 GM/DL 9.7 GM/DL Hematocrit 28.1 % 30.8 % Mean Corpuscular Volume 82.0 FL 82.0 FL Mean Corpuscular Hemoglobin 26.1 PG 25.8 PG Mean Corpuscular Hemoglobin Concent 31.9 % 31.5 % Red Cell Distribution Width 18.9 % 18.8 % Platelet Count 201 TH/MM3 249 TH/MM3 Mean Platelet Volume 9.8 FL 10.2 FL Neutrophils (%) (Auto) 75.8 % 79.1 % Lymphocytes (%) (Auto) 14.7 % 12.2 % Monocytes (%) (Auto) 6.0 % 4.8 % Eosinophils (%) (Auto) 2.8 % 3.3 % Basophils (%) (Auto) 0.7 % 0.6 % Neutrophils # (Auto) 6.9 TH/MM3 9.3 TH/MM3 Lymphocytes # (Auto) 1.3 TH/MM3 1.4 TH/MM3 Monocytes # (Auto) 0.6 TH/MM3 0.6 TH/MM3 Eosinophils # (Auto) 0.3 TH/MM3 0.4 TH/MM3 Basophils # (Auto) 0.1 TH/MM3 0.1 TH/MM3 CBC Comment DIFF FINAL AUTO DIFF Differential Comment AUTO DIFF CONFIRMED Platelet Estimate NORMAL Platelet Morphology Comment NORMAL Red Cell Morphology Comment NORMAL Laboratory Tests Test 11/23/17 05:31 11/24/17 03:55 Blood Urea Nitrogen 25 MG/DL 24 MG/DL Creatinine 1.46 MG/DL 1.37 MG/DL Random Glucose 178 MG/DL 177 MG/DL Albumin 2.3 GM/DL 2.6 GM/DL Calcium Level 8.2 MG/DL 8.3 MG/DL Phosphorus Level 2.0 MG/DL 1.8 MG/DL Magnesium Level 2.0 MG/DL 2.1 MG/DL Sodium Level 149 MEQ/L 148 MEQ/L Potassium Level 3.7 MEQ/L 3.8 MEQ/L Chloride Level 114 MEQ/L 114 MEQ/L Carbon Dioxide Level 24.9 MEQ/L 24.1 MEQ/L Anion Gap 10 MEQ/L 10 MEQ/L Estimat Glomerular Filtration Rate 36 ML/MIN 39 ML/MIN B-Type Natriuretic Peptide 53 PG/ML Microbiology Date/Time Source Procedure Growth Status 11/23/17 16:20 Urine Other Urine Culture Pending Received Imaging Last Impressions Drainage Catheter Insertion 11/21/17 0000 Signed Impressions: CONCLUSION: 1. Uncomplicated nephroureteral stent placement as above. Approximately 200 cc of purulent appearing urine was immediately removed from the renal collecting system. Sample was collected for Gram stain and C&S. Findings were also discussed with Dr. Ascencio. Ideally, would need to remove the e xisting ureteral stent given concern for colonization. However, there are signi ficant calcifications along the proximal and distal portions of the stent and t he stent is likely adhered. This along with inferior pole calyx access will juani e antegrade retrieval attempt very challenging and likely not possible. Abdomen X-Ray 11/21/17 0000 Signed Impressions: CONCLUSION: Benign-appearing abdomen. Chest X-Ray 11/19/17 0600 Signed Impressions: Service Date/Time: Sunday, November 19, 2017 03:07 - CONCLUSION: 1. Interval removal of nasogastric tube. 2. The lungs remain clear. Rosales Jay MD Lower Extremity Ultrasound 11/16/17 0000 Signed Impressions: Service Date/Time: Thursday, November 16, 2017 08:49 - CONCLUSION: No evidence of deep venous thrombosis in either lower extremity. Chetan Beltre MD Abdomen Ultrasound 11/14/17 0000 Signed Impressions: Service Date/Time: October 07:56 - CONCLUSION: 1. There is elevated velocity within the proximal SMA which raises the possibility of a focal stenosis. 2. The vessels imaged and appear to be patent. Yo Joiner MD Abdomen/Pelvis CT 11/10/17 0601 Signed Impressions: Service Date/Time: Friday, November 10, 2017 07:44 - CONCLUSION: 1.Focal abnormal circumferential wall thickening involving the descending colon at the level of the hepatic flexure with significant adjacent fluid tracking within the right paracardiac color. Given the extensive atherosclerosis and focal finding concern is for possible infarct. Infection is also within the differential diagnosis. 2. Interval placement of a right-sided percutaneous nephrostomy tube. Stable appearance of the right kidney with multiple renal stones. Josefa Hair MD Head CT 11/10/17 0000 Signed Impressions: Service Date/Time: Friday, November 10, 2017 11:22 - CONCLUSION: Stable exam. No acute abnormality.. Josefa Hair MD Physical Exam GENERAL: Awake and alert, has dysarthria, NAD. SKIN: No rashes, ecchymoses or lesions. Cool and dry. HEAD: Atraumatic. Normocephalic. No temporal or scalp tenderness. EYES: Pupils equal round and reactive. . No scleral icterus. No injection or drainage. ENT: Nose without bleeding, purulent drainage or septal hematoma. Moist mucosa NECK: Trachea midline. No JVD or lymphadenopathy. Supple, nontender, no meningeal signs. CARDIOVASCULAR: Regular rate and rhythm without murmurs, gallops, or rubs. RESPIRATORY: Clear to auscultation. Breath sounds equal bilaterally. No wheezes , rales, or rhonchi. Decreased BS at bases GASTROINTESTINAL: Abdomen soft, mildly distended, PEG site ok, has diffuse tenderness, no guarding or rebound. Cath on back R with clear urine MUSCULOSKELETAL: Bilateral pedal edema. NEUROLOGICAL: Awake and alert. Decreased nasolabial fold on R. Weak on L with contractures. Both feet plantar flexed. Has dysarthria Psych: Calm and cooperative. IV line sites with no e.o infection. Assessment & Plan Remarks Assessment and Plan MDR PSAE complicated UTI C.albicans UTI Both grew from nephrostomy tubes. Currently not on steroids and WBC increasing. Rt nephrostomy tube in place. Pain bilateral LE: no DVT on doppler. ? Neuropathy Recs Continue Zerbaxa IV Continue Diflucan IV Follow new cultures Monitor progress D/W Nicole Collazo MD November 24, 2017 13:07
[2017-11-24] MEDS: ATORVASTATIN 40 MG TAB PO SCH (20:41)
[2017-11-24] MEDS: FLUCONAZOLE 100 MG PREMIX BAG 50 ML IV SCH (23:26)
[2017-11-25] VITALS (11 sets, daily range): BP systolic 120–174; BP diastolic 63–85; PULSE 18–105; RESP 18–21; TEMP 98.2–98.7; O2SAT 97–99
[2017-11-25] MEDS: metroNIDAZOLE 500 MG INJ 100 ML IV SCH ×4 (00:55→18:15)
[2017-11-25] MEDS: CEFTOLOZANE TAZOBACTAM IV SCH ×8 (00:55→23:20)
[2017-11-25] MEDS: NS IV SCH ×8 (00:55→23:20)
[2017-11-25] MEDS: FREE WATER G-TUBE SCH ×6 (03:47→20:00)
[2017-11-25] MEDS: INSULIN NovoLIN REGULAR SUPPLEMENTAL SCALE SQ SCH ×4 (05:53→18:15)
[2017-11-25] MEDS: ISOSORBIDE DINITRATE 10 MG TAB PO SCH ×3 (05:53→20:38)
[2017-11-25] MEDS: hydrALAZINE HCL 25 MG TAB G-TUBE SCH ×3 (05:53→20:37)
[2017-11-25] MEDS: CHLORHEXIDINE 0.12% (ORAL KIT) 15 ML CUP MT SCH ×2 (08:00→20:00)
[2017-11-25] MEDS: GABAPENTIN 100 MG CAP PO SCH ×2 (08:23→20:37)
[2017-11-25] MEDS: LANSOPRAZOLE SOLUTAB 30 MG TAB NG SCH (08:23)
[2017-11-25] MEDS: MUPIROCIN 2% OINT 1 APPLIC/GM SYR EACH NARE SCH ×2 (08:23→20:38)
[2017-11-25] MEDS: SENNOSIDES SYRUP 8.8 MG/5 ML CUP PO SCH ×2 (08:23→20:37)
[2017-11-25] MEDS: DOCUSATE SODIUM 100 MG/10 ML UDC PO SCH ×2 (08:23→20:37)
[2017-11-25] MEDS: ASPIRIN 81 MG CHEW TAB CHEW SCH (08:24)
[2017-11-25] MEDS: METOPROLOL TARTRATE 25 MG TAB PO SCH ×2 (08:24→20:37)
[2017-11-25] MEDS: amLODIPine BESYLATE 5 MG TAB G-TUBE SCH (08:24)
[2017-11-25] MEDS: LACTULOSE SYRUP 20 GM/30 ML CUP PO SCH (08:24)
[2017-11-25] MEDS: risperiDONE 0.5 MG TAB PO SCH ×3 (08:24→18:15)
[2017-11-25] MEDS: SERTRALINE HCL 50 MG TAB PO SCH (08:24)
[2017-11-25] MEDS: POLYETHYLENE GLYCOL 17 GM PKG PO SCH (08:25)
[2017-11-25] MEDS: ARTIFICIAL TEARS OPTH SOLN 15 ML BTL EACH EYE SCH ×2 (08:25→20:38)
[2017-11-25] MEDS: SODIUM CHLORIDE 0.9% FLUSH 10 ML FLUSH IV FLUSH SCH ×2 (08:25→23:21)
[2017-11-25] MEDS: MORPHINE SULFATE 4 MG/ML INJ IV PRN ×2 (08:30→18:37)
[2017-11-25 11:38] LABS: BICARBONATE 27.4 MEQ/L (21.0-32.0); CALCIUM 8.5 MG/DL (8.5-10.1); CREATININE 1.37 MG/DL (0.50-1.00); MAGNESIUM 2.1 MG/DL (1.5-2.5)
[2017-11-25 11:39] LABS: PHOSPHORUS 2.7 MG/DL (2.5-4.9)
[2017-11-25 13:20] LABS: HEMATOCRIT 32.5 % (35.0-46.0); HEMOGLOBIN 10.2 GM/DL (11.6-15.3); MEAN CELL VOLUME 81.6 FL (80.0-100.0); MEAN CORPUSCULAR HEMOGLOBIN 25.6 PG (27.0-34.0); MEAN CORPUSCULAR HGB CONC 31.4 % (32.0-36.0); MEAN PLATELET VOLUME 9.6 FL (7.0-11.0); PLATELET COUNT 229 TH/MM3 (150-450); RED BLOOD COUNT 3.98 MIL/MM3 (4.00-5.30); RED CELL DISTRIBUTION WIDTH 18.9 % (11.6-17.2); WHITE BLOOD COUNT 12.6 TH/MM3 (4.0-11.0)
--- NOTE | 2017-11-25 15:25 | HHI.PR ---
Subjective Remarks Patient again says she is feeling all right. Denies any chest pain or shortness of breath. She continues to report the bilateral lower extremities are uncomfortable. Objective Vital Signs Date Time Temp Pulse Resp B/P (MAP) Pulse Ox O2 Delivery O2 Flow Rate FiO2 11/25/17 14:00 84 11/25/17 12:00 98.4 85 18 134/63 (86) 98 11/25/17 12:00 18 11/25/17 10:00 80 11/25/17 08:40 19 11/25/17 08:00 98.2 105 18 130/71 (90) 98 11/25/17 08:00 98 Room Air 11/25/17 08:00 90 11/25/17 04:00 87 11/25/17 04:00 98.4 90 20 147/76 (99) 99 11/25/17 00:00 87 11/25/17 00:00 98.7 87 21 174/77 (109) 98 11/24/17 20:57 99 11/24/17 20:00 94 11/24/17 20:00 98.7 94 20 128/87 (101) 96 11/24/17 19:00 96 Room Air 11/24/17 18:00 94 11/24/17 16:00 98.5 94 22 139/73 (95) 99 11/24/17 16:00 94 I/O 11/24/17 11/24/17 11/24/17 11/25/17 11/25/17 11/25/17 06:59 14:59 22:59 06:59 14:59 22:59 Intake Total 1370 ml 1307 ml 819 ml Output Total 900 ml 2050 ml 1100 ml Balance 470 ml -743 ml -281 ml IV Total 455 ml Tube Feeding 1070 ml 452 ml 499 ml Tube Irrigant 400 ml Other 300 ml 320 ml Drainage Total 900 ml 2050 ml 1100 ml # Voids 1 # Bowel Movements 1 Result Diagram: 11/25/17 1303 11/25/17 1104 Objective Remarks GENERAL: Patient sitting up in bed. Appears comfortable. Talking today. SKIN: Warm and dry. HEAD: Normocephalic. EYES: No scleral icterus. No injection or drainage. NECK: Supple, trachea midline. No JVD. CARDIOVASCULAR: Regular rate and rhythm without murmurs, gallops, or rubs. RESPIRATORY: Breath sounds equal bilaterally. No accessory muscle use. GASTROINTESTINAL: Abdomen soft, non-tender, nondistended. PEG tube in place without any surrounding erythema. MUSCULOSKELETAL: No cyanosis. Patient with 2+ bilateral lower extremity anasarca. Nontender. Perfusion intact. BACK: Nontender without obvious deformity. No CVA tenderness. A/P Assessment and Plan =======11/25/17======== //ESBL E. coli UTI //Status post ureteral stent placement 11/21 //Acute kidney injury. -Creatinine 1.37 Improving = Nephrology, urology following. = White count up 12.6. No fevers however. Continue to monitor. Continue antibiotics and antifungals as per infectious disease. Appreciate assistance. Repeat urine cultures with Pippa. Patient continues on antifungals. //Accelerated hypertension with systolic blood pressures up to the 180s. continue hydralazine 100 mg 3 times daily. Discontinue amlodipine and increase isosorbide dose due to lower extremity edema. //Hypernatremia. Increase free water flushes.. Cussed with nursing again. Recheck tomorrow. //Bilateral lower extremity edema. BNP within normal limits. Likely secondary to recent amlodipine. Will discontinue amlodipine, plan to increase isosorbide dose tomorrow. 62-year-old white female admitted from a long-term facility for sepsis and acute hypoxic respiratory failure //Acute hypoxic hypercapnic respiratory failure secondary to aspiration Was intubated, currently satting well on 3L by NC Chest x-ray revealed bilateral lower lobe atelectasis. No focal infiltrates and /or effusions. However imaging might lag Duonebs every 6 hours with albuterol aerosols 2 hours as needed dyspnea GI: //Aspiration //Gastroesophageal reflux disease ///Sigmoid diverticulosis //Pancolitis //Internal and external hemorrhoids //Status post percutaneous and endoscopic gastrostomy tube placed 11/18 Currently on lansoprazole 30 mg by tube daily. On omeprazole 20 mg daily at home Docusate sodium 100 mg twice daily, senna 8.8 mg twice daily Initiate tube feeding daily via PEG tube with Glucerna 1.5 goal 50 cc an hour per nutrition recommendations Patient had sigmoidoscopy endoscopy 11/15 revealed sigmoid diverticulosis, pancolitis with internal and external hemorrhoids. CT abdomen/pelvis revealed descending colon wall thickening. Atherosclerotic vascular disease. Right hydronephrosis. Atrophic left kidney. Evaluated by general surgery/Dr. Guerrero that he is to be a surgical abdomen. Noted high velocities in SMA. Cannot anticoagulate due to history of bleeding Will do KUB 11/21 as noted with abdominal distention : Status post right nephrostomy tube Nephrolithiasis with right hydronephrosis Renal ultrasound revealed atrophic left kidney with right hydronephrosis with pigtail in place/nephrostomy tube Has decreased UOP urology consulted recommends IR for eval Endo: //Bipolar/schizophrenia //History of right MCA CVA with left-sided weakness //Chronic narcotic/opioid use with oxycodone/acetaminophen Continue Risperdal 0.5 mg by tube 3 times daily. Continue along with sertraline 50 mg p.o. daily Continue gabapentin 100 mg twice daily Avoid narcotics/sedating agents if possible //Essential hypertension //Hyperlipidemia //Coronary artery disease with stents to the RCA and LAD Continue aspirin 81 mg p.o. daily 2D echocardiogram 08/15 revealed EF 60-65%. No regional wall motion abnormality. Mild TR. Pulmonary arterial pressure 37 mmHg Continue metoprolol tartrate 25 mg p.o. twice daily. Hydralazine 50 3 times daily. As needed Nitropaste and nicardipine drip //Diabetes mellitus type 2 Holding insulin detemir 7 units at night. Sliding-scale insulin with Novolin R with Accu-Cheks every 6 hours to maintain euglycemia/low regimen Renal: //Acute kidney injury in the setting of chronic kidney disease stage III a //Right hydronephrosis status post right nephrostomy tube //Right nephrolithiasis Maintain nephrostomy tube Monitor urine output Accurate I's and O's A.m. BMP pending Heme: //Leukocytosis //Normocytic anemia Monitor CBC daily. Follow trends. No indication for transfusion of blood products at this time. Follow-up coags ID: Multidrug-resistant ESBL positive E. coli/multidrug-resistant Pseudomonas and Enterococcus faecalis UTI likely contaminant Currently of piperacillin/tazobactam and metronidazole IV. Blood cultures 2 on admission were no growth tod ate. Urine revealed ESBL positive E. coli. Repeat blood cultures 2, urine and sputum 11/16 with sputum not completed. FEN: //Hypernatremia We will place on half normal saline at 50 cc while currently n.p.o. MSK: //Well healed Sacral decubitus/heel ulcers Wound care evaluation and treat //Prophylaxis -GI -lansoprazole -DVT -SCD/holding pharmacological prophylaxis in light of history of hematuria on TSOAC Discharge Planning Candidate for hospice at long-term living facility. Palliative care is ff Patient is full code however Continues on IV antibiotics. We will need infectious disease clearance. Reed Taylor MD November 25, 2017 15:25
--- NOTE | 2017-11-25 16:17 | HHI.IDPN ---
Subjective Subjective Remarks is a 62 y/o CF with PMHx of prior Sepsis, CVA, retention of urine s/p Percutaneous Nephrostomy on right side, prior h/o Schizophrenia. Most of the history is by review of medical records. Patient presented to the ED on 2017 from her nursing facility with reports of gurgling respirations, tachypnea and O2 sats in the 50s. She apparently is a resident of [facility] due to CVA, sepsis. While in the ED there is reported temperature of 102.9. Strong urine odor was reported by EMS. In the ED, patient was noted to have WBC 18.2, H/H 7.7/24.9, lactic acid 0.9. BUN 61/creatinine 3.97, GFR 11. Sepsis workup initiated. CXR with no acute process. CT A/P with wall thickening noted. Extensive atherosclerosis noted concerning for infarct. Right side Percutaneous Nephrostomy with multiple renal stones. Patient was transfused 2 units packed cells for acute anemia. General surgery was consulted due to CT abdomen findings. Patient with colitis most notable at hepatic flexure. GI consulted and patient was started on empiric Zosyn, and Flagyl. Patient underwent EGD and Colonoscopy. Colonic path with focal colitis. UA done on admission and repeated thereafter is positive for MDR PSAE and C.albicans. Cath specimens appear to be collected from nephrostomy tubes as there is not much output from the PC Nephrostomy tubes. WBC continues to be elevated. Notes reviewed D/W RN Afebrile BP ok C/O pain Had placement of new stent R 11/21 Cultures reviewed Creatinine slightly better Antibiotics Zerbaxa Diflucan Lines PIV Past Medical History Reviewed Allergies: Coded Allergies: *MDRO Multi-Drug Resistant Organism (Verified Adverse Reaction, Unknown, ) 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 ESBL + E. 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 Vital Signs Date Time Temp Pulse Resp B/P (MAP) Pulse Ox O2 Delivery O2 Flow Rate FiO2 11/25/17 14:00 84 11/25/17 12:00 98.4 85 18 134/63 (86) 98 11/25/17 12:00 18 11/25/17 10:00 80 11/25/17 08:40 19 11/25/17 08:00 98.2 105 18 130/71 (90) 98 11/25/17 08:00 98 Room Air 11/25/17 08:00 90 11/25/17 04:00 87 11/25/17 04:00 98.4 90 20 147/76 (99) 99 11/25/17 00:00 87 11/25/17 00:00 98.7 87 21 174/77 (109) 98 11/24/17 20:57 99 11/24/17 20:00 94 11/24/17 20:00 98.7 94 20 128/87 (101) 96 11/24/17 19:00 96 Room Air 11/24/17 18:00 94 . Laboratory Tests Test 11/24/17 03:55 11/25/17 13:03 White Blood Count 11.8 TH/MM3 12.6 TH/MM3 Red Blood Count 3.76 MIL/MM3 3.98 MIL/MM3 Hemoglobin 9.7 GM/DL 10.2 GM/DL Hematocrit 30.8 % 32.5 % Mean Corpuscular Volume 82.0 FL 81.6 FL Mean Corpuscular Hemoglobin 25.8 PG 25.6 PG Mean Corpuscular Hemoglobin Concent 31.5 % 31.4 % Red Cell Distribution Width 18.8 % 18.9 % Platelet Count 249 TH/MM3 229 TH/MM3 Mean Platelet Volume 10.2 FL 9.6 FL Neutrophils (%) (Auto) 79.1 % Lymphocytes (%) (Auto) 12.2 % Monocytes (%) (Auto) 4.8 % Eosinophils (%) (Auto) 3.3 % Basophils (%) (Auto) 0.6 % Neutrophils # (Auto) 9.3 TH/MM3 Lymphocytes # (Auto) 1.4 TH/MM3 Monocytes # (Auto) 0.6 TH/MM3 Eosinophils # (Auto) 0.4 TH/MM3 Basophils # (Auto) 0.1 TH/MM3 CBC Comment AUTO DIFF Differential Comment AUTO DIFF CONFIRMED Platelet Estimate NORMAL Platelet Morphology Comment NORMAL Red Cell Morphology Comment NORMAL Laboratory Tests Test 11/24/17 03:55 11/25/17 11:04 Blood Urea Nitrogen 24 MG/DL 24 MG/DL Creatinine 1.37 MG/DL 1.37 MG/DL Random Glucose 177 MG/DL 250 MG/DL Albumin 2.6 GM/DL Calcium Level 8.3 MG/DL 8.5 MG/DL Phosphorus Level 1.8 MG/DL 2.7 MG/DL Magnesium Level 2.1 MG/DL 2.1 MG/DL Sodium Level 148 MEQ/L 147 MEQ/L Potassium Level 3.8 MEQ/L 4.6 MEQ/L Chloride Level 114 MEQ/L 114 MEQ/L Carbon Dioxide Level 24.1 MEQ/L 27.4 MEQ/L Anion Gap 10 MEQ/L 6 MEQ/L Estimat Glomerular Filtration Rate 39 ML/MIN 39 ML/MIN B-Type Natriuretic Peptide 53 PG/ML Microbiology Date/Time Source Procedure Growth Status 11/23/17 16:20 Urine Other Urine Culture - Final Pippa Albicans Complete Imaging Last Impressions Drainage Catheter Insertion 11/21/17 0000 Signed Impressions: CONCLUSION: 1. Uncomplicated nephroureteral stent placement as above. Approximately 200 cc of purulent appearing urine was immediately removed from the renal collecting system. Sample was collected for Gram stain and C&S. Findings were also discussed with Dr. Ascencio. Ideally, would need to remove the e xisting ureteral stent given concern for colonization. However, there are signi ficant calcifications along the proximal and distal portions of the stent and t he stent is likely adhered. This along with inferior pole calyx access will juani e antegrade retrieval attempt very challenging and likely not possible. Abdomen X-Ray 11/21/17 0000 Signed Impressions: CONCLUSION: Benign-appearing abdomen. Chest X-Ray 11/19/17 0600 Signed Impressions: Service Date/Time: Sunday, November 19, 2017 03:07 - CONCLUSION: 1. Interval removal of nasogastric tube. 2. The lungs remain clear. Rosales Jay MD Lower Extremity Ultrasound 11/16/17 0000 Signed Impressions: Service Date/Time: Thursday, November 16, 2017 08:49 - CONCLUSION: No evidence of deep venous thrombosis in either lower extremity. Chetan Beltre MD Abdomen Ultrasound 11/14/17 0000 Signed Impressions: Service Date/Time: October 07:56 - CONCLUSION: 1. There is elevated velocity within the proximal SMA which raises the possibility of a focal stenosis. 2. The vessels imaged and appear to be patent. Yo Joiner MD Abdomen/Pelvis CT 11/10/17 0601 Signed Impressions: Service Date/Time: Friday, November 10, 2017 07:44 - CONCLUSION: 1.Focal abnormal circumferential wall thickening involving the descending colon at the level of the hepatic flexure with significant adjacent fluid tracking within the right paracardiac color. Given the extensive atherosclerosis and focal finding concern is for possible infarct. Infection is also within the differential diagnosis. 2. Interval placement of a right-sided percutaneous nephrostomy tube. Stable appearance of the right kidney with multiple renal stones. Josefa Hair MD Head CT 11/10/17 0000 Signed Impressions: Service Date/Time: Friday, November 10, 2017 11:22 - CONCLUSION: Stable exam. No acute abnormality.. Josefa Hair MD Physical Exam GENERAL: Awake and alert, has dysarthria, NAD. SKIN: No rashes, ecchymoses or lesions. Cool and dry. HEAD: Atraumatic. Normocephalic. No temporal or scalp tenderness. EYES: Pupils equal round and reactive. . No scleral icterus. No injection or drainage. ENT: Nose without bleeding, purulent drainage or septal hematoma. Moist mucosa NECK: Trachea midline. No JVD or lymphadenopathy. Supple, nontender, no meningeal signs. CARDIOVASCULAR: Regular rate and rhythm without murmurs, gallops, or rubs. RESPIRATORY: Clear to auscultation. Breath sounds equal bilaterally. No wheezes , rales, or rhonchi. Decreased BS at bases GASTROINTESTINAL: Abdomen soft, mildly distended, PEG site ok, has diffuse tenderness, no guarding or rebound. Cath on back R with clear urine MUSCULOSKELETAL: Bilateral pedal edema. NEUROLOGICAL: Awake and alert. Decreased nasolabial fold on R. Weak on L with contractures. Both feet plantar flexed. Has dysarthria Psych: Calm and cooperative. IV line sites with no e.o infection. Assessment & Plan Remarks Assessment and Plan MDR PSAE complicated UTI C.albicans UTI Both grew from nephrostomy tubes. Currently not on steroids and WBC increasing. Rt nephrostomy tube in place. Pain bilateral LE: no DVT on doppler. ? Neuropathy Recs Continue Zerbaxa IV Continue Diflucan IV Follow new cultures Monitor progress D/W Teagan Dwyer MD November 25, 2017 16:17
[2017-11-25] MEDS: ATORVASTATIN 40 MG TAB PO SCH (20:37)
[2017-11-25] MEDS: FLUCONAZOLE 100 MG PREMIX BAG 50 ML IV SCH (23:11)
[2017-11-26] VITALS (11 sets, daily range): BP systolic 122–165; BP diastolic 60–90; PULSE 81–102; RESP 12–22; TEMP 97.9–98.6; O2SAT 96–100
[2017-11-26] MEDS: metroNIDAZOLE 500 MG INJ 100 ML IV SCH ×4 (00:41→18:41)
[2017-11-26] MEDS: INSULIN NovoLIN REGULAR SUPPLEMENTAL SCALE SQ SCH ×3 (00:41→12:53)
[2017-11-26] MEDS: FREE WATER G-TUBE SCH ×5 (04:00→15:43)
[2017-11-26] MEDS: ISOSORBIDE DINITRATE 10 MG TAB PO SCH (05:20)
[2017-11-26] MEDS: hydrALAZINE HCL 25 MG TAB G-TUBE SCH ×3 (05:20→22:00)
[2017-11-26] MEDS: ISOSORBIDE DINITRATE 40 MG PO SCH ×2 (08:00→12:56)
[2017-11-26] MEDS: NS IV SCH ×4 (08:05→15:42)
[2017-11-26] MEDS: CHLORHEXIDINE 0.12% (ORAL KIT) 15 ML CUP MT SCH ×2 (08:05→20:00)
[2017-11-26] MEDS: CEFTOLOZANE TAZOBACTAM IV SCH ×4 (08:05→15:42)
[2017-11-26] MEDS: SERTRALINE HCL 50 MG TAB PO SCH (08:06)
[2017-11-26] MEDS: DOCUSATE SODIUM 100 MG/10 ML UDC PO SCH ×2 (08:06→21:59)
[2017-11-26] MEDS: LACTULOSE SYRUP 20 GM/30 ML CUP PO SCH (08:06)
[2017-11-26] MEDS: LANSOPRAZOLE SOLUTAB 30 MG TAB NG SCH (08:06)
[2017-11-26] MEDS: GABAPENTIN 100 MG CAP PO SCH ×2 (08:06→22:01)
[2017-11-26] MEDS: METOPROLOL TARTRATE 25 MG TAB PO SCH ×2 (08:07→21:00)
[2017-11-26] MEDS: SODIUM CHLORIDE 0.9% FLUSH 10 ML FLUSH IV FLUSH SCH ×2 (08:07→22:07)
[2017-11-26] MEDS: POLYETHYLENE GLYCOL 17 GM PKG PO SCH (08:07)
[2017-11-26] MEDS: ASPIRIN 81 MG CHEW TAB CHEW SCH (08:07)
[2017-11-26] MEDS: MUPIROCIN 2% OINT 1 APPLIC/GM SYR EACH NARE SCH ×2 (08:08→22:00)
[2017-11-26] MEDS: SENNOSIDES SYRUP 8.8 MG/5 ML CUP PO SCH ×2 (08:08→21:59)
[2017-11-26] MEDS: risperiDONE 0.5 MG TAB PO SCH ×3 (08:10→18:41)
[2017-11-26] MEDS: ARTIFICIAL TEARS OPTH SOLN 15 ML BTL EACH EYE SCH ×2 (08:10→22:00)
[2017-11-26] MEDS: MORPHINE SULFATE 4 MG/ML INJ IV PRN (13:02)
[2017-11-26] MEDS ORDERED: ISOSORBIDE DINITRATE 20 MG TAB PO ONE (14:45)
[2017-11-26] MEDS ORDERED: DEXTROSE 50% IN WATER 50 ML SYRINGE IV PUSH PRN (16:30)
[2017-11-26] MEDS ORDERED: GLUCAGON 1 MG/ML VIAL OTHER PRN (16:30)
--- NOTE | 2017-11-26 16:33 | HHI.PR ---
Subjective Remarks Patient seen this afternoon around 3 PM. The case that she is feeling all right. Appears to deny pain. Objective Vital Signs Date Time Temp Pulse Resp B/P (MAP) Pulse Ox O2 Delivery O2 Flow Rate FiO2 11/26/17 14:00 89 11/26/17 13:07 17 11/26/17 12:00 100 Room Air 11/26/17 12:00 98.2 84 22 143/73 (96) 100 11/26/17 12:00 84 11/26/17 08:00 98.6 81 16 146/73 (97) 96 11/26/17 08:00 81 11/26/17 07:00 96 Room Air 11/26/17 04:00 97.9 81 19 140/67 (91) 97 11/26/17 04:00 81 11/26/17 02:00 86 11/26/17 00:00 84 11/26/17 00:00 98.2 84 12 122/60 (80) 98 11/25/17 22:00 87 11/25/17 20:00 98.5 96 20 162/85 (110) 98 11/25/17 20:00 Room Air 11/25/17 20:00 94 11/25/17 19:08 97 21 11/25/17 18:00 94 I/O 11/25/17 11/25/17 11/25/17 11/26/17 11/26/17 11/26/17 06:59 14:59 22:59 06:59 14:59 22:59 Intake Total 819 ml 934 ml 767 ml 100 ml Output Total 1100 ml 1800 ml 850 ml 850 ml Balance -281 ml -866 ml -83 ml -750 ml IV Total 100 ml Tube Feeding 499 ml 534 ml 497 ml Other 320 ml 400 ml 270 ml Output Urine Total 850 ml Drainage Total 1100 ml 1800 ml 850 ml Bladder Scan Volume Amount 0 ml # Voids 3 2 # Bowel Movements 1 1 Result Diagram: 11/25/17 1303 11/25/17 1104 Objective Remarks GENERAL: Patient sitting up in bed. Appears comfortable. Talking,, however very limited speech as yesterday. SKIN: Warm and dry. HEAD: Normocephalic. EYES: No scleral icterus. No injection or drainage. NECK: Supple, trachea midline. No JVD. CARDIOVASCULAR: Regular rate and rhythm without murmurs, gallops, or rubs. RESPIRATORY: Breath sounds equal bilaterally. No accessory muscle use. GASTROINTESTINAL: Abdomen soft, non-tender, nondistended. PEG tube in place without any surrounding erythema. MUSCULOSKELETAL: No cyanosis. Patient with 2+ bilateral lower extremity anasarca, somewhat improved today.. Nontender. Perfusion intact. Patient with 2 x 2 centimeter black pressure ulcer over left elbow. BACK: Nontender without obvious deformity. No CVA tenderness. A/P Assessment and Plan =======11/26/17======== //ESBL E. coli UTI //Status post ureteral stent placement 11/21 //Acute kidney injury. //Complex UTI -Creatinine 1.37 Improving = ID urology following. = White count up 12.6. No fevers however. Continue to monitor. Continue antibiotics and antifungals as per infectious disease. Appreciate assistance. Repeat urine cultures with Pippa. Patient continues on antifungals. //Accelerated hypertension with systolic blood pressures up to the 180s. continue hydralazine 100 mg 3 times daily. Discontinue amlodipine and increase isosorbide dose due to lower extremity edema. = Due to bilateral lower extremity swelling, having gone off amlodipine, will start on isosorbide schedule III times daily. //Hypernatremia. Increase free water flushes. Recheck tomorrow. //Bilateral lower extremity edema. BNP within normal limits. Appears to be slightly improved today. Monitor off of amlodipine. //Pressure ulcer left elbow. Consult wound care. 62-year-old white female admitted from a long-term facility for sepsis and acute hypoxic respiratory failure //Acute hypoxic hypercapnic respiratory failure secondary to aspiration Was intubated, currently satting well on 3L by NC Chest x-ray revealed bilateral lower lobe atelectasis. No focal infiltrates and /or effusions. However imaging might lag Duonebs every 6 hours with albuterol aerosols 2 hours as needed dyspnea GI: //Aspiration //Gastroesophageal reflux disease ///Sigmoid diverticulosis //Pancolitis //Internal and external hemorrhoids //Status post percutaneous and endoscopic gastrostomy tube placed 11/18 Currently on lansoprazole 30 mg by tube daily. On omeprazole 20 mg daily at home Docusate sodium 100 mg twice daily, senna 8.8 mg twice daily Initiate tube feeding daily via PEG tube with Glucerna 1.5 goal 50 cc an hour per nutrition recommendations Patient had sigmoidoscopy endoscopy 11/15 revealed sigmoid diverticulosis, pancolitis with internal and external hemorrhoids. CT abdomen/pelvis revealed descending colon wall thickening. Atherosclerotic vascular disease. Right hydronephrosis. Atrophic left kidney. Evaluated by general surgery/Dr. Guerrero that he is to be a surgical abdomen. Noted high velocities in SMA. Cannot anticoagulate due to history of bleeding Will do KUB 11/21 as noted with abdominal distention : Status post right nephrostomy tube Nephrolithiasis with right hydronephrosis Renal ultrasound revealed atrophic left kidney with right hydronephrosis with pigtail in place/nephrostomy tube Has decreased UOP urology consulted recommends IR for eval Endo: //Bipolar/schizophrenia //History of right MCA CVA with left-sided weakness //Chronic narcotic/opioid use with oxycodone/acetaminophen Continue Risperdal 0.5 mg by tube 3 times daily. Continue along with sertraline 50 mg p.o. daily Continue gabapentin 100 mg twice daily Avoid narcotics/sedating agents if possible //Essential hypertension //Hyperlipidemia //Coronary artery disease with stents to the RCA and LAD Continue aspirin 81 mg p.o. daily 2D echocardiogram 08/15 revealed EF 60-65%. No regional wall motion abnormality. Mild TR. Pulmonary arterial pressure 37 mmHg Continue metoprolol tartrate 25 mg p.o. twice daily. Hydralazine 50 3 times daily. As needed Nitropaste and nicardipine drip //Diabetes mellitus type 2 Holding insulin detemir 7 units at night. Sliding-scale insulin with Novolin R with Accu-Cheks every 6 hours to maintain euglycemia/low regimen Renal: //Acute kidney injury in the setting of chronic kidney disease stage III a //Right hydronephrosis status post right nephrostomy tube //Right nephrolithiasis Maintain nephrostomy tube Monitor urine output Accurate I's and O's A.m. BMP pending Heme: //Leukocytosis //Normocytic anemia Monitor CBC daily. Follow trends. No indication for transfusion of blood products at this time. Follow-up coags ID: Multidrug-resistant ESBL positive E. coli/multidrug-resistant Pseudomonas and Enterococcus faecalis UTI likely contaminant Currently of piperacillin/tazobactam and metronidazole IV. Blood cultures 2 on admission were no growth tod ate. Urine revealed ESBL positive E. coli. Repeat blood cultures 2, urine and sputum 11/16 with sputum not completed. FEN: //Hypernatremia We will place on half normal saline at 50 cc while currently n.p.o. MSK: //Well healed Sacral decubitus/heel ulcers Wound care evaluation and treat //Prophylaxis -GI -lansoprazole -DVT -SCD/holding pharmacological prophylaxis in light of history of hematuria on TSOAC Discharge Planning Candidate for hospice at long-term living facility. Palliative care is ff Patient is full code however Continues on IV antibiotics. We will need infectious disease clearance. Reed Taylor MD November 26, 2017 16:33
[2017-11-26] MEDS: INSULIN ASPART SUPPLEMENTAL SCALE SQ SCH (18:42)
[2017-11-26] MEDS: ISOSORBIDE DINITRATE 20 MG TAB PO SCH (22:01)
[2017-11-26] MEDS: ATORVASTATIN 40 MG TAB PO SCH (22:01)
[2017-11-27] VITALS (8 sets, daily range): BP systolic 112–159; BP diastolic 67–80; PULSE 74–109; RESP 17–20; TEMP 97.9–98.5; O2SAT 94–98
[2017-11-27] MEDS: CEFTOLOZANE TAZOBACTAM IV SCH ×6 (00:04→16:24)
[2017-11-27] MEDS: FLUCONAZOLE 100 MG PREMIX BAG 50 ML IV SCH ×2 (00:04→22:51)
[2017-11-27] MEDS: NS IV SCH ×6 (00:04→16:24)
[2017-11-27] MEDS: metroNIDAZOLE 500 MG INJ 100 ML IV SCH ×3 (00:22→12:55)
[2017-11-27] MEDS: FREE WATER G-TUBE SCH ×6 (04:00→20:00)
[2017-11-27] MEDS: hydrALAZINE HCL 25 MG TAB G-TUBE SCH ×3 (05:32→22:52)
[2017-11-27] MEDS: ISOSORBIDE DINITRATE 20 MG TAB PO SCH ×3 (05:32→22:52)
[2017-11-27 05:47] LABS: ALKALINE PHOSPHATASE 110 U/L (45-117); PHOSPHORUS 2.4 MG/DL (2.5-4.9); TOTAL BILIRUBIN ADULT 0.2 MG/DL (0.2-1.0); TOTAL PROTEIN 6.6 GM/DL (6.4-8.2)
[2017-11-27 05:54] LABS: ALBUMIN 2.3 GM/DL (3.4-5.0); ALT (GPT) 10 U/L (10-53); AST (GOT) 16 U/L (15-37); BICARBONATE 23.8 MEQ/L (21.0-32.0); BLOOD UREA NITROGEN 25 MG/DL (7-18); CALCIUM 8.5 MG/DL (8.5-10.1); CHLORIDE 113 MEQ/L (98-107); CREATININE 1.38 MG/DL (0.50-1.00); GLOMERULAR FILTRATION RATE 39 ML/MIN (>89); GLUCOSE,RANDOM 212 MG/DL (74-106); SODIUM (NA) 148 MEQ/L (136-145)
[2017-11-27 05:58] LABS: AUTOMATED NEUTROPHIL # 6.6 TH/MM3 (1.8-7.7); BASOPHIL # 0.1 TH/MM3 (0-0.2); BASOPHIL % 1.2 % (0.0-2.0); EOSINOPHIL # 0.3 TH/MM3 (0-0.4); EOSINOPHIL % 3.5 % (0.0-4.0); HEMATOCRIT 27.5 % (35.0-46.0); HEMOGLOBIN 8.6 GM/DL (11.6-15.3); LYMPH % 16.7 % (9.0-44.0); LYMPHOCYTE # 1.5 TH/MM3 (1.0-4.8); MEAN CELL VOLUME 81.2 FL (80.0-100.0); MEAN CORPUSCULAR HEMOGLOBIN 25.5 PG (27.0-34.0); MEAN CORPUSCULAR HGB CONC 31.4 % (32.0-36.0); MEAN PLATELET VOLUME 9.6 FL (7.0-11.0); MONO % 5.9 % (0.0-8.0); MONOCYTE # 0.5 TH/MM3 (0-0.9); NEUT % 72.7 % (16.0-70.0); PLATELET COUNT 255 TH/MM3 (150-450); RED BLOOD COUNT 3.38 MIL/MM3 (4.00-5.30)
[2017-11-27] MEDS: INSULIN ASPART SUPPLEMENTAL SCALE SQ SCH ×4 (05:59→17:12)
[2017-11-27] MEDS: CHLORHEXIDINE 0.12% (ORAL KIT) 15 ML CUP MT SCH ×2 (08:00→20:00)
[2017-11-27] MEDS: METOPROLOL TARTRATE 25 MG TAB PO SCH ×2 (08:02→20:18)
[2017-11-27] MEDS: risperiDONE 0.5 MG TAB PO SCH ×3 (08:02→17:11)
[2017-11-27] MEDS: GABAPENTIN 100 MG CAP PO SCH ×2 (08:02→20:18)
[2017-11-27] MEDS: POLYETHYLENE GLYCOL 17 GM PKG PO SCH (08:03)
[2017-11-27] MEDS: LACTULOSE SYRUP 20 GM/30 ML CUP PO SCH (08:03)
[2017-11-27] MEDS: SODIUM CHLORIDE 0.9% FLUSH 10 ML FLUSH IV FLUSH SCH ×2 (08:03→20:18)
[2017-11-27] MEDS: SERTRALINE HCL 50 MG TAB PO SCH (08:03)
[2017-11-27] MEDS: DOCUSATE SODIUM 100 MG/10 ML UDC PO SCH ×2 (08:03→20:19)
[2017-11-27] MEDS: MUPIROCIN 2% OINT 1 APPLIC/GM SYR EACH NARE SCH ×2 (08:03→20:17)
[2017-11-27] MEDS: LANSOPRAZOLE SOLUTAB 30 MG TAB NG SCH (08:03)
[2017-11-27] MEDS: ASPIRIN 81 MG CHEW TAB CHEW SCH (08:03)
[2017-11-27] MEDS: SENNOSIDES SYRUP 8.8 MG/5 ML CUP PO SCH ×2 (08:03→20:17)
[2017-11-27] MEDS: ARTIFICIAL TEARS OPTH SOLN 15 ML BTL EACH EYE SCH ×2 (08:04→20:17)
--- NOTE | 2017-11-27 11:21 | PD.WCN.NOT ---
Wound Consult Description: Consult received from Doctor Taylor for L elbow pressure ulcer. Communicated with: FARNAZ Easley [facility] and Doctor Taylor Recommendation: Please cleanse wound to L inner elbow with NORMAL SALINE ONLY , no wound cleanser with Santyl. Apply Santyl in jose miguel thick coverage to L inner elbow wound and cover with optifoam gentle 4x4 dressing available through misogram. Please apply skin barrier film to periwound before applying adhesive foam dressing. Change dressing daily. Additional Information: Patient seen on [address] [place] [address] for evaluation of L elbow pressure ulcer. Patient assessed with Kaushal.Removed hydrocolloid dressing in place to reveal open wound to L inner elbow.Patient L elbow is contracted and is pressing in on patinet's L side. Wound presents with oval shape and appears to be pressure related. Wound measures ~2.5cm x ~2cm x eschar/slough.Wound presents with ~80% eschar that is thin and soft and ~20% yellow adherent slough. Periwound is unremarkable without erythema , odor,or induration. Wound drainage is minimal and yellow/serous without odor. Cleansed wound with wound cleanser and pat dry. Applied optifoam gentle 4x4 over wound. Patient will need small pillow to relieve pressure from this area. Wound cleanser was used for this assessment, but is not recommended with the use of Santyl. Please change dressing as recommended above. Isabelle Wilson [facility] November 27, 2017 11:21
--- NOTE | 2017-11-27 13:14 | RADRPT ---
EXAM DATE: 11/27/2017 12:52 PM EDT AGE/SEX: 62 years / Female INDICATIONS: Right arm edema. CLINICAL DATA: This is the patient's initial encounter. Patient reports that signs and symptoms have been present for 1 day and indicates a pain score of Nonresponsive. MEDICAL/SURGICAL HISTORY: Hypertension. Arthritis. CVA. Left side deficit. Confusion. AFib. Co ronary artery disease. Tachycardia. Hydronephrosis. Anemia. MRSA. VRE. ESBL. Schizophrenia. Bipolar d isorder. Depression. Anxiety. Tonsillectomy. Coronary artery stent. Hysterectomy. Oral extraction . Cardiac cath. section. Repair fracture left hip. COMPARISON: No prior [facility] exams available for comparison. No external comparison. FINDINGS: There is thrombus noted in the radial vein in the upper forearm. There is spontaneous flow documented in the brachial, basilic, cephalic, axillary, and subclavian veins. The vessels are compressible an d augmentation response is documented. No filling defects are seen. The flow is phasic with respira tion. Direction of flow in the jugular vein is caudal. CONCLUSION: 1. 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 Electronically signed by: Jadon Canales MD 11/27/2017 1:13 PM EDT
--- NOTE | 2017-11-27 14:11 | HHI.IDPN ---
Subjective Subjective Remarks Patient seen and examined on behalf of Dr. 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 Most of the history is by review of medical records. Patient presented to the ED on 2017 from her nursing facility with reports of gurgling respirations, tachypnea and O2 sats in the 50s. She apparently is a resident of [facility] due to CVA, sepsis. While in the ED there is reported temperature of 102.9. Strong urine odor was reported by EMS. In the ED, patient was noted to have WBC 18.2, H/H 7.7/24.9, lactic acid 0.9. BUN 61/creatinine 3.97, GFR 11. Sepsis workup initiated. CXR with no acute process. CT A/P with wall thickening noted. Extensive atherosclerosis noted concerning for infarct. Right side Percutaneous Nephrostomy with multiple renal stones. Patient was transfused 2 units packed cells for acute anemia. General surgery was consulted due to CT abdomen findings. Patient with colitis most notable at hepatic flexure. GI consulted and patient was started on empiric Zosyn, and Flagyl. Patient underwent EGD and Colonoscopy. Colonic path with focal colitis. UA done on admission and repeated thereafter is positive for MDR PSAE and C.albicans. Cath specimens appear to be collected from nephrostomy tubes as there is not much output from the PC Nephrostomy tubes. WBC continues to be elevated. Notes reviewed Dw nursing staff, no acute issues noted. No diarrhea. Good UOP. patient states she is ok afebrile RUE significantly edematous and erythematous Had placement of new stent R 11/21 WBC WNL Creatinine appears stable Repeat UCX C.Albicans BCX no growth x 5 days Doppler RUE + DVT Antibiotics IV Flagyl IV Zerbaxa IV Diflucan Current Medications Medications (Trade) Dose Ordered Sig/Sukhi Route Start Time Stop Time Status Last Admin (NS Flush) 2 ml UNSCH PRN IV FLUSH 11/10/17 11:15 (NS Flush) 2 ml BID IV FLUSH 11/10/17 21:00 11/27/17 08:03 (Zofran Odt) 4 mg Q6H PRN PO 11/10/17 11:15 (Narcan Inj) 0.4 mg UNSCH PRN IV PUSH 11/10/17 11:15 (Benadryl) 25 mg Q4H PRN PO 11/10/17 11:45 Metronidazole 100 ml @ 100 mls/hr Q6H IV 11/10/17 13:00 11/27/17 12:55 (Morphine Inj) 2 mg Q4H PRN IV 11/11/17 18:30 11/26/17 13:02 (Neurontin) 100 mg BID PO 11/11/17 21:00 11/27/17 08:02 (Lopressor) 25 mg BID PO 11/11/17 21:00 11/27/17 08:02 (risperDAL) 0.5 mg TID PO 11/12/17 09:00 11/27/17 12:55 (Zoloft) 50 mg DAILY PO 11/12/17 09:00 11/27/17 08:03 (Lipitor) 40 mg HS PO 11/11/17 21:00 11/26/17 22:01 (Bactroban Nasal 2% Oint) Taper BID EACH NARE 11/16/17 09:00 11/12/18 08:59 11/27/17 08:03 (Prevacid Odt) 30 mg DAILY NG 11/16/17 09:00 11/27/17 08:03 (Albuterol Neb) 2.5 mg Q2HR NEB PRN NEB 11/16/17 07:45 (Colace Liq) 100 mg Q12HR PO 11/16/17 09:00 11/26/17 21:59 (Senna Liq) 8.8 mg Q12HR PO 11/16/17 09:00 11/26/17 21:59 (Miralax) 17 gm DAILY PO 11/16/17 09:00 11/26/17 08:07 (Lactulose Liq) 30 ml DAILY PO 11/16/17 09:00 11/26/17 08:06 (Tears Naturale Opth Soln) 1 drop BID EACH EYE 11/16/17 09:00 11/27/17 08:04 (Nitroglycerin 2% Oint) 2 inch Q6HR PRN TOPICAL 11/16/17 10:00 11/20/17 11:15 (Peridex 0.12% Liq) 15 ml BID@08,20 MT 11/16/17 20:00 11/27/17 08:00 Potassium Chloride 100 ml @ 50 mls/hr Q2H PRN IV 11/17/17 15:15 Potassium Chloride 100 ml @ 50 mls/hr Q2H PRN IV 11/17/17 15:15 (K-Lyte Cl Eff) 50 meq UNSCH PRN PO 11/17/17 15:15 11/19/17 07:35 Potassium Chloride 100 ml @ 25 mls/hr UNSCH PRN IV 11/17/17 15:15 Potassium Chloride 100 ml @ 50 mls/hr Q2H PRN IV 11/17/17 15:15 11/21/17 10:43 Magnesium Sulfate 4 gm/Sodium Chloride 100 ml @ 50 mls/hr UNSCH PRN IV 11/17/17 15:15 (Mag-Ox) 800 mg UNSCH PRN PO 11/17/17 15:15 Magnesium Sulfate 2 gm/Sodium Chloride 100 ml @ 50 mls/hr UNSCH PRN IV 11/17/17 15:15 (K-Phos) 2,000 mg Q4H PRN PO 11/17/17 15:15 Sodium Phosphate 30 mmol/Sodium Chloride 250 ml @ 42 mls/hr UNSCH PRN IV 11/17/17 15:15 (K-Phos) 2,000 mg UNSCH PRN PO/TUBE 11/17/17 15:15 Potassium Phosphate 30 mmol/ Sodium Chloride 260 ml @ 42 mls/hr UNSCH PRN IV 11/17/17 15:15 11/18/17 06:16 (Aspirin Chew) 81 mg DAILY CHEW 11/19/17 09:00 11/27/17 08:03 Nicardipine HCl 25 mg/Sodium Chloride 260 ml @ 52 mls/hr TITRATE PRN IV 11/18/17 14:30 11/24/17 10:34 (Tylenol 650 Mg/ 20 ml Liq) 650 mg Q6H PRN PO 11/20/17 09:15 (Apresoline Inj) 20 mg Q4H PRN IV PUSH 11/21/17 12:00 (Trandate Inj) 10 mg Q4H PRN IV PUSH 11/21/17 12:00 11/23/17 06:06 Fluconazole/ Sodium Chloride 50 ml @ 50 mls/hr Q24H IV 11/22/17 23:00 11/27/17 00:04 Ceftolozane/ Tazobactam 750 mg/ Sodium Chloride 100 ml @ 100 mls/hr Q8H IV 11/23/17 00:00 11/27/17 08:02 (Apresoline) 100 mg Q8HR G-TUBE 11/23/17 22:00 11/27/17 12:55 (Isordil) 20 mg Q8HR PO 11/26/17 22:00 11/27/17 12:55 (NovoLOG SUPPLEMENTAL SCALE) 1 Q6HR SQ 11/26/17 18:00 11/27/17 12:50 (D50w (Syr) Inj) 50 ml UNSCH PRN IV PUSH 11/26/17 16:30 (Glucagon Inj) 1 mg UNSCH PRN OTHER 11/26/17 16:30 (Free Water) 180 ml Q4HR G-TUBE 11/27/17 08:00 11/27/17 12:00 Lines PIV with no e/o infection Past Medical History Reviewed (Eli Rolon) Allergies: Coded Allergies: *MDRO Multi-Drug Resistant Organism (Verified Adverse Reaction, Unknown, ) 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 ESBL + E. 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 Vital Signs Date Time Temp Pulse Resp B/P (MAP) Pulse Ox O2 Delivery O2 Flow Rate FiO2 11/27/17 12:00 74 11/27/17 12:00 98.5 76 18 141/73 (95) 98 11/27/17 10:00 79 11/27/17 10:00 98.4 84 18 112/71 (85) 97 11/27/17 08:00 84 11/27/17 08:00 98.4 84 18 112/71 (85) 97 11/27/17 07:00 97 Room Air 11/27/17 04:00 90 11/27/17 04:00 98.5 90 17 146/76 (99) 96 11/27/17 00:00 98.2 109 20 146/67 (93) 94 11/27/17 00:00 109 11/26/17 20:12 98 21 11/26/17 20:00 102 11/26/17 20:00 98.2 102 17 165/90 (115) 97 11/26/17 19:00 98 Room Air 11/26/17 18:00 97 11/26/17 16:00 94 11/26/17 16:00 98.5 94 16 144/63 (90) 98 11/27/17 11/27/17 11/28/17 15:00 23:00 07:00 Output Total 0 ml Balance 0 ml Tube Feeding Residual Discard 0 ml . Laboratory Tests Test 11/27/17 05:48 White Blood Count 9.0 TH/MM3 Red Blood Count 3.38 MIL/MM3 Hemoglobin 8.6 GM/DL Hematocrit 27.5 % Mean Corpuscular Volume 81.2 FL Mean Corpuscular Hemoglobin 25.5 PG Mean Corpuscular Hemoglobin Concent 31.4 % Red Cell Distribution Width 20.0 % Platelet Count 255 TH/MM3 Mean Platelet Volume 9.6 FL Neutrophils (%) (Auto) 72.7 % Lymphocytes (%) (Auto) 16.7 % Monocytes (%) (Auto) 5.9 % Eosinophils (%) (Auto) 3.5 % Basophils (%) (Auto) 1.2 % Neutrophils # (Auto) 6.6 TH/MM3 Lymphocytes # (Auto) 1.5 TH/MM3 Monocytes # (Auto) 0.5 TH/MM3 Eosinophils # (Auto) 0.3 TH/MM3 Basophils # (Auto) 0.1 TH/MM3 CBC Comment DIFF FINAL Differential Comment Laboratory Tests Test 11/27/17 04:50 Blood Urea Nitrogen 25 MG/DL Creatinine 1.38 MG/DL Random Glucose 212 MG/DL Total Protein 6.6 GM/DL Albumin 2.3 GM/DL Calcium Level 8.5 MG/DL Phosphorus Level 2.4 MG/DL Alkaline Phosphatase 110 U/L Aspartate Amino Transf (AST/SGOT) 16 U/L Alanine Aminotransferase (ALT/SGPT) 10 U/L Total Bilirubin 0.2 MG/DL Sodium Level 148 MEQ/L Potassium Level 4.2 MEQ/L Chloride Level 113 MEQ/L Carbon Dioxide Level 23.8 MEQ/L Anion Gap 11 MEQ/L Estimat Glomerular Filtration Rate 39 ML/MIN Imaging Last Impressions Upper Extremity Ultrasound 11/27/17 0000 Signed Impressions: CONCLUSION: 1. 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 Drainage Catheter Insertion 11/21/17 0000 Signed Impressions: CONCLUSION: 1. Uncomplicated nephroureteral stent placement as above. Approximately 200 cc of purulent appearing urine was immediately removed from the renal collecting system. Sample was collected for Gram stain and C&S. Findings were also discussed with Dr. Ascencio. Ideally, would need to remove the e xisting ureteral stent given concern for colonization. However, there are signi ficant calcifications along the proximal and distal portions of the stent and t he stent is likely adhered. This along with inferior pole calyx access will juani e antegrade retrieval attempt very challenging and likely not possible. Abdomen X-Ray 11/21/17 0000 Signed Impressions: CONCLUSION: Benign-appearing abdomen. Chest X-Ray 11/19/17 0600 Signed Impressions: Service Date/Time: Sunday, November 19, 2017 03:07 - CONCLUSION: 1. Interval removal of nasogastric tube. 2. The lungs remain clear. Rosales Jay MD Lower Extremity Ultrasound 11/16/17 0000 Signed Impressions: Service Date/Time: Thursday, November 16, 2017 08:49 - CONCLUSION: No evidence of deep venous thrombosis in either lower extremity. Chetan Beltre MD Abdomen Ultrasound 11/14/17 0000 Signed Impressions: Service Date/Time: October 07:56 - CONCLUSION: 1. There is elevated velocity within the proximal SMA which raises the possibility of a focal stenosis. 2. The vessels imaged and appear to be patent. Yo Joiner MD Abdomen/Pelvis CT 11/10/17 0601 Signed Impressions: Service Date/Time: Friday, November 10, 2017 07:44 - CONCLUSION: 1.Focal abnormal circumferential wall thickening involving the descending colon at the level of the hepatic flexure with significant adjacent fluid tracking within the right paracardiac color. Given the extensive atherosclerosis and focal finding concern is for possible infarct. Infection is also within the differential diagnosis. 2. Interval placement of a right-sided percutaneous nephrostomy tube. Stable appearance of the right kidney with multiple renal stones. Josefa Hair MD Head CT 11/10/17 0000 Signed Impressions: Service Date/Time: Friday, November 10, 2017 11:22 - CONCLUSION: Stable exam. No acute abnormality.. Josefa Hair MD Physical Exam GENERAL: WDWN female, INAD. Awake and alert, has dysarthria SKIN: Cool and dry. + pressure ulcer over left elbow. HEAD: Atraumatic. Normocephalic. No temporal or scalp tenderness. EYES: Pupils equal round and reactive. . No scleral icterus. No injection or drainage. ENT: Nose without bleeding, purulent drainage or septal hematoma. Moist mucosa NECK: Trachea midline. No JVD or lymphadenopathy. Supple, nontender, no meningeal signs. CARDIOVASCULAR: Regular rate and rhythm without murmurs, gallops, or rubs. RESPIRATORY: Clear to auscultation. Breath sounds equal bilaterally. No wheezes , rales, or rhonchi. Decreased BS at bases GASTROINTESTINAL: Abdomen soft, mildly distended, PEG site slightly erythematous, has diffuse tenderness to palpation, no guarding or rebound. Cath on back R with clear urine MUSCULOSKELETAL: RUE edematous and erythematous. Bilateral pedal edema. NEUROLOGICAL: Awake and alert. Decreased nasolabial fold on R. Weak on L with contractures. Both feet plantar flexed. Has dysarthria Psych: Calm and cooperative. IV line sites with no e.o infection. (Eli Rolon) Assessment & Plan Remarks Assessment and Plan MDR PSAE complicated UTI C.albicans UTI Both grew from nephrostomy tubes. Currently not on steroids and WBC increasing. Rt nephrostomy tube in place. Pain bilateral LE: no DVT on doppler. +RUE thrombosis right radial vein ? 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 I reviewed and agree with the findings presented. I attest that I had a [id number] encounter with the patient on the same day, and personally performed and documented my assessment and findings in the medical record. DC Flagyl IV Continue Zerbaxa IV Continue Diflucan IV DVT Mment per Primary team. (Teagan Landaverde MD) Eli Rolon November 27, 2017 14:11 Teagan Landaverde MD November 27, 2017 18:25
--- NOTE | 2017-11-27 16:43 | HHI.HCPN ---
Reason for visit a. To assist with evaluation and management of symptoms including: dysphagia , pain, altered mental status b. To assist medical decision maker(s) with: better understanding of current medical conditions; weighing benefits/burdens of medical treatment options; making medical treatment decisions. . Subjective/Interval History Patient was transferred back to [facility] on 11/16/2017 secondary to acute hypoxemic/ hypercapnic respiratory failure requiring intubation. Patient seen and assessed in [facility], room 1311. Patient appears to be sleeping but arouses easily to verbal stimuli. Respirations are unlabored, oxygen saturations stable on RA. Patient is able to respond to some simple questions with brief answers. She continues to have limited insight and judgment regarding her medical conditions. Status post ureteral stent placement on 11/21/2017; retained stent which cannot be removed. Infectious disease was consulted for ESBL UTI; repeat urinalysis pending with Pippa albicans. Patient remains on antibiotics-sister Baxa, Diflucan, Flagyl. Blood work reviewed from 11/27/17: = WBC: 9.0, hemoglobin 8.6, hematocrit 27.5, platelets 255, neutrophils 72.7% = Sodium 148, potassium 4.2, chloride 113, carbon dioxide 23.8, glucose 212, calcium 8.5, phosphorus 2.4 = BUN: 25, creatinine 1.38, GFR 39 = Total bilirubin: 0.2, AST 16, ALT 10, alkaline phosphatase 110 = Total protein: 6.6, albumin 2.3 Patient reporting ongoing pain in bilateral extremities but is unable to describe or rate pain. Currently receiving gabapentin 100 mg twice daily for neuropathic pain; morphine 2 mg IV is available every 4 hours as needed for breakthrough pain. Patient has required no PRN medications in the past 24 hours. Spoke with patient's son, Daniela, after examination. Update provided on patient 's clinical condition. Given patient's recent decline and over poor functioning status, Daniela requested to speak with someone from hospice tomorrow 11/28/2017. Meeting is likely information seeking only. Hospice consult placed. Discussed with bedside nurse, case coordinator and Dr. Taylor; spoke with Silvio at hospice intake. Advance Directives Health Care Surrogate: Copy in medical record Advance Directive Specifics Date completed: 03/2013 Health Care Surrogate(s): Cong Wilson--this was misspelled by person completing form son's name is Daniela Objective Vital Signs Date Time Temp Pulse Resp B/P (MAP) Pulse Ox O2 Delivery O2 Flow Rate FiO2 11/27/17 16:00 98.5 76 18 141/73 (95) 98 11/27/17 16:00 83 11/27/17 12:00 74 11/27/17 12:00 98.5 76 18 141/73 (95) 98 11/27/17 10:00 79 11/27/17 10:00 98.4 84 18 112/71 (85) 97 11/27/17 08:00 84 11/27/17 08:00 98.4 84 18 112/71 (85) 97 11/27/17 07:00 97 Room Air 11/27/17 04:00 90 11/27/17 04:00 98.5 90 17 146/76 (99) 96 11/27/17 00:00 98.2 109 20 146/67 (93) 94 11/27/17 00:00 109 11/26/17 20:12 98 21 11/26/17 20:00 102 11/26/17 20:00 98.2 102 17 165/90 (115) 97 11/26/17 19:00 98 Room Air 11/26/17 18:00 97 Intake & Output 11/27/17 11/27/17 07:00 19:00 Intake Total 793 ml Output Total 600 ml 350 ml Balance 193 ml -350 ml Tube Feeding 553 ml Other 240 ml Output Urine Total 75 ml Tube Feeding Residual Discard 0 ml 0 ml Drainage Total 525 ml 350 ml # Voids 2 # Bowel Movements 0 . Physical Exam CONSTITUTIONAL/GENERAL: Patient is a debilitated, female in no acute distress TUBES/LINES/DRAINS: Peripheral IV upper extremity, PEG, Podus boots, purewick cath, nephrostomy tube SKIN: No jaundice, rashes, or lesions. No wounds seen anteriorly. Skin warm/dry CARDIOVASCULAR: Regular rate and rhythm without murmur. No JVD. Peripheral pulses symmetric. RESPIRATORY/CHEST: Symmetric, unlabored respirations. Breath sounds diminished bilaterally. GASTROINTESTINAL: Abdomen soft, nontender, nondistended. Status post PEG. Normoactive bowel sounds 4 quadrants GENITOURINARY: Without palpable bladder distension. Purewick cath MUSCULOSKELETAL: Extremities without clubbing, cyanosis. Edema in bilateral lower extremities; left >right. + Edema right upper extremity. Left foot drop? NEUROLOGICAL: Appears to be sleeping, arouses easily to verbal stimuli. Responds to questions with brief answers. PSYCHIATRIC: Flat affect. No anxiety/agitation observed. . Diagnostic Tests Laboratory Laboratory Tests Test 11/25/17 11:04 11/25/17 13:03 11/27/17 04:50 11/27/17 05:48 Blood Urea Nitrogen 24 MG/DL (7-18) 25 MG/DL (7-18) Creatinine 1.37 MG/DL (0.50-1.00) 1.38 MG/DL (0.50-1.00) Random Glucose 250 MG/DL (74-106) 212 MG/DL (74-106) Calcium Level 8.5 MG/DL (8.5-10.1) 8.5 MG/DL (8.5-10.1) Phosphorus Level 2.7 MG/DL (2.5-4.9) 2.4 MG/DL (2.5-4.9) Magnesium Level 2.1 MG/DL (1.5-2.5) Sodium Level 147 MEQ/L (136-145) 148 MEQ/L (136-145) Potassium Level 4.6 MEQ/L (3.5-5.1) 4.2 MEQ/L (3.5-5.1) Chloride Level 114 MEQ/L (98-107) 113 MEQ/L (98-107) Carbon Dioxide Level 27.4 MEQ/L (21.0-32.0) 23.8 MEQ/L (21.0-32.0) Anion Gap 6 MEQ/L (5-15) 11 MEQ/L (5-15) Estimat Glomerular Filtration Rate 39 ML/MIN (>89) 39 ML/MIN (>89) White Blood Count 12.6 TH/MM3 (4.0-11.0) 9.0 TH/MM3 (4.0-11.0) Red Blood Count 3.98 MIL/MM3 (4.00-5.30) 3.38 MIL/MM3 (4.00-5.30) Hemoglobin 10.2 GM/DL (11.6-15.3) 8.6 GM/DL (11.6-15.3) Hematocrit 32.5 % (35.0-46.0) 27.5 % (35.0-46.0) Mean Corpuscular Volume 81.6 FL (80.0-100.0) 81.2 FL (80.0-100.0) Mean Corpuscular Hemoglobin 25.6 PG (27.0-34.0) 25.5 PG (27.0-34.0) Mean Corpuscular Hemoglobin Concent 31.4 % (32.0-36.0) 31.4 % (32.0-36.0) Red Cell Distribution Width 18.9 % (11.6-17.2) 20.0 % (11.6-17.2) Platelet Count 229 TH/MM3 (150-450) 255 TH/MM3 (150-450) Mean Platelet Volume 9.6 FL (7.0-11.0) 9.6 FL (7.0-11.0) Total Protein 6.6 GM/DL (6.4-8.2) Albumin 2.3 GM/DL (3.4-5.0) Alkaline Phosphatase 110 U/L (45-117) Aspartate Amino Transf (AST/SGOT) 16 U/L (15-37) Alanine Aminotransferase (ALT/SGPT) 10 U/L (10-53) Total Bilirubin 0.2 MG/DL (0.2-1.0) Neutrophils (%) (Auto) 72.7 % (16.0-70.0) Lymphocytes (%) (Auto) 16.7 % (9.0-44.0) Monocytes (%) (Auto) 5.9 % (0.0-8.0) Eosinophils (%) (Auto) 3.5 % (0.0-4.0) Basophils (%) (Auto) 1.2 % (0.0-2.0) Neutrophils # (Auto) 6.6 TH/MM3 (1.8-7.7) Lymphocytes # (Auto) 1.5 TH/MM3 (1.0-4.8) Monocytes # (Auto) 0.5 TH/MM3 (0-0.9) Eosinophils # (Auto) 0.3 TH/MM3 (0-0.4) Basophils # (Auto) 0.1 TH/MM3 (0-0.2) CBC Comment DIFF FINAL Differential Comment . Result Diagram: 11/27/17 0548 11/27/17 0450 Imaging Last 72 hours Impressions Upper Extremity Ultrasound 11/27/17 0000 Signed Impressions: CONCLUSION: 1. 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 . Procedures 11/16/2017: Intubation 11/18/2017: PEG tube placement . Assessment and Plan Disease Oriented Problem List: (1) Anemia (2) Hematuria (3) Acute kidney injury (4) ESBL (extended spectrum beta-lactamase) producing bacteria infection (5) Atrial fibrillation (6) CAD (coronary artery disease) (7) Schizophrenia (8) Dyslipidemia (9) UTI (urinary tract infection) (10) Hydronephrosis (11) Severe sepsis with acute organ dysfunction (12) right MCA stroke 2013, with left hemiparesis (13) hypertension (14) history of decubiti (15) chronic kidney disease (16) coronary artery disease, history of stents (17) dislodging of nephrostomy tube, replaced 07/17/17 Symptom Scale: (1) Dysphagia 0-10 Scale: Unable to quantify (2) Pain 0-10 Scale: Unable to quantify (3) Altered mental status Pertinent Non-Medical Issues Psychosocial: Spiritual: Legal:Patient confused baseline, does not appear to have capacity to make medical decisions does not appear she will regain capacity. Her son is designated as healthcare surrogate on document dated 2012. They have not been able to reach him this admission for consent, of note palliative care was consulted on this patient in July 2017 and at that time there was no answer or voicemail on my multiple attempts. Her review further of old records in May 2017 case management requested wellness checks at patient's son possible address, this person did not live there. Apparently at some point in 2014 the son was incarcerated per CM notes. 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 Will request [employer]INT search to identify possible decision makers. 11/11/17 palliative 7th grade social studies teacher reviewed findings of [employer] report and social network search--able to locate and initiate contact through Son's girlfriend number, son is actually DANIELA Wilson [phone] Ethical issues impacting care: none identified Important Contacts SON/HCS Daniela Wilson [phone] NOT Dev Wilson [phone], [phone]-->this # is NOT anyone related to pt . Prognosis This patient has multiple chronic medical conditions. She has been debilitated and lives in a care home long-term. Due to these multiple conditions, she will likely continue to have ongoing complications, setbacks and recurrent hospitalizations. . Code Status: Full Code Plan * FULL CODE * Legal decision maker: Patient confused baseline, does not appear to have capacity to make medical decisions nor does it appear she will regain capacity. Son, Daniela Wilson, is the designated HCS; designation forms completed in 2012. * Goals aggressive for now; continue all available treatments, including full code. * Discussed current medical treatment goals with RN (Jericho) and Dr. Taylor * Spoke with patient's son, Daniela, after examination. Update provided on patient's clinical condition. Given patient's recent decline and over poor functioning status, Daniela requested to speak with someone from hospice tomorrow 11/28/2017. Meeting is likely information seeking only. Hospice consult placed. Discussed with bedside nurse, case coordinator and Dr. Taylor; spoke with Silvio at hospice intake. * SYMPTOMS: --Altered mental status: Patient status post CVA likely with some residual cognitive deficits. Also with long psychiatric history per records. 11/22/2017 : Patient is awake, staring vacantly. She would not answer questions and refused physical examination initially. Patient later responded to simple questions with 1-2 words answers and intermittently followed 1 step simple commands. Affect is flat similar to the day before yesterday on 11/20/2017 when the patient became agitated and attempted to "swing" at provider. Currently on risperidone 0.5 mg TID and sertraline 50 mg daily; may consider consulting psychiatry for recommendations/medication changes. --Pain: Patient begins moaning/yelling with any type of exam to lower extremities. BLE are edematous; left > right. Bilateral foot drop. ? Etiology chronic immobility/bedbound status. Patient reporting ongoing pain in bilateral extremities but is unable to describe or rate pain. Currently receiving gabapentin 100 mg twice daily for neuropathic pain; morphine 2 mg IV is available every 4 hours as needed for breakthrough pain. Patient has required no PRN medications in the past 24 hours.. May want to consider increasing gabapentin dose or starting the patient on a scheduled analgesic if pain persists/worsens. --Dysphagia- s/p multiple CVAs. Appears has had some degree of ongoing chronic dysphagia 2/2 to, with diet modifications in place. Patient unable to tolerate attempts at modified oral diet per ST. Patient remains NPO after suspected aspiration event for with need for short-term intubation status post PEG tube placement on 11/18/2017. Dietary recommending Glucerna 1.5 at 30 mL's per hour increase 10 mL's per hour as tolerated to goal rate of 50 mL's per hour. * Palliative care will continue to follow during hospital course as condition evolves, to assist patient/decision-maker with understanding of medical conditions, weighing benefits/burdens of treatment options, for clarification of goals of treatment. Additionally will assist with any symptoms of palliative concern . Attestation To help prompt me to consider important information that might be impacting today's encounter and assessment, information from prior notes written by myself or my colleagues may have been "brought forward" into today's note. My signature on this note, however, is an attestation that I personally performed the exam, history, and/or decision-making noted today, and, unless otherwise indicated, the interactions with patient, family, and staff as well as the review of records all occurred today. I also attest that the listed assessment and stated plan reflect my best clinical judgment today based on the combination of historical information, prior notes, and today's exam/ interactions. When time spent is documented, it refers only to time spent today by the signer, or if indicated, combined time spent today by collaborating physician/nurse practitioner. . Amy Sommers November 27, 2017 16:43
--- NOTE | 2017-11-27 18:30 | HHI.PR ---
Subjective Remarks patient seen today around 1 PM says she is feeling all right. Denies pain. Objective Vital Signs Date Time Temp Pulse Resp B/P (MAP) Pulse Ox O2 Delivery O2 Flow Rate FiO2 11/27/17 16:00 98.5 76 18 141/73 (95) 98 11/27/17 16:00 83 11/27/17 12:00 74 11/27/17 12:00 98.5 76 18 141/73 (95) 98 11/27/17 10:00 79 11/27/17 10:00 98.4 84 18 112/71 (85) 97 11/27/17 08:00 84 11/27/17 08:00 98.4 84 18 112/71 (85) 97 11/27/17 07:00 97 Room Air 11/27/17 04:00 90 11/27/17 04:00 98.5 90 17 146/76 (99) 96 11/27/17 00:00 98.2 109 20 146/67 (93) 94 11/27/17 00:00 109 11/26/17 20:12 98 21 11/26/17 20:00 102 11/26/17 20:00 98.2 102 17 165/90 (115) 97 11/26/17 19:00 98 Room Air I/O 11/26/17 11/26/17 11/26/17 11/27/17 11/27/17 11/27/17 07:00 15:00 23:00 07:00 15:00 23:00 Intake Total 767 ml 100 ml 963 ml 793 ml Output Total 850 ml 850 ml 1080.0 ml 600 ml 350 ml Balance -83 ml -750 ml -117.0 ml 193 ml -350 ml IV Total 100 ml Tube Feeding 497 ml 663 ml 553 ml Other 270 ml 300 ml 240 ml Output Urine Total 850 ml 400 ml 75 ml Tube Feeding Residual Discard 0 ml 0 ml Drainage Total 850 ml 680 ml 525 ml 350 ml Bladder Scan Volume Amount 0 ml # Voids 2 2 2 # Bowel Movements 1 1 0 Result Diagram: 11/27/17 0548 11/27/17 0450 Objective Remarks GENERAL: Patient sitting up in bed. Appears comfortable. Talking, however very limited speech as yesterday.no change on exam. SKIN: Warm and dry. HEAD: Normocephalic. EYES: No scleral icterus. No injection or drainage. NECK: Supple, trachea midline. No JVD. CARDIOVASCULAR: Regular rate and rhythm without murmurs, gallops, or rubs. RESPIRATORY: Breath sounds equal bilaterally. No accessory muscle use. GASTROINTESTINAL: Abdomen soft, non-tender, nondistended. PEG tube in place without any surrounding erythema. MUSCULOSKELETAL: No cyanosis. Patient with 2+ bilateral lower extremity anasarca, again somewhat improved today.. Nontender. Perfusion intact. Patient with 2 x 2 centimeter black pressure ulcer over left elbow, now dressed BACK: Nontender without obvious deformity. No CVA tenderness. A/P Assessment and Plan =======11/26/17======== //ESBL E. coli UTI //Status post ureteral stent placement 11/21 //Acute kidney injury. //Complex UTI -Creatinine 1.37 Improving = ID urology following. = White count up 12.6. No fevers however. Continue to monitor. Continue antibiotics and antifungals as per infectious disease. Appreciate assistance. Repeat urine cultures with Pippa. Patient continues on antifungals. //Accelerated hypertension with systolic blood pressures up to the 180s. continue hydralazine 100 mg 3 times daily. = Blood pressure acceptable on current regimen. Avoiding amlodipine secondary to bilateral lower extremity edema. //Hypernatremia. 2.8 L free[place] deficit. Had entered order as 180 mL every 4 hours on 11/25, however by order was admitted to 120 mL every 4 hours. Will start back in 180 mL every 4 hours. //Bilateral lower extremity edema. BNP within normal limits. Appears to be slightly improved today. Monitor off of amlodipine. //Pressure ulcer left elbow. Consult wound care appreciated. santyl ordered. 62-year-old white female admitted from a long-term facility for sepsis and acute hypoxic respiratory failure //Acute hypoxic hypercapnic respiratory failure secondary to aspiration Was intubated, currently satting well on 3L by NC Chest x-ray revealed bilateral lower lobe atelectasis. No focal infiltrates and /or effusions. However imaging might lag Duonebs every 6 hours with albuterol aerosols 2 hours as needed dyspnea GI: //Aspiration //Gastroesophageal reflux disease ///Sigmoid diverticulosis //Pancolitis //Internal and external hemorrhoids //Status post percutaneous and endoscopic gastrostomy tube placed 11/18 Currently on lansoprazole 30 mg by tube daily. On omeprazole 20 mg daily at home Docusate sodium 100 mg twice daily, senna 8.8 mg twice daily Initiate tube feeding daily via PEG tube with Glucerna 1.5 goal 50 cc an hour per nutrition recommendations Patient had sigmoidoscopy endoscopy 11/15 revealed sigmoid diverticulosis, pancolitis with internal and external hemorrhoids. CT abdomen/pelvis revealed descending colon wall thickening. Atherosclerotic vascular disease. Right hydronephrosis. Atrophic left kidney. Evaluated by general surgery/Dr. Guerrero that he is to be a surgical abdomen. Noted high velocities in SMA. Cannot anticoagulate due to history of bleeding Will do KUB 11/21 as noted with abdominal distention : Status post right nephrostomy tube Nephrolithiasis with right hydronephrosis Renal ultrasound revealed atrophic left kidney with right hydronephrosis with pigtail in place/nephrostomy tube Has decreased UOP urology consulted recommends IR for eval Endo: //Bipolar/schizophrenia //History of right MCA CVA with left-sided weakness //Chronic narcotic/opioid use with oxycodone/acetaminophen Continue Risperdal 0.5 mg by tube 3 times daily. Continue along with sertraline 50 mg p.o. daily Continue gabapentin 100 mg twice daily Avoid narcotics/sedating agents if possible //Essential hypertension //Hyperlipidemia //Coronary artery disease with stents to the RCA and LAD Continue aspirin 81 mg p.o. daily 2D echocardiogram 08/15 revealed EF 60-65%. No regional wall motion abnormality. Mild TR. Pulmonary arterial pressure 37 mmHg Continue metoprolol tartrate 25 mg p.o. twice daily. Hydralazine 50 3 times daily. As needed Nitropaste and nicardipine drip //Diabetes mellitus type 2 Holding insulin detemir 7 units at night. Sliding-scale insulin with Novolin R with Accu-Cheks every 6 hours to maintain euglycemia/low regimen Renal: //Acute kidney injury in the setting of chronic kidney disease stage III a //Right hydronephrosis status post right nephrostomy tube //Right nephrolithiasis Maintain nephrostomy tube Monitor urine output Accurate I's and O's A.m. BMP pending Heme: //Leukocytosis //Normocytic anemia Monitor CBC daily. Follow trends. No indication for transfusion of blood products at this time. Follow-up coags ID: Multidrug-resistant ESBL positive E. coli/multidrug-resistant Pseudomonas and Enterococcus faecalis UTI likely contaminant Currently of piperacillin/tazobactam and metronidazole IV. Blood cultures 2 on admission were no growth tod ate. Urine revealed ESBL positive E. coli. Repeat blood cultures 2, urine and sputum 11/16 with sputum not completed. FEN: //Hypernatremia We will place on half normal saline at 50 cc while currently n.p.o. MSK: //Well healed Sacral decubitus/heel ulcers Wound care evaluation and treat //Prophylaxis -GI -lansoprazole -DVT -SCD/holding pharmacological prophylaxis in light of history of hematuria on TSOAC Discharge Planning Candidate for hospice at long-term living facility. Palliative care is ff Patient is full code however Continues on IV antibiotics. We will need infectious disease clearance. Reed Taylor MD November 27, 2017 18:30
[2017-11-27] MEDS: ATORVASTATIN 40 MG TAB PO SCH (20:18)
[2017-11-28] VITALS (9 sets, daily range): BP systolic 135–170; BP diastolic 66–77; PULSE 71–91; RESP 15–18; TEMP 98.1–98.8; O2SAT 94–100
[2017-11-28] MEDS: NS IV SCH ×6 (00:39→17:45)
[2017-11-28] MEDS: CEFTOLOZANE TAZOBACTAM IV SCH ×6 (00:39→17:45)
[2017-11-28] MEDS: FREE WATER G-TUBE SCH ×5 (04:00→20:29)
[2017-11-28] MEDS: INSULIN ASPART SUPPLEMENTAL SCALE SQ SCH ×4 (06:00→17:45)
[2017-11-28] MEDS: hydrALAZINE HCL 25 MG TAB G-TUBE SCH ×3 (06:06→21:03)
[2017-11-28] MEDS: ISOSORBIDE DINITRATE 20 MG TAB PO SCH ×3 (06:06→21:02)
[2017-11-28] MEDS: CHLORHEXIDINE 0.12% (ORAL KIT) 15 ML CUP MT SCH ×2 (07:43→20:00)
[2017-11-28] MEDS: METOPROLOL TARTRATE 25 MG TAB PO SCH ×2 (07:44→20:28)
[2017-11-28] MEDS: MUPIROCIN 2% OINT 1 APPLIC/GM SYR EACH NARE SCH ×2 (07:44→20:31)
[2017-11-28] MEDS: LANSOPRAZOLE SOLUTAB 30 MG TAB NG SCH (07:44)
[2017-11-28] MEDS: ASPIRIN 81 MG CHEW TAB CHEW SCH (07:44)
[2017-11-28] MEDS: SERTRALINE HCL 50 MG TAB PO SCH (07:44)
[2017-11-28] MEDS: GABAPENTIN 100 MG CAP PO SCH ×2 (07:44→20:28)
[2017-11-28] MEDS: risperiDONE 0.5 MG TAB PO SCH ×3 (07:44→17:45)
[2017-11-28] MEDS: DOCUSATE SODIUM 100 MG/10 ML UDC PO SCH ×2 (07:45→20:31)
[2017-11-28] MEDS: POLYETHYLENE GLYCOL 17 GM PKG PO SCH (07:45)
[2017-11-28] MEDS: ARTIFICIAL TEARS OPTH SOLN 15 ML BTL EACH EYE SCH ×2 (07:45→20:30)
[2017-11-28] MEDS: COLLAGENASE OINT 30 GM TUBE TOPICAL SCH (07:45)
[2017-11-28] MEDS: SENNOSIDES SYRUP 8.8 MG/5 ML CUP PO SCH ×2 (07:45→20:31)
[2017-11-28] MEDS: SODIUM CHLORIDE 0.9% FLUSH 10 ML FLUSH IV FLUSH SCH ×2 (07:45→20:29)
[2017-11-28] MEDS: LACTULOSE SYRUP 20 GM/30 ML CUP PO SCH (07:45)
--- NOTE | 2017-11-28 11:43 | HHI.IDPN ---
Subjective Subjective Remarks Patient seen and examined on behalf of Dr. 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 Most of the history is by review of medical records. Patient presented to the ED on 2017 from her nursing facility with reports of gurgling respirations, tachypnea and O2 sats in the 50s. She apparently is a resident of [facility] due to CVA, sepsis. While in the ED there is reported temperature of 102.9. Strong urine odor was reported by EMS. In the ED, patient was noted to have WBC 18.2, H/H 7.7/24.9, lactic acid 0.9. BUN 61/creatinine 3.97, GFR 11. Sepsis workup initiated. CXR with no acute process. CT A/P with wall thickening noted. Extensive atherosclerosis noted concerning for infarct. Right side Percutaneous Nephrostomy with multiple renal stones. Patient was transfused 2 units packed cells for acute anemia. General surgery was consulted due to CT abdomen findings. Patient with colitis most notable at hepatic flexure. GI consulted and patient was started on empiric Zosyn, and Flagyl. Patient underwent EGD and Colonoscopy. Colonic path with focal colitis. UA done on admission and repeated thereafter is positive for MDR PSAE and C.albicans. Cath specimens appear to be collected from nephrostomy tubes as there is not much output from the PC Nephrostomy tubes. WBC continues to be elevated. Notes reviewed patient states she is ok but begins to yell when I attempt to examine her lower extremities when I lift the sheet up before ever touching leg she states her whole body hurts +abdominal pain afebrile RUE significantly edematous with mild erythema Had placement of new stent R 11/21 WBC WNL 11/27 Creatinine appears stable Repeat UCX C.Albicans BCX no growth x 5 days Doppler RUE + DVT Antibiotics IV Zerbaxa IV Diflucan Current Medications Medications (Trade) Dose Ordered Sig/Sukhi Route Start Time Stop Time Status Last Admin (NS Flush) 2 ml UNSCH PRN IV FLUSH 11/10/17 11:15 (NS Flush) 2 ml BID IV FLUSH 11/10/17 21:00 11/28/17 07:45 (Zofran Odt) 4 mg Q6H PRN PO 11/10/17 11:15 (Narcan Inj) 0.4 mg UNSCH PRN IV PUSH 11/10/17 11:15 (Benadryl) 25 mg Q4H PRN PO 11/10/17 11:45 (Morphine Inj) 2 mg Q4H PRN IV 11/11/17 18:30 11/26/17 13:02 (Neurontin) 100 mg BID PO 11/11/17 21:00 11/28/17 07:44 (Lopressor) 25 mg BID PO 11/11/17 21:00 11/28/17 07:44 (risperDAL) 0.5 mg TID PO 11/12/17 09:00 11/28/17 07:44 (Zoloft) 50 mg DAILY PO 11/12/17 09:00 11/28/17 07:44 (Lipitor) 40 mg HS PO 11/11/17 21:00 11/27/17 20:18 (Bactroban Nasal 2% Oint) Taper BID EACH NARE 11/16/17 09:00 11/12/18 08:59 11/28/17 07:44 (Prevacid Odt) 30 mg DAILY NG 11/16/17 09:00 11/28/17 07:44 (Albuterol Neb) 2.5 mg Q2HR NEB PRN NEB 11/16/17 07:45 (Colace Liq) 100 mg Q12HR PO 11/16/17 09:00 11/27/17 20:19 (Senna Liq) 8.8 mg Q12HR PO 11/16/17 09:00 11/27/17 20:17 (Miralax) 17 gm DAILY PO 11/16/17 09:00 11/26/17 08:07 (Lactulose Liq) 30 ml DAILY PO 11/16/17 09:00 11/26/17 08:06 (Tears Naturale Opth Soln) 1 drop BID EACH EYE 11/16/17 09:00 11/28/17 07:45 (Nitroglycerin 2% Oint) 2 inch Q6HR PRN TOPICAL 11/16/17 10:00 11/20/17 11:15 (Peridex 0.12% Liq) 15 ml BID@08,20 MT 11/16/17 20:00 11/28/17 07:43 Potassium Chloride 100 ml @ 50 mls/hr Q2H PRN IV 11/17/17 15:15 Potassium Chloride 100 ml @ 50 mls/hr Q2H PRN IV 11/17/17 15:15 (K-Lyte Cl Eff) 50 meq UNSCH PRN PO 11/17/17 15:15 11/19/17 07:35 Potassium Chloride 100 ml @ 25 mls/hr UNSCH PRN IV 11/17/17 15:15 Potassium Chloride 100 ml @ 50 mls/hr Q2H PRN IV 11/17/17 15:15 11/21/17 10:43 Magnesium Sulfate 4 gm/Sodium Chloride 100 ml @ 50 mls/hr UNSCH PRN IV 11/17/17 15:15 (Mag-Ox) 800 mg UNSCH PRN PO 11/17/17 15:15 Magnesium Sulfate 2 gm/Sodium Chloride 100 ml @ 50 mls/hr UNSCH PRN IV 11/17/17 15:15 (K-Phos) 2,000 mg Q4H PRN PO 11/17/17 15:15 Sodium Phosphate 30 mmol/Sodium Chloride 250 ml @ 42 mls/hr UNSCH PRN IV 11/17/17 15:15 (K-Phos) 2,000 mg UNSCH PRN PO/TUBE 11/17/17 15:15 Potassium Phosphate 30 mmol/ Sodium Chloride 260 ml @ 42 mls/hr UNSCH PRN IV 11/17/17 15:15 11/18/17 06:16 (Aspirin Chew) 81 mg DAILY CHEW 11/19/17 09:00 11/28/17 07:44 Nicardipine HCl 25 mg/Sodium Chloride 260 ml @ 52 mls/hr TITRATE PRN IV 11/18/17 14:30 11/24/17 10:34 (Tylenol 650 Mg/ 20 ml Liq) 650 mg Q6H PRN PO 11/20/17 09:15 (Apresoline Inj) 20 mg Q4H PRN IV PUSH 11/21/17 12:00 (Trandate Inj) 10 mg Q4H PRN IV PUSH 11/21/17 12:00 11/23/17 06:06 Fluconazole/ Sodium Chloride 50 ml @ 50 mls/hr Q24H IV 11/22/17 23:00 11/27/17 22:51 Ceftolozane/ Tazobactam 750 mg/ Sodium Chloride 100 ml @ 100 mls/hr Q8H IV 11/23/17 00:00 11/28/17 07:43 (Apresoline) 100 mg Q8HR G-TUBE 11/23/17 22:00 11/28/17 06:06 (Isordil) 20 mg Q8HR PO 11/26/17 22:00 11/28/17 06:06 (NovoLOG SUPPLEMENTAL SCALE) 1 Q6HR SQ 11/26/17 18:00 11/28/17 06:00 (D50w (Syr) Inj) 50 ml UNSCH PRN IV PUSH 11/26/17 16:30 (Glucagon Inj) 1 mg UNSCH PRN OTHER 11/26/17 16:30 (Free Water) 180 ml Q4HR G-TUBE 11/27/17 08:00 11/28/17 07:43 (Santyl Oint) 1 applic DAILY TOPICAL 11/28/17 09:00 11/28/17 07:45 Lines PIV with no e/o infection Past Medical History Reviewed (Eli Rolon) Allergies: Coded Allergies: *MDRO Multi-Drug Resistant Organism (Verified Adverse Reaction, Unknown, ) 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 ESBL + E. 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 Vital Signs Date Time Temp Pulse Resp B/P (MAP) Pulse Ox O2 Delivery O2 Flow Rate FiO2 11/28/17 11:13 97 21 11/28/17 08:00 98.3 91 16 136/66 (89) 97 11/28/17 08:00 91 11/28/17 07:00 96 Nasal Cannula 4.00 11/28/17 04:26 98.3 86 18 142/69 (93) 100 11/28/17 04:00 81 11/28/17 00:00 71 11/28/17 00:00 98.1 71 17 135/69 (91) 94 11/27/17 21:19 97 11/27/17 20:00 91 11/27/17 20:00 97.9 95 18 159/80 (106) 98 11/27/17 19:25 95 Nasal Cannula 4.00 11/27/17 16:00 98.5 76 18 141/73 (95) 98 11/27/17 16:00 83 11/27/17 12:00 74 11/27/17 12:00 98.5 76 18 141/73 (95) 98 . Laboratory Tests Test 11/27/17 05:48 White Blood Count 9.0 TH/MM3 Red Blood Count 3.38 MIL/MM3 Hemoglobin 8.6 GM/DL Hematocrit 27.5 % Mean Corpuscular Volume 81.2 FL Mean Corpuscular Hemoglobin 25.5 PG Mean Corpuscular Hemoglobin Concent 31.4 % Red Cell Distribution Width 20.0 % Platelet Count 255 TH/MM3 Mean Platelet Volume 9.6 FL Neutrophils (%) (Auto) 72.7 % Lymphocytes (%) (Auto) 16.7 % Monocytes (%) (Auto) 5.9 % Eosinophils (%) (Auto) 3.5 % Basophils (%) (Auto) 1.2 % Neutrophils # (Auto) 6.6 TH/MM3 Lymphocytes # (Auto) 1.5 TH/MM3 Monocytes # (Auto) 0.5 TH/MM3 Eosinophils # (Auto) 0.3 TH/MM3 Basophils # (Auto) 0.1 TH/MM3 CBC Comment DIFF FINAL Differential Comment Laboratory Tests Test 11/27/17 04:50 Blood Urea Nitrogen 25 MG/DL Creatinine 1.38 MG/DL Random Glucose 212 MG/DL Total Protein 6.6 GM/DL Albumin 2.3 GM/DL Calcium Level 8.5 MG/DL Phosphorus Level 2.4 MG/DL Alkaline Phosphatase 110 U/L Aspartate Amino Transf (AST/SGOT) 16 U/L Alanine Aminotransferase (ALT/SGPT) 10 U/L Total Bilirubin 0.2 MG/DL Sodium Level 148 MEQ/L Potassium Level 4.2 MEQ/L Chloride Level 113 MEQ/L Carbon Dioxide Level 23.8 MEQ/L Anion Gap 11 MEQ/L Estimat Glomerular Filtration Rate 39 ML/MIN Imaging Last Impressions Upper Extremity Ultrasound 11/27/17 0000 Signed Impressions: CONCLUSION: 1. 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 Drainage Catheter Insertion 11/21/17 0000 Signed Impressions: CONCLUSION: 1. Uncomplicated nephroureteral stent placement as above. Approximately 200 cc of purulent appearing urine was immediately removed from the renal collecting system. Sample was collected for Gram stain and C&S. Findings were also discussed with Dr. Ascencio. Ideally, would need to remove the e xisting ureteral stent given concern for colonization. However, there are signi ficant calcifications along the proximal and distal portions of the stent and t he stent is likely adhered. This along with inferior pole calyx access will juani e antegrade retrieval attempt very challenging and likely not possible. Abdomen X-Ray 11/21/17 0000 Signed Impressions: CONCLUSION: Benign-appearing abdomen. Chest X-Ray 11/19/17 0600 Signed Impressions: Service Date/Time: Sunday, November 19, 2017 03:07 - CONCLUSION: 1. Interval removal of nasogastric tube. 2. The lungs remain clear. Rosales Jay MD Lower Extremity Ultrasound 11/16/17 0000 Signed Impressions: Service Date/Time: Thursday, November 16, 2017 08:49 - CONCLUSION: No evidence of deep venous thrombosis in either lower extremity. Chetan Beltre MD Abdomen Ultrasound 11/14/17 0000 Signed Impressions: Service Date/Time: October 07:56 - CONCLUSION: 1. There is elevated velocity within the proximal SMA which raises the possibility of a focal stenosis. 2. The vessels imaged and appear to be patent. Yo Joiner MD Abdomen/Pelvis CT 11/10/17 0601 Signed Impressions: Service Date/Time: Friday, November 10, 2017 07:44 - CONCLUSION: 1.Focal abnormal circumferential wall thickening involving the descending colon at the level of the hepatic flexure with significant adjacent fluid tracking within the right paracardiac color. Given the extensive atherosclerosis and focal finding concern is for possible infarct. Infection is also within the differential diagnosis. 2. Interval placement of a right-sided percutaneous nephrostomy tube. Stable appearance of the right kidney with multiple renal stones. Josefa Hair MD Head CT 11/10/17 0000 Signed Impressions: Service Date/Time: Friday, November 10, 2017 11:22 - CONCLUSION: Stable exam. No acute abnormality.. Josefa Hair MD Physical Exam GENERAL: WDWN female, INAD. Awake and alert, has dysarthria SKIN: Cool and dry. + pressure ulcer over left elbow dressed. HEAD: Atraumatic. Normocephalic. No temporal or scalp tenderness. EYES: Pupils equal round and reactive. . No scleral icterus. No injection or drainage. ENT: Nose without bleeding, purulent drainage or septal hematoma. Moist mucosa NECK: Trachea midline. No lymphadenopathy. Supple, nontender, no meningeal signs. CARDIOVASCULAR: Regular rate and rhythm without murmurs, gallops, or rubs. RESPIRATORY: Nonlabored. Diminished at bases. Breath sounds equal bilaterally. No wheezes, rales, or rhonchi. GASTROINTESTINAL: Abdomen soft, distended, diffusely TTP. PEG site slightly erythematous, no guarding or rebound. Cath on back R with clear urine MUSCULOSKELETAL: RUE edematous and mildly erythematous. Bilateral pedal edema observed. Patient refused to let me touch BLEs. NEUROLOGICAL: Awake and alert. Decreased nasolabial fold on R. Weak on L with contractures. Both feet plantar flexed. Has dysarthria Psych: Overall calm and cooperative but refusing to let me examine BLEs. IV line sites with no e.o infection. (Eli Rolon) Assessment & Plan Remarks MDR PSAE complicated UTI C.albicans UTI Both grew from nephrostomy tubes. Rt nephrostomy tube in place. Pain bilateral LE: no DVT on doppler 11/16, reimage to r/o DVT +RUE thrombosis right radial vein ? Neuropathy Anemia, hgb dropped 10.2 to 8.6 Recs Continue Zerbaxa IV Continue Diflucan IV Doppler US BLEs RUE DVT management per primary team Monitor PEG site reliability engineer progress (Eli Rolon) Remarks The exam, history, and the medical decision-making described in the above note were completed with the assistance of the mid-level provider. I reviewed and agree with the findings presented. I attest that I had a [id number] encounter with the patient on the same day, and personally performed and documented my assessment and findings in the medical record. DC Zerbaxa IV DC Fluconazole IV Follow clinically off antibiotics. RUE DVT per primary team Will sign off please call back if any change in clinical condition or questions. (Teagan Landaverde MD) Eli Rolon November 28, 2017 11:43 Teagan Landaverde MD November 28, 2017 18:39
--- NOTE | 2017-11-28 12:38 | RADRPT ---
EXAM DATE: 11/28/2017 12:27 PM EDT AGE/SEX: 62 years / Female INDICATIONS: Diffuse abdominal pain CLINICAL DATA: This is the patient's subsequent encounter. Patient reports that signs and symptoms h ave been present for 1 week and indicates a pain score of Nonresponsive. MEDICAL/SURGICAL HISTORY: Sepsis. Diabetes mellitus type II. Hypertension. CVA, obstruction right renal calculi Coronary artery stent. Hysterectomy. ureteral stent COMPARISON: [facility] [place], ABDOMEN KUB ONLY, 11/21/2017. . FINDINGS: 2 right-sided ureteral stents are present, one of which is internal/external. Bowel gas pattern is n onspecific without evidence for obstruction or free air. There is a mild ileus. Previous kojo fixation proximal right femur. No free air. CONCLUSION: Mild ileus. Right ureteral stents as above. Electronically signed by: Pascual Jennings MD 11/28/2017 12:36 PM EDT
--- NOTE | 2017-11-28 13:30 | RADRPT ---
EXAM DATE: 11/28/2017 1:26 PM EDT AGE/SEX: 62 years / Female INDICATIONS: Bilateral leg pain. CLINICAL DATA: This is the patient's subsequent encounter. Patient reports that signs and symptoms h ave been present for 4 - 6 days and indicates a pain score of Nonresponsive. MEDICAL/SURGICAL HISTORY: Hypertension. Cerebrovascular accident. Myocardial infarction. Holm ry artery disease. Atrial fibrillation. Hydronephrosis. Diabetes. Schizophrenia. MRSA. Tonsillectom y. Hysterectomy. section. Cardiac catheterization. Coronary stent. Hip replacement. [place] [facility] [place] BILATERAL VEN[place] DOPPLER[place]/16/2017. . TECHNIQUE: Venous ultrasound of both lower extremities was performed from the inguinal ligament to t he proximal calf. Real-time, color Doppler and spectral tracing, compression and augmentation techni ques were used. FINDINGS: Right Leg: There is normal compressibility of the deep venous system from the inguinal region to the proximal calf. No echogenic clot is seen in the lumen of the common femoral, femoral, popliteal, an d posterior tibial veins. There is a normal response of the venous system to proximal and distal aug mentation and respiration. Left Leg: Visualization was suboptimal and limited. The left popliteal vein and peroneal vein could n ot be visualized. The other vessels were patent and compressible with normal venous waveform and augm entation response. CONCLUSION: 1. Right lower extremity is unremarkable with no evidence of deep venous thrombosis. 2. Suboptimal limited visualization of the left leg. The left popliteal vein peroneal veins could no t be visualized. There was no visualized deep venous thrombosis. Electronically signed by: Rosales Jay MD 11/28/2017 1:29 PM EDT
--- NOTE | 2017-11-28 16:16 | HHI.PR ---
Subjective Remarks Patient seen today around noon. Says she is feeling all right. Denies any cp or sob. Objective Vital Signs Date Time Temp Pulse Resp B/P (MAP) Pulse Ox O2 Delivery O2 Flow Rate FiO2 11/28/17 12:00 86 11/28/17 12:00 98.1 87 18 160/77 (104) 100 11/28/17 11:13 97 21 11/28/17 08:00 98.3 91 16 136/66 (89) 97 11/28/17 08:00 91 11/28/17 07:00 96 Nasal Cannula 4.00 11/28/17 04:26 98.3 86 18 142/69 (93) 100 11/28/17 04:00 81 11/28/17 00:00 71 11/28/17 00:00 98.1 71 17 135/69 (91) 94 11/27/17 21:19 97 11/27/17 20:00 91 11/27/17 20:00 97.9 95 18 159/80 (106) 98 11/27/17 19:25 95 Nasal Cannula 4.00 I/O 11/27/17 11/27/17 11/27/17 11/28/17 11/28/17 11/28/17 06:59 14:59 22:59 06:59 14:59 22:59 Intake Total 793 ml 200 ml 1353 ml Output Total 600 ml 350 ml 1900 ml Balance 193 ml -150 ml 1353 ml -1900 ml IV Total 200 ml 200 ml Tube Feeding 553 ml 613 ml Other 240 ml 540 ml Output Urine Total 75 ml 1900 ml Tube Feeding Residual Discard 0 ml Drainage Total 525 ml 350 ml # Voids 2 4 # Bowel Movements 0 1 1 Result Diagram: 11/27/17 0548 11/27/17 0450 Objective Remarks GENERAL: Patient sitting up in bed. Appears comfortable. Talking, however very limited speech as yesterday. SKIN: Warm and dry. HEAD: Normocephalic. EYES: No scleral icterus. No injection or drainage. NECK: Supple, trachea midline. No JVD. CARDIOVASCULAR: Regular rate and rhythm without murmurs, gallops, or rubs. RESPIRATORY: Breath sounds equal bilaterally. No accessory muscle use. GASTROINTESTINAL: Abdomen soft, non-tender, nondistended. PEG tube in place without any surrounding erythema. MUSCULOSKELETAL: No cyanosis. Nontender. Perfusion intact. left elbow, now dressed. Bilateral lower extremities with 2+ edema, improved from yesterday. BACK: Nontender without obvious deformity. No CVA tenderness. A/P Assessment and Plan =======11/28/17======== //ESBL E. coli UTI //Status post ureteral stent placement 11/21 //Acute kidney injury. //Complex UTI -Creatinine 1.37 Improving = ID urology following. = White count improving. No fevers however. Continue to monitor. Continue antibiotics and antifungals as per infectious disease. Appreciate assistance. Repeat urine cultures with Pippa. Patient continues on antifungals. //Accelerated hypertension with systolic blood pressures up to the 180s. continue hydralazine 100 mg 3 times daily. = Blood pressure acceptable on current regimen. Avoiding amlodipine secondary to bilateral lower extremity edema. //Hypernatremia. 2.8 L freewater deficit. Had entered order as 180 mL every 4 hours on 11/25, however by order was admitted to 120 mL every 4 hours. Will start back in 180 mL every 4 hours. = Labs have not been resulted for today. Will order 200 mL every 6 hour free water flushes via PEG //Bilateral lower extremity edema. BNP within normal limits. Appears to be slightly improved today. Monitor off of amlodipine. //Pressure ulcer left elbow. Consult wound care appreciated. santyl ordered. 62-year-old white female admitted from a long-term facility for sepsis and acute hypoxic respiratory failure //Acute hypoxic hypercapnic respiratory failure secondary to aspiration Was intubated, currently satting well on 3L by NC Chest x-ray revealed bilateral lower lobe atelectasis. No focal infiltrates and /or effusions. However imaging might lag Duonebs every 6 hours with albuterol aerosols 2 hours as needed dyspnea GI: //Aspiration //Gastroesophageal reflux disease ///Sigmoid diverticulosis //Pancolitis //Internal and external hemorrhoids //Status post percutaneous and endoscopic gastrostomy tube placed 11/18 Currently on lansoprazole 30 mg by tube daily. On omeprazole 20 mg daily at home Docusate sodium 100 mg twice daily, senna 8.8 mg twice daily Initiate tube feeding daily via PEG tube with Glucerna 1.5 goal 50 cc an hour per nutrition recommendations Patient had sigmoidoscopy endoscopy 11/15 revealed sigmoid diverticulosis, pancolitis with internal and external hemorrhoids. CT abdomen/pelvis revealed descending colon wall thickening. Atherosclerotic vascular disease. Right hydronephrosis. Atrophic left kidney. Evaluated by general surgery/Dr. Guerrero that he is to be a surgical abdomen. Noted high velocities in SMA. Cannot anticoagulate due to history of bleeding Will do KUB 11/21 as noted with abdominal distention : Status post right nephrostomy tube Nephrolithiasis with right hydronephrosis Renal ultrasound revealed atrophic left kidney with right hydronephrosis with pigtail in place/nephrostomy tube Has decreased UOP urology consulted recommends IR for eval Endo: //Bipolar/schizophrenia //History of right MCA CVA with left-sided weakness //Chronic narcotic/opioid use with oxycodone/acetaminophen Continue Risperdal 0.5 mg by tube 3 times daily. Continue along with sertraline 50 mg p.o. daily Continue gabapentin 100 mg twice daily Avoid narcotics/sedating agents if possible //Essential hypertension //Hyperlipidemia //Coronary artery disease with stents to the RCA and LAD Continue aspirin 81 mg p.o. daily 2D echocardiogram 08/15 revealed EF 60-65%. No regional wall motion abnormality. Mild TR. Pulmonary arterial pressure 37 mmHg Continue metoprolol tartrate 25 mg p.o. twice daily. Hydralazine 50 3 times daily. As needed Nitropaste and nicardipine drip //Diabetes mellitus type 2 Holding insulin detemir 7 units at night. Sliding-scale insulin with Novolin R with Accu-Cheks every 6 hours to maintain euglycemia/low regimen Renal: //Acute kidney injury in the setting of chronic kidney disease stage III a //Right hydronephrosis status post right nephrostomy tube //Right nephrolithiasis Maintain nephrostomy tube Monitor urine output Accurate I's and O's A.m. BMP pending Heme: //Leukocytosis //Normocytic anemia Monitor CBC daily. Follow trends. No indication for transfusion of blood products at this time. Follow-up coags ID: Multidrug-resistant ESBL positive E. coli/multidrug-resistant Pseudomonas and Enterococcus faecalis UTI likely contaminant Currently of piperacillin/tazobactam and metronidazole IV. Blood cultures 2 on admission were no growth tod ate. Urine revealed ESBL positive E. coli. Repeat blood cultures 2, urine and sputum 11/16 with sputum not completed. FEN: //Hypernatremia We will place on half normal saline at 50 cc while currently n.p.o. MSK: //Well healed Sacral decubitus/heel ulcers Wound care evaluation and treat //Prophylaxis -GI -lansoprazole -DVT -SCD/holding pharmacological prophylaxis in light of history of hematuria on TSOAC Discharge Planning Candidate for hospice at long-term living facility. Palliative care is ff Patient is full code however Continues on IV antibiotics. We will need infectious disease clearance. Transfer to medical floor. Reed Taylor MD November 28, 2017 16:15
[2017-11-28] MEDS: ATORVASTATIN 40 MG TAB PO SCH (20:28)
[2017-11-28] MEDS: INSULIN DETEMIR 100 UNITS/ML VIAL SQ SCH (20:29)
[2017-11-29] VITALS (7 sets, daily range): BP systolic 123–184; BP diastolic 62–81; PULSE 70–112; RESP 13–20; TEMP 97.7–98.7; O2SAT 96–99
[2017-11-29] MEDS: FREE WATER G-TUBE SCH ×6 (03:44→20:00)
[2017-11-29] MEDS: ISOSORBIDE DINITRATE 20 MG TAB PO SCH ×3 (05:26→21:38)
[2017-11-29] MEDS: hydrALAZINE HCL 25 MG TAB G-TUBE SCH ×3 (05:27→21:37)
[2017-11-29] MEDS: INSULIN ASPART SUPPLEMENTAL SCALE SQ SCH ×4 (05:54→17:19)
[2017-11-29 05:55] LABS: AUTOMATED NEUTROPHIL # 5.1 TH/MM3 (1.8-7.7); BASOPHIL # 0.1 TH/MM3 (0-0.2); BASOPHIL % 1.1 % (0.0-2.0); EOSINOPHIL # 0.3 TH/MM3 (0-0.4); EOSINOPHIL % 4.2 % (0.0-4.0); HEMATOCRIT 25.3 % (35.0-46.0); HEMOGLOBIN 8.1 GM/DL (11.6-15.3); LYMPH % 23.2 % (9.0-44.0); LYMPHOCYTE # 1.8 TH/MM3 (1.0-4.8); MEAN CELL VOLUME 81.4 FL (80.0-100.0); MEAN CORPUSCULAR HEMOGLOBIN 26.3 PG (27.0-34.0); MEAN CORPUSCULAR HGB CONC 32.2 % (32.0-36.0); MEAN PLATELET VOLUME 9.5 FL (7.0-11.0); MONO % 5.7 % (0.0-8.0); MONOCYTE # 0.4 TH/MM3 (0-0.9); NEUT % 65.8 % (16.0-70.0); PLATELET COUNT 260 TH/MM3 (150-450); RED CELL DISTRIBUTION WIDTH 19.8 % (11.6-17.2); WHITE BLOOD COUNT 7.7 TH/MM3 (4.0-11.0)
[2017-11-29 06:22] LABS: ALBUMIN 2.4 GM/DL (3.4-5.0); BICARBONATE 25.9 MEQ/L (21.0-32.0); CALCIUM 8.8 MG/DL (8.5-10.1); CREATININE 1.28 MG/DL (0.50-1.00); MAGNESIUM 2.3 MG/DL (1.5-2.5)
[2017-11-29 06:23] LABS: PHOSPHORUS 2.8 MG/DL (2.5-4.9)
[2017-11-29] MEDS: POLYETHYLENE GLYCOL 17 GM PKG PO SCH (09:00)
[2017-11-29] MEDS: LANSOPRAZOLE SOLUTAB 30 MG TAB NG SCH (09:07)
[2017-11-29] MEDS: risperiDONE 0.5 MG TAB PO SCH ×3 (09:07→17:19)
[2017-11-29] MEDS: METOPROLOL TARTRATE 25 MG TAB PO SCH ×2 (09:07→21:37)
[2017-11-29] MEDS: MUPIROCIN 2% OINT 1 APPLIC/GM SYR EACH NARE SCH ×2 (09:07→21:38)
[2017-11-29] MEDS: GABAPENTIN 100 MG CAP PO SCH ×2 (09:07→21:37)
[2017-11-29] MEDS: CHLORHEXIDINE 0.12% (ORAL KIT) 15 ML CUP MT SCH ×2 (09:07→20:00)
[2017-11-29] MEDS: SERTRALINE HCL 50 MG TAB PO SCH (09:07)
[2017-11-29] MEDS: ASPIRIN 81 MG CHEW TAB CHEW SCH (09:07)
[2017-11-29] MEDS: SODIUM CHLORIDE 0.9% FLUSH 10 ML FLUSH IV FLUSH SCH ×2 (09:08→21:00)
[2017-11-29] MEDS: SENNOSIDES SYRUP 8.8 MG/5 ML CUP PO SCH ×2 (09:08→21:00)
[2017-11-29] MEDS: DOCUSATE SODIUM 100 MG/10 ML UDC PO SCH ×2 (09:08→21:38)
[2017-11-29] MEDS: LACTULOSE SYRUP 20 GM/30 ML CUP PO SCH (09:08)
[2017-11-29] MEDS: ARTIFICIAL TEARS OPTH SOLN 15 ML BTL EACH EYE SCH ×2 (09:08→21:40)
[2017-11-29] MEDS: INSULIN DETEMIR 100 UNITS/ML VIAL SQ SCH ×2 (09:09→22:27)
[2017-11-29] MEDS: COLLAGENASE OINT 30 GM TUBE TOPICAL SCH (09:09)
--- NOTE | 2017-11-29 16:37 | HHI.PR ---
Subjective Remarks RN reports that nephrostomy tube is draining less now. Also reports that hospice hasn't been able to successfully reach son today for more decision making. Pt herself vocalizes no new complaints. Objective Vital Signs Date Time Temp Pulse Resp B/P (MAP) Pulse Ox O2 Delivery O2 Flow Rate FiO2 11/29/17 12:00 79 11/29/17 12:00 97.7 72 16 184/79 (114) 98 11/29/17 08:00 98.7 84 17 140/70 (93) 98 11/29/17 08:00 84 11/29/17 07:00 98 Room Air 11/29/17 04:00 98.3 70 13 123/62 (82) 97 11/29/17 04:00 71 11/29/17 00:00 98.3 84 16 146/73 (97) 97 11/29/17 00:00 86 11/28/17 21:02 97 21 11/28/17 20:00 98.8 88 15 170/77 (108) 98 11/28/17 20:00 88 11/28/17 19:00 98 Room Air I/O 11/28/17 11/28/17 11/28/17 11/29/17 11/29/17 11/29/17 06:59 14:59 22:59 06:59 14:59 22:59 Intake Total 1335 ml 1168 ml Output Total 1900 ml 125 ml 435 ml Balance -1900 ml 1210 ml 733 ml Tube Feeding 775 ml 568 ml Other 560 ml 600 ml Output Urine Total 1900 ml 400 ml Drainage Total 125 ml 35 ml # Voids 5 1 # Bowel Movements 1 2 1 Result Diagram: 11/29/17 0354 11/29/17 0354 A/P Assessment and Plan 62-year-old white female admitted from a long-term facility for sepsis and acute hypoxic respiratory failure. Underwent intubated course in ICU, was eventually extubated. Had a gastrostomy tube placed 11/18. //Acute kidney injury. -Improving //ESBL E. coli UTI //Status post ureteral stent placement 11/21 Status post right nephrostomy tube Nephrolithiasis with right hydronephrosis //Complex UTI = ID urology following. = White count improving. No fevers however. Continue to monitor. Continue antibiotics and antifungals as per infectious disease. Appreciate assistance. Repeat urine cultures with Pippa. Patient continues on antifungals. //Hypertension Continue amlodipine avoiding amlodipine secondary to bilateral lower extremity edema. //Hypernatremia. 200 mL every 6 hour free water flushes via PEG //Bilateral lower extremity edema. BNP within normal limits. Appears to be slightly improved today. Monitor off of amlodipine. //Pressure ulcer left elbow. Consult wound care appreciated. santyl ordered. Currently on lansoprazole 30 mg by tube daily. On omeprazole 20 mg daily at home Docusate sodium 100 mg twice daily, senna 8.8 mg twice daily Renal ultrasound revealed atrophic left kidney with right hydronephrosis with pigtail in place/nephrostomy tube Has decreased UOP urology consulted recommends IR for eval //Bipolar/schizophrenia //History of right MCA CVA with left-sided weakness //Chronic narcotic/opioid use with oxycodone/acetaminophen Continue Risperdal 0.5 mg by tube 3 times daily. Continue along with sertraline 50 mg p.o. daily Continue gabapentin 100 mg twice daily Avoid narcotics/sedating agents if possible //Hyperlipidemia //Coronary artery disease with stents to the RCA and LAD Continue aspirin 81 mg p.o. daily 2D echocardiogram 08/15 revealed EF 60-65%. No regional wall motion abnormality. Mild TR. Pulmonary arterial pressure 37 mmHg Continue metoprolol tartrate 25 mg p.o. twice daily. Hydralazine 50 3 times daily. //Diabetes mellitus type 2 Holding insulin detemir 7 units at night. Sliding-scale insulin with Novolin R with Accu-Cheks every 6 hours to maintain euglycemia/low regimen //Well healed Sacral decubitus/heel ulcers Wound care evaluation and treat //Prophylaxis -GI -lansoprazole Discharge Planning Awaiting for son/family to call back and engage in meeting with hospice. However unsuccessful attempts were made at contacting son today. Storm Draper MD Nov 29, 2017 16:37
[2017-11-29] MEDS: ATORVASTATIN 40 MG TAB PO SCH (21:37)
[2017-11-30] VITALS (8 sets, daily range): BP systolic 128–170; BP diastolic 60–80; PULSE 66–86; RESP 18–20; TEMP 97.8–98.3; O2SAT 96–99
[2017-11-30] MEDS: INSULIN ASPART SUPPLEMENTAL SCALE SQ SCH ×4 (00:02→17:25)
[2017-11-30] MEDS: cloNIDine HCL 0.1 MG TAB PO PRN ×2 (03:03→15:58)
[2017-11-30] MEDS: FREE WATER G-TUBE SCH ×6 (03:07→21:51)
[2017-11-30] MEDS: hydrALAZINE HCL 25 MG TAB G-TUBE SCH ×3 (06:00→22:47)
[2017-11-30] MEDS: ISOSORBIDE DINITRATE 20 MG TAB PO SCH ×3 (06:00→22:47)
[2017-11-30] MEDS: CHLORHEXIDINE 0.12% (ORAL KIT) 15 ML CUP MT SCH ×2 (08:00→21:51)
[2017-11-30] MEDS: SODIUM CHLORIDE 0.9% FLUSH 10 ML FLUSH IV FLUSH SCH ×2 (08:39→21:51)
[2017-11-30] MEDS: SERTRALINE HCL 50 MG TAB PO SCH (08:39)
[2017-11-30] MEDS: risperiDONE 0.5 MG TAB PO SCH ×3 (08:39→17:24)
[2017-11-30] MEDS: GABAPENTIN 100 MG CAP PO SCH ×2 (08:39→21:50)
[2017-11-30] MEDS: DOCUSATE SODIUM 100 MG/10 ML UDC PO SCH ×2 (08:40→21:50)
[2017-11-30] MEDS: LANSOPRAZOLE SOLUTAB 30 MG TAB NG SCH (08:40)
[2017-11-30] MEDS: METOPROLOL TARTRATE 25 MG TAB PO SCH ×2 (08:40→21:50)
[2017-11-30] MEDS: ASPIRIN 81 MG CHEW TAB CHEW SCH (08:40)
[2017-11-30] MEDS: LACTULOSE SYRUP 20 GM/30 ML CUP PO SCH (08:40)
[2017-11-30] MEDS: POLYETHYLENE GLYCOL 17 GM PKG PO SCH (08:40)
[2017-11-30] MEDS: INSULIN DETEMIR 100 UNITS/ML VIAL SQ SCH ×2 (08:41→22:47)
[2017-11-30] MEDS: COLLAGENASE OINT 30 GM TUBE TOPICAL SCH (08:41)
[2017-11-30] MEDS: MUPIROCIN 2% OINT 1 APPLIC/GM SYR EACH NARE SCH ×2 (08:41→21:50)
[2017-11-30] MEDS: ARTIFICIAL TEARS OPTH SOLN 15 ML BTL EACH EYE SCH ×2 (08:41→22:02)
[2017-11-30] MEDS: SENNOSIDES SYRUP 8.8 MG/5 ML CUP PO SCH ×2 (09:00→21:52)
--- NOTE | 2017-11-30 13:59 | HHI.PR ---
Subjective Remarks In bed, awake and alert. No complaints at this time. No n/v/d/c. No fever or chills. Objective Vitals Vital Signs Date Time Temp Pulse Resp B/P (MAP) Pulse Ox O2 Delivery O2 Flow Rate FiO2 11/30/17 13:00 98 11/30/17 08:00 98.1 78 18 128/60 (82) 97 11/30/17 04:00 97.8 86 20 170/80 (110) 99 11/30/17 03:20 98 11/30/17 00:00 98.1 77 20 165/76 (105) 96 11/29/17 22:46 112 11/29/17 20:00 98.1 83 20 184/81 (115) 96 11/29/17 16:00 97.7 73 18 163/75 (104) 99 11/29/17 16:00 71 I/O 11/29/17 11/29/17 11/29/17 11/30/17 11/30/17 11/30/17 07:00 15:00 23:00 07:00 15:00 23:00 Intake Total 1168 ml 1128 ml 0 ml Output Total 435 ml 515.0 ml 1000 ml Balance 733 ml 613.0 ml -1000 ml Intake Oral 0 ml Tube Feeding 568 ml 528 ml Other 600 ml 600 ml Output Urine Total 400 ml 500 ml 1000 ml Tube Feeding Residual Discard 15.0 ml Drainage Total 35 ml # Voids 1 # Bowel Movements 1 1 0 Result Diagram: 11/29/17 0354 11/29/17 0354 Imaging Last Impressions Lower Extremity Ultrasound 11/28/17 0000 Signed Impressions: CONCLUSION: 1. Right lower extremity is unremarkable with no evidence of deep venous throm bosis. 2. Suboptimal limited visualization of the left leg. The left popliteal vein p eroneal veins could not be visualized. There was no visualized deep venous thro mbosis. Abdomen X-Ray 11/28/17 Signed Impressions: CONCLUSION: Mild ileus. Right ureteral stents as above. Upper Extremity Ultrasound 11/27/17 0000 Signed Impressions: CONCLUSION: 1. 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 Drainage Catheter Insertion 11/21/17 0000 Signed Impressions: CONCLUSION: 1. Uncomplicated nephroureteral stent placement as above. Approximately 200 cc of purulent appearing urine was immediately removed from the renal collecting system. Sample was collected for Gram stain and C&S. Findings were also discussed with Dr. Ascencio. Ideally, would need to remove the e xisting ureteral stent given concern for colonization. However, there are signi ficant calcifications along the proximal and distal portions of the stent and t he stent is likely adhered. This along with inferior pole calyx access will juani e antegrade retrieval attempt very challenging and likely not possible. Chest X-Ray 11/19/17 0600 Signed Impressions: Service Date/Time: Sunday, November 19, 2017 03:07 - CONCLUSION: 1. Interval removal of nasogastric tube. 2. The lungs remain clear. Rosales Jay MD Abdomen Ultrasound 11/14/17 0000 Signed Impressions: Service Date/Time: October 07:56 - CONCLUSION: 1. There is elevated velocity within the proximal SMA which raises the possibility of a focal stenosis. 2. The vessels imaged and appear to be patent. Yo Joiner MD Abdomen/Pelvis CT 11/10/17 0601 Signed Impressions: Service Date/Time: Friday, November 10, 2017 07:44 - CONCLUSION: 1.Focal abnormal circumferential wall thickening involving the descending colon at the level of the hepatic flexure with significant adjacent fluid tracking within the right paracardiac color. Given the extensive atherosclerosis and focal finding concern is for possible infarct. Infection is also within the differential diagnosis. 2. Interval placement of a right-sided percutaneous nephrostomy tube. Stable appearance of the right kidney with multiple renal stones. Josefa Hiar MD Head CT 11/10/17 0000 Signed Impressions: Service Date/Time: Friday, November 10, 2017 11:22 - CONCLUSION: Stable exam. No acute abnormality.. Josefa Hair MD Objective Remarks GENERAL: The patient is bedridden, chronically ill. CARDIOVASCULAR: Regular rate and rhythm without murmurs, gallops, or rubs. RESPIRATORY: Shortness of breath, in acute distress, labored breathing, positive rhonchi, some accessory muscle use. GASTROINTESTINAL: Abdomen soft, non-tender, distended. Some pain on palpation at the PEG tube site, PEG tube in place. MUSCULOSKELETAL: No cyanosis, or edema. NEURO: Slurred speech, very limited conversive vocabulary, left wrist is chronically clenched. A/P Problem List: (1) UTI (urinary tract infection) ICD Code: N39.0 - Urinary tract infection, site not specified (2) Encephalopathy acute ICD Code: G93.40 - Encephalopathy, unspecified (3) Leukocytosis ICD Code: D72.829 - Elevated white blood cell count, unspecified (4) Abnormal CT scan ICD Code: R93.8 - Abnormal findings on diagnostic imaging of other specified body structures (5) SIMBA (acute kidney injury) ICD Code: N17.9 - Acute kidney failure, unspecified (6) Diabetes ICD Code: E11.9 - Type 2 diabetes mellitus without complications (7) Severe sepsis ICD Code: A41.9 - Sepsis, unspecified organism; R65.20 - Severe sepsis without septic shock Assessment and Plan 62-year-old white female admitted from a long-term facility for sepsis and acute hypoxic respiratory failure. Underwent intubated course in ICU, was eventually extubated. Had a gastrostomy tube placed 11/18. Acute kidney injury. -Improving ESBL E. coli UTI Complex UTI Nephrolithiasis with right hydronephrosis Status post ureteral stent placement 11/21 Status post right nephrostomy tube ID specialist and urology following. White count improving. No fevers however. Continue to monitor. Continue antibiotics and antifungals as per infectious disease recommendations. Appreciate assistance. Repeat urine cultures with Pippa. Patient continues on antifungals. Renal ultrasound revealed atrophic left kidney with right hydronephrosis with pigtail in place/nephrostomy tube Has decreased UOP urology consulted recommends IR for eval Hypertension Continue amlodipine avoiding amlodipine if bilateral lower extremity edema. Hypernatremia 200 mL every 6 hour free water flushes via PEG Bilateral lower extremity edema BNP within normal limits. Appears to be slightly improved today. Monitor off of amlodipine. Pressure ulcer left elbow. Consult wound care appreciated. yamileth ordered. GI Currently on lansoprazole 30 mg by tube daily. On omeprazole 20 mg daily at home Docusate sodium 100 mg twice daily, senna 8.8 mg twice daily Bipolar/schizophrenia History of right MCA CVA with left-sided weakness Chronic narcotic/opioid use with oxycodone/acetaminophen Continue Risperdal 0.5 mg by tube 3 times daily. Continue along with sertraline 50 mg p.o. daily Continue gabapentin 100 mg twice daily Avoid narcotics/sedating agents if possible Hyperlipidemia Coronary artery disease with stents to the RCA and LAD Continue aspirin 81 mg p.o. daily 2D echocardiogram 08/15 revealed EF 60-65%. No regional wall motion abnormality. Mild TR. Pulmonary arterial pressure 37 mmHg Continue metoprolol tartrate 25 mg p.o. twice daily. Hydralazine 50 3 times daily. Diabetes mellitus type 2 Holding insulin detemir 7 units at night. Sliding-scale insulin with Novolin R with Accu-Cheks every 6 hours to maintain euglycemia/low regimen Sacral decubitus/heel ulcers Healing well Wound care evaluation and treat Prophylaxis GI -lansoprazole Discharge Planning The patien tis a candidate for hospice at [facility]. Awaiting for son/ family to call back and engage in meeting with hospice. However unsuccessful attempts were made at contacting son. CM is also ff for DC plan Problem Qualifiers (1) Diabetes: Qualified Codes: E11.65 - Type 2 diabetes mellitus with hyperglycemia; Z79.4 - correction (current) use of insulin Dafne Louis MD Nov 30, 2017 13:59
[2017-11-30] MEDS ORDERED: ASPI81 CHEW (14:46)
[2017-11-30] MEDS ORDERED: ATOR40TA16 PO (14:46)
[2017-11-30] MEDS ORDERED: HYDR-3799 G-TUBE (14:46)
[2017-11-30] MEDS ORDERED: ISOS20TA2 PO (14:46)
[2017-11-30] MEDS ORDERED: LEVEMIR SQ (14:46)
[2017-11-30] MEDS ORDERED: PERC5TAB12 PO (14:46)
--- NOTE | 2017-11-30 14:46 | HHI.DS ---
Discharge Summary Admission Date November 10, 2017 at 11:18 Discharge Date: Nov 30, 2017 Admitting Diagnosis sepsis, multiorgan failure, uti (1) UTI (urinary tract infection) ICD Code: N39.0 - Urinary tract infection, site not specified (2) Encephalopathy acute ICD Code: G93.40 - Encephalopathy, unspecified (3) Leukocytosis ICD Code: D72.829 - Elevated white blood cell count, unspecified (4) Abnormal CT scan ICD Code: R93.8 - Abnormal findings on diagnostic imaging of other specified body structures (5) SIMBA (acute kidney injury) ICD Code: N17.9 - Acute kidney failure, unspecified (6) Diabetes ICD Code: E11.9 - Type 2 diabetes mellitus without complications (7) Severe sepsis ICD Code: A41.9 - Sepsis, unspecified organism; R65.20 - Severe sepsis without septic shock Procedures intubation/extubation EGD with biopsy and PEG placement Brief History - From Admission This is a 59-year-old female with past medical history as stated below and history of CVA who presents to [facility]. The patient is a resident at [facility]. The patient is there due to a CVA in addition to a recent septic episode. Please note that the patient is lethargic and unable to provide any type of history. History is obtained from medical records and ED physicians documentation and verbal report. Apparently the patient was encountered this morning by personnel with gurgling respirations, tachypnea and oxygen saturation in the 50s. EMS reported Temp of 102.9, the patient was placed on a nonrebreather mask and her oxygen saturation increased to 100%. There was reported a strong odor of urine by EMS. CBC/BMP: 11/29/17 0354 11/29/17 0354 Significant Findings Laboratory Tests Test 11/29/17 03:54 Red Blood Count 3.10 MIL/MM3 (4.00-5.30) Hemoglobin 8.1 GM/DL (11.6-15.3) Hematocrit 25.3 % (35.0-46.0) Mean Corpuscular Hemoglobin 26.3 PG (27.0-34.0) Red Cell Distribution Width 19.8 % (11.6-17.2) Eosinophils (%) (Auto) 4.2 % (0.0-4.0) Blood Urea Nitrogen 26 MG/DL (7-18) Creatinine 1.28 MG/DL (0.50-1.00) Random Glucose 130 MG/DL (74-106) Albumin 2.4 GM/DL (3.4-5.0) Sodium Level 146 MEQ/L (136-145) Chloride Level 110 MEQ/L (98-107) Estimat Glomerular Filtration Rate 42 ML/MIN (>89) Imaging Last Impressions Lower Extremity Ultrasound 11/28/17 0000 Signed Impressions: CONCLUSION: 1. Right lower extremity is unremarkable with no evidence of deep venous throm bosis. 2. Suboptimal limited visualization of the left leg. The left popliteal vein p eroneal veins could not be visualized. There was no visualized deep venous thro mbosis. Abdomen X-Ray 11/28/17 0000 Signed Impressions: CONCLUSION: Mild ileus. Right ureteral stents as above. Upper Extremity Ultrasound 11/27/17 0000 Signed Impressions: CONCLUSION: 1. 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 Drainage Catheter Insertion 11/21/17 0000 Signed Impressions: CONCLUSION: 1. Uncomplicated nephroureteral stent placement as above. Approximately 200 cc of purulent appearing urine was immediately removed from the renal collecting system. Sample was collected for Gram stain and C&S. Findings were also discussed with Dr. Ascencio. Ideally, would need to remove the e xisting ureteral stent given concern for colonization. However, there are signi ficant calcifications along the proximal and distal portions of the stent and t he stent is likely adhered. This along with inferior pole calyx access will juani e antegrade retrieval attempt very challenging and likely not possible. Chest X-Ray 11/19/17 0600 Signed Impressions: Service Date/Time: Sunday, November 19, 2017 03:07 - CONCLUSION: 1. Interval removal of nasogastric tube. 2. The lungs remain clear. Rosales Jay MD Abdomen Ultrasound 11/14/17 0000 Signed Impressions: Service Date/Time: October 07:56 - CONCLUSION: 1. There is elevated velocity within the proximal SMA which raises the possibility of a focal stenosis. 2. The vessels imaged and appear to be patent. Yo Joiner MD Abdomen/Pelvis CT 11/10/17 0601 Signed Impressions: Service Date/Time: Friday, November 10, 2017 07:44 - CONCLUSION: 1.Focal abnormal circumferential wall thickening involving the descending colon at the level of the hepatic flexure with significant adjacent fluid tracking within the right paracardiac color. Given the extensive atherosclerosis and focal finding concern is for possible infarct. Infection is also within the differential diagnosis. 2. Interval placement of a right-sided percutaneous nephrostomy tube. Stable appearance of the right kidney with multiple renal stones. Josefa Hair MD Head CT 11/10/17 0000 Signed Impressions: Service Date/Time: Friday, November 10, 2017 11:22 - CONCLUSION: Stable exam. No acute abnormality.. Josefa Hair MD PE at Discharge GENERAL: The patient is bedridden, chronically ill. CARDIOVASCULAR: Regular rate and rhythm without murmurs, gallops, or rubs. RESPIRATORY: Shortness of breath, in acute distress, labored breathing, positive rhonchi, some accessory muscle use. GASTROINTESTINAL: Abdomen soft, non-tender, distended. Some pain on palpation at the PEG tube site, PEG tube in place. MUSCULOSKELETAL: No cyanosis, or edema. NEURO: Slurred speech, very limited conversive vocabulary, left wrist is chronically clenched. Pt update on day of discharge In bed. Pleasant time. Awaiting transport to group home facility with hospice. No complaints at this time. Hospital Course 62-year-old white female admitted from a long-term facility for sepsis and acute hypoxic respiratory failure. Underwent intubated course in ICU, was eventually extubated. Had a gastrostomy tube placed 11/18. Acute kidney injury. -Improving ESBL E. coli UTI Complex UTI Nephrolithiasis with right hydronephrosis Status post ureteral stent placement 11/21 Status post right nephrostomy tube ID specialist and urology following. White count improving. No fevers however. Continue to monitor. Continue antibiotics and antifungals as per infectious disease recommendations. Appreciate assistance. Repeat urine cultures with Pippa. Patient continues on antifungals. Renal ultrasound revealed atrophic left kidney with right hydronephrosis with pigtail in place/nephrostomy tube Has decreased UOP urology consulted recommends IR for eval Hypertension Continue amlodipine avoiding amlodipine if bilateral lower extremity edema. Hypernatremia 200 mL every 6 hour free water flushes via PEG Bilateral lower extremity edema BNP within normal limits. Appears to be slightly improved today. Monitor off of amlodipine. Pressure ulcer left elbow. Consult wound care appreciated. yamileth ordered. GI Currently on lansoprazole 30 mg by tube daily. On omeprazole 20 mg daily at home Docusate sodium 100 mg twice daily, senna 8.8 mg twice daily Bipolar/schizophrenia History of right MCA CVA with left-sided weakness Chronic narcotic/opioid use with oxycodone/acetaminophen Continue Risperdal 0.5 mg by tube 3 times daily. Continue along with sertraline 50 mg p.o. daily Continue gabapentin 100 mg twice daily Avoid narcotics/sedating agents if possible Hyperlipidemia Coronary artery disease with stents to the RCA and LAD Continue aspirin 81 mg p.o. daily 2D echocardiogram 08/15 revealed EF 60-65%. No regional wall motion abnormality. Mild TR. Pulmonary arterial pressure 37 mmHg Continue metoprolol tartrate 25 mg p.o. twice daily. Hydralazine 50 3 times daily. Diabetes mellitus type 2 Holding insulin detemir 7 units at night. Sliding-scale insulin with Novolin R with Accu-Cheks every 6 hours to maintain euglycemia/low regimen Sacral decubitus/heel ulcers Healing well Wound care evaluation and treat Prophylaxis GI -lansoprazole Patient is a candidate for hospice. Patient and son decided for SNF with hospice. Patient is discharged to SNF/hospice in stable condition expect deterioration. Pt Condition on Discharge: Deteriorating Discharge Disposition: Hospice/Med Facility Discharge Time: > 30 minutes Discharge Instructions DIET: Follow Instructions for: On Tube Feeding Additional Diet Instructions: Glucerna 1.5 goal of 50 Activities you can perform: Regular-No Restrictions Follow up Referrals: PCP Follow-up - 2-3 Days New Medications: Aspirin (Tgt Aspirin) 81 Mg Chw 81 MG CHEW DAILY for Blood Clot Prevention, #30 EA Atorvastatin (Atorvastatin) 40 Mg Tab 40 MG PO HS for Cholesterol Management, #30 TAB Hydralazine HCl (Hydralazine HCl) 25 Mg Tablet 100 MG G-TUBE Q8HR for Blood Pressure Management, #90 TAB Insulin Detemir Inj (Levemir Inj) 1,000 unit/ 10 ML Vial 5 UNITS SQ Q12HR for Blood Sugar Management, #60 INJECTION Do not mix with any other Insulin. Isosorbide Dinitrate (Isosorbide Dinitrate) 20 Mg Tab 20 MG PO Q8HR for Blood Pressure Management, #30 TAB Continued Medications: Acetaminophen (Tylenol) 325 Mg Tab 650 MG PO Q6H PRN for PAIN/DISCOMFORT/TEMP >101, TAB 0 Refills Bisacodyl Supp (Bisacodyl Supp) 10 Mg Supp 10 MG RECTAL DAILY PRN for CONSTIPATION, SUPP 0 Refills Gabapentin (Gabapentin) 100 Mg Cap 100 MG PO BID for Neuropathy Pain, #60 CAP 0 Refills Mag Hydrox/Aluminum Hyd/Simeth (Maalox Maximum Strength Susp) 400 Mg-400 Mg-40 Mg/5 Ml Oral.susp Magnesium Hydroxide Liq (Milk of Magnesia Liq) 400 Mg/5 Ml Susp 30 ML PO DAILY PRN for INDIGESTION OR UPSET STOMACH, #1 BOTTLE 0 Refills Metoprolol Tartrate (Metoprolol Tartrate) 25 Mg Tab 25 MG PO BID, #60 TAB 0 Refills Multiple Vitamins W/ Minerals (Thera M Plus) 1 Tab 1 TAB PO DAILY for Nutritional Supplement, TAB 0 Refills Nut.tx.gluc.intoler,Lac-Fr,Soy (Glytrol) 1,000 Ml Liquid 60 ML PO TID for Nutritional Supplement Nut.tx.gluc.intoler,Lac-Fr,Soy (Glytrol) 1,000 Ml Liquid 3 CAN PO DAILY Omeprazole (Omeprazole) 20 Mg Tab 20 MG PO DAILY, #30 TAB 0 Refills Oxycodone-Acetaminophen (Percocet) 5-325 mg Tab 1-2 TAB PO Q6H PRN for MILD TO SEVERE PAIN, #20 TAB 0 Refills (This prescription has been renewed) Risperidone (Risperidone) 0.5 Mg Tab 0.5 MG PO TID, #30 TAB 0 Refills Sennosides (Senna-Tabs) 8.6 Mg Tab 8.6 MG PO BID for Constipation, #30 TAB 0 Refills Sertraline (Sertraline) 50 Mg Tab 50 MG PO DAILY, #30 TAB 0 Refills Discontinued Medications: Hydralazine HCl (Hydralazine HCl) 50 Mg Tablet 50 MG PO TID Insulin Detemir Inj (Levemir Inj) 1,000 unit/ 10 ML Vial 7 UNITS SQ HS for Blood Sugar Management, VIAL 0 Refills Do not mix with any other Insulin. Dafne Louis MD Nov 30, 2017 14:46
[2017-11-30] MEDS: ATORVASTATIN 40 MG TAB PO SCH (21:50)
[2017-12-01] VITALS: BP 142/70; PULSE 67; RESP 18; TEMP 97.8; O2SAT 99
[2017-12-01] MEDS: INSULIN ASPART SUPPLEMENTAL SCALE SQ SCH ×3 (01:59→11:36)
[2017-12-01] MEDS: FREE WATER G-TUBE SCH ×5 (01:59→15:15)
[2017-12-01 04:00] VITALS: BP 145/77; PULSE 79; RESP 18; TEMP 97.1; O2SAT 99
[2017-12-01] MEDS: ISOSORBIDE DINITRATE 20 MG TAB PO SCH ×2 (06:12→13:04)
[2017-12-01] MEDS: hydrALAZINE HCL 25 MG TAB G-TUBE SCH ×2 (06:12→13:04)
[2017-12-01 08:00] VITALS: BP 128/59; PULSE 77; RESP 17; TEMP 98.3; O2SAT 97
[2017-12-01] MEDS: CHLORHEXIDINE 0.12% (ORAL KIT) 15 ML CUP MT SCH (08:00)
[2017-12-01] MEDS: LANSOPRAZOLE SOLUTAB 30 MG TAB NG SCH (08:32)
[2017-12-01] MEDS: risperiDONE 0.5 MG TAB PO SCH ×2 (08:32→12:20)
[2017-12-01] MEDS: METOPROLOL TARTRATE 25 MG TAB PO SCH (08:32)
[2017-12-01] MEDS: GABAPENTIN 100 MG CAP PO SCH (08:32)
[2017-12-01] MEDS: POLYETHYLENE GLYCOL 17 GM PKG PO SCH (08:32)
[2017-12-01] MEDS: ARTIFICIAL TEARS OPTH SOLN 15 ML BTL EACH EYE SCH (08:32)
[2017-12-01] MEDS: LACTULOSE SYRUP 20 GM/30 ML CUP PO SCH (08:32)
[2017-12-01] MEDS: ASPIRIN 81 MG CHEW TAB CHEW SCH (08:32)
[2017-12-01] MEDS: DOCUSATE SODIUM 100 MG/10 ML UDC PO SCH (08:32)
[2017-12-01] MEDS: SODIUM CHLORIDE 0.9% FLUSH 10 ML FLUSH IV FLUSH SCH (08:33)
[2017-12-01] MEDS: SENNOSIDES SYRUP 8.8 MG/5 ML CUP PO SCH (08:33)
[2017-12-01] MEDS: INSULIN DETEMIR 100 UNITS/ML VIAL SQ SCH (08:33)
[2017-12-01] MEDS: COLLAGENASE OINT 30 GM TUBE TOPICAL SCH (08:33)
[2017-12-01] MEDS: MUPIROCIN 2% OINT 1 APPLIC/GM SYR EACH NARE SCH (08:33)
[2017-12-01] MEDS: SERTRALINE HCL 50 MG TAB PO SCH (08:38)
[2017-12-01 12:00] VITALS: BP 140/66; PULSE 71; RESP 18; TEMP 98.6; O2SAT 95
--- NOTE | 2017-12-05 12:46 | PQ ---
Physician Query Response Document PATIENT: LEELEE ESTRADA : 1955 ADMIT DATE: 11/10/2017 11:18 AM DISCH DATE: 12/01/2017 3:35 PM RESPONDING PROVIDER #: [email or web address] QUERY TEXT: Sepsis Query Based on your medical judgement, can you further clarify the followin. Sepsis 2. Sepsis due to nephrostomy tube 3. Unknown 4. Undetermined The patient's Clinical Indicators include: Patient admitted with sepsis. Three days prior to admission patients right sided nephrostomy tube re placed. Query created by: Nina Vasquez on 12/02/2017 11:06 AM RESPONSE TEXT: Sepsis 2/2 complicated UTI Pseudomonas aeruginosa, patient has nephrostomy tube placed, and had urete ral stent placed Electronically signed by: Dafne Louis MD 12/05/2017 12:42 PM
== END 2017-12-01 15:35 | disposition hospice, inpatient (51) | DRG 871 ==
LOC: NEPE 05:53 → NEDH 11:18 → N04B 15:18 → N03B 11-13 16:52 → N04A 11-14 17:38 → N03A 11-16 07:10 → N07A 11-29 17:54
PROVIDERS: ADMIT Hospitalist; ATTEND Hospitalist
PROC: 30233N1 Transfusion of Nonautologous Red Blood Cells into Peripheral Vein, Percutaneous Approach (ICD-10-PCS; 2017-11-10)
PROC: 0DBM8ZX Excision of Descending Colon, Via Natural or Artificial Opening Endoscopic, Diagnostic (ICD-10-PCS; 2017-11-12)
PROC: 5A09457 Assistance with Respiratory Ventilation, 24-96 Consecutive Hours, Continuous Positive Airway Pressure (ICD-10-PCS; 2017-11-13)
PROC: 5A1945Z Respiratory Ventilation, 24-96 Consecutive Hours (ICD-10-PCS; principal; 2017-11-16)
PROC: 0BH17EZ Insertion of Endotracheal Airway into Trachea, Via Natural or Artificial Opening (ICD-10-PCS; 2017-11-16)
PROC: 0DB98ZX Excision of Duodenum, Via Natural or Artificial Opening Endoscopic, Diagnostic (ICD-10-PCS; 2017-11-18)
PROC: 0DB78ZX Excision of Stomach, Pylorus, Via Natural or Artificial Opening Endoscopic, Diagnostic (ICD-10-PCS; 2017-11-18)
PROC: 0DH63UZ Insertion of Feeding Device into Stomach, Percutaneous Approach (ICD-10-PCS; 2017-11-18 16:55)
PROC: 0T763DZ Dilation of Right Ureter with Intraluminal Device, Percutaneous Approach (ICD-10-PCS; 2017-11-21)
DX: A41.9 Sepsis, unspecified organism (principal); G93.41 Metabolic encephalopathy; J69.0 Pneumonitis due to inhalation of food and vomit; J96.01 Acute respiratory failure with hypoxia; J96.02 Acute respiratory failure with hypercapnia; E87.2 Acidosis; N17.9 Acute kidney failure, unspecified; L89.152 Pressure ulcer of sacral region, stage 2; I82.621 Acute embolism and thrombosis of deep veins of right upper extremity; N18.3 Chronic kidney disease, stage 3 (moderate); B37.49 Other urogenital candidiasis; J98.11 Atelectasis; I69.354 Hemiplegia and hemiparesis following cerebral infarction affecting left non-dominant side; N39.0 Urinary tract infection, site not specified; E87.0 Hyperosmolality and hypernatremia; N13.2 Hydronephrosis with renal and ureteral calculous obstruction; L97.409 Non-pressure chronic ulcer of unspecified heel and midfoot with unspecified severity; K56.7 Ileus, unspecified; R13.11 Dysphagia, oral phase; E11.22 Type 2 diabetes mellitus with diabetic chronic kidney disease; R65.20 Severe sepsis without septic shock; E11.65 Type 2 diabetes mellitus with hyperglycemia; E78.5 Hyperlipidemia, unspecified; I25.10 Atherosclerotic heart disease of native coronary artery without angina pectoris; M19.90 Unspecified osteoarthritis, unspecified site; I12.9 Hypertensive chronic kidney disease with stage 1 through stage 4 chronic kidney disease, or unspecified chronic kidney disease; I65.29 Occlusion and stenosis of unspecified carotid artery; K52.9 Noninfective gastroenteritis and colitis, unspecified; I48.91 Unspecified atrial fibrillation; F31.9 Bipolar disorder, unspecified; K57.30 Diverticulosis of large intestine without perforation or abscess without bleeding; K64.4 Residual hemorrhoidal skin tags; K64.8 Other hemorrhoids; E11.621 Type 2 diabetes mellitus with foot ulcer; K21.9 Gastro-esophageal reflux disease without esophagitis; M21.371 Foot drop, right foot; M21.372 Foot drop, left foot; E11.59 Type 2 diabetes mellitus with other circulatory complications; F20.9 Schizophrenia, unspecified; D50.9 Iron deficiency anemia, unspecified; B96.20 Unspecified Escherichia coli [E. coli] as the cause of diseases classified elsewhere; Z16.12 Extended spectrum beta lactamase (ESBL) resistance; E87.70 Fluid overload, unspecified; L89.029 Pressure ulcer of left elbow, unspecified stage; E83.39 Other disorders of phosphorus metabolism; E87.6 Hypokalemia; G89.29 Other chronic pain; K29.60 Other gastritis without bleeding; B96.5 Pseudomonas (aeruginosa) (mallei) (pseudomallei) as the cause of diseases classified elsewhere; Z16.20 Resistance to unspecified antibiotic; B95.2 Enterococcus as the cause of diseases classified elsewhere; Z51.5 Encounter for palliative care; Z79.82 Long term (current) use of aspirin; Z79.899 Other long term (current) drug therapy; Z79.4 Long term (current) use of insulin; Z87.440 Personal history of urinary (tract) infections; Z87.442 Personal history of urinary calculi; Z86.14 Personal history of Methicillin resistant Staphylococcus aureus infection; Z95.5 Presence of coronary angioplasty implant and graft; Z87.891 Personal history of nicotine dependence; Z82.49 Family history of ischemic heart disease and other diseases of the circulatory system; Z78.1 Physical restraint status; Z93.6 Other artificial openings of urinary tract status
CPT/HCPCS: 31500; 36430; 36600; 50387; 70450; 71045; 74018; 74176; 76937; 80048; 80053; 80061; 80069; 81001; 82140; 82150; 82533; 82550; 82570; 82607; 82728; 82746; 82805; 82948; 83010; 83036; 83540; 83550; 83605; 83615; 83690; 83735; 83880; 84100; 84132; 84300; 84443; 84484; 85007; 85025; 85027; 85610; 85730; 86850; 86900; 86901; 86920; 87040; 87077; 87086; 87186; 87205; 87641; 88305; 88312; 88313; 93005; 93306; 93970; 93971; 93975; 94002; 94003; 94640; 94664; 94667; 96365; 96366; 99152; C1729; C1769; J0360; J0695; J1100; J1450; J1815; J1940; J2250; J2270; J2543; J2930; J3010; J3475; J3480; J7030; J7050; P9016; Q9967

== ENCOUNTER 2018-01-08 17:06 | Observation (INO) ==
--- NOTE | 2018-01-08 18:44 | ED ---
HPI General Chief complaint: Loop Tender Problem Stated complaint: Phy Sent/Evac Time Seen by Provider: 01/08/18 17:55 Source: EMS, RN notes reviewed and old records reviewed Mode of arrival: EMS Limitations: altered mental status History of Present Illness HPI narrative: This 62-year-old woman who presents to the emergency department for G-tube replacement. She is a long-term resident sent to a assisted following a stroke. She had a recent history of urosepsis related to an atrophic left kidney, right kidney with a ureteral stent that appeared to be calcified in the place with obstruction. Nephrostomy tube was placed several months ago. She has had the nephrostomy tube and since then. She was sent from the assisted because he got pulled out today. No other history is available. Related Data Home Medications Medication Instructions Recorded Confirmed aspirin [Aspirin Low Dose] 81 mg FEEDING TUBE DAILY 01/08/18 01/08/18 clonidine HCl [Catapres] 0.1 mg FEEDING TUBE TID PRN 01/08/18 01/08/18 gabapentin 200 mg FEEDING TUBE TID 01/08/18 01/08/18 hydralazine 100 mg FEEDING TUBE Q8HR 01/08/18 01/08/18 insulin detemir U-100 [Levemir 5 unit SUB-Q Q12HR 01/08/18 01/08/18 U-100 Insulin] isosorbide dinitrate 20 mg FEEDING TUBE Q8HR 01/08/18 01/08/18 lorazepam [Ativan] 0.5 mg FEEDING TUBE Q4HR PRN 01/08/18 01/08/18 magnesium hydroxide [Milk of 30 ml FEEDING TUBE Q4HR PRN 01/08/18 01/08/18 Magnesia] metoprolol tartrate 25 mg FEEDING TUBE BID 01/08/18 01/08/18 morphine concentrate 5 mg FEEDING TUBE Q3H PRN 01/08/18 01/08/18 multivitamin,pw-[id number]-sfdelltr 1 tab FEEDING TUBE DAILY 01/08/18 01/08/18 [Thera-M] omeprazole 20 mg FEEDING TUBE DAILY 01/08/18 01/08/18 oxycodone-acetaminophen [Percocet] 1 tab FEEDING TUBE Q4H 01/08/18 01/08/18 risperidone [Risperdal] 0.5 mg FEEDING TUBE Q8HR 01/08/18 01/08/18 sennosides [senna] 8.6 mg FEEDING TUBE BID 01/08/18 01/08/18 sertraline [Zoloft] 50 mg FEEDING TUBE DAILY 01/08/18 01/08/18 Allergies Allergy/AdvReac Type Severity Reaction Status Date / Time *MDRO Multi-Drug Resistant AdvReac Unknown Uncoded 11/10/17 06:21 Organism Review of Systems ROS Unobtainable unobtainable due to mental condition [facility] Medical History Medical History Anemia (Acute) CVA (cerebral vascular accident) (Acute) Diabetes (Acute) HTN (hypertension) (Acute) Social History Social History Recent Travel in [facility] within the Last 8 Weeks: No Recent Out of Country Travel within the Last 8 Weeks: No Exam Narrative Exam Narrative: GENERAL: 62-year-old woman, bedbound, moaning, nonverbal. SKIN: Focused skin assessment warm/dry. HEAD: Atraumatic. Normocephalic. EYES: Pupils equal and round. No scleral icterus. No injection or drainage. ENT: No nasal bleeding or discharge. Mucous membranes pink and moist. NECK: Trachea midline. No JVD. CARDIOVASCULAR: Regular rate and rhythm. No murmur appreciated. RESPIRATORY: No accessory muscle use. Clear to auscultation. Breath sounds equal bilaterally. GASTROINTESTINAL: Abdomen is obese soft. Right nephrostomy tube site in the low right flank, no drainage. Tract still visible. MUSCULOSKELETAL: No obvious deformities. No edema. NEUROLOGICAL: Minimally alert, moans, no leg. Course Initial Documented Vital Signs Temperature 98.3 F 01/08/18 17:39 Pulse Rate 65 01/08/18 17:39 Respiratory Rate 16 01/08/18 17:39 Blood Pressure 179/89 H 01/08/18 17:39 Pulse Oximetry 98 01/08/18 17:39 Last Documented Vital Signs Temperature 98.3 F 01/08/18 17:39 Pulse Rate 65 01/08/18 17:39 Respiratory Rate 16 01/08/18 17:39 Blood Pressure 179/89 H 01/08/18 17:39 Pulse Oximetry 98 07/11/18 17:39 Medical Decision Making MDM Narrative Medical decision making narrative: 62-year-old woman, here for nephrostomy tube replacement. History of MDR UTI from ureteral obstruction. I spoke with IR. Will replace tomorrow. Will admit. Basic labs. Lab Data Lab results reviewed: Yes I reviewed the patient's lab results. Result diagrams: 01/08/18 18:41 01/08/18 18:41 Lab Results 01/08/18 01/08/18 01/08/18 Range/Units 18:41 18:41 18:41 WBC 9.3 (4.0-11.0) th/mm3 RBC 4.38 (4.00-5.30) mil/mm3 Hgb 11.5 L (11.6-15.3) gm/dL Hct 35.7 (35.0-46.0) % MCV 81.6 (80.0-100.0) fL MCH 26.2 L (27.0-34.0) pg MCHC 32.1 (32.0-36.0) % RDW 17.3 H (11.6-17.2) % Plt Count 195 (150-450) th/mm3 MPV 9.1 (7.0-11.0) fL Neut % (Auto) 67.8 (16.0-70.0) % Lymph % (Auto) 23.0 (9.0-44.0) % [place] % (Auto) 4.9 (0.0-8.0) % Eos % (Auto) 3.7 (0.0-4.0) % Baso % (Auto) 0.6 (0.0-2.0) % Neut # (Auto) 6.3 (1.8-7.7) th/mm3 Lymph # (Auto) 2.1 (1.0-4.8) th/mm3 [place] # (Auto) 0.5 (0.0-0.9) th/mm3 Eos # (Auto) 0.4 (0.0-0.4) th/mm3 Baso # (Auto) 0.1 (0.0-0.2) th/mm3 WBC Differential . Differential Comment Auto diff final PT 10.2 (9.8-11.6) sec INR 1.0 Ratio APTT 27.5 (24.3-30.1) sec Sodium 140 (136-145) meq/L Potassium 3.8 (3.5-5.1) meq/L Chloride 100 (98-107) meq/L Carbon Dioxide 30.9 (21.0-32.0) meq/L Anion Gap 9 (5-15) meq/L BUN 45 H (7-18) mg/dL Creatinine 1.59 H (0.50-1.00) mg/dL Estimated GFR 33 L (>89) mL/min Random Glucose 95 (74-106) mg/dL Calcium 10.6 H (8.5-10.1) mg/dL Discharge Plan Discharge Disposition Patient Disposition: 30 Still Patient Physicians Team ED Provider: Tee Roberts Primary Care Provider: Nii Stone V Rxs /Orders / Referrals /Forms Prescriptions: No Action sennosides [senna] 8.6 mg Tablet 8.6 mg Feeding Tube BID RF: 0 clonidine HCl [Catapres] 0.1 mg Tablet 0.1 mg Feeding Tube TID PRN (Reason: SBP >160 or DPB >100) RF: 0 aspirin [Aspirin Low Dose] 81 mg Tablet,Delayed Release (Dr/Ec) 81 mg Feeding Tube DAILY RF: 0 lorazepam [Ativan] 0.5 mg Tablet 0.5 mg Feeding Tube Q4HR PRN (Reason: Anxiety/Shortness of Breath) RF: 0 magnesium hydroxide [Milk of Magnesia] 400 mg/5 mL Suspension 30 ml Feeding Tube Q4HR PRN (Reason: Constipation) RF: 0 oxycodone-acetaminophen [Percocet] 10-325 mg Tablet 1 tab Feeding Tube Q4H RF: 0 hydralazine 100 mg Tablet 100 mg Feeding Tube Q8HR RF: 0 isosorbide dinitrate 20 mg Tablet 20 mg Feeding Tube Q8HR RF: 0 omeprazole 20 mg Capsule,Delayed Release(Dr/Ec) 20 mg Feeding Tube DAILY RF: 0 gabapentin 100 mg Capsule 200 mg Feeding Tube TID RF: 0 sertraline [Zoloft] 50 mg Tablet 50 mg Feeding Tube DAILY RF: 0 risperidone [Risperdal] 0.5 mg Tablet 0.5 mg Feeding Tube Q8HR RF: 0 multivitamin,qx-moak-jdhzqxxj [Thera-M] Tablet 1 tab Feeding Tube DAILY RF: 0 metoprolol tartrate 25 mg Tablet 25 mg Feeding Tube BID RF: 0 morphine concentrate 20 mg/mL Syringe 5 mg Feeding Tube Q3H PRN (Reason: Pain) RF: 0 insulin detemir U-100 [Levemir U-100 Insulin] 100 unit/mL Solution 5 unit SUB-Q Q12HR RF: 0 Status ED Status: Pending Admission
[2018-01-08 19:00] LABS: Baso # (Auto) 0.1 th/mm3 (0.0-0.2); Baso % (Auto) 0.6 % (0.0-2.0); Eos # (Auto) 0.4 th/mm3 (0.0-0.4); Eos % (Auto) 3.7 % (0.0-4.0); Hematocrit 35.7 % (35.0-46.0); Hemoglobin 11.5 gm/dL (11.6-15.3); Lymph # (Auto) 2.1 th/mm3 (1.0-4.8); Mean Corpuscular HGB Conc 32.1 % (32.0-36.0); Mean Corpuscular Hemoglobin 26.2 pg (27.0-34.0); Mean Corpuscular Volume 81.6 fL (80.0-100.0); Mean Platelet Volume 9.1 fL (7.0-11.0); Mono # (Auto) 0.5 th/mm3 (0.0-0.9); Mono % (Auto) 4.9 % (0.0-8.0); Neut # (Auto) 6.3 th/mm3 (1.8-7.7); Neut % (Auto) 67.8 % (16.0-70.0); Platelet Count 195 th/mm3 (150-450); Red Blood Count 4.38 mil/mm3 (4.00-5.30); Red Cell Distribution Width 17.3 % (11.6-17.2); White Blood Count 9.3 th/mm3 (4.0-11.0)
[2018-01-08 19:11] LABS: Activated Partial Thrombo Time 27.5 sec (24.3-30.1); Prothrombin Time 10.2 sec (9.8-11.6)
[2018-01-08 19:19] LABS: Calcium 10.6 mg/dL (8.5-10.1); Carbon Dioxide 30.9 meq/L (21.0-32.0); Potassium 3.8 meq/L (3.5-5.1)
[2018-01-08] MEDS ORDERED: Iohexol 350 MG/ML 50 ML Vial (for Rad Diag) IVCONTRAST ONE (19:27)
[2018-01-08] MEDS ORDERED: LORazepam 0.5 MG Tablet G-TUBE PRN (21:44)
[2018-01-08] MEDS ORDERED: cloNIDine Susp (NICU) 20 MCG/ML 30 ML Bottle G-TUBE PRN (21:44)
[2018-01-08] MEDS: oxyCODONE/Acetaminophen 10/325 Tablet G-TUBE SCH (22:00)
[2018-01-08] MEDS ORDERED: Temazepam 15 MG Capsule PO PRN (23:56)
[2018-01-08] MEDS ORDERED: Bisacodyl 10 MG Supp RECTAL PRN (23:56)
[2018-01-09] MEDS ORDERED: Dextrose 50% in Water 50 ML Vial IV.PUSH PRN
--- NOTE | 2018-01-09 00:01 | P.HP ---
History of Present Illness Service: [facility] Primary Care Physician: Nii Stone MD Chief Complaint: double backer malfunction History of Present Illness: 62-year-old female with a past medical history significant for previous CVA, diabetes, GERD, hypertension and nephrostomy tube secondary to calcified ureteral stent with obstruction [facility] emergency department [facility] after her nephrostomy tube became dislodged. The patient has residual deficits from her previous CVA and cannot answer my questions. Per emergency department documentation there is no additional history. Inpatient Certification: I certify that the inpatient services were ordered in accordance with Medicare regulations governing the order. This includes certification that hospital inpatient services are reasonable and necessary and in the case of services not specified as inpatient-only under 42 CFR 419.22(n), that they are appropriately provided as inpatient services in accordance to with the 2-midnight benchmark under 43 CFR 412.3(e) Review of Systems All other systems reviewed negative except as stated in HPI [facility] - History History Provided By: Medical Record - Medical History Medical History: Medical History (Last Updated 01/08/18 @ 21:48 by Krystle Obrien RN) Altered mental status Anemia CVA (cerebral vascular accident) CVA (cerebral vascular accident) Chronic pain Contracture of muscle, left upper arm Diabetes GERD (gastroesophageal reflux disease) HTN (hypertension) History of frequent urinary tract infections Kidney calculus Muscle weakness Neurogenic bladder - Tobacco History Smoking Status: Unknown if ever smoked - Alcohol History How Often Do You Have a Drink Containing Alcohol: Unable to Obtain - Substance Use History Substance History: Unable to Obtain - Travel History Recent Travel in the [place] Within the Last 8 Weeks: No Recent Travel Out of the Country Within the Last 8 Weeks: No - Immunization History Tetanus Immunization: Unable to Assess Hx Influenza Vaccine This Season: Unable to Assess Medications and Allergies Active Medications: Active Medications Clonidine HCl (Clonidine (Nicu) 20 Mcg/Ml Liq) 100 mcg G-TUBE TID PRN PRN Reason: SBP >160 or DPB >100 Gabapentin (Neurontin) 200 mg G-TUBE TID CLAUDE Hydralazine HCl (Apresoline) 100 mg G-TUBE Q8HR [facility] Last Admin: 01/08/18 22:16 Dose: 100 mg Isosorbide Dinitrate (Isordil) 20 mg G-TUBE Q8HR CLAUDE Last Admin: 01/08/18 22:16 Dose: 20 mg Lorazepam (Ativan) 0.5 mg G-TUBE Q4HR PRN PRN Reason: Anxiety/Shortness of Breath Metoprolol Tartrate (Lopressor) 25 mg G-TUBE BID [facility] Oxycodone/Acetaminophen (Percocet 10/325 Mg) 1 tab G-TUBE Q4H [facility] Last Admin: 01/08/18 22:00 Dose: 1 tab Risperidone (Risperdal) 0.5 mg G-TUBE Q8HR [facility] Last Admin: 01/08/18 22:16 Dose: 0.5 mg Sertraline HCl (Zoloft) 50 mg G-TUBE DAILY [facility] Allergies Allergy/AdvReac Type Severity Reaction Status Date / Time *MDRO Multi-Drug Resistant AdvReac Unknown Uncoded 11/10/17 06:21 Organism Home Medications Medication Instructions Recorded Confirmed Type aspirin [Aspirin Low Dose] 81 mg FEEDING TUBE DAILY 01/08/18 01/08/18 History clonidine HCl [Catapres] 0.1 mg FEEDING TUBE TID PRN 01/08/18 01/08/18 History gabapentin 200 mg FEEDING TUBE TID 01/08/18 01/08/18 History hydralazine 100 mg FEEDING TUBE Q8HR 01/08/18 01/08/18 History insulin detemir U-100 [Levemir 5 unit SUB-Q Q12HR 01/08/18 01/08/18 History U-100 Insulin] isosorbide dinitrate 20 mg FEEDING TUBE Q8HR 01/08/18 01/08/18 History lorazepam [Ativan] 0.5 mg FEEDING TUBE Q4HR PRN 01/08/18 01/08/18 History magnesium hydroxide [Milk of 30 ml FEEDING TUBE Q4HR PRN 01/08/18 01/08/18 History Magnesia] metoprolol tartrate 25 mg FEEDING TUBE BID 01/08/18 01/08/18 History morphine concentrate 5 mg FEEDING TUBE Q3H PRN 01/08/18 01/08/18 History multivitamin,yg-hmua-saqslosi 1 tab FEEDING TUBE DAILY 01/08/18 01/08/18 History [Thera-M] omeprazole 20 mg FEEDING TUBE DAILY 01/08/18 01/08/18 History oxycodone-acetaminophen [Percocet] 1 tab FEEDING TUBE Q4H 01/08/18 01/08/18 History risperidone [Risperdal] 0.5 mg FEEDING TUBE Q8HR 01/08/18 01/08/18 History sennosides [senna] 8.6 mg FEEDING TUBE BID 01/08/18 01/08/18 History sertraline [Zoloft] 50 mg FEEDING TUBE DAILY 01/08/18 01/08/18 History Exam Vital signs: Vital Signs 01/08/18 17:39 01/08/18 19:10 01/08/18 22:00 Temperature 98.3 F Pulse Rate 65 67 69 Respiratory Rate 16 20 18 Blood Pressure 179/89 H 172/77 H 200/82 H Pulse Oximetry 98 97 97 01/08/18 22:45 Temperature Pulse Rate 94 H Respiratory Rate 18 Blood Pressure 177/78 H Pulse Oximetry 96 Intake & Output 01/08/18 01/08/18 01/09/18 06:59 18:59 06:59 Weight 79.379 kg Narrative: Gen.: No acute distress Head: Normocephalic. Atraumatic. EENT: Nose without drainage. Airway intact. Cardiovascular: Regular rate and rhythm. No murmurs, rubs or gallops. Respiratory: Lungs clear to auscultation bilaterally. No wheezes or rhonchi. Abdomen: Soft, nontender, nondistended. No peritoneal signs. Musculoskeletal: No gross deformities. No edema. Skin: No obvious rashes or erythema. Neuro: Opens her eyes to voice. Mumbles answers to questions. Results - Labs CBC & Chem 7: 01/08/18 18:41 01/08/18 18:41 Labs: Laboratory Results - last 24 hr 01/08/18 01/08/18 01/08/18 18:41 18:41 18:41 WBC 9.3 RBC 4.38 Hgb 11.5 L Hct 35.7 MCV 81.6 MCH 26.2 L MCHC 32.1 RDW 17.3 H Plt Count 195 MPV 9.1 Neut % (Auto) 67.8 Lymph % (Auto) 23.0 [place] % (Auto) 4.9 Eos % (Auto) 3.7 Baso % (Auto) 0.6 Neut # (Auto) 6.3 Lymph # (Auto) 2.1 [place] # (Auto) 0.5 Eos # (Auto) 0.4 Baso # (Auto) 0.1 WBC Differential . Differential Comment Auto diff final PT 10.2 INR 1.0 APTT 27.5 Sodium 140 Potassium 3.8 Chloride 100 Carbon Dioxide 30.9 Anion Gap 9 BUN 45 H Creatinine 1.59 H Estimated GFR 33 L Random Glucose 95 Calcium 10.6 H Caprini VTE Risk Assessment Caprini VTE Risk Assessment: Moderate/High Risk (score >= 2) Caprini Risk Assessment Model: Point Value = 1 Point Value = 2 Point Value = 3 Point Value = 5 Age 41-60 Minor surgery BMI > 25 kg/m2 Swollen legs Varicose veins or History of unexplained or recurrent spontaneous Oral contraceptives or hormone replacement Sepsis (< 1 month) Serious lung disease, including pneumonia (< 1 month) Abnormal pulmonary function Acute myocardial infarction Congestive heart failure (< 1 month) History of inflammatory bowel disease Medical patient at bed rest Age 61-74 Arthroscopic surgery Major open surgery (> 45 min) Laparoscopic surgery (> 45 min) Malignancy Confined to bed (> 72 hours) Immobilizing plaster cast Central venous access Age >= 75 History of VTE Family history of VTE Factor V Leiden Prothrombin [id number] Lupus anticoagulant Anticardiolipin antibodies Elevated serum homocysteine Heparin-induced thrombocytopenia Other congenital or acquired thrombophilia Stroke (< 1 month) Elective arthroplasty Hip, pelvis, or leg fracture Acute spinal cord injury (< 1 month) Prophylaxis Regimen: Total Risk Factor Score Risk Level Prophylaxis Regimen 0-1 Low Early ambulation 2 Moderate Order ONE of the following: *Sequential Compression Device (SCD) *Heparin 5000 units SQ BID 3-4 Higher Order ONE of the following medications: *Heparin 5000 units SQ TID *Enoxaparin/Lovenox 40 mg SQ daily (WT < 150 kg, CrCl > 30 mL/min) *Enoxaparin/Lovenox 30 mg SQ daily (WT < 150 kg, CrCl > 10-29 mL/min) *Enoxaparin/Lovenox 30 mg SQ BID (WT < 150 kg, CrCl > 30 mL/min) AND/OR *Sequential Compression Device (SCD) 5 or more Highest Order ONE of the following medications: *Heparin 5000 units SQ TID (Preferred with Epidurals) *Enoxaparin/Lovenox 40 mg SQ daily (WT < 150 kg, CrCl > 30 mL/min) *Enoxaparin/Lovenox 30 mg SQ daily (WT < 150 kg, CrCl > 10-29 mL/min) *Enoxaparin/Lovenox 30 mg SQ BID (WT < 150 kg, CrCl > 30 mL/min) AND *Sequential Compression Device (SCD) Assessment and Plan - Plan Assessment/plan: 1. Dislodged nephrostomy tube Interventional radiology consulted to replace nephrostomy tube Anticipate discharge following the procedure 2. Hypertension Continue home medications 3. History of CVA Deficits at baseline 4. Diabetes mellitus Sliding-scale insulin Monitor blood glucose 5. Chronic kidney disease BUN/creatinine 45/1.59, baseline for this patient FEN N.p.o. NS at 70 cc/hour Electrolytes: Monitor and replete as needed Holding pharmacologic anticoagulation in anticipation of procedure
[2018-01-09] MEDS: oxyCODONE/Acetaminophen 10/325 Tablet G-TUBE SCH ×5 (01:53→17:18)
[2018-01-09] MEDS: Insulin NovoLIN Regular Correctional Sugar Inj SQ SCH ×4 (03:13→17:20)
[2018-01-09] MEDS ORDERED: Sertraline 50 MG Tablet G-TUBE SCH (09:00)
[2018-01-09] MEDS ORDERED: Metoprolol Tartrate 25 MG Tablet G-TUBE SCH (09:00)
[2018-01-09] MEDS ORDERED: Senna/Docusate Sodium 8.6/50 MG Tablet PO SCH (09:00)
[2018-01-09] MEDS: Gabapentin 100 MG Capsule G-TUBE SCH ×2 (09:29→16:27)
--- NOTE | 2018-01-09 10:17 | P.PNIM ---
Subjective Interval history: Patient is nonverbal and noninteractive. Discussed with RN. Awaiting nephrostomy tube replacement. Physical Exam Vital signs: Vital Signs 01/08/18 17:39 01/08/18 19:10 01/08/18 22:00 Temperature 98.3 F Pulse Rate 65 67 69 Respiratory Rate 16 20 18 Blood Pressure 179/89 H 172/77 H 200/82 H Pulse Oximetry 98 97 97 01/08/18 22:45 01/09/18 02:07 01/09/18 03:00 Temperature Pulse Rate 94 H 92 H 96 H Respiratory Rate 18 18 16 Blood Pressure 177/78 H 192/96 H 152/75 H Pulse Oximetry 96 01/09/18 04:00 01/09/18 05:00 01/09/18 06:32 Temperature 99.0 F Pulse Rate 99 H 98 H Respiratory Rate 18 18 18 Blood Pressure 140/68 154/79 H Pulse Oximetry 94 L 95 01/09/18 07:42 01/09/18 09:31 Temperature 98.9 F Pulse Rate 106 H 92 H Respiratory Rate 19 14 Blood Pressure 114/70 123/61 Pulse Oximetry 91 L 95 Intake & Output 01/08/18 01/09/18 01/09/18 18:59 06:59 18:59 Weight 79.379 kg Narrative: GENERAL: Nonverbal and noninteractive in no apparent distress. CARDIOVASCULAR: Normal rate and regular rhythm without murmurs, gallops, or rubs. RESPIRATORY: Breath sounds equal and clear to auscultation bilaterally. GASTROINTESTINAL: Abdomen soft, non-distended. Site of prior nephrostomy on the right appear clean with no evidence of surrounding cellulitis. Results - Labs CBC & Chem 7: 01/08/18 18:41 01/08/18 18:41 Laboratory Results - last 24 hr 01/08/18 01/08/18 01/08/18 18:41 18:41 18:41 WBC 9.3 RBC 4.38 Hgb 11.5 L Hct 35.7 MCV 81.6 MCH 26.2 L MCHC 32.1 RDW 17.3 H Plt Count 195 MPV 9.1 Neut % (Auto) 67.8 Lymph % (Auto) 23.0 [place] % (Auto) 4.9 Eos % (Auto) 3.7 Baso % (Auto) 0.6 Neut # (Auto) 6.3 Lymph # (Auto) 2.1 [place] # (Auto) 0.5 Eos # (Auto) 0.4 Baso # (Auto) 0.1 WBC Differential . Differential Comment Auto diff final PT 10.2 INR 1.0 APTT 27.5 Sodium 140 Potassium 3.8 Chloride 100 Carbon Dioxide 30.9 Anion Gap 9 BUN 45 H Creatinine 1.59 H Estimated GFR 33 L POC Glucose Random Glucose 95 Calcium 10.6 H 01/09/18 01/09/18 03:08 07:43 WBC RBC Hgb Hct MCV MCH MCHC RDW Plt Count MPV Neut % (Auto) Lymph % (Auto) [place] % (Auto) Eos % (Auto) Baso % (Auto) Neut # (Auto) Lymph # (Auto) [place] # (Auto) Eos # (Auto) Baso # (Auto) WBC Differential Differential Comment PT INR APTT Sodium Potassium Chloride Carbon Dioxide Anion Gap BUN Creatinine Estimated GFR POC Glucose 108 120 H Random Glucose Calcium Assessment and Plan - Assessment (1) Nephrostomy tube displaced Code(s): T83.022A - Displacement of nephrostomy catheter, initial encounter Status: Acute - Plan 62-year-old female with: 1. Dislodged nephrostomy tube Interventional radiology consulted to replace nephrostomy tube Anticipate discharge today following the procedure 2. Hypertension Continue home medications 3. History of CVA Deficits at baseline. Noninteractive. 4. Diabetes mellitus Sliding-scale insulin Monitor blood glucose 5. Chronic kidney disease BUN/creatinine 45/1.59, baseline for this patient We have been unable to get in touch with the patient's sone for consent. Nephroureteral stent placement is medically necessary, therefore we will proceed with the procedure. ALEYDA RN. Discharge Planning: Discharge patient back to SNF Condition on discharge: Stable Continue tube feeding diet Activity ad jojo. Rx written: None Follow-up with primary care physician
[2018-01-09] MEDS: Sod Chloride 0.9% Inj 1,000 ML IV.CONT SCH ×2 (11:51→17:03)
[2018-01-09] MEDS ORDERED: fentaNYL Citrate Inj 100 MCG/2 ML Ampul ONE ×2 (13:31→14:21)
[2018-01-09] MEDS ORDERED: Levofloxacin 500 mg Premix Inj 500 MG/100 ML PIGGYBACK IV.SIG ONE (13:55)
--- NOTE | 2018-01-09 15:01 | P.RAD ---
Post Procedure Progress Note - Pre Procedure Diagnosis (1) Nephrostomy tube displaced - Post Procedure Diagnosis (1) Nephrostomy tube displaced - Procedure Information Procedure Date: 01/09/18 Supervising Radiologist: Chetan Flores Jr, MD Estimated blood loss (mL): 0 Anesthesia: Conscious Sedation - Plan of Activity Patient to Unit: ROPU Patient Condition: Good See PACS Report for procedural detail/treatment. Drainage Procedure right Ureteral Stent Placement Fluid Description: Bloody Findings: Pt has nonfunctioning right ureteral stent that is adhered. Placed new nephroureteral stent to replace stent that pulled out. Plan: F/U with urology.
--- NOTE | 2018-01-09 16:00 | IR ---
EXAM DATE: 01/09/2018 3:31 PM EDT AGE/SEX: 62 years / Female INDICATIONS: Patient presents with chronic indwelling right ureteral stent that is nonfunctioning an d unable to be removed. Prior right nephroureteral catheter. This was inadvertently pulled out by the patient. Replacement of the nephroureteral catheter requested. Unable to get in touch with any famil y member. Medically necessary consent obtained. CLINICAL DATA: This is the patient's initial encounter. Patient reports that signs and symptoms have been present for 1 day and indicates a pain score of Nonresponsive. MEDICAL/SURGICAL HISTORY: . Altered mental status Anemia CVA (cerebral vascular accident)CVA (c erebral vascular accident)Chronic pain Contracture of muscle, left upper arm Diabetes GERD (gastroeso phageal reflux disease)HTN (hypertension)History of frequent urinary tract infections Kidney calculus Muscle weakness Neurogenic bladder . N/A COMPARISON: [facility], NEPHROURETERAL CATHETER, RIGHT, 11/21/2017. . FLUORO TIME (min): 9.1 IMAGE SERIES: 12 SEDATION TIME (min): 60 CONTRAST (cc): 15 CC Omnipaque (iohexol) 350 MEDICATION(S): 4 MG midazolam (Versed) IV 200 MCG fentanyl (Sublimaze) IV Vancomycin within 2 hrs of procedure, Ancef (or alternative) within 1 hr of procedure. DEVICE(S): 8 [place] nephroureteral stent 28cm expel . . PROCEDURE : 1. Ultrasound-guided puncture of the kidney. 2. Antegrade percutaneous pyelogram. 3. Percutaneous nephroureteral stent placement. 4. Conscious sedation with continuous EKG and oximetry monitoring. The risks, benefits and alternatives to the procedure were explained and verbal and written consent w as obtained. The site was prepped in sterile fashion. Full sterile technique was used, including ca p, mask, sterile gloves and gown and a large sterile sheet. Hand hygiene and 2% chlorhexidine and/or betadine/alcohol prep was utilized per protocol for cutaneous antisepsis. Sterile gel and sterile p robe cover were utilized for ultrasound guidance. The skin and subcutaneous tissues were infiltrated with local anesthetic solution. With ultrasound and fluoroscopic guidance the right kidney was punctured and a percutaneous antegrade pyelogram was performed demonstrating a dilated collecting system. Renal stones are seen involving t he mid to lower pole. Access to the midpole calyx containing the stone was performed. Serial dilatati on was performed and the prescribed nephroureteral stent was placed with the proximal portion within the renal pelvis and the distal extent in the urinary bladder. An 8 [place] peel-away sheath was need ed to help guide the ureteral stent. Injection of positive contrast demonstrates good position of the catheter. Conscious sedation was performed with the prescribed dosages and duration as above in the presence of an independent trained radiology nurse to assist in the monitoring of the patient. EKG and oximetry remained stable throughout the procedure. The patient tolerated the procedure well and there were n o complications. The patient was sent to post anesthesia recovery in stable condition. CONCLUSION: 1. Uncomplicated right nephroureteral stent placement as above. This patient has a chronic ureteral stent that is nonfunctioning. Electronically signed by: Chetan Flores MD 01/09/2018 3:58 PM EDT
== END 2018-01-09 19:02 ==
LOC: NEDA 17:06 → NEPC 17:06 → NEPFCDU 17:06 → NEDH 01-09 06:25 → NEPFCDU 01-09 10:54
PROVIDERS: ADMIT Family Medicine; ATTEND Family Medicine

== ENCOUNTER 2018-04-03 04:45 | Inpatient (IN) ==
[2018-04-03] MEDS ORDERED: Acetaminophen 650 MG Supp RECTAL ONE (05:07)
[2018-04-03] MEDS ORDERED: Piperacil/Tazo 4.5 GM Premix 4.5 GM/100 ML BAG IV.SIG ONE (05:09)
[2018-04-03] MEDS ORDERED: Vancomycin Inj 1,000 MG in Sodium Chlor 0.9% Inj 250 ML IV.SIG ONE (05:11)
[2018-04-03] MEDS ORDERED: Sod Chloride 0.9% Inj 1,000 ML IV.SIG SCH ×3 (05:15→11:45)
--- NOTE | 2018-04-03 05:27 | ED ---
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 Patient presents from detention. Patient reportedly is a hospice patient due to history of CVA. Hospice nursing staff did not present with the patient and detention staff is not aware of patient's CODE STATUS or why she has hospice care. Patient is unable to provide any history. Per nursing facility and hospice staff patient was being sent to the emergency department for assessment of placement of the nephrostomy tube and otherwise at her baseline as she is typically nonverbal although some worsening of her mentation as she is typically more alert reportedly. MD complaint: Reports fever Related Data Home Medications Medication Instructions Recorded Confirmed aspirin [Aspirin Low Dose] 81 mg FEEDING TUBE DAILY 01/08/18 04/03/18 clonidine HCl [Catapres] 0.1 mg FEEDING TUBE TID PRN 01/08/18 04/03/18 gabapentin 200 mg FEEDING TUBE TID 01/08/18 04/03/18 hydralazine 100 mg FEEDING TUBE Q8HR 01/08/18 04/03/18 insulin detemir U-100 [Levemir 5 unit SUB-Q Q12HR 01/08/18 04/03/18 U-100 Insulin] isosorbide dinitrate 20 mg FEEDING TUBE Q8HR 01/08/18 04/03/18 lorazepam [Ativan] 0.5 mg FEEDING TUBE Q4HR PRN 01/08/18 04/03/18 magnesium hydroxide [Milk of 30 ml FEEDING TUBE Q4HR PRN 01/08/18 04/03/18 Magnesia] metoprolol tartrate 25 mg FEEDING TUBE BID 01/08/18 04/03/18 morphine concentrate 5 mg FEEDING TUBE Q3H PRN 01/08/18 04/03/18 multivitamin,[id number] 1 tab FEEDING TUBE DAILY 01/08/18 04/03/18 [Thera-M] omeprazole 20 mg FEEDING TUBE DAILY 01/08/18 04/03/18 oxycodone-acetaminophen [Percocet] 1 tab FEEDING TUBE Q4H 01/08/18 04/03/18 risperidone [Risperdal] 0.5 mg FEEDING TUBE Q8HR 01/08/18 04/03/18 sennosides [senna] 8.6 mg FEEDING TUBE BID 01/08/18 04/03/18 sertraline [Zoloft] 50 mg FEEDING TUBE DAILY 01/08/18 04/03/18 Allergies Allergy/AdvReac Type Severity Reaction Status Date / Time *MDRO Multi-Drug Resistant AdvReac Unknown Uncoded 11/10/17 06:21 Organism Review of Systems ROS Unobtainable ROS Unobtainable: unobtainable due to mental status PMFSH Medical History Medical History Altered mental status (Acute) Contracture of muscle, left upper arm (Acute) Neurogenic bladder (Acute) CVA (cerebral vascular accident) (Acute) GERD (gastroesophageal reflux disease) (Acute) Kidney calculus (Acute) Chronic pain (Acute) Muscle weakness (Acute) History of frequent urinary tract infections (Acute) Anemia (Acute) CVA (cerebral vascular accident) (Acute) Diabetes (Acute) HTN (hypertension) (Acute) Social History Social History Substance History: Unable to Obtain Second Hand Smoke Exposure: No Smoking Status: Unknown if ever smoked How Often Do You Have a Drink Containing Alcohol: Unable to Obtain Recent Travel in [facility] within the Last 8 Weeks: No Recent Out of Country Travel within the Last 8 Weeks: No Immunization History Tetanus Immunization: Unable to Assess Hx Influenza Vaccine This Season: Unable to Assess Exam Narrative Exam Narrative: GENERAL: Ill-appearing adult female in no respiratory distress. M:5 V:2 E:2 SKIN: Focused skin assessment warm/dry. HEAD: Atraumatic. Normocephalic. EYES: Pupils equal and round on L, R cataract. No scleral icterus. No injection or drainage. ENT: No nasal bleeding or discharge. Mucous membranes pink and moist. Airway is patent. NECK: Trachea midline. No JVD. CARDIOVASCULAR: Regular rate and rhythm. No murmur appreciated. RESPIRATORY: No accessory muscle use. Clear to auscultation. Breath sounds equal bilaterally. GASTROINTESTINAL: Abdomen soft, non-tender, nondistended. PEG in place. Hepatic and splenic margins not palpable. MUSCULOSKELETAL: No obvious deformities. No clubbing. No cyanosis. No edema. R nephrostomy tube sutured in place. NEUROLOGICAL: Obtunded. No obvious cranial nerve deficits. Motor grossly within normal limits on right, left contractures. Non verbal at baseline -- groans for communication Course Initial Documented Vital Signs Temperature 102.9 F H 04/03/18 04:51 Pulse Rate 94 H 04/03/18 04:51 Respiratory Rate 18 04/03/18 04:51 Blood Pressure 120/55 L 04/03/18 04:51 Pulse Oximetry 91 L 04/03/18 04:51 Last Documented Vital Signs Temperature 102.9 F H 04/03/18 04:51 Pulse Rate 77 04/03/18 06:03 Respiratory Rate 16 04/03/18 06:03 Blood Pressure 104/53 L 04/03/18 06:03 Pulse Oximetry 98 04/03/18 06:03 Critical Care Time Critical Care Time: Yes Total Critical Care Time: 35 Attestation: Aggregate critical care time was 35 minutes. Time to perform other separately billable procedures was not included in the critical care time. My time did not include minutes spent treating any other patients simultaneously or on activities that did not directly contribute to the patient's treatment. The services I provided to this patient were to treat and/or prevent clinically significant deterioration that could result in: Respiratory failure, septic shock, I provided critical care services requiring my management, as noted below: Chart data review, documentation time, medication orders and management, vital sign assessments/reviewing monitor data, ordering and reviewing lab tests, ordering and interpreting/reviewing x-rays and diagnostic studies, care of the patient and discussion of the patient with the admitting physicians. 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 IV access obtained patient given bolus of normal saline patient at this time is a hospice patient for history of CVA but according to hospice is a full code. Patient is given presumptive IV antibiotic cefepime and vancomycin. Specimens collected and sent for resulting Imaging study ordered to assess placement of nephrostomy tube as detention reported dislodgment of nephrostomy tube and leaking about nephrostomy tube. At 6:35 AM patient's level of consciousness has improved significantly after IV fluid hydration CT abdomen pelvis identifies that nephro-ureteral stent is in place however patient is putting out no urine through this site and per radiology recommendation IR consult most likely necessary to have nephrostomy tube replaced. Medical Screen Exam Complete: Yes Emergency Medical Condition: Yes Medical Records Medical records reviewed: Yes I reviewed the patient's medical records. Lab Data Lab results reviewed: Yes I reviewed the patient's lab results. Result diagrams: 04/03/18 05:10 04/03/18 05:10 Lab Results 04/03/18 04/03/18 04/03/18 Range/Units 05:10 05:10 05:10 WBC 16.3 H (4.0-11.0) th/mm3 RBC 2.94 L (4.00-5.30) mil/mm3 Hgb 7.9 L (11.6-15.3) gm/dL Hct 24.1 L (35.0-46.0) % MCV 82.0 (80.0-100.0) fL MCH 26.7 L (27.0-34.0) pg MCHC 32.6 (32.0-36.0) % RDW 17.6 H (11.6-17.2) % Plt Count 140 L (150-450) th/mm3 MPV 10.2 (7.0-11.0) fL Neut % (Auto) 87.0 H (16.0-70.0) % Lymph % (Auto) 8.9 L (9.0-44.0) % [place] % (Auto) 3.8 (0.0-8.0) % Eos % (Auto) 0.1 (0.0-4.0) % Baso % (Auto) 0.2 (0.0-2.0) % Neut # (Auto) 14.1 H (1.8-7.7) th/mm3 Lymph # (Auto) 1.5 (1.0-4.8) th/mm3 [place] # (Auto) 0.6 (0.0-0.9) th/mm3 Eos # (Auto) 0.0 (0.0-0.4) th/mm3 Baso # (Auto) 0.0 (0.0-0.2) th/mm3 WBC Differential . Differential Comment Auto diff final PT 10.7 (9.8-11.6) sec INR 1.1 Ratio APTT 29.8 (24.3-30.1) sec Puncture Site Patient Temperature O2 Saturation (90-100) % ABG pH (7.380-7.420) ABG pCO2 (38-42) mmHg ABG pO2 (61-120) mmHg ABG HCO3 (22-26) mmol/L ABG O2 Content (12.0-20.0) Vol % ABG Base Excess (-2-2) mmol/L ABG Methemoglobin (0-2) % Soy Test Hemoglobin (12.0-16.0) G/DL Carboxyhemoglobin (0-4) % O2 Delivery Device Liter Flow L/M Critical Value Sodium 138 (136-145) meq/L Potassium 3.2 L (3.5-5.1) meq/L Chloride 99 (98-107) meq/L Carbon Dioxide 27.8 (21.0-32.0) meq/L Anion Gap 11 (5-15) meq/L BUN 142 H (7-18) mg/dL Creatinine 2.60 H (0.50-1.00) mg/dL Estimated GFR 19 L (>89) mL/min Random Glucose 238 H (74-106) mg/dL Lactic Acid (0.4-2.0) mmol/L Calcium 8.5 (8.5-10.1) mg/dL Magnesium 2.7 H (1.5-2.5) mg/dL Total Bilirubin 0.4 (0.2-1.0) mg/dL AST 29 (15-37) U/L ALT 34 (10-53) U/L Alkaline Phosphatase 99 (45-117) U/L Total Creatine Kinase 103 (26-192) U/L CK-MB (CK-2) Less than 1.0 (0.5-3.6) ng/mL Troponin I Less than 0.02 L (0.02-0.05) ng/mL Total Protein 7.5 (6.4-8.2) g/dL Albumin 2.7 L (3.4-5.0) g/dL Lipase 70 L (73-393) U/L 04/03/18 04/03/18 Range/Units 05:10 05:35 WBC (4.0-11.0) th/mm3 RBC (4.00-5.30) mil/mm3 Hgb (11.6-15.3) gm/dL Hct (35.0-46.0) % MCV (80.0-100.0) fL MCH (27.0-34.0) pg MCHC (32.0-36.0) % RDW (11.6-17.2) % Plt Count (150-450) th/mm3 MPV (7.0-11.0) fL Neut % (Auto) (16.0-70.0) % Lymph % (Auto) (9.0-44.0) % [place] % (Auto) (0.0-8.0) % Eos % (Auto) (0.0-4.0) % Baso % (Auto) (0.0-2.0) % Neut # (Auto) (1.8-7.7) th/mm3 Lymph # (Auto) (1.0-4.8) th/mm3 [place] # (Auto) (0.0-0.9) th/mm3 Eos # (Auto) (0.0-0.4) th/mm3 Baso # (Auto) (0.0-0.2) th/mm3 WBC Differential Differential Comment PT (9.8-11.6) sec INR Ratio APTT (24.3-30.1) sec Puncture Site Left radial Patient Temperature 98.6 O2 Saturation 95 (90-100) % ABG pH 7.42 (7.380-7.420) ABG pCO2 43 H (38-42) mmHg ABG pO2 98 (61-120) mmHg ABG HCO3 27 H (22-26) mmol/L ABG O2 Content 9.8 L (12.0-20.0) Vol % ABG Base Excess 2.9 H (-2-2) mmol/L ABG Methemoglobin 0.9 (0-2) % Soy Test Present Hemoglobin 7.2 L* (12.0-16.0) G/DL Carboxyhemoglobin 2.3 (0-4) % O2 Delivery Device Nasal cannula Liter Flow 2.00 L/M Critical Value Yes Sodium (136-145) meq/L Potassium (3.5-5.1) meq/L Chloride (98-107) meq/L Carbon Dioxide (21.0-32.0) meq/L Anion Gap (5-15) meq/L BUN (7-18) mg/dL Creatinine (0.50-1.00) mg/dL Estimated GFR (>89) mL/min Random Glucose (74-106) mg/dL Lactic Acid 1.6 (0.4-2.0) mmol/L Calcium (8.5-10.1) mg/dL Magnesium (1.5-2.5) mg/dL Total Bilirubin (0.2-1.0) mg/dL AST (15-37) U/L ALT (10-53) U/L Alkaline Phosphatase (45-117) U/L Total Creatine Kinase (26-192) U/L CK-MB (CK-2) (0.5-3.6) ng/mL Troponin I (0.02-0.05) ng/mL Total Protein (6.4-8.2) g/dL Albumin (3.4-5.0) g/dL Lipase (73-393) U/L Imaging Data Radiologist's impression: Chest X-Ray 04/03/18 05:06 CONCLUSION: 1. No acute cardiopulmonary disease. Abdomen/Pelvis CT 04/03/18 05:08 CONCLUSION: 1. Atrophic end-stage left kidney containing coarse calcifications. 2. Right-sided nephroureteral catheter in place with redemonstration of extensive stone encrustation involving the proximal portion of the ureteral stent within the bladder. There are multiple additional stones in the ureter and renal pelvis as well as a dominant staghorn calyceal calcification in the superior pole of the right kidney measuring approximately 2.5 cm. There is persistent mild to moderate hydroureteronephrosis. Consider interventional radiology consultation for possible catheter exchange if there is decreased urine output or if there is concern for urosepsis. 3. Gastrostomy catheter in place. ECG Data Interpretation: EKG: Normal sinus rhythm rate 77 LVH by voltage criterion nonspecific ST-T changes no acute ST elevation Discharge Plan Discharge Disposition Patient Disposition: 30 Still Patient Discharge Condition Condition: Fair Discharge Details Diagnosis: Sepsis, Altered mental status, Anemia, Acute renal failure superimposed on chronic kidney disease, Acute UTI, Nephrostomy tube failure with subsequent urine leak Physicians Team ED Provider: Kaylee Perdomo Primary Care Provider: Nii Stone V Rxs /Orders / Referrals /Forms Prescriptions: No Action sennosides [senna] 8.6 mg Tablet 8.6 mg Feeding Tube BID RF: 0 clonidine HCl [Catapres] 0.1 mg Tablet 0.1 mg Feeding Tube TID PRN (Reason: SBP >160 or DPB >100) RF: 0 aspirin [Aspirin Low Dose] 81 mg Tablet,Delayed Release (Dr/Ec) 81 mg Feeding Tube DAILY RF: 0 lorazepam [Ativan] 0.5 mg Tablet 0.5 mg Feeding Tube Q4HR PRN (Reason: Anxiety/Shortness of Breath) RF: 0 magnesium hydroxide [Milk of Magnesia] 400 mg/5 mL Suspension 30 ml Feeding Tube Q4HR PRN (Reason: Constipation) RF: 0 oxycodone-acetaminophen [Percocet] 10-325 mg Tablet 1 tab Feeding Tube Q4H RF: 0 hydralazine 100 mg Tablet 100 mg Feeding Tube Q8HR RF: 0 isosorbide dinitrate 20 mg Tablet 20 mg Feeding Tube Q8HR RF: 0 omeprazole 20 mg Capsule,Delayed Release(Dr/Ec) 20 mg Feeding Tube DAILY RF: 0 gabapentin 100 mg Capsule 200 mg Feeding Tube TID RF: 0 sertraline [Zoloft] 50 mg Tablet 50 mg Feeding Tube DAILY RF: 0 risperidone [Risperdal] 0.5 mg Tablet 0.5 mg Feeding Tube Q8HR RF: 0 multivitamin,[id number] [Thera-M] Tablet 1 tab Feeding Tube DAILY RF: 0 metoprolol tartrate 25 mg Tablet 25 mg Feeding Tube BID RF: 0 morphine concentrate 20 mg/mL Syringe 5 mg Feeding Tube Q3H PRN (Reason: Pain) RF: 0 insulin detemir U-100 [Levemir U-100 Insulin] 100 unit/mL Solution 5 unit SUB-Q Q12HR RF: 0 Discharge Interventions Interventions: Vital Signs Last Done: 04/03/18 06:03 Status ED Status: With Doctor
[2018-04-03 05:32] LABS: Baso % (Auto) 0.2 % (0.0-2.0); Eos % (Auto) 0.1 % (0.0-4.0); Hematocrit 24.1 % (35.0-46.0); Hemoglobin 7.9 gm/dL (11.6-15.3); Lymph # (Auto) 1.5 th/mm3 (1.0-4.8); Lymph % (Auto) 8.9 % (9.0-44.0); Mean Corpuscular HGB Conc 32.6 % (32.0-36.0); Mean Corpuscular Hemoglobin 26.7 pg (27.0-34.0); Mean Platelet Volume 10.2 fL (7.0-11.0); Mono # (Auto) 0.6 th/mm3 (0.0-0.9); Mono % (Auto) 3.8 % (0.0-8.0); Neut # (Auto) 14.1 th/mm3 (1.8-7.7); Platelet Count 140 th/mm3 (150-450); Red Blood Count 2.94 mil/mm3 (4.00-5.30); Red Cell Distribution Width 17.6 % (11.6-17.2); White Blood Count 16.3 th/mm3 (4.0-11.0)
[2018-04-03 05:40] LABS: Activated Partial Thrombo Time 29.8 sec (24.3-30.1); INR 1.1 Ratio; Prothrombin Time 10.7 sec (9.8-11.6)
[2018-04-03 05:54] LABS: ABG Base Excess 2.9 mmol/L (-2-2); ABG PCO2 43 mmHg (38-42); ABG PO2 98 mmHg (61-120)
[2018-04-03 06:01] LABS: Alanine Aminotransferase 34 U/L (10-53); Albumin 2.7 g/dL (3.4-5.0); Anion Gap 11 meq/L (5-15); Aspartate Aminotransferase 29 U/L (15-37); Blood Urea Nitrogen 142 mg/dL (7-18); Calcium 8.5 mg/dL (8.5-10.1); Carbon Dioxide 27.8 meq/L (21.0-32.0); Chloride 99 meq/L (98-107); Glomerular Filtration Rate 19 mL/min (>89); Glucose,Random 238 mg/dL (74-106); Lipase 70 U/L (73-393); Magnesium 2.7 mg/dL (1.5-2.5); Potassium 3.2 meq/L (3.5-5.1); Sodium 138 meq/L (136-145)
[2018-04-03 06:05] LABS: Alkaline Phosphatase 99 U/L (45-117); Creatine Kinase 103 U/L (26-192); Total Protein 7.5 g/dL (6.4-8.2)
--- NOTE | 2018-04-03 06:21 | CT ---
EXAM DATE: 04/03/2018 5:10 AM EDT AGE/SEX: 62 years / Female INDICATIONS: Right flank pain, fever. CLINICAL DATA: This is the patient's initial encounter. Patient reports that signs and symptoms have been present for 1 day and indicates a pain score of Nonresponsive. MEDICAL/SURGICAL HISTORY: Cerebrovascular disease. Renal calculi. Hypertension. Neurogenic b ladder. Diabetes. Anemia. Kidney failure. Nephrostomy tube, right. Bilateral hip surgery. Peg Tube. RADIATION DOSE: 11.72 CTDI (mGy) COMPARISON: [facility] [place], CT ABDOMEN & PELVIS W/O CONTRAST, 03/30/2018. . TECHNIQUE: Multiple contiguous axial images were obtained through the abdomen. Images were obtained using multiple row detector helical technique. Using automated exposure control and adjustment of the mA and/or kV according to patient size, radiation dose was kept as low as reasonably achievable to o btain optimal diagnostic quality images. DICOM format image data is available electronically for rev iew and comparison. FINDINGS: LOWER LUNGS: Trace fluid and airspace consolidation at the right lung base. LIVER: Diffusely homogeneous density without intrahepatic ductal dilatation or volume loss. SPLEEN: 2 dominant hypodense lesions measuring up to 1.1 cm similar to prior exam. PANCREAS: Grossly unremarkable. KIDNEYS: Left kidney is very small and end-stage in appearance and contains coarse calcifications po steriorly. There is a nephroureteral catheter in place with a large 2.5 cm calcification in the super ior pole and multiple additional calcifications in the inferior pole calyces as well as centrally in the renal pelvis measuring up to 8 mm. Calcifications are also noted in the mid ureter as well as in the bladder adjacent to the distal lobe. There is stable mild to moderate hydroureteronephrosis. ADRENAL GLANDS: Unremarkable. AORTA: Kathie-aneurysmal. BOWEL/MESENTERY: Stable gastrostomy catheter in place. Scattered mild diverticulosis. No dilated loo ps of bowel or evidence for obstruction. No free fluid or drainable fluid collections. ABDOMINAL WALL: Intact. BLADDER: Layering calcifications in the bladder adjacent the distal ureteral stent loop. REPRODUCTIVE: Uterus is not visualized and may be surgically absent. BONY STRUCTURES: Bilateral femoral fixation hardware. Degenerative spondylosis of the lumbar spine. CONCLUSION: 1. Atrophic end-stage left kidney containing coarse calcifications. 2. Right-sided nephroureteral catheter in place with redemonstration of extensive stone encrustation involving the proximal portion of the ureteral stent within the bladder. There are multiple addition al stones in the ureter and renal pelvis as well as a dominant staghorn calyceal calcification in the superior pole of the right kidney measuring approximately 2.5 cm. There is persistent mild to modera te hydroureteronephrosis. Consider interventional radiology consultation for possible catheter exchan ge if there is decreased urine output or if there is concern for urosepsis. 3. Gastrostomy catheter in place. Electronically signed by: Jadon Canales MD 04/03/2018 6:19 AM EDT
--- NOTE | 2018-04-03 06:21 | XR ---
EXAM DATE: 04/03/2018 5:06 AM EDT AGE/SEX: 62 years / Female INDICATIONS: Fever starting today CLINICAL DATA: This is the patient's initial encounter. Patient reports that signs and symptoms have been present for 1 day and indicates a pain score of Nonresponsive. MEDICAL/SURGICAL HISTORY: . Hypertension. Diabetes. Gastroesophageal reflux disease. Renal ston e Nephrostomy tube, right. COMPARISON: No prior exams available for comparison. FINDINGS: A single AP view of the chest demonstrates the lungs to be symmetrically aerated without evidence of mass, infiltrate or effusion. The cardiomediastinal contours are unremarkable. Osseous structures a re intact. CONCLUSION: 1. No acute cardiopulmonary disease. Electronically signed by: Jadon Canales MD 04/03/2018 6:20 AM EDT
[2018-04-03] MEDS ORDERED: Bisacodyl 10 MG Supp RECTAL PRN (06:51)
[2018-04-03] MEDS ORDERED: Vancomycin Consult Pharmacy OTHER PRN (06:56)
[2018-04-03] MEDS: Sod Chloride 0.9% Inj 1,000 ML IV.CONT SCH (07:06)
[2018-04-03 07:21] LABS: Amorphous Sediment,Urine Rare /hpf; Bacteria,Urine Many /hpf; Bilirubin,Urine Negative (Negative); Clarity,Urine Cloudy (Clear); Color,Urine Amber (Yellw/Straw); Glucose,Urine (UA) Negative (Negative); Leukocyte Esterase,Urine Large (Negative); Mucus,Urine Few /lpf (Occasional); Nitrite,Urine Negative (Negative); Specific Gravity,Urine 1.015 (1.002-1.035); Squamous Epithelial Cell,Urine 5 /hpf (0-5); Transitional Epi Cells,Urine <1 /hpf
[2018-04-03] MEDS ORDERED: Famotidine 20 MG Tablet PO SCH (09:00)
[2018-04-03] MEDS ORDERED: Famotidine PF Inj 20 MG/2 ML Vial IV.PUSH SCH (09:00)
[2018-04-03] MEDS ORDERED: Famotidine PF Inj 20 MG/2 ML Vial IV.PUSH PRN (09:00)
[2018-04-03] MEDS ORDERED: Vancomycin Inj 500 MG in Sodium Chlor 0.9% Inj 100 ML IV.SIG ONE (11:00)
--- NOTE | 2018-04-03 11:26 | P.HPCC ---
History of Present Illness Primary Care Physician: Nii Stone MD Chief Complaint: Altered mental status and fever History of Present Illness: Patient is a 62-year-old female with history of CVA with expressive aphasia left -sided hemiplegia with contracted left upper and lower extremity, neurogenic bladder, recurrent UTI, nephrostomy tube, PEG tube, CKD, anemia, aphasia, presents for worsening encephalopathy, sepsis and possible dislodgment of her nephrostomy tube. Patient is unable to give detailed history but in the ER it was noted that the nephrostomy tube might be dislodged. Her white count was 16.7 with left shift, patient had a fever of 102.5. BUN was 142 creatinine 2.6. Baseline creatinine is 1.5-2. Patient received fluid resuscitation with 1 L normal saline and also was given IV antibiotic cefepime and vancomycin blood cultures were drawn. Apparently patient is on hospice due to CVA at the detention. Patient's CODE STATUS was unknown for this reason she was deemed a full code and critical care medicine was consulted I evaluated the patient in the ICU, she appears critically ill she is somnolent but wakes up and moans. Patient is baseline aphasic. I have consulted IR for replacement of the dislodged nephrostomy tube.CT of the abdomen pelvis done in the ED showed right-sided nephroureteral catheter in place with redemonstration of extensive stone encrustation involving the proximal portion of the ureteral stent within the bladder. Multiple additional stones in the ureter and renal pelvis as well as a dominant staghorn calyceal calcification in the superior pole of the right kidney measuring approximately 2.5 cm. There is persistent mild to moderate hydroureteronephrosis. Additional 1 L fluid ordered, maintenance IV fluid, continue antibiotics with vancomycin and Zosyn renally dosed - Diagnosis (1) Severe sepsis (2) Acute UTI (3) Acute renal failure superimposed on chronic kidney disease (4) Acute metabolic encephalopathy (5) Hypertension (6) Diabetes (7) Nephrostomy tube failure with subsequent urine leak (8) Contracture of muscle, left upper arm (9) Neurogenic bladder (10) CVA (cerebral vascular accident) (11) Kidney calculus (12) Anemia Inpatient Certification: I certify that the inpatient services were ordered in accordance with Medicare regulations governing the order. This includes certification that hospital inpatient services are reasonable and necessary and in the case of services not specified as inpatient-only under 42 CFR 419.22(n), that they are appropriately provided as inpatient services in accordance to with the 2-midnight benchmark under 43 CFR 412.3(e) Estimated Total Length of Stay (Days): 5 Plans for Post Hospital Care: Not yet determined Review of Systems unobtainable due to mental condition, unobtainable due to mental status PMFSH - History History Provided By: Director Instructional Material / EMT - Medical History Medical History: Medical History (Last Reviewed 04/03/18 @ 05:55 by Kaylee Perdomo MD) Altered mental status (Acute) Contracture of muscle, left upper arm (Chronic) Neurogenic bladder (Chronic) CVA (cerebral vascular accident) (Chronic) GERD (gastroesophageal reflux disease) (Acute) Kidney calculus (Chronic) Chronic pain (Acute) Muscle weakness (Acute) History of frequent urinary tract infections (Acute) Anemia (Chronic) CVA (cerebral vascular accident) Diabetes HTN (hypertension) - Tobacco History Second Hand Smoke Exposure: No Smoking Status: Unknown if ever smoked - Alcohol History How Often Do You Have a Drink Containing Alcohol: Unable to Obtain - Substance Use History Substance History: Unable to Obtain - Travel History Recent Travel in the [place] Within the Last 8 Weeks: No Recent Travel Out of the Country Within the Last 8 Weeks: No - Immunization History Tetanus Immunization: Unable to Assess Hx Influenza Vaccine This Season: Unable to Assess Medications and Allergies Active Medications: Active Medications Al Hydroxide/Mg Hydroxide (Milk Of Noemí Maharaj) 30 ml PO Q12H PRN PRN Reason: Mild Constipation Albuterol (Duoneb Neb (Prn)) 1 ampul NEB Q2HR NEB PRN PRN Reason: WHEEZING Bisacodyl (Dulcolax Supp) 10 mg RECTAL DAILY PRN PRN Reason: SEVERE CONSITIPATION Chlorhexidine Gluconate (Chlorhexidine 2% Cloth) 3 pack TOPICAL DAILY@0400 CLAUDE Stop: 04/09/18 03:59 Chlorhexidine Gluconate (Chlorhexidine 2% Cloth) 3 pack TOPICAL DAILY@0400 PRN PRN Reason: Extra cloth needed Stop: 04/09/18 03:59 Famotidine (Pepcid) 10 mg PO BID CLAUDE Famotidine (Pepcid Pf Inj) 10 mg IV.PUSH Q12HR PRN PRN Reason: SEE LABEL COMMENTS Sodium Chloride (Ns Inj) 1,000 mls @ 0 mls/hr IV.SIG BOLUS CLAUDE Sodium Chloride (Ns Inj) 1,000 mls @ 84 mls/hr IV.CONT .[id number] [facility] Last Admin: 04/03/18 07:06 Dose: 84 mls/hr Piperacillin/Tazobactam/Dextrose (Zosyn 3.375 Gm Premix) 50 mls @ 100 mls/hr IV.SIG Q6H CLAUDE Vancomycin HCl 500 mg/ Sodium (Chloride) 100 mls @ 200 mls/hr IV.SIG ONCE ONE Stop: 04/03/18 11:29 Lactulose (Lactulose Liq) 30 ml PO DAILY PRN PRN Reason: SEVERE CONSITIPATION Miscellaneous (Pill Splitter) 1 each OTHER PRN PRN PRN Reason: SEE LABEL COMMENTS Pharmacy Profile Note (Vancomycin Consult Pharmacy) 1 each OTHER UNSCH PRN PRN Reason: Pharmacy to dose Senna/Docusate Sodium (Wendi-Colace) 1 tab PO BID [facility] Sennosides (Senokot) 17.2 mg PO Q12H PRN PRN Reason: Moderate Constipation Sodium Chloride (Ns Flush) 2 ml IV.FLUSH BID CLAUDE Sodium Chloride (Ns Flush) 2 ml IV.FLUSH PRN PRN PRN Reason: FLUSH AFTER USING IV ACCESS Allergies Allergy/AdvReac Type Severity Reaction Status Date / Time *MDRO Multi-Drug Resistant AdvReac Unknown Uncoded 11/10/17 06:21 Organism Home Medications Medication Instructions Recorded Confirmed Type aspirin [Aspirin Low Dose] 81 mg FEEDING TUBE DAILY 01/08/18 04/03/18 History clonidine HCl [Catapres] 0.1 mg FEEDING TUBE TID PRN 01/08/18 04/03/18 History gabapentin 200 mg FEEDING TUBE TID 01/08/18 04/03/18 History hydralazine 100 mg FEEDING TUBE Q8HR 01/08/18 04/03/18 History insulin detemir U-100 [Levemir 5 unit SUB-Q Q12HR 01/08/18 04/03/18 History U-100 Insulin] isosorbide dinitrate 20 mg FEEDING TUBE Q8HR 01/08/18 04/03/18 History lorazepam [Ativan] 0.5 mg FEEDING TUBE Q4HR PRN 01/08/18 04/03/18 History magnesium hydroxide [Milk of 30 ml FEEDING TUBE Q4HR PRN 01/08/18 04/03/18 History Magnesia] metoprolol tartrate 25 mg FEEDING TUBE BID 01/08/18 04/03/18 History morphine concentrate 5 mg FEEDING TUBE Q3H PRN 01/08/18 04/03/18 History multivitamin,he-frzw-hwelooeb 1 tab FEEDING TUBE DAILY 01/08/18 04/03/18 History [Thera-M] omeprazole 20 mg FEEDING TUBE DAILY 01/08/18 04/03/18 History oxycodone-acetaminophen [Percocet] 1 tab FEEDING TUBE Q4H 01/08/18 04/03/18 History risperidone [Risperdal] 0.5 mg FEEDING TUBE Q8HR 01/08/18 04/03/18 History sennosides [senna] 8.6 mg FEEDING TUBE BID 01/08/18 04/03/18 History sertraline [Zoloft] 50 mg FEEDING TUBE DAILY 01/08/18 04/03/18 History Results - Labs CBC & Chem 7: 04/03/18 05:10 04/03/18 05:10 Labs: Short CBC 04/03/18 Range/Units 05:10 WBC 16.3 H (4.0-11.0) th/mm3 Hgb 7.9 L (11.6-15.3) gm/dL Hct 24.1 L (35.0-46.0) % Plt Count 140 L (150-450) th/mm3 BMP 04/03/18 05:10 Sodium 138 Potassium 3.2 L Chloride 99 Carbon Dioxide 27.8 BUN 142 H Creatinine 2.60 H Calcium 8.5 Cardiac Enzymes 04/03/18 Range/Units 05:10 Total Creatine Kinase 103 (26-192) U/L CK-MB (CK-2) Less than 1.0 (0.5-3.6) ng/mL Troponin I Less than 0.02 L (0.02-0.05) ng/mL Liver Function 04/03/18 Range/Units 05:10 Total Bilirubin 0.4 (0.2-1.0) mg/dL AST 29 (15-37) U/L ALT 34 (10-53) U/L Alkaline Phosphatase 99 (45-117) U/L Albumin 2.7 L (3.4-5.0) g/dL Urine 04/03/18 Range/Units 06:30 Urine Color Naila (Yellw/Straw) Urine Clarity Cloudy H (Clear) Urine pH 6.0 (5.0-8.5) Ur Specific [place] 1.015 (1.002-1.035) Urine Protein 100 H (Neg-Trace) mg/dL Urine Glucose (UA) Negative (Negative) mg/dL - Imaging Impressions Chest X-Ray 04/03/18 05:06 CONCLUSION: 1. No acute cardiopulmonary disease. Abdomen/Pelvis CT 04/03/18 05:08 CONCLUSION: 1. Atrophic end-stage left kidney containing coarse calcifications. 2. Right-sided nephroureteral catheter in place with redemonstration of extensive stone encrustation involving the proximal portion of the ureteral stent within the bladder. There are multiple additional stones in the ureter and renal pelvis as well as a dominant staghorn calyceal calcification in the superior pole of the right kidney measuring approximately 2.5 cm. There is persistent mild to moderate hydroureteronephrosis. Consider interventional radiology consultation for possible catheter exchange if there is decreased urine output or if there is concern for urosepsis. 3. Gastrostomy catheter in place. Exam Vital signs: Vital Signs 04/03/18 04:51 04/03/18 05:55 04/03/18 06:03 Temperature 102.9 F H Pulse Rate 94 H 77 77 Respiratory Rate 18 16 Blood Pressure 120/55 L 104/53 L Pulse Oximetry 91 L 98 98 04/03/18 07:36 04/03/18 08:00 04/03/18 08:08 Temperature Pulse Rate 81 62 Respiratory Rate 18 97 H Blood Pressure 120/63 Pulse Oximetry 96 100 04/03/18 08:10 04/03/18 08:17 04/03/18 08:30 Temperature Pulse Rate 76 67 Respiratory Rate 27 H 18 37 H Blood Pressure 113/54 L 98/55 L Pulse Oximetry 100 04/03/18 09:00 04/03/18 09:29 04/03/18 09:30 Temperature Pulse Rate 60 71 Respiratory Rate 14 12 Blood Pressure 103/50 L 75/49 L Pulse Oximetry 100 100 100 04/03/18 09:37 04/03/18 09:40 04/03/18 09:50 Temperature Pulse Rate 70 72 63 Respiratory Rate 12 15 18 Blood Pressure 101/53 L 107/51 L 96/50 L Pulse Oximetry 100 100 100 04/03/18 10:00 04/03/18 10:10 04/03/18 10:20 Temperature 98.9 F Pulse Rate 63 62 65 Respiratory Rate 17 19 84 H Blood Pressure 95/55 L 103/52 L 104/52 L Pulse Oximetry 100 100 100 04/03/18 10:30 04/03/18 10:40 04/03/18 10:50 Temperature Pulse Rate 62 61 63 Respiratory Rate 42 H 118 H 52 H Blood Pressure 96/50 L 98/53 L 104/57 L Pulse Oximetry 100 100 100 04/03/18 11:00 Temperature Pulse Rate 60 Respiratory Rate 137 H Blood Pressure 103/53 L Pulse Oximetry 100 Intake & Output 04/02/18 04/03/18 04/03/18 18:59 06:59 18:59 Intake Total 1100 / 1100 250 / 250 Balance 1100 / 1100 250 / 250 Weight 79.379 kg Intake: IV 1100 / 1100 250 / 250 Zosyn 4.5 GM Premix 4.5 gm In 100 / 100 100 ml @ 200 mls/hr IV.SIG ONCE ONE Rx#:[id number] NS Inj 1,000 ML @ Wide Open IV. 1000 / 1000 SIG BOLUS CLAUDE Rx#:[id number] Vancomycin Inj 1,000 MG In NS 250 / 250 Inj 250 ML @ 250 mls/hr IV.SIG ONCE ONE Rx#:[id number] Narrative: GENERAL: Critically ill female who is lying in bed somnolent SKIN: warm/dry. HEAD: Atraumatic. Normocephalic. EYES: Pupils equal and round on L, R cataract. ENT: No nasal bleeding or discharge. Oral mucosa is dry. Airway is patent. NECK: Trachea midline. No JVD. CARDIOVASCULAR: Regular rate and rhythm. No murmur appreciated. RESPIRATORY: No accessory muscle use. Clear to auscultation. Breath sounds equal bilaterally. GASTROINTESTINAL: Abdomen soft, non-tender, nondistended. PEG in place. Hepatic and splenic margins not palpable. R nephrostomy tube sutured in place with no output NEUROLOGICAL: Lethargic but opens eyes. Left hemiplegia with contractures. Right upper extremity moving spontaneously. Right lower extremity appears hyperextended with slight withdrawal to pain Septic Shock Reassessment Septic shock perfusion: reassessment completed Caprini VTE Risk Assessment Caprini VTE Risk Assessment: Moderate/High Risk (score >= 2) Caprini Risk Assessment Model: Point Value = 1 Point Value = 2 Point Value = 3 Point Value = 5 Age 41-60 Minor surgery BMI > 25 kg/m2 Swollen legs Varicose veins or History of unexplained or recurrent spontaneous Oral contraceptives or hormone replacement Sepsis (< 1 month) Serious lung disease, including pneumonia (< 1 month) Abnormal pulmonary function Acute myocardial infarction Congestive heart failure (< 1 month) History of inflammatory bowel disease Medical patient at bed rest Age 61-74 Arthroscopic surgery Major open surgery (> 45 min) Laparoscopic surgery (> 45 min) Malignancy Confined to bed (> 72 hours) Immobilizing plaster cast Central venous access Age >= 75 History of VTE Family history of VTE Factor V Leiden Prothrombin [id number] Lupus anticoagulant Anticardiolipin antibodies Elevated serum homocysteine Heparin-induced thrombocytopenia Other congenital or acquired thrombophilia Stroke (< 1 month) Elective arthroplasty Hip, pelvis, or leg fracture Acute spinal cord injury (< 1 month) Prophylaxis Regimen: Total Risk Factor Score Risk Level Prophylaxis Regimen 0-1 Low Early ambulation 2 Moderate Order ONE of the following: *Sequential Compression Device (SCD) *Heparin 5000 units SQ BID 3-4 Higher Order ONE of the following medications: *Heparin 5000 units SQ TID *Enoxaparin/Lovenox 40 mg SQ daily (WT < 150 kg, CrCl > 30 mL/min) *Enoxaparin/Lovenox 30 mg SQ daily (WT < 150 kg, CrCl > 10-29 mL/min) *Enoxaparin/Lovenox 30 mg SQ BID (WT < 150 kg, CrCl > 30 mL/min) AND/OR *Sequential Compression Device (SCD) 5 or more Highest Order ONE of the following medications: *Heparin 5000 units SQ TID (Preferred with Epidurals) *Enoxaparin/Lovenox 40 mg SQ daily (WT < 150 kg, CrCl > 30 mL/min) *Enoxaparin/Lovenox 30 mg SQ daily (WT < 150 kg, CrCl > 10-29 mL/min) *Enoxaparin/Lovenox 30 mg SQ BID (WT < 150 kg, CrCl > 30 mL/min) AND *Sequential Compression Device (SCD) Assessment and Plan - Problem List (1) Severe sepsis Code(s): A41.9 - Sepsis, unspecified organism; R65.20 - Severe sepsis without septic shock Status: Acute (2) Acute UTI Code(s): N39.0 - Urinary tract infection, site not specified Status: Acute (3) Acute renal failure superimposed on chronic kidney disease Code(s): N17.9 - Acute kidney failure, unspecified; N18.9 - Chronic kidney disease, unspecified Status: Acute (4) Acute metabolic encephalopathy Code(s): G93.41 - Metabolic encephalopathy Status: Acute (5) Hypertension Code(s): I10 - Essential (primary) hypertension Status: Chronic (6) Diabetes Code(s): E11.9 - Type 2 diabetes mellitus without complications Status: Chronic (7) Nephrostomy tube failure with subsequent urine leak Code(s): N99.522 - Malfunction of incontinent external stoma of urinary tract Status: Chronic (8) Contracture of muscle, left upper arm Code(s): M62.422 - Contracture of muscle, left upper arm Status: Chronic (9) Neurogenic bladder Code(s): N31.9 - Neuromuscular dysfunction of bladder, unspecified Status: Chronic (10) CVA (cerebral vascular accident) Code(s): I63.9 - Cerebral infarction, unspecified Status: Chronic (11) Kidney calculus Code(s): N20.0 - Calculus of kidney Status: Chronic (12) Anemia Code(s): D64.9 - Anemia, unspecified Status: Chronic - Assessment and Plan Plan: NEURO: Acute metabolic encephalopathy Previous left hemiplegia with aphasia -Minimize any sedation -Continue gabapentin -PT OT consult when appropriate RESP: -DuoNeb every 6 hours scheduled and as needed -Aggressive pulmonary toilet CV: Hypotension History of hypertension -Normal saline IV fluids 2 L bolus and 84 mL/h -Home medications of hydralazine clonidine and Imdur will be held -Continue aspirin via PEG tube after IR procedures GI: -N.p.o., IV famotidine : Acute on chronic kidney disease Mild to moderate hydronephrosis on the right with probably dislodged nephrostomy tube Neurogenic bladder -Monitor renal function closely. -Fluid resuscitation as above -IR consulted for nephrostomy tube replacement -Nephrology consult if creatinine not improving ID: Severe sepsis UTI -Received vancomycin and cefepime in the ED, continue Zosyn and vancomycin renally dose -Blood urine cultures HEME: -Monitor CBC, coags ENDO: Type 2 diabetes -Electrolyte replacement per protocol -Sliding scale insulin PROPH: -Bilateral lower extremity SCDs. Lovenox after invasive procedures are completed/IV famotidine LINES: -Utilize peripheral IVs, central line if needed CC time 42 min Patient is at this time critically ill with UTI dislodged nephrostomy tube and severe sepsis. She is at risk of acute deterioration. We will consult palliative care to address goals of care as she was on hospice before Code Status: Full (3) Acute renal failure superimposed on chronic kidney disease Qualifiers: Acute renal failure type: unspecified Chronic kidney disease stage: stage 4 ( severe) Qualified Code(s): N17.9 - Acute kidney failure, unspecified; N18.4 - Chronic kidney disease, stage 4 (severe) (12) Anemia Qualifiers: Anemia type: unspecified type Qualified Code(s): D64.9 - Anemia, unspecified
[2018-04-03] MEDS: Piperacil/Tazo 3.375 GM Premix 50 ML IV.SIG SCH ×2 (11:31→17:22)
[2018-04-03] MEDS: Senna/Docusate Sodium 8.6/50 MG Tablet PO SCH ×2 (11:31→21:45)
[2018-04-03] MEDS: Famotidine 20 MG Tablet PO SCH ×2 (11:31→21:45)
--- NOTE | 2018-04-03 12:54 | P.CONPAL ---
Consult Service: Palliative Care Requesting Physician: Cortney Casillas Reason for Consult: a. To assist with evaluation and management of symptoms including: pain, debility b. To assist medical decision maker(s) with: better understanding of current medical conditions; weighing benefits/burdens of medical treatment options; making medical treatment decisions. Primary Care Provider: Nii Stone MD History of Present Illness History of Present Illness: Ms. Wilson is a 62 [facility] old [facility] resident who presented to [facility] ED on 04/03/18 with altered mental status and leaking nephrostomy tube. 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 She is aphasic at baseline. She is a FULL CODE. Diagnostic data: * Vital signs: Pulse 94, respirations 18, BP 120/55, oxygen saturation 91% on 2 L via nasal cannula, rectal temperature 102.9 * WBC: 16.3, hemoglobin 7.9, hematocrit 24.1, platelets 140, neutrophils 87.0% * PT: 10.7, INR 1.1, APTT 29.3 * Sodium: 138, potassium 3.2, chloride 99, carbon dioxide 27.8, glucose 238, calcium 8.5, magnesium 2.7 * BUN: 142, creatinine 2.60, GFR 19 * Lactic acid: 1.6 * Total bilirubin: 0.4, AST 29, ALT 34, alkaline phosphatase 99 * Total creatine kinase: 103 * CK-MB: <1.0 * Troponin <0.02 * Total protein: 7.5, albumin 2.7 * Urinalysis indicative of UTI * Chest x-ray showed no acute cardiopulmonary disease Patient received 1L normal saline bolus while in the ED and IV antibiotics ( cefepime and vancomycin) were administered. Urine and blood specimens were obtained and sent for cultures. CT abdomen/pelvis revealed atrophic end-stage kidney left kidney containing coarse calcifications; right sided nephroureteral catheter in place with redemonstration of extensive stone encrustation involving the proximal portion of the ureteral stent within the bladder there are multiple additional stones in the ureter and renal pelvis as well as a dominant staghorn calyceal calcification in the superior pole of the right kidney measuring 2.5 cm. There is a persistent mild to moderate hydroureteronephrosis. IR was consulted, per radiology's recommendations, for possible catheter exchange. Patient was started on maintenance IVF as well as renally dosed antibiotics, Vancomycin and Zosyn. Palliative Care was consulted to assist with symptom management and to discuss with the family the benefits and burdens of her current illnesses and the options regarding future care. Message was left for patient's son, Surinder, with palliative care contact information. Awaiting return phone call. Historically both the patient and her son have requested that she remain a FULL CODE. Function/Cognitive Trajectory: Long-term resident at [facility]. She has significant debility , requiring assistance for all ADLs. She has left-sided hemiparesis and speech deficits secondary to CVA x 2. 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 Patient lived with her son for approximately 7 years after the initial stroke. After the patient had the second stroke, she was transferred to a nursing facility because of her increased needs. Review of Systems unobtainable due to mental status PMFSH - History History Provided By: Hole Filler / EMT - Medical History Medical History: Medical History (Last Updated 04/03/18 @ 12:54 by MAXIMILIAN Naik) Anemia Atrial fibrillation CAD (coronary artery disease) CVA (cerebral vascular accident) Chronic kidney disease (CKD) Diabetes History of carotid stenosis History of cholelithiasis Hyperlipidemia Hypertension Neurogenic bladder Osteoarthritis Schizophrenia - Surgical History Surgical History: Surgical History (Last Updated 04/03/18 @ 12:26 by MAXIMILIAN Naik) Hip fracture requiring operative repair History of ankle surgery History of coronary artery stent placement History of tonsillectomy S/P percutaneous endoscopic gastrostomy (PEG) tube placement History of hysterectomy (Resolved) - Family History Family History: Family History (Last Reviewed 04/03/18 @ 12:22 by MAXIMILIAN Naik) Other Hypertension - Social History I have reviewed the patient's Social History: Yes - Tobacco History Second Hand Smoke Exposure: No Tobacco Use In Past 30 Days: No Smoking Status: Former smoker (smoked 1/2 PPD for several years) Tobacco Type: Cigarettes - Alcohol History How Often Do You Have a Drink Containing Alcohol: Never - Substance Use History Substance History: No History of Abuse, Unable to Obtain - Travel History Recent Travel in the [place] Within the Last 8 Weeks: No Recent Travel Out of the Country Within the Last 8 Weeks: No - Immunization History Tetanus Immunization: Unable to Assess Hx Influenza Vaccine This Season: Unable to Assess Medications and Allergies Active Medications: Active Medications Al Hydroxide/Mg Hydroxide (Milk Of Magnesia Liq) 30 ml PO Q12H PRN PRN Reason: Mild Constipation Albuterol (Duoneb Neb (Prn)) 1 ampul NEB Q2HR NEB PRN PRN Reason: WHEEZING Bisacodyl (Dulcolax Supp) 10 mg RECTAL DAILY PRN PRN Reason: SEVERE CONSITIPATION Chlorhexidine Gluconate (Chlorhexidine 2% Cloth) 3 pack TOPICAL DAILY@0400 CLAUDE Stop: 04/09/18 03:59 Chlorhexidine Gluconate (Chlorhexidine 2% Cloth) 3 pack TOPICAL DAILY@0400 PRN PRN Reason: Extra cloth needed Stop: 04/09/18 03:59 Famotidine (Pepcid) 10 mg PO BID [facility] Last Admin: 04/03/18 11:31 Dose: 10 mg Famotidine (Pepcid Pf Inj) 10 mg IV.PUSH Q12HR PRN PRN Reason: SEE LABEL COMMENTS Sodium Chloride (Ns Inj) 1,000 mls @ 0 mls/hr IV.SIG BOLUS LCAUDE Sodium Chloride (Ns Inj) 1,000 mls @ 84 mls/hr IV.CONT .[id number] [facility] Last Admin: 04/03/18 07:06 Dose: 84 mls/hr Piperacillin/Tazobactam/Dextrose (Zosyn 3.375 Gm Premix) 50 mls @ 100 mls/hr IV.SIG Q6H [facility] Last Admin: 04/03/18 11:31 Dose: 100 mls/hr Sodium Chloride (Ns Inj) 1,000 mls @ 0 mls/hr IV.SIG BOLUS CLAUDE Lactulose (Lactulose Liq) 30 ml PO DAILY PRN PRN Reason: SEVERE CONSITIPATION Miscellaneous (Pill Splitter) 1 each OTHER PRN PRN PRN Reason: SEE LABEL COMMENTS Pharmacy Profile Note (Vancomycin Consult Pharmacy) 1 each OTHER UNSCH PRN PRN Reason: Pharmacy to dose Senna/Docusate Sodium (Wendi-Colace) 1 tab PO BID [facility] Last Admin: 04/03/18 11:31 Dose: 1 tab Sennosides (Senokot) 17.2 mg PO Q12H PRN PRN Reason: Moderate Constipation Sodium Chloride (Ns Flush) 2 ml IV.FLUSH BID [facility] Last Admin: 04/03/18 11:31 Dose: 2 ml Sodium Chloride (Ns Flush) 2 ml IV.FLUSH PRN PRN PRN Reason: FLUSH AFTER USING IV ACCESS Allergies Allergy/AdvReac Type Severity Reaction Status Date / Time *MDRO Multi-Drug Resistant AdvReac Unknown Uncoded 11/10/17 06:21 Organism Home Medications Medication Instructions Recorded Confirmed Type aspirin [Aspirin Low Dose] 81 mg FEEDING TUBE DAILY 01/08/18 04/03/18 History clonidine HCl [Catapres] 0.1 mg FEEDING TUBE TID PRN 01/08/18 04/03/18 History gabapentin 200 mg FEEDING TUBE TID 01/08/18 04/03/18 History hydralazine 100 mg FEEDING TUBE Q8HR 01/08/18 04/03/18 History insulin detemir U-100 [Levemir 5 unit SUB-Q Q12HR 01/08/18 04/03/18 History U-100 Insulin] isosorbide dinitrate 20 mg FEEDING TUBE Q8HR 01/08/18 04/03/18 History lorazepam [Ativan] 0.5 mg FEEDING TUBE Q4HR PRN 01/08/18 04/03/18 History magnesium hydroxide [Milk of 30 ml FEEDING TUBE Q4HR PRN 01/08/18 04/03/18 History Magnesia] metoprolol tartrate 25 mg FEEDING TUBE BID 01/08/18 04/03/18 History morphine concentrate 5 mg FEEDING TUBE Q3H PRN 01/08/18 04/03/18 History multivitamin,ll-mbse-dsprzlid 1 tab FEEDING TUBE DAILY 01/08/18 04/03/18 History [Thera-M] omeprazole 20 mg FEEDING TUBE DAILY 01/08/18 04/03/18 History oxycodone-acetaminophen [Percocet] 1 tab FEEDING TUBE Q4H 01/08/18 04/03/18 History risperidone [Risperdal] 0.5 mg FEEDING TUBE Q8HR 01/08/18 04/03/18 History sennosides [senna] 8.6 mg FEEDING TUBE BID 01/08/18 04/03/18 History sertraline [Zoloft] 50 mg FEEDING TUBE DAILY 01/08/18 04/03/18 History Advance Directives Healthcare Surrogate: Yes (Completed 04/12/18) Health Care Surrogate Name and Number: Patient's sonSurinder, is designated as the [facility] decision maker. Documented care wishes: None available Today's verbally stated goals: Patient has limited insight and judgement Family/friends goals: Pending conversations with son. Ethical and Legal Issues: No known ethical are legal issues at this time. Physical Exam Vital Signs: Vital Signs - 24 hr 04/03/18 04:51 04/03/18 05:55 04/03/18 06:03 Temperature 102.9 F H Pulse Rate 94 H 77 77 Respiratory Rate 18 16 Blood Pressure 120/55 L 104/53 L Pulse Oximetry 91 L 98 98 04/03/18 07:36 04/03/18 08:00 04/03/18 08:08 Temperature Pulse Rate 81 62 Respiratory Rate 18 97 H Blood Pressure 120/63 Pulse Oximetry 96 100 04/03/18 08:10 04/03/18 08:17 04/03/18 08:30 Temperature Pulse Rate 76 67 Respiratory Rate 27 H 18 37 H Blood Pressure 113/54 L 98/55 L Pulse Oximetry 100 04/03/18 09:00 04/03/18 09:29 04/03/18 09:30 Temperature Pulse Rate 60 71 Respiratory Rate 14 12 Blood Pressure 103/50 L 75/49 L Pulse Oximetry 100 100 100 04/03/18 09:37 04/03/18 09:40 04/03/18 09:50 Temperature Pulse Rate 70 72 63 Respiratory Rate 12 15 18 Blood Pressure 101/53 L 107/51 L 96/50 L Pulse Oximetry 100 100 100 04/03/18 10:00 04/03/18 10:10 04/03/18 10:20 Temperature 98.9 F Pulse Rate 63 62 65 Respiratory Rate 17 19 84 H Blood Pressure 95/55 L 103/52 L 104/52 L Pulse Oximetry 100 100 100 04/03/18 10:30 04/03/18 10:40 04/03/18 10:50 Temperature Pulse Rate 62 61 63 Respiratory Rate 42 H 118 H 52 H Blood Pressure 96/50 L 98/53 L 104/57 L Pulse Oximetry 100 100 100 04/03/18 11:00 Temperature Pulse Rate 60 Respiratory Rate 137 H Blood Pressure 103/53 L Pulse Oximetry 100 I&O: Intake & Output 04/01/18 04/02/18 04/03/18 04/04/18 06:59 06:59 06:59 06:59 Intake Total 1100 / 1100 250 / 250 Balance 1100 / 1100 250 / 250 Weight 79.379 kg Physical Exam: CONSTITUTIONAL/GENERAL: This is a frail, debilitated female in no acute distress TUBES/LINES/DRAINS: PIV, nasal cannula, nephrostomy tube, PEG tube SKIN: No jaundice, rashes, or lesions. Dressing on left elbow dry and intact. Skin temperature appropriate. Not diaphoretic. HEAD: Atraumatic. Normocephalic. EYES: Eyes closed. Did not attempt open. ENT: Hearing grossly normal. Nose without bleeding or purulent drainage. Oral mucous membranes dry NECK: Trachea midline. Supple, nontender. No palpable thyroid enlargement or nodularity. CARDIOVASCULAR: Regular rate and rhythm without murmurs, gallops, or rubs. No JVD. Peripheral pulses symmetric. RESPIRATORY/CHEST: Symmetric, unlabored respirations. Clear to auscultation. Breath sounds diminished in bases bilaterally. No wheezes, rales, or rhonchi. GASTROINTESTINAL: Abdomen soft, non-tender, nondistended. No guarding. Bowel sounds present. + PEG tube GENITOURINARY: Without palpable bladder distension. Rebolledo catheter in place. MUSCULOSKELETAL: Extremities without clubbing or cyanosis. Pedal edema bilaterally. No obvious deformities. LYMPHATICS: No palpable cervical or supraclavicular adenopathy. NEUROLOGICAL: Patient does not open eyes to verbal or tactile stimuli. Does not follow commands. Unable to make her needs known. Moaning PSYCHIATRIC: No apparent hallucinations or other psychotic thought process. Diagnostic Tests Laboratory: Laboratory Results - last 72 hr 04/03/18 04/03/18 04/03/18 05:10 05:10 05:10 WBC 16.3 H RBC 2.94 L Hgb 7.9 L Hct 24.1 L MCV 82.0 MCH 26.7 L MCHC 32.6 RDW 17.6 H Plt Count 140 L MPV 10.2 Neut % (Auto) 87.0 H Lymph % (Auto) 8.9 L [place] % (Auto) 3.8 Eos % (Auto) 0.1 Baso % (Auto) 0.2 Neut # (Auto) 14.1 H Lymph # (Auto) 1.5 [place] # (Auto) 0.6 Eos # (Auto) 0.0 Baso # (Auto) 0.0 WBC Differential . Differential Comment Auto diff final PT 10.7 INR 1.1 APTT 29.8 Puncture Site Patient Temperature O2 Saturation ABG pH ABG pCO2 ABG pO2 ABG HCO3 ABG O2 Content ABG Base Excess ABG Methemoglobin Soy Test Hemoglobin Carboxyhemoglobin O2 Delivery Device Liter Flow Critical Value Sodium 138 Potassium 3.2 L Chloride 99 Carbon Dioxide 27.8 Anion Gap 11 BUN 142 H Creatinine 2.60 H Estimated GFR 19 L Random Glucose 238 H Lactic Acid Calcium 8.5 Magnesium 2.7 H Total Bilirubin 0.4 AST 29 ALT 34 Alkaline Phosphatase 99 Total Creatine Kinase 103 CK-MB (CK-2) Less than 1.0 Troponin I Less than 0.02 L Total Protein 7.5 Albumin 2.7 L Lipase 70 L Urine Color Urine Clarity Urine pH Ur Specific [place] Urine Protein Urine Glucose (UA) Urine Ketones Urine Occult Blood Urine Nitrate Urine Bilirubin Urine Urobilinogen Ur Leukocyte Esterase Urine RBC Urine WBC Urine WBC Clumps Ur Squamous Epith Cells Ur Transition Epith Cell Amorphous Sediment Urine Bacteria Urine Mucus Micro UA Comment Ur Microscopic Review Urine Culture Comments 04/03/18 04/03/18 04/03/18 05:10 05:35 06:30 WBC RBC Hgb Hct MCV MCH MCHC RDW Plt Count MPV Neut % (Auto) Lymph % (Auto) [place] % (Auto) Eos % (Auto) Baso % (Auto) Neut # (Auto) Lymph # (Auto) [place] # (Auto) Eos # (Auto) Baso # (Auto) WBC Differential Differential Comment PT INR APTT Puncture Site Left radial Patient Temperature 98.6 O2 Saturation 95 ABG pH 7.42 ABG pCO2 43 H ABG pO2 98 ABG HCO3 27 H ABG O2 Content 9.8 L ABG Base Excess 2.9 H ABG Methemoglobin 0.9 Soy Test Present Hemoglobin 7.2 L* Carboxyhemoglobin 2.3 O2 Delivery Device Nasal cannula Liter Flow 2.00 Critical Value Yes Sodium Potassium Chloride Carbon Dioxide Anion Gap BUN Creatinine Estimated GFR Random Glucose Lactic Acid 1.6 Calcium Magnesium Total Bilirubin AST ALT Alkaline Phosphatase Total Creatine Kinase CK-MB (CK-2) Troponin I Total Protein Albumin Lipase Urine Color [place] Urine Clarity Cloudy H Urine pH 6.0 Ur Specific [place] 1.015 Urine Protein 100 H Urine Glucose (UA) Negative Urine Ketones Negative Urine Occult Blood Moderate H Urine Nitrate Negative Urine Bilirubin Negative Urine Urobilinogen Less than 2 Ur Leukocyte Esterase Large H Urine RBC 32 H Urine WBC 166 H Urine WBC Clumps Few H Ur Squamous Epith Cells 5 Ur Transition Epith Cell <1 Amorphous Sediment Rare H Urine Bacteria Many H Urine Mucus Few H Micro UA Comment Cath-culture ind Ur Microscopic Review Not Reportable Urine Culture Comments Cath-cult indicated Result Diagrams: 04/03/18 14:02 04/03/18 05:10 Imaging: Chest X-Ray 04/03/18 05:06 CONCLUSION: 1. No acute cardiopulmonary disease. Abdomen/Pelvis CT 04/03/18 05:08 CONCLUSION: 1. Atrophic end-stage left kidney containing coarse calcifications. 2. Right-sided nephroureteral catheter in place with redemonstration of extensive stone encrustation involving the proximal portion of the ureteral stent within the bladder. There are multiple additional stones in the ureter and renal pelvis as well as a dominant staghorn calyceal calcification in the superior pole of the right kidney measuring approximately 2.5 cm. There is persistent mild to moderate hydroureteronephrosis. Consider interventional radiology consultation for possible catheter exchange if there is decreased urine output or if there is concern for urosepsis. 3. Gastrostomy catheter in place. Assessment and Plan - Disease Oriented Problem List (1) Severe sepsis (2) Acute UTI (3) Acute on chronic renal failure (4) Acute metabolic encephalopathy (5) Hypertension (6) Diabetes (7) Neurogenic bladder (8) CVA (cerebral vascular accident) (9) Kidney calculus (10) Anemia (11) Neurogenic bladder (12) Nephrostomy tube failure with subsequent urine leak Pertinent Non-Medical Issues: Psychosocial: Patient is orginally from [place]. She is a long-term resident of [facility]. She is . She has 1 son. 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 Retired due to medical issues. She lived with her son for many years after her first stroke but required [facility] placement after the second stroke. Spiritual: Partha Legal: Son, Surinder, is the designated health care surrogate decision maker. His name was misspelled as "Dev Wilson" by the person completing the [facility] designation form. Ethical issues impacting care: No know ethical issues impacting care. Important Contacts: SON/[facility] Surinder Wilson [phone] Prognosis: This patient has multiple chronic medical conditions. She has been debilitated and lives in a [facility] long[facility]term. She is currently hospitalized with severe sepsis, UTI and acute on chronic kidney failure due to these multiple conditions, she will likely continue to have ongoing complications, setbacks and recurrent hospitalizations. . Code Status: Full Code Plan: * FULL CODE * Patient lacks insight and judgment. She is not expected to regain capacity for medical decision-making. * Son, Surinder, is the designated health care surrogate decision maker. His name was misspelled as "Dev Wilson" by the person completing the [facility] designation form. * Patient is on [place] hospice with a primary diagnosis of ischemic MCA stroke with left-sided hemiparesis. She is aphasic at baseline. * Discussed patient with RN (Augie) and floor scraper (Stephania) * Attempted to contact patient's son (Surinder Wilson). Message left with palliative care contact information. * Symptom management: Pain: Patient is moaning. Unable to determine if the patient is experiencing pain, the specific location are quality of pain. Contributing factors may include chronic immobility, bedbound status, infection, impaired skin integrity, invasive lines etc. She is on gabapentin 200 mg BID, may have some neuropathic pain. Patient was also receiving Percocet every 4 hours ATC and PRN morphine at home. She is receiving none of these medications currently. Consider restating home medications. Debility: Long-term resident at [facility]. Patient has significant debility, requiring assistance with all ADLs. She has left-sided hemiparesis and speech deficits secondary to CVA x2. 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 Patient lived with her son for approximately 7 years after the initial stroke. When she had the second stroke she was transferred to a nursing facility because of her increased needs. Appreciation Thank you for the opportunity to participate in the care of Cleo Wilson. Attestation Attestation: To help prompt me to consider important information that might be impacting today's encounter and assessment, information from prior notes written by myself or my colleagues may have been "brought forward" into today's note. My signature on this note, however, is an attestation that I personally performed the exam, history, and/or decision-making noted today, and, unless otherwise indicated, the interactions with patient, family, and staff as well as the review of records all occurred today. I also attest that the listed assessment and stated plan reflect my best clinical judgment today based on the combination of historical information, prior notes, and today's exam/ interactions. When time spent is documented, it refers only to time spent today by the signer, or if indicated, combined time spent today by collaborating physician/nurse practitioner.
--- NOTE | 2018-04-03 15:00 | P.CONID ---
History of Present Illness Service: ID Consult date: 04/03/18 Requesting Physician: Cortney Casillas Reason for Consult: UTI, sepsis Primary Care Provider: Nii Stone MD Family Provider: Nii Stone MD Chief Complaint: Altered mental status and fever History of Present Illness: 62 yo female h/o stroke expressive aphasia left-sided hemiplegia with contracted left upper and lower extremity, neurogenic bladder, recurrent UTI, R nephrostomy tube, PEG tube, CKD, anemia, aphasia presetnd yday for mental status change and possible dislodgment of her nephrostomy tube. In ER white count was 16.7 with left shift, and she had a fever of 102.5. Creatinine 2.6 (naseline creatinine is 1.5-2) CT of the abdomen pelvis done in the ED showed right-sided nephroureteral catheter in place with redemonstration of extensive stone encrustation involving the proximal portion of the ureteral stent within the bladder. Multiple additional stones in the ureter and renal pelvis as well as a dominant staghorn calyceal calcification in the superior pole of the right kidney measuring approximately 2.5 cm. There is persistent mild to moderate hydroureteronephrosis. 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 / EMT - Medical History Medical History: Medical History (Last Reviewed 04/03/18 @ 14:54 by Jana Sweeney MD) Anemia Atrial fibrillation CAD (coronary artery disease) CVA (cerebral vascular accident) Chronic kidney disease (CKD) Diabetes History of carotid stenosis History of cholelithiasis Hyperlipidemia Hypertension Neurogenic bladder Osteoarthritis Schizophrenia - Surgical History Surgical History: Surgical History (Last Reviewed 04/03/18 @ 14:54 by Jana Sweeney MD) Hip fracture requiring operative repair History of ankle surgery History of coronary artery stent placement History of tonsillectomy S/P percutaneous endoscopic gastrostomy (PEG) tube placement History of hysterectomy (Resolved) - Family History Family History: Family History (Last Reviewed 04/03/18 @ 14:54 by Jana Sweeney MD) Other Hypertension - Social History I have reviewed the patient's Social History: Yes - Tobacco History Second Hand Smoke Exposure: No Tobacco Use In Past 30 Days: No Smoking Status: Former smoker (smoked 1/2 PPD for several years) Tobacco Type: Cigarettes - Alcohol History How Often Do You Have a Drink Containing Alcohol: Never - Substance Use History Substance History: No History of Abuse, Unable to Obtain - Travel History Recent Travel in the [place] Within the Last 8 Weeks: No Recent Travel Out of the Country Within the Last 8 Weeks: No - Immunization History Tetanus Immunization: Unable to Assess Hx Influenza Vaccine This Season: Unable to Assess Medications and Allergies Active Medications: Active Medications Al Hydroxide/Mg Hydroxide (Milk Of Magnesia Liq) 30 ml PO Q12H PRN PRN Reason: Mild Constipation Albuterol (Duoneb Neb (Prn)) 1 ampul NEB Q2HR NEB PRN PRN Reason: WHEEZING Bisacodyl (Dulcolax Supp) 10 mg RECTAL DAILY PRN PRN Reason: SEVERE CONSITIPATION Chlorhexidine Gluconate (Chlorhexidine 2% Cloth) 3 pack TOPICAL DAILY@0400 CLAUDE Stop: 04/09/18 03:59 Chlorhexidine Gluconate (Chlorhexidine 2% Cloth) 3 pack TOPICAL DAILY@0400 PRN PRN Reason: Extra cloth needed Stop: 04/09/18 03:59 Famotidine (Pepcid) 10 mg PO BID [facility] Last Admin: 04/03/18 11:31 Dose: 10 mg Famotidine (Pepcid Pf Inj) 10 mg IV.PUSH Q12HR PRN PRN Reason: SEE LABEL COMMENTS Sodium Chloride (Ns Inj) 1,000 mls @ 0 mls/hr IV.SIG BOLUS CLAUDE Sodium Chloride (Ns Inj) 1,000 mls @ 84 mls/hr IV.CONT .[id number] [facility] Last Admin: 04/03/18 07:06 Dose: 84 mls/hr Piperacillin/Tazobactam/Dextrose (Zosyn 3.375 Gm Premix) 50 mls @ 100 mls/hr IV.SIG Q6H [facility] Last Infusion: 04/03/18 12:09 Dose: Infused Sodium Chloride (Ns Inj) 1,000 mls @ 0 mls/hr IV.SIG BOLUS CLAUDE Lactulose (Lactulose Liq) 30 ml PO DAILY PRN PRN Reason: SEVERE CONSITIPATION Miscellaneous (Pill Splitter) 1 each OTHER PRN PRN PRN Reason: SEE LABEL COMMENTS Pharmacy Profile Note (Vancomycin Consult Pharmacy) 1 each OTHER UNSCH PRN PRN Reason: Pharmacy to dose Senna/Docusate Sodium (Wendi-Colace) 1 tab PO BID [facility] Last Admin: 04/03/18 11:31 Dose: 1 tab Sennosides (Senokot) 17.2 mg PO Q12H PRN PRN Reason: Moderate Constipation Sodium Chloride (Ns Flush) 2 ml IV.FLUSH BID [facility] Last Admin: 04/03/18 11:31 Dose: 2 ml Sodium Chloride (Ns Flush) 2 ml IV.FLUSH PRN PRN PRN Reason: FLUSH AFTER USING IV ACCESS Allergies Allergy/AdvReac Type Severity Reaction Status Date / Time *MDRO Multi-Drug Resistant AdvReac Unknown Uncoded 11/10/17 06:21 Organism Home Medications Medication Instructions Recorded Confirmed Type aspirin [Aspirin Low Dose] 81 mg FEEDING TUBE DAILY 01/08/18 04/03/18 History clonidine HCl [Catapres] 0.1 mg FEEDING TUBE TID PRN 01/08/18 04/03/18 History gabapentin 200 mg FEEDING TUBE TID 01/08/18 04/03/18 History hydralazine 100 mg FEEDING TUBE Q8HR 01/08/18 04/03/18 History insulin detemir U-100 [Levemir 5 unit SUB-Q Q12HR 01/08/18 04/03/18 History U-100 Insulin] isosorbide dinitrate 20 mg FEEDING TUBE Q8HR 01/08/18 04/03/18 History lorazepam [Ativan] 0.5 mg FEEDING TUBE Q4HR PRN 01/08/18 04/03/18 History magnesium hydroxide [Milk of 30 ml FEEDING TUBE Q4HR PRN 01/08/18 04/03/18 History Magnesia] metoprolol tartrate 25 mg FEEDING TUBE BID 01/08/18 04/03/18 History morphine concentrate 5 mg FEEDING TUBE Q3H PRN 01/08/18 04/03/18 History multivitamin,[id number] 1 tab FEEDING TUBE DAILY 01/08/18 04/03/18 History [Thera-M] omeprazole 20 mg FEEDING TUBE DAILY 01/08/18 04/03/18 History oxycodone-acetaminophen [Percocet] 1 tab FEEDING TUBE Q4H 01/08/18 04/03/18 History risperidone [Risperdal] 0.5 mg FEEDING TUBE Q8HR 01/08/18 04/03/18 History sennosides [senna] 8.6 mg FEEDING TUBE BID 01/08/18 04/03/18 History sertraline [Zoloft] 50 mg FEEDING TUBE DAILY 01/08/18 04/03/18 History Exam Vital signs: Vital Signs 04/03/18 04:51 04/03/18 05:55 04/03/18 06:03 Temperature 102.9 F H Pulse Rate 94 H 77 77 Respiratory Rate 18 16 Blood Pressure 120/55 L 104/53 L Pulse Oximetry 91 L 98 98 04/03/18 07:36 04/03/18 08:00 04/03/18 08:08 Temperature Pulse Rate 81 62 Respiratory Rate 18 97 H Blood Pressure 120/63 Pulse Oximetry 96 100 04/03/18 08:10 04/03/18 08:17 04/03/18 08:30 Temperature Pulse Rate 76 67 Respiratory Rate 27 H 18 37 H Blood Pressure 113/54 L 98/55 L Pulse Oximetry 100 04/03/18 09:00 04/03/18 09:29 04/03/18 09:30 Temperature Pulse Rate 60 71 Respiratory Rate 14 12 Blood Pressure 103/50 L 75/49 L Pulse Oximetry 100 100 100 04/03/18 09:37 04/03/18 09:40 04/03/18 09:50 Temperature Pulse Rate 70 72 63 Respiratory Rate 12 15 18 Blood Pressure 101/53 L 107/51 L 96/50 L Pulse Oximetry 100 100 100 04/03/18 10:00 04/03/18 10:10 04/03/18 10:20 Temperature 98.9 F Pulse Rate 63 62 65 Respiratory Rate 17 19 84 H Blood Pressure 95/55 L 103/52 L 104/52 L Pulse Oximetry 100 100 100 04/03/18 10:30 04/03/18 10:40 04/03/18 10:50 Temperature Pulse Rate 62 61 63 Respiratory Rate 42 H 118 H 52 H Blood Pressure 96/50 L 98/53 L 104/57 L Pulse Oximetry 100 100 100 04/03/18 11:00 04/03/18 11:10 04/03/18 11:20 Temperature Pulse Rate 60 60 59 L Respiratory Rate 137 H 34 H 55 H Blood Pressure 103/53 L 104/56 L 100/54 L Pulse Oximetry 100 100 100 04/03/18 11:30 04/03/18 11:40 04/03/18 11:50 Temperature Pulse Rate 60 61 59 L Respiratory Rate 142 H 124 H 115 H Blood Pressure 115/54 L 108/55 L 101/51 L Pulse Oximetry 100 100 100 04/03/18 12:00 04/03/18 12:10 Temperature Pulse Rate 65 65 Respiratory Rate 33 H 17 Blood Pressure 103/51 L 110/53 L Pulse Oximetry 100 100 Intake & Output 04/02/18 04/03/18 04/03/18 18:59 06:59 18:59 Intake Total 1100 / 1100 400 / 400 Balance 1100 / 1100 400 / 400 Weight 79.379 kg Intake: IV 1100 / 1100 400 / 400 Zosyn 3.375 GM Premix 50 ML @ 50 / 50 100 mls/hr IV.SIG Q6H [facility] Rx#: [id number] Zosyn 4.5 GM Premix 4.5 gm In 100 / 100 100 ml @ 200 mls/hr IV.SIG ONCE ONE Rx#:[id number] NS Inj 1,000 ML @ Wide Open IV. 1000 / 1000 SIG BOLUS [facility] Rx#:[id number] Vancomycin Inj 1,000 MG In NS 250 / 250 Inj 250 ML @ 250 mls/hr IV.SIG ONCE ONE Rx#:[id number] Vancomycin Inj 500 MG In NS Inj 100 / 100 100 ML @ 200 mls/hr IV.SIG ONCE ONE Rx#:[id number] - Constitutional mild distress (moaning during exam) - Routine HEENT Exam Head: Present: normocephalic, atraumatic Eye: Present: EOMI, PERRL. Absent: conjunctival icterus, scleral injection ENT: Present: mucous membranes dry. Absent: dentition normal (edentulous) - Routine Neck Exam Absent: JVD, lymphadenopathy - Routine Respiratory Exam Present: decreased breath sounds, CTA bilaterally. Absent: accessory muscle use , rales, rhonchi - Routine Cardiovascular Exam Present: RRR, S1, S2. Absent: murmur, gallop - Routine Abdominal Exam Present: soft, normoactive bowel sounds, tenderness (grimacing to palpation), distended, ostomy (PEG in place - site OK) - Routine Exam Comments: R nephrostomy in place with small amount of purulencde in the bag. NO urine - Routine Extremities Exam Present: edema (pedal trace ), normal capillary refill. Absent: cyanosis, clubbing Comments: contracted LUE and b/l foot drop - Routine Skin Exam Present: warm. Absent: cyanosis, rash - Routine Neurological Exam Present: motor deficit (not moving L side - at basleine). Absent: alert, oriented X3 - Routine Psychiatric Exam Present: unable to assess Results - Labs CBC & Chem 7: 04/03/18 05:10 04/03/18 05:10 Labs: Laboratory Results - last 24 hr 04/03/18 04/03/18 04/03/18 05:10 05:10 05:10 WBC 16.3 H RBC 2.94 L Hgb 7.9 L Hct 24.1 L MCV 82.0 MCH 26.7 L MCHC 32.6 RDW 17.6 H Plt Count 140 L MPV 10.2 Neut % (Auto) 87.0 H Lymph % (Auto) 8.9 L [place] % (Auto) 3.8 Eos % (Auto) 0.1 Baso % (Auto) 0.2 Neut # (Auto) 14.1 H Lymph # (Auto) 1.5 [place] # (Auto) 0.6 Eos # (Auto) 0.0 Baso # (Auto) 0.0 WBC Differential . Differential Comment Auto diff final PT 10.7 INR 1.1 APTT 29.8 Puncture Site Patient Temperature O2 Saturation ABG pH ABG pCO2 ABG pO2 ABG HCO3 ABG O2 Content ABG Base Excess ABG Methemoglobin Soy Test Hemoglobin Carboxyhemoglobin O2 Delivery Device Liter Flow Critical Value Sodium 138 Potassium 3.2 L Chloride 99 Carbon Dioxide 27.8 Anion Gap 11 BUN 142 H Creatinine 2.60 H Estimated GFR 19 L POC Glucose Random Glucose 238 H Lactic Acid Calcium 8.5 Magnesium 2.7 H Total Bilirubin 0.4 AST 29 ALT 34 Alkaline Phosphatase 99 Total Creatine Kinase 103 CK-MB (CK-2) Less than 1.0 Troponin I Less than 0.02 L Total Protein 7.5 Albumin 2.7 L Lipase 70 L Urine Color Urine Clarity Urine pH Ur Specific [place] Urine Protein Urine Glucose (UA) Urine Ketones Urine Occult Blood Urine Nitrate Urine Bilirubin Urine Urobilinogen Ur Leukocyte Esterase Urine RBC Urine WBC Urine WBC Clumps Ur Squamous Epith Cells Ur Transition Epith Cell Amorphous Sediment Urine Bacteria Urine Mucus Micro UA Comment Ur Microscopic Review Urine Culture Comments 04/03/18 04/03/18 04/03/18 05:10 05:35 06:30 WBC RBC Hgb Hct MCV MCH MCHC RDW Plt Count MPV Neut % (Auto) Lymph % (Auto) [place] % (Auto) Eos % (Auto) Baso % (Auto) Neut # (Auto) Lymph # (Auto) [place] # (Auto) Eos # (Auto) Baso # (Auto) WBC Differential Differential Comment PT INR APTT Puncture Site Left radial Patient Temperature 98.6 O2 Saturation 95 ABG pH 7.42 ABG pCO2 43 H ABG pO2 98 ABG HCO3 27 H ABG O2 Content 9.8 L ABG Base Excess 2.9 H ABG Methemoglobin 0.9 Soy Test Present Hemoglobin 7.2 L* Carboxyhemoglobin 2.3 O2 Delivery Device Nasal cannula Liter Flow 2.00 Critical Value Yes Sodium Potassium Chloride Carbon Dioxide Anion Gap BUN Creatinine Estimated GFR POC Glucose Random Glucose Lactic Acid 1.6 Calcium Magnesium Total Bilirubin AST ALT Alkaline Phosphatase Total Creatine Kinase CK-MB (CK-2) Troponin I Total Protein Albumin Lipase Urine Color [place] Urine Clarity Cloudy H Urine pH 6.0 Ur Specific [place] 1.015 Urine Protein 100 H Urine Glucose (UA) Negative Urine Ketones Negative Urine Occult Blood Moderate H Urine Nitrate Negative Urine Bilirubin Negative Urine Urobilinogen Less than 2 Ur Leukocyte Esterase Large H Urine RBC 32 H Urine WBC 166 H Urine WBC Clumps Few H Ur Squamous Epith Cells 5 Ur Transition Epith Cell <1 Amorphous Sediment Rare H Urine Bacteria Many H Urine Mucus Few H Micro UA Comment Cath-culture ind Ur Microscopic Review Not Reportable Urine Culture Comments Cath-cult indicated 04/03/18 12:24 WBC RBC Hgb Hct MCV MCH MCHC RDW Plt Count MPV Neut % (Auto) Lymph % (Auto) [place] % (Auto) Eos % (Auto) Baso % (Auto) Neut # (Auto) Lymph # (Auto) [place] # (Auto) Eos # (Auto) Baso # (Auto) WBC Differential Differential Comment PT INR APTT Puncture Site Patient Temperature O2 Saturation ABG pH ABG pCO2 ABG pO2 ABG HCO3 ABG O2 Content ABG Base Excess ABG Methemoglobin Soy Test Hemoglobin Carboxyhemoglobin O2 Delivery Device Liter Flow Critical Value Sodium Potassium Chloride Carbon Dioxide Anion Gap BUN Creatinine Estimated GFR POC Glucose 189 H Random Glucose Lactic Acid Calcium Magnesium Total Bilirubin AST ALT Alkaline Phosphatase Total Creatine Kinase CK-MB (CK-2) Troponin I Total Protein Albumin Lipase Urine Color Urine Clarity Urine pH Ur Specific [place] Urine Protein Urine Glucose (UA) Urine Ketones Urine Occult Blood Urine Nitrate Urine Bilirubin Urine Urobilinogen Ur Leukocyte Esterase Urine RBC Urine WBC Urine WBC Clumps Ur Squamous Epith Cells Ur Transition Epith Cell Amorphous Sediment Urine Bacteria Urine Mucus Micro UA Comment Ur Microscopic Review Urine Culture Comments - Imaging Impressions Chest X-Ray 04/03/18 05:06 CONCLUSION: 1. No acute cardiopulmonary disease. Abdomen/Pelvis CT 04/03/18 05:08 CONCLUSION: 1. Atrophic end-stage left kidney containing coarse calcifications. 2. Right-sided nephroureteral catheter in place with redemonstration of extensive stone encrustation involving the proximal portion of the ureteral stent within the bladder. There are multiple additional stones in the ureter and renal pelvis as well as a dominant staghorn calyceal calcification in the superior pole of the right kidney measuring approximately 2.5 cm. There is persistent mild to moderate hydroureteronephrosis. Consider interventional radiology consultation for possible catheter exchange if there is decreased urine output or if there is concern for urosepsis. 3. Gastrostomy catheter in place. Assessment and Plan - Plan UTI, complicated - pt with dislodged R sided nephrostomy Sepsis CVA with non verbal bedridden status ARF on CKD cont zosyn, vanco will adjust abx per cultures fu blood and urine cultures untilearl vargas Agree with IR procedure harshil Casillas
[2018-04-03 15:17] LABS: Hematocrit 25.8 % (35.0-46.0); Hemoglobin 8.2 gm/dL (11.6-15.3); Mean Corpuscular HGB Conc 31.6 % (32.0-36.0); Mean Corpuscular Hemoglobin 26.3 pg (27.0-34.0); Mean Corpuscular Volume 83.2 fL (80.0-100.0); Mean Platelet Volume 10.7 fL (7.0-11.0); Platelet Count 121 th/mm3 (150-450); Red Blood Count 3.11 mil/mm3 (4.00-5.30); Red Cell Distribution Width 17.4 % (11.6-17.2); White Blood Count 14.9 th/mm3 (4.0-11.0)
--- NOTE | 2018-04-03 16:38 | P.RAD ---
Post Procedure Progress Note - Pre Procedure Diagnosis (1) Nephrostomy tube displaced - Post Procedure Diagnosis (1) Nephrostomy tube displaced - Procedure Information Procedure Date: 04/03/18 Supervising Radiologist: Chetan Flores Jr, MD Anesthesia: Other - Plan of Activity Patient to Unit: Nursing Unit Patient Condition: Good See PACS Report for procedural detail/treatment. Drainage Procedure Fluoroscopy right Ureteral Stent Replacement Mosotho Tube Size: 8 Drainage: Harmony drainage Findings: Pt has dislodged right nephroureteral stent. Replaced with new 8F nephro- ureteral stent. Sutured in place.
[2018-04-03] MEDS ORDERED: Iohexol 350 MG/ML 50 ML Vial (for Rad Diag) IVCONTRAST ONE (17:44)
--- NOTE | 2018-04-03 18:29 | ECG ---
Date Performed: 04/03/2018 Time Performed: 06:03:00 PTAGE: 62 years EKG: Sinus rhythm VOLTAGE CRITERIA FOR LVH NONSPECIFIC T-WAVE ABNORMALITY SINCE PRIOR TRACING, THE NONSPECIFIC ST-T WA VE CHANGES ARE NEW. CLINICAL CORRELATION ADVISED. ABNORMAL ECG PREVIOUS TRACING : 11/18/2017 00.17 DOCTOR: Farida Boyle Interpretating Date/Time 04/03/2018 18:28:51
[2018-04-04 03:57] LABS: Baso % (Auto) 0.4 % (0.0-2.0); Eos # (Auto) 0.2 th/mm3 (0.0-0.4); Eos % (Auto) 2.4 % (0.0-4.0); Hematocrit 26.1 % (35.0-46.0); Hemoglobin 8.4 gm/dL (11.6-15.3); Lymph % (Auto) 10.3 % (9.0-44.0); Mean Corpuscular HGB Conc 32.3 % (32.0-36.0); Mean Corpuscular Hemoglobin 26.9 pg (27.0-34.0); Mean Corpuscular Volume 83.2 fL (80.0-100.0); Mono # (Auto) 0.4 th/mm3 (0.0-0.9); Mono % (Auto) 3.8 % (0.0-8.0); Neut # (Auto) 8.2 th/mm3 (1.8-7.7); Neut % (Auto) 83.1 % (16.0-70.0); Platelet Count 126 th/mm3 (150-450); Red Blood Count 3.14 mil/mm3 (4.00-5.30); Red Cell Distribution Width 17.7 % (11.6-17.2); White Blood Count 9.8 th/mm3 (4.0-11.0)
[2018-04-04] MEDS ORDERED: Chlorhexidine Gluconate 2% 1 Pack (2 Cloths) TOPICAL PRN (04:00)
[2018-04-04 04:29] LABS: Alanine Aminotransferase 28 U/L (10-53); Albumin 2.4 g/dL (3.4-5.0); Alkaline Phosphatase 90 U/L (45-117); Anion Gap 12 meq/L (5-15); Aspartate Aminotransferase 17 U/L (15-37); Blood Urea Nitrogen 106 mg/dL (7-18); Calcium 8.1 mg/dL (8.5-10.1); Carbon Dioxide 28.5 meq/L (21.0-32.0); Chloride 112 meq/L (98-107); Glomerular Filtration Rate 29 mL/min (>89); Glucose,Random 126 mg/dL (74-106); Magnesium 2.4 mg/dL (1.5-2.5); Potassium 3.2 meq/L (3.5-5.1); Sodium 152 meq/L (136-145); Total Protein 7.4 g/dL (6.4-8.2); Vancomycin,Random 18.8 Comment
--- NOTE | 2018-04-04 05:47 | XR ---
EXAM DATE: 04/04/2018 6:54 AM EDT AGE/SEX: 62 years / Female INDICATIONS: Shortness of breath CLINICAL DATA: This is the patient's subsequent encounter. Patient reports that signs and symptoms h ave been present for 2 days and indicates a pain score of Nonresponsive. MEDICAL/SURGICAL HISTORY: . Hypertension. Diabetes. Gastroesophageal reflux disease. Renal ston e. Nephrostomy tube, right. COMPARISON: [facility] – [place], CHEST 1V SINGLE AP, 04/03/2018. . FINDINGS: The cardiac silhouette is enlarged in transverse diameter. The aortic knob is prominent with tortuosi ty of the descending thoracic aorta. The lungs are free of acute parenchymal opacity. No pulmonary n odules or pleural effusions are identified. CONCLUSION: Cardiomegaly. No acute pulmonary disease. Electronically signed by: Lexa Glass MD 04/04/2018 5:45 AM EDT
[2018-04-04] MEDS: Piperacil/Tazo 3.375 GM Premix 50 ML IV.SIG SCH ×4 (07:32→16:03)
[2018-04-04] MEDS: Chlorhexidine Gluconate 2% 1 Pack (2 Cloths) TOPICAL SCH (07:33)
[2018-04-04] MEDS: Senna/Docusate Sodium 8.6/50 MG Tablet PO SCH ×2 (08:01→21:42)
[2018-04-04] MEDS: Famotidine 20 MG Tablet PO SCH ×2 (08:01→21:42)
--- NOTE | 2018-04-04 08:27 | IR ---
EXAM DATE: 04/03/2018 12:00 AM EDT AGE/SEX: 62 years / Female INDICATIONS: Patient presents with right nephroureteral stent dislodged in need of exchange. CLINICAL DATA: This is the patient's initial encounter. Patient reports that signs and symptoms have been present for 1 day and indicates a pain score of Nonresponsive. MEDICAL/SURGICAL HISTORY: Diabetes. Gastroesophageal reflux disease. Hypertension. CVA, Anem ia, History of frequent urinary tract infections, Kidney calculus, neurogenic bladder Nephrostomy t ube, right. Bilateral Hip Surgery COMPARISON: . FLUORO TIME (min): 1.2 IMAGE SERIES: 2 CONTRAST (cc): 10cc Omnipaque (iohexol) 350 DEVICE(S): 8 Burkin[place] 8x28 Nephroureteral Catheter . . PROCEDURE: 1. Antegrade percutaneous pyelogram. 2. Nephroureteral catheter exchange. 3. Conscious sedation with continuous EKG and oximetry monitoring. The risks, benefits and alternatives to the procedure were explained and verbal and written consent w as obtained. The site was prepped in sterile fashion. Full sterile technique was used, including ca p, mask, sterile gloves and gown and a large sterile sheet. Hand hygiene and 2% chlorhexidine and/or betadine/alcohol prep was utilized per protocol for cutaneous antisepsis. The skin and subcutaneous tissues were infiltrated with local anesthetic solution. Fluoroscopic evaluation of the original nephroureteral catheter on the right side shows the tube to h ave retracted considerably. The distal cope now resides at the [facility]. The catheter was ligated and cara lilo over a wire. A new 8 Burkin[place] nephroureteral catheter was appropriately positioned. The prescribed nephroureteral catheter was placed with the proximal portion within the renal pelvis and the distal e xtent in the urinary bladder. Injection of positive contrast demonstrates good position of the citlaly ter. The catheter was sutured in place using 2-0 silk suture. No hematuria noted. An existing calcifi ed ureteral stent which is nonfunctional is noted. Conscious sedation was performed with the prescribed dosages and duration as above in the presence of an independent trained radiology nurse to assist in the monitoring of the patient. EKG and oximetry remained stable throughout the procedure. The patient tolerated the procedure well and there were n o complications. The patient was sent to post anesthesia recovery in stable condition. CONCLUSION: 1. Uncomplicated right nephroureteral catheter replacement as above. Electronically signed by: Chetan Flores MD 04/04/2018 8:25 AM EDT
[2018-04-04] MEDS: Sodium Chloride 0.45 % Inj 1,000 ML IV.CONT SCH ×2 (08:40→21:43)
--- NOTE | 2018-04-04 08:51 | P.PNIM ---
Subjective Interval history: Patient is nonverbal. Appears comfortable. Physical Exam Vital signs: Vital Signs 04/03/18 09:00 04/03/18 09:29 04/03/18 09:30 Temperature Pulse Rate 60 71 Respiratory Rate 14 12 Blood Pressure 103/50 L 75/49 L Pulse Oximetry 100 100 100 04/03/18 09:37 04/03/18 09:40 04/03/18 09:50 Temperature Pulse Rate 70 72 63 Respiratory Rate 12 15 18 Blood Pressure 101/53 L 107/51 L 96/50 L Pulse Oximetry 100 100 100 04/03/18 10:00 04/03/18 10:10 04/03/18 10:20 Temperature 98.9 F Pulse Rate 63 62 65 Respiratory Rate 17 19 84 H Blood Pressure 95/55 L 103/52 L 104/52 L Pulse Oximetry 100 100 100 04/03/18 10:30 04/03/18 10:40 04/03/18 10:50 Temperature Pulse Rate 62 61 63 Respiratory Rate 42 H 118 H 52 H Blood Pressure 96/50 L 98/53 L 104/57 L Pulse Oximetry 100 100 100 04/03/18 11:00 04/03/18 11:10 04/03/18 11:20 Temperature Pulse Rate 60 60 59 L Respiratory Rate 137 H 34 H 55 H Blood Pressure 103/53 L 104/56 L 100/54 L Pulse Oximetry 100 100 100 04/03/18 11:30 04/03/18 11:40 04/03/18 11:50 Temperature Pulse Rate 60 61 59 L Respiratory Rate 142 H 124 H 115 H Blood Pressure 115/54 L 108/55 L 101/51 L Pulse Oximetry 100 100 100 04/03/18 12:00 04/03/18 12:10 04/03/18 12:20 Temperature Pulse Rate 65 65 65 Respiratory Rate 33 H 17 107 H Blood Pressure 103/51 L 110/53 L 110/55 L Pulse Oximetry 100 100 100 04/03/18 12:30 04/03/18 12:40 04/03/18 12:50 Temperature Pulse Rate 65 64 65 Respiratory Rate 137 H 129 H 23 Blood Pressure 111/53 L 98/54 L 97/52 L Pulse Oximetry 100 100 100 04/03/18 13:00 04/03/18 13:10 04/03/18 13:20 Temperature Pulse Rate 64 62 65 Respiratory Rate 63 H 137 H 51 H Blood Pressure 104/52 L 106/57 L 119/56 L Pulse Oximetry 100 100 100 04/03/18 13:30 04/03/18 13:40 04/03/18 13:50 Temperature Pulse Rate 59 L 55 L 55 L Respiratory Rate 126 H 134 H 171 H Blood Pressure 113/55 L 119/56 L 107/53 L Pulse Oximetry 100 100 100 04/03/18 14:00 04/03/18 14:10 04/03/18 14:20 Temperature Pulse Rate 58 L 55 L 57 L Respiratory Rate 122 H 112 H 153 H Blood Pressure 107/56 L 114/57 L 110/51 L Pulse Oximetry 100 100 100 04/03/18 14:30 04/03/18 14:40 04/03/18 14:50 Temperature Pulse Rate 53 L 53 L 56 L Respiratory Rate 162 H 162 H 112 H Blood Pressure 105/54 L 107/56 L 117/58 L Pulse Oximetry 100 100 100 04/03/18 15:00 04/03/18 15:05 04/03/18 15:10 Temperature Pulse Rate 63 60 59 L Respiratory Rate 46 H 15 113 H Blood Pressure 133/62 127/60 Pulse Oximetry 100 97 100 04/03/18 15:21 04/03/18 15:30 04/03/18 15:40 Temperature Pulse Rate 60 54 L 54 L Respiratory Rate 135 H 149 H 87 H Blood Pressure 127/76 117/57 L 122/56 L Pulse Oximetry 100 100 100 04/03/18 16:00 04/03/18 17:06 04/03/18 17:07 Temperature Pulse Rate 56 L 56 L Respiratory Rate 18 115 H Blood Pressure 125/55 L Pulse Oximetry 04/03/18 17:10 04/03/18 17:20 04/03/18 17:30 Temperature Pulse Rate 56 L 54 L 50 L Respiratory Rate 122 H 169 H 139 H Blood Pressure 119/56 L 120/56 L 111/54 L Pulse Oximetry 100 100 04/03/18 17:40 04/03/18 17:50 04/03/18 18:00 Temperature Pulse Rate 51 L 51 L 58 L Respiratory Rate 143 H 140 H 121 H Blood Pressure 117/57 L 120/54 L 129/58 L Pulse Oximetry 100 100 100 04/03/18 18:20 04/03/18 18:30 04/03/18 18:40 Temperature Pulse Rate 57 L 55 L 54 L Respiratory Rate 34 H 118 H 112 H Blood Pressure 121/60 118/56 L 125/58 L Pulse Oximetry 100 98 100 04/03/18 18:50 04/03/18 19:00 04/03/18 19:10 Temperature Pulse Rate 54 L 54 L 53 L Respiratory Rate 89 H 119 H 128 H Blood Pressure 125/60 125/61 136/57 L Pulse Oximetry 100 100 100 04/03/18 19:20 04/03/18 19:30 04/03/18 19:40 Temperature Pulse Rate 52 L 51 L 54 L Respiratory Rate 110 H 154 H 141 H Blood Pressure 130/59 L 130/60 139/60 Pulse Oximetry 100 100 100 04/03/18 19:50 04/03/18 20:00 04/03/18 20:10 Temperature 97.9 F Pulse Rate 55 L 56 L 54 L Respiratory Rate 116 H 125 H 112 H Blood Pressure 130/60 141/64 H 129/56 L Pulse Oximetry 100 96 100 04/03/18 20:20 04/03/18 20:30 04/03/18 20:40 Temperature Pulse Rate 54 L 53 L 59 L Respiratory Rate 170 H 160 H 105 H Blood Pressure 127/60 126/63 133/60 Pulse Oximetry 100 100 99 04/03/18 20:50 04/03/18 21:00 04/03/18 21:10 Temperature Pulse Rate 51 L 50 L 49 L Respiratory Rate 35 H 20 47 H Blood Pressure 130/60 127/60 131/60 Pulse Oximetry 100 100 100 04/03/18 21:20 04/03/18 21:30 04/03/18 21:40 Temperature Pulse Rate 53 L 53 L 58 L Respiratory Rate 79 H 103 H 16 Blood Pressure 120/60 155/66 H 139/63 Pulse Oximetry 100 100 100 04/03/18 22:00 04/03/18 22:30 04/03/18 23:00 Temperature Pulse Rate 55 L 51 L 51 L Respiratory Rate 19 12 15 Blood Pressure 122/58 L 126/61 111/53 L Pulse Oximetry 100 100 100 04/03/18 23:31 04/04/18 00:00 04/04/18 01:00 Temperature 99.2 F Pulse Rate 54 L 63 59 L Respiratory Rate 13 14 16 Blood Pressure 141/65 H 112/60 97/53 L Pulse Oximetry 100 96 94 L 04/04/18 02:00 04/04/18 03:00 04/04/18 04:00 Temperature 99.2 F Pulse Rate 51 L 52 L 63 Respiratory Rate 18 20 14 Blood Pressure 128/60 135/63 112/60 Pulse Oximetry 97 98 96 04/04/18 05:00 04/04/18 06:00 04/04/18 07:00 Temperature Pulse Rate 61 51 L 58 L Respiratory Rate 22 18 24 Blood Pressure 128/50 L 128/60 113/58 L Pulse Oximetry 98 97 95 Intake & Output 04/03/18 04/04/18 04/04/18 18:59 06:59 18:59 Intake Total 450 / 450 843 / 843 150 / 150 Output Total 250 / 250 1300 / 1300 Balance 200 / 200 -457 / -457 150 / 150 Intake: IV 450 / 450 150 / 150 NS Inj 1,000 ML @ 84 mls/hr IV. 50 / 50 CONT .[id number] [facility] Rx#:[id number] Zosyn 3.375 GM Premix 50 ML @ 100 / 100 100 / 100 100 mls/hr IV.SIG Q6H [facility] Rx#: [id number] Vancomycin Inj 1,000 MG In NS 250 / 250 Inj 250 ML @ 250 mls/hr IV.SIG ONCE ONE Rx#:[id number] Vancomycin Inj 500 MG In NS Inj 100 / 100 100 ML @ 200 mls/hr IV.SIG ONCE ONE Rx#:[id number] Other 843 / 843 Output: Urine Amount (Stoma) 250 / 250 1300 / 1300 Nephrostomy Tube Right 250 / 250 1300 / 1300 Other: # Bowel Movements 0 0 Narrative: GENERAL: Patient lying in bed. Appears comfortable. Nonverbal. Opens eyes to verbal stimulation. SKIN: Warm and dry. HEAD: Normocephalic. EYES: No scleral icterus. No injection or drainage. NECK: Supple, trachea midline. No JVD. CARDIOVASCULAR: Regular rate and rhythm without murmurs, gallops, or rubs. RESPIRATORY: Breath sounds equal bilaterally. No accessory muscle use. GASTROINTESTINAL: Abdomen soft, non-tender, nondistended. PEG tube in place without surrounding erythema or leakage. Nephrostomy tube in place. MUSCULOSKELETAL: No cyanosis, or edema. Patient only moves right upper extremity. Contractures in other extremities BACK: Nontender without obvious deformity. No CVA tenderness. GENERAL: Critically ill female who is lying in bed somnolent SKIN: warm/dry. HEAD: Atraumatic. Normocephalic. EYES: Pupils equal and round on L, R cataract. ENT: No nasal bleeding or discharge. Oral mucosa is dry. Airway is patent. NECK: Trachea midline. No JVD. CARDIOVASCULAR: Regular rate and rhythm. No murmur appreciated. RESPIRATORY: No accessory muscle use. Clear to auscultation. Breath sounds equal bilaterally. GASTROINTESTINAL: Abdomen soft, non-tender, nondistended. PEG in place. Hepatic and splenic margins not palpable. R nephrostomy tube sutured in place with no output NEUROLOGICAL: Lethargic but opens eyes. Left hemiplegia with contractures. Right upper extremity moving spontaneously. Right lower extremity appears hyperextended with slight withdrawal to pain Results - Labs CBC & Chem 7: 04/04/18 03:21 04/04/18 03:21 Laboratory Results - last 24 hr 04/03/18 04/03/18 04/03/18 09:00 12:24 14:02 WBC 14.9 H RBC 3.11 L Hgb 8.2 L Hct 25.8 L MCV 83.2 MCH 26.3 L MCHC 31.6 L RDW 17.4 H Plt Count 121 L MPV 10.7 Neut % (Auto) Lymph % (Auto) [place] % (Auto) Eos % (Auto) Baso % (Auto) Neut # (Auto) Lymph # (Auto) [place] # (Auto) Eos # (Auto) Baso # (Auto) WBC Differential Differential Comment Sodium Potassium Chloride Carbon Dioxide Anion Gap BUN Creatinine Estimated GFR POC Glucose 189 H Random Glucose Calcium Magnesium Total Bilirubin AST ALT Alkaline Phosphatase Total Protein Albumin Nasal Screen MRSA (PCR) Not detected Random Vancomycin 04/04/18 04/04/18 03:21 03:21 WBC 9.8 RBC 3.14 L Hgb 8.4 L Hct 26.1 L MCV 83.2 MCH 26.9 L MCHC 32.3 RDW 17.7 H Plt Count 126 L MPV 10.0 Neut % (Auto) 83.1 H Lymph % (Auto) 10.3 [place] % (Auto) 3.8 Eos % (Auto) 2.4 Baso % (Auto) 0.4 Neut # (Auto) 8.2 H Lymph # (Auto) 1.0 [place] # (Auto) 0.4 Eos # (Auto) 0.2 Baso # (Auto) 0.0 WBC Differential . Differential Comment Auto diff final Sodium 152 H D Potassium 3.2 L Chloride 112 H D Carbon Dioxide 28.5 Anion Gap 12 BUN 106 H Creatinine 1.77 H Estimated GFR 29 L POC Glucose Random Glucose 126 H D Calcium 8.1 L Magnesium 2.4 Total Bilirubin 0.4 AST 17 ALT 28 Alkaline Phosphatase 90 Total Protein 7.4 Albumin 2.4 L Nasal Screen MRSA (PCR) Random Vancomycin 18.8 Microbiology 04/03/18 05:05 Blood - Peripheral Aerobic Blood Culture - Preliminary gram positive cocci 04/03/18 05:05 Blood - Peripheral Anaerobic Blood Culture - Preliminary gram positive cocci 04/03/18 05:10 Blood - Peripheral Aerobic Blood Culture - Preliminary gram positive cocci 04/03/18 05:10 Blood - Peripheral Anaerobic Blood Culture - Preliminary gram positive cocci - Imaging Impressions Ureterogram 04/03/18 00:00 CONCLUSION: 1. Uncomplicated right nephroureteral catheter replacement as above. Chest X-Ray 04/04/18 06:54 CONCLUSION: Cardiomegaly. No acute pulmonary disease. Assessment and Plan - Plan NEURO: Acute metabolic encephalopathy Previous left hemiplegia with aphasia -Minimize any sedation -Continue gabapentin -PT OT consult when appropriate RESP: -DuoNeb every 6 hours scheduled and as needed -Aggressive pulmonary toilet CV: Hypotension History of hypertension -Normal saline IV fluids 2 L bolus and 84 mL/h -Home medications of hydralazine clonidine and Imdur will be held -Continue aspirin via PEG tube after IR procedures GI: -N.p.o., IV famotidine : Acute on chronic kidney disease Mild to moderate hydronephrosis on the right with probably dislodged nephrostomy tube Neurogenic bladder Hypernatremia -Monitor renal function closely. -Fluid resuscitation as above -IR consulted for nephrostomy tube replacement -Nephrology consult if creatinine not improving = 04/04. Creatinine 1.7 from 2.6 yesterday. Sodium has increased significantly. Will switch to half-normal saline. recheck of labs. Discussed with nurse. Appreciate assistance. ID: Severe sepsis UTI Gram-negative bacteremia. -Received vancomycin and cefepime in the ED, continue Zosyn and vancomycin renally dose -Blood urine cultures = 04/04. Gram-negative bacteremia. We will repeat cultures. ID following.. No antibiotics. Follow-up cultures. Appreciate assistance. HEME: -Monitor CBC, coags ENDO: Type 2 diabetes -Electrolyte replacement per protocol -Sliding scale insulin PROPH: -Bilateral lower extremity SCDs. Lovenox after invasive procedures are completed/IV famotidine LINES: -Utilize peripheral IVs, central line if needed Palliative care following.
[2018-04-04] MEDS: Sod Chloride 0.9% Inj 1,000 ML IV.CONT SCH (10:35)
[2018-04-04 12:00] LABS: Calcium 8.9 mg/dL (8.5-10.1); Carbon Dioxide 26.5 meq/L (21.0-32.0)
[2018-04-04] MEDS ORDERED: Vancomycin Inj 1,250 MG in Sodium Chlor 0.9% Inj 250 ML IV.SIG SCH (14:00)
[2018-04-04] MEDS: Potassium Chlor 10 mEq Premix 10 MEQ/100 ML PIGGYBACK IV.SIG SCH ×3 (14:13→16:03)
[2018-04-04] MEDS: Morphine Sulfate Oral Liq 10 MG/0.5 ML Syringe PO PRN ×2 (16:25→21:56)
--- NOTE | 2018-04-04 21:19 | P.PNID ---
Subjective Remarks: delayed entry - pt was seen earlier today remains non verbal, responds only to tactile / noxious stimuli with load moani g / yelling Growing MSSA in 10/02 bloo clx bottles sp IR nephrostomy revision afebrile Nl WBC good urine output via nephrostomy Antibiotics: zosyn vancomjycin Allergies/Adverse Reactions: Allergies *MDRO Multi-Drug Resistant Organism Adverse Reaction (Unknown, Uncoded 11/10/17 06:21) 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 ESBL + E. 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 Objective Vital Signs 04/03/18 21:10 04/03/18 21:20 04/03/18 21:30 Temperature Pulse Rate 49 L 53 L 53 L Respiratory Rate 47 H 79 H 103 H Blood Pressure 131/60 120/60 155/66 H Pulse Oximetry 100 100 100 04/03/18 21:40 04/03/18 22:00 04/03/18 22:30 Temperature Pulse Rate 58 L 55 L 51 L Respiratory Rate 16 19 12 Blood Pressure 139/63 122/58 L 126/61 Pulse Oximetry 100 100 100 04/03/18 23:00 04/03/18 23:31 04/04/18 00:00 Temperature 99.2 F Pulse Rate 51 L 54 L 59 L Respiratory Rate 15 13 112 H Blood Pressure 111/53 L 141/65 H 123/56 L Pulse Oximetry 100 100 100 04/04/18 00:30 04/04/18 01:00 04/04/18 01:31 Temperature Pulse Rate 53 L 52 L 60 Respiratory Rate 98 H 91 H 95 H Blood Pressure 124/60 112/55 L 150/62 H Pulse Oximetry 100 100 100 04/04/18 02:00 04/04/18 02:30 04/04/18 03:00 Temperature Pulse Rate 53 L 52 L 52 L Respiratory Rate 117 H 83 H 133 H Blood Pressure 127/60 118/59 L 135/63 Pulse Oximetry 100 100 100 04/04/18 03:01 04/04/18 03:30 04/04/18 04:00 Temperature 99.2 F Pulse Rate 55 L 58 L 61 Respiratory Rate 128 H 101 H 148 H Blood Pressure 135/63 133/62 112/60 Pulse Oximetry 100 100 99 04/04/18 04:01 04/04/18 04:31 04/04/18 05:00 Temperature Pulse Rate 62 59 L 58 L Respiratory Rate 162 H 129 H 162 H Blood Pressure 147/67 H 149/63 H 128/60 Pulse Oximetry 90 L 79 L 96 04/04/18 05:31 04/04/18 06:00 04/04/18 06:30 Temperature Pulse Rate 56 L 51 L 52 L Respiratory Rate 135 H 179 H 155 H Blood Pressure 118/56 L 138/63 125/58 L Pulse Oximetry 99 100 100 04/04/18 07:00 04/04/18 07:30 04/04/18 08:00 Temperature 97.8 F Pulse Rate 48 L 55 L 60 Respiratory Rate 144 H 106 H 123 H Blood Pressure 124/61 113/58 L 156/68 H Pulse Oximetry 100 100 100 04/04/18 08:30 04/04/18 09:00 04/04/18 09:30 Temperature Pulse Rate 60 53 L 55 L Respiratory Rate 22 20 16 Blood Pressure 157/67 H 137/63 144/65 H Pulse Oximetry 100 100 100 04/04/18 10:00 04/04/18 10:30 04/04/18 11:00 Temperature Pulse Rate 53 L 50 L 52 L Respiratory Rate 15 79 H 1 L Blood Pressure 142/66 H 135/61 121/59 L Pulse Oximetry 97 100 100 04/04/18 11:30 04/04/18 12:00 04/04/18 12:01 Temperature Pulse Rate 50 L 59 L 65 Respiratory Rate 17 22 24 Blood Pressure 117/56 L 157/65 H Pulse Oximetry 100 100 100 04/04/18 12:31 04/04/18 13:00 04/04/18 13:30 Temperature Pulse Rate 55 L 51 L 53 L Respiratory Rate 32 H 100 H 168 H Blood Pressure 122/58 L 132/61 121/58 L Pulse Oximetry 100 100 100 04/04/18 14:00 04/04/18 14:30 04/04/18 15:00 Temperature Pulse Rate 49 L 60 62 Respiratory Rate 148 H 20 22 Blood Pressure 133/63 153/67 H 145/64 H Pulse Oximetry 100 91 L 90 L 04/04/18 15:30 04/04/18 16:00 04/04/18 16:01 Temperature 98.4 F Pulse Rate 54 L 60 56 L Respiratory Rate 170 H 138 H 179 H Blood Pressure 146/67 H 159/67 H Pulse Oximetry 100 100 91 L 04/04/18 16:15 04/04/18 16:30 04/04/18 17:00 Temperature 98.4 F Pulse Rate 55 L 67 Respiratory Rate 162 H 159 H Blood Pressure 142/94 H 152/103 H Pulse Oximetry 96 100 04/04/18 17:05 04/04/18 17:31 04/04/18 18:00 Temperature Pulse Rate 63 53 L 58 L Respiratory Rate 143 H 132 H 15 Blood Pressure 171/71 H 153/67 H 146/65 H Pulse Oximetry 82 L 76 L 70 L Intake & Output 04/04/18 04/04/18 04/05/18 06:59 18:59 06:59 Intake Total 843 / 843 2112.5 / 2112.5 Output Total 1300 / 1300 1325 / 1325 Balance -457 / -457 787.5 / 787.5 Intake: IV 1812.5 / 1812.5 NS Inj 1,000 ML @ 84 mls/hr IV. 50 / 50 CONT .[id number] [facility] Rx#:[id number] Zosyn 3.375 GM Premix 50 ML @ 200 / 200 100 mls/hr IV.SIG Q6H [facility] Rx#: [id number] KCl 10 mEq Premix Inj 10 meq In 300 / 300 100 ml @ 100 mls/hr IV.SIG Q1H [facility] Rx#:[id number] NS Inj 1,000 ML @ Wide Open IV. 1000 / 1000 SIG BOLUS [facility] Rx#:[id number] Vancomycin Inj 1,250 MG In NS 262.5 / 262.5 Inj 250 ML @ 250 mls/hr IV.SIG Q24H [facility] Rx#:[id number] Tube Irrigant 300 / 300 Other 843 / 843 Output: Urine Amount (Stoma) 1300 / 1300 1325 / 1325 Nephrostomy Tube Right 1300 / 1300 1325 / 1325 Other: # Bowel Movements 0 0 04/03/18 05:10 Blood - Peripheral Aerobic Blood Culture - Preliminary Staphylococcus coag negative Staphylococcus aureus 04/03/18 05:10 Blood - Peripheral Anaerobic Blood Culture - Preliminary gram positive cocci 04/03/18 06:30 Catheterized Urine Urine Culture - Final >100,000 cfu/mL mixed rachna (probable contaminants) 04/04/18 10:08 Blood - Peripheral Aerobic Blood Culture - Pending 04/04/18 10:08 Blood - Peripheral Anaerobic Blood Culture - Pending 04/04/18 10:02 Blood - Peripheral Aerobic Blood Culture - Pending 04/04/18 10:02 Blood - Peripheral Anaerobic Blood Culture - Pending 04/03/18 05:05 Blood - Peripheral Aerobic Blood Culture - Preliminary gram positive cocci 04/03/18 05:05 Blood - Peripheral Anaerobic Blood Culture - Preliminary gram positive cocci Lab - Hematology Results 04/03/18 04/03/18 04/04/18 05:10 14:02 03:21 WBC 16.3 H 14.9 H 9.8 RBC 2.94 L 3.11 L 3.14 L Hgb 7.9 L 8.2 L 8.4 L Hct 24.1 L 25.8 L 26.1 L MCV 82.0 83.2 83.2 MCH 26.7 L 26.3 L 26.9 L MCHC 32.6 31.6 L 32.3 RDW 17.6 H 17.4 H 17.7 H Plt Count 140 L 121 L 126 L MPV 10.2 10.7 10.0 Neut % (Auto) 87.0 H 83.1 H Lymph % (Auto) 8.9 L 10.3 [place] % (Auto) 3.8 3.8 Eos % (Auto) 0.1 2.4 Baso % (Auto) 0.2 0.4 Neut # (Auto) 14.1 H 8.2 H Lymph # (Auto) 1.5 1.0 [place] # (Auto) 0.6 0.4 Eos # (Auto) 0.0 0.2 Baso # (Auto) 0.0 0.0 WBC Differential . . Differential Comment Auto diff final Auto diff final Lab - Chemistry Results 04/03/18 04/03/18 04/03/18 05:10 05:10 12:24 Sodium 138 Potassium 3.2 L Chloride 99 Carbon Dioxide 27.8 Anion Gap 11 BUN 142 H Creatinine 2.60 H Estimated GFR 19 L POC Glucose 189 H Random Glucose 238 H Lactic Acid 1.6 Calcium 8.5 Magnesium 2.7 H Total Bilirubin 0.4 AST 29 ALT 34 Alkaline Phosphatase 99 Total Creatine Kinase 103 CK-MB (CK-2) Less than 1.0 Troponin I Less than 0.02 L Total Protein 7.5 Albumin 2.7 L Lipase 70 L 04/04/18 04/04/18 03:21 10:08 Sodium 152 H D 149 H Potassium 3.2 L 3.0 L Chloride 112 H D 112 H Carbon Dioxide 28.5 26.5 Anion Gap 12 11 BUN 106 H 96 H Creatinine 1.77 H 1.68 H Estimated GFR 29 L 31 L POC Glucose Random Glucose 126 H D 111 H Lactic Acid Calcium 8.1 L 8.9 D Magnesium 2.4 Total Bilirubin 0.4 AST 17 ALT 28 Alkaline Phosphatase 90 Total Creatine Kinase CK-MB (CK-2) Troponin I Total Protein 7.4 Albumin 2.4 L Lipase Imaging: ITS Impressions Ureterogram 04/03/18 00:00 CONCLUSION: 1. Uncomplicated right nephroureteral catheter replacement as above. Abdomen/Pelvis CT 04/03/18 05:08 CONCLUSION: 1. Atrophic end-stage left kidney containing coarse calcifications. 2. Right-sided nephroureteral catheter in place with redemonstration of extensive stone encrustation involving the proximal portion of the ureteral stent within the bladder. There are multiple additional stones in the ureter and renal pelvis as well as a dominant staghorn calyceal calcification in the superior pole of the right kidney measuring approximately 2.5 cm. There is persistent mild to moderate hydroureteronephrosis. Consider interventional radiology consultation for possible catheter exchange if there is decreased urine output or if there is concern for urosepsis. 3. Gastrostomy catheter in place. Chest X-Ray 04/04/18 06:54 CONCLUSION: Cardiomegaly. No acute pulmonary disease. Physical Exam: GENERAL: NAD SKIN: Warm and dry. HEAD: Atraumatic. Normocephalic. EYES: Pupils equal and round. No scleral icterus. No injection or drainage. ENT: No nasal bleeding or discharge. Mucous membranes pink and moist. NECK: Trachea midline. No JVD. CARDIOVASCULAR: Regular rate and rhythm. RESPIRATORY: No accessory muscle use. Clear to auscultation. Breath sounds equal bilaterally. GASTROINTESTINAL: Abdomen soft, non-tender, nondistended. Hepatic and splenic margins not palpable. MUSCULOSKELETAL: Extremities without clubbing, cyanosis, or edema. No obvious deformities. NEUROLOGICAL: Lethargic, eyes closed. Non verbal COntracted plegic LUE and b/ l foot drop moans to touch PSYCHIATRIC: unable to assess Assessment and Plan - Plan UTI, complicated - pt with dislodged R sided nephrostomy Sepsis, MSSA Coag neg staph 1/ cw contaminant CVA with non verbal bedridden status ARF on CKD change zosyn to ancef dc vanco fu repeat blood clx untill sterility documented 2 D echo dw RN
[2018-04-04] MEDS: ceFAZolin 2 GM Premix Inj 2 GM/50 ML PIGGYBACK IV.SIG SCH (21:55)
[2018-04-04] MEDS ORDERED: ceFAZolin Inj 2,000 MG in Sodium Chlor 0.9% Inj 80 ML IV.SIG SCH (22:00)
[2018-04-05] MEDS: Morphine Sulfate Oral Liq 10 MG/0.5 ML Syringe PO PRN ×4 (02:37→21:21)
[2018-04-05] MEDS: ceFAZolin 2 GM Premix Inj 2 GM/50 ML PIGGYBACK IV.SIG SCH ×3 (05:02→21:15)
[2018-04-05] MEDS: Chlorhexidine Gluconate 2% 1 Pack (2 Cloths) TOPICAL SCH (05:03)
[2018-04-05 05:32] LABS: Baso # (Auto) 0.1 th/mm3 (0.0-0.2); Baso % (Auto) 0.6 % (0.0-2.0); Eos # (Auto) 0.3 th/mm3 (0.0-0.4); Eos % (Auto) 3.2 % (0.0-4.0); Hemoglobin 8.3 gm/dL (11.6-15.3); Lymph # (Auto) 1.5 th/mm3 (1.0-4.8); Lymph % (Auto) 17.4 % (9.0-44.0); Mean Corpuscular HGB Conc 33.1 % (32.0-36.0); Mean Corpuscular Volume 81.7 fL (80.0-100.0); Mono # (Auto) 0.4 th/mm3 (0.0-0.9); Mono % (Auto) 4.6 % (0.0-8.0); Neut # (Auto) 6.4 th/mm3 (1.8-7.7); Neut % (Auto) 74.2 % (16.0-70.0); Platelet Count 149 th/mm3 (150-450); Red Blood Count 3.06 mil/mm3 (4.00-5.30); Red Cell Distribution Width 17.4 % (11.6-17.2); White Blood Count 8.6 th/mm3 (4.0-11.0)
[2018-04-05] MEDS: Famotidine 20 MG Tablet PO SCH (08:04)
[2018-04-05] MEDS: Senna/Docusate Sodium 8.6/50 MG Tablet PO SCH ×2 (08:07→20:21)
[2018-04-05] MEDS: Sodium Chloride 0.45 % Inj 1,000 ML IV.CONT SCH ×2 (08:08→20:21)
[2018-04-05 08:29] LABS: Eosinophils 3 % (0-4); Lymphocytes 14 % (9-44); Metamyelocytes 1 % (0-1); Monocytes 5 % (0-8)
--- NOTE | 2018-04-05 09:39 | P.PNIM ---
Subjective Interval history: Patient mostly nonverbal as before. She does appear to indicate that she is in pain, sounds like "all over" Physical Exam Vital signs: Vital Signs 04/04/18 10:00 04/04/18 10:30 04/04/18 11:00 Temperature Pulse Rate 53 L 50 L 52 L Respiratory Rate 15 79 H 1 L Blood Pressure 142/66 H 135/61 121/59 L Pulse Oximetry 97 100 100 04/04/18 11:30 04/04/18 12:00 04/04/18 12:01 Temperature Pulse Rate 50 L 59 L 65 Respiratory Rate 17 22 24 Blood Pressure 117/56 L 157/65 H Pulse Oximetry 100 100 100 04/04/18 12:31 04/04/18 13:00 04/04/18 13:30 Temperature Pulse Rate 55 L 51 L 53 L Respiratory Rate 32 H 100 H 168 H Blood Pressure 122/58 L 132/61 121/58 L Pulse Oximetry 100 100 100 04/04/18 14:00 04/04/18 14:30 04/04/18 15:00 Temperature Pulse Rate 49 L 60 62 Respiratory Rate 148 H 20 22 Blood Pressure 133/63 153/67 H 145/64 H Pulse Oximetry 100 91 L 90 L 04/04/18 15:30 04/04/18 16:00 04/04/18 16:01 Temperature 98.4 F Pulse Rate 54 L 60 56 L Respiratory Rate 170 H 138 H 179 H Blood Pressure 146/67 H 159/67 H Pulse Oximetry 100 100 91 L 04/04/18 16:15 04/04/18 16:30 04/04/18 17:00 Temperature 98.4 F Pulse Rate 55 L 67 Respiratory Rate 162 H 159 H Blood Pressure 142/94 H 152/103 H Pulse Oximetry 96 100 04/04/18 17:05 04/04/18 17:31 04/04/18 18:00 Temperature Pulse Rate 63 53 L 58 L Respiratory Rate 143 H 132 H 15 Blood Pressure 171/71 H 153/67 H 146/65 H Pulse Oximetry 82 L 76 L 70 L 04/04/18 18:30 04/04/18 19:00 04/04/18 19:30 Temperature Pulse Rate 53 L 52 L 60 Respiratory Rate 19 21 150 H Blood Pressure 150/67 H 143/67 H 152/67 H Pulse Oximetry 98 100 72 L 04/04/18 20:00 04/04/18 20:01 04/04/18 20:30 Temperature 98.4 F Pulse Rate 50 L 53 L 53 L Respiratory Rate 75 H 81 H 17 Blood Pressure 163/70 H 158/70 H Pulse Oximetry 97 97 99 04/04/18 21:00 04/04/18 21:01 04/04/18 21:30 Temperature Pulse Rate 54 L 53 L 59 L Respiratory Rate 24 19 20 Blood Pressure 159/71 H 166/72 H Pulse Oximetry 95 86 L 100 04/04/18 22:00 04/04/18 22:01 04/04/18 22:31 Temperature Pulse Rate 61 55 L 56 L Respiratory Rate 21 17 20 Blood Pressure 177/74 H 165/71 H Pulse Oximetry 99 100 82 L 04/04/18 23:00 04/04/18 23:30 04/05/18 00:00 Temperature 98.5 F Pulse Rate 61 61 54 L Respiratory Rate 21 104 H 24 Blood Pressure 171/75 H 178/72 H Pulse Oximetry 91 L 100 100 04/05/18 00:01 04/05/18 00:30 04/05/18 01:00 Temperature Pulse Rate 57 L 59 L 63 Respiratory Rate 19 18 26 H Blood Pressure 169/72 H 161/70 H 166/72 H Pulse Oximetry 97 87 L 78 L 04/05/18 01:30 04/05/18 02:00 04/05/18 02:31 Temperature Pulse Rate 59 L 60 61 Respiratory Rate 21 27 H 18 Blood Pressure 173/73 H 179/75 H 181/77 H Pulse Oximetry 98 100 77 L 04/05/18 02:44 04/05/18 02:58 04/05/18 03:00 Temperature Pulse Rate 58 L 61 66 Respiratory Rate 20 25 H 25 H Blood Pressure 187/76 H 171/77 H 166/76 H Pulse Oximetry 100 100 100 04/05/18 03:30 04/05/18 04:00 04/05/18 04:01 Temperature 99.4 F Pulse Rate 62 63 71 Respiratory Rate 102 H 82 H 29 H Blood Pressure 165/72 H 183/75 H Pulse Oximetry 100 100 100 04/05/18 04:03 04/05/18 04:31 04/05/18 05:00 Temperature Pulse Rate 68 64 66 Respiratory Rate 113 H 16 23 Blood Pressure 186/80 H 164/69 H 166/71 H Pulse Oximetry 100 100 96 04/05/18 08:23 Temperature Pulse Rate Respiratory Rate Blood Pressure Pulse Oximetry 100 Intake & Output 04/04/18 04/05/18 04/05/18 18:59 06:59 18:59 Intake Total 2112.5 / 2112.5 1100 / 1100 1000 / 1000 Output Total 1325 / 1325 1825 / 1825 Balance 787.5 / 787.5 -725 / -725 1000 / 1000 Intake: IV 1812.5 / 1812.5 1100 / 1100 1000 / 1000 NS Inj 1,000 ML @ 84 mls/hr IV. 50 / 50 CONT .[id number] [facility]UDE Rx#:[id number] 1/2 Normal Saline Inj 1,000 ML 1000 / 1000 1000 / 1000 @ 84 mls/hr IV.CONT .[id number] [facility] Rx#:[id number] Zosyn 3.375 GM Premix 50 ML @ 200 / 200 100 mls/hr IV.SIG Q6H [facility] Rx#: [id number] KCl 10 mEq Premix Inj 10 meq In 300 / 300 100 ml @ 100 mls/hr IV.SIG Q1H [facility] Rx#:[id number] NS Inj 1,000 ML @ Wide Open IV. 1000 / 1000 SIG BOLUS CLAUDE Rx#:[id number] Vancomycin Inj 1,250 MG In NS 262.5 / 262.5 Inj 250 ML @ 250 mls/hr IV.SIG Q24H [facility] Rx#:[id number] Ancef 2 GM Premix Inj 2 gm In 100 / 100 50 ml @ 100 mls/hr IV.SIG Q8H [facility] Rx#:[id number] Tube Irrigant 300 / 300 Output: Urine Amount (Stoma) 1325 / 1325 1825 / 1825 Nephrostomy Tube Right 1325 / 1325 1825 / 1825 Other: # Bowel Movements 0 Narrative: GENERAL: Patient lying in bed. Appears comfortable. Nonverbal. Opens eyes to verbal stimulation. Exam unchanged. SKIN: Warm and dry. HEAD: Normocephalic. EYES: No scleral icterus. No injection or drainage. NECK: Supple, trachea midline. No JVD. CARDIOVASCULAR: Regular rate and rhythm without murmurs, gallops, or rubs. RESPIRATORY: Breath sounds equal bilaterally. No accessory muscle use. GASTROINTESTINAL: Abdomen soft, non-tender, nondistended. PEG tube in place without surrounding erythema or leakage. Nephrostomy tube in place. MUSCULOSKELETAL: No cyanosis, or edema. Patient only moves right upper extremity. Contractures in other extremities BACK: Nontender without obvious deformity. No CVA tenderness. Results - Labs CBC & Chem 7: 04/05/18 04:13 04/05/18 04:13 Laboratory Results - last 24 hr 04/04/18 04/05/18 04/05/18 10:08 04:13 04:13 WBC 8.6 RBC 3.06 L Hgb 8.3 L Hct 25.0 L MCV 81.7 MCH 27.0 MCHC 33.1 RDW 17.4 H Plt Count 149 L MPV 10.0 Prelim Diff (Auto) Slide review pending Neut % (Auto) 74.2 H Lymph % (Auto) 17.4 [place]christ % (Auto) 4.6 Eos % (Auto) 3.2 Baso % (Auto) 0.6 Neut # (Auto) 6.4 Lymph # (Auto) 1.5 [place]christ # (Auto) 0.4 Eos # (Auto) 0.3 Baso # (Auto) 0.1 WBC Differential Manual diff final Seg Neuts % (Manual) 72 H Band Neuts % (Manual) 5 Lymphocytes % (Manual) 14 Monocytes % (Manual) 5 Eosinophils % (Manual) 3 Metamyelocytes % (Man) 1 Abs Neuts (Manual) 6.7 Differential Comment . Platelet Estimate Low L Platelet Morphology Enlarged H Sodium 149 H Potassium 3.0 L Chloride 112 H Carbon Dioxide 26.5 Anion Gap 11 BUN 96 H Creatinine 1.68 H 1.40 H Estimated GFR 31 L 38 L Random Glucose 111 H Calcium 8.9 D Microbiology 04/03/18 05:10 Blood - Peripheral Aerobic Blood Culture - Preliminary Staphylococcus coag negative Staphylococcus aureus 04/03/18 05:10 Blood - Peripheral Anaerobic Blood Culture - Preliminary gram positive cocci 04/03/18 06:30 Catheterized Urine Urine Culture - Final >100,000 cfu/mL mixed rachna (probable contaminants) 04/03/18 05:05 Blood - Peripheral Aerobic Blood Culture - Preliminary gram positive cocci 04/03/18 05:05 Blood - Peripheral Anaerobic Blood Culture - Preliminary gram positive cocci Assessment and Plan - Plan NEURO: Acute metabolic encephalopathy Previous left hemiplegia with aphasia -Minimize any sedation -Continue gabapentin -PT OT consult RESP: -DuoNeb every 6 hours scheduled and as needed -Aggressive pulmonary toilet CV: Hypotension History of hypertension -Normal saline IV fluids 2 L bolus and 84 mL/h -Home medications of hydralazine clonidine and Imdur will be held -Continue aspirin via PEG tube after IR procedures = 04/05. Elevated blood pressures. Likely secondary to improving infection. Will start back on blood pressure medications. GI: -N.p.o., IV famotidine : Acute on chronic kidney disease Mild to moderate hydronephrosis on the right with probably dislodged nephrostomy tube Neurogenic bladder Hypernatremia -Monitor renal function closely. -Fluid resuscitation as above -IR consulted for nephrostomy tube replacement -Nephrology consult if creatinine not improving = 04/04. Creatinine 1.7 from 2.6 yesterday. Sodium has increased significantly. Will switch to half-normal saline. recheck of labs. Discussed with nurse. Appreciate assistance. = 04/05. Creatinine improving 1.4. Other labs are still pending. Will follow up. ID: Severe sepsis UTI Gram-negative bacteremia. -Received vancomycin and cefepime in the ED, continue Zosyn and vancomycin renally dose -Blood urine cultures = 04/04. Gram-negative bacteremia. We will repeat cultures. ID following.. No antibiotics. Follow-up cultures. Appreciate assistance. = 04/05. Repeat blood cultures pending. Appreciate ID assistance. Continue IV antibiotics. HEME: -Monitor CBC, coags ENDO: Type 2 diabetes -Electrolyte replacement per protocol -Sliding scale insulin PROPH: -Bilateral lower extremity SCDs. Lovenox after invasive procedures are completed/IV famotidine LINES: -Utilize peripheral IVs, central line if needed Palliative care following. Discussed Condition With: Patient, nurse. Discharge Planning: Gram-positive bacteremia. Hopefully to SNF when cleared by infectious disease.
[2018-04-05] MEDS: Gabapentin Liq 250 MG/5 ML UDC G-TUBE SCH ×2 (13:00→18:37)
[2018-04-05] MEDS ORDERED: Pharmacy Ordered Lab Info OTHER ONE (13:45)
[2018-04-05] MEDS: hydrALAZINE 50 MG Tablet G-TUBE SCH ×2 (15:21→21:14)
--- NOTE | 2018-04-05 16:03 | ECHRPT ---
Indication: POSS SEPSIS, ENDOCARDITIS CONCLUSIONS Limited study for endocarditis. Normal left ventricular size. Wall thickness is normal. Trace mitral valve regurgitation. No tricuspid regurgitation. No vegetation seen but cannot be ruled out. If more information needed, please order a PHILIP. BP: / HR: Rhythm: Sinus MEASUREMENTS (Male / Female) Normal Values Technical Quality:Technically difficult study 2D ECHO LV Diastolic Diameter PLAX 4.8 cm 4.2 - 5.9 / 3.9 - 5.3 cm LV Systolic Diameter PLAX 3.4 cm IVS Diastolic Thickness 1.0 cm 0.6 - 1.0 / 0.6 - 0.9 cm LVPW Diastolic Thickness 1.0 cm 0.6 - 1.0 / 0.6 - 0.9 cm LV Relative Wall Thickness 0.4 RV Internal Dim ED PLAX 2.1 cm LVOT Diameter 1.9 cm Aortic Root Diameter 3.3 cm LA Systolic Diameter LX 3.0 cm 3.0 - 4.0 / 2.7 - 3.8 cm FINDINGS LEFT VENTRICLE Normal left ventricular size. Wall thickness is normal. RIGHT VENTRICLE Normal right ventricular size and systolic function. LEFT ATRIUM The left atrial size is normal. RIGHT ATRIUM The right atrial size is normal. ATRIAL SEPTUM The interatrial septum not well visualized. AORTA The aortic root and proximal ascending aorta are not well visualized. MITRAL VALVE Trace mitral valve regurgitation. AORTIC VALVE Trileaflet aortic valve. No aortic valve stenosis or regurgitation. TRICUSPID VALVE No tricuspid regurgitation. PULMONARY VALVE The pulmonary valve is not well visualized. VESSELS The inferior vena cava was not well visualized. PERICARDIUM No pericardial effusion. Glory Grande MD (Electronically Signed) Final Date:05 April 2018 16:02
[2018-04-05 20:16] LABS: Albumin 2.3 g/dL (3.4-5.0); Calcium 8.7 mg/dL (8.5-10.1); Carbon Dioxide 25.9 meq/L (21.0-32.0); Magnesium 1.6 mg/dL (1.5-2.5); Phosphorus 2.1 mg/dL (2.5-4.9)
[2018-04-05] MEDS: Metoprolol Tartrate 25 MG Tablet G-TUBE SCH (20:21)
[2018-04-06] MEDS: Morphine Sulfate Oral Liq 10 MG/0.5 ML Syringe PO PRN ×3 (04:33→18:24)
[2018-04-06] MEDS: Chlorhexidine Gluconate 2% 1 Pack (2 Cloths) TOPICAL SCH (05:11)
[2018-04-06] MEDS: hydrALAZINE 50 MG Tablet G-TUBE SCH ×3 (05:11→21:33)
[2018-04-06] MEDS: ceFAZolin 2 GM Premix Inj 2 GM/50 ML PIGGYBACK IV.SIG SCH ×2 (05:12→13:25)
[2018-04-06] MEDS: Sodium Chloride 0.45 % Inj 1,000 ML IV.CONT SCH ×2 (08:46→20:34)
[2018-04-06] MEDS: Metoprolol Tartrate 25 MG Tablet G-TUBE SCH ×2 (08:47→20:35)
[2018-04-06] MEDS: Lansoprazole ODT 15 MG Tablet G-TUBE SCH (08:47)
[2018-04-06] MEDS: Gabapentin Liq 250 MG/5 ML UDC G-TUBE SCH ×3 (08:47→18:25)
[2018-04-06] MEDS: Senna/Docusate Sodium 8.6/50 MG Tablet PO SCH ×2 (08:48→20:36)
[2018-04-06] MEDS: Sertraline 50 MG Tablet G-TUBE SCH (08:48)
[2018-04-06] MEDS ORDERED: Potassium Chloride 20 MEQ Pwd Pkt NG/OG ONE (17:24)
[2018-04-06] MEDS ORDERED: Potassium Chlor 20 mEq Premix 20 MEQ/100 ML PIGGYBACK IV.SIG ONE (17:25)
--- NOTE | 2018-04-06 17:27 | P.PNIM ---
Subjective Interval history: Patient mostly nonverbal as before. She does indicate that she is continuing to have pain all over. Physical Exam Vital signs: Vital Signs 04/05/18 18:33 04/05/18 20:00 04/05/18 21:51 Temperature 98.9 F Pulse Rate 64 Respiratory Rate 20 16 16 Blood Pressure 156/67 H Pulse Oximetry 99 04/05/18 21:54 04/06/18 00:00 04/06/18 04:00 Temperature 98.7 F 98.8 F Pulse Rate 70 64 Respiratory Rate 18 20 Blood Pressure 152/70 H 166/76 H Pulse Oximetry 100 98 98 04/06/18 05:12 04/06/18 07:30 04/06/18 08:00 Temperature 98.3 F Pulse Rate 61 Respiratory Rate 16 20 Blood Pressure 174/84 H Pulse Oximetry 100 100 04/06/18 09:00 04/06/18 12:00 04/06/18 16:00 Temperature 98.9 F 98.7 F Pulse Rate 56 L 57 L 54 L Respiratory Rate 22 24 Blood Pressure 161/72 H 162/76 H Pulse Oximetry 99 99 Intake & Output 04/05/18 04/06/18 04/06/18 18:59 06:59 18:59 Intake Total 1450 / 1450 1050 / 1050 1050 / 1050 Output Total 1050 / 1050 1300 / 1300 Balance 400 / 400 -250 / -250 1050 / 1050 Weight 79 kg Intake: IV 1050 / 1050 1050 / 1050 1050 / 1050 1/2 Normal Saline Inj 1,000 ML 1000 / 1000 1000 / 1000 1000 / 1000 @ 84 mls/hr IV.CONT .[id number] [facility] Rx#:[id number] Ancef 2 GM Premix Inj 2 gm In 50 / 50 50 / 50 50 / 50 50 ml @ 100 mls/hr IV.SIG Q8H [facility]UDE Rx#:[id number] Tube Irrigant 400 / 400 0 / 0 Other 0 / 0 Output: Urine Amount (Stoma) 1050 / 1050 1300 / 1300 Nephrostomy Tube Right 1050 / 1050 1300 / 1300 Other: # Bowel Movements 0 Narrative: GENERAL: Patient lying in bed. Appears comfortable. Partially verbal. Able to indicate that she is in pain all over. SKIN: Warm and dry. HEAD: Normocephalic. EYES: No scleral icterus. No injection or drainage. NECK: Supple, trachea midline. No JVD. CARDIOVASCULAR: Regular rate and rhythm without murmurs, gallops, or rubs. RESPIRATORY: Breath sounds equal bilaterally. No accessory muscle use. GASTROINTESTINAL: Abdomen soft, non-tender, nondistended. PEG tube in place without surrounding erythema or leakage. Nephrostomy tube in place. MUSCULOSKELETAL: No cyanosis, or edema. Patient only moves right upper extremity. Contractures in other extremities BACK: Nontender without obvious deformity. No CVA tenderness. Results - Labs CBC & Chem 7: 04/05/18 04:13 04/06/18 03:36 Laboratory Results - last 24 hr 04/05/18 04/06/18 18:50 03:36 Sodium 150 H Potassium 3.0 L Chloride 116 H Carbon Dioxide 25.9 Anion Gap 8 BUN 56 H Creatinine 1.24 H 1.26 H Estimated GFR 44 L 43 L Random Glucose 82 Calcium 8.7 Phosphorus 2.1 L Magnesium 1.6 D Albumin 2.3 L Vancomycin Trough Cancelled Microbiology 04/04/18 10:08 Blood - Peripheral Aerobic Blood Culture - Preliminary No growth in 2 days 04/04/18 10:08 Blood - Peripheral Anaerobic Blood Culture - Preliminary No growth in 2 days 04/04/18 10:02 Blood - Peripheral Aerobic Blood Culture - Preliminary No growth in 2 days 04/04/18 10:02 Blood - Peripheral Anaerobic Blood Culture - Preliminary No growth in 2 days 04/03/18 05:05 Blood - Peripheral Aerobic Blood Culture - Final Staphylococcus coag negative 04/03/18 05:05 Blood - Peripheral Anaerobic Blood Culture - Final Staphylococcus coag negative 04/03/18 05:10 Blood - Peripheral Aerobic Blood Culture - Final Staphylococcus coag negative Staphylococcus aureus 04/03/18 05:10 Blood - Peripheral Anaerobic Blood Culture - Final Staphylococcus coag negative Assessment and Plan - Plan NEURO: Acute metabolic encephalopathy Previous left hemiplegia with aphasia -Minimize any sedation -Continue gabapentin -PT OT consult RESP: -DuoNeb every 6 hours scheduled and as needed -Aggressive pulmonary toilet CV: Hypotension History of hypertension -Normal saline IV fluids 2 L bolus and 84 mL/h -Home medications of hydralazine clonidine and Imdur will be held -Continue aspirin via PEG tube after IR procedures = 04/05. Elevated blood pressures. Likely secondary to improving infection. Will start back on blood pressure medications. = 04/06. Blood pressures continue to be elevated. Will add back Imdur. Continue to monitor blood pressures. GI: -N.p.o., IV famotidine : Acute on chronic kidney disease Mild to moderate hydronephrosis on the right with probably dislodged nephrostomy tube Neurogenic bladder Hypernatremia Hypokalemia -Monitor renal function closely. -Fluid resuscitation as above -IR consulted for nephrostomy tube replacement -Nephrology consult if creatinine not improving = 04/04. Creatinine 1.7 from 2.6 yesterday. Sodium has increased significantly. Will switch to half-normal saline. recheck of labs. Discussed with nurse. Appreciate assistance. = 04/06. Creatinine improving 1.26. Potassium 3.0. Replace p.o. and IV. Monitor. ID: Severe sepsis UTI Gram-negative bacteremia. -Received vancomycin and cefepime in the ED, continue Zosyn and vancomycin renally dose -Blood urine cultures = 04/04. Gram-negative bacteremia. We will repeat cultures. ID following.. No antibiotics. Follow-up cultures. Appreciate assistance. = 04/06. Repeat blood cultures negative times 2 days. Appreciate ID assistance. Continue IV antibiotics. HEME: -Monitor CBC, coags ENDO: Type 2 diabetes -Electrolyte replacement per protocol -Sliding scale insulin PROPH: -Bilateral lower extremity SCDs. Lovenox after invasive procedures are completed/IV famotidine LINES: -Utilize peripheral IVs, central line if needed Palliative care following. Discharge Planning: Gram-positive bacteremia. Hopefully to SNF when cleared by infectious disease.
[2018-04-06] MEDS ORDERED: Potassium Chloride 25 MEQ Effervescent Tablet NG/OG ONE (18:30)
[2018-04-06] MEDS ORDERED: Vancomycin Consult Pharmacy OTHER PRN (19:05)
--- NOTE | 2018-04-06 19:05 | P.PNID ---
Subjective Remarks: pt developped hematuria which improved today No fever, temps is borderline @ 99 F blood clx with coag negative staph 3/4, MSSA 1/4 Antibiotics: cefazolin Allergies/Adverse Reactions: Allergies *MDRO Multi-Drug Resistant Organism Adverse Reaction (Unknown, Uncoded 11/10/17 06:21) 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 ESBL + E. 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 Objective Vital Signs 04/05/18 20:00 04/05/18 21:51 04/05/18 21:54 Temperature 98.9 F Pulse Rate 64 Respiratory Rate 16 16 Blood Pressure 156/67 H Pulse Oximetry 99 100 04/06/18 00:00 04/06/18 04:00 04/06/18 05:12 Temperature 98.7 F 98.8 F Pulse Rate 70 64 Respiratory Rate 18 20 16 Blood Pressure 152/70 H 166/76 H Pulse Oximetry 98 98 04/06/18 07:30 04/06/18 08:00 04/06/18 09:00 Temperature 98.3 F Pulse Rate 61 56 L Respiratory Rate 20 Blood Pressure 174/84 H Pulse Oximetry 100 100 04/06/18 12:00 04/06/18 16:00 Temperature 98.9 F 98.7 F Pulse Rate 57 L 54 L Respiratory Rate 22 24 Blood Pressure 161/72 H 162/76 H Pulse Oximetry 99 99 Intake & Output 04/06/18 04/06/18 04/07/18 06:59 18:59 06:59 Intake Total 1050 / 1050 1400 / 1400 Output Total 1300 / 1300 700 / 700 Balance -250 / -250 700 / 700 Weight 79 kg Intake: IV 1050 / 1050 1050 / 1050 1/2 Normal Saline Inj 1,000 ML 1000 / 1000 1000 / 1000 @ 84 mls/hr IV.CONT .[id number] [facility] Rx#:[id number] Ancef 2 GM Premix Inj 2 gm In 50 / 50 50 / 50 50 ml @ 100 mls/hr IV.SIG Q8H [facility]UDE Rx#:[id number] Tube Irrigant 0 / 0 350 / 350 Other 0 / 0 0 / 0 Output: Urine Amount (Stoma) 1300 / 1300 700 / 700 Nephrostomy Tube Right 1300 / 1300 700 / 700 Other: # Bowel Movements 0 0 04/04/18 10:08 Blood - Peripheral Aerobic Blood Culture - Preliminary No growth in 2 days 04/04/18 10:08 Blood - Peripheral Anaerobic Blood Culture - Preliminary No growth in 2 days 04/04/18 10:02 Blood - Peripheral Aerobic Blood Culture - Preliminary No growth in 2 days 04/04/18 10:02 Blood - Peripheral Anaerobic Blood Culture - Preliminary No growth in 2 days 04/03/18 05:05 Blood - Peripheral Aerobic Blood Culture - Final Staphylococcus coag negative 04/03/18 05:05 Blood - Peripheral Anaerobic Blood Culture - Final Staphylococcus coag negative 04/03/18 05:10 Blood - Peripheral Aerobic Blood Culture - Final Staphylococcus coag negative Staphylococcus aureus 04/03/18 05:10 Blood - Peripheral Anaerobic Blood Culture - Final Staphylococcus coag negative 04/03/18 06:30 Catheterized Urine Urine Culture - Final >100,000 cfu/mL mixed rachna (probable contaminants) Lab - Hematology Results 04/05/18 04:13 WBC 8.6 RBC 3.06 L Hgb 8.3 L Hct 25.0 L MCV 81.7 MCH 27.0 MCHC 33.1 RDW 17.4 H Plt Count 149 L MPV 10.0 Prelim Diff (Auto) Slide review pending Neut % (Auto) 74.2 H Lymph % (Auto) 17.4 [place] % (Auto) 4.6 Eos % (Auto) 3.2 Baso % (Auto) 0.6 Neut # (Auto) 6.4 Lymph # (Auto) 1.5 [place] # (Auto) 0.4 Eos # (Auto) 0.3 Baso # (Auto) 0.1 WBC Differential Manual diff final Seg Neuts % (Manual) 72 H Band Neuts % (Manual) 5 Lymphocytes % (Manual) 14 Monocytes % (Manual) 5 Eosinophils % (Manual) 3 Metamyelocytes % (Man) 1 Abs Neuts (Manual) 6.7 Differential Comment . Platelet Estimate Low L Platelet Morphology Enlarged H Lab - Chemistry Results 04/05/18 04/05/18 04/05/18 04:13 15:46 18:50 Sodium 150 H Potassium 3.0 L Chloride 116 H Carbon Dioxide 25.9 Anion Gap 8 BUN 56 H Creatinine 1.40 H 1.24 H Estimated GFR 38 L 44 L POC Glucose 86 Random Glucose 82 Calcium 8.7 Phosphorus 2.1 L Magnesium 1.6 D Albumin 2.3 L 10/07/18 03:36 Sodium Potassium Chloride Carbon Dioxide Anion Gap BUN Creatinine 1.26 H Estimated GFR 43 L POC Glucose Random Glucose Calcium Phosphorus Magnesium Albumin Imaging: ITS Impressions Ureterogram 04/03/18 00:00 CONCLUSION: 1. Uncomplicated right nephroureteral catheter replacement as above. Abdomen/Pelvis CT 04/03/18 05:08 CONCLUSION: 1. Atrophic end-stage left kidney containing coarse calcifications. 2. Right-sided nephroureteral catheter in place with redemonstration of extensive stone encrustation involving the proximal portion of the ureteral stent within the bladder. There are multiple additional stones in the ureter and renal pelvis as well as a dominant staghorn calyceal calcification in the superior pole of the right kidney measuring approximately 2.5 cm. There is persistent mild to moderate hydroureteronephrosis. Consider interventional radiology consultation for possible catheter exchange if there is decreased urine output or if there is concern for urosepsis. 3. Gastrostomy catheter in place. Chest X-Ray 04/04/18 06:54 CONCLUSION: Cardiomegaly. No acute pulmonary disease. Physical Exam: GENERAL: NAD essentially unresponsive SKIN: Warm and dry.No rash HEAD: Atraumatic. Normocephalic. EYES: Pupils equal and round. No scleral icterus. No injection or drainage. ENT: No nasal bleeding or discharge. Mucous membranes pink and moist. NECK: Trachea midline. No JVD. CARDIOVASCULAR: Regular rate and rhythm. RESPIRATORY: No accessory muscle use. Clear to auscultation. Breath sounds equal bilaterally. GASTROINTESTINAL: Abdomen soft, non-tender, nondistended. Hepatic and splenic margins not palpable. L nephrostomy in place with cloudy pink urine MUSCULOSKELETAL: Extremities without clubbing, cyanosis, or edema. No obvious deformities. NEUROLOGICAL: Lethargic, eyes closed. Non verbal COntracted plegic LUE and b/ l foot drop PSYCHIATRIC: unable to assess Assessment and Plan - Plan UTI, complicated - pt with dislodged R sided nephrostomy Sepsis, MSSA 2 D echo showed no vegetations Coag neg staph 3/4 cw contaminant CVA with non verbal bedridden status ARF on CKD: improving change ancef to cefepime restart vancomycin repeat UA, C+S fu repeat blood clx untill sterility documented harshil OSEI
[2018-04-06] MEDS ORDERED: Vancomycin Inj 1,500 MG in Sodium Chlor 0.9% Inj 500 ML IV.SIG ONE (20:00)
[2018-04-06] MEDS ORDERED: Enoxaparin Inj 30 MG/0.3 ML Syringe SQ ONE (22:06)
[2018-04-06] MEDS: Potassium Chlor 20 mEq Premix 20 MEQ/100 ML PIGGYBACK IV.SIG SCH (22:39)
[2018-04-06 23:04] LABS: Bacteria,Urine Rare /hpf; Bilirubin,Urine Negative (Negative); Clarity,Urine Hazy (Clear); Color,Urine Yellow (Yellw/Straw); Glucose,Urine (UA) Negative (Negative); Leukocyte Esterase,Urine Large (Negative); Mucus,Urine Few /lpf (Occasional); Nitrite,Urine Negative (Negative); Specific Gravity,Urine 1.013 (1.002-1.035); Squamous Epithelial Cell,Urine <1 /hpf (0-5)
[2018-04-07] MEDS: Potassium Chlor 20 mEq Premix 20 MEQ/100 ML PIGGYBACK IV.SIG SCH (00:27)
[2018-04-07] MEDS: Morphine Sulfate Oral Liq 10 MG/0.5 ML Syringe PO PRN ×2 (03:58→09:53)
[2018-04-07] MEDS: Chlorhexidine Gluconate 2% 1 Pack (2 Cloths) TOPICAL SCH (05:03)
[2018-04-07] MEDS: hydrALAZINE 50 MG Tablet G-TUBE SCH ×3 (05:04→22:09)
[2018-04-07] MEDS: Sertraline 50 MG Tablet G-TUBE SCH (09:55)
[2018-04-07] MEDS: Gabapentin Liq 250 MG/5 ML UDC G-TUBE SCH ×3 (09:55→20:07)
[2018-04-07] MEDS: Senna/Docusate Sodium 8.6/50 MG Tablet PO SCH ×2 (10:00→20:49)
[2018-04-07] MEDS: Lansoprazole ODT 15 MG Tablet G-TUBE SCH (10:00)
[2018-04-07] MEDS: Metoprolol Tartrate 25 MG Tablet G-TUBE SCH ×2 (10:02→22:08)
[2018-04-07] MEDS: Beneprotein Powder Packet G-TUBE SCH ×3 (10:02→18:07)
[2018-04-07] MEDS: Enoxaparin Inj 30 MG/0.3 ML Syringe SQ SCH (10:03)
[2018-04-07] MEDS: Sodium Chloride 0.45 % Inj 1,000 ML IV.CONT SCH ×2 (14:04→20:46)
--- NOTE | 2018-04-07 17:03 | P.PNIM ---
Subjective Interval history: patient seen today around 1:30 PM. Partially verbal as before. Says that she is doing "okay". Physical Exam Vital signs: Vital Signs 04/06/18 20:00 04/07/18 00:00 04/07/18 04:00 Temperature 98.7 F 98.4 F 98.5 F Pulse Rate 63 63 55 L Respiratory Rate 18 16 17 Blood Pressure 146/70 H 166/80 H 168/74 H Pulse Oximetry 98 98 98 04/07/18 04:28 04/07/18 08:00 Temperature Pulse Rate 52 L Respiratory Rate 14 Blood Pressure Pulse Oximetry Intake & Output 04/06/18 04/07/18 04/07/18 18:59 06:59 18:59 Intake Total 1400 / 1400 1635 / 1635 1000 / 1000 Output Total 700 / 700 800 / 800 150 / 150 Balance 700 / 700 835 / 835 850 / 850 Weight 79 kg Intake: IV 1050 / 1050 1615 / 1615 1000 / 1000 1/2 Normal Saline Inj 1,000 ML 1000 / 1000 1000 / 1000 1000 / 1000 @ 84 mls/hr IV.CONT .[id number] [facility] Rx#:[id number] Maxipime Inj 2,000 MG In NS Inj 100 / 100 100 ML @ 200 mls/hr IV.SIG Q12H [facility] Rx#:[id number] Vancomycin Inj 1,500 MG In NS 515 / 515 Inj 500 ML @ 250 mls/hr IV.SIG ONCE ONE Rx#:[id number] Ancef 2 GM Premix Inj 2 gm In 50 / 50 0 / 0 50 ml @ 100 mls/hr IV.SIG Q8H [facility] Rx#:[id number] Tube Irrigant 350 / 350 20 / 20 Other 0 / 0 0 / 0 Output: Urine Amount (Stoma) 700 / 700 800 / 800 150 / 150 Nephrostomy Tube Right 700 / 700 800 / 800 150 / 150 Other: # Bowel Movements 0 0 Narrative: GENERAL: Patient lying in bed. Appears comfortable. Partially verbal. Able to indicate that she is "okay" SKIN: Warm and dry. HEAD: Normocephalic. EYES: No scleral icterus. No injection or drainage. NECK: Supple, trachea midline. No JVD. CARDIOVASCULAR: Regular rate and rhythm without murmurs, gallops, or rubs. RESPIRATORY: Breath sounds equal bilaterally. No accessory muscle use. GASTROINTESTINAL: Abdomen soft, non-tender, nondistended. PEG tube in place without surrounding erythema or leakage. Nephrostomy tube in place. MUSCULOSKELETAL: No cyanosis, or edema. Patient only moves right upper extremity. Contractures in other extremities BACK: Nontender without obvious deformity. No CVA tenderness. Results - Labs CBC & Chem 7: 04/05/18 04:13 04/07/18 06:21 Laboratory Results - last 24 hr 04/06/18 04/07/18 22:00 06:21 Creatinine 1.02 H Estimated GFR 55 L Urine Color Yellow Urine Clarity Hazy H Urine pH 6.0 Ur Specific [place] 1.013 Urine Protein 100 H Urine Glucose (UA) Negative Urine Ketones Trace H Urine Occult Blood Large H Urine Nitrate Negative Urine Bilirubin Negative Urine Urobilinogen Less than 2 Ur Leukocyte Esterase Large H Urine RBC 86 H Urine WBC 130 H Urine WBC Clumps Few H Ur Squamous Epith Cells <1 Urine Bacteria Rare H Urine Mucus Few H Micro UA Comment Culture indicated Ur Microscopic Review Not Reportable Urine Culture Comments Culture indicated Microbiology 04/06/18 22:00 Clean Catch Urine Urine Culture - Preliminary Immature growth - reincubate 04/04/18 10:08 Blood - Peripheral Aerobic Blood Culture - Preliminary No growth in 3 days 04/04/18 10:08 Blood - Peripheral Anaerobic Blood Culture - Preliminary No growth in 3 days 04/04/18 10:02 Blood - Peripheral Aerobic Blood Culture - Preliminary No growth in 3 days 04/04/18 10:02 Blood - Peripheral Anaerobic Blood Culture - Preliminary No growth in 3 days Assessment and Plan - Plan NEURO: Acute metabolic encephalopathy Previous left hemiplegia with aphasia -Minimize any sedation -Continue gabapentin -PT OT following RESP: -DuoNeb every 6 hours scheduled and as needed -Aggressive pulmonary toilet CV: Hypotension History of hypertension -Normal saline IV fluids 2 L bolus and 84 mL/h -Home medications of hydralazine clonidine and Imdur will be held -Continue aspirin via PEG tube after IR procedures = 04/05. Elevated blood pressures. Likely secondary to improving infection. Will start back on blood pressure medications. = 04/06. Blood pressures continue to be elevated. Will add back Imdur. Continue to monitor blood pressures. =04/07. Monitor blood pressures on Imdur. GI: -N.p.o., IV famotidine : Acute on chronic kidney disease Mild to moderate hydronephrosis on the right with probably dislodged nephrostomy tube Neurogenic bladder Hypernatremia Hypokalemia -Monitor renal function closely. -Fluid resuscitation as above -IR consulted for nephrostomy tube replacement -Nephrology consult if creatinine not improving = 04/04. Creatinine 1.7 from 2.6 yesterday. Sodium has increased significantly. Will switch to half-normal saline. recheck of labs. Discussed with nurse. Appreciate assistance. = 04/06. Creatinine improving 1.26. Potassium 3.0. Replace p.o. and IV. Monitor. =04/07. Follow-up electrolytes. ID: Severe sepsis UTI Gram-negative bacteremia. -Received vancomycin and cefepime in the ED, continue Zosyn and vancomycin renally dose -Blood urine cultures = 04/04. Gram-negative bacteremia. We will repeat cultures. ID following.. No antibiotics. Follow-up cultures. Appreciate assistance. = 04/06. Repeat blood cultures negative times 2 days. Appreciate ID assistance. Continue IV antibiotics. =. Continue IV antibiotics as per infectious disease. HEME: -Monitor CBC, coags ENDO: Type 2 diabetes -Electrolyte replacement per protocol -Sliding scale insulin PROPH: -Bilateral lower extremity SCDs. Lovenox =famotidine LINES: -Utilize peripheral IVs, central line if needed Palliative care following. Discharge Planning: Gram-positive bacteremia. =need ID clearance. Hopefully to SNF when cleared by infectious disease.
[2018-04-07 18:27] LABS: Calcium 8.6 mg/dL (8.5-10.1); Carbon Dioxide 22.5 meq/L (21.0-32.0); Potassium 3.8 meq/L (3.5-5.1)
[2018-04-07] MEDS: Vancomycin Inj 1,250 MG in Sodium Chlor 0.9% Inj 250 ML IV.SIG SCH (20:47)
[2018-04-08] MEDS: Morphine Sulfate Oral Liq 10 MG/0.5 ML Syringe PO PRN ×3 (03:26→19:47)
[2018-04-08] MEDS: Chlorhexidine Gluconate 2% 1 Pack (2 Cloths) TOPICAL SCH (05:02)
[2018-04-08] MEDS: hydrALAZINE 50 MG Tablet G-TUBE SCH ×3 (05:02→21:26)
[2018-04-08 07:09] LABS: Albumin 2.4 g/dL (3.4-5.0); Baso % (Auto) 0.6 % (0.0-2.0); Calcium 9.2 mg/dL (8.5-10.1); Carbon Dioxide 21.1 meq/L (21.0-32.0); Eos # (Auto) 0.3 th/mm3 (0.0-0.4); Eos % (Auto) 3.6 % (0.0-4.0); Hematocrit 28.6 % (35.0-46.0); Hemoglobin 9.2 gm/dL (11.6-15.3); Mean Corpuscular Hemoglobin 26.9 pg (27.0-34.0); Mono # (Auto) 0.3 th/mm3 (0.0-0.9); Mono % (Auto) 3.6 % (0.0-8.0); Neut # (Auto) 5.7 th/mm3 (1.8-7.7); Neut % (Auto) 68.2 % (16.0-70.0); Phosphorus 2.4 mg/dL (2.5-4.9); Platelet Count 193 th/mm3 (150-450); Potassium 4.1 meq/L (3.5-5.1); Red Cell Distribution Width 16.8 % (11.6-17.2); White Blood Count 8.3 th/mm3 (4.0-11.0)
[2018-04-08] MEDS: Sodium Chloride 0.45 % Inj 1,000 ML IV.CONT SCH ×3 (07:30→21:27)
[2018-04-08] MEDS: Beneprotein Powder Packet G-TUBE SCH ×3 (08:07→17:03)
[2018-04-08] MEDS: Gabapentin Liq 250 MG/5 ML UDC G-TUBE SCH ×3 (08:08→17:58)
[2018-04-08] MEDS: Lansoprazole ODT 15 MG Tablet G-TUBE SCH (08:08)
[2018-04-08] MEDS: Sertraline 50 MG Tablet G-TUBE SCH (08:08)
[2018-04-08] MEDS: Senna/Docusate Sodium 8.6/50 MG Tablet PO SCH ×2 (08:08→21:26)
[2018-04-08] MEDS: Metoprolol Tartrate 25 MG Tablet G-TUBE SCH ×2 (08:08→20:16)
[2018-04-08] MEDS: Enoxaparin Inj 30 MG/0.3 ML Syringe SQ SCH (08:08)
[2018-04-08 08:11] LABS: Eosinophils 4 % (0-4); Lymphocytes 18 % (9-44); Metamyelocytes 2 % (0-1); Monocytes 1 % (0-8); Myelocytes 4 % (0-0)
[2018-04-08 08:12] LABS: Platelet Estimate Normal (Normal); Platelet Morphology Normal (Normal)
[2018-04-08] MEDS ORDERED: Bisacodyl 10 MG Supp RECTAL ONE (14:18)
--- NOTE | 2018-04-08 14:23 | P.PNIM ---
Subjective Interval history: Patient partially verbalized before. Indicates that she continues to have bilateral lower extremity pain. Physical Exam Vital signs: Vital Signs 04/07/18 16:00 04/07/18 20:00 04/07/18 21:05 Temperature 98.3 F 98.7 F Pulse Rate 56 L 51 L Respiratory Rate 19 14 Blood Pressure 129/60 180/79 H Pulse Oximetry 98 100 100 04/08/18 00:00 04/08/18 04:00 04/08/18 08:00 Temperature 98.7 F 98.7 F 98.4 F Pulse Rate 59 L 49 L 56 L Respiratory Rate 22 22 16 Blood Pressure 198/69 H 218/94 H 195/76 H Pulse Oximetry 100 100 100 04/08/18 08:23 04/08/18 09:00 04/08/18 12:00 Temperature 98.2 F Pulse Rate 55 L 57 L Respiratory Rate 15 Blood Pressure 197/98 H Pulse Oximetry 99 98 Intake & Output 04/07/18 04/08/18 04/08/18 18:59 06:59 18:59 Intake Total 1060 / 1060 2022.5 / 2022.5 1100 / 1100 Output Total 1350 / 1350 700 / 700 Balance -290 / -290 1322.5 / 1322.5 1100 / 1100 Weight 79 kg Intake: IV 1000 / 1000 1462.5 / 1462.5 1100 / 1100 1/2 Normal Saline Inj 1,000 ML 1000 / 1000 1000 / 1000 1000 / 1000 @ 84 mls/hr IV.CONT .[id number] [facility] Rx#:[id number] Maxipime Inj 2,000 MG In NS Inj 200 / 200 100 / 100 100 ML @ 200 mls/hr IV.SIG Q12H [facility] Rx#:[id number] Vancomycin Inj 1,250 MG In NS 262.5 / 262.5 Inj 250 ML @ 250 mls/hr IV.SIG Q24H [facility] Rx#:[id number] Oral 0 / 0 0 / 0 Tube Feeding 160 / 160 Tube Irrigant 60 / 60 Water Bolus Amount 400 / 400 Other 0 / 0 Output: Stool 0 / 0 Urine/Stool Mix 0 / 0 Urine Amount (Stoma) 1350 / 1350 700 / 700 Nephrostomy Tube Right 1350 / 1350 700 / 700 Other: # Bowel Movements 0 0 # Incontinent Bowel Movements 0 Narrative: GENERAL: Patient lying in bed. Appears comfortable. Partially verbal. SKIN: Warm and dry. HEAD: Normocephalic. EYES: No scleral icterus. No injection or drainage. NECK: Supple, trachea midline. No JVD. CARDIOVASCULAR: Regular rate and rhythm without murmurs, gallops, or rubs. RESPIRATORY: Breath sounds equal bilaterally. No accessory muscle use. GASTROINTESTINAL: Abdomen soft, non-tender, nondistended. PEG tube in place without surrounding erythema or leakage. Nephrostomy tube in place. MUSCULOSKELETAL: No cyanosis, or edema. Patient only moves right upper extremity. Contractures in other extremities BACK: Nontender without obvious deformity. No CVA tenderness. Results - Labs CBC & Chem 7: 04/08/18 05:36 04/08/18 05:36 Laboratory Results - last 24 hr 04/07/18 04/08/18 04/08/18 06:21 05:36 05:36 WBC 8.3 RBC 3.40 L Hgb 9.2 L Hct 28.6 L MCV 84.0 MCH 26.9 L MCHC 32.0 RDW 16.8 Plt Count 193 MPV 9.0 Prelim Diff (Auto) Slide review pending Neut % (Auto) 68.2 Lymph % (Auto) 24.0 [place] % (Auto) 3.6 Eos % (Auto) 3.6 Baso % (Auto) 0.6 Neut # (Auto) 5.7 Lymph # (Auto) 2.0 [place] # (Auto) 0.3 Eos # (Auto) 0.3 Baso # (Auto) 0.0 WBC Differential Manual diff final Seg Neuts % (Manual) 68 Band Neuts % (Manual) 3 Lymphocytes % (Manual) 18 Monocytes % (Manual) 1 Eosinophils % (Manual) 4 Metamyelocytes % (Man) 2 H Myelocytes % (Man) 4 H Abs Neuts (Manual) 6.4 Differential Comment . Platelet Estimate Normal Platelet Morphology Normal Sodium 149 H 146 H Potassium 3.8 D 4.1 Chloride 116 H 114 H Carbon Dioxide 22.5 21.1 Anion Gap 11 11 BUN 36 H 29 H Creatinine 1.05 H 0.81 Estimated GFR 53 L 71 L Random Glucose 81 99 Calcium 8.6 9.2 Phosphorus 2.4 L Albumin 2.4 L Microbiology 04/04/18 10:08 Blood - Peripheral Aerobic Blood Culture - Preliminary No growth in 4 days 04/04/18 10:08 Blood - Peripheral Anaerobic Blood Culture - Preliminary No growth in 4 days 04/04/18 10:02 Blood - Peripheral Aerobic Blood Culture - Preliminary No growth in 4 days 04/04/18 10:02 Blood - Peripheral Anaerobic Blood Culture - Preliminary No growth in 4 days 04/06/18 22:00 Clean Catch Urine Urine Culture - Final 10-50,000 cfu/mL mixed rachna (probable contaminants) Assessment and Plan - Plan NEURO: Acute metabolic encephalopathy Previous left hemiplegia with aphasia -Minimize any sedation -Continue gabapentin -PT OT following RESP: -DuoNeb every 6 hours scheduled and as needed -Aggressive pulmonary toilet CV: Hypotension History of hypertension -Normal saline IV fluids 2 L bolus and 84 mL/h -Home medications of hydralazine clonidine and Imdur will be held -Continue aspirin via PEG tube after IR procedures = 04/05. Elevated blood pressures. Likely secondary to improving infection. Will start back on blood pressure medications. = 04/06. Blood pressures continue to be elevated. Will add back Imdur. Continue to monitor blood pressures. =04/07. Monitor blood pressures on Imdur. = 04/08. Blood pressures elevated. Will add back clonidine, increase hydralazine. Continue to monitor. GI: -N.p.o., IV famotidine //Constipation. Suppository ordered. Monitor. : Acute on chronic kidney disease Mild to moderate hydronephrosis on the right with probably dislodged nephrostomy tube Neurogenic bladder Hypernatremia Hypokalemia -Monitor renal function closely. -Fluid resuscitation as above -IR consulted for nephrostomy tube replacement -Nephrology consult if creatinine not improving = 04/04. Creatinine 1.7 from 2.6 yesterday. Sodium has increased significantly. Will switch to half-normal saline. recheck of labs. Discussed with nurse. Appreciate assistance. = 04/06. Creatinine improving 1.26. Potassium 3.0. Replace p.o. and IV. Monitor. =04/07. Follow-up electrolytes. = 04/08. Creatinine normalized. Sodium 146, improving. Continue to monitor. ID: Severe sepsis UTI Gram-negative bacteremia. -Received vancomycin and cefepime in the ED, continue Zosyn and vancomycin renally dose -Blood urine cultures = 04/04. Gram-negative bacteremia. We will repeat cultures. ID following.. No antibiotics. Follow-up cultures. Appreciate assistance. = 04/06. Repeat blood cultures negative times 2 days. Appreciate ID assistance. Continue IV antibiotics. =. Continue IV antibiotics as per infectious disease. HEME: -Monitor CBC, coags ENDO: Type 2 diabetes -Electrolyte replacement per protocol -Sliding scale insulin PROPH: -Bilateral lower extremity SCDs. Lovenox =famotidine LINES: -Utilize peripheral IVs, central line if needed Palliative care following. Discharge Planning: Gram-positive bacteremia. =need ID clearance. Hopefully to SNF when cleared by infectious disease.
[2018-04-08] MEDS ORDERED: Pharmacy Ordered Lab Info OTHER ONE (19:45)
[2018-04-08] MEDS: Vancomycin Inj 1,250 MG in Sodium Chlor 0.9% Inj 250 ML IV.SIG SCH (19:48)
[2018-04-09] MEDS: Morphine Sulfate Oral Liq 10 MG/0.5 ML Syringe PO PRN ×2 (04:21→06:40)
[2018-04-09] MEDS: hydrALAZINE 50 MG Tablet G-TUBE SCH ×2 (05:16→15:31)
[2018-04-09 08:20] LABS: Albumin 2.4 g/dL (3.4-5.0); Baso # (Auto) 0.1 th/mm3 (0.0-0.2); Baso % (Auto) 0.6 % (0.0-2.0); Calcium 8.6 mg/dL (8.5-10.1); Carbon Dioxide 24.1 meq/L (21.0-32.0); Eos # (Auto) 0.3 th/mm3 (0.0-0.4); Eos % (Auto) 3.7 % (0.0-4.0); Hematocrit 29.1 % (35.0-46.0); Hemoglobin 9.6 gm/dL (11.6-15.3); Lymph # (Auto) 1.5 th/mm3 (1.0-4.8); Lymph % (Auto) 17.2 % (9.0-44.0); Mean Corpuscular HGB Conc 32.8 % (32.0-36.0); Mean Corpuscular Hemoglobin 27.6 pg (27.0-34.0); Mean Corpuscular Volume 84.1 fL (80.0-100.0); Mean Platelet Volume 9.4 fL (7.0-11.0); Mono # (Auto) 0.3 th/mm3 (0.0-0.9); Mono % (Auto) 3.4 % (0.0-8.0); Neut # (Auto) 6.6 th/mm3 (1.8-7.7); Neut % (Auto) 75.1 % (16.0-70.0); Phosphorus 2.3 mg/dL (2.5-4.9); Platelet Count 202 th/mm3 (150-450); Potassium 3.8 meq/L (3.5-5.1); Red Blood Count 3.46 mil/mm3 (4.00-5.30); Red Cell Distribution Width 17.1 % (11.6-17.2); White Blood Count 8.8 th/mm3 (4.0-11.0)
--- NOTE | 2018-04-09 08:24 | P.PNIM ---
Subjective Interval history: She indicates that she is feeling all right. Partially verbal as before. Physical Exam Vital signs: Vital Signs 04/08/18 08:23 04/08/18 09:00 04/08/18 12:00 Temperature 98.2 F Pulse Rate 55 L 57 L Respiratory Rate 15 Blood Pressure 197/98 H Pulse Oximetry 99 98 04/08/18 16:00 04/08/18 20:00 04/09/18 00:00 Temperature 98.3 F 98.1 F 98.6 F Pulse Rate 51 L 44 L 49 L Respiratory Rate 15 12 12 Blood Pressure 159/70 H 176/89 H 181/81 H Pulse Oximetry 100 100 100 04/09/18 04:00 Temperature 98 F Pulse Rate 51 L Respiratory Rate 16 Blood Pressure 198/91 H Pulse Oximetry 99 Intake & Output 04/08/18 04/09/18 04/09/18 18:59 06:59 18:59 Intake Total 1402 / 1402 2196.5 / 2196.5 Output Total 700 / 700 1200 / 1200 Balance 702 / 702 996.5 / 996.5 Weight 71 kg Intake: IV 1100 / 1100 1362.5 / 1362.5 1/2 Normal Saline Inj 1,000 ML 1000 / 1000 1000 / 1000 @ 84 mls/hr IV.CONT .[id number] [facility] Rx#:[id number] Maxipime Inj 2,000 MG In NS Inj 100 / 100 100 / 100 100 ML @ 200 mls/hr IV.SIG Q12H [facility] Rx#:[id number] Vancomycin Inj 1,250 MG In NS 262.5 / 262.5 Inj 250 ML @ 250 mls/hr IV.SIG Q24H [facility] Rx#:[id number] Oral 0 / 0 Tube Feeding 302 / 302 434 / 434 Water Bolus Amount 400 / 400 Output: Stool 0 / 0 Urine/Stool Mix 0 / 0 Urine Amount (Stoma) 700 / 700 1200 / 1200 Nephrostomy Tube Right 700 / 700 1200 / 1200 Other: # Bowel Movements 0 0 # Incontinent Bowel Movements 0 Narrative: GENERAL: Patient lying in bed. Appears comfortable. Partially verbal as before. SKIN: Warm and dry. HEAD: Normocephalic. EYES: No scleral icterus. No injection or drainage. NECK: Supple, trachea midline. No JVD. CARDIOVASCULAR: Regular rate and rhythm without murmurs, gallops, or rubs. RESPIRATORY: Breath sounds equal bilaterally. No accessory muscle use. GASTROINTESTINAL: Abdomen soft, non-tender, nondistended. PEG tube in place without surrounding erythema or leakage. Nephrostomy tube in place. MUSCULOSKELETAL: No cyanosis, or edema. Patient only moves right upper extremity. Contractures in other extremities BACK: Nontender without obvious deformity. No CVA tenderness. Results - Labs CBC & Chem 7: 04/08/18 05:36 04/09/18 07:08 Laboratory Results - last 24 hr 04/09/18 07:08 Sodium 140 Potassium 3.8 Chloride 108 H Carbon Dioxide 24.1 Anion Gap 8 BUN 24 H Creatinine 0.85 Estimated GFR 68 L Random Glucose 123 H Calcium 8.6 Phosphorus 2.3 L Albumin 2.4 L Microbiology 04/04/18 10:08 Blood - Peripheral Aerobic Blood Culture - Preliminary No growth in 4 days 04/04/18 10:08 Blood - Peripheral Anaerobic Blood Culture - Preliminary No growth in 4 days 04/04/18 10:02 Blood - Peripheral Aerobic Blood Culture - Preliminary No growth in 4 days 04/04/18 10:02 Blood - Peripheral Anaerobic Blood Culture - Preliminary No growth in 4 days 04/06/18 22:00 Clean Catch Urine Urine Culture - Final 10-50,000 cfu/mL mixed rachna (probable contaminants) Assessment and Plan - Plan NEURO: Acute metabolic encephalopathy Previous left hemiplegia with aphasia -Minimize any sedation -Continue gabapentin -PT OT following RESP: -DuoNeb every 6 hours scheduled and as needed -Aggressive pulmonary toilet CV: Hypotension History of hypertension -Normal saline IV fluids 2 L bolus and 84 mL/h -Home medications of hydralazine clonidine and Imdur will be held -Continue aspirin via PEG tube after IR procedures = 04/05. Elevated blood pressures. Likely secondary to improving infection. Will start back on blood pressure medications. = 04/06. Blood pressures continue to be elevated. Will add back Imdur. Continue to monitor blood pressures. =04/07. Monitor blood pressures on Imdur. = 04/08. Blood pressures elevated. Will add back clonidine, increase hydralazine. Continue to monitor. = 04/09. Systolic blood pressures in the 190s. Discontinue IV fluids. Continue scheduled medications. GI: -N.p.o., IV famotidine //Constipation. Suppository ordered. Monitor. = 04/09. Discussed with nurse. Continue laxatives. Await bowel movement. : Acute on chronic kidney disease Mild to moderate hydronephrosis on the right with probably dislodged nephrostomy tube Neurogenic bladder Hypernatremia Hypokalemia -Monitor renal function closely. -Fluid resuscitation as above -IR consulted for nephrostomy tube replacement -Nephrology consult if creatinine not improving = 04/04. Creatinine 1.7 from 2.6 yesterday. Sodium has increased significantly. Will switch to half-normal saline. recheck of labs. Discussed with nurse. Appreciate assistance. = 04/06. Creatinine improving 1.26. Potassium 3.0. Replace p.o. and IV. Monitor. =04/07. Follow-up electrolytes. = 04/08. Creatinine normalized. Sodium 146, improving. Continue to monitor. ID: Severe sepsis UTI Gram-negative bacteremia. -Received vancomycin and cefepime in the ED, continue Zosyn and vancomycin renally dose -Blood urine cultures = 04/04. Gram-negative bacteremia. We will repeat cultures. ID following.. No antibiotics. Follow-up cultures. Appreciate assistance. = 04/06. Repeat blood cultures negative times 2 days. Appreciate ID assistance. Continue IV antibiotics. =. Continue IV antibiotics as per infectious disease. HEME: -Monitor CBC, coags ENDO: Type 2 diabetes -Electrolyte replacement per protocol -Sliding scale insulin PROPH: -Bilateral lower extremity SCDs. Lovenox =famotidine LINES: -Utilize peripheral IVs, central line if needed Palliative care following. Discharge Planning: Gram-positive bacteremia. =need ID clearance. Hopefully to SNF when cleared by infectious disease.
[2018-04-09] MEDS: Beneprotein Powder Packet G-TUBE SCH ×3 (09:28→18:47)
[2018-04-09] MEDS: Metoprolol Tartrate 25 MG Tablet G-TUBE SCH (09:29)
[2018-04-09] MEDS: Enoxaparin Inj 30 MG/0.3 ML Syringe SQ SCH (09:29)
[2018-04-09] MEDS: Sertraline 50 MG Tablet G-TUBE SCH (09:30)
[2018-04-09] MEDS: Gabapentin Liq 250 MG/5 ML UDC G-TUBE SCH ×3 (09:30→18:47)
[2018-04-09] MEDS: Lansoprazole ODT 15 MG Tablet G-TUBE SCH (09:30)
[2018-04-09] MEDS: Senna/Docusate Sodium 8.6/50 MG Tablet PO SCH (09:30)
[2018-04-09 12:12] LABS: Eosinophils 6 % (0-4); Lymphocytes 23 % (9-44); Monocytes 1 % (0-8); Myelocytes 3 % (0-0); Platelet Estimate Normal (Normal); Platelet Morphology Normal (Normal)
[2018-04-09] MEDS ORDERED: Pharmacy Ordered Lab Info OTHER ONE (19:45)
[2018-04-10] MEDS: Vancomycin Inj 1,250 MG in Sodium Chlor 0.9% Inj 250 ML IV.SIG SCH (00:26)
[2018-04-10] MEDS: hydrALAZINE 50 MG Tablet G-TUBE SCH ×4 (00:28→23:55)
[2018-04-10] MEDS: Metoprolol Tartrate 25 MG Tablet G-TUBE SCH ×3 (00:28→20:10)
[2018-04-10] MEDS: Senna/Docusate Sodium 8.6/50 MG Tablet PO SCH ×3 (00:28→20:10)
[2018-04-10 04:14] LABS: Albumin 2.4 g/dL (3.4-5.0); Carbon Dioxide 22.2 meq/L (21.0-32.0); Magnesium 1.7 mg/dL (1.5-2.5); Phosphorus 2.5 mg/dL (2.5-4.9); Potassium 3.9 meq/L (3.5-5.1); Vancomycin,Random 24.4 Comment
[2018-04-10 04:59] LABS: Baso % (Auto) 0.3 % (0.0-2.0); Eos # (Auto) 0.2 th/mm3 (0.0-0.4); Eos % (Auto) 2.3 % (0.0-4.0); Hematocrit 31.2 % (35.0-46.0); Hemoglobin 10.4 gm/dL (11.6-15.3); Lymph # (Auto) 1.3 th/mm3 (1.0-4.8); Lymph % (Auto) 12.8 % (9.0-44.0); Mean Corpuscular HGB Conc 33.1 % (32.0-36.0); Mean Corpuscular Hemoglobin 27.2 pg (27.0-34.0); Mean Corpuscular Volume 82.2 fL (80.0-100.0); Mean Platelet Volume 9.2 fL (7.0-11.0); Mono # (Auto) 0.3 th/mm3 (0.0-0.9); Mono % (Auto) 3.4 % (0.0-8.0); Neut # (Auto) 8.1 th/mm3 (1.8-7.7); Neut % (Auto) 81.2 % (16.0-70.0); Platelet Count 172 th/mm3 (150-450); Red Cell Distribution Width 17.1 % (11.6-17.2); White Blood Count 9.9 th/mm3 (4.0-11.0)
[2018-04-10] MEDS: Gabapentin Liq 250 MG/5 ML UDC G-TUBE SCH ×3 (09:17→18:57)
[2018-04-10] MEDS: Lansoprazole ODT 15 MG Tablet G-TUBE SCH (09:18)
[2018-04-10] MEDS: Beneprotein Powder Packet G-TUBE SCH ×3 (09:19→18:57)
[2018-04-10] MEDS: Enoxaparin Inj 30 MG/0.3 ML Syringe SQ SCH (09:19)
[2018-04-10] MEDS: Sertraline 50 MG Tablet G-TUBE SCH (09:19)
[2018-04-10] MEDS ORDERED: Dextrose 50% in Water 50 ML Vial IV.PUSH PRN (10:11)
--- NOTE | 2018-04-10 10:20 | P.PN ---
Subjective Interval history: Follow-up for acute encephalopathy, gram-positive bacteremia, diabetes mellitus. Patient is currently resting in bed. Denies any chest pain, shortness of breath, fever or chills. She continues to have limited verbal communications due to previous CVA. Physical Exam Vital signs: Vital Signs 04/09/18 12:00 04/09/18 16:00 04/09/18 19:19 Temperature 98.1 F 98.5 F Pulse Rate 50 L 51 L Respiratory Rate 14 Blood Pressure 189/84 H 196/81 H Pulse Oximetry 99 99 98 04/09/18 20:00 04/10/18 00:00 04/10/18 04:00 Temperature 98.8 F 98.8 F 99.1 F Pulse Rate 48 L 58 L 48 L Respiratory Rate 16 16 16 Blood Pressure 143/65 H 163/74 H 143/65 H Pulse Oximetry 98 98 98 04/10/18 07:36 Temperature Pulse Rate Respiratory Rate Blood Pressure Pulse Oximetry 100 Intake & Output 04/09/18 04/10/18 04/10/18 18:59 06:59 18:59 Intake Total 1679 / 1679 758 / 758 Output Total 975 / 975 1150 / 1150 Balance 704 / 704 -392 / -392 Intake: IV 1100 / 1100 100 / 100 1/2 Normal Saline Inj 1,000 ML 1000 / 1000 @ 84 mls/hr IV.CONT .[id number] [facility] Rx#:[id number] Maxipime Inj 2,000 MG In NS Inj 100 / 100 100 / 100 100 ML @ 200 mls/hr IV.SIG Q12H [facility] Rx#:[id number] Tube Feeding 579 / 579 458 / 458 Tube Irrigant 200 / 200 Output: Urine 1150 / 1150 Urine Amount (Stoma) 975 / 975 Nephrostomy Tube Right 975 / 975 Other: Date of Last Bowel Movement 04/10/18 # Bowel Movements 2 Narrative: GENERAL: Patient lying in bed. Appears comfortable. Partially verbal as before. SKIN: Warm and dry. HEAD: Normocephalic. EYES: No scleral icterus. No injection or drainage. NECK: Supple, trachea midline. No JVD. CARDIOVASCULAR: Regular rate and rhythm without murmurs, gallops, or rubs. RESPIRATORY: Breath sounds equal bilaterally. No accessory muscle use. GASTROINTESTINAL: Abdomen soft, non-tender, nondistended. PEG tube in place without surrounding erythema or leakage. Nephrostomy tube in place. MUSCULOSKELETAL: No cyanosis, or edema. Patient only moves right upper extremity. Contractures in other extremities BACK: Nontender without obvious deformity. No CVA tenderness. Results - Labs CBC & Chem 7: 04/10/18 04:29 04/10/18 02:41 Laboratory Results - last 24 hr 04/09/18 04/09/18 04/10/18 07:08 21:44 02:41 WBC RBC Hgb Hct MCV MCH MCHC RDW Plt Count MPV Neut % (Auto) Lymph % (Auto) [place] % (Auto) Eos % (Auto) Baso % (Auto) Neut # (Auto) Lymph # (Auto) [place] # (Auto) Eos # (Auto) Baso # (Auto) WBC Differential Manual diff final Seg Neuts % (Manual) 60 Band Neuts % (Manual) 7 H Lymphocytes % (Manual) 23 Monocytes % (Manual) 1 Eosinophils % (Manual) 6 H Myelocytes % (Man) 3 H Abs Neuts (Manual) 6.2 Differential Comment Platelet Estimate Normal Platelet Morphology Normal Sodium 142 Potassium 3.9 Chloride 108 H Carbon Dioxide 22.2 Anion Gap 12 BUN 26 H Creatinine 0.92 Estimated GFR 62 L Random Glucose 116 H Calcium 8.0 L Phosphorus 2.5 Magnesium 1.7 Albumin 2.4 L Vancomycin Trough 27.0 H Random Vancomycin 24.4 04/10/18 04:29 WBC 9.9 RBC 3.80 L Hgb 10.4 L Hct 31.2 L MCV 82.2 MCH 27.2 MCHC 33.1 RDW 17.1 Plt Count 172 MPV 9.2 Neut % (Auto) 81.2 H Lymph % (Auto) 12.8 [place] % (Auto) 3.4 Eos % (Auto) 2.3 Baso % (Auto) 0.3 Neut # (Auto) 8.1 H Lymph # (Auto) 1.3 [place] # (Auto) 0.3 Eos # (Auto) 0.2 Baso # (Auto) 0.0 WBC Differential . Seg Neuts % (Manual) Band Neuts % (Manual) Lymphocytes % (Manual) Monocytes % (Manual) Eosinophils % (Manual) Myelocytes % (Man) Abs Neuts (Manual) Differential Comment Auto diff final Platelet Estimate Platelet Morphology Sodium Potassium Chloride Carbon Dioxide Anion Gap BUN Creatinine Estimated GFR Random Glucose Calcium Phosphorus Magnesium Albumin Vancomycin Trough Random Vancomycin Microbiology 04/04/18 10:08 Blood - Peripheral Aerobic Blood Culture - Final No growth in 5 days 04/04/18 10:08 Blood - Peripheral Anaerobic Blood Culture - Final No growth in 5 days 04/04/18 10:02 Blood - Peripheral Aerobic Blood Culture - Final No growth in 5 days 04/04/18 10:02 Blood - Peripheral Anaerobic Blood Culture - Final No growth in 5 days Assessment and Plan - Plan Ms. Wilson is a pleasant 62-year-old female with a history of diabetes mellitus, previous CVA with left-sided hemiplegia who was admitted to the hospital on 04/03/2018 due to fever, suspected UTI as well as leukocytosis. Patient was initially treated by the critical care team. Her blood culture grew MSSA. 2D echo shows no vegetations. Sepsis (heart rate over 90, respiration of 20, WBC count 16.7 K, suspected infection UTI) Complicated urinary tract infection Gram-positive bacteremia -Infectious diseases on board. 2D echo shows no vegetation -Continue cefepime and vancomycin. Antibiotics can likely be de-escalated. 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 Continue aspirin 81 mg daily. Diabetes mellitus -Blood glucose is well controlled. Will start sliding scale insulin. If needed, will consider long-acting insulin. Hypertension -Continue metoprolol tartrate 25 mg twice daily, isosorbide dinitrate 20 mg every 8 hours -Continue clonidine 0.1 mg 3 times daily, hydralazine 100 mg every 8 hours. Acute kidney injury Hypernatremia Hypokalemia -Electrolytes are within normal range now. Trachea is resolved. Full code. Lovenox.
--- NOTE | 2018-04-10 11:06 | P.DIET ---
Nutritional Evaluation Type of nutrition evaluation: initial Nutrition consult regarding: Tube Feeding Objective - Diagnosis fever - Objective [place] body weight: 59 kg % IBW: 134 Body Weight Used for Calculations: Upper end of IBW Energy Needs - Lower Range (kCal/kg): 28 Energy Needs - Upper Range (kCal/kg): 32 Lower Limit kCal/kg (kCals): 1,652 Upper Limit kCal/kg (kCals): 1,888 Lower Limit Protein Factor (Grams per Kg): 1 Upper Limit Protein Factor (Grams per Kg): 1.3 Lower Protein Needs (Protein): 59 Upper Protein Needs (Protein): 77 Dietitian Reviewed in Medical Record: Current diet, Curent medications, Labs, Medical history, Tube feeding Diet Order: TF Assessment Assessment: Pt. is at nutritional risk due to dx. and need for TFing. Pt. with history of CVA with expressive aphasia left-sided hemiplegia with contracted left upper and lower extremity, neurogenic bladder, recurrent UTI, nephrostomy tube, PEG tube, CKD, anemia, aphasia, presents for worsening encephalopathy, sepsis and possible dislodgment of her nephrostomy tube. Pt. with +UOP and +BM. Wt. with a documented 9kg wt. loss, question this wt. Agree with current TF of Glucerna 1.5 @ goal rate of 45mls/hr but d/c the use of the beneprotein. RNs are documenting "traumatic wound" in wound assessment but does not mention this in their most recent note. Monitor TFing tolerance, labs and possible wound. Recommendations: 1. Agree with current TF of Glucerna 1.5 @ goal rate of 45mls/hr but d/c the use of the beneprotein. 2. Monitor TFing tolerance, labs and possible wound. Dietitian to Monitor: Lab values, Renal labs, Glucose level, Intake & Output, Tube feeding tolerance, Weight change, Residuals, Wound/skin status, Medical course
[2018-04-10] MEDS ORDERED: hydrALAZINE HCl Inj 20 MG/ML Vial IV.PUSH PRN (11:22)
[2018-04-10] MEDS: ceFAZolin 2 GM Premix Inj 2 GM/50 ML PIGGYBACK IV.SIG SCH ×2 (12:32→20:10)
[2018-04-10] MEDS: Insulin NovoLOG Aspart Correctional Sugar Inj SQ SCH ×3 (13:21→22:26)
--- NOTE | 2018-04-10 17:24 | P.PNID ---
Subjective Remarks: repeat blood clx negative - martin; no fever Antibiotics: cefazolin Allergies/Adverse Reactions: Allergies *MDRO Multi-Drug Resistant Organism Adverse Reaction (Unknown, Uncoded 11/10/17 06:21) 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 ESBL + E. 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 Objective Vital Signs 04/09/18 19:19 04/09/18 20:00 04/10/18 00:00 Temperature 98.8 F 98.8 F Pulse Rate 48 L 58 L Respiratory Rate 16 16 Blood Pressure 143/65 H 163/74 H Pulse Oximetry 98 98 98 04/10/18 04:00 04/10/18 07:36 04/10/18 08:00 Temperature 99.1 F Pulse Rate 48 L 56 L Respiratory Rate 16 Blood Pressure 143/65 H Pulse Oximetry 98 100 Intake & Output 04/09/18 04/10/18 04/10/18 18:59 06:59 18:59 Intake Total 1679 / 1679 758 / 758 Output Total 975 / 975 1150 / 1150 Balance 704 / 704 -392 / -392 Intake: IV 1100 / 1100 100 / 100 1/2 Normal Saline Inj 1,000 ML 1000 / 1000 @ 84 mls/hr IV.CONT .[id number] [facility] Rx#:[id number] Maxipime Inj 2,000 MG In NS Inj 100 / 100 100 / 100 100 ML @ 200 mls/hr IV.SIG Q12H [facility] Rx#:[id number] Tube Feeding 579 / 579 458 / 458 Tube Irrigant 200 / 200 Output: Urine 1150 / 1150 Urine Amount (Stoma) 975 / 975 Nephrostomy Tube Right 975 / 975 Other: Date of Last Bowel Movement 04/10/18 # Bowel Movements 2 04/04/18 10:08 Blood - Peripheral Aerobic Blood Culture - Final No growth in 5 days 04/04/18 10:08 Blood - Peripheral Anaerobic Blood Culture - Final No growth in 5 days 04/04/18 10:02 Blood - Peripheral Aerobic Blood Culture - Final No growth in 5 days 04/04/18 10:02 Blood - Peripheral Anaerobic Blood Culture - Final No growth in 5 days 04/06/18 22:00 Clean Catch Urine Urine Culture - Final 10-50,000 cfu/mL mixed rachna (probable contaminants) Lab - Hematology Results 04/09/18 04/10/18 07:08 04:29 WBC 8.8 9.9 RBC 3.46 L 3.80 L Hgb 9.6 L 10.4 L Hct 29.1 L 31.2 L MCV 84.1 82.2 MCH 27.6 27.2 MCHC 32.8 33.1 RDW 17.1 17.1 Plt Count 202 172 MPV 9.4 9.2 Prelim Diff (Auto) Slide review pending Neut % (Auto) 75.1 H 81.2 H Lymph % (Auto) 17.2 12.8 [place] % (Auto) 3.4 3.4 Eos % (Auto) 3.7 2.3 Baso % (Auto) 0.6 0.3 Neut # (Auto) 6.6 8.1 H Lymph # (Auto) 1.5 1.3 [place] # (Auto) 0.3 0.3 Eos # (Auto) 0.3 0.2 Baso # (Auto) 0.1 0.0 WBC Differential Manual diff final . Seg Neuts % (Manual) 60 Band Neuts % (Manual) 7 H Lymphocytes % (Manual) 23 Monocytes % (Manual) 1 Eosinophils % (Manual) 6 H Myelocytes % (Man) 3 H Abs Neuts (Manual) 6.2 Differential Comment . Auto diff final Platelet Estimate Normal Platelet Morphology Normal Lab - Chemistry Results 04/09/18 04/10/18 04/10/18 07:08 02:41 12:36 Sodium 140 142 Potassium 3.8 3.9 Chloride 108 H 108 H Carbon Dioxide 24.1 22.2 Anion Gap 8 12 BUN 24 H 26 H Creatinine 0.85 0.92 Estimated GFR 68 L 62 L POC Glucose 130 H Random Glucose 123 H 116 H Calcium 8.6 8.0 L Phosphorus 2.3 L 2.5 Magnesium 1.7 Albumin 2.4 L 2.4 L 04/10/18 17:06 Sodium Potassium Chloride Carbon Dioxide Anion Gap BUN Creatinine Estimated GFR POC Glucose 135 H Random Glucose Calcium Phosphorus Magnesium Albumin Imaging: ITS Impressions Ureterogram 04/03/18 00:00 CONCLUSION: 1. Uncomplicated right nephroureteral catheter replacement as above. Abdomen/Pelvis CT 04/03/18 05:08 CONCLUSION: 1. Atrophic end-stage left kidney containing coarse calcifications. 2. Right-sided nephroureteral catheter in place with redemonstration of extensive stone encrustation involving the proximal portion of the ureteral stent within the bladder. There are multiple additional stones in the ureter and renal pelvis as well as a dominant staghorn calyceal calcification in the superior pole of the right kidney measuring approximately 2.5 cm. There is persistent mild to moderate hydroureteronephrosis. Consider interventional radiology consultation for possible catheter exchange if there is decreased urine output or if there is concern for urosepsis. 3. Gastrostomy catheter in place. Chest X-Ray 04/04/18 06:54 CONCLUSION: Cardiomegaly. No acute pulmonary disease. Physical Exam: GENERAL: NAD essentially unresponsive SKIN: Warm and dry.No rash EYES: Pupils equal and round. No scleral icterus. No injection or drainage. ENT: No nasal bleeding or discharge. Mucous membranes pink and moist. CARDIOVASCULAR: Regular rate and rhythm. RESPIRATORY: No accessory muscle use. Clear to auscultation. Breath sounds equal bilaterally. GASTROINTESTINAL: Abdomen soft, non-tender, nondistended. Hepatic and splenic margins not palpable. L nephrostomy in place with clear light yellow urine MUSCULOSKELETAL: Extremities without clubbing, cyanosis, or edema. No obvious deformities. NEUROLOGICAL: Lethargic, eyes closed. Non verbal COntracted plegic LUE and b/ l foot drop PSYCHIATRIC: unable to assess Assessment and Plan - Plan UTI, complicated - pt with dislodged R sided nephrostomy Sepsis, MSSA 2 D echo showed no vegetations Coag neg staph 3/4 different morphologies cw contaminant CVA with non verbal bedridden status ARF on CKD: improving dc cefepime, vanco cont ancef 2 weeks from 1st neg culture (thru 04/17) will see as needed
[2018-04-11] MEDS: hydrALAZINE 50 MG Tablet G-TUBE SCH ×2 (05:50→13:04)
[2018-04-11] MEDS: ceFAZolin 2 GM Premix Inj 2 GM/50 ML PIGGYBACK IV.SIG SCH ×2 (05:50→12:09)
[2018-04-11] MEDS: Morphine Sulfate Oral Liq 10 MG/0.5 ML Syringe PO PRN (07:20)
[2018-04-11] MEDS: Gabapentin Liq 250 MG/5 ML UDC G-TUBE SCH ×2 (08:10→13:04)
[2018-04-11] MEDS: Enoxaparin Inj 30 MG/0.3 ML Syringe SQ SCH (08:10)
[2018-04-11] MEDS: Lansoprazole ODT 15 MG Tablet G-TUBE SCH (08:10)
[2018-04-11] MEDS: Insulin NovoLOG Aspart Correctional Sugar Inj SQ SCH ×2 (08:11→13:06)
[2018-04-11] MEDS: Sertraline 50 MG Tablet G-TUBE SCH (08:12)
[2018-04-11] MEDS: Beneprotein Powder Packet G-TUBE SCH ×2 (08:17→12:09)
[2018-04-11] MEDS: Senna/Docusate Sodium 8.6/50 MG Tablet PO SCH (09:34)
--- NOTE | 2018-04-11 11:27 | P.DS ---
Date of admission: 04/03/18 07:02 Primary care physician: Nii Stone MD Attending physician on discharge: Rehana Jauregui Anticipated date of discharge: 04/11/18 Brief History from admission: Patient is a 62-year-old female with history of CVA with expressive aphasia left -sided hemiplegia with contracted left upper and lower extremity, neurogenic bladder, recurrent UTI, nephrostomy tube, PEG tube, CKD, anemia, aphasia, presents for worsening encephalopathy, sepsis and possible dislodgment of her nephrostomy tube. Patient is unable to give detailed history but in the ER it was noted that the nephrostomy tube might be dislodged. Her white count was 16.7 with left shift, patient had a fever of 102.5. BUN was 142 creatinine 2.6. Baseline creatinine is 1.5-2. Patient received fluid resuscitation with 1 L normal saline and also was given IV antibiotic cefepime and vancomycin blood cultures were drawn. Apparently patient is on hospice due to CVA at the retirement. Patient's CODE STATUS was unknown for this reason she was deemed a full code and critical care medicine was consulted I evaluated the patient in the ICU, she appears critically ill she is somnolent but wakes up and moans. Patient is baseline aphasic. I have consulted IR for replacement of the dislodged nephrostomy tube.CT of the abdomen pelvis done in the ED showed right-sided nephroureteral catheter in place with redemonstration of extensive stone encrustation involving the proximal portion of the ureteral stent within the bladder. Multiple additional stones in the ureter and renal pelvis as well as a dominant staghorn calyceal calcification in the superior pole of the right kidney measuring approximately 2.5 cm. There is persistent mild to moderate hydroureteronephrosis. Additional 1 L fluid ordered, maintenance IV fluid, continue antibiotics with vancomycin and Zosyn renally dosed Patient update on day of discharge: Follow-up for acute encephalopathy, gram-positive bacteremia, diabetes mellitus. Patient is currently sitting in her chair. No acute concerns. No fever or chills. Infectious disease cleared for discharge on IV antibiotics through 04/17/2018. DS: Medications - Discharge Medications Prescriptions: cefazolin in dextrose (iso-os) 2 gm IV Q8H 7 Days each morphine concentrate 5 mg FEEDING TUBE Q3H PRN 3 Days each PRN Reason: Pain DS: Summary Hospital Course: Ms. Wilson is a pleasant 62-year-old female with a history of diabetes mellitus, previous CVA with left-sided hemiplegia who was admitted to the hospital on 04/03/2018 due to fever, suspected UTI as well as leukocytosis. Patient was initially treated by the critical care team. Her blood culture grew MSSA. 2D echo shows no vegetations. Sepsis (heart rate over 90, respiration of 20, WBC count 16.7 K, suspected infection UTI) Complicated urinary tract infection Gram-positive bacteremia -Infectious diseases on board. 2D echo shows no vegetation -Continued cefepime and vancomycin. Abx changed to Cefazolin IV by ID, Abx to be continued through 04/17/2018. 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 Continue aspirin 81 mg daily. Diabetes mellitus -Blood glucose is well controlled. Will start sliding scale insulin. If needed, will consider long-acting insulin. Hypertension -Continue metoprolol tartrate 25 mg twice daily, isosorbide dinitrate 20 mg every 8 hours -Continue clonidine 0.1 mg 3 times daily, hydralazine 100 mg every 8 hours. Acute kidney injury Hypernatremia Hypokalemia -Electrolytes are within normal range now. -SIMBA resolved. Full code. ID cleared for discharged on IV cefazolin through 04/17/2018. Patient is going back to SNF under hospice care. I checked [employer] database. Patient is under hospice care and requests some pain medication. We will give her 3 days worth of morphine to be taken with tube feeding. - Time Spent with Patient Total time spent providing and/or coordinating discharge services: Less than 30 minutes Exam Vital signs: Vital Signs 04/10/18 12:00 04/10/18 16:00 04/10/18 19:00 Temperature 97.7 F 98.1 F Pulse Rate 51 L 52 L 61 Respiratory Rate 25 H 22 15 Blood Pressure 179/74 H 139/63 138/65 Pulse Oximetry 98 97 93 L 04/10/18 20:00 04/10/18 21:00 04/10/18 21:12 Temperature 98.4 F Pulse Rate 51 L 58 L Respiratory Rate 108 H 17 Blood Pressure 147/67 H 149/65 H Pulse Oximetry 99 100 100 04/10/18 22:00 04/10/18 23:00 04/11/18 00:00 Temperature 98.5 F Pulse Rate 54 L 48 L 52 L Respiratory Rate 81 H 97 H 56 H Blood Pressure 156/73 H 171/77 H 170/76 H Pulse Oximetry 99 100 97 04/11/18 01:00 04/11/18 02:00 04/11/18 03:00 Temperature Pulse Rate 58 L 54 L 59 L Respiratory Rate 125 H 105 H 25 H Blood Pressure 141/60 H 129/60 147/62 H Pulse Oximetry 97 96 99 04/11/18 04:00 04/11/18 05:00 04/11/18 06:00 Temperature 98.7 F Pulse Rate 50 L 63 60 Respiratory Rate 17 23 17 Blood Pressure 151/69 H 133/55 L 132/62 Pulse Oximetry 100 98 99 04/11/18 07:00 04/11/18 07:42 04/11/18 08:00 Temperature 98.9 F Pulse Rate 66 66 Respiratory Rate 29 H 22 Blood Pressure 116/62 118/61 Pulse Oximetry 99 100 92 L 04/11/18 08:43 04/11/18 09:00 Temperature Pulse Rate 70 66 Respiratory Rate 28 H 16 Blood Pressure 130/65 112/54 L Pulse Oximetry 88 L 96 Intake & Output 04/10/18 04/11/18 04/11/18 18:59 06:59 18:59 Intake Total 1002 / 1002 861 / 861 Output Total 1400 / 1400 1350 / 1350 Balance -398 / -398 -489 / -489 Intake: IV 50 / 50 50 / 50 Ancef 2 GM Premix Inj 2 gm In 50 / 50 50 / 50 50 ml @ 100 mls/hr IV.SIG Q8H [facility] Rx#:[id number] Tube Feeding 552 / 552 411 / 411 Tube Irrigant 400 / 400 Water Bolus Amount 400 / 400 Output: Urine Amount (Stoma) 1400 / 1400 1350 / 1350 Nephrostomy Tube Right 1400 / 1400 1350 / 1350 Other: Date of Last Bowel Movement 04/11/18 # Bowel Movements 2 3 Narrative: GENERAL: Patient lying in bed. Appears comfortable. Partially verbal as before. SKIN: Warm and dry. HEAD: Normocephalic. EYES: No scleral icterus. No injection or drainage. NECK: Supple, trachea midline. No JVD. CARDIOVASCULAR: Regular rate and rhythm without murmurs, gallops, or rubs. RESPIRATORY: Breath sounds equal bilaterally. No accessory muscle use. GASTROINTESTINAL: Abdomen soft, non-tender, nondistended. PEG tube in place without surrounding erythema or leakage. Nephrostomy tube in place. MUSCULOSKELETAL: No cyanosis, or edema. Patient only moves right upper extremity. Contractures in other extremities BACK: Nontender without obvious deformity. No CVA tenderness. Results Procedures completed during hospitalization: Fluoroscopy right Ureteral Stent Replacement 04/03/2018 Labs on day of discharge: Labs from last 24 hours 04/11/18 04/11/18 04/10/18 07:25 04:26 20:49 Creatinine 0.96 Estimated GFR 59 L POC Glucose 148 H 138 H 04/10/18 04/10/18 17:06 12:36 Creatinine Estimated GFR POC Glucose 135 H 130 H - Impressions ITS Impressions Ureterogram 04/03/18 00:00 CONCLUSION: 1. Uncomplicated right nephroureteral catheter replacement as above. Abdomen/Pelvis CT 04/03/18 05:08 CONCLUSION: 1. Atrophic end-stage left kidney containing coarse calcifications. 2. Right-sided nephroureteral catheter in place with redemonstration of extensive stone encrustation involving the proximal portion of the ureteral stent within the bladder. There are multiple additional stones in the ureter and renal pelvis as well as a dominant staghorn calyceal calcification in the superior pole of the right kidney measuring approximately 2.5 cm. There is persistent mild to moderate hydroureteronephrosis. Consider interventional radiology consultation for possible catheter exchange if there is decreased urine output or if there is concern for urosepsis. 3. Gastrostomy catheter in place. Chest X-Ray 04/04/18 06:54 CONCLUSION: Cardiomegaly. No acute pulmonary disease. Discharge Plan - Discharge Disposition Patient Disposition: 03 Discharge to SNF - Discharge Condition Condition: Fair - Discharge Order Discharge Orders: Discharge Order (Routine); Ordered 04/11/18 Ordered By: Rehana Jauregui - Discharge Details Anticipated Discharge Date: 04/11/18 Discharge Comment: Pt is to be discharged under hospice care. - Physicians Team Primary Care Provider: Nii Stone V Attending Provider: Rehana Jauregui Other Providers: Jana Sweeney MD ; Darya Vasquez MD ; [facility],[place]
--- NOTE | 2018-04-11 12:23 | P.DCO ---
Post Hospital Infusion Therapy - Infusion Therapy Location of Infusion Therapy: [facility] Infusion Therapy Order - Patient Information Patient Weight: 71 kg - Diagnosis (1) Sepsis Code(s): A41.9 - Sepsis, unspecified organism - Administer Medication Cefazolin Dose: 2 grams IV Directions: q 8 hours Start Treatment: 04/11/18 Stop Treatment: 04/17/18 - Additional Information Venous Access: PICC Line Additional Instructions: [x] Peripheral flush and dressing changes per protocol [x] Implanted port and central distribution a class lineman: * Implanted port: 10 ml Normal Saline followed by 5 ml Heparin 100 units/ml Heparin flush after each use and monthly to maintain. [] May leave port accessed during therapy. [] May leave peripheral site accessed for duration of therapy. [x] If patient has SOB or respiratory distress, check oxygen saturation. If less than 90% or clinical signs of respiratory distress, administer oxygen at 2 L/min. via nasal cannula and notify physician. [x] Anaphylaxis/Reaction orders: * Stop infusion. * Keep IV line open with saline flush. * Notify physician. * Monitor vital signs every 15 minutes until symptoms resolve. * Check Oxygen saturation; Oxygen at 2 L/min. via nasal cannula if less than 90% or clinical signs of respiratory distress. * Administer diphenhydramine (Benadryl) 25 mg IV STAT, (unless patient has received as pre-med). May repeat once, if necessary. * Solu-Cortef 250 mg IVP over 30-60 seconds, use 100 mg vials for each dissolution. * Epinephrine (1mg/1 ml) 0.3 mg subcutaneously or IVP now with any signs of respiratory distress. * Check with physician for new additional pre-med orders if patient is re- challenged or re-treated. [x] May remove PICC line when treatment complete, after confirming with Physician. [x] If the patient is admitted to the hospital, the ED, or transferred via [facility] , complete transfer form including medication reconciliation order sheet. Weekly Labs: CBC w/diff, Creatinine - Patient Information Allergies *MDRO Multi-Drug Resistant Organism Adverse Reaction (Unknown, Uncoded 11/10/17 06:21) 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 ESBL + E. 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
[2018-04-11] MEDS: Metoprolol Tartrate 25 MG Tablet G-TUBE SCH (12:26)
[2018-04-11 14:52] VITALS: BP 102/56; PULSE 54; RESP 15; TEMP 98.5; O2SAT 99
== END 2018-04-11 16:00 ==
LOC: NEPC 04:45 → NEDA 07:02 → HIMC 08:00
PROVIDERS: ADMIT Hospitalist; ATTEND Hospitalist

== ENCOUNTER 2018-08-05 17:04 | Inpatient (IN) ==
--- NOTE | 2018-08-05 17:57 | ED ---
HPI General Chief complaint: Test Man Problem Stated complaint: nephrostomy tube leaking Time Seen by Provider: 08/05/18 17:49 History of Present Illness HPI narrative: This is a 63-year-old female with multiple medical problems including CVA, chronic kidney disease, schizophrenia, coronary artery disease, atrial fibrillation, sent here from [facility] for evaluation of right nephrostomy tube. According to the report the nephrostomy tube has been leaking for an unknown amount of time. The patient has been seen here in the past for nephrostomy tube placement, most recently May 2018. The patient is not able to provide much additional history. According to chart review she is DNR. Related Data Home Medications Medication Instructions Recorded Confirmed clonidine HCl [Catapres] 0.1 mg FEEDING TUBE TID PRN 01/08/18 08/05/18 isosorbide dinitrate 20 mg FEEDING TUBE Q8HR 01/08/18 08/05/18 magnesium hydroxide [Milk of 30 ml FEEDING TUBE Q4HR PRN 01/08/18 08/05/18 Magnesia] metoprolol tartrate 25 mg FEEDING TUBE BID 01/08/18 08/05/18 multivitamin,yt-esiu-yusrvrwk 1 tab FEEDING TUBE DAILY 01/08/18 08/05/18 [Thera-M] omeprazole 20 mg FEEDING TUBE DAILY 01/08/18 08/05/18 risperidone [Risperdal] 0.5 mg FEEDING TUBE TID 01/08/18 08/05/18 sennosides [senna] 8.6 mg FEEDING TUBE BID 01/08/18 08/05/18 sertraline [Zoloft] 50 mg FEEDING TUBE DAILY 01/08/18 08/05/18 aspirin [Aspirin Low Dose] 81 mg PO DAILY 08/05/18 08/05/18 gabapentin 300 mg FEEDING TUBE TID 08/05/18 08/05/18 gabapentin 300 mg PO DAILY 08/05/18 08/05/18 gabapentin 400 mg PO BID 08/05/18 08/05/18 insulin detemir U-100 [Levemir 5 unit SUBCUT BID 08/05/18 08/05/18 U-100 Insulin] lorazepam 0.5 mg FEEDING TUBE Q4H PRN 08/05/18 08/05/18 methadone 5 mg PO Q8H 08/05/18 08/05/18 morphine concentrate 10 mg SUBLINGUAL Q3H PRN 08/05/18 08/05/18 oxycodone-acetaminophen 1 tab PO Q4H PRN 08/05/18 08/05/18 Previous Rx's Medication Instructions Recorded hydralazine 50 mg FEEDING TUBE Q8HR #0 tab 04/11/18 water for injection, sterile 200 ml PO Q6HR ml 04/11/18 Allergies Allergy/AdvReac Type Severity Reaction Status Date / Time *MDRO Multi-Drug Resistant AdvReac Unknown Uncoded 11/10/17 06:21 Organism Review of Systems ROS: all other systems reviewed are negative [facility] Social History Social History Substance History: Unable to Obtain Second Hand Smoke Exposure: No Smoking Status: Unknown if ever smoked Tobacco Type: Cigarettes How Often Do You Have a Drink Containing Alcohol: Unable to Obtain Recent Travel [facility] within the Last 8 Weeks: No Recent Out of Country Travel within the Last 8 Weeks: No Immunization History Tetanus Immunization: <5 Years Exam Narrative Exam Narrative: GENERAL: Chronically ill-appearing female who is in no acute distress. She is alert and oriented to person and year. SKIN: Warm and dry. Chronic appearing maceration noted on the left chest wall underneath the left upper extremity which is contractured. HEAD: Atraumatic. Normocephalic. EYES: Pupils equal and round. No scleral icterus. No injection or drainage. ENT: No nasal bleeding or discharge. Mucous membranes pink and moist. NECK: Trachea midline. No JVD. CARDIOVASCULAR: Regular rate and rhythm. No murmur appreciated. RESPIRATORY: No accessory muscle use. Clear to auscultation. Breath sounds equal bilaterally. GASTROINTESTINAL: Abdomen soft, non-tender, nondistended. Hepatic and splenic margins not palpable. Examination of the right flank reveals a nephrostomy tube , the suture appears loose and there is urine and soaked through the bandages. there is only a small amount of urine that is actually in the nephrostomy bag. MUSCULOSKELETAL: No obvious deformities. No clubbing. No cyanosis. No edema. NEUROLOGICAL: Awake and alert. Contracturing of the extremities, chronic, noted. Course Initial Documented Vital Signs Temperature 99.4 F 08/05/18 17:55 Pulse Rate 52 L 08/05/18 17:55 Respiratory Rate 17 08/05/18 17:55 Blood Pressure 191/95 H 08/05/18 17:55 Pulse Oximetry 96 08/05/18 17:55 Last Documented Vital Signs Temperature 98.0 F 08/06/18 04:00 Pulse Rate 58 L 08/06/18 04:00 Respiratory Rate 18 08/06/18 04:00 Blood Pressure 184/90 H 08/06/18 06:00 Pulse Oximetry 93 L 08/06/18 04:00 Medical Decision Making KARMEN Attestation KARMEN supervised visit: Yes Attestation: I, Dr. Cameron, have reviewed the advance practice practitioner's documentation and am in agreement, met with the patient face to face, made the diagnosis, and the medical decision making was done by me. The patient was initially evaluated by negro Wood PA. Please see their complete history and physical. *My assessment and Findings: The patient presents with history of presenting from a local care home related to leaking around her nephrostomy tube. The patient has a history of recurrent urinary tract infections and dislodgment of her nephrostomy tube currently in the past. The patient was noted on examination to have the nephrostomy part tube partially dislodged with fenestrations appearing on the tubing that was outside of the patient's body. Leakage of urine was also noted around the nephrostomy tube site. During the course of the patient's emergency department visit, the patient's history, examination, and differential diagnosis were reviewed with the patient. The patient was placed on a facetor with oximetry and frequent blood pressure monitoring. The patient had IV access obtained and blood work sent for analysis. The patient was initially provided Zosyn as antibiotic coverage after UTI was identified as the patient's urine culture has been sensitive to this in the past. The patient's diagnostic studies were reviewed and remarkable for a normal white blood cell count of 6.5, hemoglobin 11.9, platelets 201 with 9.8 eosinophils. PT 10.2, PTT 33.6, chemistries remarkable for sodium of 150, chloride 116, anion gap 3, BUN 20, creatinine 1.56 which is increased compared to her prior kidney function studies, AST is 13, albumin 2.7. The patient's results were discussed with the patient, including the plan of care. I explained that further testing and/ or monitoring is indicated based on the patient's history, examination, and/ or laboratory findings. Therefore, I recommended admission for additional evaluation. The patient expressed understanding and was agreeable with this plan. The patient was admitted to the hospital in guarded condition and sent to a bed under the care of the [facility] service. [facility] Narrative Medical decision making narrative: On examination the patient's urine was very foul-smelling, her temperature was slightly elevated 99.4. IV established, lab work, blood cultures obtained. Urinalysis is suggestive of urinary tract infection, I reviewed her lab work, she has a history of multidrug-resistant Pseudomonas, ESBL E. coli, enterococcus. I reviewed her sensitivities from October 2017, the cultures and sensitivities were sensitive to Zosyn and therefore Zosyn has been administered. Lab work has been reviewed. CBC reveals WBC count of 6.5, lactic acid within normal limits, CMP reveals a GFR of 33, her baseline renal function appears to be around 60. Her BUN is 20 and her creatinine is 1.56. Her sodium is 150 and her chloride is 116. She was given 1 L of normal saline. CT reveals severe hydronephrosis and perinephric standing with hydroureter. The percutaneous nephrostomy tube and nephroureteral stents are noted to be in place by the radiologist however on examination the nephrostomy tube appears dislodged and the coiling appears partially out. The suture is no longer intact. Given the patient's acute kidney injury, perinephric stranding, history of ESBL, multidrug-resistant Pseudomonas, plan is to admit the patient for further treatment. Likely IR evaluation for replacement of the nephrostomy tube. I spoke with the patient's son, Surinder, who patient and is agreeable with the patient be admitted to. I spoke with [facility] as well. Medical Screen Exam Complete: Yes Emergency Medical Condition: Yes Differential Diagnosis Differential Diagnosis: Displaced nephrostomy tube, UTI, pyelonephritis Lab Data Result diagrams: 08/05/18 18:00 08/05/18 19:10 Lab Results 08/05/18 08/05/18 08/05/18 Range/Units 18:00 18:00 18:16 WBC 6.5 (4.0-11.0) th/mm3 RBC 4.43 (4.00-5.30) mil/mm3 Hgb 11.9 (11.6-15.3) gm/dL Hct 36.2 (35.0-46.0) % MCV 81.7 (80.0-100.0) fL MCH 26.9 L (27.0-34.0) pg MCHC 32.9 (32.0-36.0) % RDW 16.2 (11.6-17.2) % Plt Count 201 (150-450) th/mm3 MPV 9.5 (7.0-11.0) fL Neut % (Auto) 54.5 (16.0-70.0) % Lymph % (Auto) 29.9 (9.0-44.0) % Garza % (Auto) 4.7 (0.0-8.0) % Eos % (Auto) 9.8 H (0.0-4.0) % Baso % (Auto) 1.1 (0.0-2.0) % Neut # (Auto) 3.6 (1.8-7.7) th/mm3 Lymph # (Auto) 2.0 (1.0-4.8) th/mm3 Garza # (Auto) 0.3 (0.0-0.9) th/mm3 Eos # (Auto) 0.6 H (0.0-0.4) th/mm3 Baso # (Auto) 0.1 (0.0-0.2) th/mm3 WBC Differential . Differential Comment Auto diff final PT 10.2 (9.8-11.6) sec INR 1.0 Ratio APTT 33.6 H (23.4-31.7) sec Sodium (136-145) meq/L Potassium (3.5-5.1) meq/L Chloride (98-107) meq/L Carbon Dioxide (21.0-32.0) meq/L Anion Gap (5-15) meq/L BUN (7-18) mg/dL Creatinine (0.50-1.00) mg/dL Estimated GFR (>89) mL/min POC Glucose (68-110) mg/dl Random Glucose (74-106) mg/dL Lactic Acid (0.4-2.0) mmol/L Calcium (8.5-10.1) mg/dL Magnesium (1.5-2.5) mg/dL Total Bilirubin (0.2-1.0) mg/dL AST (15-37) U/L ALT (10-53) U/L Alkaline Phosphatase (45-117) U/L Total Protein (6.4-8.2) g/dL Albumin (3.4-5.0) g/dL Urine Color Yellow (Yellw/Straw) Urine Clarity Cloudy H (Clear) Urine pH 6.0 (5.0-8.5) Ur Specific Hamlet 1.013 (1.002-1.035) Urine Protein 100 H (Neg-Trace) mg/dL Urine Glucose (UA) Negative (Negative) mg/dL Urine Ketones Negative (Negative) mg/dL Urine Occult Blood Small H (Negative) Urine Nitrate Positive H (Negative) Urine Bilirubin Negative (Negative) Urine Urobilinogen Less than 2 (Less than 2) mg/dL Ur Leukocyte Esterase Large H (Negative) Urine RBC 65 H (0-3) /hpf Urine WBC (0-5) /hpf Urine WBC Clumps Many H (None) Ur Squamous Epith Cells 3 (0-5) /hpf Urine Bacteria Many H (None) /hpf Urine Yeast (None) /hpf Micro UA Comment Cath-culture ind Ur Microscopic Review Not Reportable Urine Culture Comments Cath-cult indicated 08/05/18 08/05/18 08/05/18 Range/Units 18:16 19:10 19:10 WBC (4.0-11.0) th/mm3 RBC (4.00-5.30) mil/mm3 Hgb (11.6-15.3) gm/dL Hct (35.0-46.0) % MCV (80.0-100.0) fL MCH (27.0-34.0) pg MCHC (32.0-36.0) % RDW (11.6-17.2) % Plt Count (150-450) th/mm3 MPV (7.0-11.0) fL Neut % (Auto) (16.0-70.0) % Lymph % (Auto) (9.0-44.0) % Garza % (Auto) (0.0-8.0) % Eos % (Auto) (0.0-4.0) % Baso % (Auto) (0.0-2.0) % Neut # (Auto) (1.8-7.7) th/mm3 Lymph # (Auto) (1.0-4.8) th/mm3 Garza # (Auto) (0.0-0.9) th/mm3 Eos # (Auto) (0.0-0.4) th/mm3 Baso # (Auto) (0.0-0.2) th/mm3 WBC Differential Differential Comment PT (9.8-11.6) sec INR Ratio APTT (23.4-31.7) sec Sodium 150 H (136-145) meq/L Potassium 3.5 (3.5-5.1) meq/L Chloride 116 H (98-107) meq/L Carbon Dioxide 30.7 (21.0-32.0) meq/L Anion Gap 3 L (5-15) meq/L BUN 20 H (7-18) mg/dL Creatinine 1.56 H (0.50-1.00) mg/dL Estimated GFR 33 L (>89) mL/min POC Glucose (68-110) mg/dl Random Glucose 83 (74-106) mg/dL Lactic Acid 0.6 (0.4-2.0) mmol/L Calcium 8.6 (8.5-10.1) mg/dL Magnesium 2.3 (1.5-2.5) mg/dL Total Bilirubin 0.2 (0.2-1.0) mg/dL AST 13 L (15-37) U/L ALT 11 (10-53) U/L Alkaline Phosphatase 75 (45-117) U/L Total Protein 7.0 (6.4-8.2) g/dL Albumin 2.7 L (3.4-5.0) g/dL Urine Color Naila (Yellw/Straw) Urine Clarity Cloudy H (Clear) Urine pH 7.0 (5.0-8.5) Ur Specific Hamlet 1.012 (1.002-1.035) Urine Protein 100 H (Neg-Trace) mg/dL Urine Glucose (UA) Negative (Negative) mg/dL Urine Ketones Negative (Negative) mg/dL Urine Occult Blood Small H (Negative) Urine Nitrate Positive H (Negative) Urine Bilirubin Negative (Negative) Urine Urobilinogen Less than 2 (Less than 2) mg/dL Ur Leukocyte Esterase Large H (Negative) Urine RBC 33 H (0-3) /hpf Urine WBC (0-5) /hpf Urine WBC Clumps Many H (None) Ur Squamous Epith Cells <1 (0-5) /hpf Urine Bacteria Many H (None) /hpf Urine Yeast Moderate H (None) /hpf Micro UA Comment Culture indicated Ur Microscopic Review Not Reportable Urine Culture Comments Culture indicated 08/06/18 Range/Units 07:33 WBC (4.0-11.0) th/mm3 RBC (4.00-5.30) mil/mm3 Hgb (11.6-15.3) gm/dL Hct (35.0-46.0) % MCV (80.0-100.0) fL MCH (27.0-34.0) pg MCHC (32.0-36.0) % RDW (11.6-17.2) % Plt Count (150-450) th/mm3 MPV (7.0-11.0) fL Neut % (Auto) (16.0-70.0) % Lymph % (Auto) (9.0-44.0) % Garza % (Auto) (0.0-8.0) % Eos % (Auto) (0.0-4.0) % Baso % (Auto) (0.0-2.0) % Neut # (Auto) (1.8-7.7) th/mm3 Lymph # (Auto) (1.0-4.8) th/mm3 Garza # (Auto) (0.0-0.9) th/mm3 Eos # (Auto) (0.0-0.4) th/mm3 Baso # (Auto) (0.0-0.2) th/mm3 WBC Differential Differential Comment PT (9.8-11.6) sec INR Ratio APTT (23.4-31.7) sec Sodium (136-145) meq/L Potassium (3.5-5.1) meq/L Chloride (98-107) meq/L Carbon Dioxide (21.0-32.0) meq/L Anion Gap (5-15) meq/L BUN (7-18) mg/dL Creatinine (0.50-1.00) mg/dL Estimated GFR (>89) mL/min POC Glucose 66 L (68-110) mg/dl Random Glucose (74-106) mg/dL Lactic Acid (0.4-2.0) mmol/L Calcium (8.5-10.1) mg/dL Magnesium (1.5-2.5) mg/dL Total Bilirubin (0.2-1.0) mg/dL AST (15-37) U/L ALT (10-53) U/L Alkaline Phosphatase (45-117) U/L Total Protein (6.4-8.2) g/dL Albumin (3.4-5.0) g/dL Urine Color (Yellw/Straw) Urine Clarity (Clear) Urine pH (5.0-8.5) Ur Specific Hamlet (1.002-1.035) Urine Protein (Neg-Trace) mg/dL Urine Glucose (UA) (Negative) mg/dL Urine Ketones (Negative) mg/dL Urine Occult Blood (Negative) Urine Nitrate (Negative) Urine Bilirubin (Negative) Urine Urobilinogen (Less than 2) mg/dL Ur Leukocyte Esterase (Negative) Urine RBC (0-3) /hpf Urine WBC (0-5) /hpf Urine WBC Clumps (None) Ur Squamous Epith Cells (0-5) /hpf Urine Bacteria (None) /hpf Urine Yeast (None) /hpf Micro UA Comment Ur Microscopic Review Urine Culture Comments Imaging Data Radiologist's impression: Chest X-Ray 08/05/18 17:53 CONCLUSION: No obvious airspace disease. Abdomen/Pelvis CT 08/05/18 19:35 CONCLUSION: 1. Severe right hydronephrosis with percutaneous nephrostomy tube and nephroureteral stents in place. 2. Numerous right renal calculi, as well as bladder calculus and possible calcifications along the course of the nephroureteral stent. Discharge Plan Discharge Disposition Patient Disposition: ED Admit(ED Internal Use Only) Discharge Condition Condition: Stable Discharge Order Discharge Orders: ED Use Only Admit Order (Routine); Ordered 08/05/18 Ordered By: Israel Yu Discharge Details Diagnosis: Nephrostomy tube displaced, Acute UTI, Renal insufficiency Physicians Team ED Provider: Lorelei Cameron ED Midlevel Provider: Israel Yu Primary Care Provider: UNKNOWN, Attending Provider: Sierra Flowers Status ED Status: Left Department Discharge Information Discharge Date/Time: 08/05/18 23:00
[2018-08-05] MEDS ORDERED: Sod Chloride 0.9% Inj 1,000 ML IV.SIG SCH (18:00)
[2018-08-05 18:18] LABS: Baso # (Auto) 0.1 th/mm3 (0.0-0.2); Baso % (Auto) 1.1 % (0.0-2.0); Eos # (Auto) 0.6 th/mm3 (0.0-0.4); Eos % (Auto) 9.8 % (0.0-4.0); Hematocrit 36.2 % (35.0-46.0); Hemoglobin 11.9 gm/dL (11.6-15.3); Lymph % (Auto) 29.9 % (9.0-44.0); Mean Corpuscular HGB Conc 32.9 % (32.0-36.0); Mean Corpuscular Hemoglobin 26.9 pg (27.0-34.0); Mean Corpuscular Volume 81.7 fL (80.0-100.0); Mean Platelet Volume 9.5 fL (7.0-11.0); Mono # (Auto) 0.3 th/mm3 (0.0-0.9); Mono % (Auto) 4.7 % (0.0-8.0); Neut # (Auto) 3.6 th/mm3 (1.8-7.7); Neut % (Auto) 54.5 % (16.0-70.0); Platelet Count 201 th/mm3 (150-450); Red Blood Count 4.43 mil/mm3 (4.00-5.30); Red Cell Distribution Width 16.2 % (11.6-17.2); White Blood Count 6.5 th/mm3 (4.0-11.0)
[2018-08-05 18:34] LABS: Bacteria,Urine Many /hpf; Bilirubin,Urine Negative (Negative); Clarity,Urine Cloudy (Clear); Color,Urine Yellow (Yellw/Straw); Glucose,Urine (UA) Negative (Negative); Leukocyte Esterase,Urine Large (Negative); Nitrite,Urine Positive (Negative); Specific Gravity,Urine 1.013 (1.002-1.035); Squamous Epithelial Cell,Urine 3 /hpf (0-5)
--- NOTE | 2018-08-05 18:36 | XR ---
EXAM DATE: 08/05/2018 6:16 PM EST AGE/SEX: 63 years / Female INDICATIONS: Fever. CLINICAL DATA: This is the patient's initial encounter. Patient reports that signs and symptoms have been present for 1 day and indicates a pain score of Nonresponsive. MEDICAL/SURGICAL HISTORY: Non-responsive. Non-responsive. COMPARISON: [facility] [place], CHEST 1V SINGLE AP, 04/04/2018. . FINDINGS: There is cardiomegaly. The right lung is clear. The patient's hand overlies the left lung base. An ob vious area of consolidation is not seen. CONCLUSION: No obvious airspace disease. Electronically signed by: Zohaib Blevins MD Board Certified Radiologist 08/05/2018 6:34 PM EST
[2018-08-05 18:46] LABS: Bacteria,Urine Many /hpf; Bilirubin,Urine Negative (Negative); Clarity,Urine Cloudy (Clear); Color,Urine Amber (Yellw/Straw); Glucose,Urine (UA) Negative (Negative); Leukocyte Esterase,Urine Large (Negative); Nitrite,Urine Positive (Negative); Specific Gravity,Urine 1.012 (1.002-1.035); Squamous Epithelial Cell,Urine <1 /hpf (0-5)
[2018-08-05 18:49] LABS: Activated Partial Thrombo Time 33.6 sec (23.4-31.7)
[2018-08-05] MEDS ORDERED: Piperacil/Tazo 4.5 GM Premix 4.5 GM/100 ML BAG IV.SIG SCH (19:00)
[2018-08-05 19:01] LABS: Prothrombin Time 10.2 sec (9.8-11.6)
[2018-08-05 19:39] LABS: Albumin 2.7 g/dL (3.4-5.0); Anion Gap 3 meq/L (5-15); Aspartate Aminotransferase 13 U/L (15-37); Blood Urea Nitrogen 20 mg/dL (7-18); Calcium 8.6 mg/dL (8.5-10.1); Carbon Dioxide 30.7 meq/L (21.0-32.0); Chloride 116 meq/L (98-107); Glomerular Filtration Rate 33 mL/min (>89); Glucose,Random 83 mg/dL (74-106); Magnesium 2.3 mg/dL (1.5-2.5); Potassium 3.5 meq/L (3.5-5.1); Sodium 150 meq/L (136-145)
[2018-08-05 19:40] LABS: Alanine Aminotransferase 11 U/L (10-53)
[2018-08-05 19:43] LABS: Alkaline Phosphatase 75 U/L (45-117)
[2018-08-05] MEDS ORDERED: hydrALAZINE 50 MG Tablet PO ONE (20:06)
--- NOTE | 2018-08-05 20:10 | CT ---
EXAM DATE: 08/05/2018 8:00 PM EST AGE/SEX: 63 years / Female INDICATIONS: Abdominal pain. Right nephrostomy tube leaking. CLINICAL DATA: This is the patient's initial encounter. Patient reports that signs and symptoms have been present for 1 day and indicates a pain score of 4/10. MEDICAL/SURGICAL HISTORY: Anemia. Cerebrovascular disease. Diabetes. Hypertension. Chronic k idney disease. Carotid stenosis. Nephrostomy tube, right. Hysterectomy. RADIATION DOSE: 16.91 CTDI (mGy) COMPARISON: [facility] [place], CT ABDOMEN & PELVIS W/O CONTRAST, 04/03/2018. . TECHNIQUE: Multiple contiguous axial images were obtained through the abdomen. Images were obtained using multiple row detector helical technique. Using automated exposure control and adjustment of the mA and/or kV according to patient size, radiation dose was kept as low as reasonably achievable to o btain optimal diagnostic quality images. DICOM format image data is available electronically for rev iew and comparison. FINDINGS: There is a small left effusion. Liver, spleen, gallbladder, pancreas, adrenal glands are unremarkable . The left kidney is atrophic with nonobstructing stones seen. The right kidney demonstrates severe h ydronephrosis and perinephric stranding with hydroureter, and a nephroureteral stent in place. There is calcification surrounding the distal coil of the nephroureteral stent within the bladder, as well as calcifications along the course of the right nephroureteral stent. A percutaneous nephrostomy tube is also seen on the right. There are numerous calcifications in the right kidney including a cluster of calcifications measuring 1.7 cm in transverse dimension on image 37, as well as a calcification a t the lower pole measuring 1 cm. CONCLUSION: 1. Severe right hydronephrosis with percutaneous nephrostomy tube and nephroureteral stents in place . 2. Numerous right renal calculi, as well as bladder calculus and possible calcifications along the c ourse of the nephroureteral stent. Electronically signed by: Zohaib Blevins MD Board Certified Radiologist 08/05/2018 8:09 PM EST
[2018-08-05] MEDS ORDERED: Bisacodyl 10 MG Supp RECTAL PRN (21:56)
[2018-08-05] MEDS ORDERED: Acetaminophen 325 MG Tablet PO PRN (21:56)
[2018-08-05] MEDS ORDERED: Dextrose 50% in Water 50 ML Vial IV.PUSH PRN (22:00)
[2018-08-05] MEDS ORDERED: cloNIDine Susp (NICU) 20 MCG/ML 30 ML Bottle G-TUBE PRN (23:08)
[2018-08-05] MEDS ORDERED: LORazepam 0.5 MG Tablet G-TUBE PRN (23:08)
--- NOTE | 2018-08-05 23:24 | P.HP ---
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 According to the [facility] report the nephrostomy tube has been "leaking" for an unspecified period of time. The patient is unable to provide any additional history. On examination, the right nephrostomy tube appears loose with exposure of fenestrations and urine is soaked through the bandages. Small amount of urine is in the nephrostomy bag. Remainder of review of systems unobtainable secondary to patient's mental status. Review of Systems unobtainable due to mental status PMFSH - History History Provided By: Patient - Medical History Medical History: Medical History (Last Reviewed 08/05/18 @ 23:15 by Christina Pearce MD) Anemia Atrial fibrillation CAD (coronary artery disease) CVA (cerebral vascular accident) Chronic kidney disease (CKD) Diabetes History of carotid stenosis History of cholelithiasis Hyperlipidemia Hypertension Neurogenic bladder Osteoarthritis Schizophrenia - Surgical History Surgical History: Surgical History (Last Reviewed 08/05/18 @ 23:15 by Christina Pearce MD) Hip fracture requiring operative repair History of ankle surgery History of coronary artery stent placement History of tonsillectomy S/P percutaneous endoscopic gastrostomy (PEG) tube placement History of hysterectomy (Resolved) - Family History Family History: Family History (Last Reviewed 08/05/18 @ 23:15 by Christina Pearce MD) Other Hypertension - Social History I have reviewed the patient's Social History: Yes - Tobacco History Second Hand Smoke Exposure: No Smoking Status: Never smoker Tobacco Type: Cigarettes - Alcohol History How Often Do You Have a Drink Containing Alcohol: Monthly or less - Substance Use History Substance History: No History of Abuse - Travel History Recent Travel in the [place] Within the Last 8 Weeks: No Recent Travel Out of the Country Within the Last 8 Weeks: No - Immunization History Tetanus Immunization: <5 Years Medications and Allergies Active Medications: Active Medications Acetaminophen (Tylenol) 650 mg PO Q4H PRN PRN Reason: Temp > 100.4 Al Hydroxide/Mg Hydroxide (Milk Of Magnesia Liq) 30 ml PO Q12H PRN PRN Reason: Mild Constipation Bisacodyl (Dulcolax Supp) 10 mg RECTAL DAILY PRN PRN Reason: SEVERE CONSITIPATION Dextrose (D50w Vial) 50 ml IV.PUSH UNSCH PRN PRN Reason: PER HYPOGLYCEMIA PROTOCOL Glucagon (Glucagon Inj) 1 mg OTHER PRN PRN PRN Reason: for Hypoglycemia Protocol Piperacillin/Tazobactam/Dextrose (Zosyn 3.375 Gm Premix) 3.375 gm in 50 mls @ 100 mls/hr IV.SIG Q6H CLAUDE Insulin Aspart (Novolog Insulin Correctional Sugar Inj) 0 unit SQ ACHS CLAUDE; Protocol Ondansetron HCl (Zofran Inj) 4 mg IV.PUSH Q6H PRN PRN Reason: NAUSEA OR VOMITING Sennosides (Senokot) 17.2 mg PO Q12H PRN PRN Reason: Moderate Constipation Sodium Chloride (Ns Flush) 2 ml IV.FLUSH BID CLAUDE Sodium Chloride (Ns Flush) 2 ml IV.FLUSH PRN PRN PRN Reason: FLUSH AFTER USING IV ACCESS Allergies Allergy/AdvReac Type Severity Reaction Status Date / Time *MDRO Multi-Drug Resistant AdvReac Unknown Uncoded 11/10/17 06:21 Organism Home Medications Medication Instructions Recorded Confirmed Type clonidine HCl [Catapres] 0.1 mg FEEDING TUBE TID PRN 01/08/18 08/05/18 History isosorbide dinitrate 20 mg FEEDING TUBE Q8HR 01/08/18 08/05/18 History magnesium hydroxide [Milk of 30 ml FEEDING TUBE Q4HR PRN 01/08/18 08/05/18 History Magnesia] metoprolol tartrate 25 mg FEEDING TUBE BID 01/08/18 08/05/18 History multivitamin,mg-jcjs-ounnvxzj 1 tab FEEDING TUBE DAILY 01/08/18 08/05/18 History [Thera-M] omeprazole 20 mg FEEDING TUBE DAILY 01/08/18 08/05/18 History risperidone [Risperdal] 0.5 mg FEEDING TUBE TID 01/08/18 08/05/18 History sennosides [senna] 8.6 mg FEEDING TUBE BID 01/08/18 08/05/18 History sertraline [Zoloft] 50 mg FEEDING TUBE DAILY 01/08/18 08/05/18 History aspirin [Aspirin Low Dose] 81 mg PO DAILY 08/05/18 08/05/18 History gabapentin 300 mg FEEDING TUBE TID 08/05/18 08/05/18 History gabapentin 300 mg PO DAILY 08/05/18 08/05/18 History gabapentin 400 mg PO BID 08/05/18 08/05/18 History insulin detemir U-100 [Levemir 5 unit SUBCUT BID 08/05/18 08/05/18 History U-100 Insulin] lorazepam 0.5 mg FEEDING TUBE Q4H PRN 08/05/18 08/05/18 History methadone 5 mg PO Q8H 08/05/18 08/05/18 History morphine concentrate 10 mg SUBLINGUAL Q3H PRN 08/05/18 08/05/18 History oxycodone-acetaminophen 1 tab PO Q4H PRN 08/05/18 08/05/18 History Exam Vital signs: Vital Signs 08/05/18 17:55 08/05/18 17:56 08/05/18 21:45 Temperature 99.4 F Pulse Rate 52 L 49 L Respiratory Rate 17 18 Blood Pressure 191/95 H 170/74 H Pulse Oximetry 96 96 95 Intake & Output 08/05/18 08/05/18 08/06/18 06:59 18:59 06:59 Intake Total 1100 / 1100 Balance 1100 / 1100 Weight 86.636 kg Intake: IV 1100 / 1100 Zosyn 4.5 GM Premix 4.5 gm In 100 / 100 100 ml @ 200 mls/hr IV.SIG ONCE CLAUDE Rx#:[id number] NS Inj 1,000 ML @ 1000 mls/hr 1000 / 1000 IV.SIG BOLUS CLAUDE Rx#:[id number] Narrative: Gen.: No acute distress Head: Normocephalic. Atraumatic. EENT: Pupils equal round and reactive to light. Nose without drainage. Airway intact. Throat without injection. Cardiovascular: Regular rate and rhythm. No murmurs, rubs or gallops. Respiratory: Lungs clear to auscultation bilaterally. No wheezes or rhonchi. Abdomen: Soft, nontender, nondistended. No peritoneal signs. : Loose right sided nephrostomy tube with fenestrations exposed Musculoskeletal: No gross deformities. No edema. Skin: No obvious rashes or erythema. Neuro: Sensory and motor grossly intact. Cranial nerves II through XII grossly intact. Results - Labs CBC & Chem 7: 08/05/18 18:00 08/05/18 19:10 Labs: Laboratory Results - last 24 hr 08/05/18 08/05/18 08/05/18 18:00 18:00 18:16 WBC 6.5 RBC 4.43 Hgb 11.9 Hct 36.2 MCV 81.7 MCH 26.9 L MCHC 32.9 RDW 16.2 Plt Count 201 MPV 9.5 Neut % (Auto) 54.5 Lymph % (Auto) 29.9 [place] % (Auto) 4.7 Eos % (Auto) 9.8 H Baso % (Auto) 1.1 Neut # (Auto) 3.6 Lymph # (Auto) 2.0 [place] # (Auto) 0.3 Eos # (Auto) 0.6 H Baso # (Auto) 0.1 WBC Differential . Differential Comment Auto diff final PT 10.2 INR 1.0 APTT 33.6 H Sodium Potassium Chloride Carbon Dioxide Anion Gap BUN Creatinine Estimated GFR Random Glucose Lactic Acid Calcium Magnesium Total Bilirubin AST ALT Alkaline Phosphatase Total Protein Albumin Urine Color Yellow Urine Clarity Cloudy H Urine pH 6.0 Ur Specific [place] 1.013 Urine Protein 100 H Urine Glucose (UA) Negative Urine Ketones Negative Urine Occult Blood Small H Urine Nitrate Positive H Urine Bilirubin Negative Urine Urobilinogen Less than 2 Ur Leukocyte Esterase Large H Urine RBC 65 H Urine WBC Urine WBC Clumps Many H Ur Squamous Epith Cells 3 Urine Bacteria Many H Urine Yeast Micro UA Comment Cath-culture ind Ur Microscopic Review Not Reportable Urine Culture Comments Cath-cult indicated 08/05/18 08/05/18 08/05/18 18:16 19:10 19:10 WBC RBC Hgb Hct MCV MCH MCHC RDW Plt Count MPV Neut % (Auto) Lymph % (Auto) [place] % (Auto) Eos % (Auto) Baso % (Auto) Neut # (Auto) Lymph # (Auto) [place] # (Auto) Eos # (Auto) Baso # (Auto) WBC Differential Differential Comment PT INR APTT Sodium 150 H Potassium 3.5 Chloride 116 H Carbon Dioxide 30.7 Anion Gap 3 L BUN 20 H Creatinine 1.56 H Estimated GFR 33 L Random Glucose 83 Lactic Acid 0.6 Calcium 8.6 Magnesium 2.3 Total Bilirubin 0.2 AST 13 L ALT 11 Alkaline Phosphatase 75 Total Protein 7.0 Albumin 2.7 L Urine Color Naila Urine Clarity Cloudy H Urine pH 7.0 Ur Specific [place] 1.012 Urine Protein 100 H Urine Glucose (UA) Negative Urine Ketones Negative Urine Occult Blood Small H Urine Nitrate Positive H Urine Bilirubin Negative Urine Urobilinogen Less than 2 Ur Leukocyte Esterase Large H Urine RBC 33 H Urine WBC Urine WBC Clumps Many H Ur Squamous Epith Cells <1 Urine Bacteria Many H Urine Yeast Moderate H Micro UA Comment Culture indicated Ur Microscopic Review Not Reportable Urine Culture Comments Culture indicated - Imaging Impressions Chest X-Ray 08/05/18 17:53 CONCLUSION: No obvious airspace disease. Abdomen/Pelvis CT 08/05/18 19:35 CONCLUSION: 1. Severe right hydronephrosis with percutaneous nephrostomy tube and nephroureteral stents in place. 2. Numerous right renal calculi, as well as bladder calculus and possible calcifications along the course of the nephroureteral stent. Caprini VTE Risk Assessment Caprini VTE Risk Assessment: Moderate/High Risk (score >= 2) Caprini Risk Assessment Model: Point Value = 1 Point Value = 2 Point Value = 3 Point Value = 5 Age 41-60 Minor surgery BMI > 25 kg/m2 Swollen legs Varicose veins or History of unexplained or recurrent spontaneous Oral contraceptives or hormone replacement Sepsis (< 1 month) Serious lung disease, including pneumonia (< 1 month) Abnormal pulmonary function Acute myocardial infarction Congestive heart failure (< 1 month) History of inflammatory bowel disease Medical patient at bed rest Age 61-74 Arthroscopic surgery Major open surgery (> 45 min) Laparoscopic surgery (> 45 min) Malignancy Confined to bed (> 72 hours) Immobilizing plaster cast Central venous access Age >= 75 History of VTE Family history of VTE Factor V Leiden Prothrombin [id number] Lupus anticoagulant Anticardiolipin antibodies Elevated serum homocysteine Heparin-induced thrombocytopenia Other congenital or acquired thrombophilia Stroke (< 1 month) Elective arthroplasty Hip, pelvis, or leg fracture Acute spinal cord injury (< 1 month) Prophylaxis Regimen: Total Risk Factor Score Risk Level Prophylaxis Regimen 0-1 Low Early ambulation 2 Moderate Order ONE of the following: *Sequential Compression Device (SCD) *Heparin 5000 units SQ BID 3-4 Higher Order ONE of the following medications: *Heparin 5000 units SQ TID *Enoxaparin/Lovenox 40 mg SQ daily (WT < 150 kg, CrCl > 30 mL/min) *Enoxaparin/Lovenox 30 mg SQ daily (WT < 150 kg, CrCl > 10-29 mL/min) *Enoxaparin/Lovenox 30 mg SQ BID (WT < 150 kg, CrCl > 30 mL/min) AND/OR *Sequential Compression Device (SCD) 5 or more Highest Order ONE of the following medications: *Heparin 5000 units SQ TID (Preferred with Epidurals) *Enoxaparin/Lovenox 40 mg SQ daily (WT < 150 kg, CrCl > 30 mL/min) *Enoxaparin/Lovenox 30 mg SQ daily (WT < 150 kg, CrCl > 10-29 mL/min) *Enoxaparin/Lovenox 30 mg SQ BID (WT < 150 kg, CrCl > 30 mL/min) AND *Sequential Compression Device (SCD) Assessment and Plan - Plan Assessment/plan: 1. Right nephrostomy tube malfunction Interventional radiology consulted for replacement of right nephrostomy tube 2. Urinary tract infection UA consistent with UTI Urine culture pending Previous cultures has shown susceptibility to Zosyn Zosyn while cultures pending 3. Diabetes mellitus Continue home Levemir Sliding-scale insulin Monitor blood glucose 4. Hypertension Continue home clonidine and hydralazine 5. Schizophrenia Continue Risperdal and sertraline 6. Chronic kidney disease Creatinine 1.56, baseline 0.9 IV fluid hydration Monitor renal function FEN N.p.o. NS at 70 cc/hour Electrolytes: Monitor and replete as needed Holding pharmacologic anticoagulation for procedure
[2018-08-05] MEDS ORDERED: Sod Chloride 0.9% Inj 1,000 ML IV.CONT SCH (23:30)
[2018-08-06] MEDS: Methadone 10 MG Tablet PO SCH ×5 (00:10→22:29)
[2018-08-06] MEDS: Piperacil/Tazo 3.375 GM Premix 3.375 GM/50 ML PIGGYBACK IV.SIG SCH ×2 (01:30→08:47)
[2018-08-06] MEDS ORDERED: hydrALAZINE HCl Inj 20 MG/ML Vial IV.PUSH ONE (05:53)
[2018-08-06] MEDS: hydrALAZINE 50 MG Tablet G-TUBE SCH ×3 (07:10→21:17)
[2018-08-06] MEDS: Insulin Detemir Inj 1,000 UNIT/10 ML Vial SQ SCH ×2 (08:40→21:18)
[2018-08-06] MEDS: Metoprolol Tartrate 25 MG Tablet G-TUBE SCH ×2 (08:40→21:15)
[2018-08-06] MEDS: Insulin NovoLOG Aspart Correctional Sugar Inj SQ SCH ×4 (08:40→20:58)
[2018-08-06] MEDS ORDERED: Sertraline 50 MG Tablet G-TUBE SCH (09:00)
--- NOTE | 2018-08-06 10:02 | P.PNIM ---
Subjective Interval history: Follow-up for UTI, dislodged nephrostomy tube. The patient is awake, alert, oriented to self only. She denies any fever/chills, headache, chest pain, shortness of breath, or abdominal complaints. She states she has been feeding herself for a year now when asked why her PEG tube was removed. Discussed with RN and hospice nurse. Physical Exam Vital signs: Vital Signs 08/05/18 17:55 08/05/18 17:56 08/05/18 21:45 Temperature 99.4 F Pulse Rate 52 L 49 L Respiratory Rate 17 18 Blood Pressure 191/95 H 170/74 H Pulse Oximetry 96 96 95 08/06/18 00:07 08/06/18 02:21 08/06/18 04:00 Temperature 98.0 F Pulse Rate 61 58 L Respiratory Rate 16 16 18 Blood Pressure 138/86 186/81 H Pulse Oximetry 93 L 08/06/18 05:27 08/06/18 06:00 08/06/18 08:06 Temperature 98.7 F Pulse Rate 64 Respiratory Rate 20 Blood Pressure 168/80 H 184/90 H 112/73 Pulse Oximetry 95 Intake & Output 08/05/18 08/06/18 08/06/18 18:59 06:59 18:59 Intake Total 1150 / 1150 50 / 50 Balance 1150 / 1150 50 / 50 Weight 86.636 kg Intake: IV 1150 / 1150 50 / 50 Zosyn 3.375 GM Premix 3.375 gm 50 / 50 50 / 50 In 50 ml @ 100 mls/hr IV.SIG Q6H CLAUDE Rx#:[id number] Zosyn 4.5 GM Premix 4.5 gm In 100 / 100 100 ml @ 200 mls/hr IV.SIG ONCE CLAUDE Rx#:[id number] NS Inj 1,000 ML @ 1000 mls/hr 1000 / 1000 IV.SIG BOLUS CLAUDE Rx#:[id number] Other: # Voids 2 Narrative: GENERAL: Chronically ill-appearing middle-aged female patient in NAD. Generalized weakness. SKIN: Warm and dry. No rash. HEENT: Normocephalic. Atraumatic. Pupils equal and round. Mucous membranes pink and moist. CARDIOVASCULAR: Regular rate and rhythm. No murmur appreciated. RESPIRATORY: No accessory muscle use. Clear to auscultation. Breath sounds equal bilaterally. GASTROINTESTINAL: Abdomen soft, non-tender, nondistended. Normoactive bowel sounds x4. Old PEG tube site closed without any drainage. MUSCULOSKELETAL: No obvious deformities. Extremities without clubbing, cyanosis , or edema. Left flank nephrostomy tube, covered with dressing. NEUROLOGICAL: Awake and alert, oriented to self only. Left-sided hemiplegia with left upper extremity contracture. Slurred speech, however mostly able to understand. PSYCHIATRIC: Appropriate mood and affect; insight and judgment limited. Results Labs CBC & Chem 7: 08/05/18 18:00 08/05/18 19:10 Imaging Imaging: Impressions Chest X-Ray 08/05/18 17:53 CONCLUSION: No obvious airspace disease. Abdomen/Pelvis CT 08/05/18 19:35 CONCLUSION: 1. Severe right hydronephrosis with percutaneous nephrostomy tube and nephroureteral stents in place. 2. Numerous right renal calculi, as well as bladder calculus and possible calcifications along the course of the nephroureteral stent. 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 Right nephrostomy tube malfunction: -Interventional radiology consulted for replacement of right nephrostomy tube Complicated UTI: -UA consistent with UTI -Urine culture pending -Previous cultures has shown susceptibility to Zosyn -Continue on IV Zosyn while cultures pending Diabetes mellitus: -Continue home Levemir -Sliding-scale insulin -Monitor blood glucose -Episode of hypoglycemia this morning, responded to glucagon, will change fluids to D5 while NPO Hypertension: -Continue home clonidine and hydralazine Schizophrenia: -Continue Risperdal and sertraline Chronic kidney disease: Creatinine 1.56, baseline 0.9 -Continue IV fluid hydration -Monitor renal function CVA: chronic with left sided hemiplegia and dysphagia -patient on pureed diet with nectar thickened liquids at SNF, per [facility] hospice , will continue -continue home meds DVT Prophylaxis: Holding pharmacologic anticoagulation for procedure Discharge Planning: The patient is currently under hospice care at [facility], discussed with hospice nurse. We will plan to replace nephrostomy tube, treat UTI, and return to SNF. Progress Note: Quality VTE Deep Vein Thrombosis/Pulmonary Embolism Present on Admission: No
[2018-08-06] MEDS: KCL 20 mEq/D5W/NaCl 0.45% Inj 1,000 ML IV.CONT SCH ×2 (12:23→22:30)
[2018-08-06] MEDS: Piperacil/Tazo 2.25 GM Premix 2.25 GM/50 ML PIGGYBACK IV.SIG SCH ×2 (14:36→22:10)
[2018-08-06] MEDS ORDERED: fentaNYL Citrate Inj 250 MCG/5 ML Ampul ONE (15:29)
--- NOTE | 2018-08-06 16:01 | P.RAD ---
Post Procedure Progress Note - Pre Procedure Diagnosis (1) Nephrostomy tube displaced - Post Procedure Diagnosis (1) Nephrostomy tube displaced - Procedure Information Procedure Date: 08/06/18 Supervising Radiologist: Manpreet Zamudio MD Estimated blood loss (mL): 0 Anesthesia: Local, Conscious Sedation - Plan of Activity Patient to Unit: Other Patient Condition: Poor Additional Comments: Right Nephroureteral stent replaced without difficulty. Full dictated report to follow See PACS Report for procedural detail/treatment.
[2018-08-07] MEDS: Piperacil/Tazo 2.25 GM Premix 2.25 GM/50 ML PIGGYBACK IV.SIG SCH ×4 (01:55→22:31)
[2018-08-07] MEDS: KCL 20 mEq/D5W/NaCl 0.45% Inj 1,000 ML IV.CONT SCH ×3 (01:59→19:49)
[2018-08-07] MEDS: hydrALAZINE 50 MG Tablet G-TUBE SCH (05:51)
--- NOTE | 2018-08-07 08:39 | P.PNIM ---
Subjective Interval history: Follow-up for UTI, dislodged nephrostomy tube. Patient had her nephrostomy tube replaced by IR yesterday 08/06. Patient denies any abdominal pain, back pain, or nausea/vomiting. She did have low-grade fevers overnight with T-max 100.2. Patient denies feeling feverish. Denies any chills. Denies any other medical complaints at this time. Discussed with RN, blood sugars have been low, although patient did not eat much yesterday due to being n.p.o., holding insulin today. Physical Exam Vital signs: Vital Signs 08/06/18 11:41 08/06/18 16:16 08/06/18 16:46 Temperature 99.2 F 98.6 F Pulse Rate 64 69 72 Respiratory Rate 20 19 19 Blood Pressure 180/83 H 190/98 H 187/87 H Pulse Oximetry 96 94 L 95 08/06/18 17:16 08/06/18 19:40 08/07/18 00:00 Temperature 98.6 F 100.1 F H Pulse Rate 63 66 60 Respiratory Rate 20 16 14 Blood Pressure 182/83 H 181/92 H 174/77 H Pulse Oximetry 96 97 95 08/07/18 04:00 Temperature 100.2 F H Pulse Rate 60 Respiratory Rate 16 Blood Pressure 128/59 L Pulse Oximetry 94 L Intake & Output 08/06/18 08/07/18 08/07/18 18:59 06:59 18:59 Intake Total 800 / 800 1220 / 1220 Output Total 750 / 750 Balance 800 / 800 470 / 470 Intake: IV 800 / 800 1100 / 1100 D5W/1/2NS + KCL 20 mEq Inj 1, 1000 / 1000 000 ML @ 100 mls/hr IV.CONT . Q10H CLAUDE Rx#:[id number] NS Inj 1,000 ML @ 70 mls/hr IV. 700 / 700 CONT .[id number] CLAUDE Rx#:[id number] Zosyn 2.25 GM Premix 2.25 gm In 50 / 50 100 / 100 50 ml @ 100 mls/hr IV.SIG Q6H CLAUDE Rx#:[id number] Zosyn 3.375 GM Premix 3.375 gm 50 / 50 In 50 ml @ 100 mls/hr IV.SIG Q6H CLAUDE Rx#:[id number] Oral 120 / 120 Output: Urine Amount (Stoma) 750 / 750 Nephrostomy Tube Right 750 / 750 Other: # Voids 6 Narrative: GENERAL: Chronically ill-appearing middle-aged female patient in NAD. Generalized weakness. SKIN: Warm and dry. No rash. HEENT: Normocephalic. Atraumatic. Pupils equal and round. Mucous membranes pink and moist. CARDIOVASCULAR: Regular rate and rhythm. No murmur appreciated. RESPIRATORY: No accessory muscle use. Clear to auscultation. Breath sounds equal bilaterally. GASTROINTESTINAL: Abdomen soft, non-tender, nondistended. Normoactive bowel sounds x4. Old PEG tube site closed without any drainage. MUSCULOSKELETAL: No obvious deformities. Extremities without clubbing, cyanosis , or edema. Nephrostomy tube in place, covered with dressing. NEUROLOGICAL: Awake and alert, oriented to self only. Left-sided hemiplegia with left upper extremity contracture. Slurred speech, however mostly able to understand, answer simple questions, follows commands. PSYCHIATRIC: Appropriate mood and affect; insight and judgment limited. Results Labs CBC & Chem 7: 08/05/18 18:00 08/05/18 19:10 Labs: Microbiology 08/05/18 18:16 Random Urine Urine Culture - Preliminary gram negative rods 08/05/18 18:16 Catheterized Urine Urine Culture - Preliminary gram negative rods 08/05/18 17:55 Blood - Peripheral Aerobic Blood Culture - Preliminary No growth in 1 day 08/05/18 17:55 Blood - Peripheral Anaerobic Blood Culture - Preliminary No growth in 1 day 08/05/18 18:00 Blood - Peripheral Aerobic Blood Culture - Preliminary No growth in 1 day 08/05/18 18:00 Blood - Peripheral Anaerobic Blood Culture - Preliminary No growth in 1 day Assessment and Plan Plan 63-year-old female under hospice with a past medical history of CVA with expressive aphasia and left-sided hemiplegia, neurogenic bladder, recurrent UTIs , nephrostomy tube, PEG tube, CKD, anemia, diabetes and hypertension presents to the emergency department from [facility] for evaluation of nephrostomy tube. Right nephrostomy tube malfunction: -S/p right nephrostomy tube replacement by IR on 08/06 -Monitor output, functioning well Complicated UTI: -UA consistent with UTI -Preliminary urine culture with gram-negative rods -Previous cultures has shown susceptibility to Zosyn -Continue on IV Zosyn until culture and sensitivities resulted -Patient with mild fever today T-max 100.2, continue to monitor Tylenol prn Diabetes mellitus: -Continue home Levemir -Sliding-scale insulin -Monitor blood glucose -Episodes of hypoglycemia while n.p.o., holding insulin today, continue fluids with D5 Hypertension: -Continue home clonidine and hydralazine Schizophrenia: -Continue Risperdal and sertraline Chronic kidney disease: Creatinine 1.56, baseline 0.9 -Continue IV fluid hydration -Monitor renal function -Repeat BMP ordered today, pending CVA: chronic with left sided hemiplegia and dysphagia -patient on pureed diet with nectar thickened liquids at SNF, per hospice social worker , will continue -RN or [employer] to assist with all feedings -continue home meds DVT Prophylaxis: Teds/SCDs, holding pharmacologic anticoagulation due to procedure Discharge Planning: The patient is currently under hospice care at SNF, discussed with hospice nurse. Nephrostomy tube has been replaced, however still treating for complicated UTI, awaiting final cultures and fever to resolve. Progress Note: Quality VTE Deep Vein Thrombosis/Pulmonary Embolism Present on Admission: No
[2018-08-07] MEDS: Insulin NovoLOG Aspart Correctional Sugar Inj SQ SCH ×4 (10:00→22:42)
[2018-08-07] MEDS: Methadone 10 MG Tablet PO SCH ×2 (10:01→22:44)
[2018-08-07] MEDS: Sertraline 50 MG Tablet PO SCH (10:01)
[2018-08-07] MEDS: Insulin Detemir Inj 1,000 UNIT/10 ML Vial SQ SCH ×2 (10:02→22:45)
[2018-08-07] MEDS: Metoprolol Tartrate 25 MG Tablet PO SCH ×2 (10:02→22:46)
--- NOTE | 2018-08-07 13:07 | IR ---
EXAM DATE: 08/06/2018 4:26 PM EST AGE/SEX: 63 years / Female INDICATIONS: Patient with history of chronic kidney disease presents with dislodged nephroureteral s tent in need of exchange. CLINICAL DATA: This is the patient's initial encounter. Patient reports that signs and symptoms have been present for 2 days and indicates a pain score of 0/10. MEDICAL/SURGICAL HISTORY: . Anemia, A-Fib, CAD, CVA, Chronic kidney disease, Diabetes, Carotid stenosis, Cholelithiasis, Hyperlipidemia, Hypertension, Neurogenic bladder, Osteoarthritis, Schizophr enia . Hip surgery, Ankle surgery, Coronary artery stent, Tonsillectomy, PEG tube, Hysterectomy. COMPARISON: [facility], NEPHROURETERAL CATHETER EXCH RT, 06/11/2018. . FLUORO TIME (min): 1.2 IMAGE SERIES: 2 RADIATION DOSE: 19.0 mGy CAK SEDATION TIME (min): 30 MEDICATION(S): 1 mg midazolam (Versed) IV 50 mcg fentanyl (Sublimaze) IV Prophylactic antibiotics were administered with appropriate pre-procedure timing. DEVICE(S): 8 [place] nephroureteral stent 26 cm Expel with TwistLoc . . PROCEDURE: 1. Antegrade percutaneous pyelogram. 2. Nephroureteral catheter exchange. 3. Conscious sedation with continuous EKG and oximetry monitoring. The risks, benefits and alternatives to the procedure were explained and verbal and written consent w as obtained. The site was prepped in sterile fashion. Full sterile technique was used, including ca p, mask, sterile gloves and gown and a large sterile sheet. Hand hygiene and 2% chlorhexidine and/or betadine/alcohol prep was utilized per protocol for cutaneous antisepsis. The skin and subcutaneous tissues were infiltrated with local anesthetic solution. With fluoroscopic guidance the existing nep hroureteral stent was accessed. An 035 wire was advanced through the stent into the bladder. A new 26 cm nephroureteral stent was advanced over the wire and positioned without difficulty. The new stent is placed immediately adjacent to it indwelling internal stent which appears without significant ston e encrustation around the proximal and distal ends. Conscious sedation was performed with the prescribed dosages and duration as above in the presence of an independent trained radiology nurse to assist in the monitoring of the patient. EKG and oximetry remained stable throughout the procedure. The patient tolerated the procedure well and there were n o complications. The patient was sent to post anesthesia recovery in stable condition. CONCLUSION: 1. Uncomplicated nephroureteral catheter exchange as above. Electronically signed by: Manpreet Zamudio MD Board Certified Radiologist 08/07/2018 1:06 PM EST
[2018-08-07] MEDS: hydrALAZINE 50 MG Tablet PO SCH ×2 (13:55→22:30)
[2018-08-08] MEDS: Methadone 10 MG Tablet PO SCH ×4 (01:21→23:09)
[2018-08-08] MEDS: Piperacil/Tazo 2.25 GM Premix 2.25 GM/50 ML PIGGYBACK IV.SIG SCH ×2 (01:40→13:24)
[2018-08-08] MEDS: KCL 20 mEq/D5W/NaCl 0.45% Inj 1,000 ML IV.CONT SCH ×4 (02:54→23:14)
[2018-08-08] MEDS: hydrALAZINE 50 MG Tablet PO SCH ×3 (05:24→23:09)
--- NOTE | 2018-08-08 08:20 | P.PNIM ---
Subjective Interval history: Follow-up for complicated UTI with nephrostomy tube. Patient is awake, alert, denies any specific medical complaints except for her legs feeling sore today. Denies any fever or chills. Denies any abdominal pain, nausea/vomiting. Denies any chest pain or shortness of breath. States she is hungry. No other concerns reported by RN. Physical Exam Vital signs: Vital Signs 08/07/18 13:22 08/07/18 16:00 08/07/18 20:00 Temperature 99.1 F 99.8 F H 99.3 F Pulse Rate 52 L 51 L 57 L Respiratory Rate 18 16 16 Blood Pressure 126/59 L 158/72 H 171/82 H Pulse Oximetry 94 L 91 L 08/07/18 23:19 08/08/18 04:27 08/08/18 07:46 Temperature 99.1 F 98.9 F 99.1 F Pulse Rate 61 55 L 56 L Respiratory Rate 16 16 19 Blood Pressure 122/59 L 156/74 H 147/72 H Pulse Oximetry 90 L 94 L 95 Intake & Output 08/07/18 08/08/18 08/08/18 18:59 06:59 18:59 Intake Total 1100 / 1100 1100 / 1100 Output Total 1000 / 1000 650 / 650 Balance 100 / 100 450 / 450 Intake: IV 1100 / 1100 1100 / 1100 D5W/1/2NS + KCL 20 mEq Inj 1, 1000 / 1000 1000 / 1000 000 ML @ 100 mls/hr IV.CONT . Q10H [facility] Rx#:[id number] Zosyn 2.25 GM Premix 2.25 gm In 100 / 100 100 / 100 50 ml @ 100 mls/hr IV.SIG Q6H [facility] Rx#:[id number] Output: Urine 1000 / 1000 650 / 650 Other: Date of Last Bowel Movement 07/07/18 # Bowel Movements 1 Narrative: GENERAL: Chronically ill-appearing middle-aged female patient in NAD. Generalized weakness. SKIN: Warm and dry. No rash. HEENT: Normocephalic. Atraumatic. Pupils equal and round. Mucous membranes pink and moist. CARDIOVASCULAR: Regular rate and rhythm. No murmur appreciated. RESPIRATORY: No accessory muscle use. Clear to auscultation. Breath sounds equal bilaterally. GASTROINTESTINAL: Abdomen soft, non-tender, nondistended. Normoactive bowel sounds x4. Old PEG tube site closed without any drainage. MUSCULOSKELETAL: No obvious deformities. Extremities without clubbing, cyanosis , or edema. Nephrostomy tube in place, covered with dressing. NEUROLOGICAL: Awake and alert, oriented to self only. Left-sided hemiplegia with left upper extremity contracture. Slurred speech, however mostly able to understand, answer simple questions, follows commands. PSYCHIATRIC: Appropriate mood and affect; insight and judgment limited. Results Labs CBC & Chem 7: 08/05/18 18:00 08/05/18 19:10 Labs: Microbiology 08/05/18 18:16 Random Urine Urine Culture - Preliminary Escherichia coli gram negative rods 08/05/18 18:16 Catheterized Urine Urine Culture - Preliminary Escherichia coli gram negative rods 08/05/18 17:55 Blood - Peripheral Aerobic Blood Culture - Preliminary No growth in 2 days 08/05/18 17:55 Blood - Peripheral Anaerobic Blood Culture - Preliminary No growth in 2 days 08/05/18 18:00 Blood - Peripheral Aerobic Blood Culture - Preliminary No growth in 2 days 08/05/18 18:00 Blood - Peripheral Anaerobic Blood Culture - Preliminary No growth in 2 days Imaging Imaging: Impressions Ureterogram 08/06/18 00:00 CONCLUSION: 1. Uncomplicated nephroureteral catheter exchange as above. 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 Right nephrostomy tube malfunction: -S/p right nephrostomy tube replacement by IR on 08/06 -Monitor output, functioning well Complicated UTI: Now with ESBL+ E.Coli -UA consistent with UTI -Blood cultures with NGTD -Preliminary urine culture with gram-negative rods -Previous cultures has shown susceptibility to Zosyn -Continue on IV Zosyn until culture and sensitivities resulted -Patient with mild fever T-max 100.2, continue to monitor, Tylenol prn -08/08 - Urine culture with ESBL+ E.Coli and Citrobacter, will consult ID for antibiotic recommendations, likely needs ertapenem Diabetes mellitus: -Continue home Levemir -Sliding-scale insulin -Monitor blood glucose -Episodes of hypoglycemia while n.p.o. or poor oral intake, continue fluids with D5 Hypertension: -Continue home clonidine and hydralazine Schizophrenia: -Continue Risperdal and sertraline Chronic kidney disease: Creatinine 1.56, baseline 0.9 -Continue IV fluid hydration -Monitor renal function -Repeat BMP ordered today, pending CVA: chronic with left sided hemiplegia and dysphagia -patient on pureed diet with nectar thickened liquids at SNF, per iron worker foreman , will continue -RN or CHILD CENTER ASSISTANT to assist with all feedings and HOB at >45 degrees -continue home meds DVT Prophylaxis: Teds/SCDs, holding pharmacologic anticoagulation due to procedure Discharge Planning: The patient is currently under hospice care at SNF, discussed with hospice nurse. Nephrostomy tube has been replaced, however still treating for complicated UTI now with ESBL positive. Infectious disease consultation pending. Progress Note: Quality VTE Deep Vein Thrombosis/Pulmonary Embolism Present on Admission: No
[2018-08-08] MEDS: Sertraline 50 MG Tablet PO SCH (09:09)
[2018-08-08] MEDS: Insulin NovoLOG Aspart Correctional Sugar Inj SQ SCH ×4 (09:09→23:15)
[2018-08-08] MEDS: Metoprolol Tartrate 25 MG Tablet PO SCH ×2 (09:09→23:13)
[2018-08-08] MEDS: Insulin Detemir Inj 1,000 UNIT/10 ML Vial SQ SCH ×2 (09:09→23:12)
[2018-08-08] MEDS ORDERED: ASP: Documented ESBL, MDR A baumannii or P. aeruginosa OTHER PRN (12:46)
--- NOTE | 2018-08-08 12:58 | P.CONID ---
History of Present Illness Primary Care Provider: UNKNOWN History of Present Illness: Patient seen and examined. Records reviewed. Patient is not able to give any history. Patient is a 63-year-old female, with known history of CVA, has aphasia and left -sided hemiplegia, brought into the hospital for further evaluation of her right nephrostomy tube. Patient apparently has been leaking around the site and it is unclear as to how long that has been going on. Her urinalysis on admission did show evidence of pyuria. Low-grade temps [address] of the abdomen and pelvis is showing significant hydronephrosis on the right side. Interventional radiology exchanged her right nephrostomy on August 06. The urine culture is growing E. coli ESBL positive as well as Citrobacter. Patient is afebrile. Her WBC on admission is normal. Her creatinine was up to 1.56 on admission. She is currently on Zosyn. Infectious disease consultation has been requested to assist with evaluation and treatment of UTI with E. coli ESBL positive. Review of Systems unobtainable due to mental status PMFSH - History History Provided By: Patient - Medical History Medical History: Medical History (Last Reviewed 08/08/18 @ 12:50 by Nicole Moctezuma MD) Anemia Atrial fibrillation CAD (coronary artery disease) CVA (cerebral vascular accident) Chronic kidney disease (CKD) Diabetes History of carotid stenosis History of cholelithiasis Hyperlipidemia Hypertension Neurogenic bladder Osteoarthritis Schizophrenia - Surgical History Surgical History: Surgical History (Last Reviewed 08/08/18 @ 12:50 by Nicole Moctezuma MD) Hip fracture requiring operative repair History of ankle surgery History of coronary artery stent placement History of tonsillectomy S/P percutaneous endoscopic gastrostomy (PEG) tube placement History of hysterectomy (Resolved) - Family History Family History: Family History (Last Reviewed 08/08/18 @ 12:50 by Nicole Moctezuma MD) Other Hypertension - Tobacco History Second Hand Smoke Exposure: No Smoking Status: Unknown if ever smoked Tobacco Type: Cigarettes - Alcohol History How Often Do You Have a Drink Containing Alcohol: Unable to Obtain - Substance Use History Substance History: Unable to Obtain - Travel History Recent Travel in the [place] Within the Last 8 Weeks: No Recent Travel Out of the Country Within the Last 8 Weeks: No - Immunization History Tetanus Immunization: <5 Years Medications and Allergies Active Medications: Active Medications Acetaminophen (Tylenol) 650 mg PO Q4H PRN PRN Reason: Temp > 100.4 Last Admin: 08/07/18 05:51 Dose: 650 mg Al Hydroxide/Mg Hydroxide (Milk Of Noemí Maharaj) 30 ml PO Q12H PRN PRN Reason: Mild Constipation Bisacodyl (Dulcolax Supp) 10 mg RECTAL DAILY PRN PRN Reason: SEVERE CONSITIPATION Clonidine HCl (Catapres) 0.1 mg PO Q8H PRN PRN Reason: SBP >160 or DPB >100 Dextrose (D50w Vial) 50 ml IV.PUSH UNSCH PRN PRN Reason: PER HYPOGLYCEMIA PROTOCOL Ertapenem (Invanz Inj) 1,000 mg IV.SIG Q24H [facility] Glucagon (Glucagon Inj) 1 mg OTHER PRN PRN PRN Reason: for Hypoglycemia Protocol Last Admin: 08/06/18 14:36 Dose: 1 mg Hydralazine HCl (Apresoline) 50 mg PO Q8HR [facility] Last Admin: 08/08/18 05:24 Dose: 50 mg Potassium Chloride/Dextrose/Sod Cl (D5w/1/2ns + Kcl 20 Meq Inj) 1,000 mls @ 100 mls/hr IV.CONT .Q10H [facility] Last Admin: 08/08/18 06:01 Dose: Not Given Insulin Aspart (Novolog Insulin Correctional Sugar Inj) 0 unit SQ ACHS [facility]; Protocol Last Admin: 08/08/18 09:09 Dose: Not Given Insulin Detemir (Levemir Inj) 5 unit SQ BID [facility] Last Admin: 08/08/18 09:09 Dose: 5 unit Isosorbide Dinitrate (Isordil) 20 mg PO Q8HR [facility] Last Admin: 08/08/18 05:24 Dose: 20 mg Lorazepam (Ativan) 0.5 mg PO Q4H PRN PRN Reason: Anxiety Methadone HCl (Dolophine) 5 mg PO Q8H [facility] Last Admin: 08/08/18 09:07 Dose: 5 mg Metoprolol Tartrate (Lopressor) 25 mg PO BID [facility] Last Admin: 08/08/18 09:09 Dose: 25 mg Miscellaneous Medication (Asp Crit: Doc Esbl, Mdr A Baumannii Or P Aer) 1 each OTHER UNSCH PRN PRN Reason: PHARMACY DOCUMENTATION Stop: 08/09/18 12:45 Ondansetron HCl (Zofran Inj) 4 mg IV.PUSH Q6H PRN PRN Reason: NAUSEA OR VOMITING Risperidone (Risperdal) 0.5 mg PO TID [facility] Last Admin: 08/08/18 09:07 Dose: 0.5 mg Sennosides (Senokot) 17.2 mg PO Q12H PRN PRN Reason: Moderate Constipation Sertraline HCl (Zoloft) 50 mg PO DAILY [facility] Last Admin: 08/08/18 09:09 Dose: 50 mg Sodium Chloride (Ns Flush) 2 ml IV.FLUSH BID [facility] Last Admin: 08/08/18 09:14 Dose: Not Given Sodium Chloride (Ns Flush) 2 ml IV.FLUSH PRN PRN PRN Reason: FLUSH AFTER USING IV ACCESS Allergies Allergy/AdvReac Type Severity Reaction Status Date / Time *MDRO Multi-Drug Resistant AdvReac Unknown Uncoded 11/10/17 06:21 Organism Home Medications Medication Instructions Recorded Confirmed Type clonidine HCl [Catapres] 0.1 mg FEEDING TUBE TID PRN 01/08/18 08/05/18 History isosorbide dinitrate 20 mg FEEDING TUBE Q8HR 01/08/18 08/05/18 History magnesium hydroxide [Milk of 30 ml FEEDING TUBE Q4HR PRN 01/08/18 08/05/18 History Magnesia] metoprolol tartrate 25 mg FEEDING TUBE BID 01/08/18 08/05/18 History multivitamin,[id number] 1 tab FEEDING TUBE DAILY 01/08/18 08/05/18 History [Thera-M] omeprazole 20 mg FEEDING TUBE DAILY 01/08/18 08/05/18 History risperidone [Risperdal] 0.5 mg FEEDING TUBE TID 01/08/18 08/05/18 History sennosides [senna] 8.6 mg FEEDING TUBE BID 01/08/18 08/05/18 History sertraline [Zoloft] 50 mg FEEDING TUBE DAILY 01/08/18 08/05/18 History aspirin [Aspirin Low Dose] 81 mg PO DAILY 08/05/18 08/05/18 History gabapentin 300 mg FEEDING TUBE TID 08/05/18 08/05/18 History gabapentin 300 mg PO DAILY 08/05/18 08/05/18 History gabapentin 400 mg PO BID 08/05/18 08/05/18 History insulin detemir U-100 [Levemir 5 unit SUBCUT BID 08/05/18 08/05/18 History U-100 Insulin] lorazepam 0.5 mg FEEDING TUBE Q4H PRN 08/05/18 08/05/18 History methadone 5 mg PO Q8H 08/05/18 08/05/18 History morphine concentrate 10 mg SUBLINGUAL Q3H PRN 08/05/18 08/05/18 History oxycodone-acetaminophen 1 tab PO Q4H PRN 08/05/18 08/05/18 History Exam Vital signs: Vital Signs 08/07/18 13:22 08/07/18 16:00 08/07/18 20:00 Temperature 99.1 F 99.8 F H 99.3 F Pulse Rate 52 L 51 L 57 L Respiratory Rate 18 16 16 Blood Pressure 126/59 L 158/72 H 171/82 H Pulse Oximetry 94 L 91 L 08/07/18 23:19 08/08/18 04:27 08/08/18 07:46 Temperature 99.1 F 98.9 F 99.1 F Pulse Rate 61 55 L 56 L Respiratory Rate 16 16 19 Blood Pressure 122/59 L 156/74 H 147/72 H Pulse Oximetry 90 L 94 L 95 08/08/18 12:10 Temperature 99 F Pulse Rate 57 L Respiratory Rate 18 Blood Pressure 177/88 H Pulse Oximetry 95 Intake & Output 08/07/18 08/08/18 08/08/18 18:59 06:59 18:59 Intake Total 1100 / 1100 1100 / 1100 Output Total 1000 / 1000 650 / 650 550 / 550 Balance 100 / 100 450 / 450 -550 / -550 Intake: IV 1100 / 1100 1100 / 1100 D5W/1/2NS + KCL 20 mEq Inj 1, 1000 / 1000 1000 / 1000 000 ML @ 100 mls/hr IV.CONT . Q10H [facility] Rx#:[id number] Zosyn 2.25 GM Premix 2.25 gm In 100 / 100 100 / 100 50 ml @ 100 mls/hr IV.SIG Q6H [facility] Rx#:[id number] Output: Urine 1000 / 1000 650 / 650 550 / 550 Other: Date of Last Bowel Movement 07/07/18 08/08/18 # Bowel Movements 1 1 # Incontinent Bowel Movements 1 Narrative: Physical examination GENERAL: Patient is a well-nourished, well-developed female, awake and alert , not in respiratory distress. She leans her head to left. She is following commands SKIN: Cool and dry. No generalized rash, no ecchymoses and no evidence of embolic lesions. HEAD: Atraumatic. Normocephalic. No temporal wasting, or tenderness. EYES: [place] conjunctiva. No petechia or hemorrhage. Pupils equal, round and reactive to light. No scleral icterus. No injection or drainage. Has opacity in R eye EARS, NOSE AND THROAT: Nose without bleeding or purulent nasal discharge. Mucous membranes pink and moist. Has poor dentition. Did not open mouth to do exam of oropharynx NECK: Trachea midline. Supple and not tender, no meningeal signs CARDIOVASCULAR: Regular rate and rhythm. No murmurs, rubs or gallops heard RESPIRATORY: Clear to auscultation. Breath sounds equal bilaterally. No rales , wheezing or rhonchi ABDOMEN: Distended, healed previous PEG site, gets agitated during palpation. BACK: R nephrostomy in place, urine looks clear EXTREMITIES: No clubbing, cyanosis. Both feet plantar flexed, with some mild pedal edema. NEUROLOGICAL: Awake and alert. Decreased nasolabial fold on left. Spastic in LUE; no movement in LLE. PSYCHIATRIC: Awake, gets agitated easily LINE: No evidence of infection Results - Labs CBC & Chem 7: 08/05/18 18:00 08/05/18 19:10 Labs: Laboratory Results - last 24 hr 08/07/18 08/07/18 08/07/18 13:36 18:22 22:20 POC Glucose 108 97 152 H 08/08/18 09:06 POC Glucose 77 - Imaging Impressions Ureterogram 08/06/18 00:00 CONCLUSION: 1. Uncomplicated nephroureteral catheter exchange as above. Chest X-Ray 08/05/18 17:53 CONCLUSION: No obvious airspace disease. Abdomen/Pelvis CT 08/05/18 19:35 CONCLUSION: 1. Severe right hydronephrosis with percutaneous nephrostomy tube and nephroureteral stents in place. 2. Numerous right renal calculi, as well as bladder calculus and possible calcifications along the course of the nephroureteral stent. Assessment and Plan - Plan Impression Complicated UTI, has R nephrouereteral stent and nephrostomy - UC E coli ESBL and Citrobacter Sepsis due to above Renal insufficiency Hx CVA with L sided weakness and aphasia Recommendation Repeat UA and C/S from nephrostomy Renal US to reasess the hydronephrosis IV Invanz BC if temps up again Repeat labs - CBC and BMP Consider urology evaluation if still with hydronephrosis Give 14 days IV Invanz Follow temps Monitor progress I will follow along with you Thank you for this consultation
[2018-08-08] MEDS ORDERED: Morphine Sulfate Inj 2 MG/ML Vial IM PRN (13:31)
[2018-08-08] MEDS: LORazepam 0.5 MG Tablet PO PRN (13:32)
[2018-08-08] MEDS ORDERED: Acetaminophen 325 MG Tablet PO PRN (13:34)
[2018-08-08 13:57] LABS: Bacteria,Urine Occasional /hpf; Bilirubin,Urine Negative (Negative); Clarity,Urine Hazy (Clear); Color,Urine Yellow (Yellw/Straw); Glucose,Urine (UA) Negative (Negative); Leukocyte Esterase,Urine Large (Negative); Mucus,Urine Few /lpf (Occasional); Nitrite,Urine Negative (Negative); Squamous Epithelial Cell,Urine <1 /hpf (0-5)
--- NOTE | 2018-08-08 19:04 | US ---
EXAM DATE: 08/08/2018 6:48 PM EST AGE/SEX: 63 years / Female INDICATIONS: Severe right hydronephrosis. CLINICAL DATA: This is the patient's initial encounter. Patient reports that signs and symptoms have been present for 1 day and indicates a pain score of 0/10. MEDICAL/SURGICAL HISTORY: Anemia. Diabetes. Carotid stenosis. Afib. CAD. CKD. CVA. Cholelith iasis. Hyperlipidemia. HTN. Neurogenic bladder. Schizophrenia. Nephrostomy tube. Hysterectomy. Tons illectomy. Cardiac cath with stent placement. PEG tube placement. Ankle surgery. Hip fracture repair. COMPARISON: [facility] [place], CT ABDOMEN & PELVIS W/O CONTRAST, 08/05/2018. . MEASUREMENTS: Right Kidney:__11.4 x 5.9 x Left Kidney:__. Not visualized. FINDINGS: Right Kidney: Multiple right-sided renal calculi. Right-sided ureteral stent present. Left Kidney: Not visualized. Bladder: Decompressed. Not well evaluated. Other: None. CONCLUSION: 1. Right-sided ureteral stent with multiple right-sided renal calculi as seen on recent CT. Mild hyd ronephrosis on the right. Left kidney not visualized. Electronically signed by: Pascual Jennings MD Board Certified Radiologist 08/08/2018 7:02 PM EST
[2018-08-09] MEDS: hydrALAZINE 50 MG Tablet PO SCH ×3 (06:21→23:42)
[2018-08-09] MEDS: Methadone 10 MG Tablet PO SCH ×3 (06:47→23:41)
[2018-08-09] MEDS: KCL 20 mEq/D5W/NaCl 0.45% Inj 1,000 ML IV.CONT SCH ×3 (08:26→20:13)
[2018-08-09] MEDS: Insulin Detemir Inj 1,000 UNIT/10 ML Vial SQ SCH (10:19)
[2018-08-09] MEDS: Sertraline 50 MG Tablet PO SCH (10:21)
[2018-08-09] MEDS: Metoprolol Tartrate 25 MG Tablet PO SCH ×2 (10:21→20:13)
[2018-08-09] MEDS: LORazepam 0.5 MG Tablet PO PRN ×2 (10:30→20:13)
--- NOTE | 2018-08-09 11:35 | P.PNIM ---
Subjective Interval history: Patient wants help with eating her food. She reports no pain. Physical Exam Vital signs: Vital Signs 08/08/18 12:10 08/08/18 16:26 08/08/18 18:41 Temperature 99 F 98.8 F 97.6 F Pulse Rate 57 L 55 L 49 L Respiratory Rate 18 17 Blood Pressure 177/88 H 114/60 138/65 Pulse Oximetry 95 93 L 94 L 08/08/18 20:00 08/09/18 00:00 08/09/18 01:12 Temperature 97.6 F 97.9 F Pulse Rate 56 L 56 L Respiratory Rate 18 17 18 Blood Pressure 134/63 158/72 H Pulse Oximetry 95 96 08/09/18 06:28 08/09/18 08:00 Temperature 97 F L Pulse Rate 62 Respiratory Rate 16 Blood Pressure 167/74 H 135/65 Pulse Oximetry 96 Intake & Output 08/08/18 08/09/18 08/09/18 18:59 06:59 18:59 Intake Total 1000 / 1000 460 / 460 1000 / 1000 Output Total 550 / 550 1450 / 1450 Balance 450 / 450 -990 / -990 1000 / 1000 Weight 86 kg Intake: IV 1000 / 1000 100 / 100 1000 / 1000 D5W/1/2NS + KCL 20 mEq Inj 1, 1000 / 1000 1000 / 1000 000 ML @ 100 mls/hr IV.CONT . Q10H [facility] Rx#:[id number] INVanz Inj 1,000 MG In NS Inj 100 / 100 100 ML @ 200 mls/hr IV.SIG Q24H [facility] Rx#:[id number] Oral 360 / 360 Output: Urine 550 / 550 Urine Amount (Stoma) 1450 / 1450 Nephrostomy Tube Right 1450 / 1450 Other: Date of Last Bowel Movement 08/08/18 08/08/18 # Bowel Movements 1 1 # Incontinent Bowel Movements 1 Narrative: GENERAL: Chronically ill-appearing middle-aged female patient in NAD laying in bed. Generalized weakness. CARDIOVASCULAR: Regular rate and rhythm. No murmur appreciated. RESPIRATORY: No accessory muscle use. Clear to auscultation. Breath sounds equal bilaterally. GASTROINTESTINAL: Abdomen soft, non-tender, nondistended. Normoactive bowel sounds x4. Old PEG tube site closed without any drainage. Bandage over the area MUSCULOSKELETAL: No obvious deformities. Extremities without clubbing, cyanosis , or edema. Nephrostomy tube in place, covered with dressing. NEUROLOGICAL: Awake and alert, oriented to self only. Left-sided hemiplegia with left upper extremity contracture. Slurred speech, however mostly able to understand, answer simple questions, follows commands. Was able to hold her spoon with the right hand Results Labs CBC & Chem 7: 08/05/18 18:00 08/05/18 19:10 Labs: Microbiology 08/05/18 17:55 Blood - Peripheral Aerobic Blood Culture - Preliminary No growth in 4 days 08/05/18 17:55 Blood - Peripheral Anaerobic Blood Culture - Preliminary No growth in 4 days 08/05/18 18:00 Blood - Peripheral Aerobic Blood Culture - Preliminary No growth in 4 days 08/05/18 18:00 Blood - Peripheral Anaerobic Blood Culture - Preliminary No growth in 4 days 08/05/18 18:16 Random Urine Urine Culture - Final Escherichia coli ESBL positive Citrobacter koseri 08/05/18 18:16 Catheterized Urine Urine Culture - Final Escherichia coli ESBL positive Citrobacter koseri Imaging Imaging: Impressions Abdomen/Bladder Ultrasound 08/08/18 00:00 CONCLUSION: 1. Right-sided ureteral stent with multiple right-sided renal calculi as seen on recent CT. Mild hydronephrosis on the right. Left kidney not visualized. Assessment and Plan Plan 63-year-old female under hospice with a past medical history of CVA with expressive aphasia and left-sided hemiplegia, neurogenic bladder, recurrent UTIs , nephrostomy tube, PEG tube, CKD stage III, anemia, diabetes and hypertension presents to the emergency department from [facility] for evaluation of nephrostomy tube. Right nephrostomy tube malfunction: -S/p right nephrostomy tube replacement by IR on 08/06 -Monitor output, functioning well Complicated UTI: Now with ESBL+ E.Coli -Blood cultures with NGTD -08/08 - Urine culture with ESBL+ E.Coli and Citrobacter, appreciate IDs recommendations, will continue with IV Invanz Repeat urine cultures currently pending, likely will need a total of 14 days of antibiotics. Diabetes mellitus, insulin-dependent overall controlled: -Continue monitor blood sugar with sliding-scale insulin -Monitor blood glucose -Episodes of hypoglycemia while n.p.o. or poor oral intake, continue fluids with D5, will hold Levemir and monitor blood sugar Hypertension, overall controlled: -Continue home clonidine and hydralazine Schizophrenia: -Continue Risperdal and sertraline Chronic kidney disease 3: -Continue IV fluid hydration Avoid nephrotoxins and repeat levels in the morning. CVA: chronic with left sided hemiplegia and dysphagia -patient on pureed diet with nectar thickened liquids at SNF, per emergency medical dispatcher , will continue -RN or CANDY ROLLER to assist with all feedings and HOB at >45 degrees -continue home meds DVT Prophylaxis: Teds/SCDs, subcu Discharge Planning: The patient is currently under hospice care at [facility], Nephrostomy tube has been replaced, however still treating for complicated UTI now with ESBL positive. Will need IV Invanz for total 14 days Progress Note: Quality VTE Deep Vein Thrombosis/Pulmonary Embolism Present on Admission: No
[2018-08-09] MEDS: Insulin NovoLOG Aspart Correctional Sugar Inj SQ SCH ×4 (11:46→23:42)
[2018-08-09 17:26] LABS: Baso % (Auto) 0.7 % (0.0-2.0); Eos # (Auto) 0.6 th/mm3 (0.0-0.4); Eos % (Auto) 10.7 % (0.0-4.0); Hematocrit 30.9 % (35.0-46.0); Lymph # (Auto) 0.8 th/mm3 (1.0-4.8); Lymph % (Auto) 13.8 % (9.0-44.0); Mean Corpuscular HGB Conc 32.2 % (32.0-36.0); Mean Corpuscular Hemoglobin 25.8 pg (27.0-34.0); Mean Corpuscular Volume 80.1 fL (80.0-100.0); Mean Platelet Volume 9.2 fL (7.0-11.0); Mono # (Auto) 0.3 th/mm3 (0.0-0.9); Mono % (Auto) 5.4 % (0.0-8.0); Neut # (Auto) 3.9 th/mm3 (1.8-7.7); Neut % (Auto) 69.4 % (16.0-70.0); Platelet Count 150 th/mm3 (150-450); Red Blood Count 3.86 mil/mm3 (4.00-5.30); Red Cell Distribution Width 15.9 % (11.6-17.2); White Blood Count 5.7 th/mm3 (4.0-11.0)
[2018-08-09 17:56] LABS: Calcium 8.1 mg/dL (8.5-10.1); Carbon Dioxide 25.6 meq/L (21.0-32.0); Potassium 3.6 meq/L (3.5-5.1)
[2018-08-10] MEDS: Methadone 10 MG Tablet PO SCH ×3 (06:19→22:38)
[2018-08-10] MEDS: hydrALAZINE 50 MG Tablet PO SCH ×3 (06:19→20:59)
[2018-08-10] MEDS: KCL 20 mEq/D5W/NaCl 0.45% Inj 1,000 ML IV.CONT SCH ×2 (06:20→15:11)
[2018-08-10] MEDS: Insulin NovoLOG Aspart Correctional Sugar Inj SQ SCH ×4 (08:03→20:55)
[2018-08-10] MEDS: Metoprolol Tartrate 25 MG Tablet PO SCH ×2 (08:29→20:53)
[2018-08-10] MEDS: Sertraline 50 MG Tablet PO SCH (08:29)
--- NOTE | 2018-08-10 12:14 | P.PNIM ---
Subjective Interval history: Reports some mild abdominal discomfort. No fevers or chills. Physical Exam Vital signs: Vital Signs 08/09/18 15:50 08/09/18 16:00 08/09/18 20:00 Temperature 97.2 F L 98.3 F Pulse Rate 61 58 L Respiratory Rate 17 16 18 Blood Pressure 135/68 169/76 H Pulse Oximetry 99 95 08/10/18 00:00 08/10/18 01:27 08/10/18 06:56 Temperature 98.6 F Pulse Rate 60 Respiratory Rate 16 20 22 Blood Pressure 143/69 H Pulse Oximetry 95 08/10/18 08:00 Temperature 97.5 F L Pulse Rate 58 L Respiratory Rate 22 Blood Pressure 117/55 L Pulse Oximetry 16 L Intake & Output 08/09/18 08/10/18 08/10/18 18:59 06:59 18:59 Intake Total 2029 / 2029 1390 / 1390 Output Total 700 / 700 1000 / 1000 Balance 1330 / 1330 390 / 390 Weight 84.6 kg Intake: IV 1950 / 1949 1150 / 1150 D5W/1/2NS + KCL 20 mEq Inj 1, 1850 / 1850 1150 / 1150 000 ML @ 100 mls/hr IV.CONT . Q10H [facility] Rx#:[id number] INVanz Inj 1,000 MG In NS Inj 100 / 100 100 ML @ 200 mls/hr IV.SIG Q24H [facility] Rx#:[id number] Oral 80 / 80 240 / 240 Output: Urine 200 / 200 1000 / 1000 Urine Amount (Stoma) 500 / 500 Nephrostomy Tube Right 500 / 500 Other: Date of Last Bowel Movement 08/09/18 08/09/18 # Bowel Movements 2 Narrative: GENERAL: Chronically ill-appearing middle-aged female patient in NAD laying in bed. Generalized weakness. CARDIOVASCULAR: Regular rate and rhythm. No murmur appreciated. RESPIRATORY: No accessory muscle use. Clear to auscultation. Breath sounds equal bilaterally. GASTROINTESTINAL: Abdomen soft, non-tender, mild distention, few bowel sounds. Old PEG tube site closed without any drainage. Bandage over the area MUSCULOSKELETAL: No obvious deformities. Extremities without clubbing, cyanosis , or edema. Nephrostomy tube in place, covered with dressing. NEUROLOGICAL: Awake and alert, oriented to self only. Left-sided hemiplegia with left upper extremity contracture unchanged. Slurred speech, however mostly able to understand, answer simple questions, follows commands. 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 Right nephrostomy tube malfunction: -S/p right nephrostomy tube replacement by IR on 08/06 -Monitor output, functioning well Complicated UTI: Now with ESBL+ E.Coli -Blood cultures with NGTD -08/08 - Urine culture with ESBL+ E.Coli and Citrobacter, appreciate IDs recommendations, will continue with IV Invanz Repeat urine cultures currently shows gram-negative rods, due to continued growth will repeat another urine culture likely will need a total of 14 days of antibiotics, will defer to infectious disease. Diabetes mellitus, insulin-dependent overall controlled: -Continue monitor blood sugar with sliding-scale insulin -Monitor blood glucose -Episodes of hypoglycemia while n.p.o. or poor oral intake, continue fluids with D5, will hold Levemir and monitor blood sugar Hypertension, overall controlled: -Continue home clonidine and hydralazine Schizophrenia: -Continue Risperdal and sertraline Chronic kidney disease 3: -Continue IV fluid hydration Avoid nephrotoxins and repeat levels in the morning. CVA: chronic with left sided hemiplegia and dysphagia -patient on pureed diet with nectar thickened liquids at [facility], per manager radio , will continue -RN or [employer] to assist with all feedings and HOB at >45 degrees -continue home meds DVT Prophylaxis: Teds/SCDs, subcu Discharge Planning: The patient is currently under hospice care at SNF, Nephrostomy tube has been replaced, however still treating for complicated UTI now with ESBL positive. Will need likely IV Invanz for total 14 days, await final recommendations from infectious disease. Progress Note: Quality VTE Deep Vein Thrombosis/Pulmonary Embolism Present on Admission: No
[2018-08-10] MEDS: LORazepam 0.5 MG Tablet PO PRN (20:53)
[2018-08-11] MEDS: KCL 20 mEq/D5W/NaCl 0.45% Inj 1,000 ML IV.CONT SCH ×3 (01:32→21:16)
[2018-08-11] MEDS: hydrALAZINE 50 MG Tablet PO SCH ×3 (06:19→21:15)
[2018-08-11] MEDS: Methadone 10 MG Tablet PO SCH ×2 (06:20→16:52)
[2018-08-11] MEDS: Sertraline 50 MG Tablet PO SCH (09:50)
[2018-08-11] MEDS: Metoprolol Tartrate 25 MG Tablet PO SCH ×2 (09:50→21:14)
[2018-08-11] MEDS: Insulin NovoLOG Aspart Correctional Sugar Inj SQ SCH ×4 (09:50→21:15)
--- NOTE | 2018-08-11 10:40 | P.PNIM ---
Subjective Interval history: Assumed patient care today 08/11/18. nurse brought to my attention patient has a rash on the chest under the contracted arm. Patient has no complaints. when asked if in pain she says no. Physical Exam Vital signs: Vital Signs 08/10/18 12:00 08/10/18 16:00 08/10/18 20:00 Temperature 97.5 F L 97.2 F L 98.5 F Pulse Rate 57 L 53 L 52 L Respiratory Rate 16 16 16 Blood Pressure 171/76 H 194/84 H 128/61 Pulse Oximetry 97 99 94 L 08/10/18 20:30 08/10/18 23:07 08/11/18 00:00 Temperature 98.3 F Pulse Rate 57 L Respiratory Rate 22 20 18 Blood Pressure 154/67 H Pulse Oximetry 94 L 08/11/18 07:02 08/11/18 08:00 Temperature 98.3 F Pulse Rate 96 H Respiratory Rate 21 18 Blood Pressure 125/70 Pulse Oximetry 97 Intake & Output 08/10/18 08/11/18 08/11/18 18:59 06:59 18:59 Intake Total 1320 / 1320 1240 / 1240 Output Total 350 / 350 1000 / 1000 Balance 970 / 970 240 / 240 Weight 84.1 kg Intake: IV 1100 / 1100 1000 / 1000 D5W/1/2NS + KCL 20 mEq Inj 1, 1000 / 1000 1000 / 1000 000 ML @ 100 mls/hr IV.CONT . Q10H [facility] Rx#:[id number] INVanz Inj 1,000 MG In NS Inj 100 / 100 100 ML @ 200 mls/hr IV.SIG Q24H [facility] Rx#:[id number] Oral 240 / 240 Tube Feeding 220 / 220 Output: Urine 1000 / 1000 Urine Amount (Stoma) 350 / 350 Nephrostomy Tube Right 350 / 350 Other: Date of Last Bowel Movement 08/09/18 Narrative: GENERAL: Chronically ill-appearing middle-aged female patient in NAD laying in bed. Generalized weakness. HEENT:not pale,anicteric, edentulous CARDIOVASCULAR: Regular rate and rhythm.s1s2 normal, no murmurs. RESPIRATORY: No accessory muscle use. Clear to auscultation. Breath sounds equal bilaterally. GASTROINTESTINAL: Abdomen soft, non-tender, mild distention, few bowel sounds. Old PEG tube site closed without any drainage. Bandage over the area. Nephrostomy tube in place,draining straw colored, covered with dressing. MUSCULOSKELETAL: No obvious deformities. Extremities without clubbing, cyanosis , or edema. NEUROLOGICAL: Awake and alert, oriented to self only. Left-sided hemiplegia with left upper extremity contracture unchanged. Slurred speech, however mostly able to understand, answer simple questions, follows commands. SKIN:erythematous rash on anterior and lateral aspect of lt chest wall under contracted arm. Results Labs CBC & Chem 7: 08/09/18 17:06 08/09/18 17:06 Labs: Microbiology 08/08/18 13:11 Random Urine Urine Culture - Preliminary Pseudomonas aeruginosa Multidrug Resistant Citrobacter koseri 08/05/18 17:55 Blood - Peripheral Aerobic Blood Culture - Final No growth in 5 days 08/05/18 17:55 Blood - Peripheral Anaerobic Blood Culture - Final No growth in 5 days 08/05/18 18:00 Blood - Peripheral Aerobic Blood Culture - Final No growth in 5 days 08/05/18 18:00 Blood - Peripheral Anaerobic Blood Culture - Final No growth in 5 days Assessment and Plan Plan 63-year-old female under hospice with a past medical history of CVA with expressive aphasia and left-sided hemiplegia, neurogenic bladder, recurrent UTIs , nephrostomy tube, PEG tube, CKD stage III, anemia, diabetes and hypertension presents to the emergency department from [facility] for evaluation of nephrostomy tube. Right nephrostomy tube malfunction: -S/p right nephrostomy tube replacement by IR on 08/06,now functioning well. Complicated UTI: Now with ESBL+ E.Coli -Blood cultures with NGTD -08/08 - Urine culture with ESBL+ E.Coli and Citrobacter, appreciate IDs recommendations, continue IV Ertapenem(Invanz) for total of 14 days. repeat culture pending. Diabetes mellitus, insulin-dependent: blood glucose controlled. -Continue monitor blood sugar with sliding-scale insulin -Episodes of hypoglycemia while n.p.o. or poor oral intake, continue fluids with D5, will hold Levemir and monitor blood sugar Hypertension, overall controlled: -Continue home clonidine and hydralazine Schizophrenia: -Continue Risperdal and sertraline Chronic kidney disease 3: -Continue IV fluid hydration Avoid nephrotoxins and repeat levels in the morning. CVA: chronic with left sided hemiplegia and dysphagia -patient on pureed diet with nectar thickened liquids at SNF, per bulb inspector, will continue -RN or RN NIGHT to assist with all feedings and HOB at >45 degrees -continue home meds DVT Prophylaxis: Teds/SCDs, subcu Discharge Planning: The patient is currently under hospice care at SNF, Nephrostomy tube has been replaced, however still treating for complicated UTI now with ESBL positive. Progress Note: Quality VTE Deep Vein Thrombosis/Pulmonary Embolism Present on Admission: No
--- NOTE | 2018-08-11 12:40 | P.PNID ---
Subjective Remarks: Patient is a 63-year-old female, with known history of CVA, has aphasia and left -sided hemiplegia, brought into the hospital for further evaluation of her right nephrostomy tube. Patient apparently has been leaking around the site and it is unclear as to how long that has been going on. Her urinalysis on admission did show evidence of pyuria. Low-grade temps [address] of the abdomen and pelvis is showing significant hydronephrosis on the right side. Interventional radiology exchanged her right nephrostomy on August 06. The urine culture is growing E. coli ESBL positive as well as Citrobacter. Patient is afebrile. Her WBC on admission is normal. Her creatinine was up to 1.56 on admission. She is currently on Zosyn. Infectious disease consultation has been requested to assist with evaluation and treatment of UTI with E. coli ESBL positive. Notes reviewed Afebrile Creatinine better Last UC with MDR PSAE and Citrobacter Repeat US with renal calculi and mild hydro on R; L kidney not visualized Repeat UA, pyuria is better Antibiotics: Invanz Past Medical History: Anemia Atrial fibrillation CAD (coronary artery disease) CVA (cerebral vascular accident) Chronic kidney disease (CKD) Diabetes History of carotid stenosis History of cholelithiasis Hyperlipidemia Hypertension Neurogenic bladder Osteoarthritis Schizophrenia Hip fracture requiring operative repair History of ankle surgery History of coronary artery stent placement History of tonsillectomy S/P percutaneous endoscopic gastrostomy (PEG) tube placement History of hysterectomy (Resolved) Allergies/Adverse Reactions: Allergies *MDRO Multi-Drug Resistant Organism Adverse Reaction (Unknown, Uncoded 11/10/17 06:21) 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 ESBL + E. 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 Objective Vital Signs 08/10/18 16:00 08/10/18 20:00 08/10/18 20:30 Temperature 97.2 F L 98.5 F Pulse Rate 53 L 52 L Respiratory Rate 16 16 22 Blood Pressure 194/84 H 128/61 Pulse Oximetry 99 94 L 08/10/18 23:07 08/11/18 00:00 08/11/18 07:02 Temperature 98.3 F Pulse Rate 57 L Respiratory Rate 20 18 21 Blood Pressure 154/67 H Pulse Oximetry 94 L 08/11/18 08:00 Temperature 98.3 F Pulse Rate 96 H Respiratory Rate 18 Blood Pressure 125/70 Pulse Oximetry 97 Intake & Output 08/10/18 08/11/18 08/11/18 18:59 06:59 18:59 Intake Total 1320 / 1320 1240 / 1240 Output Total 350 / 350 1000 / 1000 Balance 970 / 970 240 / 240 Weight 84.1 kg Intake: IV 1100 / 1100 1000 / 1000 D5W/1/2NS + KCL 20 mEq Inj 1, 1000 / 1000 1000 / 1000 000 ML @ 100 mls/hr IV.CONT . Q10H [facility] Rx#:[id number] INVanz Inj 1,000 MG In NS Inj 100 / 100 100 ML @ 200 mls/hr IV.SIG Q24H [facility] Rx#:[id number] Oral 240 / 240 Tube Feeding 220 / 220 Output: Urine 1000 / 1000 Urine Amount (Stoma) 350 / 350 Nephrostomy Tube Right 350 / 350 Other: Date of Last Bowel Movement 08/09/18 08/08/18 13:11 Random Urine Urine Culture - Final Pseudomonas aeruginosa Multidrug Resistant Citrobacter koseri 08/05/18 18:16 Catheterized Urine Urine Culture - Preliminary Escherichia coli ESBL positive Citrobacter koseri Pseudomonas species 08/05/18 18:16 Random Urine Urine Culture - Preliminary Escherichia coli ESBL positive Citrobacter koseri Pseudomonas species 08/10/18 13:10 Clean Catch Urine Urine Culture - Pending 08/05/18 17:55 Blood - Peripheral Aerobic Blood Culture - Final No growth in 5 days 08/05/18 17:55 Blood - Peripheral Anaerobic Blood Culture - Final No growth in 5 days 08/05/18 18:00 Blood - Peripheral Aerobic Blood Culture - Final No growth in 5 days 08/05/18 18:00 Blood - Peripheral Anaerobic Blood Culture - Final No growth in 5 days Lab - Hematology Results 08/09/18 17:06 WBC 5.7 RBC 3.86 L Hgb 10.0 L Hct 30.9 L MCV 80.1 MCH 25.8 L MCHC 32.2 RDW 15.9 Plt Count 150 MPV 9.2 Neut % (Auto) 69.4 Lymph % (Auto) 13.8 [place] % (Auto) 5.4 Eos % (Auto) 10.7 H Baso % (Auto) 0.7 Neut # (Auto) 3.9 Lymph # (Auto) 0.8 L [place] # (Auto) 0.3 Eos # (Auto) 0.6 H Baso # (Auto) 0.0 WBC Differential . Differential Comment Auto diff final Lab - Chemistry Results 08/09/18 08/09/18 08/09/18 16:34 17:06 20:05 Sodium 141 Potassium 3.6 Chloride 109 H Carbon Dioxide 25.6 Anion Gap 6 BUN 14 Creatinine 1.25 H Estimated GFR 43 L POC Glucose 93 89 Random Glucose 91 Calcium 8.1 L 08/10/18 08/10/18 08/10/18 07:38 12:05 16:46 Sodium Potassium Chloride Carbon Dioxide Anion Gap BUN Creatinine Estimated GFR POC Glucose 84 101 117 H Random Glucose Calcium 08/10/18 08/11/18 08/11/18 20:55 08:08 11:40 Sodium Potassium Chloride Carbon Dioxide Anion Gap BUN Creatinine Estimated GFR POC Glucose 114 H 94 86 Random Glucose Calcium 08/11/18 12:10 Sodium Potassium Chloride Carbon Dioxide Anion Gap BUN Creatinine Estimated GFR POC Glucose 92 Random Glucose Calcium Imaging: ITS Impressions Chest X-Ray 08/05/18 17:53 CONCLUSION: No obvious airspace disease. Abdomen/Pelvis CT 08/05/18 19:35 CONCLUSION: 1. Severe right hydronephrosis with percutaneous nephrostomy tube and nephroureteral stents in place. 2. Numerous right renal calculi, as well as bladder calculus and possible calcifications along the course of the nephroureteral stent. Ureterogram 08/06/18 00:00 CONCLUSION: 1. Uncomplicated nephroureteral catheter exchange as above. Abdomen/Bladder Ultrasound 08/08/18 00:00 CONCLUSION: 1. Right-sided ureteral stent with multiple right-sided renal calculi as seen on recent CT. Mild hydronephrosis on the right. Left kidney not visualized. Physical Exam: GENERAL: awake and alert, not in respiratory distress. She is following commands, answering some questions SKIN: Cool and dry. No generalized rash HEAD: Atraumatic. Normocephalic. No temporal wasting, or tenderness. EYES: [place] conjunctiva. No petechia or hemorrhage. No scleral icterus. No injection or drainage. Has opacity in R eye EARS, NOSE AND THROAT: Nose without bleeding or purulent nasal discharge. Mucous membranes pink and moist. Has poor dentition. Did not open mouth to do exam of oropharynx NECK: Trachea midline. Supple and not tender, no meningeal signs CARDIOVASCULAR: Regular rate and rhythm. No murmurs, rubs or gallops heard RESPIRATORY: Clear to auscultation. Breath sounds equal bilaterally. No rales , wheezing or rhonchi ABDOMEN: Distended, healed previous PEG site, gets agitated during palpation. BACK: R nephrostomy in place, urine with some sediment EXTREMITIES: No clubbing, cyanosis. Both feet plantar flexed, with some mild pedal edema. NEUROLOGICAL: Awake and alert. Decreased nasolabial fold on left. Spastic in LUE; no movement in LLE. PSYCHIATRIC: Awake, calm LINE: No evidence of infection Assessment and Plan - Plan Impression Complicated UTI, has R nephrouereteral stent and nephrostomy - UC E coli ESBL and Citrobacter - initially with severe hydro on CT; US with mild hydro, has R kidney stones - repeat UC with MDR PSAE, Citrobacter Sepsis due to above Renal insufficiency Hx CVA with L sided weakness and aphasia Recommendation Follow repeat UC Change to IV Zosyn Stop Invanz Get urology opinion regarding persistent hydro in presence of stones Monitor progress
[2018-08-11] MEDS: Piperacil/Tazo 4.5 GM Premix 4.5 GM/100 ML BAG IV.SIG SCH ×2 (15:15→21:13)
--- NOTE | 2018-08-11 19:07 | MB ---
cc: Cain Benton DO DATE: 08/11/2018 HISTORY OF PRESENT ILLNESS: The patient is a pleasant 63-year-old female with a history of a right percutaneous nephrostomy tube. She has a history of stones on the right side and an atrophic left kidney. She presented to the emergency room and a CAT scan demonstrated a large bladder calculus and encrusting the stent within the bladder, with hydronephrosis. Interventional radiology was then consulted and her nephroureteral stent was changed out. Along the side of that, however, she has a ureteral stent placed by a urologist in the past, unknown to myself. This has encrustation resulting in the large bladder calculus and some stone on it within the kidney itself. She has had positive urine cultures, which is expected in this situation, and is currently on antibiotics. She had a recent renal ultrasound demonstrating hydronephrosis, but her creatinine has been improving. On admission, it was 1.56 and on 08/09/2018 it went down to 1.25. She has been afebrile. PAST MEDICAL HISTORY: Includes anemia, atrial fibrillation, coronary artery disease, prior CVA, chronic kidney disease, diabetes, carotid stenosis, cholelithiasis, hyperlipidemia, hypertension, neurogenic bladder, osteoarthritis, schizophrenia. PAST SURGICAL HISTORY: Noted for ankle surgery, hip fracture with repair, tonsillectomy, coronary stent placement, percutaneous nephrostomy tube, ureteral stent insertion, PEG tube, hysterectomy. FAMILY HISTORY: Negative for hypertension. SOCIAL HISTORY: Never smoked. Prior drinker in the past, but only on social occasions. No history of substance abuse. MEDICATIONS: Please refer to the chart. ALLERGIES: Please refer to the chart. PHYSICAL EXAMINATION: VITAL SIGNS: Temperature 98.5, heart rate 52, respiratory rate 16, blood pressure 128/61, 94% on room air. GENERAL: She is a well-developed, well-nourished, 63-year-old female in no acute distress. HEENT: Normocephalic, atraumatic. Pupils equal, round, regular and reactive to light. Extraocular movements intact. NECK: Supple. HEART: Regular rate and rhythm. LUNGS: Clear bilaterally. ABDOMEN: Soft, nontender, nondistended. : Right percutaneous nephrostomy tube draining clear urine. Normal female external genitalia. EXTREMITIES: Show no evidence of cyanosis or edema. LABORATORY DATA: White count 5.7, hemoglobin 10.0, hematocrit 30.9, platelet count of 150. Sodium 141, potassium 3.6, chloride 100, CO2 25.6, BUN of 14, creatinine 1.25, glucose of 114. PT 10.2, INR 1.0, PTT 33.6. CT scan showed an encrusted stent with a bladder calculus and stones within the kidney and around the stent. ASSESSMENT AND PLAN: A 63-year-old female with solitary functioning right kidney with encrusted ureteral stent with bladder calculus, with recently changed right nephroureteral stent with percutaneous nephrostomy tube. Recommend repeat CAT scan to evaluate hydronephrosis. The patient would benefit with removal of the ureteral stent as it is calcified and is the probable cause of recurrent infections due to stone encrustation. This would need to be done once the infections have been cleared in the future. We will repeat ____ CAT scan and make recommendations at that time. Thank you for the consult and allowing me to participate in the care of this patient. DO DIMITRI Escamilla/latasha , 04:44 PM , 04:53 PM
[2018-08-11] MEDS: LORazepam 0.5 MG Tablet PO PRN (21:14)
[2018-08-12] MEDS: Methadone 10 MG Tablet PO SCH ×4 (01:14→23:31)
[2018-08-12] MEDS: Piperacil/Tazo 4.5 GM Premix 4.5 GM/100 ML BAG IV.SIG SCH ×4 (02:54→21:09)
[2018-08-12] MEDS: KCL 20 mEq/D5W/NaCl 0.45% Inj 1,000 ML IV.CONT SCH ×3 (06:32→23:32)
[2018-08-12] MEDS: hydrALAZINE 50 MG Tablet PO SCH ×3 (06:33→21:09)
[2018-08-12] MEDS: Metoprolol Tartrate 25 MG Tablet PO SCH ×2 (08:40→21:09)
[2018-08-12] MEDS: Insulin NovoLOG Aspart Correctional Sugar Inj SQ SCH ×4 (08:41→21:11)
[2018-08-12] MEDS: Sertraline 50 MG Tablet PO SCH (08:41)
--- NOTE | 2018-08-12 09:14 | P.PNURO ---
Subjective Patient symptoms today: Pt seen and examined. Resting comfortably. Objective Vital Signs: Vital Signs 08/11/18 12:00 08/11/18 16:00 08/11/18 20:00 Temperature 97.9 F 97.3 F L 98.5 F Pulse Rate 53 L 54 L 57 L Respiratory Rate 16 16 19 Blood Pressure 133/83 130/87 166/100 H Pulse Oximetry 100 97 97 08/12/18 00:00 08/12/18 02:47 Temperature 97.6 F Pulse Rate 52 L Respiratory Rate 18 18 Blood Pressure 115/61 Pulse Oximetry 96 Intake & Output 08/11/18 08/12/18 08/12/18 18:59 06:59 18:59 Intake Total 1307.2 / 1307.2 2320 / 2320 Output Total 350 / 350 1525 / 1525 Balance 957.2 / 957.2 795 / 795 Weight 83.9 kg Intake: IV 1087.2 / 1087.2 2200 / 2200 D5W/1/2NS + KCL 20 mEq Inj 1, 987.2 / 987.2 2000 / 2000 000 ML @ 100 mls/hr IV.CONT . Q10H [facility] Rx#:[id number] Zosyn 4.5 GM Premix 4.5 gm In 100 / 100 200 / 200 100 ml @ 200 mls/hr IV.SIG Q6H [facility] Rx#:[id number] Oral 220 / 220 120 / 120 Output: Urine Amount (Stoma) 350 / 350 1525 / 1525 Nephrostomy Tube Right 350 / 350 1525 / 1525 Result Diagrams: 08/09/18 17:06 08/09/18 17:06 Medications and IVs: Active Medications Generic Name Dose Route Start Last Admin Trade Name Freq PRN Reason Stop Dose Admin Acetaminophen 650 mg 08/08/18 13:34 Tylenol PO Q4H PRN headache/fever/pain1-5 Al Hydroxide/Mg Hydroxide 30 ml 08/05/18 21:56 Milk Of Magnesia Liq PO Q12H PRN Mild Constipation Bisacodyl 10 mg 08/05/18 21:56 Dulcolax Supp RECTAL DAILY PRN SEVERE CONSITIPATION Clonidine HCl 0.1 mg 08/07/18 08:08 08/11/18 21:14 Catapres PO 0.1 mg Q8H PRN Administration SBP >160 or DPB >100 Dextrose 50 ml 08/05/18 22:00 D50w Vial IV.PUSH UNSCH PRN PER HYPOGLYCEMIA PROTOCOL Glucagon 1 mg 08/05/18 22:00 08/06/18 14:36 Glucagon Inj OTHER 1 mg PRN PRN Administration for Hypoglycemia Protocol Hydralazine HCl 50 mg 08/07/18 14:00 08/12/18 06:33 Apresoline PO 50 mg Q8HR [facility] Administration Piperacillin/Tazobactam/Dextrose 4.5 gm in 100 mls @ 200 mls/hr 08/11/18 15: 00 08/12/18 08:41 Zosyn 4.5 Gm Premix IV.SIG 200 mls/hr Q6H [facility] Administration Potassium Chloride/Dextrose/Sod Cl 1,000 mls @ 100 mls/hr 08/06/18 12:00 06/18 06:32 D5w/1/2ns + Kcl 20 Meq Inj IV.CONT 100 mls/hr .Q10H [facility] Administration Insulin Aspart 0 unit 08/06/18 08:00 08/12/18 08:41 Novolog Insulin Correctional Sugar Inj SQ Not Given ACHS [facility] Protocol Insulin Detemir 5 unit 08/06/18 09:00 08/09/18 10:19 Levemir Inj SQ 5 unit BID [facility] Administration Isosorbide Dinitrate 20 mg 08/07/18 14:00 08/12/18 06:33 Isordil PO 20 mg Q8HR [facility] Administration Lorazepam 0.5 mg 08/07/18 08:08 08/11/18 21:14 Ativan PO 0.5 mg Q4H PRN Administration Anxiety Methadone HCl 5 mg 08/05/18 23:15 08/12/18 06:33 Dolophine PO 5 mg Q8H [facility] Administration Metoprolol Tartrate 25 mg 08/07/18 09:00 08/12/18 08:40 Lopressor PO 25 mg BID [facility] Administration Morphine Sulfate 2 mg 08/09/18 11:36 Morphine Inj IV.PUSH Q4H PRN PAIN SCALE 6 TO 10 Ondansetron HCl 4 mg 08/05/18 21:56 Zofran Inj IV.PUSH Q6H PRN NAUSEA OR VOMITING Risperidone 0.5 mg 08/07/18 09:00 08/12/18 08:40 Risperdal PO 0.5 mg TID [facility] Administration Sennosides 17.2 mg 08/05/18 21:56 Senokot PO Q12H PRN Moderate Constipation Sertraline HCl 50 mg 08/07/18 09:00 08/12/18 08:41 Zoloft PO 50 mg DAILY [facility] Administration Sodium Chloride 2 ml 08/06/18 09:00 08/12/18 08:42 Ns Flush IV.FLUSH Not Given BID [facility] Sodium Chloride 2 ml 08/05/18 21:56 Ns Flush IV.FLUSH PRN PRN FLUSH AFTER USING IV ACCESS Objective Remarks: Abd:soft,nt,nd PCNT: urine clear. Assessment and Plan - Plan 08/12 63 y.o male with encrusted stent with bladder stone with complicated UTI. PT s/ p Nephroureteral stent change. Encrusted JJ stent is present beside nephroureteral stent with bladder attached to stent in bladder. Encrusted stent will need to be removed in the future after her UTI has cleared. This will help reduce future UTI's. Will need to d/w family.
--- NOTE | 2018-08-12 10:51 | P.PNID ---
Subjective Remarks: Patient is a 63-year-old female, with known history of CVA, has aphasia and left -sided hemiplegia, brought into the hospital for further evaluation of her right nephrostomy tube. Patient apparently has been leaking around the site and it is unclear as to how long that has been going on. Her urinalysis on admission did show evidence of pyuria. Low-grade temps [address] of the abdomen and pelvis is showing significant hydronephrosis on the right side. Interventional radiology exchanged her right nephrostomy on August 06. The urine culture is growing E. coli ESBL positive as well as Citrobacter. Patient is afebrile. Her WBC on admission is normal. Her creatinine was up to 1.56 on admission. She is currently on Zosyn. Infectious disease consultation has been requested to assist with evaluation and treatment of UTI with E. coli ESBL positive. Notes reviewed Appreciate urology assistance Repeat CT A/P ordered - pending LAst UC negative 08/10 Last UA still with pyuria, but better Temps ok CReatinine improving R nephroureteral stent replaced 08/06 Antibiotics: Zosyn Past Medical History: Anemia Atrial fibrillation CAD (coronary artery disease) CVA (cerebral vascular accident) Chronic kidney disease (CKD) Diabetes History of carotid stenosis History of cholelithiasis Hyperlipidemia Hypertension Neurogenic bladder Osteoarthritis Schizophrenia Hip fracture requiring operative repair History of ankle surgery History of coronary artery stent placement History of tonsillectomy S/P percutaneous endoscopic gastrostomy (PEG) tube placement History of hysterectomy (Resolved) Allergies/Adverse Reactions: Allergies *MDRO Multi-Drug Resistant Organism Adverse Reaction (Unknown, Uncoded 11/10/17 06:21) 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 ESBL + E. 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 Objective Vital Signs 08/11/18 12:00 08/11/18 16:00 08/11/18 20:00 Temperature 97.9 F 97.3 F L 98.5 F Pulse Rate 53 L 54 L 57 L Respiratory Rate Blood Pressure 133/83 130/87 166/100 H Pulse Oximetry 100 97 97 08/12/18 00:00 08/12/18 02:47 08/12/18 08:00 Temperature 97.6 F 97.8 F Pulse Rate 52 L 49 L Respiratory Rate Blood Pressure 115/61 165/74 H Pulse Oximetry 96 97 Intake & Output 08/11/18 08/12/18 08/12/18 18:59 06:59 18:59 Intake Total 1307.2 / 1307.2 2320 / 2320 100 / 100 Output Total 350 / 350 1525 / 1525 Balance 957.2 / 957.2 795 / 795 100 / 100 Weight 83.9 kg Intake: IV 1087.2 / 1087.2 2200 / 2200 100 / 100 D5W/1/2NS + KCL 20 mEq Inj 1, 987.2 / 987.2 2000 / 2000 000 ML @ 100 mls/hr IV.CONT . Q10H [facility] Rx#:[id number] Zosyn 4.5 GM Premix 4.5 gm In 100 / 100 200 / 200 100 / 100 100 ml @ 200 mls/hr IV.SIG Q6H [facility] Rx#:[id number] Oral 220 / 220 120 / 120 Output: Urine Amount (Stoma) 350 / 350 1525 / 1525 Nephrostomy Tube Right 350 / 350 1525 / 1525 08/10/18 13:10 Clean Catch Urine Urine Culture - Final No growth in 48 hours 08/05/18 18:16 Catheterized Urine Urine Culture - Final Escherichia coli ESBL positive Citrobacter koseri Pseudomonas aeruginosa Multidrug Resistant 08/05/18 18:16 Random Urine Urine Culture - Final Escherichia coli ESBL positive Citrobacter koseri Pseudomonas aeruginosa Multidrug Resistant 08/08/18 13:11 Random Urine Urine Culture - Final Pseudomonas aeruginosa Multidrug Resistant Citrobacter koseri 08/05/18 17:55 Blood - Peripheral Aerobic Blood Culture - Final No growth in 5 days 08/05/18 17:55 Blood - Peripheral Anaerobic Blood Culture - Final No growth in 5 days 08/05/18 18:00 Blood - Peripheral Aerobic Blood Culture - Final No growth in 5 days 08/05/18 18:00 Blood - Peripheral Anaerobic Blood Culture - Final No growth in 5 days Lab - Chemistry Results 08/10/18 08/10/18 08/10/18 07:38 12:05 16:46 POC Glucose 84 101 117 H 08/10/18 08/11/18 08/11/18 20:55 08:08 11:40 POC Glucose 114 H 94 86 08/11/18 08/11/18 08/11/18 12:10 16:54 20:10 POC Glucose 92 108 88 08/12/18 08:38 POC Glucose 95 Imaging: ITS Impressions Chest X-Ray 08/05/18 17:53 CONCLUSION: No obvious airspace disease. Abdomen/Pelvis CT 08/05/18 19:35 CONCLUSION: 1. Severe right hydronephrosis with percutaneous nephrostomy tube and nephroureteral stents in place. 2. Numerous right renal calculi, as well as bladder calculus and possible calcifications along the course of the nephroureteral stent. Ureterogram 08/06/18 00:00 CONCLUSION: 1. Uncomplicated nephroureteral catheter exchange as above. Abdomen/Bladder Ultrasound 08/08/18 00:00 CONCLUSION: 1. Right-sided ureteral stent with multiple right-sided renal calculi as seen on recent CT. Mild hydronephrosis on the right. Left kidney not visualized. Physical Exam: GENERAL: awake and alert, not in respiratory distress. She is following commands, answering some questions SKIN: Cool and dry. No generalized rash HEAD: Atraumatic. Normocephalic. No temporal wasting, or tenderness. EYES: [place] conjunctiva. No petechia or hemorrhage. No scleral icterus. No injection or drainage. Has opacity in R eye EARS, NOSE AND THROAT: Nose without bleeding or purulent nasal discharge. Mucous membranes pink and moist. Has poor dentition. Did not open mouth to do exam of oropharynx NECK: Trachea midline. Supple and not tender, no meningeal signs CARDIOVASCULAR: Regular rate and rhythm. No murmurs, rubs or gallops heard RESPIRATORY: Clear to auscultation. Breath sounds equal bilaterally. No rales , wheezing or rhonchi ABDOMEN: Distended, healed previous PEG site, gets agitated during palpation. BACK: R nephrostomy in place, urine with some sediment EXTREMITIES: No clubbing, cyanosis. Both feet plantar flexed, with some mild pedal edema. NEUROLOGICAL: Awake and alert. Decreased nasolabial fold on left. Spastic in LUE; no movement in LLE. PSYCHIATRIC: Awake, calm LINE: No evidence of infection Assessment and Plan - Plan Impression Complicated UTI, has R nephrouereteral stent and nephrostomy - UC E coli ESBL and Citrobacter - initially with severe hydro on CT; US with mild hydro, has R kidney stones - repeat UC with MDR PSAE, Citrobacter Sepsis due to above Renal insufficiency Hx CVA with L sided weakness and aphasia Recommendation Follow repeat UC Continue IV Zosyn Repeat CT A/P ordered by urology Monitor progress
--- NOTE | 2018-08-12 11:25 | P.PNIM ---
Subjective Interval history: not in pain. no complaints. Physical Exam Vital signs: Vital Signs 08/11/18 12:00 08/11/18 16:00 08/11/18 20:00 Temperature 97.9 F 97.3 F L 98.5 F Pulse Rate 53 L 54 L 57 L Respiratory Rate 16 16 19 Blood Pressure 133/83 130/87 166/100 H Pulse Oximetry 100 97 97 08/12/18 00:00 08/12/18 02:47 08/12/18 08:00 Temperature 97.6 F 97.8 F Pulse Rate 52 L 49 L Respiratory Rate 18 18 19 Blood Pressure 115/61 165/74 H Pulse Oximetry 96 97 Intake & Output 08/11/18 08/12/18 08/12/18 18:59 06:59 18:59 Intake Total 1307.2 / 1307.2 2320 / 2320 100 / 100 Output Total 350 / 350 1525 / 1525 Balance 957.2 / 957.2 795 / 795 100 / 100 Weight 83.9 kg Intake: IV 1087.2 / 1087.2 2200 / 2200 100 / 100 D5W/1/2NS + KCL 20 mEq Inj 1, 987.2 / 987.2 2000 / 2000 000 ML @ 100 mls/hr IV.CONT . Q10H [facility] Rx#:[id number] Zosyn 4.5 GM Premix 4.5 gm In 100 / 100 200 / 200 100 / 100 100 ml @ 200 mls/hr IV.SIG Q6H [facility] Rx#:[id number] Oral 220 / 220 120 / 120 Output: Urine Amount (Stoma) 350 / 350 1525 / 1525 Nephrostomy Tube Right 350 / 350 1525 / 1525 Narrative: GENERAL: Chronically ill-appearing middle-aged female patient in NAD laying in bed. Generalized weakness. HEENT:not pale,anicteric, edentulous CARDIOVASCULAR: Regular rate and rhythm.s1s2 normal, no murmurs. RESPIRATORY: No accessory muscle use. Clear to auscultation. Breath sounds equal bilaterally. GASTROINTESTINAL: Abdomen soft, non-tender, mild distention, few bowel sounds. Old PEG tube site closed without any drainage. Bandage over the area. Nephrostomy tube in place,draining straw colored, covered with dressing. MUSCULOSKELETAL: No obvious deformities. Extremities without clubbing, cyanosis , or edema. NEUROLOGICAL: Awake and alert, oriented to self only. Left-sided hemiplegia with left upper extremity contracture unchanged. Slurred speech, however mostly able to understand, answer simple questions, follows commands. SKIN:erythematous rash on anterior and lateral aspect of lt chest wall under contracted arm. Results Labs CBC & Chem 7: 08/09/18 17:06 08/12/18 11:52 Labs: Microbiology 08/10/18 13:10 Clean Catch Urine Urine Culture - Final No growth in 48 hours 08/05/18 18:16 Catheterized Urine Urine Culture - Final Escherichia coli ESBL positive Citrobacter koseri Pseudomonas aeruginosa Multidrug Resistant 08/05/18 18:16 Random Urine Urine Culture - Final Escherichia coli ESBL positive Citrobacter koseri Pseudomonas aeruginosa Multidrug Resistant 08/08/18 13:11 Random Urine Urine Culture - Final Pseudomonas aeruginosa Multidrug Resistant Citrobacter koseri Assessment and Plan Plan 63-year-old female under hospice with a past medical history of CVA with expressive aphasia and left-sided hemiplegia, neurogenic bladder, recurrent UTIs , nephrostomy tube, PEG tube, CKD stage III, anemia, diabetes and hypertension presents to the emergency department from [facility] for evaluation of nephrostomy tube. Right nephrostomy tube malfunction: -S/p right nephrostomy tube replacement by IR on 08/06,now functioning well. Complicated UTI: ESBL+ E.Coli. Patient also has a rt kidney ureteral stent which is encrusted with stone and is suspected to be the source of recurrent infections.Urology rec removal. -Blood cultures with NGTD -08/08 - Urine culture with ESBL+ E.Coli and Citrobacter Koseri, Pseudomonas aeruginosa. Was on IV Ertapenem. urine culture on 08/10 remain negative at 48 hrs. She was switched to Zosyn on 08/11. appreciate IDs recommendations Diabetes mellitus, insulin-dependent: blood glucose controlled. -Continue monitor blood sugar with sliding-scale insulin -Episodes of hypoglycemia while n.p.o. or poor oral intake, continue fluids with D5, will hold Levemir and monitor blood sugar Hypertension, overall controlled: -Continue home clonidine and hydralazine Schizophrenia: -Continue Risperdal and sertraline Chronic kidney disease 3: -Continue IV fluid hydration -Avoid nephrotoxins. CVA: chronic with left sided hemiplegia and dysphagia -patient on pureed diet with nectar thickened liquids at SNF, per take off man, will continue -RN or COATING TECHNICIAN to assist with all feedings and HOB at >45 degrees -continue home meds DVT Prophylaxis: Teds/SCDs, subcu Discharge Planning: The patient is currently under hospice care at SNF, Nephrostomy tube has been replaced. Progress Note: Quality VTE Deep Vein Thrombosis/Pulmonary Embolism Present on Admission: No
[2018-08-12 11:30] LABS: Bacteria,Urine Few /hpf; Bilirubin,Urine Negative (Negative); Clarity,Urine Hazy (Clear); Color,Urine Yellow (Yellw/Straw); Glucose,Urine (UA) Negative (Negative); Leukocyte Esterase,Urine Large (Negative); Nitrite,Urine Negative (Negative); Specific Gravity,Urine 1.008 (1.002-1.035); Squamous Epithelial Cell,Urine <1 /hpf (0-5)
[2018-08-12 13:01] LABS: Calcium 8.4 mg/dL (8.5-10.1); Carbon Dioxide 25.4 meq/L (21.0-32.0); Potassium 3.6 meq/L (3.5-5.1)
--- NOTE | 2018-08-12 17:00 | CT ---
EXAM DATE: 08/12/2018 4:47 PM EST AGE/SEX: 63 years / Female INDICATIONS: Hydronephrosis. CLINICAL DATA: This is the patient's subsequent encounter. Patient reports that signs and symptoms h ave been present for 1 week and indicates a pain score of 7/10. MEDICAL/SURGICAL HISTORY: Renal failure, chronic. Cerebrovascular disease. Gastroesophageal r eflux disease. Renal stones. Hypertension. Diabetes. Hysterectomy. Nephrostomy. RADIATION DOSE: 11.75 CTDI (mGy) COMPARISON: [facility] [place] W/O CONTRAST, 08/05/2018. . TECHNIQUE: Multiple contiguous axial images were obtained through the abdomen. Images were obtained using multiple row detector helical technique. Using automated exposure control and adjustment of the mA and/or kV according to patient size, radiation dose was kept as low as reasonably achievable to o btain optimal diagnostic quality images. DICOM format image data is available electronically for rev iew and comparison. FINDINGS: Right-sided percutaneous nephrostomy and double internal ureteral stent stable in position and appear ance when compared to prior. Multiple calcifications layering in the posterior upper pole collecting system and lower pole collecting system is similar in size and appearance when compared to prior. The degree of collecting system dilation of the right kidney is also stable. Atrophic left kidney with calcifications. The aorta is normal in size. No dilated loops of small or l arge bowel. There is stable induration of the subcutaneous soft tissues about the abdominal wall and pelvis. No calcified gallstones. Stable small left pleural effusion. Bilateral internal fixation hard bond in the proximal femora. CONCLUSION: 1. Stable appearance to the right renal collecting system dilation, multiple calcified right renal s tones, and internal/external drainage catheters. 2. No new findings. Electronically signed by: Chetan Beltre MD Board Certified Radiologist 08/12/2018 4:58 PM EST
[2018-08-12] MEDS: LORazepam 0.5 MG Tablet PO PRN (21:09)
[2018-08-13] MEDS: Piperacil/Tazo 4.5 GM Premix 4.5 GM/100 ML BAG IV.SIG SCH ×4 (03:24→20:10)
[2018-08-13] MEDS: KCL 20 mEq/D5W/NaCl 0.45% Inj 1,000 ML IV.CONT SCH ×3 (04:21→21:24)
[2018-08-13] MEDS: hydrALAZINE 50 MG Tablet PO SCH ×3 (05:27→21:24)
[2018-08-13] MEDS: Methadone 10 MG Tablet PO SCH ×2 (06:29→14:42)
[2018-08-13] MEDS: Insulin NovoLOG Aspart Correctional Sugar Inj SQ SCH ×4 (08:12→20:10)
[2018-08-13] MEDS: Sertraline 50 MG Tablet PO SCH (08:13)
[2018-08-13] MEDS: Metoprolol Tartrate 25 MG Tablet PO SCH ×2 (08:13→20:10)
--- NOTE | 2018-08-13 08:44 | P.PNURO ---
Subjective Patient symptoms today: Pt seen and examined. No events. Pt with encrusted JJ stent which is obstructed. Right nephroureteral stent in place s/p change by IR which is patent. Objective Vital Signs: Vital Signs 08/12/18 12:00 08/12/18 16:00 08/12/18 20:00 Temperature 98.2 F 98.4 F 98.7 F Pulse Rate 53 L 53 L 57 L Respiratory Rate 16 19 18 Blood Pressure 160/81 H 158/76 H 174/76 H Pulse Oximetry 97 96 94 L 08/13/18 00:00 08/13/18 03:27 Temperature 98.9 F Pulse Rate 57 L Respiratory Rate 18 20 Blood Pressure 115/53 L Pulse Oximetry 95 Intake & Output 08/12/18 08/13/18 08/13/18 18:59 06:59 18:59 Intake Total 540 / 540 320 / 320 Output Total 750 / 750 1500 / 1500 Balance -210 / -210 -1180 / -1180 Weight 84.6 kg Intake: IV 200 / 200 200 / 200 Zosyn 4.5 GM Premix 4.5 gm In 200 / 200 200 / 200 100 ml @ 200 mls/hr IV.SIG Q6H [facility] Rx#:[id number] Oral 340 / 340 120 / 120 Output: Urine Amount (Stoma) 750 / 750 1500 / 1500 Nephrostomy Tube Right 750 / 750 1500 / 1500 Other: # Bowel Movements 0 Result Diagrams: 08/09/18 17:06 08/12/18 11:52 Imaging: Impressions Abdomen/Pelvis CT 08/12/18 00:00 CONCLUSION: 1. Stable appearance to the right renal collecting system dilation, multiple calcified right renal stones, and internal/external drainage catheters. 2. No new findings. Medications and IVs: Active Medications Generic Name Dose Route Start Last Admin Trade Name Freq PRN Reason Stop Dose Admin Acetaminophen 650 mg 08/08/18 13:34 Tylenol PO Q4H PRN headache/fever/pain1-5 Al Hydroxide/Mg Hydroxide 30 ml 08/05/18 21:56 Milk Of Magnesia Liq PO Q12H PRN Mild Constipation Bisacodyl 10 mg 08/05/18 21:56 Dulcolax Supp RECTAL DAILY PRN SEVERE CONSITIPATION Clonidine HCl 0.1 mg 08/07/18 08:08 08/11/18 21:14 Catapres PO 0.1 mg Q8H PRN Administration SBP >160 or DPB >100 Dextrose 50 ml 08/05/18 22:00 D50w Vial IV.PUSH UNSCH PRN PER HYPOGLYCEMIA PROTOCOL Glucagon 1 mg 08/05/18 22:00 08/06/18 14:36 Glucagon Inj OTHER 1 mg PRN PRN Administration for Hypoglycemia Protocol Hydralazine HCl 50 mg 08/07/18 14:00 08/13/18 05:27 Apresoline PO 50 mg Q8HR [facility] Administration Piperacillin/Tazobactam/Dextrose 4.5 gm in 100 mls @ 200 mls/hr 08/11/18 15: 00 08/13/18 08:14 Zosyn 4.5 Gm Premix IV.SIG 200 mls/hr Q6H [facility] Administration Potassium Chloride/Dextrose/Sod Cl 1,000 mls @ 100 mls/hr 08/06/18 12:00 04:21 D5w/1/2ns + Kcl 20 Meq Inj IV.CONT Not Given .Q10H [facility] Insulin Aspart 0 unit 08/06/18 08:00 08/13/18 08:12 Novolog Insulin Correctional Sugar Inj SQ Not Given ACHS [facility] Protocol Insulin Detemir 5 unit 08/06/18 09:00 08/09/18 10:19 Levemir Inj SQ 5 unit BID [facility] Administration Isosorbide Dinitrate 20 mg 08/07/18 14:00 08/13/18 05:27 Isordil PO 20 mg Q8HR [facility] Administration Lorazepam 0.5 mg 08/07/18 08:08 08/12/18 21:09 Ativan PO 0.5 mg Q4H PRN Administration Anxiety Methadone HCl 5 mg 08/05/18 23:15 08/13/18 06:29 Dolophine PO 5 mg Q8H [facility] Administration Metoprolol Tartrate 25 mg 08/07/18 09:00 08/13/18 08:13 Lopressor PO 25 mg BID [facility] Administration Morphine Sulfate 2 mg 08/09/18 11:36 Morphine Inj IV.PUSH Q4H PRN PAIN SCALE 6 TO 10 Ondansetron HCl 4 mg 08/05/18 21:56 Zofran Inj IV.PUSH Q6H PRN NAUSEA OR VOMITING Risperidone 0.5 mg 08/07/18 09:00 08/13/18 08:13 Risperdal PO 0.5 mg TID [facility] Administration Sennosides 17.2 mg 08/05/18 21:56 Senokot PO Q12H PRN Moderate Constipation Sertraline HCl 50 mg 08/07/18 09:00 08/13/18 08:13 Zoloft PO 50 mg DAILY [facility] Administration Sodium Chloride 2 ml 08/06/18 09:00 08/13/18 08:13 Ns Flush IV.FLUSH Not Given BID [facility] Sodium Chloride 2 ml 08/05/18 21:56 Ns Flush IV.FLUSH PRN PRN FLUSH AFTER USING IV ACCESS Objective Remarks: Abd:soft,nt,nd PCNT: urine clear. 08/13 Abd:soft,nt,nd PCNT: urine clear. Assessment and Plan - Plan 08/12 63 y.o male with encrusted stent with bladder stone with complicated UTI. PT s/ p Nephroureteral stent change. Encrusted JJ stent is present beside nephroureteral stent with bladder attached to stent in bladder. Encrusted stent will need to be removed in the future after her UTI has cleared. This will help reduce future UTI's. Will need to d/w family. 08/13 63 y.o female with encrusted right ureteral stent with bladder stone. Stent needs to be removed as she has a PCNT with nephroureteral stent in place which was recently changed and is patent. Pt will continue to get complicated UTI's as long as encrusted stent is in place. Will plan of cysto with laser of bladder stone of encrusted stent with removal of stent in OR tomorrow as long as she is cleared by medicine and family agrees.
--- NOTE | 2018-08-13 13:34 | P.PNID ---
Subjective Remarks: Patient is a 63-year-old female, with known history of CVA, has aphasia and left -sided hemiplegia, brought into the hospital for further evaluation of her right nephrostomy tube. Patient apparently has been leaking around the site and it is unclear as to how long that has been going on. Her urinalysis on admission did show evidence of pyuria. Low-grade temps [address] of the abdomen and pelvis is showing significant hydronephrosis on the right side. Interventional radiology exchanged her right nephrostomy on August 06. The urine culture is growing E. coli ESBL positive as well as Citrobacter. Patient is afebrile. Her WBC on admission is normal. Her creatinine was up to 1.56 on admission. She is currently on Zosyn. Infectious disease consultation has been requested to assist with evaluation and treatment of UTI with E. coli ESBL positive. Notes reviewed Afebrile D/W Dr Benton Creatinine better Last UC negative Repeat US with renal calculi and mild hydro on R; L kidney not visualized Repeat UA, pyuria is better Repeat CT A/P - same hydro R, kidney stones noted, stent in plance Antibiotics: Zosyn Past Medical History: Anemia Atrial fibrillation CAD (coronary artery disease) CVA (cerebral vascular accident) Chronic kidney disease (CKD) Diabetes History of carotid stenosis History of cholelithiasis Hyperlipidemia Hypertension Neurogenic bladder Osteoarthritis Schizophrenia Hip fracture requiring operative repair History of ankle surgery History of coronary artery stent placement History of tonsillectomy S/P percutaneous endoscopic gastrostomy (PEG) tube placement History of hysterectomy (Resolved) Allergies/Adverse Reactions: Allergies *MDRO Multi-Drug Resistant Organism Adverse Reaction (Unknown, Uncoded 11/10/17 06:21) 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 ESBL + E. 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 Objective Vital Signs 08/12/18 16:00 08/12/18 20:00 08/13/18 00:00 Temperature 98.4 F 98.7 F 98.9 F Pulse Rate 53 L 57 L 57 L Respiratory Rate 18 18 Blood Pressure 158/76 H 174/76 H 115/53 L Pulse Oximetry 96 94 L 95 08/13/18 03:27 08/13/18 08:00 08/13/18 12:00 Temperature 97.7 F 97.8 F Pulse Rate 55 L 88 Respiratory Rate 20 17 16 Blood Pressure 127/61 100/63 Pulse Oximetry 96 99 Intake & Output 08/12/18 08/13/18 08/13/18 18:59 06:59 18:59 Intake Total 540 / 540 320 / 320 1100 / 1100 Output Total 750 / 750 1500 / 1500 Balance -210 / -210 -1180 / -1180 1100 / 1100 Weight 84.6 kg Intake: IV 200 / 200 200 / 200 1100 / 1100 D5W/1/2NS + KCL 20 mEq Inj 1, 1000 / 1000 000 ML @ 100 mls/hr IV.CONT . Q10H [facility] Rx#:[id number] Zosyn 4.5 GM Premix 4.5 gm In 200 / 200 200 / 200 100 / 100 100 ml @ 200 mls/hr IV.SIG Q6H [facility] Rx#:[id number] Oral 340 / 340 120 / 120 Output: Urine Amount (Stoma) 750 / 750 1500 / 1500 Nephrostomy Tube Right 750 / 750 1500 / 1500 Other: # Bowel Movements 0 08/10/18 13:10 Clean Catch Urine Urine Culture - Final No growth in 48 hours 08/05/18 18:16 Catheterized Urine Urine Culture - Final Escherichia coli ESBL positive Citrobacter koseri Pseudomonas aeruginosa Multidrug Resistant 08/05/18 18:16 Random Urine Urine Culture - Final Escherichia coli ESBL positive Citrobacter koseri Pseudomonas aeruginosa Multidrug Resistant 08/08/18 13:11 Random Urine Urine Culture - Final Pseudomonas aeruginosa Multidrug Resistant Citrobacter koseri 08/05/18 17:55 Blood - Peripheral Aerobic Blood Culture - Final No growth in 5 days 08/05/18 17:55 Blood - Peripheral Anaerobic Blood Culture - Final No growth in 5 days 08/05/18 18:00 Blood - Peripheral Aerobic Blood Culture - Final No growth in 5 days 08/05/18 18:00 Blood - Peripheral Anaerobic Blood Culture - Final No growth in 5 days Lab - Chemistry Results 08/11/18 08/11/18 08/12/18 16:54 20:10 08:38 Sodium Potassium Chloride Carbon Dioxide Anion Gap BUN Creatinine Estimated GFR POC Glucose 108 88 95 Random Glucose Calcium 08/12/18 08/12/18 08/12/18 11:52 11:54 17:36 Sodium 142 Potassium 3.6 Chloride 111 H Carbon Dioxide 25.4 Anion Gap 6 BUN 10 Creatinine 1.19 H Estimated GFR 46 L POC Glucose 83 102 Random Glucose 78 Calcium 8.4 L 08/12/18 08/13/18 21:11 08:11 Sodium Potassium Chloride Carbon Dioxide Anion Gap BUN Creatinine Estimated GFR POC Glucose 122 H 75 Random Glucose Calcium Imaging: ITS Impressions Chest X-Ray 08/05/18 17:53 CONCLUSION: No obvious airspace disease. Ureterogram 08/06/18 00:00 CONCLUSION: 1. Uncomplicated nephroureteral catheter exchange as above. Abdomen/Bladder Ultrasound 08/08/18 00:00 CONCLUSION: 1. Right-sided ureteral stent with multiple right-sided renal calculi as seen on recent CT. Mild hydronephrosis on the right. Left kidney not visualized. Abdomen/Pelvis CT 08/12/18 00:00 CONCLUSION: 1. Stable appearance to the right renal collecting system dilation, multiple calcified right renal stones, and internal/external drainage catheters. 2. No new findings. Physical Exam: GENERAL: awake and alert, not in respiratory distress. She is following commands, answering some questions SKIN: Cool and dry. No generalized rash EYES: [place] conjunctiva. No petechia or hemorrhage. No scleral icterus. No injection or drainage. Has opacity in R eye EARS, NOSE AND THROAT: Mucous membranes pink and moist. Has poor dentition. Did not open mouth to do exam of oropharynx NECK: Trachea midline. Supple and not tender, no meningeal signs CARDIOVASCULAR: Regular rate and rhythm. No murmurs, rubs or gallops heard RESPIRATORY: Clear to auscultation. Breath sounds equal bilaterally. No rales , wheezing or rhonchi ABDOMEN: Distended, healed previous PEG site, min tenderness BACK: R nephrostomy in place, urine with some sediment EXTREMITIES: No clubbing, cyanosis. Both feet plantar flexed, with some mild pedal edema. NEUROLOGICAL: Awake and alert. Decreased nasolabial fold on left. Spastic in LUE; no movement in LLE. PSYCHIATRIC: Awake, calm LINE: No evidence of infection Assessment and Plan - Plan Impression Complicated UTI, has R nephrouereteral stent and nephrostomy - UC E coli ESBL and Citrobacter - initially with severe hydro on CT; US with mild hydro, has R kidney stones - repeat UC with MDR PSAE, Citrobacter Sepsis due to above Renal insufficiency Hx CVA with L sided weakness and aphasia Recommendation Follow repeat UC Continue IV Zosyn Possible removal of stent tomorrow once consent obtained Monitor progress D/W Dr Benton
--- NOTE | 2018-08-13 15:37 | P.PNIM ---
Subjective Interval history: no acute events overnight. Physical Exam Vital signs: Vital Signs 08/12/18 16:00 08/12/18 20:00 08/13/18 00:00 Temperature 98.4 F 98.7 F 98.9 F Pulse Rate 53 L 57 L 57 L Respiratory Rate 19 18 18 Blood Pressure 158/76 H 174/76 H 115/53 L Pulse Oximetry 96 94 L 95 08/13/18 03:27 08/13/18 08:00 08/13/18 12:00 Temperature 97.7 F 97.8 F Pulse Rate 55 L 88 Respiratory Rate 20 17 16 Blood Pressure 127/61 100/63 Pulse Oximetry 96 99 Intake & Output 08/12/18 08/13/18 08/13/18 18:59 06:59 18:59 Intake Total 540 / 540 320 / 320 1100 / 1100 Output Total 750 / 750 1500 / 1500 Balance -210 / -210 -1180 / -1180 1100 / 1100 Weight 84.6 kg Intake: IV 200 / 200 200 / 200 1100 / 1100 D5W/1/2NS + KCL 20 mEq Inj 1, 1000 / 1000 000 ML @ 100 mls/hr IV.CONT . Q10H CLAUDE Rx#:[id number] Zosyn 4.5 GM Premix 4.5 gm In 200 / 200 200 / 200 100 / 100 100 ml @ 200 mls/hr IV.SIG Q6H CLAUDE Rx#:[id number] Oral 340 / 340 120 / 120 Output: Urine Amount (Stoma) 750 / 750 1500 / 1500 Nephrostomy Tube Right 750 / 750 1500 / 1500 Other: # Bowel Movements 0 Narrative: GENERAL: Chronically ill-appearing middle-aged female patient in NAD laying in bed. Generalized weakness. HEENT:not pale,anicteric, edentulous CARDIOVASCULAR: Regular rate and rhythm.s1s2 normal, no murmurs. RESPIRATORY: No accessory muscle use. Clear to auscultation. Breath sounds equal bilaterally. GASTROINTESTINAL: Abdomen soft, non-tender, mild distention, few bowel sounds. Old PEG tube site closed without any drainage. Bandage over the area. Nephrostomy tube in place,draining straw colored, covered with dressing. MUSCULOSKELETAL: No obvious deformities. Extremities without clubbing, cyanosis , or edema. NEUROLOGICAL: Awake and alert, oriented to self only. Left-sided hemiplegia with left upper extremity contracture unchanged. Slurred speech, however mostly able to understand, answer simple questions, follows commands. SKIN:erythematous rash on anterior and lateral aspect of lt chest wall under contracted arm. Results Labs CBC & Chem 7: 08/14/18 07:09 08/14/18 07:09 Labs: Microbiology 08/10/18 13:10 Clean Catch Urine Urine Culture - Final No growth in 48 hours Imaging Imaging: Impressions Abdomen/Pelvis CT 08/12/18 00:00 CONCLUSION: 1. Stable appearance to the right renal collecting system dilation, multiple calcified right renal stones, and internal/external drainage catheters. 2. No new findings. 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 Right nephrostomy tube malfunction: -S/p right nephrostomy tube replacement by IR on 08/06,now functioning well. Patient also has a rt kidney ureteral stent which is encrusted with stone and is suspected to be the source of recurrent infections.Urology planning for removal on 08/13 if consent obtainable, so far not been able to reach her next of kin. Complicated UTI: ESBL+ E.Coli. Patient also has a rt kidney ureteral stent which is encrusted with stone and is suspected to be the source of recurrent infections.Urology rec removal. -Blood cultures with NGTD -08/08 - Urine culture with ESBL+ E.Coli and Citrobacter Koseri, Pseudomonas aeruginosa. Was on IV Ertapenem. urine culture on 08/10 remain negative at 48 hrs. She was switched to Zosyn on 08/11. appreciate IDs recommendations Diabetes mellitus, insulin-dependent: blood glucose controlled. -Continue monitor blood sugar with sliding-scale insulin -Episodes of hypoglycemia while n.p.o. or poor oral intake, continue fluids with D5, will hold Levemir and monitor blood sugar Hypertension, overall controlled: -Continue home clonidine and hydralazine Schizophrenia: -Continue Risperdal and sertraline Chronic kidney disease 3: -Continue IV fluid hydration -Avoid nephrotoxins. CVA: chronic with left sided hemiplegia and dysphagia -patient on pureed diet with nectar thickened liquids at [facility], per applications support specialist, will continue -RN or HEAD COACH to assist with all feedings and HOB at >45 degrees -continue home meds DVT Prophylaxis: Teds/SCDs, subcu Discharge Planning: The patient is currently under hospice care at SNF, Nephrostomy tube has been replaced. Progress Note: Quality VTE Deep Vein Thrombosis/Pulmonary Embolism Present on Admission: No
[2018-08-14] MEDS: Methadone 10 MG Tablet PO SCH ×4 (00:06→14:45)
[2018-08-14] MEDS: Piperacil/Tazo 4.5 GM Premix 4.5 GM/100 ML BAG IV.SIG SCH ×4 (03:58→20:47)
[2018-08-14] MEDS: KCL 20 mEq/D5W/NaCl 0.45% Inj 1,000 ML IV.CONT SCH ×3 (04:01→20:47)
[2018-08-14] MEDS: hydrALAZINE 50 MG Tablet PO SCH ×4 (06:10→21:00)
[2018-08-14 07:27] LABS: Baso % (Auto) 0.2 % (0.0-2.0); Eos # (Auto) 0.6 th/mm3 (0.0-0.4); Eos % (Auto) 12.3 % (0.0-4.0); Hemoglobin 9.4 gm/dL (11.6-15.3); Lymph # (Auto) 1.7 th/mm3 (1.0-4.8); Lymph % (Auto) 37.4 % (9.0-44.0); Mean Corpuscular HGB Conc 32.3 % (32.0-36.0); Mean Corpuscular Volume 80.5 fL (80.0-100.0); Mean Platelet Volume 9.5 fL (7.0-11.0); Mono # (Auto) 0.3 th/mm3 (0.0-0.9); Mono % (Auto) 6.5 % (0.0-8.0); Neut % (Auto) 43.6 % (16.0-70.0); Platelet Count 152 th/mm3 (150-450); Red Blood Count 3.61 mil/mm3 (4.00-5.30); Red Cell Distribution Width 16.5 % (11.6-17.2); White Blood Count 4.5 th/mm3 (4.0-11.0)
[2018-08-14 07:59] LABS: Carbon Dioxide 26.2 meq/L (21.0-32.0); Potassium 3.6 meq/L (3.5-5.1)
[2018-08-14] MEDS: Metoprolol Tartrate 25 MG Tablet PO SCH ×2 (08:02→20:54)
[2018-08-14] MEDS: Sertraline 50 MG Tablet PO SCH (08:02)
[2018-08-14] MEDS: Insulin NovoLOG Aspart Correctional Sugar Inj SQ SCH ×4 (08:07→20:54)
--- NOTE | 2018-08-14 10:13 | P.PNIM ---
Subjective Interval history: no acute events overnight. We tried to reach patient's son Surinder for consent but were unable to. Physical Exam Vital signs: Vital Signs 08/13/18 12:00 08/13/18 16:00 08/13/18 20:00 Temperature 97.8 F 98.6 F 98.3 F Pulse Rate 88 55 L 60 Respiratory Rate 16 19 16 Blood Pressure 100/63 145/72 H 128/62 Pulse Oximetry 99 99 94 L 08/14/18 00:00 08/14/18 04:01 08/14/18 07:01 Temperature 99 F Pulse Rate 52 L Respiratory Rate 16 18 18 Blood Pressure 137/62 Pulse Oximetry 95 08/14/18 08:00 Temperature 98.1 F Pulse Rate 58 L Respiratory Rate 18 Blood Pressure 133/61 Pulse Oximetry 93 L Intake & Output 08/13/18 08/14/18 08/14/18 18:59 06:59 18:59 Intake Total 1520 / 1520 1200 / 1200 1100 / 1100 Output Total 850 / 850 1120 / 1120 Balance 670 / 670 80 / 80 1100 / 1100 Weight 84.7 kg Intake: IV 1200 / 1200 1200 / 1200 1100 / 1100 D5W/1/2NS + KCL 20 mEq Inj 1, 1000 / 1000 1000 / 1000 1000 / 1000 000 ML @ 100 mls/hr IV.CONT . Q10H CLAUDE Rx#:[id number] Zosyn 4.5 GM Premix 4.5 gm In 200 / 200 200 / 200 100 / 100 100 ml @ 200 mls/hr IV.SIG Q6H CLAUDE Rx#:[id number] Oral 320 / 320 Output: Urine 1120 / 1120 Urine Amount (Stoma) 850 / 850 Nephrostomy Tube Right 850 / 850 Other: Date of Last Bowel Movement 08/12/18 # Bowel Movements 0 Narrative: GENERAL: Chronically ill-appearing middle-aged female patient in NAD laying in bed. Generalized weakness. HEENT:not pale,anicteric, edentulous CARDIOVASCULAR: Regular rate and rhythm.s1s2 normal, no murmurs. RESPIRATORY: No accessory muscle use. Clear to auscultation. Breath sounds equal bilaterally. GASTROINTESTINAL: Abdomen soft, non-tender, mild distention, few bowel sounds. Old PEG tube site closed without any drainage. Bandage over the area. Nephrostomy tube in place,draining straw colored, covered with dressing. MUSCULOSKELETAL: No obvious deformities. Extremities without clubbing, cyanosis , or edema. NEUROLOGICAL: Awake and alert, oriented to self only. Left-sided hemiplegia with left upper extremity contracture unchanged. Slurred speech, however mostly able to understand, answer simple questions, follows commands. SKIN:erythematous rash on anterior and lateral aspect of lt chest wall under contracted arm,improving. Results Labs CBC & Chem 7: 08/14/18 07:09 08/15/18 05:24 Assessment and Plan Plan 63-year-old female under hospice with a past medical history of CVA with expressive aphasia and left-sided hemiplegia, neurogenic bladder, recurrent UTIs , nephrostomy tube, PEG tube, CKD stage III, anemia, diabetes and hypertension presents to the emergency department from [facility] for evaluation of nephrostomy tube. Right nephrostomy tube malfunction: -S/p right nephrostomy tube replacement by IR on 08/06,now functioning well. Patient also has a rt kidney ureteral stent which is encrusted with stone and is suspected to be the source of recurrent infections.Urology planning for removal on 08/13 if consent obtainable, so far not been able to reach her next of kin. -08/14-still unable to reach patient's NOK for consent. Complicated UTI: ESBL+ E.Coli. Patient also has a rt kidney ureteral stent which is encrusted with stone and is suspected to be the source of recurrent infections.Urology rec removal as above. -Blood cultures with NGTD -08/08 - Urine culture with ESBL+ E.Coli and Citrobacter Koseri, Pseudomonas aeruginosa. Was on IV Ertapenem. urine culture on 08/10 remain negative at 48 hrs. She was switched to Zosyn on 08/11. appreciate IDs recommendations Diabetes mellitus, insulin-dependent: blood glucose controlled. -Continue monitor blood sugar with sliding-scale insulin -Episodes of hypoglycemia while n.p.o. or poor oral intake, continue fluids with D5, will hold Levemir and monitor blood sugar Hypertension, overall controlled: -Continue home clonidine and hydralazine Schizophrenia: -Continue Risperdal and sertraline Chronic kidney disease 3: Cr noted to be elevate to 1.54 this am and hypernatremia noted. She has been on D5W. Seems like this was not running well yesterday. Continue same at 100mls/ hr. -Continue IV fluid hydration -Avoid nephrotoxins. CVA: chronic with left sided hemiplegia and dysphagia -patient on pureed diet with nectar thickened liquids at SNF, per return clerk, will continue -RN or [employer] to assist with all feedings and HOB at >45 degrees -continue home meds DVT Prophylaxis: Teds/SCDs, subcu Discharge Planning: The patient is currently under hospice care at SNF, Nephrostomy tube has been replaced. Progress Note: Quality VTE Deep Vein Thrombosis/Pulmonary Embolism Present on Admission: No
--- NOTE | 2018-08-14 11:34 | P.PNURO ---
Subjective Patient symptoms today: Patient seen and examined at the bedside. Patient advised that surgery is being recommended today to remove her stent which is encrusted with stone fragments and causing recurrent urinary tract infections. The patient refused operative intervention at this time. Objective Vital Signs: Vital Signs 08/13/18 12:00 08/13/18 16:00 08/13/18 20:00 Temperature 97.8 F 98.6 F 98.3 F Pulse Rate 88 55 L 60 Respiratory Rate 16 19 16 Blood Pressure 100/63 145/72 H 128/62 Pulse Oximetry 99 99 94 L 08/14/18 00:00 08/14/18 04:01 08/14/18 07:01 Temperature 99 F Pulse Rate 52 L Respiratory Rate 16 18 18 Blood Pressure 137/62 Pulse Oximetry 95 08/14/18 08:00 Temperature 98.1 F Pulse Rate 58 L Respiratory Rate 18 Blood Pressure 133/61 Pulse Oximetry 93 L Intake & Output 08/13/18 08/14/18 08/14/18 18:59 06:59 18:59 Intake Total 1520 / 1520 1200 / 1200 1100 / 1100 Output Total 850 / 850 1120 / 1120 600 / 600 Balance 670 / 670 80 / 80 500 / 500 Weight 84.7 kg Intake: IV 1200 / 1200 1200 / 1200 1100 / 1100 D5W/1/2NS + KCL 20 mEq Inj 1, 1000 / 1000 1000 / 1000 1000 / 1000 000 ML @ 100 mls/hr IV.CONT . Q10H CLAUDE Rx#:[id number] Zosyn 4.5 GM Premix 4.5 gm In 200 / 200 200 / 200 100 / 100 100 ml @ 200 mls/hr IV.SIG Q6H CLAUDE Rx#:[id number] Oral 320 / 320 Output: Urine 1120 / 1120 Urine Amount (Stoma) 850 / 850 600 / 600 Nephrostomy Tube Right 850 / 850 600 / 600 Other: Date of Last Bowel Movement 08/12/18 # Bowel Movements 0 Result Diagrams: 08/14/18 07:09 08/14/18 07:09 Medications and IVs: Active Medications Generic Name Dose Route Start Last Admin Trade Name Freq PRN Reason Stop Dose Admin Acetaminophen 650 mg 08/08/18 13:34 Tylenol PO Q4H PRN headache/fever/pain1-5 Al Hydroxide/Mg Hydroxide 30 ml 08/05/18 21:56 Milk Of Magnesia Liq PO Q12H PRN Mild Constipation Bisacodyl 10 mg 08/05/18 21:56 Dulcolax Supp RECTAL DAILY PRN SEVERE CONSITIPATION Clonidine HCl 0.1 mg 08/07/18 08:08 08/11/18 21:14 Catapres PO 0.1 mg Q8H PRN Administration SBP >160 or DPB >100 Dextrose 50 ml 08/05/18 22:00 D50w Vial IV.PUSH UNSCH PRN PER HYPOGLYCEMIA PROTOCOL Glucagon 1 mg 08/05/18 22:00 08/06/18 14:36 Glucagon Inj OTHER 1 mg PRN PRN Administration for Hypoglycemia Protocol Hydralazine HCl 50 mg 08/07/18 14:00 08/14/18 06:10 Apresoline PO 50 mg Q8HR CLAUDE Administration Piperacillin/Tazobactam/Dextrose 4.5 gm in 100 mls @ 200 mls/hr 08/11/18 15: 00 08/14/18 08:32 Zosyn 4.5 Gm Premix IV.SIG Infused Q6H CLAUDE Infusion Potassium Chloride/Dextrose/Sod Cl 1,000 mls @ 100 mls/hr 08/06/18 12:00 11:11 D5w/1/2ns + Kcl 20 Meq Inj IV.CONT 100 mls/hr .Q10H CLAUDE Administration Insulin Aspart 0 unit 08/06/18 08:00 08/14/18 08:07 Novolog Insulin Correctional Sugar Inj SQ Not Given ACHS [facility] Protocol Insulin Detemir 5 unit 08/06/18 09:00 08/09/18 10:19 Levemir Inj SQ 5 unit BID CLAUDE Administration Isosorbide Dinitrate 20 mg 08/07/18 14:00 08/14/18 06:10 Isordil PO 20 mg Q8HR CLAUDE Administration Lorazepam 0.5 mg 08/07/18 08:08 08/12/18 21:09 Ativan PO 0.5 mg Q4H PRN Administration Anxiety Methadone HCl 5 mg 08/05/18 23:15 08/14/18 07:01 Dolophine PO Not Given Q8H [facility] Metoprolol Tartrate 25 mg 08/07/18 09:00 08/14/18 08:02 Lopressor PO 25 mg BID CLAUDE Administration Morphine Sulfate 2 mg 08/09/18 11:36 Morphine Inj IV.PUSH Q4H PRN PAIN SCALE 6 TO 10 Ondansetron HCl 4 mg 08/05/18 21:56 Zofran Inj IV.PUSH Q6H PRN NAUSEA OR VOMITING Risperidone 0.5 mg 08/07/18 09:00 08/14/18 08:03 Risperdal PO 0.5 mg TID CLAUDE Administration Sennosides 17.2 mg 08/05/18 21:56 Senokot PO Q12H PRN Moderate Constipation Sertraline HCl 50 mg 08/07/18 09:00 08/14/18 08:02 Zoloft PO 50 mg DAILY CLAUDE Administration Sodium Chloride 2 ml 08/06/18 09:00 08/14/18 08:03 Ns Flush IV.FLUSH 2 ml BID CLAUDE Administration Sodium Chloride 2 ml 08/05/18 21:56 Ns Flush IV.FLUSH PRN PRN FLUSH AFTER USING IV ACCESS Objective Remarks: Abd:soft,nt,nd PCNT: urine clear. 08/13 Abd:soft,nt,nd PCNT: urine clear. 08/14 Abd:soft,nt,nd PCNT: urine clear Assessment and Plan - Plan 08/12 63 y.o male with encrusted stent with bladder stone with complicated UTI. PT s/ p Nephroureteral stent change. Encrusted JJ stent is present beside nephroureteral stent with bladder attached to stent in bladder. Encrusted stent will need to be removed in the future after her UTI has cleared. This will help reduce future UTI's. Will need to d/w family. 08/13 63 y.o female with encrusted right ureteral stent with bladder stone. Stent needs to be removed as she has a PCNT with nephroureteral stent in place which was recently changed and is patent. Pt will continue to get complicated UTI's as long as encrusted stent is in place. Will plan of cysto with laser of bladder stone of encrusted stent with removal of stent in OR tomorrow as long as she is cleared by medicine and family agrees. 08/14 63-year-old female with encrusted right ureteral stent with bladder calculus. Multiple attempts were made to contact the son by both myself and the staff and this was unsuccessful. The patient explained at length that surgery was recommended to remove her stent and she has refused. Would recommend change of her nephrostomy tube in approximately 3 months as an outpatient by interventional radiology.
--- NOTE | 2018-08-14 13:07 | P.PNID ---
Subjective Remarks: Patient is a 63-year-old female, with known history of CVA, has aphasia and left -sided hemiplegia, brought into the hospital for further evaluation of her right nephrostomy tube. Patient apparently has been leaking around the site and it is unclear as to how long that has been going on. Her urinalysis on admission did show evidence of pyuria. Low-grade temps [address] of the abdomen and pelvis is showing significant hydronephrosis on the right side. Interventional radiology exchanged her right nephrostomy on August 06. The urine culture is growing E. coli ESBL positive as well as Citrobacter. Patient is afebrile. Her WBC on admission is normal. Her creatinine was up to 1.56 on admission. She is currently on Zosyn. Infectious disease consultation has been requested to assist with evaluation and treatment of UTI with E. coli ESBL positive. Notes reviewed Afebrile D/W Dr Cassidy Creatinine up to 1.5 again Refused uro procedure today Last UC negative Repeat US with renal calculi and mild hydro on R; L kidney not visualized Repeat UA, pyuria is better Repeat CT A/P - same hydro R, kidney stones noted, stent in plance Antibiotics: Zosyn Past Medical History: Anemia Atrial fibrillation CAD (coronary artery disease) CVA (cerebral vascular accident) Chronic kidney disease (CKD) Diabetes History of carotid stenosis History of cholelithiasis Hyperlipidemia Hypertension Neurogenic bladder Osteoarthritis Schizophrenia Hip fracture requiring operative repair History of ankle surgery History of coronary artery stent placement History of tonsillectomy S/P percutaneous endoscopic gastrostomy (PEG) tube placement History of hysterectomy (Resolved) Allergies/Adverse Reactions: Allergies *MDRO Multi-Drug Resistant Organism Adverse Reaction (Unknown, Uncoded 11/10/17 06:21) 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 ESBL + E. 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 Objective Vital Signs 08/13/18 16:00 08/13/18 20:00 08/14/18 00:00 Temperature 98.6 F 98.3 F 99 F Pulse Rate 55 L 60 52 L Respiratory Rate 19 16 16 Blood Pressure 145/72 H 128/62 137/62 Pulse Oximetry 99 94 L 95 08/14/18 04:01 08/14/18 07:01 08/14/18 08:00 Temperature 98.1 F Pulse Rate 58 L Respiratory Rate 18 18 18 Blood Pressure 133/61 Pulse Oximetry 93 L 08/14/18 12:00 Temperature 98.1 F Pulse Rate 47 L Respiratory Rate Blood Pressure 177/85 H Pulse Oximetry Intake & Output 08/13/18 08/14/18 08/14/18 18:59 06:59 18:59 Intake Total 1520 / 1520 1200 / 1200 1100 / 1100 Output Total 850 / 850 1120 / 1120 600 / 600 Balance 670 / 670 80 / 80 500 / 500 Weight 84.7 kg Intake: IV 1200 / 1200 1200 / 1200 1100 / 1100 D5W/1/2NS + KCL 20 mEq Inj 1, 1000 / 1000 1000 / 1000 1000 / 1000 000 ML @ 100 mls/hr IV.CONT . Q10H CLAUDE Rx#:[id number] Zosyn 4.5 GM Premix 4.5 gm In 200 / 200 200 / 200 100 / 100 100 ml @ 200 mls/hr IV.SIG Q6H CLAUDE Rx#:[id number] Oral 320 / 320 Output: Urine 1120 / 1120 Urine Amount (Stoma) 850 / 850 600 / 600 Nephrostomy Tube Right 850 / 850 600 / 600 Other: Date of Last Bowel Movement 08/12/18 # Bowel Movements 0 08/10/18 13:10 Clean Catch Urine Urine Culture - Final No growth in 48 hours 08/05/18 18:16 Catheterized Urine Urine Culture - Final Escherichia coli ESBL positive Citrobacter koseri Pseudomonas aeruginosa Multidrug Resistant 08/05/18 18:16 Random Urine Urine Culture - Final Escherichia coli ESBL positive Citrobacter koseri Pseudomonas aeruginosa Multidrug Resistant 08/08/18 13:11 Random Urine Urine Culture - Final Pseudomonas aeruginosa Multidrug Resistant Citrobacter koseri Lab - Hematology Results 08/14/18 07:09 WBC 4.5 RBC 3.61 L Hgb 9.4 L Hct 29.0 L MCV 80.5 MCH 26.0 L MCHC 32.3 RDW 16.5 Plt Count 152 MPV 9.5 Neut % (Auto) 43.6 Lymph % (Auto) 37.4 [place] % (Auto) 6.5 Eos % (Auto) 12.3 H Baso % (Auto) 0.2 Neut # (Auto) 2.0 Lymph # (Auto) 1.7 [place] # (Auto) 0.3 Eos # (Auto) 0.6 H Baso # (Auto) 0.0 WBC Differential . Differential Comment Auto diff final Lab - Chemistry Results 08/12/18 08/12/18 08/13/18 17:36 21:11 08:11 Sodium Potassium Chloride Carbon Dioxide Anion Gap BUN Creatinine Estimated GFR POC Glucose 102 122 H 75 Random Glucose Calcium 08/13/18 08/13/18 08/14/18 16:46 20:10 07:09 Sodium 147 H Potassium 3.6 Chloride 114 H Carbon Dioxide 26.2 Anion Gap 7 BUN 12 Creatinine 1.54 H Estimated GFR 34 L POC Glucose 105 109 Random Glucose 73 L Calcium 8.0 L 08/14/18 08/14/18 08:07 12:19 Sodium Potassium Chloride Carbon Dioxide Anion Gap BUN Creatinine Estimated GFR POC Glucose 86 76 Random Glucose Calcium Imaging: ITS Impressions Chest X-Ray 08/05/18 17:53 CONCLUSION: No obvious airspace disease. Ureterogram 08/06/18 00:00 CONCLUSION: 1. Uncomplicated nephroureteral catheter exchange as above. Abdomen/Bladder Ultrasound 08/08/18 00:00 CONCLUSION: 1. Right-sided ureteral stent with multiple right-sided renal calculi as seen on recent CT. Mild hydronephrosis on the right. Left kidney not visualized. Abdomen/Pelvis CT 08/12/18 00:00 CONCLUSION: 1. Stable appearance to the right renal collecting system dilation, multiple calcified right renal stones, and internal/external drainage catheters. 2. No new findings. Physical Exam: GENERAL: awake and alert, not in respiratory distress. She is following commands, answering some questions SKIN: Cool and dry. No generalized rash EYES: [place] conjunctiva. No petechia or hemorrhage. No scleral icterus. No injection or drainage. Has opacity in R eye EARS, NOSE AND THROAT: Mucous membranes pink and moist. Has poor dentition. D NECK: Trachea midline. Supple and not tender, no meningeal signs CARDIOVASCULAR: Regular rate and rhythm. No murmurs, rubs or gallops heard RESPIRATORY: Clear to auscultation. Breath sounds equal bilaterally. No rales , wheezing or rhonchi ABDOMEN: Distended, healed previous PEG site, min tenderness BACK: R nephrostomy in place, urine with some sediment EXTREMITIES: No clubbing, cyanosis. Both feet plantar flexed, with some mild pedal edema. NEUROLOGICAL: Awake and alert. Decreased nasolabial fold on left. Spastic in LUE; no movement in LLE. PSYCHIATRIC: Awake, calm LINE: No evidence of infection Assessment and Plan - Plan Impression Complicated UTI, has R nephrouereteral stent and nephrostomy - UC E coli ESBL and Citrobacter - initially with severe hydro on CT; US with mild hydro, has R kidney stones - repeat UC with MDR PSAE, Citrobacter Sepsis due to above, better Renal insufficiency, creatinine up again Hx CVA with L sided weakness and aphasia Recommendation Follow repeat UC Continue IV Zosyn Follow creatinine Monitor progress D/W Dr Cassidy
[2018-08-15] MEDS: Methadone 10 MG Tablet PO SCH ×3 (00:37→18:13)
[2018-08-15] MEDS: Piperacil/Tazo 4.5 GM Premix 4.5 GM/100 ML BAG IV.SIG SCH ×4 (02:48→20:12)
[2018-08-15 06:26] LABS: Carbon Dioxide 26.2 meq/L (21.0-32.0); Potassium 3.5 meq/L (3.5-5.1)
[2018-08-15] MEDS: hydrALAZINE 50 MG Tablet PO SCH ×3 (06:33→21:31)
[2018-08-15] MEDS: KCL 20 mEq/D5W/NaCl 0.45% Inj 1,000 ML IV.CONT SCH ×2 (06:33→18:20)
[2018-08-15] MEDS: Insulin NovoLOG Aspart Correctional Sugar Inj SQ SCH ×4 (08:47→20:12)
[2018-08-15] MEDS: Sertraline 50 MG Tablet PO SCH (08:53)
[2018-08-15] MEDS: Metoprolol Tartrate 25 MG Tablet PO SCH ×2 (08:55→20:13)
--- NOTE | 2018-08-15 13:06 | P.PNIM ---
Subjective Interval history: no acute events overnight Physical Exam Vital signs: Vital Signs 08/14/18 16:00 08/14/18 20:00 08/15/18 00:00 Temperature 99.6 F 98.1 F 98.1 F Pulse Rate 50 L 55 L 58 L Respiratory Rate 16 16 16 Blood Pressure 132/60 155/72 H 177/75 H Pulse Oximetry 93 L 95 93 L 08/15/18 04:00 08/15/18 08:00 Temperature 98.6 F 96.7 F L Pulse Rate 55 L 52 L Respiratory Rate 18 14 Blood Pressure 150/69 H 116/62 Pulse Oximetry 95 Intake & Output 08/14/18 08/15/18 08/15/18 18:59 06:59 18:59 Intake Total 1920 / 1920 2440 / 2440 100 / 100 Output Total 1450 / 1450 850 / 850 300 / 300 Balance 470 / 470 1590 / 1590 -200 / -200 Weight 85 kg Intake: IV 1200 / 1200 2200 / 2200 100 / 100 D5W/1/2NS + KCL 20 mEq Inj 1, 1000 / 1000 2000 / 2000 000 ML @ 100 mls/hr IV.CONT . Q10H [facility] Rx#:[id number] Zosyn 4.5 GM Premix 4.5 gm In 200 / 200 200 / 200 100 / 100 100 ml @ 200 mls/hr IV.SIG Q6H [facility] Rx#:[id number] Oral 720 / 720 240 / 240 Output: Urine Amount (Stoma) 1450 / 1450 850 / 850 300 / 300 Nephrostomy Tube Right 1450 / 1450 850 / 850 300 / 300 Other: Date of Last Bowel Movement 08/14/18 # Incontinent Bowel Movements 1 Narrative: GENERAL: Chronically ill-appearing middle-aged female patient in NAD laying in bed. Generalized weakness. HEENT:not pale,anicteric, edentulous CARDIOVASCULAR: Regular rate and rhythm.s1s2 normal, no murmurs. RESPIRATORY: No accessory muscle use. Clear to auscultation. Breath sounds equal bilaterally. GASTROINTESTINAL: Abdomen soft, non-tender, mild distention, few bowel sounds. Old PEG tube site closed without any drainage. Bandage over the area. Nephrostomy tube in place,draining straw colored, covered with dressing. MUSCULOSKELETAL: No obvious deformities. Extremities without clubbing, cyanosis , or edema. NEUROLOGICAL: Awake and alert, oriented to self only. Left-sided hemiplegia with left upper extremity contracture unchanged. Slurred speech, however mostly able to understand, answer simple questions, follows commands. SKIN:erythematous rash on anterior and lateral aspect of lt chest wall under contracted arm,improving. Results Labs CBC & Chem 7: 08/14/18 07:09 08/15/18 05:24 Assessment and Plan Plan 63-year-old female under hospice with a past medical history of CVA with expressive aphasia and left-sided hemiplegia, neurogenic bladder, recurrent UTIs , nephrostomy tube, PEG tube, CKD stage III, anemia, diabetes and hypertension presents to the emergency department from [facility] for evaluation of nephrostomy tube. Right nephrostomy tube malfunction: -S/p right nephrostomy tube replacement by IR on 08/06,now functioning well. Patient also has a rt kidney ureteral stent which is encrusted with stone and is suspected to be the source of recurrent infections.Urology planning for removal on 08/13 if consent obtainable, so far not been able to reach her next of kin. -08/15-still unable to reach patient's NOK for consent. Complicated UTI: ESBL+ E.Coli. Patient also has a rt kidney ureteral stent which is encrusted with stone and is suspected to be the source of recurrent infections.Urology rec removal as above. -Blood cultures with NGTD -08/08 - Urine culture with ESBL+ E.Coli and Citrobacter Koseri, Pseudomonas aeruginosa. Was on IV Ertapenem. urine culture on 08/10 remain negative at 48 hrs. She was switched to Zosyn on 08/11. appreciate IDs recommendations Diabetes mellitus, insulin-dependent: blood glucose controlled. -Continue monitor blood sugar with sliding-scale insulin -Episodes of hypoglycemia while n.p.o. or poor oral intake, continue fluids with D5, will hold Levemir and monitor blood sugar Hypertension, overall controlled: -Continue home clonidine and hydralazine Schizophrenia: -Continue Risperdal and sertraline Chronic kidney disease 3: Cr noted to be elevate to 1.54 this am and hypernatremia noted. She has been on D5W. Seems like this was not running well yesterday. Continue same at 100mls/ hr. -Continue IV fluid hydration -Avoid nephrotoxins. CVA: chronic with left sided hemiplegia and dysphagia -patient on pureed diet with nectar thickened liquids at SNF, per hospice music therapy, will continue -RN or GENERAL REPAIR MECHANIC to assist with all feedings and HOB at >45 degrees -continue home meds DVT Prophylaxis: Teds/SCDs, subcu Discharge Planning: The patient is currently under hospice care at SNF, Nephrostomy tube has been replaced. Progress Note: Quality VTE Deep Vein Thrombosis/Pulmonary Embolism Present on Admission: No
--- NOTE | 2018-08-15 15:14 | P.PNID ---
Subjective Remarks: Patient is a 63-year-old female, with known history of CVA, has aphasia and left -sided hemiplegia, brought into the hospital for further evaluation of her right nephrostomy tube. Patient apparently has been leaking around the site and it is unclear as to how long that has been going on. Her urinalysis on admission did show evidence of pyuria. Low-grade temps [address] of the abdomen and pelvis is showing significant hydronephrosis on the right side. Interventional radiology exchanged her right nephrostomy on August 06. The urine culture is growing E. coli ESBL positive as well as Citrobacter. Patient is afebrile. Her WBC on admission is normal. Her creatinine was up to 1.56 on admission. She is currently on Zosyn. Infectious disease consultation has been requested to assist with evaluation and treatment of UTI with E. coli ESBL positive. Notes reviewed Afebrile Creatinine same 1.5 Last UC negative Repeat US with renal calculi and mild hydro on R; L kidney not visualized Repeat UA, pyuria is better Repeat CT A/P - same hydro R, kidney stones noted, stent in plance Antibiotics: Zosyn Past Medical History: Anemia Atrial fibrillation CAD (coronary artery disease) CVA (cerebral vascular accident) Chronic kidney disease (CKD) Diabetes History of carotid stenosis History of cholelithiasis Hyperlipidemia Hypertension Neurogenic bladder Osteoarthritis Schizophrenia Hip fracture requiring operative repair History of ankle surgery History of coronary artery stent placement History of tonsillectomy S/P percutaneous endoscopic gastrostomy (PEG) tube placement History of hysterectomy (Resolved) Allergies/Adverse Reactions: Allergies *MDRO Multi-Drug Resistant Organism Adverse Reaction (Unknown, Uncoded 11/10/17 06:21) 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 ESBL + E. 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 Objective Vital Signs 08/14/18 16:00 08/14/18 20:00 08/15/18 00:00 Temperature 99.6 F 98.1 F 98.1 F Pulse Rate 50 L 55 L 58 L Respiratory Rate 16 16 16 Blood Pressure 132/60 155/72 H 177/75 H Pulse Oximetry 93 L 95 93 L 08/15/18 04:00 08/15/18 08:00 Temperature 98.6 F 96.7 F L Pulse Rate 55 L 52 L Respiratory Rate 18 14 Blood Pressure 150/69 H 116/62 Pulse Oximetry 95 Intake & Output 08/14/18 08/15/18 08/15/18 18:59 06:59 18:59 Intake Total 1920 / 1920 2440 / 2440 100 / 100 Output Total 1450 / 1450 850 / 850 700 / 700 Balance 470 / 470 1590 / 1590 -600 / -600 Weight 85 kg Intake: IV 1200 / 1200 2200 / 2200 100 / 100 D5W/1/2NS + KCL 20 mEq Inj 1, 1000 / 1000 2000 / 2000 000 ML @ 100 mls/hr IV.CONT . Q10H [facility] Rx#:[id number] Zosyn 4.5 GM Premix 4.5 gm In 200 / 200 200 / 200 100 / 100 100 ml @ 200 mls/hr IV.SIG Q6H [facility] Rx#:[id number] Oral 720 / 720 240 / 240 Output: Urine Amount (Stoma) 1450 / 1450 850 / 850 700 / 700 Nephrostomy Tube Right 1450 / 1450 850 / 850 700 / 700 Other: Date of Last Bowel Movement 08/14/18 # Incontinent Bowel Movements 1 08/10/18 13:10 Clean Catch Urine Urine Culture - Final No growth in 48 hours Lab - Hematology Results 08/14/18 07:09 WBC 4.5 RBC 3.61 L Hgb 9.4 L Hct 29.0 L MCV 80.5 MCH 26.0 L MCHC 32.3 RDW 16.5 Plt Count 152 MPV 9.5 Neut % (Auto) 43.6 Lymph % (Auto) 37.4 [place] % (Auto) 6.5 Eos % (Auto) 12.3 H Baso % (Auto) 0.2 Neut # (Auto) 2.0 Lymph # (Auto) 1.7 [place] # (Auto) 0.3 Eos # (Auto) 0.6 H Baso # (Auto) 0.0 WBC Differential . Differential Comment Auto diff final Lab - Chemistry Results 08/13/18 08/13/18 08/14/18 16:46 20:10 07:09 Sodium 147 H Potassium 3.6 Chloride 114 H Carbon Dioxide 26.2 Anion Gap 7 BUN 12 Creatinine 1.54 H Estimated GFR 34 L POC Glucose 105 109 Random Glucose 73 L Calcium 8.0 L 08/14/18 08/14/18 08/14/18 08:07 12:19 16:21 Sodium Potassium Chloride Carbon Dioxide Anion Gap BUN Creatinine Estimated GFR POC Glucose 86 76 114 H Random Glucose Calcium 08/14/18 08/15/18 08/15/18 20:46 05:24 07:48 Sodium 145 Potassium 3.5 Chloride 112 H Carbon Dioxide 26.2 Anion Gap 7 BUN 13 Creatinine 1.52 H Estimated GFR 34 L POC Glucose 98 86 Random Glucose 78 Calcium 8.0 L 08/15/18 11:34 Sodium Potassium Chloride Carbon Dioxide Anion Gap BUN Creatinine Estimated GFR POC Glucose 92 Random Glucose Calcium Imaging: ITS Impressions Chest X-Ray 08/05/18 17:53 CONCLUSION: No obvious airspace disease. Ureterogram 08/06/18 00:00 CONCLUSION: 1. Uncomplicated nephroureteral catheter exchange as above. Abdomen/Bladder Ultrasound 08/08/18 00:00 CONCLUSION: 1. Right-sided ureteral stent with multiple right-sided renal calculi as seen on recent CT. Mild hydronephrosis on the right. Left kidney not visualized. Abdomen/Pelvis CT 08/12/18 00:00 CONCLUSION: 1. Stable appearance to the right renal collecting system dilation, multiple calcified right renal stones, and internal/external drainage catheters. 2. No new findings. Physical Exam: GENERAL: awake and alert, NAD. She is following commands, answering some questions SKIN: Cool and dry. No generalized rash EYES: [place] conjunctiva. No petechia or hemorrhage. No scleral icterus. No injection or drainage. Has opacity in R eye EARS, NOSE AND THROAT: Mucous membranes pink and moist. Has poor dentition. D NECK: Trachea midline. Supple and not tender, no meningeal signs CARDIOVASCULAR: Regular rate and rhythm. No murmurs, rubs or gallops heard RESPIRATORY: Clear to auscultation. Breath sounds equal bilaterally. No rales , wheezing or rhonchi ABDOMEN: Distended, healed previous PEG site, min tenderness BACK: R nephrostomy in place, urine with some sediment EXTREMITIES: No clubbing, cyanosis. Both feet plantar flexed, with some mild pedal edema. NEUROLOGICAL: Awake and alert. Decreased nasolabial fold on left. Spastic in LUE; no movement in LLE. PSYCHIATRIC: Awake, calm LINE: No evidence of infection Assessment and Plan - Plan Impression Complicated UTI, has R nephrouereteral stent and nephrostomy - UC E coli ESBL and Citrobacter - initially with severe hydro on CT; US with mild hydro, has R kidney stones - repeat UC with MDR PSAE, Citrobacter Sepsis due to above, better Renal insufficiency, creatinine up again Hx CVA with L sided weakness and aphasia Recommendation Continue IV Zosyn, ?14 days after stent removed Still tryiing to get family to get consent for procedure Maybe difficult to treat infection due to all the crusting around her stent Follow creatinine Monitor progress I will be OOT 08/16-08/24 Other ID MD covering in my absence
[2018-08-16] MEDS: Methadone 10 MG Tablet PO SCH ×3 (01:01→15:01)
[2018-08-16] MEDS: Piperacil/Tazo 4.5 GM Premix 4.5 GM/100 ML BAG IV.SIG SCH ×4 (02:32→23:50)
[2018-08-16] MEDS: hydrALAZINE 50 MG Tablet PO SCH ×3 (06:14→23:49)
[2018-08-16] MEDS: KCL 20 mEq/D5W/NaCl 0.45% Inj 1,000 ML IV.CONT SCH ×4 (06:15→23:59)
[2018-08-16 08:26] LABS: Calcium 8.2 mg/dL (8.5-10.1); Carbon Dioxide 23.8 meq/L (21.0-32.0); Potassium 3.6 meq/L (3.5-5.1)
[2018-08-16] MEDS: Sertraline 50 MG Tablet PO SCH (09:12)
[2018-08-16] MEDS: Metoprolol Tartrate 25 MG Tablet PO SCH ×2 (09:12→23:50)
[2018-08-16] MEDS: Insulin NovoLOG Aspart Correctional Sugar Inj SQ SCH ×4 (09:12→23:55)
--- NOTE | 2018-08-16 13:38 | P.PNIM ---
Subjective Interval history: No acute events overnight. patient c/o pain in both her feet. asking when her surgery shall happen. Physical Exam Vital signs: Vital Signs 08/15/18 20:00 08/16/18 00:00 08/16/18 08:00 Temperature 98.1 F 98.3 F 97.8 F Pulse Rate 56 L 56 L 60 Respiratory Rate Blood Pressure 158/67 H 153/67 H 166/70 H Pulse Oximetry 94 L 93 L 95 Intake & Output 08/15/18 08/16/18 08/16/18 18:59 06:59 18:59 Intake Total 1100 / 1100 1540 / 1540 100 / 100 Output Total 1150 / 1150 1050 / 1050 400 / 400 Balance -50 / -50 490 / 490 -300 / -300 Weight 87.3 kg Intake: IV 1100 / 1100 1300 / 1300 100 / 100 D5W/1/2NS + KCL 20 mEq Inj 1, 1000 / 1000 1000 / 1000 000 ML @ 100 mls/hr IV.CONT . Q10H [facility] Rx#:[id number] Zosyn 4.5 GM Premix 4.5 gm In 100 / 100 300 / 300 100 / 100 100 ml @ 200 mls/hr IV.SIG Q6H [facility] Rx#:[id number] Oral 240 / 240 Output: Urine Amount (Stoma) 1150 / 1150 1050 / 1050 400 / 400 Nephrostomy Tube Right 1150 / 1150 1050 / 1050 400 / 400 Other: Date of Last Bowel Movement 08/14/18 08/16/18 # Bowel Movements 1 Narrative: GENERAL: Chronically ill-appearing middle-aged female patient in NAD laying in bed. Generalized weakness. HEENT:not pale,anicteric, edentulous CARDIOVASCULAR: Regular rate and rhythm.s1s2 normal, no murmurs. RESPIRATORY: No accessory muscle use. Clear to auscultation. Breath sounds equal bilaterally. GASTROINTESTINAL: Abdomen soft, non-tender, mild distention, few bowel sounds. Old PEG tube site closed without any drainage. Bandage over the area. Nephrostomy tube in place,draining straw colored, covered with dressing. MUSCULOSKELETAL: No obvious deformities. Extremities without clubbing, cyanosis , or edema. NEUROLOGICAL: Awake and alert, oriented to self only. Left-sided hemiplegia with left upper extremity contracture unchanged. Slurred speech, however mostly able to understand, answer simple questions, follows commands. SKIN:erythematous rash on anterior and lateral aspect of lt chest wall under contracted arm,improving. Results Labs CBC & Chem 7: 08/14/18 07:09 08/16/18 06:59 Assessment and Plan Plan 63-year-old female under hospice with a past medical history of CVA with expressive aphasia and left-sided hemiplegia, neurogenic bladder, recurrent UTIs , nephrostomy tube, PEG tube, CKD stage III, anemia, diabetes and hypertension presents to the emergency department from [facility] for evaluation of nephrostomy tube. Right nephrostomy tube malfunction: -S/p right nephrostomy tube replacement by IR on 08/06,now functioning well. Patient also has a rt kidney ureteral stent which is encrusted with stone and is suspected to be the source of recurrent infections.Urology planning for removal on 08/13 if consent obtainable, so far not been able to reach her next of kin. 08/16-patient's son apparently consented for surgery evening. Nurse reports urology planning for surgery on Saturday. Complicated UTI: ESBL+ E.Coli. Patient also has a rt kidney ureteral stent which is encrusted with stone and is suspected to be the source of recurrent infections.Urology rec removal as above. -Blood cultures with NGTD -08/08 - Urine culture with ESBL+ E.Coli and Citrobacter Koseri, Pseudomonas aeruginosa. Was on IV Ertapenem. urine culture on 08/10 remain negative at 48 hrs. She was switched to Zosyn on 08/11. appreciate IDs recommendations Diabetes mellitus, insulin-dependent: blood glucose controlled. -Continue monitor blood sugar with sliding-scale insulin -Episodes of hypoglycemia while n.p.o. or poor oral intake, continue fluids with D5, will hold Levemir and monitor blood sugar Hypertension, overall controlled: -Continue home clonidine and hydralazine Schizophrenia: -Continue Risperdal and sertraline Chronic kidney disease stage III: Cr 1.38 Continue same at 100mls/hr. -Continue IV fluid hydration -Avoid nephrotoxins. CVA: chronic with left sided hemiplegia and dysphagia -patient on pureed diet with nectar thickened liquids at SNF, per hospice administrator, will continue -RN or NURSE RECEPTIONIST to assist with all feedings and HOB at >45 degrees -continue home meds DVT Prophylaxis: Teds/SCDs, subcut Progress Note: Quality VTE Deep Vein Thrombosis/Pulmonary Embolism Present on Admission: No
[2018-08-17] MEDS: Methadone 10 MG Tablet PO SCH ×4 (00:52→23:12)
[2018-08-17] MEDS: Piperacil/Tazo 4.5 GM Premix 4.5 GM/100 ML BAG IV.SIG SCH ×4 (03:29→21:26)
[2018-08-17] MEDS: KCL 20 mEq/D5W/NaCl 0.45% Inj 1,000 ML IV.CONT SCH ×2 (03:30→15:25)
[2018-08-17] MEDS: hydrALAZINE 50 MG Tablet PO SCH ×3 (06:43→21:29)
[2018-08-17 08:49] LABS: Calcium 8.2 mg/dL (8.5-10.1); Carbon Dioxide 26.2 meq/L (21.0-32.0); Potassium 3.4 meq/L (3.5-5.1)
[2018-08-17] MEDS: Insulin NovoLOG Aspart Correctional Sugar Inj SQ SCH ×4 (08:51→23:18)
[2018-08-17] MEDS: Sertraline 50 MG Tablet PO SCH (08:51)
[2018-08-17] MEDS: Metoprolol Tartrate 25 MG Tablet PO SCH ×2 (08:51→21:29)
[2018-08-17] MEDS: Morphine Sulfate Inj 2 MG/ML Vial IV.PUSH PRN (08:52)
--- NOTE | 2018-08-17 10:13 | P.PNIM ---
Subjective Interval history: patient reports pain in her legs and also in her belly this morning. Physical Exam Vital signs: Vital Signs 08/16/18 12:00 08/16/18 16:00 08/16/18 20:00 Temperature 97.8 F 97.7 F 98.6 F Pulse Rate 61 60 54 L Respiratory Rate 17 16 18 Blood Pressure 191/84 H 173/79 H 168/78 H Pulse Oximetry 95 99 95 08/17/18 00:00 08/17/18 08:00 Temperature 98.7 F 98.1 F Pulse Rate 61 51 L Respiratory Rate 18 17 Blood Pressure 130/69 191/80 H Pulse Oximetry 94 L 97 Intake & Output 08/16/18 08/17/18 08/17/18 18:59 06:59 18:59 Intake Total 1150 / 1150 1920 / 1920 Output Total 400 / 400 2450 / 2450 300 / 300 Balance 750 / 750 -530 / -530 -300 / -300 Weight 87.4 kg Intake: IV 1150 / 1150 1200 / 1200 D5W/1/2NS + KCL 20 mEq Inj 1, 950 / 950 1000 / 1000 000 ML @ 100 mls/hr IV.CONT . Q10H [facility] Rx#:[id number] Zosyn 4.5 GM Premix 4.5 gm In 200 / 200 200 / 200 100 ml @ 200 mls/hr IV.SIG Q6H [facility] Rx#:[id number] Oral 720 / 720 Output: Urine Amount (Stoma) 400 / 400 2450 / 2450 300 / 300 Nephrostomy Tube Right 400 / 400 2450 / 2450 300 / 300 Other: Date of Last Bowel Movement 08/16/18 # Bowel Movements 1 Narrative: GENERAL: Chronically ill-appearing middle-aged female patient in NAD laying in bed. Generalized weakness. HEENT:not pale,anicteric, edentulous CARDIOVASCULAR: Regular rate and rhythm.s1s2 normal, no murmurs. RESPIRATORY: No accessory muscle use. Clear to auscultation. Breath sounds equal bilaterally. GASTROINTESTINAL: Abdomen soft, non-tender, mild distention, few bowel sounds. Old PEG tube site closed without any drainage. Bandage over the area. Nephrostomy tube in place,draining straw colored, covered with dressing. MUSCULOSKELETAL: Lt arm contracted. NEUROLOGICAL: Awake and alert, oriented to self only. Left-sided hemiplegia with left upper extremity contracture unchanged. Slurred speech, however mostly able to understand, answers simple questions, follows commands. SKIN:erythematous rash on anterior and lateral aspect of lt chest wall under contracted arm,improving. Results Labs CBC & Chem 7: 08/14/18 07:09 08/17/18 07:36 Assessment and Plan Plan 63-year-old female under hospice with a past medical history of CVA with expressive aphasia and left-sided hemiplegia, neurogenic bladder, recurrent UTIs , nephrostomy tube, PEG tube, CKD stage III, anemia, diabetes and hypertension presents to the emergency department from [facility] for evaluation of nephrostomy tube. Right nephrostomy tube malfunction: -S/p right nephrostomy tube replacement by IR on 08/06,now functioning well. Patient also has a rt kidney ureteral stent which is encrusted with stone and is suspected to be the source of recurrent infections.Urology planning for removal on 08/13 if consent obtainable, so far not been able to reach her next of kin. 08/16-patient's son apparently consented for surgery evening. Nurse reports urology planning for surgery on Saturday. 08/17-patient having pain in abdo and legs. no calf tenderness. ordered one time morphine, will re-evaluate. Complicated UTI: ESBL+ E.Coli. Patient also has a rt kidney ureteral stent which is encrusted with stone and is suspected to be the source of recurrent infections.Urology rec removal as above. -Blood cultures with NGTD -08/08 - Urine culture with ESBL+ E.Coli and Citrobacter Koseri, Pseudomonas aeruginosa. Was on IV Ertapenem. urine culture on 08/10 remain negative at 48 hrs. She was switched to Zosyn on 08/11. appreciate IDs recommendations Diabetes mellitus, insulin-dependent: blood glucose controlled. -Continue monitor blood sugar with sliding-scale insulin -Episodes of hypoglycemia while n.p.o. or poor oral intake, continue fluids with D5, will hold Levemir and monitor blood sugar Hypertension, overall controlled: -Continue home clonidine and hydralazine Schizophrenia: -Continue Risperdal and sertraline Chronic kidney disease stage III: Cr 1.38 Continue same at 100mls/hr. -Continue IV fluid hydration -Avoid nephrotoxins. CVA: chronic with left sided hemiplegia and dysphagia -patient on pureed diet with nectar thickened liquids at SNF, per hospice director, will continue -RN or CURRICULUM COACH to assist with all feedings and HOB at >45 degrees -continue home meds DVT Prophylaxis: Teds/SCDs, subcut Progress Note: Quality VTE Deep Vein Thrombosis/Pulmonary Embolism Present on Admission: No
[2018-08-17] MEDS ORDERED: Morphine Sulfate Inj 2 MG/ML Vial IV.PUSH ONE (10:45)
[2018-08-17] MEDS: Heparin - SQ 10,000 UNITS/ML Vial SQ SCH ×2 (13:34→21:28)
[2018-08-18] MEDS: Piperacil/Tazo 4.5 GM Premix 4.5 GM/100 ML BAG IV.SIG SCH ×4 (02:38→21:43)
[2018-08-18] MEDS: KCL 20 mEq/D5W/NaCl 0.45% Inj 1,000 ML IV.CONT SCH ×3 (02:40→13:55)
[2018-08-18] MEDS: Morphine Sulfate Inj 2 MG/ML Vial IV.PUSH PRN ×2 (02:49→12:30)
[2018-08-18] MEDS ORDERED: Sodium Chlor 0.9% Inj 500 ML IV.CONT ONE (04:30)
[2018-08-18] MEDS ORDERED: Chlorhexidine Gluconate 2% 1 Pack (2 Cloths) TOPICAL ONE (04:30)
[2018-08-18] MEDS: hydrALAZINE 50 MG Tablet PO SCH ×3 (05:25→21:43)
[2018-08-18] MEDS: Heparin - SQ 10,000 UNITS/ML Vial SQ SCH (05:25)
[2018-08-18 07:21] LABS: Baso % (Auto) 0.9 % (0.0-2.0); Eos # (Auto) 0.6 th/mm3 (0.0-0.4); Hematocrit 31.6 % (35.0-46.0); Hemoglobin 10.3 gm/dL (11.6-15.3); Lymph # (Auto) 1.5 th/mm3 (1.0-4.8); Mean Corpuscular HGB Conc 32.6 % (32.0-36.0); Mean Corpuscular Hemoglobin 26.5 pg (27.0-34.0); Mean Corpuscular Volume 81.3 fL (80.0-100.0); Mean Platelet Volume 10.2 fL (7.0-11.0); Mono # (Auto) 0.3 th/mm3 (0.0-0.9); Mono % (Auto) 6.7 % (0.0-8.0); Neut # (Auto) 2.2 th/mm3 (1.8-7.7); Neut % (Auto) 48.4 % (16.0-70.0); Platelet Count 150 th/mm3 (150-450); Red Blood Count 3.89 mil/mm3 (4.00-5.30); White Blood Count 4.6 th/mm3 (4.0-11.0)
[2018-08-18 08:08] LABS: Calcium 8.4 mg/dL (8.5-10.1); Carbon Dioxide 27.3 meq/L (21.0-32.0); Potassium 3.4 meq/L (3.5-5.1)
--- NOTE | 2018-08-18 08:54 | P.PNURO ---
Subjective Patient symptoms today: Pt seen and examined. No complaints. Objective Vital Signs: Vital Signs 08/17/18 12:00 08/17/18 16:00 08/17/18 20:00 Temperature 97.9 F 97.6 F 98.1 F Pulse Rate 60 60 56 L Respiratory Rate 19 18 18 Blood Pressure 173/75 H 188/84 H 183/85 H Pulse Oximetry 100 95 95 08/17/18 23:45 08/18/18 00:00 Temperature 98.1 F Pulse Rate 49 L Respiratory Rate 18 17 Blood Pressure 169/73 H Pulse Oximetry 95 Intake & Output 08/17/18 08/18/18 08/18/18 18:59 06:59 18:59 Intake Total 1357 / 1357 1386 / 1386 Output Total 550 / 550 775 / 775 Balance 807 / 807 611 / 611 Weight 86.9 kg Intake: IV 1357 / 1357 1266 / 1266 D5W/1/2NS + KCL 20 mEq Inj 1, 1157 / 1157 1066 / 1066 000 ML @ 100 mls/hr IV.CONT . Q10H [facility] Rx#:[id number] Zosyn 4.5 GM Premix 4.5 gm In 200 / 200 200 / 200 100 ml @ 200 mls/hr IV.SIG Q6H [facility] Rx#:[id number] Oral 120 / 120 Output: Urine Amount (Stoma) 550 / 550 775 / 775 Nephrostomy Tube Right 550 / 550 775 / 775 Other: Date of Last Bowel Movement 08/17/18 08/17/18 Result Diagrams: 08/18/18 05:25 08/18/18 05:25 Medications and IVs: Active Medications Generic Name Dose Route Start Last Admin Trade Name Freq PRN Reason Stop Dose Admin Acetaminophen 650 mg 08/08/18 13:34 Tylenol PO Q4H PRN headache/fever/pain1-5 Al Hydroxide/Mg Hydroxide 30 ml 08/05/18 21:56 Milk Of Magnesia Liq PO Q12H PRN Mild Constipation Bisacodyl 10 mg 08/05/18 21:56 Dulcolax Supp RECTAL DAILY PRN SEVERE CONSITIPATION Clonidine HCl 0.1 mg 08/07/18 08:08 08/17/18 08:51 Catapres PO 0.1 mg Q8H PRN Administration SBP >160 or DPB >100 Dextrose 50 ml 08/05/18 22:00 D50w Vial IV.PUSH UNSCH PRN PER HYPOGLYCEMIA PROTOCOL Glucagon 1 mg 08/05/18 22:00 08/06/18 14:36 Glucagon Inj OTHER 1 mg PRN PRN Administration for Hypoglycemia Protocol Hydralazine HCl 50 mg 08/07/18 14:00 08/18/18 05:25 Apresoline PO 50 mg Q8HR [facility] Administration Piperacillin/Tazobactam/Dextrose 4.5 gm in 100 mls @ 200 mls/hr 08/11/18 15: 00 08/18/18 03:10 Zosyn 4.5 Gm Premix IV.SIG Infused Q6H [facility] Infusion Lactated Ringer's 1,000 mls @ 30 mls/hr 08/18/18 04:30 Lr 1000 Ml Inj IV.CONT 08/19/18 04:29 .Q24H ONE Sodium Chloride 500 mls @ 30 mls/hr 08/18/18 04:30 Ns Inj IV.CONT 08/18/18 21:09 .[id number] ONE Potassium Chloride/Dextrose/Sod Cl 1,000 mls @ 100 mls/hr 08/06/18 12:00 05:31 D5w/1/2ns + Kcl 20 Meq Inj IV.CONT 100 mls/hr .Q10H [facility] Infusion Insulin Aspart 0 unit 08/06/18 08:00 08/17/18 23:18 Novolog Insulin Correctional Sugar Inj SQ Not Given ACHS [facility] Protocol Insulin Detemir 5 unit 08/06/18 09:00 08/09/18 10:19 Levemir Inj SQ 5 unit BID [facility] Administration Isosorbide Dinitrate 20 mg 08/07/18 14:00 08/18/18 05:25 Isordil PO 20 mg Q8HR [facility] Administration Lorazepam 0.5 mg 08/07/18 08:08 08/12/18 21:09 Ativan PO 0.5 mg Q4H PRN Administration Anxiety Methadone HCl 5 mg 08/05/18 23:15 08/17/18 23:12 Dolophine PO 5 mg Q8H [facility] Administration Metoprolol Tartrate 25 mg 08/07/18 09:00 08/17/18 21:29 Lopressor PO 25 mg BID [facility] Administration Morphine Sulfate 2 mg 08/09/18 11:36 08/18/18 02:49 Morphine Inj IV.PUSH 2 mg Q4H PRN Administration PAIN SCALE 6 TO 10 Ondansetron HCl 4 mg 08/05/18 21:56 Zofran Inj IV.PUSH Q6H PRN NAUSEA OR VOMITING Risperidone 0.5 mg 08/07/18 09:00 08/17/18 17:55 Risperdal PO 0.5 mg TID [facility] Administration Sennosides 17.2 mg 08/05/18 21:56 Senokot PO Q12H PRN Moderate Constipation Sertraline HCl 50 mg 08/07/18 09:00 08/17/18 08:51 Zoloft PO 50 mg DAILY [facility] Administration Sodium Chloride 2 ml 08/06/18 09:00 08/17/18 21:29 Ns Flush IV.FLUSH Not Given BID [facility] Sodium Chloride 2 ml 08/05/18 21:56 Ns Flush IV.FLUSH PRN PRN FLUSH AFTER USING IV ACCESS Objective Remarks: Abd:soft,nt,nd PCNT: urine clear. 08/13 Abd:soft,nt,nd PCNT: urine clear. 08/14 Abd:soft,nt,nd PCNT: urine clear 08/15 Abd:soft,nt,nd PCNT: urine clear Assessment and Plan - Plan 08/12 63 y.o male with encrusted stent with bladder stone with complicated UTI. PT s/ p Nephroureteral stent change. Encrusted JJ stent is present beside nephroureteral stent with bladder attached to stent in bladder. Encrusted stent will need to be removed in the future after her UTI has cleared. This will help reduce future UTI's. Will need to d/w family. 08/13 63 y.o female with encrusted right ureteral stent with bladder stone. Stent needs to be removed as she has a PCNT with nephroureteral stent in place which was recently changed and is patent. Pt will continue to get complicated UTI's as long as encrusted stent is in place. Will plan of cysto with laser of bladder stone of encrusted stent with removal of stent in OR tomorrow as long as she is cleared by medicine and family agrees. 08/14 63-year-old female with encrusted right ureteral stent with bladder calculus. Multiple attempts were made to contact the son by both myself and the staff and this was unsuccessful. The patient explained at length that surgery was recommended to remove her stent and she has refused. Would recommend change of her nephrostomy tube in approximately 3 months as an outpatient by interventional radiology. 08/15 63-year-old female with encrusted right ureteral stent with bladder calculus. Family contacted. Will plan for cysto; cytolithopaxy with left URS and laser lithotripsy with stent removal tomorrow.
[2018-08-18] MEDS: Sertraline 50 MG Tablet PO SCH (12:07)
[2018-08-18] MEDS: Insulin NovoLOG Aspart Correctional Sugar Inj SQ SCH ×4 (12:07→21:43)
[2018-08-18] MEDS: Metoprolol Tartrate 25 MG Tablet PO SCH ×2 (12:07→21:38)
[2018-08-18] MEDS: Methadone 10 MG Tablet PO SCH ×3 (12:07→22:49)
--- NOTE | 2018-08-18 12:21 | P.PNIM ---
Subjective Interval history: no new complaints. No acute events overnight. Physical Exam Vital signs: Vital Signs 08/17/18 16:00 08/17/18 20:00 08/17/18 23:45 Temperature 97.6 F 98.1 F Pulse Rate 60 56 L Respiratory Rate 18 18 18 Blood Pressure 188/84 H 183/85 H Pulse Oximetry 95 95 08/18/18 00:00 08/18/18 08:00 Temperature 98.1 F 97.5 F L Pulse Rate 49 L 56 L Respiratory Rate 17 16 Blood Pressure 169/73 H 140/64 Pulse Oximetry 95 95 Intake & Output 08/17/18 08/18/18 08/18/18 18:59 06:59 18:59 Intake Total 1357 / 1357 1386 / 1386 Output Total 550 / 550 775 / 775 Balance 807 / 807 611 / 611 Weight 86.9 kg Intake: IV 1357 / 1357 1266 / 1266 D5W/1/2NS + KCL 20 mEq Inj 1, 1157 / 1157 1066 / 1066 000 ML @ 100 mls/hr IV.CONT . Q10H [facility] Rx#:[id number] Zosyn 4.5 GM Premix 4.5 gm In 200 / 200 200 / 200 100 ml @ 200 mls/hr IV.SIG Q6H [facility] Rx#:[id number] Oral 120 / 120 Output: Urine Amount (Stoma) 550 / 550 775 / 775 Nephrostomy Tube Right 550 / 550 775 / 775 Other: Date of Last Bowel Movement 08/17/18 08/17/18 Narrative: GENERAL: Chronically ill-appearing middle-aged female patient in NAD laying in bed. Generalized weakness. HEENT:not pale,anicteric, edentulous CARDIOVASCULAR: Regular rate and rhythm.s1s2 normal, no murmurs. RESPIRATORY: No accessory muscle use. Clear to auscultation. Breath sounds equal bilaterally. GASTROINTESTINAL: Abdomen soft, non-tender, mild distention, few bowel sounds. Old PEG tube site closed without any drainage. Bandage over the area. Nephrostomy tube in place,draining straw colored, covered with dressing. MUSCULOSKELETAL: Lt arm contracted. NEUROLOGICAL: Awake and alert, oriented to self only. Left-sided hemiplegia with left upper extremity contracture unchanged. Slurred speech, however mostly able to understand, answers simple questions, follows commands. SKIN:erythematous rash on anterior and lateral aspect of lt chest wall under contracted arm,improving. 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 Right nephrostomy tube malfunction: -S/p right nephrostomy tube replacement by IR on 08/06,now functioning well. Patient also has a rt kidney ureteral stent which is encrusted with stone and is suspected to be the source of recurrent infections.Urology planning for removal on 08/13 if consent obtainable, so far not been able to reach her next of kin. patient's son apparently consented for surgery evening of 08/16. Urology planning for surgery on 08/19. Complicated UTI: ESBL+ E.Coli. Patient also has a rt kidney ureteral stent which is encrusted with stone and is suspected to be the source of recurrent infections.Urology rec removal as above. -Blood cultures with NGTD -08/08 - Urine culture with ESBL+ E.Coli and Citrobacter Koseri, Pseudomonas aeruginosa. Was on IV Ertapenem. urine culture on 08/10 remain negative at 48 hrs. She was switched to Zosyn on 08/11. appreciate IDs recommendations Diabetes mellitus, insulin-dependent: blood glucose controlled. -Continue monitor blood sugar with sliding-scale insulin -Episodes of hypoglycemia while n.p.o. or poor oral intake, continue fluids with D5, will hold Levemir and monitor blood sugar Hypertension, overall controlled: -Continue home clonidine and hydralazine Schizophrenia: -Continue Risperdal and sertraline Chronic kidney disease stage III: Cr 1.33 -Continue IV fluid hydration -Avoid nephrotoxins. CVA: chronic with left sided hemiplegia and dysphagia -patient on pureed diet with nectar thickened liquids at SNF, per furnace helper, will continue -RN or PRODUCTION CHECKER to assist with all feedings and HOB at >45 degrees -continue home meds DVT Prophylaxis: Teds/SCDs, subcut Progress Note: Quality VTE Deep Vein Thrombosis/Pulmonary Embolism Present on Admission: No
[2018-08-19] MEDS: KCL 20 mEq/D5W/NaCl 0.45% Inj 1,000 ML IV.CONT SCH ×3 (00:51→20:36)
[2018-08-19] MEDS: Morphine Sulfate Inj 2 MG/ML Vial IV.PUSH PRN ×2 (01:51→22:31)
[2018-08-19] MEDS: Piperacil/Tazo 4.5 GM Premix 4.5 GM/100 ML BAG IV.SIG SCH ×4 (02:29→20:33)
[2018-08-19] MEDS: Methadone 10 MG Tablet PO SCH ×4 (05:48→22:31)
[2018-08-19] MEDS: hydrALAZINE 50 MG Tablet PO SCH ×3 (05:48→22:31)
--- NOTE | 2018-08-19 09:51 | P.PNIM ---
Subjective Interval history: Patient laying down in bed. Says she had a bowel movement last night. She has slurred speech and is difficult to understand however is following my commands and answering my questions appropriately. Physical Exam Vital signs: Vital Signs 08/18/18 12:00 08/18/18 16:00 08/18/18 20:00 Temperature 97.8 F 97 F L 97.6 F Pulse Rate 56 L 51 L 48 L Respiratory Rate 16 16 18 Blood Pressure 212/95 H 219/93 H 140/62 Pulse Oximetry 97 96 93 L 08/19/18 00:00 08/19/18 04:00 08/19/18 08:00 Temperature 98.0 F 97 F L Pulse Rate 52 L 51 L 47 L Respiratory Rate 18 15 Blood Pressure 202/87 H 179/82 H 129/83 Pulse Oximetry 97 100 Intake & Output 08/18/18 08/19/18 08/19/18 18:59 06:59 18:59 Intake Total 877 / 877 1600 / 1600 Output Total 950 / 950 725 / 725 Balance -73 / -73 875 / 875 Weight 86.9 kg Intake: IV 877 / 877 1200 / 1200 D5W/1/2NS + KCL 20 mEq Inj 1, 777 / 777 1000 / 1000 000 ML @ 100 mls/hr IV.CONT . Q10H [facility] Rx#:[id number] Zosyn 4.5 GM Premix 4.5 gm In 100 / 100 200 / 200 100 ml @ 200 mls/hr IV.SIG Q6H [facility] Rx#:[id number] Oral 400 / 400 Output: Urine Amount (Stoma) 950 / 950 725 / 725 Nephrostomy Tube Right 950 / 950 725 / 725 Other: # Incontinent Voids 2 Date of Last Bowel Movement 08/17/18 08/18/18 Narrative: Alert and Awake S1S2 CTA b/l Right nephrostomy tube in place draining yellow urine Abd soft, normal bowel sounds 2+ pitting edema of the lower exts Patient has left sided hemiplegia, slurred speech Results Labs CBC & Chem 7: 08/18/18 05:25 08/18/18 05:25 Assessment and Plan Plan This patient is a 63 y/o F under hospice with a pmh of CVA with expressive aphasia and left sided hemiplegia, neurogenic bladder, recurrent UTIs, nephrostomy tube, PEG tube, CKD stage III, anemia, DM, and HTN. Patient presented to the ER from [facility] for evaluation of malfunctioning nephrostomy tube. The nephrostomy tube was replaced and now there is a concern that the ureteral stent is encrusted with a stone and causing recurrent UTIs. 1. Right nephrostomy tube malfunction S/p right nephrostomy tube replacement by IR on 08/06. Now functioning well. Right kidney ureteral stent which is encrusted with a stone and causing recurrent infections. Plan is for for removal of the stent today. Will follow up with urology. 2. Complicated UTI ESBL + E coli. Right ureteral stent encrusted with stone likely the cause. Blood cxs are negative Urine cxs ESBL E coli, citrobacter koseri, pseudomonas aeroginosa. Currently patient is on zosyn as per ID recs, continue 2 weeks tx after stent removal. 3. Insulin Dependent DM Low dose insulin slding scale Basal insulin held due to episodes of hypoglycemia Blood sugars between 80-149. 4. HTN Elevated blood pressure overnight documented, reviewing the chart Currently sbp is around 129. I asked the nurse to recheck the blood pressure. If elevated will increase the dose of hydralazine and possibly add another agent. Patient is bradycardic occasionally in the low 50s, asymptomatic. BB with holding parameters, will monitor and change meds if needed. 5. Schizophrenia Continue risperdal and sertraline 6. CKD Stage III Avoid nephrotoxic agents. Cr. 1.3 as of yesteray. F/u am labs. 7. Hx of CVA Left sided hemiplegia and dysphagia On pureed diet with nectar thickened liquids. Assist with feedings with HOB greater than 45 degrees Continue aspirin. SCDs for dvt prophylaxis Progress Note: Quality VTE Deep Vein Thrombosis/Pulmonary Embolism Present on Admission: No
[2018-08-19 10:21] LABS: Calcium 8.7 mg/dL (8.5-10.1); Potassium 3.7 meq/L (3.5-5.1)
[2018-08-19] MEDS: Metoprolol Tartrate 25 MG Tablet PO SCH ×2 (11:30→20:33)
[2018-08-19] MEDS: Sertraline 50 MG Tablet PO SCH (11:30)
[2018-08-19] MEDS: Insulin NovoLOG Aspart Correctional Sugar Inj SQ SCH ×4 (11:30→20:33)
[2018-08-19] MEDS: amLODIPine 10 MG Tablet PO SCH (11:47)
[2018-08-19] MEDS ORDERED: Lidocaine PF 1% Inj 5 ML Syringe OTHER ONE (13:45)
[2018-08-19] MEDS ORDERED: Metoprolol Inj 5 MG/5 ML Vial IV.PUSH ONE (13:45)
[2018-08-19] MEDS ORDERED: Neostigmine Inj 5 MG/5 ML Syringe IV.PUSH ONE (13:45)
[2018-08-19] MEDS ORDERED: Glycopyrrolate Inj 1 MG/5 ML Syringe IV.PUSH ONE (13:45)
[2018-08-19] MEDS ORDERED: Iohexol 350 MG/ML 50 ML Vial (for Rad Diag) IVCONTRAST ONE (14:59)
--- NOTE | 2018-08-19 15:14 | P.OP ---
- Preoperative Diagnosis (1) Retained ureteral stent (2) Bladder calculus (3) Severe sepsis - Postoperative Diagnosis (1) Bladder calculus (2) Retained ureteral stent (3) Severe sepsis Date of procedure: 08/19/18 Procedure: Cystoscopy with cystolitholapaxy, attempted right ureteroscopy, removal of bladder calculus Anesthesia: MODESTO, geovani Surgeon: Cain Benton DO Estimated blood loss (mL): 0 Pathology: other (Bladder calculus fragments) Operation and Findings: 63-year-old female who has a solitary right kidney who had a encrusted retained right ureteral stent for many years. Subsequently, she had basement of a right percutaneous nephrostomy tube. She has recurrent bouts of sepsis with recurrent urinary tract infections. On this admission she was noted to have sepsis due to recurrent urinary tract infection. The urinary tract infection with sepsis has resolved and decision made to bring the patient to the operating room and attempt to remove the bladder calculus along with a retained right ureteral stent leaving the right nephroureteral stent in position. The patient was brought to the operating room identified by myself as Cleo Wilson. She was placed in the dorsal lithotomy position, however, she was contracted. She was then prepped and draped in usual sterile fashion, received preprocedure antibiotics and general endotracheal tube anesthesia was administered. 22 Slov[place] cystoscope was inserted in the bladder and the cystoscopy demonstrated 2 stents in the bladder. One stent had a large bladder stone attached to it and the other one was clean. Using the stone filtrose crusher forceps, the bladder calculus was fragmented into small pieces. Using the iliac evacuator, residual fragments were then removed from the bladder. Using the alligator grasper the stent was grasped and attempt was made to try to pull it out. A 0.35 sensor wire was attempted to pass through the stent but it would not pass up due to stone within the stent. Attempt was then made to pass the rigid ureteroscope along the 2 stents but this was unsuccessful. Decision was then made to abort the procedure. In order to remove the stent in the future, the patient will require right extrapleural shockwave lithotripsy to break up the fragmentation of the upper curl in order then to remove the stent. The patient was stable throughout the entire case and was awoken and extubated transferred recovery in stable condition. She tolerated procedure well.
[2018-08-19] MEDS ORDERED: fentaNYL Citrate Inj 100 MCG/2 ML Ampul ONE (17:17)
[2018-08-20] MEDS: Piperacil/Tazo 4.5 GM Premix 4.5 GM/100 ML BAG IV.SIG SCH ×4 (03:24→22:23)
[2018-08-20] MEDS: KCL 20 mEq/D5W/NaCl 0.45% Inj 1,000 ML IV.CONT SCH ×3 (03:24→17:01)
[2018-08-20] MEDS: hydrALAZINE 50 MG Tablet PO SCH ×3 (05:46→22:19)
[2018-08-20] MEDS: Methadone 10 MG Tablet PO SCH ×4 (05:46→22:20)
[2018-08-20 05:48] LABS: Baso % (Auto) 0.8 % (0.0-2.0); Eos # (Auto) 0.3 th/mm3 (0.0-0.4); Eos % (Auto) 4.9 % (0.0-4.0); Hematocrit 33.5 % (35.0-46.0); Hemoglobin 10.7 gm/dL (11.6-15.3); Lymph # (Auto) 1.1 th/mm3 (1.0-4.8); Lymph % (Auto) 19.1 % (9.0-44.0); Mean Corpuscular HGB Conc 31.9 % (32.0-36.0); Mean Corpuscular Volume 81.6 fL (80.0-100.0); Mean Platelet Volume 9.9 fL (7.0-11.0); Mono # (Auto) 0.3 th/mm3 (0.0-0.9); Mono % (Auto) 4.8 % (0.0-8.0); Neut # (Auto) 4.2 th/mm3 (1.8-7.7); Neut % (Auto) 70.4 % (16.0-70.0); Platelet Count 148 th/mm3 (150-450)
[2018-08-20 06:10] LABS: Calcium 8.7 mg/dL (8.5-10.1); Carbon Dioxide 26.2 meq/L (21.0-32.0); Magnesium 1.7 mg/dL (1.5-2.5); Potassium 3.9 meq/L (3.5-5.1)
[2018-08-20] MEDS: amLODIPine 10 MG Tablet PO SCH (09:17)
[2018-08-20] MEDS: Sertraline 50 MG Tablet PO SCH (09:17)
[2018-08-20] MEDS: Metoprolol Tartrate 25 MG Tablet PO SCH ×2 (09:17→22:22)
[2018-08-20] MEDS: Insulin NovoLOG Aspart Correctional Sugar Inj SQ SCH ×4 (09:18→22:39)
--- NOTE | 2018-08-20 11:27 | P.PNIM ---
Subjective Interval history: patient laying down in bed. Answering my questions and following simple commands. Does not appear to be in any acute distress. Physical Exam Vital signs: Vital Signs 08/19/18 12:00 08/19/18 15:15 08/19/18 15:38 Temperature 97.3 F L 98.3 F 98.3 F Pulse Rate 49 L 96 H 99 H Respiratory Rate 16 18 20 Blood Pressure 214/92 H 180/71 H 150/67 H Pulse Oximetry 97 95 96 08/19/18 15:42 08/19/18 16:05 08/19/18 17:17 Temperature 98.0 F 97.6 F Pulse Rate 90 86 83 Respiratory Rate 20 18 16 Blood Pressure 138/63 155/78 H 166/86 H Pulse Oximetry 96 94 L 96 08/19/18 20:00 08/20/18 00:00 08/20/18 04:00 Temperature 97.8 F 98.1 F 97.7 F Pulse Rate 72 64 66 Respiratory Rate 16 16 16 Blood Pressure 122/73 159/68 H 150/68 H Pulse Oximetry 95 93 L 96 08/20/18 08:00 Temperature 97.7 F Pulse Rate 63 Respiratory Rate 16 Blood Pressure 156/75 H Pulse Oximetry 94 L Intake & Output 08/19/18 08/20/18 08/20/18 18:59 06:59 18:59 Intake Total 1850 / 1850 2400 / 2400 Output Total 975 / 975 Balance 1850 / 1850 1425 / 1425 Weight 86.9 kg Intake: IV 1100 / 1100 2200 / 2200 D5W/1/2NS + KCL 20 mEq Inj 1, 1000 / 1000 2000 / 2000 000 ML @ 100 mls/hr IV.CONT . Q10H [facility] Rx#:[id number] Zosyn 4.5 GM Premix 4.5 gm In 100 / 100 200 / 200 100 ml @ 200 mls/hr IV.SIG Q6H [facility] Rx#:[id number] Oral 200 / 200 Anesthesia Amount 750 / 750 Output: Urine Amount (Stoma) 975 / 975 Nephrostomy Tube Right 975 / 975 Other: # Incontinent Voids 2 Date of Last Bowel Movement 08/18/18 08/19/18 Narrative: Alert and Awake S1S2 CTA b/l Right nephrostomy tube in place draining yellow urine Abd soft, normal bowel sounds 2+ pitting edema of the lower exts Patient has left sided hemiplegia, slurred speech Results Labs CBC & Chem 7: 08/20/18 04:02 08/20/18 04:02 Assessment and Plan Plan This patient is a 63 y/o F under hospice with a pmh of CVA with expressive aphasia and left sided hemiplegia, neurogenic bladder, recurrent UTIs, nephrostomy tube, PEG tube, CKD stage III, anemia, DM, and HTN. Patient presented to the ER from [facility] for evaluation of malfunctioning nephrostomy tube. The nephrostomy tube was replaced and now there is a concern that the ureteral stent is encrusted with a stone and causing recurrent UTIs. 1. Right nephrostomy tube malfunction S/p right nephrostomy tube replacement by IR on 08/06. Now functioning well. Right kidney ureteral stent which is encrusted with a stone and causing recurrent infections. Patient was taken to the OR yesterday by Urology and cystoscopy was done which showed 2 stents in the bladder, one had a large bladder stone attached to it and the other was clean. The calculus was fragmented however the stent was unable to be removed after a few attempts. As per urology note : In order to remove the stent in the future, the patient will require right extrapleural shockwave lithotripsy to break up the fragmentation of the upper curl in order then to remove the stent. Will follow up with urology today is the patient is clear for d/c from their standpoint. 2. Complicated UTI ESBL + E coli. Right ureteral stent encrusted with stone likely the cause. Stone removed yesterday by urology. Blood cxs are negative Urine cxs ESBL E coli, citrobacter koseri, pseudomonas aeroginosa. Currently patient is on zosyn as per ID recs, continue 2 weeks tx after stent removal were IDs recs however stent was unable to be removed. I will follow up with ID for discharge planning today and Antibiotic recs. 3. Insulin Dependent DM Low dose insulin slding scale Basal insulin held due to episodes of hypoglycemia Blood sugars between 70-90. 4. HTN Elevated blood pressure overnight documented. Currently sbp is around 150. Patient is bradycardic occasionally in the low 50s, asymptomatic. BB with holding parameters, will monitor and change meds if needed. Hydralazine dose increased. 5. Schizophrenia Continue risperdal and sertraline 6. CKD Stage III Avoid nephrotoxic agents. Cr. 1.3 as of today 7. Hx of CVA Left sided hemiplegia and dysphagia On pureed diet with nectar thickened liquids. Assist with feedings with HOB greater than 45 degrees Continue aspirin. SCDs for dvt prophylaxis Progress Note: Quality VTE Deep Vein Thrombosis/Pulmonary Embolism Present on Admission: No
--- NOTE | 2018-08-20 13:43 | P.PNURO ---
Subjective Patient symptoms today: Pt seen and examined. No complaints. Objective Vital Signs: Vital Signs 08/19/18 15:15 08/19/18 15:38 08/19/18 15:42 Temperature 98.3 F 98.3 F Pulse Rate 96 H 99 H 90 Respiratory Rate 18 20 20 Blood Pressure 180/71 H 150/67 H 138/63 Pulse Oximetry 95 96 96 08/19/18 16:05 08/19/18 17:17 08/19/18 20:00 Temperature 98.0 F 97.6 F 97.8 F Pulse Rate 86 83 72 Respiratory Rate 18 16 16 Blood Pressure 155/78 H 166/86 H 122/73 Pulse Oximetry 94 L 96 95 08/20/18 00:00 08/20/18 04:00 08/20/18 08:00 Temperature 98.1 F 97.7 F 97.7 F Pulse Rate 64 66 63 Respiratory Rate 16 16 16 Blood Pressure 159/68 H 150/68 H 156/75 H Pulse Oximetry 93 L 96 94 L Intake & Output 08/19/18 08/20/18 08/20/18 18:59 06:59 18:59 Intake Total 1850 / 1850 2400 / 2400 Output Total 975 / 975 Balance 1850 / 1850 1425 / 1425 Weight 86.9 kg Intake: IV 1100 / 1100 2200 / 2200 D5W/1/2NS + KCL 20 mEq Inj 1, 1000 / 1000 2000 / 2000 000 ML @ 100 mls/hr IV.CONT . Q10H [facility] Rx#:[id number] Zosyn 4.5 GM Premix 4.5 gm In 100 / 100 200 / 200 100 ml @ 200 mls/hr IV.SIG Q6H [facility] Rx#:[id number] Oral 200 / 200 Anesthesia Amount 750 / 750 Output: Urine Amount (Stoma) 975 / 975 Nephrostomy Tube Right 975 / 975 Other: # Incontinent Voids 2 Date of Last Bowel Movement 08/18/18 08/19/18 Result Diagrams: 08/20/18 04:02 08/20/18 04:02 Medications and IVs: Active Medications Generic Name Dose Route Start Last Admin Trade Name Freq PRN Reason Stop Dose Admin Acetaminophen 650 mg 08/08/18 13:34 08/18/18 17:34 Tylenol PO 650 mg Q4H PRN Administration headache/fever/pain1-5 Al Hydroxide/Mg Hydroxide 30 ml 08/05/18 21:56 Milk Of Magnesia Liq PO Q12H PRN Mild Constipation Amlodipine Besylate 10 mg 08/19/18 10:45 08/20/18 09:17 Norvasc PO 10 mg DAILY [facility] Administration Bisacodyl 10 mg 08/05/18 21:56 Dulcolax Supp RECTAL DAILY PRN SEVERE CONSITIPATION Clonidine HCl 0.1 mg 08/07/18 08:08 08/19/18 01:51 Catapres PO 0.1 mg Q8H PRN Administration SBP >160 or DPB >100 Dextrose 50 ml 08/05/18 22:00 D50w Vial IV.PUSH UNSCH PRN PER HYPOGLYCEMIA PROTOCOL Glucagon 1 mg 08/05/18 22:00 08/06/18 14:36 Glucagon Inj OTHER 1 mg PRN PRN Administration for Hypoglycemia Protocol Hydralazine HCl 75 mg 08/20/18 14:00 08/20/18 13:13 Apresoline PO 75 mg Q8HR [facility] Administration Piperacillin/Tazobactam/Dextrose 4.5 gm in 100 mls @ 200 mls/hr 08/11/18 15: 00 08/20/18 09:17 Zosyn 4.5 Gm Premix IV.SIG 200 mls/hr Q6H [facility] Administration Potassium Chloride/Dextrose/Sod Cl 1,000 mls @ 100 mls/hr 08/06/18 12:00 05:46 D5w/1/2ns + Kcl 20 Meq Inj IV.CONT Not Given .Q10H [facility] Insulin Aspart 0 unit 08/06/18 08:00 08/20/18 12:05 Novolog Insulin Correctional Sugar Inj SQ Not Given ACHS [facility] Protocol Insulin Detemir 5 unit 08/06/18 09:00 08/09/18 10:19 Levemir Inj SQ 5 unit BID [facility] Administration Isosorbide Dinitrate 20 mg 08/07/18 14:00 08/20/18 13:12 Isordil PO 20 mg Q8HR [facility] Administration Lorazepam 0.5 mg 08/07/18 08:08 08/12/18 21:09 Ativan PO 0.5 mg Q4H PRN Administration Anxiety Methadone HCl 5 mg 08/05/18 23:15 08/20/18 06:16 Dolophine PO Not Given Q8H [facility] Metoprolol Tartrate 25 mg 08/07/18 09:00 08/20/18 09:17 Lopressor PO 25 mg BID [facility] Administration Miscellaneous Information 0 each 08/19/18 15:17 Misc Nursing Information OTHER 08/20/18 15:16 UNSCH PRN SEE LABEL COMMENTS Morphine Sulfate 2 mg 08/09/18 11:36 08/19/18 22:31 Morphine Inj IV.PUSH 2 mg Q4H PRN Administration PAIN SCALE 6 TO 10 Ondansetron HCl 4 mg 08/05/18 21:56 Zofran Inj IV.PUSH Q6H PRN NAUSEA OR VOMITING Risperidone 0.5 mg 08/07/18 09:00 08/20/18 13:12 Risperdal PO 0.5 mg TID [facility] Administration Sennosides 17.2 mg 08/05/18 21:56 Senokot PO Q12H PRN Moderate Constipation Sertraline HCl 50 mg 08/07/18 09:00 08/20/18 09:17 Zoloft PO 50 mg DAILY [facility] Administration Sodium Chloride 2 ml 08/06/18 09:00 08/20/18 09:17 Ns Flush IV.FLUSH 2 ml BID [facility] Administration Sodium Chloride 2 ml 08/05/18 21:56 Ns Flush IV.FLUSH PRN PRN FLUSH AFTER USING IV ACCESS Objective Remarks: Abd:soft,nt,nd PCNT: urine clear. 08/13 Abd:soft,nt,nd PCNT: urine clear. 08/14 Abd:soft,nt,nd PCNT: urine clear 08/15 Abd:soft,nt,nd PCNT: urine clear 08/20 Abd:soft,nt,nd PCNT: urine clear Assessment and Plan - Plan 08/12 63 y.o male with encrusted stent with bladder stone with complicated UTI. PT s/ p Nephroureteral stent change. Encrusted JJ stent is present beside nephroureteral stent with bladder attached to stent in bladder. Encrusted stent will need to be removed in the future after her UTI has cleared. This will help reduce future UTI's. Will need to d/w family. 08/13 63 y.o female with encrusted right ureteral stent with bladder stone. Stent needs to be removed as she has a PCNT with nephroureteral stent in place which was recently changed and is patent. Pt will continue to get complicated UTI's as long as encrusted stent is in place. Will plan of cysto with laser of bladder stone of encrusted stent with removal of stent in OR tomorrow as long as she is cleared by medicine and family agrees. 08/14 63-year-old female with encrusted right ureteral stent with bladder calculus. Multiple attempts were made to contact the son by both myself and the staff and this was unsuccessful. The patient explained at length that surgery was recommended to remove her stent and she has refused. Would recommend change of her nephrostomy tube in approximately 3 months as an outpatient by interventional radiology. 08/15 63-year-old female with encrusted right ureteral stent with bladder calculus. Family contacted. Will plan for cysto; cytolithopaxy with left URS and laser lithotripsy with stent removal tomorrow. 08/20 63 y.o female s/p cysto; cystolithopaxy with removal of bladder stone. I was unable to remove entire stent yesterday due to encrustation. Pt will need outpt ESWL to break up stone on proximal end of stent prior to removal.
--- NOTE | 2018-08-20 16:15 | P.PNID ---
Subjective Remarks: ID coverage. Notes reviewed. Patient underwent attempt at removal of the bilateral renal stents which was unsuccessful. She was noted to have obstruction and it was difficult to pass scope through the stent. She is in no acute distress. Not meaningfully interactive. Afebrile. Patient is a 63-year-old female, with known history of CVA, has aphasia and left -sided hemiplegia, brought into the hospital for further evaluation of her right nephrostomy tube. Patient apparently has been leaking around the site and it is unclear as to how long that has been going on. Her urinalysis on admission did show evidence of pyuria. Low-grade temps [address] of the abdomen and pelvis is showing significant hydronephrosis on the right side. Interventional radiology exchanged her right nephrostomy on August 06. The urine culture is growing E. coli ESBL positive as well as Citrobacter. Patient is afebrile. Her WBC on admission is normal. Her creatinine was up to 1.56 on admission. She is currently on Zosyn. Infectious disease consultation has been requested to assist with evaluation and treatment of UTI with E. coli ESBL positive. Repeat US with renal calculi and mild hydro on R; L kidney not visualized Repeat UA, pyuria is better Repeat CT A/P - same hydro R, kidney stones noted, stent in place Antibiotics: Zosyn Past Medical History: Anemia Atrial fibrillation CAD (coronary artery disease) CVA (cerebral vascular accident) Chronic kidney disease (CKD) Diabetes History of carotid stenosis History of cholelithiasis Hyperlipidemia Hypertension Neurogenic bladder Osteoarthritis Schizophrenia Hip fracture requiring operative repair History of ankle surgery History of coronary artery stent placement History of tonsillectomy S/P percutaneous endoscopic gastrostomy (PEG) tube placement History of hysterectomy (Resolved) Allergies/Adverse Reactions: Allergies *MDRO Multi-Drug Resistant Organism Adverse Reaction (Unknown, Uncoded 11/10/17 06:21) 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 ESBL + E. 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 Objective Vital Signs 08/19/18 17:17 08/19/18 20:00 08/20/18 00:00 Temperature 97.6 F 97.8 F 98.1 F Pulse Rate 83 72 64 Respiratory Rate 16 16 16 Blood Pressure 166/86 H 122/73 159/68 H Pulse Oximetry 96 95 93 L 08/20/18 04:00 08/20/18 08:00 08/20/18 12:00 Temperature 97.7 F 97.7 F 98.4 F Pulse Rate 66 63 57 L Respiratory Rate 16 16 17 Blood Pressure 150/68 H 156/75 H 135/63 Pulse Oximetry 96 94 L Intake & Output 08/19/18 08/20/18 08/20/18 18:59 06:59 18:59 Intake Total 1850 / 1850 2400 / 2400 Output Total 975 / 975 Balance 1850 / 1850 1425 / 1425 Weight 86.9 kg Intake: IV 1100 / 1100 2200 / 2200 D5W/1/2NS + KCL 20 mEq Inj 1, 1000 / 1000 2000 / 2000 000 ML @ 100 mls/hr IV.CONT . Q10H [facility] Rx#:[id number] Zosyn 4.5 GM Premix 4.5 gm In 100 / 100 200 / 200 100 ml @ 200 mls/hr IV.SIG Q6H [facility] Rx#:[id number] Oral 200 / 200 Anesthesia Amount 750 / 750 Output: Urine Amount (Stoma) 975 / 975 Nephrostomy Tube Right 975 / 975 Other: # Incontinent Voids 2 Date of Last Bowel Movement 08/18/18 08/19/18 Lab - Hematology Results 08/20/18 04:02 WBC 6.0 RBC 4.10 Hgb 10.7 L Hct 33.5 L MCV 81.6 MCH 26.0 L MCHC 31.9 L RDW 16.0 Plt Count 148 L MPV 9.9 Neut % (Auto) 70.4 H Lymph % (Auto) 19.1 [place] % (Auto) 4.8 Eos % (Auto) 4.9 H Baso % (Auto) 0.8 Neut # (Auto) 4.2 Lymph # (Auto) 1.1 [place] # (Auto) 0.3 Eos # (Auto) 0.3 Baso # (Auto) 0.0 WBC Differential . Differential Comment Auto diff final Lab - Chemistry Results 08/18/18 08/18/18 08/19/18 17:24 21:42 06:41 Sodium 144 Potassium 3.7 Chloride 110 H Carbon Dioxide 26.0 Anion Gap 8 BUN 9 Creatinine 1.30 H Estimated GFR 41 L POC Glucose 86 79 Random Glucose 73 L Calcium 8.7 Magnesium 08/19/18 08/19/18 08/19/18 10:24 12:20 15:48 Sodium Potassium Chloride Carbon Dioxide Anion Gap BUN Creatinine Estimated GFR POC Glucose 84 82 93 Random Glucose Calcium Magnesium 08/19/18 08/20/18 08/20/18 20:33 04:02 07:47 Sodium 144 Potassium 3.9 Chloride 109 H Carbon Dioxide 26.2 Anion Gap 9 BUN 8 Creatinine 1.31 H Estimated GFR 41 L POC Glucose 92 82 Random Glucose 85 Calcium 8.7 Magnesium 1.7 08/20/18 11:40 Sodium Potassium Chloride Carbon Dioxide Anion Gap BUN Creatinine Estimated GFR POC Glucose 110 Random Glucose Calcium Magnesium Imaging: ITS Impressions Chest X-Ray 08/05/18 17:53 CONCLUSION: No obvious airspace disease. Ureterogram 08/06/18 00:00 CONCLUSION: 1. Uncomplicated nephroureteral catheter exchange as above. Abdomen/Bladder Ultrasound 08/08/18 00:00 CONCLUSION: 1. Right-sided ureteral stent with multiple right-sided renal calculi as seen on recent CT. Mild hydronephrosis on the right. Left kidney not visualized. Abdomen/Pelvis CT 08/12/18 00:00 CONCLUSION: 1. Stable appearance to the right renal collecting system dilation, multiple calcified right renal stones, and internal/external drainage catheters. 2. No new findings. Physical Exam: GENERAL: awake and alert, NAD. SKIN: Cool and dry. No generalized rash HEENT: Extraocular movements grossly intact, pupils reactive to light. No icterus. Oropharynx appears moist. NECK: Trachea midline. Supple and not tender, no meningeal signs CARDIOVASCULAR: Regular rate and rhythm. No murmurs, rubs or gallops heard RESPIRATORY: Clear to auscultation. Breath sounds equal bilaterally. No rales , wheezing or rhonchi ABDOMEN: Distended, healed previous PEG site, min tenderness BACK: R nephrostomy in place, urine with some sediment EXTREMITIES: No clubbing, cyanosis. Both feet plantar flexed, with some mild pedal edema. NEUROLOGICAL: Awake and alert. Decreased nasolabial fold on left. Spastic in LUE; no movement in LLE. PSYCHIATRIC: Awake, calm LINE: No evidence of infection Assessment and Plan - Plan Impression Complicated UTI, has R nephrouereteral stent and nephrostomy - UC E coli ESBL and Citrobacter - initially with severe hydro on CT; US with mild hydro, has R kidney stones - repeat UC with MDR PSAE, Citrobacter Sepsis due to above, better Renal insufficiency, creatinine up again Hx CVA with L sided weakness and aphasia Recommendation Continue IV Zosyn. Since the stent was not able to be removed, I recommend stopping the IV antibiotics and Give antibiotics around the time that the future removal is anticipated. Last urine culture was negative. Because the Pseudomonas was very resistant to antibiotics there is not a oral antibiotic option. Await the decision from urology and if it is decided to remove the stent in the future, stop the Zosyn. Antibiotics can be given prior to stent removal or lithotripsy.
[2018-08-21] MEDS: Piperacil/Tazo 4.5 GM Premix 4.5 GM/100 ML BAG IV.SIG SCH ×2 (04:26→10:20)
[2018-08-21] MEDS: KCL 20 mEq/D5W/NaCl 0.45% Inj 1,000 ML IV.CONT SCH (04:27)
[2018-08-21] MEDS: Methadone 10 MG Tablet PO SCH ×2 (06:32→15:00)
[2018-08-21] MEDS: hydrALAZINE 50 MG Tablet PO SCH ×2 (06:32→13:04)
[2018-08-21] MEDS: Insulin NovoLOG Aspart Correctional Sugar Inj SQ SCH ×2 (08:30→13:04)
[2018-08-21] MEDS: Metoprolol Tartrate 25 MG Tablet PO SCH (10:20)
[2018-08-21] MEDS: amLODIPine 10 MG Tablet PO SCH (10:20)
[2018-08-21] MEDS: Sertraline 50 MG Tablet PO SCH (10:21)
--- NOTE | 2018-08-21 10:48 | P.DS ---
DS: Providers Date of admission: 08/07/18 14:19 Primary care physician: UNKNOWN Consults: 08/06/18 08:19 HUB Only Consult Order Routine Consulting Provider: [facility] Kam Delgado 08/08/18 08:56 Consult to Infectious Diseases Routine Consulting Provider: Nicole Moctezuma Reason for Consultation: chronic nephrostomy tube, urine culture with ESBL E.coli and citrobacter, please assist with antibiotics Notified:: Service Spoke with:: dennis Date Notified:: 08/08/18 Time Notified:: 09:05 Ordering Provider: HELDER 08/11/18 12:48 Consult to Urology Routine Consulting Provider: Cain Benton Reason for Consultation: uti, persistent hydro with stones R kidney Notified:: Office Spoke with:: Rosalio Date Notified:: 08/11/18 Time Notified:: 13:22 Ordering Provider: ENRIQUE Brief History from admission: 63-year-old female with a past medical history of CVA with expressive aphasia and left-sided hemiplegia, neurogenic bladder, recurrent UTIs, nephrostomy tube , PEG tube, CKD, anemia, diabetes and hypertension presents to the emergency department from [facility] for evaluation of right nephrostomy tube. According to the [facility] report the nephrostomy tube has been "leaking" for an unspecified period of time. The patient is unable to provide any additional history. On examination, the right nephrostomy tube appears loose with exposure of fenestrations and urine is soaked through the bandages. Small amount of urine is in the nephrostomy bag. Remainder of review of systems unobtainable secondary to patient's mental status. DS: Summary This patient is a 63 y/o F under hospice with a pmh of CVA with expressive aphasia and left sided hemiplegia, neurogenic bladder, recurrent UTIs, nephrostomy tube, PEG tube, CKD stage III, anemia, DM, and HTN. Patient presented to the ER from [facility] for evaluation of malfunctioning nephrostomy tube. The nephrostomy tube was replaced and now there is a concern that the ureteral stent is encrusted with a stone and causing recurrent UTIs. 1. Right nephrostomy tube malfunction 2. Complicated UTI ESBL + E coli. S/p right nephrostomy tube replacement by IR on 08/06. Now functioning well. Right kidney ureteral stent which is encrusted with a stone and causing recurrent infections. Patient was taken to the OR yesterday by Urology and cystoscopy was done which showed 2 stents in the bladder, one had a large bladder stone attached to it and the other was clean. The calculus was fragmented however the stent was unable to be removed after a few attempts. Urine cxs ESBL E coli, citrobacter koseri, pseudomonas aeroginosa. As per urology note : In order to remove the stent in the future, the patient will require right extrapleural shockwave lithotripsy to break up the fragmentation of the upper curl in order then to remove the stent. Patient will need to follow up with Urology outpt in 1-2 weeks for this procedure and stent removal. The patient has MDR pseudomonas and ID is recommending stopping antibiotics for now. Repeat urine cx is negative from 04/18. Repeat urine culture in one week. Patient should be started back on IV zosyn around the time of the stent removal as per ID recs. 3. Insulin Dependent DM Continue home medications for DM Follow up with pcp in one week. 4. HTN Continue home meds, dose of hydralazine increased. Continue to monitor and adjust meds as needed. 5. Schizophrenia Continue risperdal and sertraline 6. CKD Stage III Avoid nephrotoxic agents. Cr. 1.3 F/u outpt with pcp. 7. Hx of CVA 8. Chronic pain Left sided hemiplegia and dysphagia On pureed diet with nectar thickened liquids. Assist with feedings with HOB greater than 45 degrees Continue aspirin. Patient is chronically on pain medications. Script for norco will be given and can be continued at the snf. She is also on methadone. Eforsce was checked prior to giving the script, patient is on chronic pain medications at the SNF. I recommend that her primary care doctor and physicians adjust her pain meds because she is on morphine, norco, and methadone. Time Spent with Patient Total time spent providing and/or coordinating discharge services: Quality: VTE Deep Vein Thrombosis/Pulmonary Embolism Present on Admission: No Exam Narrative Exam Narrative: S1S2 CTA b/l Right nephrostomy tube in place draining yellow urine Abd soft, normal bowel sounds 2+ pitting edema of the lower exts Patient has left sided hemiplegia, slurred speech Results Pending studies at discharge: Pending at discharge 08/19/18 08:48 Surgical [PTH] Routine Labs on day of discharge: Labs from last 24 hours 08/21/18 08/20/18 08/20/18 07:53 22:36 17:14 POC Glucose 83 110 132 H 08/20/18 11:40 POC Glucose 110 Impressions ITS Impressions Chest X-Ray 08/05/18 17:53 CONCLUSION: No obvious airspace disease. Ureterogram 08/06/18 00:00 CONCLUSION: 1. Uncomplicated nephroureteral catheter exchange as above. Abdomen/Bladder Ultrasound 08/08/18 00:00 CONCLUSION: 1. Right-sided ureteral stent with multiple right-sided renal calculi as seen on recent CT. Mild hydronephrosis on the right. Left kidney not visualized. Abdomen/Pelvis CT 08/12/18 00:00 CONCLUSION: 1. Stable appearance to the right renal collecting system dilation, multiple calcified right renal stones, and internal/external drainage catheters. 2. No new findings. Discharge Plan Discharge Disposition Patient Disposition: Discharge to SNF Discharge Condition Condition: Stable Discharge Order Discharge Orders: Discharge Order (Routine); Ordered 08/21/18 Ordered By: Willard Camara ED Use Only Admit Order (Routine); Ordered 08/05/18 Ordered By: Israel Yu Physicians Team ED Provider: Lorelei Cameron ED Midlevel Provider: Israel Yu Primary Care Provider: PETROS, Attending Provider: Willard Camara Other Providers: [facility],Agency ; Nicole Moctezuma ; Cain Benton Rxs /Orders / Referrals /Forms Prescriptions: New methadone 5 mg Tablet 5 mg PO Q8H Qty: 9 RF: 0 hydrocodone-acetaminophen [[place]] 10-325 mg tablet 1 tab PO Q6H Qty: 12 RF: 0 amlodipine [Norvasc] 10 mg Tablet 10 mg PO DAILY Qty: 30 RF: 0 hydralazine 50 mg Tablet 75 mg PO Q8HR Qty: 90 RF: 0 Continue sennosides [senna] 8.6 mg Tablet 8.6 mg Feeding Tube BID RF: 0 clonidine HCl [Catapres] 0.1 mg Tablet 0.1 mg Feeding Tube TID PRN (Reason: SBP >160 or DPB >100) RF: 0 magnesium hydroxide [Milk of Magnesia] 400 mg/5 mL Suspension 30 ml Feeding Tube Q4HR PRN (Reason: Constipation) RF: 0 isosorbide dinitrate 20 mg Tablet 20 mg Feeding Tube Q8HR RF: 0 omeprazole 20 mg Capsule,Delayed Release(Dr/Ec) 20 mg Feeding Tube DAILY RF: 0 sertraline [Zoloft] 50 mg Tablet 50 mg Feeding Tube DAILY RF: 0 risperidone [Risperdal] 0.5 mg Tablet 0.5 mg Feeding Tube TID RF: 0 multivitamin,[id number] [Thera-M] Tablet 1 tab Feeding Tube DAILY RF: 0 metoprolol tartrate 25 mg Tablet 25 mg Feeding Tube BID RF: 0 water for injection, sterile Parenteral Solution 200 ml PO Q6HR RF: 0 gabapentin 400 mg Capsule 400 mg PO BID RF: 0 lorazepam 0.5 mg Tablet 0.5 mg Feeding Tube Q4H PRN (Reason: Anxiety) RF: 0 gabapentin 100 mg capsule 300 mg Feeding Tube TID RF: 0 aspirin [Aspirin Low Dose] 81 mg Tablet,Delayed Release (Dr/Ec) 81 mg PO DAILY RF: 0 gabapentin 300 mg Capsule 300 mg PO DAILY RF: 0 insulin detemir U-100 [Levemir U-100 Insulin] 100 unit/mL Solution 5 unit SUBCUT BID RF: 0 Discontinued hydralazine 100 mg Tablet 50 mg Feeding Tube Q8HR Qty: 0 RF: 0 oxycodone-acetaminophen 10-325 mg Tablet 1 tab PO Q4H PRN (Reason: Pain) RF: 0 morphine concentrate 20 mg/mL Syringe 10 mg SUBLINGUAL Q3H PRN (Reason: Pain) RF: 0 Referrals: [facility],Agency [Agency] - See Instructions Cain Benton DO [UROLOGY] - See Instructions UNKNOWN, [Primary Care Provider] - See Instructions Discharge Instructions Patient Printed Instructions: Kidney Stones (DC), Meal Planning with Diabetes Exchanges (DC), Nephrostomy Tube Care (DC), Cystoscopy (DC) Additional Instructions: HEART HEALTHY, DIABETIC DIET Repeat urine cx in one week. Follow up with Urology in one week for stent removal. Patient should be started on IV antibiotics, Zosyn around the time of stent removal as per ID recs. Status ED Status: Left Department
[2018-08-21 12:33] VITALS: BP 156/69; PULSE 65; RESP 17; TEMP 98.4; O2SAT 94
== END 2018-08-21 15:19 | DRG 699 ==
LOC: NEPC 17:04 → NEDA 21:15 → INTOOBSV 21:15 → NEPFCDU 23:01 → N07 08-08 16:47
PROVIDERS: ADMIT Hospitalist; ATTEND Hospitalist
CPT/HCPCS: 50387; 71010; 71045; 74176; 76775; 76937; 80048; 80053; 81001; 82365; 82370; 82948; 82962; 83605; 83735; 85025; 85610; 85730; 87040; 87077; 87086; 87186; 88300; 90761; 90765; 92526; 92610; 96361; 96365; 96366; 96372; 96375; 96376; 99145; 99152; 99153; 99285; A4646; C1758; C1769; C1877; C9116; G0195; G0378; G8996; G8997; J0360; J1335; J1580; J1610; J1644; J1815; J2250; J2270; J2405; J2543; J2704; J2710; J3010; J3480; J7030; Q9950; Q9965; Q9967